=== PATIENT | female | born 1960 | race Caucasian/White ===

== ENCOUNTER 2023-02-09 22:14 | Outpatient (REF) | payer BC, SELFPAY ==
[2023-02-13 16:10] LABS: Age Gdln ACOG Testing Note (.); HPV Aptima Negative (Negative); IGP, Aptima HPV, rfx 16/18,45 Note (.)
== END 2023-02-09 22:15 | disposition home or self-care (01) ==
LOC: LAB 22:14
PROVIDERS: PCP Family Medicine; Visit Provider Physician Assistant
DX: Z01.419 Encounter for gynecological examination (general) (routine) without abnormal findings (principal)
CPT/HCPCS: 87624; G0145

== ENCOUNTER 2023-02-24 09:20 | Outpatient (OUT) | payer BC, SELFPAY ==
[2023-02-24 09:51] LABS: Estimated Average Glucose 146 mg/dL; Glycohemoglobin A1C 6.7 % (4.5-6.2)
[2023-02-24 10:09] LABS: Alanine Aminotransferase 18 U/L (14-59); Albumin Globulin Ratio 1.2; Albumin Level 3.6 g/dL (3.4-5.0); Alkaline Phosphatase 83 U/L (46-116); Aspartate Amino Transferase 11 U/L (15-37); Bilirubin Direct 0.1 mg/dL (0.0-0.2); Bilirubin Total 0.3 mg/dL (0.2-1.0); Chol HDL Ratio 3.2; Cholesterol 203 mg/dL (<=200); Globulin 3.1 g/dL; HDL Cholesterol 64 mg/dL (40-60); Total Protein 6.7 g/dL (6.4-8.2); Triglycerides 181 mg/dL (<=150); VLDL CHOLESTEROL 36.2 mg/dL
== END 2023-02-24 09:21 | disposition home or self-care (01) ==
LOC: LAB 09:22
PROVIDERS: PCP Family Medicine; Visit Provider Family Medicine
DX: E78.5 Hyperlipidemia, unspecified (principal); E11.9 Type 2 diabetes mellitus without complications
CPT/HCPCS: 36415; 80061; 80076; 83036

== ENCOUNTER 2023-05-12 12:49 | Outpatient (OUT) | payer BC, SELFPAY ==
--- NOTE | 2023-05-12 12:52 | MM_ITS ---
Patient: DIALLO RAHMAN Exam Date: 05/12/2023 : 1960 Gender:F Ordering : DR Abiodun Brewer . Admission #: [id number] Family : DR Prem Verdin . Order #: [id number] CLICK HERE TO VIEW EXAM RADIOLOGY REPORT PROCEDURE: MM TOMOSYNTHESIS SCREENING BI COMPARISON: MG MAMM SCREEN 3D [facility] CAD, 04/24/2022. MG MAMM SCREEN 3D [facility]IS[facility] CAD, 03/29/2021. INDICATIONS: Screening Calculator Name NCI Breast Cancer Risk Assessment Tool 5 Year Breast Cancer Risk 1.80% Lifetime Breast Cancer Risk 7.20% Personal Breast Cancer No Personal Ovarian Cancer No Treatments None Family Cancers Brother with kidney cancer at age 67. LOCATION: [facility] BREAST COMPOSITION: Heterogeneously dense,which may obscure small masses. FINDINGS: DIAGNOSTIC CATEGORY 2--BENIGN FINDING. NO CHANGE FROM COMPARISON. Scattered benign-appearing calcifications are present. Scattered benign-appearing lymph nodes are present. RIGHT BREAST: No significant suspicious finding. LEFT BREAST: No significant suspicious finding. RECOMMENDATIONS: ROUTINE MAMMOGRAM AND CLINICAL EVALUATION IN 12 MONTHS. PLEASE NOTE: A NORMAL MAMMOGRAM DOES NOT EXCLUDE THE POSSIBILITY OF BREAST CANCER. A CLINICALLY SUSPICIOUS PALPABLE LUMP SHOULD BE BIOPSIED. Dictated by: Gerardo Rock MD on 05/12/2023 at 15:39 Approved by: Gerardo Rock MD on 05/12/2023 at 15:40
== END 2023-05-12 12:50 | disposition home or self-care (01) ==
LOC: MAMMO 12:49
PROVIDERS: PCP Family Medicine; Visit Provider Obstetrics & Gynecology
DX: Z12.31 Encounter for screening mammogram for malignant neoplasm of breast (principal); Z80.51 Family history of malignant neoplasm of kidney
CPT/HCPCS: 77063; 77067

== ENCOUNTER 2024-02-01 08:45 | Outpatient (OUT) | payer MEDICARE, BC, SELFPAY ==
--- OUTSIDE RECORDS SUMMARY | 2024-02-01 08:51 | XMS_ITS | CCD ---
Author Organization [facility] Care Team Providers Care Teacher Instrumental Name Role Phone Rafa Verdin Primary Care Provider Unavailabl e Yehuda Camara Attending Provider Unavailable Rafa Verdin MD Primary Care Provider [phone] Yehuda Camara Unavailable Jose Hwang II Unavailable Rick Stephenson Unavailable Rafa Verdin MD Primary Care Provider [phone] MD Rafa Verdin Primary Care Provider [phone] MD Kee Serrato Attending Provider Kee Serrato Attending Unavailable Kee Serrato Admitting Unavailable Rafa Verdin Primary Care Unavailable Rafael Hernandez Attending Unavailable Rafael Hernandez Admitting Unavailable Rafa Verdin M Primary Care Unavailable Yehuda Camara Attending Unavailable Yehuda Camara Admitting Unavailable Rafa Verdin Primary Care Unavailable BRIANNA ROMERO Admitting Unavailable MARE Avendaño, DR CRAIG Primary Care Unavailable BRIANNA ROMERO Attending Unavailable BRIANNA ROMERO Consulting Unavailable DAYANA DUTTA Consulting Unavailable RAYMONDY ., DR CRIAG Admitting Unavailable HOY ., DR CRAIG Attending Unavailable HOY ., DR CRAIG Primary Care Unavailable HOY ., DR CRAIG Admitting Unavailable HOY ., DR CRAIG Referring Unavailable HOY ., DR CRAIG Attending Unavailable HOY ., DR CRAIG Consulting Unavailable HOY ., DR CRAIG Primary Care Unavailable TAMMY ., DR SEYMOUR Admitting Unavailable TAMMY ., DR SEYMOUR Attending Unavailable HOY ., DR CRAIG Primary Care Unavailable TAMMY ., DR SEYMOUR Consulting Unavailable TAMMY ., DR SEYMOUR Admitting Unavailable TAMMY ., DR SEYMOUR Attending Unavailable SPARLAND, DR RENETTA Akhtar Consulting Unavailable HOY ., DR CRAIG Primary Care Unavailable TAMMY ., DR SEYMOUR Consulting Unavailable KEE SERRATO Admitting Unavailable MARE ., DR CRAIG Primary Care Unavailable KEE SERRATO Attending Unavailable KEE SERRATO Consulting Unavailable TAMMY ., DR SEYMOUR Admitting Unavailable TAMMY ., DR SEYMOUR Attending Unavailable SPARLAND, DR RENETTA Akhtar Consulting Unavailable HOY ., DR CRAIG Primary Care Unavailable TAMMY ., DR SEYMOUR Consulting Unavailable Rafa Verdin MD Primary Care Provider [phone] SELF, SELF Referring Unavailable RAN, CYNTHIA Attending Unavailable HOY, RAFA M Primary Care Unavailable RAN, CYNTHIA Referring Unavailable RAN, CYNTHIA Attending Unavailable HOY, RAFA M Primary Care Unavailable SELF, SELF Referring Unavailable RAN, CYNTHIA Attending Unavailable HOY, RAFA M Primary Care Unavailable SELF, SELF Referring Unavailable RAN, CYNTHIA Attending Unavailable HOY, RAFA M Primary Care Unavailable HOY, RAFA M Primary Care Unavailable RAN, CYNTHIA Attending Unavailable RAN, CYNTHIA Referring Unavailable NICOLE, KEE Attending Unavailable RAYMONDY, RAFA M Primary Care Unavailable KEE SERRATO Referring Unavailable SELF, SELF Referring Unavailable HOY, RAFA M Primary Care Unavailable NICOLE, KEE Attending Unavailable RAN, CYNTHIA Referring Unavailable RAN, CYNTHIA Attending Unavailable HOY, RAFA M Primary Care Unavailable Unavailable Unavailable Unavailable Allergies Allergy Classification Reported Allergen(s) Allergy Type Date of Onset Reaction(s) Facility (17 sources) Diclofenac; Translations: [diclofenac] Drug Allergy 07-06-19 18 Nausea Only [facility] (17 sources) Lisinopril; Translations: [lisinopril] Drug Allergy 04-18-20 19 Cough [facility] (20 sources) pioglitazone; Translations: [pioglitazone] Drug Allergy 09-28-19 19 Itching [facility] (3 sources) Sulfonamides (Antibiotic); Translations: [Sulfa (Sulfonamide Antibiotics)] Allergy to substance 09-28-19 Rash [facility] (20 sources) traMADol; Translations: [tramadol] Drug Allergy 09-28-19 19 Itching, rash [facility] (12 sources) Sulfonamides (Antibiotic) Propensity to adverse reactions to drug 10-11-19 22 Hives [facility] (8 sources) Nisoldipine Drug Allergy rash [facility] Other (8 sources) Sulfamethoxazole / Trimethoprim Drug Allergy Unknown [facility] Other (8 sources) Sulfonamides (Antibiotic) Propensity to adverse reactions Unknown [facility] Other (6 sources) sulfaSALAzine Drug Allergy Unknown [facility] Other (1 source) meloxicam Drug Allergy [facility] (2 sources) pioglitazone Drug Allergy [facility] (2 sources) Sulfonamides (Antibiotic) Drug allergy (disorder) [facility] (2 sources) traMADol Drug Allergy [facility] Medications Current Medications Medication Drug Class(es) Dates Sig (Normalized) Sig (Original) acetaminophen 325 mg oral tablet (15 sources) Start: 03-04-2022 take 2 tablets by mouth every four hours as needed acetaminophen 325 MG tablet Take 2 tablets by mouth every 4 hours as needed for Mild Pain. 50 tablet 1 03/04/2022 Active Start: 04-18-2019 End: 05-03-2019 take 2 tablets by mouth every six hours Acetaminophen (Tylenol Extra Strength) 500 mg Tablet Discontinued 1000 MG PO Q6H April 17, 2019 11:00pm May 03, 2019 8:44am Start: 09-13-2018 End: 09-28-2018 take 2 tablets by mouth every six hours Acetaminophen (Tylenol Extra Strength) 500 mg Tablet Discontinued 1000 MG PO Q6H September 12, 2018 11:00pm September 28, 2018 10:29am take 1 tablet by jessica th every four hours Tylenol 325 MG 1 tablet as needed Orally every 4 hrs Active amoxicillin 500 mg oral capsule (10 sources) Penicillin-class Antibacterial Start: 12-05-2021 amoxicillin 500 MG capsule Prior to dental work. 0 12/05/2021 Active aspirin 81 mg delayed release oral tablet (8 sources) Platelet Aggregation Inhibitor, Nonsteroidal Anti-inflammatory Drug Start: 03-04-2022 aspirin EC [address] Take 1 table twice a day for 30days. This medication is for blood clot prevention. 60 tablet 0 03/04/2022 Active Start: 09-28-2018 End: 04-18-2019 take 81 mg by mouth twice daily Aspirin Discontinued 81 MG PO Twice daily 0 September 27, 2018 11:00pm April 18, 2019 9:51am Cbd Salve (2 sources) Start: 04-18-2019 apply 125 mg topical ly twice daily Cbd Salve Active 125 MG Topical Twice daily April 18, 2019 10:58am Start: 04-18-2019 apply 125 mg topically twice d aily Cbd Salve Active 125 MG TOPICAL Twice daily April 17, 2019 11:00pm cholecalciferol 2000 unt oral tablet (4 sources) Vitamin D Start: 04-18-2019 take 2000 [IU] by mouth once daily Cholecalciferol (Vitamin D3) Active 2000 UNIT Oral Daily April 18, 2019 10:51am take 1 tablet by jessica every twenty-four hours Vitamin D 50 MCG (1999 UT) 1 tablet Orally Once a day Active 1 ml dexamethasone phosphate 4 mg/ml injection (5 sources) Corticosteroid Start: 08-19-2021 Dexamethasone Sodium Phosphate 4 MG/ML apply 1.5-2.5 ml as directed with PT up to 3 times weekly Iontophoresis Aug, Active Start: 08-13-2021 Dexamethasone Sodium Phosphate 4 MG/ML 1.5 ml to 2.5 ml Iontophoresis up to 3 weeks with therapy Aug, Active Start: 08-13-2021 Dexamethasone Sodium Phosphate 4 MG/ML 1.5 ml to 2.5 ml Iontophoresis up to 3 weeks with therapy Aug, Active docusate sodium 100 mg oral capsule (9 sources) Start: 05-03-2019 take 1 capsule by mouth twice daily docusate 100 MG capsule Take 1 capsule by mouth 2 times daily. 60 capsule 0 03/04/2022 Active empagliflozin 25 mg oral tablet (4 sources) Sodium-Glucose Cotransporter 2 Inhibitor Start: 04-18-2019 take 25 mg by mouth once daily in the morning Empagliflozin Active 25 MG Oral Every morning April 18, 2019 10:51am glimepiride 4 mg oral tablet (20 sources) Sulfonylurea Start: 09-13-2018 take 8 mg by mouth once daily in the morning Glimepiride Active 8 MG Oral Every morning September 13, 2018 12:34pm take 2 tablets by mo ut once daily in the morning gliMEPIride 4 MG tablet Take by mouth da paras every morning. Takes 2 tablets every morning 0 Active Glimepiride 4 MG (Prior Auth: Rx Ref#:[id number]) Oral for 30 Active hydrOXYzine pamoate 25 mg oral capsule (13 sources) Antihistamine Start: 05-03-2019 take 25 mg by mouth every three hours Hydroxyzine Pamoate Active 25 MG Oral Q3H 0 May 03, 2019 9:44am Start: 05-03-2019 take 50 mg by mouth every three hours Hydroxyzine Pamoate Active 50 MG Oral Q3H 0 May 03, 2019 9:44am Start: 09-28-2018 End: 04-18-2019 take 1 capsule by mouth every four hours Hydroxyzine Pamoate (Vistaril) 25 mg capsule Discontinued 25 MG PO Q4H September 27, 2018 11:00pm April 18, 2019 9:56am Start: 09-22-2018 take 1 capsule by mo uth every eight hours Vistaril 25 MG 1 capsule as needed Orally every 8 hrs for 7 days DO NOT FILL UNTIL 09/26/2018 Sep, Not-Taking losartan potassium 100 mg oral tablet (20 sources) Angiotensin 2 Receptor Soto Start: 09-13-2018 take 100 mg by mouth once daily in the morning Losartan Active 100 MG Oral Every morning September 13, 2018 12:34pm meloxicam 7.5 mg oral tablet (20 sources) Nonsteroidal Anti-inflammatory Drug Start: 03-04-2022 take 1 tablet by mouth once daily meloxicam 7.5 MG tablet Take 1 tablet by mouth daily. 30 tablet 1 05/05/2022 Active Start: 04-18-2019 take 15 mg by mouth once daily Meloxicam Active 15 MG Oral Daily April 18, 2019 10:51am take 1 tablet by jessica once daily meloxicam 7.5 MG tablet Take 7.5 mg by mouth daily. 0 Active 24 hr metFORMIN hydrochloride 500 mg extended release oral tablet (20 sources) Biguanide Start: 09-13-2018 take 1000 mg by mouth twice daily Metformin Active 1000 MG Oral Twice daily September 13, 2018 12:34pm take 1 tablet by mouth twice neeraj ly metFORMIN 1000 MG tablet Take 1,000 mg by mouth 2 times daily. 0 Active metFORMIN HCl ER 500 MG (Prior Auth: Rx Ref#:[id number]) Oral for 90 Active methylPREDNISolone 4 mg oral tablet (7 sources) Corticosteroid Start: 03-26-2022 methylPREDNIsolone 4 MG Tab Therapy Pack tablet Take 1 tablet by mouth As directed. follow package directions 21 tablet 0 03/26/2022 Active naloxone hydrochloride 40 mg/ml nasal spray (4 sources) Opioid Antagonist Start: 03-11-2022 End: 03-11-2022 naloxone 4 MG/0.1ML 1 spray by Nasal route once for 1 dose. [place] into the nose as directed. Call 911. If no response in 2 minutes use a new nasal spray in other nostril. Repeat until help arrives. 1 Each 0 03/11/2022 Active omega-3 acid ethyl esters (care home) 1000 mg oral capsule (2 sources) Start: 09-13-2018 take 3 g by mouth twice daily Victor-3 Acid Ethyl Esters Active 3 GM Oral Twice daily September 13, 2018 12:34pm omeprazole 20 mg delayed release oral capsule (12 sources) Proton Pump Inhibitor Start: 03-04-2022 take 1 capsule by mouth once daily omeprazole [address] capsule Take 1 capsule by mouth daily. 30 capsule 0 03/04/2022 Active take 1 capsule by mouth once neeraj ly omeprazole [address] capsule Take 20 mg by mouth daily. 0 Active oxyCODONE hydrochloride 5 mg oral tablet (4 sources) Opioid Agonist Start: 03-11-2022 oxyCODONE 5 MG tablet Indications: Acute postoperative pain of right knee Take one to two tabs every 4-6 hours as needed for severe pain. Wean as tolerated 20 tablet 0 03/11/2022 Active pantoprazole 40 mg delayed release oral tablet (2 sources) Proton Pump Inhibitor take 1 tablet by mouth every twenty-four hours Pantoprazole Sodium 40 MG 1 tablet Orally Once a day Active rivaroxaban 10 mg oral tablet (2 sources) Factor Xa Inhibitor Start: 05-03-2019 take 10 mg by mouth once daily Rivaroxaban Active 10 MG Oral DAILY@1700 0 May 03, 2019 9:44am simvastatin 20 mg oral tablet (11 sources) HMG-CoA Reductase Inhibitor Start: 09-13-2018 take 20 mg by mouth once daily at bedtime Simvastatin Active 20 MG Oral Daily at bedtime September 13, 2018 12:34pm SITagliptin 100 mg oral tablet (20 sources) Dipeptidyl Peptidase 4 Inhibitor Start: 09-13-2018 take 1 tablet by mouth once daily Januvia 100 MG tablet Take 100 mg by mouth daily. 0 08/26/2021 Active sucralfate 1000 mg oral tablet (15 sources) Aluminum Complex Start: 03-04-2022 take 1 tablet by mouth every six hours sucralfate 1 g tablet Take 1 tablet by mouth every 6 hours. 120 tablet 0 03/04/2022 Active take 1 tablet by jessica th every twelve hours Sucralfate 1 GM 1 tablet on an empty stomach Orally Twice a day Active therapeutic multivitamin-minerals tablet (7 sources) Start: 03-04-2022 take 1 tablet by mouth at bedtime therapeutic multivitamin-minerals tablet Take 1 tablet by mouth at bedtime. 30 tablet 0 03/04/2022 Active Completed/Discontinued Medications Medication Drug Class(es) Dates Sig (Normalized) Sig (Original) acetaminophen 325 mg / oxyCODONE hydrochloride 5 mg oral tablet (11 sources) Opioid Agonist Start: 09-22-2018 End: 10-12-2018 take 1 tablet by mouth every four to six hours Oxycodone-Acetamin ophen (Percocet) 5-325 mg tablet Discontinued 1 - 2 TAB PO EVERY 4-6 HOURS 30 September 28, 2018 October 11, 2018 11:02pm bisacodyl 5 mg delayed release oral tablet (1 source) Stimulant Laxative Start: 09-28-2018 End: 04-18-2019 take 10 mg by mouth once Bisacodyl Discontinued 10 MG PO Once 0 September 27, 2018 11:00pm April 18, 2019 9:56am diclofenac sodium 0.01 mg/mg topical gel (20 sources) Nonsteroidal Anti-inflammatory Drug Start: 11-09-2019 Diclofenac Sodium 1 % 1-2 grams to effected area Transdermal Twice a day for 30 day(s) November, Not-Taking Start: 11-08-2018 take 1 tablet by jessica th every twelve hours Diclofenac Sodium 75 MG 1 tablet with food or milk Orally Twice a day for 30 day(s) November, Not-Taking Start: 09-13-2018 End: 09-28-2018 take 75 mg by mouth twice daily Diclofenac Sodium Disc ontinued 75 MG PO Twice daily September 12, 2018 11:00pm September 28, 2018 10:29am 10 ml lidocaine hydrochloride 10 mg/ml injection (2 sources) Antiarrhythmic, Amide Local Anesthetic Start: 10-25-2021 End: 10-25-2021 lidocaine (XYLOCAINE) 10 mg/mL injection 3 mL 1 ml triamcinolone acetonide 40 mg/ml prefilled syringe (4 sources) Corticosteroid Start: 01-16-2022 End: 01-16-2022 triamcinolone (KENALOG-40) injection 1 mL Start: 10-25-2021 End: 10-25-2021 triamcinolone (KENALOG-40) i njection 1 mL Problems Active Problems Problem Classification Problem Date Documented Da te Episodic/Chronic Calculus of urinary tract (1 source) Personal history of urinary calculi; Translations: [PERSONAL HISTORY OF URINARY CALCULI] Onset: 11-03-2022 Episodic Congestive heart failure; nonhypertensive (1 source) Unspecified diastolic (congestive) heart failure; Translations: [UNSPECIFIED DIASTOLIC HEART FAILURE] Onset: 11-15-2021 Chronic Diabetes mellitus without complication (1 source) Type 2 diabetes mellitus without complications; Translations: [TYPE 2 DM WITHOUT COMPLICATIONS] Onset: 11-15-2021 Chronic Disorders of lipid metabolism (2 sources) Pure hypercholesterolemia , unspecified; Translations: [Hyperlipidemia, unspecified] Onset: 11-15-2021 Chronic Essential hypertension (1 source) Essential (primary) hypertension; Translations: [ESSENTIAL PRIMARY HYPERTENSION] Onset: 11-03-2022 Chronic Hypertension with complications and secondary hypertension (1 source) Hypertensive heart disease with heart failure; Translations: [HTN HEART DISEASE W/HEART FAIL] Onset: 11-15-2021 Chronic Malaise and fatigue (1 source) Asthenia; Translations: [Weakness] Onset: 05-23-2022 Episodic Nutritional deficiencies (4 sources) Vitamin D deficiency, unspecified; Translations: [VITAMIN D DEFICIENCY UNSPECIFIED] Onset: 11-13-2021 Chronic Osteoarthritis (20 sources) Osteoarthritis of right hip joint; Translations: [Unilateral primary osteoarthritis, right hip] Onset: 04-09-2021 Resolved: 06-05-2021 Chronic Osteoarthritis (1 source) Osteoarthritis of left knee joint; Translations: [Primary osteoarthritis of left knee] Other aftercare (4 sources) Aftercare following joint replacement surgery; Translations: [AFTERCARE FOLLOW JNT REPLACE SURG] Onset: 03-11-2022 Chronic Other aftercare (1 source) Other longterm (current) drug therapy; Translations: [OTH ASSISTED CURRENT DRUG THERAPY] Onset: 11-03-2022 Episodic Other aftercare (1 source) 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; Translations: [ASSISTED USE ORAL HYPOGLYCEMIC DX] Onset: 11-03-2022 Episodic Other connective tissue disease (20 sources) History of total knee arthroplasty; Translations: [Presence of right artificial knee joint] 05-03-2019 Chronic Other connective tissue disease (6 sources) Presence of right artificial knee joint; Translations: [History of total right knee replacement Z96.651] Onset: 04-09-2021 Resolved: 06-05-2021 Chronic Other connective tissue disease (3 sources) Presence of left artificial knee joint; Translations: [Status post total left knee replacement Z96.652] Onset: 04-09-2021 Resolved: 06-05-2021 Chronic Other connective tissue disease (4 sources) History of right total knee replacement; Translations: [Presence of right artificial knee joint] Chronic Other non-traumatic joint disorders (2 sources) Pain in right hip joint; Translations: [Pain in right hip] Episodic Other non-traumatic joint disorders (5 sources) Pain in right knee; Translations: [Pain in joint, lower leg] Onset: 11-01-2022 Episodic Residual codes; unclassified (1 source) Acquired absence of ovaries, unilateral; Translations: [ACQUIRED ABSENCE OVARIES UNILATERAL] Onset: 11-03-2022 Episodic Unclassified (1 source) T84.50XD - Infection and inflammatory reaction due to unspecified internal joint prosthesis, subsequent encounter; Translations: [T84.50XD - Infection and inflammatory reaction due to unspecified internal joint prosthesis, subsequent encounter] Onset: 12-12-2021 Unclassified (1 source) M17.0 - Bilateral primary osteoarthritis of knee; Translations: [M17.0 - Bilateral primary osteoarthritis of knee] Onset: 09-06-2021 Unclassified (1 source) LOW BACK PAIN, UNSPECIFIED; Translations: [LOW BACK PAIN, UNSPECIFIED] Onset: 11-03-2022 Past or Other Problems Problem Classification Problem Date Documented Da te Episodic/Chronic Complication of device; implant or graft (9 sources) Joint pain; Translations: [Pain due to internal orthopedic prosthetic devices, implants and grafts, initial encounter] Onset: 03-04-2022 Episodic Deficiency and other anemia (1 source) Anemia, unspecified; Translations: [ANEMIA UNSPECIFIED] Onset: 11-15-2021 Episodic Diabetes mellitus without complication (1 source) Other abnormal glucose; Translations: [OTHER ABNORMAL GLUCOSE] Onset: 11-15-2021 Episodic Immunizations and screening for infectious disease (1 source) Encounter for screening for human papillomavirus (HPV); Translations: [ENC SCREENING HUMAN PAPILLOMAVIRUS] Onset: 02-09-2022 Episodic Other bone disease and musculoskeletal deformities (1 source) Other specified disorders of bone density and structure, other site; Translations: [OTH D/O BONE DEN STRUCT OTH SITE] Onset: 02-12-2022 Episodic Other screening for suspected conditions (not mental disorders or infectious disease) (12 sources) Encounter for screening mammogram for malignant neoplasm of breast; Translations: [Encounter for screening for osteoporosis] Onset: 02-06-2022 Episodic Residual codes; unclassified (1 source) Family history of malignant neoplasm of kidney; Translations: [FAM HX MALIGNANT NEOPLASM KIDNEY] Onset: 04-29-2022 Episodic Residual codes; unclassified (1 source) Edema, unspecified; Translations: [EDEMA UNSPECIFIED] Onset: 11-15-2021 Episodic Results Test Name Value Interpretation Reference Range Facility XR HIP RT 2 3V W PELVISon XR HIP RT 2 3V W PELVIS IMAGES REVIEWED: XR HIP RT 2 3V W PELVIS COMPARISON: 12/26/2020. CLINICAL INDICATION: Pain FINDINGS/IMPRESSION: 1. Moderate osteoarthritis of bilateral hips, right more severe than left. Findings appear unchanged compared to prior. 2. No radiographic evidence of acute osseous abnormality of the right hip/pelvis. 3. Osteopenia. Electronically authenticated by: DAYANA DUTTA Date: 2022-11-01 20:39 Normal [facility] XR KNEE RT 4V or >on 023 XR KNEE RT 4V or > IMAGES REVIEWED: XR KNEE RT 4V or > COMPARISON: 06/25/2022. CLINICAL INDICATION: Pain FINDINGS/IMPRESSION: No evidence of acute osseous abnormality of the right knee. Constrained longstem right total knee arthroplasty without evidence of complication. No joint effusion. Electronically authenticated by: DAYANA DUTTA Date: 2022-11-01 20:37 Normal [facility] XR LSPINE 2_3 VIEWSon 2022 XR LSPINE 2_3 VIEWS IMAGES REVIEWED: XR LSPINE 2_3 VIEWS COMPARISON: 12/18/2020, 12/26/2020. CLINICAL INDICATION: Pain. FINDINGS/IMPRESSION: 1. No radiographic evidence of acute osseous abnormality of the lumbar spine. 2. Grade 1 anterolisthesis of L3 on L4 and L4 on L5 due to lower lumbar facet arthropathy as before. 3. Moderate-severe degenerative disc disease at L5-S1 as before. Electronically authenticated by: DAYANA DUTTA Date: 2022-11-01 20:41 Normal [facility] MAMM SCREEN 3D CARISSA CADon 04-24-2022 MG MAMM SCREEN 3D CARISSA CAD Patient: KATT RAHMAN Exam Date: 04/24/2022 : 1960 Gender:F Ordering : DR DAWN MUNOZ . Admission #: [id number] Family : Order #: [id number] CLICK HERE TO VIEW EXAM RADIOLOGY REPORT PROCEDURE: MAMMOGRAM SCREENING 3D BILATERAL CAD COMPARISON: MG MAMM SCREEN CARISSA W CAD, 11/24/2018. MG MAMM SCREEN 3D CARISSA CAD, 03/29/2021. INDICATIONS: Screening mammography Calculator Name NCI Breast Cancer Risk Assessment Tool 5 Year Breast Cancer Risk 1.70% Lifetime Breast Cancer Risk 7.40% Personal Breast Cancer No Personal Ovarian Cancer No Treatments None Family Cancers Brother with kidney cancer at age 67. LOCATION: [facility] BREAST COMPOSITION: Heterogeneously dense,which may obscure small masses. FINDINGS: DIAGNOSTIC CATEGORY 2--BENIGN FINDING. NO CHANGE FROM COMPARISON. Scattered benign-appearing calcifications are present. RIGHT BREAST: No significant suspicious finding. LEFT BREAST: No significant suspicious finding. RECOMMENDATIONS: ROUTINE MAMMOGRAM AND CLINICAL EVALUATION IN 12 MONTHS. PLEASE NOTE: A NORMAL MAMMOGRAM DOES NOT EXCLUDE THE POSSIBILITY OF BREAST CANCER. A CLINICALLY SUSPICIOUS PALPABLE LUMP SHOULD BE BIOPSIED. Dictated by: Renetta Mccray MD on 04/24/2022 at 12:00 Approved by: Renetta Mccray MD on 04/24/2022 at 12:05 Normal [facility] PROF CHEM 8 (BAS METB)on Anion gap [Moles/Vol] 12.3 mmol/L Normal [facility] Comment on above: Performed By: #### B MP #### [facility] [address] [address] [address] Katlyn Barahona Calcium [Mass/Vol] 8.8 mg/dL Normal 8.5-10.1 [facility] Comment on above: Performed By: #### B MP #### [facility] [address] [address] [address] Katlyn Barahona Chloride [Moles/Vol] 104 mmol/L Normal 98-107 [facility] Comment on above: Performed By: #### B MP #### [facility] [address] [address] [address] Katlyn Barahona CO2 [Moles/Vol] 27.9 mmol/L Normal 21.0-32.0 [facility] Comment on above: Performed By: #### B MP #### [facility] [address] [address] [address] Katlyn Barahona Creatinine [Mass/Vol] 1.07 mg/dL Critically high 0.55-1.02 [facility] Comment on above: Performed By: #### B MP #### [facility] [address] [address] [address] Katlyn Barahona EGFR-AF [place] >60 Normal >=60 [facility] Comment on above: Performed By: #### B MP #### [facility] [address] [address] [address] Katlyn Barahona EGFR-NON AF [place] 52 mL/min/1.73m2 Critically low >=60 [facility] Comment on above: Performed By: #### B MP #### [facility] [address] [address] [address] Katlyn Barahona Glucose [Mass/Vol] 173 mg/dL Critically high 74-106 [facility] Comment on above: Performed By: #### B MP #### [facility] [address] [address] [address] Katlyn Barahona Potassium [Moles/Vol] 4.2 mmol/L Normal 3.5-5.1 [facility] Comment on above: Performed By: #### B MP #### [facility] [address] [address] [address] Katlyn Barahona Sodium [Moles/Vol] 140 mmol/L Normal 136-145 [facility] Comment on above: Performed By: #### B MP #### [facility] [address] [address] [address] Katlyn Barahona Urea nitrogen [Mass/Vol] 20.0 mg/dL Critically high 7.0-18.0 [facility] Comment on above: Performed By: #### B MP #### [facility] [address] [place] [address] Dr. Katlyn Barahona Urea nitrogen/Creatinine [Mass ratio] 18.7 mg/mg Normal [facility] Comment on above: Performed By: #### B MP #### [facility] [address] [address] [address] Katlyn Barahona PAP ACOG PANEL 2: 30 to 65on 02-12-2022 . . Normal [facility] Comment on above: Result Comment: Perf ormed at: WB Performed By: #### T 7, CMP, LIPID, BNP, TSH #### [facility] [address] [place] [address] Dr. Katlyn Barahona Age Gdln ACOG Testing 30-65 Normal [facility] Comment on above: Performed By: #### T 7, CMP, LIPID, BNP, TSH #### [facility] [address] [place] [address] Dr. Katlyn Barahona DIAGNOSIS: Comment Normal [facility] Comment on above: Result Comment: UNSA TISFACTORY FOR EVALUATION. SPECIMEN REPROCESSED FOR INTERPRETATION USING GLACIAL ACETIC ACID (GAA). Performed at: WB Performed By: #### T 7, CMP, LIPID, BNP, TSH #### [facility] [address] [place] [address] Dr. Katlyn Barahona HPV Aptima Negative Normal Negative [facility] Comment on above: Result Comment: This nucleic acid amplification test detects fourteen high-risk HPV types (16,18,31,33,35,39,45,51,52,56,58,59,66,68) without differentiation. Performed at: =G Performed By: #### T 7, CMP, LIPID, BNP, TSH #### [facility] [address] [place] [address] Dr. Katlyn Barahona Methodology: Comment Normal [facility] Comment on above: Result Comment: This liquid based ThinPrep(R) pap test was screened with the use of an image guided system. Performed at: WB Performed By: #### T 7, CMP, LIPID, BNP, TSH #### [facility] [address] [address] [address] Katlyn Barahona Note: Comment Normal [facility] Comment on above: Result Comment: The Pap smear is a screening test designed to aid in the detection of premalignant and malignant conditions of the uterine cervix. It is not a diagnostic procedure and should not be used as the sole means of detecting cervical cancer. Both false-positive and false-negative reports do occur. . Performed at: WB Performed By: #### T 7, CMP, LIPID, BNP, TSH #### [facility] [address] [address] [address] Katlyn Barahona Performed by: Comment Normal [facility] Comment on above: Result Comment: Yuki Jang, Collar Feller (ASCP) Performed at: WB Performed By: #### T 7, CMP, LIPID, BNP, TSH #### [facility] [address] [address] [address] Katlyn Barahona QC reviewed by: Comment Normal [facility] Comment on above: Result Comment: Almaz Inman, Supervisory Collar Feller (ASCP) Performed at: WB Performed By: #### T 7, CMP, LIPID, BNP, TSH #### [facility] [address] [address] [address] Katlyn Barahona Recommendation: Comment Normal [facility] Comment on above: Result Comment: Sugg est follow up as clinically appropriate. Performed at: WB Performed By: #### T 7, CMP, LIPID, BNP, TSH #### [facility] [address] [address] [address] Katlyn Barahona Specimen adequacy: Comment Normal [facility] Comment on above: Result Comment: Spec imen processed and examined but unsatisfactory for evaluation of epithelial abnormality because of insufficient cellularity. Areas of partially obscuring blood are present. Performed at: WB Performed By: #### T 7, CMP, LIPID, BNP, TSH #### [facility] [address] [address] [address] Katlyn Barahona XR DEXA BONE DENSITYon 02-11 XR DEXA BONE DENSITY EXAMINATION: XR DEX A BONE DENSITY, 02/11/2022 9:33 AM EDT HISTORY: Gynecologic examination COMPARISON: 2011 TECHNIQUE: Dual-energy X-ray absorptiometry (DEXA) bone density study performed for the axial skeleton. FINDINGS: Bone mineral density AP spine L1-L4 measures 1.143 g/sq cm. T score -0.3. WHO classification: Normal Bone mineral density is lowest in the right femoral trochanter measuring 0.67 g/sq cm. T score -1.9. WHO classification: Osteopenia IMPRESSION: Osteopenia. Moderate fracture risk Electronically authenticated by: RENETTA MCCRAY Date: 2022-02-11 18:42 Normal [facility] LARGE JOINT/BURSA INJECTION AND/OR ASPIRATION: R hip jointon 01-16-2022 Dejuan Willard 01/16/2022 3:57 PM LARGE JOINT/BURSA INJECTION AND/OR ASPIRATION: R hip joint Date/Time: 01/16/2022 11:00 AM Supporting Documentation Indications: pain Procedure Details: Location: hip - R hip joint Local Anesthetic: lidocaine 1% Total Local Anesthetic: 3 mLs Guidance: ultrasound Images were saved electronically. Needle size: 22 G Medication Verification: I have personally verified and performed the final check of the medication(s) used in this procedure prior to administration. The following items were included during the verification process for medication(s) administered: drug name, strength, volume, expiration, physical integrity and appearance of the medication(s). Medications administered: 1 mL triamcinolone 40 MG/ML Patient tolerance: patient tolerated the procedure well with no immediate complications Consent: Consent was obtained prior to the procedure after discussion of the risks, benefits and alternatives, and expected outcomes were discussed with the patient. The possibilities of reaction to medication, bleeding, infection, the need for additional procedures, failure to diagnosis a condition, and creating a complication requiring operation were discussed with the patient. The patient concurred with the proposed plan, giving consent. Preparation: Patient was prepped in the usual sterile fashion. [facility] Radiology Study observation (narrative) [facility] [place] bone 3 phaseon 12-12-2021 [place] bone 3 [facility] [place] [address] Nuclear Medicine Report Signed Patient: Katt Rahman MR#: [id number] : 1960 Acct:[id number] Age/Sex: 61 / F ADM Date: 12/12/21 Loc: [place] Room: Type: [facility] Attending Dr: Rafael Hernandez DO Ordering Provider: Rafael Hernandez DO Date of Service: 12/12/21 [place] bone 3 phase: T84.50XD Copies to: MD Rafael Carrillo MD WHOLE-BODY BONE SCAN WITH THREE-PHASE IMAGING OF THE KNEES: CLINICAL HISTORY: Right knee pain as well as pain at the right hip and neck. History of bilateral knee replacement 2 - 3 years ago COMPARISON: Plain films of the knees and pelvis 06/05/2021 Following the intravenous administration of 24.0 mCi of technetium 99m labeled MDP, flow images were obtained of the knees followed by immediate static blood pool imaging. There may be slight hyperemia at the lateral aspect of the left patella, as best seen on the lateral images. Delayed views of the knees were obtained in multiple projections along with whole body imaging. There is photopenia at the knees related to the prosthetic hardware. The delayed views also show increased uptake at the left patella laterally. No other focal abnormal increased uptake is seen at the knees. There is additional suspected degenerative uptake at the shoulders, greatest at the glenohumeral joint on the right. Potential degenerative uptake is also noted at the tarsal metatarsal region of the feet. No obvious asymmetry is seen at the pelvis to account for patient's hip symptoms. Patient has dextroscoliotic curvature. There is physiologic activity at the urinary tract. [place] bone 3 phase IMPRESSION: MILD HYPEREMIA AND INCREASED UPTAKE AT THE LATERAL ASPECT OF LEFT PATELLA, UNCLEAR ETIOLOGY. ADDITIONAL SUSPECTED DEGENERATIVE JOINT UPTAKE DESCRIBED. Impression dictated by: Jumana Ryder M.D.12/12/2021 1:10 PM Dictation Location: [place] [address] Transcribed By: ALBERTO 12/12/21 1310 Dictated By: Jumana Ryder MD 12/12/21 1302 Signed By: 12/12/21 1310 [facility] C REACTIVE PROTEINon 06-03-2 022 CRP [Mass/Vol] 14.7 mg/L High 0 - 10.0 MG/L [facility] Interpretation and review of laboratory results Abnormal [facility] CBC, EDIF, PLATELETon 2021 ABSOLUTE BASOPHIL COUNT 0.0 10*3/uL 0.0 - 0.2 10*3/uL [facility] Basophils/100 WBC (Bld) 0.5 % 0.0 - 2.0 % [facility] Differential cell count method Nom (Bld) AUTO DIFF % [facility] Eosinophils (Bld) [#/Vol] 0.10 10*3/uL 0.0 - 0.7 10*3/uL [facility] Eosinophils/100 WBC (Bld) 1.9 % 0.0 - 11.0 % [facility] Erythrocyte distribution width (RBC) [Ratio] 13.2 % 11.5 - 14.5 % [facility] Hematocrit (Bld) [Volume fraction] 35.2 % Low 36.0 - 48.0 % [facility] Hemoglobin (Bld) [Mass/Vol] 11.9 g/dL Low [facility] Interpretation and review of laboratory results Abnormal [facility] Lymphocytes (Bld) [#/Vol] 1.10 10*3/uL Low 1.2 - 3.4 10*3/uL [facility] Lymphocytes/100 WBC (Bld) 14.8 % Low 20.0 - 55.0 % [facility] MCH (RBC) [Entitic mass] 30.3 pg 26.0 - 35.0 PG [facility] MCHC (RBC) [Mass/Vol] 33.9 g/dL [facility] MCV (RBC) [Entitic vol] 89.4 fL [facility] Monocytes (Bld) [#/Vol] 0.6 10*3/uL 0.0 - 0.7 10*3/uL [facility] Monocytes/100 WBC (Bld) 7.6 % 0.0 - 10.0 % [facility] Neutrophils (Bld) [#/Vol] 5.7 10*3/uL 1.4 - 6.5 10*3/uL [facility] Neutrophils/100 WBC (Bld) 75.2 % High 37.0 - 75.0 % [facility] Platelet mean volume (Bld) [Entitic vol] 7.5 fL [facility] Platelets (Bld) [#/Vol] 257 10*3/uL 130.0 - 400.0 10*3/uL [facility] RBC (Bld) [#/Vol] 3.94 10*6/uL Low 4.0 - 5.4 10*6/uL [facility] WBC (Bld) [#/Vol] 7.6 10*3/uL 3.6 - 11.0 10*3/uL [facility] SEDIMENTATION RATE, AUTOMATE Don 12-06-2021 ESR (Bld) [Velocity] 12 mm/h [facility] BNPon 11-13-2021 Natriuretic peptide B (Bld) [Mass/Vol] 17.0 pg/mL Normal <=900.0 [facility] Comment on above: Performed By: #### T 7, CMP, LIPID, BNP, TSH #### [facility] [address] [place] [address] Dr. Katlyn Barahona CBC AUTO DIFFon 11-13-2021 BASO # 0.0 103/ul Normal 0.0-0.1 [facility] Comment on above: Performed By: #### T 7, CMP, LIPID, BNP, TSH #### [facility] [address] [place] [address] Dr. Katlyn Barahona Basophils/100 WBC (Bld) 0.8 % Normal 0.2-2.0 [facility] Comment on above: Performed By: #### T 7, CMP, LIPID, BNP, TSH #### [facility] [address] [place] [address] Dr. Katlyn Barahona EO # 0.1 103/ul Normal 0.0-0.7 [facility] Comment on above: Performed By: #### T 7, CMP, LIPID, BNP, TSH #### [facility] [address] [place] [address] Dr. Katlyn Barahona Eosinophils/100 WBC (Bld) 2.6 % Normal 0.9-7.0 [facility] Comment on above: Performed By: #### T 7, CMP, LIPID, BNP, TSH #### [facility] [address] [place] [address] Dr. Katlyn Barahona Erythrocyte distribution width (RBC) [Ratio] 12.6 % Normal 11.0-15.0 [facility] Comment on above: Performed By: #### T 7, CMP, LIPID, BNP, TSH #### [facility] [address] [place] [address] Dr. Katlyn Barahona Hematocrit (Bld) [Volume fraction] 38.7 % Normal 36.0-48.0 [facility] Comment on above: Performed By: #### T 7, CMP, LIPID, BNP, TSH #### [facility] [address] [place] [address] Dr. Katlyn Barahona Hemoglobin (Bld) [Mass/Vol] 12.3 g/dL Normal 12.0-16.0 [facility] Comment on above: Performed By: #### T 7, CMP, LIPID, BNP, TSH #### [facility] [address] [place] [address] Dr. Katlyn Barahona IG # 0.02 10e3/ul Normal 0.00-0.03 [facility] Comment on above: Performed By: #### T 7, CMP, LIPID, BNP, TSH #### [facility] [address] [place] [address] Dr. Katlyn Barahona IG % 0.4 % Normal 0.0-0.5 [facility] Comment on above: Performed By: #### T 7, CMP, LIPID, BNP, TSH #### [facility] [address] [place] [address] Dr. Katlyn Barahona LYMPH # 1.4 103/ul Normal 1.2-3.8 [facility] Comment on above: Performed By: #### T 7, CMP, LIPID, BNP, TSH #### [facility] [address] [place] [address] Dr. Katlyn Barahona Lymphocytes/100 WBC (Bld) 28.0 % Normal 20.5-60.0 [facility] Comment on above: Performed By: #### T 7, CMP, LIPID, BNP, TSH #### [facility] [address] [place] [address] Dr. Katlyn Barahona MANUAL DIFF REQ NO Normal [facility] Comment on above: Performed By: #### T 7, CMP, LIPID, BNP, TSH #### [facility] [address] [place] [address] Dr. Katlyn Barahona MCH (RBC) [Entitic mass] 29.8 pg Normal 26.7-34.0 [facility] Comment on above: Performed By: #### T 7, CMP, LIPID, BNP, TSH #### [facility] [address] [place] [address] Dr. Katlyn Barahona MCHC (RBC) [Mass/Vol] 31.8 g/dL Normal 29.9-35.2 [facility] Comment on above: Performed By: #### T 7, CMP, LIPID, BNP, TSH #### [facility] [address] [place] [address] Dr. Katlyn Barahona MCV (RBC) [Entitic vol] 93.7 fL Normal 81.0-99.0 [facility] Comment on above: Performed By: #### T 7, CMP, LIPID, BNP, TSH #### [facility] [address] [place] [address] Dr. Katlyn Barahona MONO # 0.4 103/ul Normal 0.3-0.8 [facility] Comment on above: Performed By: #### T 7, CMP, LIPID, BNP, TSH #### [facility] [address] [place] [address] Dr. Katlyn Barahona Monocytes/100 WBC (Bld) 8.9 % Normal 1.7-12.0 [facility] Comment on above: Performed By: #### T 7, CMP, LIPID, BNP, TSH #### [facility] [address] [place] [address] Dr. Katlyn Barahona NEUT # 3.0 103/ul Normal 1.4-6.5 [facility] Comment on above: Performed By: #### T 7, CMP, LIPID, BNP, TSH #### [facility] [address] [place] [address] Dr. Katlyn Barahona Neutrophils/100 WBC (Bld) 59.3 % Normal 43.0-75.0 [facility] Comment on above: Performed By: #### T 7, CMP, LIPID, BNP, TSH #### [facility] [address] [address] [address] Katlyn Barahona Platelet mean volume (Bld) [Entitic vol] 8.9 fL Critically low 9.5-13.5 [facility] Comment on above: Performed By: #### T 7, CMP, LIPID, BNP, TSH #### [facility] [address] [address] [address] Katlyn Barahona PLT 259 103/ul Normal 150-450 [facility] Comment on above: Performed By: #### T 7, CMP, LIPID, BNP, TSH #### [facility] [address] [address] [address] Katlyn Barahona RBC 4.13 106/ul Critically low 4.20-5.40 [facility] Comment on above: Performed By: #### T 7, CMP, LIPID, BNP, TSH #### [facility] [address] [address] [address] Katlyn Barahona WBC 5.0 103/ul Normal 4.0-11.0 [facility] Comment on above: Performed By: #### T 7, CMP, LIPID, BNP, TSH #### [facility] [address] [place] [address] Dr. Katlyn Barahona FREE THYROXINE INDEX T7on FTI 2.27 Normal 1.30-4.50 [facility] Comment on above: Performed By: #### T 7, CMP, LIPID, BNP, TSH #### [facility] [address] [address] [address] Katlyn Barahona T3U 36.0 % Normal 30.0-39.0 [facility] Comment on above: Performed By: #### T 7, CMP, LIPID, BNP, TSH #### [facility] [address] [place] [address] Dr. Katlyn Barahona T4 [Mass/Vol] 6.30 ug/dL Normal 4.80-13.90 [facility] Comment on above: Performed By: #### T 7, CMP, LIPID, BNP, TSH #### [facility] [address] [address] [address] Katlyn Barahona GLYCOHEMOGLOBIN A1Con 2021 ADA RECOMMENDATION SEE BELOW Normal [facility] Comment on above: Result Comment: ADA RECOMMENDED LIMIT 4.0 - 6.0 ADA THERAPEUTIC TARGET < 7.0 ACTION SUGGESTED > 7.0 Performed By: #### T 7, CMP, LIPID, BNP, TSH #### [facility] [address] [address] [address] Katlyn Barahona Glucose [Mass/Vol] 154 mg/dL Normal [facility] Comment on above: Performed By: #### T 7, CMP, LIPID, BNP, TSH #### [facility] [address] [place] [address] Dr. Katlyn Barahona HbA1c (Bld) [Mass fraction] 7.0 % Critically high 4.5-6.2 [facility] Comment on above: Performed By: #### T 7, CMP, LIPID, BNP, TSH #### [facility] [address] [address] [address] Katlyn Barahona IRONon 11-13-2021 Iron [Mass/Vol] 72.0 ug/dL Normal 50.0-170.0 [facility] Comment on above: Performed By: #### T 7, CMP, LIPID, BNP, TSH #### [facility] [address] [place] [address] Dr. Katlyn Barahona LIPID PROFILEon 11-13-2021 CHOL-HDL RATIO NORM SEE BELOW Normal [facility] Comment on above: Result Comment: 3.3 - 4.4 LOW RISK 4.4 - 7.1 AVERAGE RISK 7.1 - 11.0 MODERATE RISK >11.0 HIGH RISK Performed By: #### T 7, CMP, LIPID, BNP, TSH #### [facility] [address] [address] [address] Katlyn Barahona Cholesterol [Mass/Vol] 290 mg/dL Critically high <=200 [facility] Comment on above: Performed By: #### T 7, CMP, LIPID, BNP, TSH #### [facility] [address] [address] [address] Katlyn Barahona Cholesterol in HDL [Mass/Vol] 65 mg/dL Critically high 40-60 [facility] Comment on above: Performed By: #### T 7, CMP, LIPID, BNP, TSH #### [facility] [address] [address] [address] Katlyn Barahona Cholesterol in LDL [Mass/Vol] 183.4 mg/dL Normal [facility] Comment on above: Performed By: #### T 7, CMP, LIPID, BNP, TSH #### [facility] [address] [address] [address] Katlyn Barahona Cholesterol.total/Ch olesterol in HDL [Mass ratio] 4.5 {ratio} Normal [facility] Comment on above: Performed By: #### T 7, CMP, LIPID, BNP, TSH #### [facility] [address] [address] [address] Katlyn Barahona HDL NORMAL > or = 60 mg/dl - LOW CARDIOVASCULAR RISK <40 mg/dl - HIGH CARDIOVASCULAR RISK Normal [facility] Comment on above: Performed By: #### T 7, CMP, LIPID, BNP, TSH #### [facility] [address] [address] [address] Katlyn Barahona LDL CALC NORMAL SEE BELOW Normal [facility] Comment on above: Result Comment: <100 mg/dl OPTIMAL 100 - 129 mg/dl NEAR OR ABOVE OPTIMAL 130 - 159 mg/dl BORDERLINE HIGH 160 - 189 mg/dl HIGH >190 mg/dl VERY HIGH Performed By: #### T 7, CMP, LIPID, BNP, TSH #### [facility] [address] [address] [address] Katlyn Barahona Triglyceride [Mass/Vol] 208 mg/dL Critically high <=150 [facility] Comment on above: Performed By: #### T 7, CMP, LIPID, BNP, TSH #### [facility] [address] [address] [address] Katlyn Barahona VLDL CALC 41.6 mg/dL Normal [facility] Comment on above: Performed By: #### T 7, CMP, LIPID, BNP, TSH #### [facility] [address] [place] [address] Dr. Katlyn Barahona PROF 14(COMP METB)on 022 Albumin [Mass/Vol] 3.6 g/dL Normal 3.4-5.0 [facility] Comment on above: Performed By: #### T 7, CMP, LIPID, BNP, TSH #### [facility] [address] [place] [address] Dr. Katlyn Barahona Albumin/Globulin [Mass ratio] 1.1 {ratio} Normal [facility] Comment on above: Performed By: #### T 7, CMP, LIPID, BNP, TSH #### [facility] [address] [place] [address] Dr. Katlyn Barahona ALP [Catalytic activity/Vol] 91 U/L Normal 46-116 [facility] Comment on above: Performed By: #### T 7, CMP, LIPID, BNP, TSH #### [facility] [address] [place] [address] Dr. Katlyn Barahona ALT [Catalytic activity/Vol] 17 U/L Normal 14-59 [facility] Comment on above: Performed By: #### T 7, CMP, LIPID, BNP, TSH #### [facility] [address] [place] [address] Dr. Katlyn Barahona Anion gap [Moles/Vol] 12.8 mmol/L Normal [facility] Comment on above: Performed By: #### T 7, CMP, LIPID, BNP, TSH #### [facility] [address] [place] [address] Dr. Katlyn Barahona AST [Catalytic activity/Vol] 10 U/L Critically low 15-37 [facility] Comment on above: Performed By: #### T 7, CMP, LIPID, BNP, TSH #### [facility] [address] [place] [address] Dr. Katlyn Barahona Bilirubin [Mass/Vol] 0.4 mg/dL Normal 0.2-1.0 [facility] Comment on above: Performed By: #### T 7, CMP, LIPID, BNP, TSH #### [facility] [address] [address] [address] Katlyn Barahona Calcium [Mass/Vol] 8.7 mg/dL Normal 8.5-10.1 [facility] Comment on above: Performed By: #### T 7, CMP, LIPID, BNP, TSH #### [facility] [address] [place] [address] Dr. Katlyn Barahona Chloride [Moles/Vol] 103 mmol/L Normal 98-107 [facility] Comment on above: Performed By: #### T 7, CMP, LIPID, BNP, TSH #### [facility] [address] [place] [address] Dr. Katlyn Barahona CO2 [Moles/Vol] 26.4 mmol/L Normal 21.0-32.0 [facility] Comment on above: Performed By: #### T 7, CMP, LIPID, BNP, TSH #### [facility] [address] [place] [address] Dr. Katlyn Barahona Creatinine [Mass/Vol] 1.19 mg/dL Critically high 0.55-1.02 [facility] Comment on above: Performed By: #### T 7, CMP, LIPID, BNP, TSH #### [facility] [address] [place] [address] Dr. Katlyn Barahona EGFR-AF [place] 56 mL/min/1.73m2 Critically low >=60 [facility] Comment on above: Performed By: #### T 7, CMP, LIPID, BNP, TSH #### [facility] [address] [place] [address] Dr. Katlyn Barahona EGFR-NON AF [place] 46 mL/min/1.73m2 Critically low >=60 [facility] Comment on above: Performed By: #### T 7, CMP, LIPID, BNP, TSH #### [facility] [address] [place] [address] Dr. Katlyn Barahona Globulin (S) [Mass/Vol] 3.2 g/dL Normal [facility] Comment on above: Performed By: #### T 7, CMP, LIPID, BNP, TSH #### [facility] [address] [place] [address] Dr. Katlyn Barahona Glucose [Mass/Vol] 133 mg/dL Critically high 74-106 [facility] Comment on above: Performed By: #### T 7, CMP, LIPID, BNP, TSH #### [facility] [address] [place] [address] Dr. Katlyn Barahona Potassium [Moles/Vol] 4.2 mmol/L Normal 3.5-5.1 [facility] Comment on above: Performed By: #### T 7, CMP, LIPID, BNP, TSH #### [facility] [address] [place] [address] Dr. Katlyn Barahona Protein [Mass/Vol] 6.8 g/dL Normal 6.4-8.2 [facility] Comment on above: Performed By: #### T 7, CMP, LIPID, BNP, TSH #### [facility] [facility] [address] [place] [address] Dr. Katlyn Barahona Sodium [Moles/Vol] 138 mmol/L Normal 136-145 [facility] Comment on above: Performed By: #### T 7, CMP, LIPID, BNP, TSH #### [facility] [address] [place] [address] Dr. Katlyn Barahona Urea nitrogen [Mass/Vol] 17.0 mg/dL Normal 7.0-18.0 [facility] Comment on above: Performed By: #### T 7, CMP, LIPID, BNP, TSH #### [facility] [address] [place] [address] Dr. Katlyn Barahona Urea nitrogen/Creatinine [Mass ratio] 14.3 mg/mg Normal [facility] Comment on above: Performed By: #### T 7, CMP, LIPID, BNP, TSH #### [facility] [address] [place] [address] Dr. Katlyn Barahona TSHon 11-13-2021 TSH 1.384 uIU/mL Normal 0.358-3.740 [facility] Comment on above: Performed By: #### T 7, CMP, LIPID, BNP, TSH #### [facility] [address] [place] [address] Dr. Katlyn Barahona TSH RANGE SEE BELOW Normal [facility] Comment on above: Result Comment: <0.3 4 UIU/ml HYPERTHYROID 0.34-5.60 UIU/ml EUTHYROID >5.60 UIU/ml HYPOTHYROID Performed By: #### T 7, CMP, LIPID, BNP, TSH #### [facility] [address] [address] [address] Katlyn Barahona VITAMIN D 25 OHon 11-13-2021 VIT D 25-OH 23.2 ng/mL Normal [facility] Comment on above: Performed By: #### T 7, CMP, LIPID, BNP, TSH #### [facility] [address] [address] [address] Katlyn Barahona VIT D RANGES SEE BELOW Normal [facility] Comment on above: Result Comment: <20 ng/mL Vit D deficient 20 - <30 ng/mL Vit D insufficient 30 - 100 ng/mL Vit D sufficient >100 ng/mL Potential Toxicity Performed By: #### T 7, CMP, LIPID, BNP, TSH #### [facility] [address] [address] [address] Katlyn Barahona LARGE JOINT/BURSA INJECTION AND/OR ASPIRATION: R hip jointon 10-25-2021 Chanda Liang 10/25/2021 3:52 PM LARGE JOINT/BURSA INJECTION AND/OR ASPIRATION: R hip joint Date/Time: 10/25/2021 11:30 AM Supporting Documentation Indications: pain Procedure Details: Location: hip - R hip joint Guidance: ultrasound Images were saved electronically. Needle size: 22 G Medication Verification: I have personally verified and performed the final check of the medication(s) used in this procedure prior to administration. The following items were included during the verification process for medication(s) administered: drug name, strength, volume, expiration, physical integrity and appearance of the medication(s). Medications administered: 3 mL lidocaine 10 mg/mL; 1 mL triamcinolone 40 MG/ML Patient tolerance: patient tolerated the procedure well with no immediate complications Consent: Consent was obtained prior to the procedure after discussion of the risks, benefits and alternatives, and expected outcomes were discussed with the patient. The possibilities of reaction to medication, bleeding, infection, the need for additional procedures, failure to diagnosis a condition, and creating a complication requiring operation were discussed with the patient. The patient concurred with the proposed plan, giving consent. Preparation: Patient was prepped in the usual sterile fashion. The patient was prepped with alcohol and Chloraprep. [facility] Operative Reporton Operative Report [id number] #1.00CD:127 Normal [facility] Lab Reportson 04-15-2021 Lab Reports [id number] #1.00CD:127 Normal [facility] Formson 04-11-2021 Forms [id number] #1.00CD:127 Normal [facility] General Surgery Office/Clini c Noteon 04-10-2021 General Surgery Office/Clinic Note CD:[id number] 82BN08jJaezuRzj1ukuc 4uLX5lZjWqvyHuOZpmMz 7kf3omDO06mk0kGsTwGa 8+WcuuCV9PPKsFFBIn aX0xAXLXOilZRlItIF4o PzZWAs5JTSKnNLyPOBkh PN3eOJC8zgfqqC6rCQ6i YELaqKMkRj6hw7t2 ZkymKn5iHj7NUs17eHDh xBMvWQJFZ2flrT2eJW3u eLXoD1NnPZZrPp5AWBc2 bBvaaX2zieZ3Zif3 iHC9Ow03s8vaphZcr4Rv AoE0RRorsXm9rVigFTdm xH1hLmPaSRCJyL4bfNgc HE1ykO2jylRtyScp biI+QmekNOIjNey6oWVp UW34C0OrzMfeUwc2zRJ3 YHVijNZyIVNrxVo6OCST LVVBLUNvbXBhdGli eQDnYWQbzeJdryZ2XnzL RLOuVnYaYze2M9zoMXU+ Ucgcl2M5Mtp3PEi1HRC8 qGwwIVWra284INHd oSthgZptcDWdj73uDCKb dMYlEzMum943OXUvybK8 MLvmyLnhMes6sTFyyAMt n5iwqOz3PnOfNYLc AdgVLFSkqOgzg6WgJdtT LObyg7hubpZpjOztERS2 v7KrWDeiXOHgWEB6PqTq IC8+CgkJPGNvbCB2 JSzcI251KxSkcBRsb4nr sQp0EhI2LKEcGt9KDTky U40aU8KbjDP+Mpg7dDQk ZHk+CgkJPHRyPgoJ YEr1wIBvr8J9rXB9FmEw luHiv9m5OIhgGXK3SdH6 CZK5oGFvdQ0kdUzqvslm zI1lOxS+CgkJCTxk hIFjZ2qgb1X8AfZut9Dx lWfwyoJfCXXfSkLzf6le FtzkUXJeoF2gSAW8BoZw FGKpjTOpEQIwRP6s jwRytGPfYKLnVgGnU3Cj p07bv7RiTSFIT7wZFmZt HEG1CK3xXqQgKP9iAdHj VsRdCYvoOZJ8VQDh TZNjRQ07LZCdCWXxFIUb OKI1MYUwGTFwg7U6zMY5 TaIjHGPqwok3VLFuiEti PjxzcGFuIGNsYXNz VPTtWAElD4Rmw79kwFKi yOC2Mq53q2SyjsLfqDti DW2lLn4xiU29LEtonAB3 GANssND0GPQpsTNy QMOkz5JilUyzcxevpC8b EZQocZ8dDnZ+A0xbFGYt H98muQvfwS75GE7cySVk Hqlau9Aozl3MCIzB RFSkcoIyjTHalb4tFNGp cOOjw676SW35CcShOOtd w620MB24wTreMO2rRZNT F5EDWP4VGGKBKdSw RZwtERTtmfUrM4Q3cIrn XVMTD2I1ImD5VQ5UOmRy AWKCQ6QhHuGnWr3AC4EE CKaBSnR6GfUsTRyz PSJfNWEzYmVlZDMtMGM2 Hl80GPB1MMp0XtLwUIVh UOPnMOIqVpJjOr2WPDuY NBFdpoVkaCSkcb1a FYNpdQHjg483YE23zIZb uKKlEJGhhH63UYOqXBVg JMQ9Z65uuDMonTJ6nOA6 IlBBVENBUkVfTUVB SjSsSBB8ZW66rXY5jZS5 ZxA4KMX3UYT9TViyJZeb PSJfMzMyMmFkZTQtNzgy BQ45ZDT2YJpaLHXv OGIxYmMyYzIzNzUyIiB4 jVvecjlcVA2eDIiaHB4q C3YrU1LsNA73XCYlx22g SsDvsUwadjO2uGHx UCM0moqdFMKiG1IlJK8l aXY+DuyAOWhfBXa6SvvP ZJl6E2Xths7VGmzGXCho qCHeM1njm1E2LbSq u5WtjWfrwsVsJBToBrBv g3ytBzzxRZPvdK5oUGN1 GtBbNOClhMGdNKAeEG4e dmFibGUiIGRkOnNl T2Mmi84wc3JbEPXZF8mM GnWwABE8JF8sReFaOA6f R3RcSDGoGBOjQAzmQUWj JCusKc82LolmFMAv WhH2Z6A2SFmaUAJar8C0 aWX5OpRfGWOnvfe4CWXb eDsiPjxzcGFuIGNsYXNz BZXjPITqQ2Tdr68a iHPpzOF8Ul59r7CfjcKx gOkzMQ0bIs9nvJ77SOnv eFZ9ZMFhzBZ6BGTnlUCl XYMav6XhjMgekbmu pA6gKNPklR5tEsA+SFBJ YZU1RDSrVT0bhYJtTknq g7Mdzl5VCcpTAHjhsIPb K0uqu1V1RsDeDO2s F84ogMZtdKUtZRQ6G91u xUUrqUM1lCY0IxTUBFZT XzUnVHWMTiGzWHS2tbUg NDLnooUfxJPdEH4b ZNh8HQFHLLXaIQA1GG76 QjRDLUFGRDItNkFEQkMy VwX2RPrgYfWpPO2eG8Qy NzZlNjIxLTNmMjAt NNH7FY27X3Y1OYJkPhY0 ZgI2WmSmXLZ+CgkJCTxk zWBjA9txl7I6UxCcWD0t V01znPFooCv0CD6k YYTvXQ5tovSljZUfSNPn QhR1usYyc9R0gW2zy6T8 rSI5IvZliM7jlYkghGDb DPY3S28ziICltEB2 xEK5DbMRYEAMPwYdFQIE HrJpHQU6NN13oHF8qKI6 LqGuoMH2Nx45AiJbDVTz DS6yJaLbBPV5GyKw NCN1WI96Zyi3WFC7YYTn VCTtEHmbvB1rExToQAOA aC3jsVqcYF3fqK2ebsLp dGlvbiI+WN4mfBL+ LcsVCZk5MVs8VQNoHETk PSJkZGVtcmNvbnRlbnRp oWObAVDgxhOvp1EdSvvv TjLmMKkgzB7vsX5h wZqqO1R0nIhxXCJ7k3Hz cmlnaHQiIGRkOmNvbnRl pkK9vKKxANGNWXZKEDWZ Q22DVHXmKGGmBqLi wBp4kGujAUAgPNftNURe EeB8YAFaFASxKTLqVA33 FqFcQCCbOJdcZkE6I3K2 AOMhREDbFxT7aEyk dngwIR0eKQwgWZ2fE9Oe U5FlSF76NCXdg10eOgzl KXh2YupWQJcDWJJccmUd gPVdnf3lTPRboXWp q355HI68bMAkvJMuGVIg tT11RZYzVBAnXCK4DtGv IgpfHLGkbglzjYrdLU5x xA2cFQOnF1j1OaVn CPahk765AH80xFblQT0n VXNOG5AQTP1UCZTWWxGv PJohicXbrYhqSI9lOqUw WO6kTlU8KoKmWsV3 FYJ6YGPyEGR2Lv5aRVPd SNRoFxHjRKV2BDH0GQPl zT3npcR7IXK7JoW2hmAz aJUDe4O8yDRkjPR1 sO3nKc30R4Ypuj3WSigP VYjbmFGqF4yfw2T0NtPz FM6hC17ajOJxyRx1HK6h UOJiKR0gkmJqeWEl DMOmNrK7ijBpo4G9pO2y o1B8mMX2JnEtbY1fcCyp nMEjJXS0X49mhKJztHR1 kGL9KjGLLYNJRxVd AWBQXyAiVPH7JX29uOZ1 zFR7ReFesDC2Dy7vYmKk MfhuTM3rYaIxPJI9ZoOx VVRiXX4cSJSvOKG7 R0F4YORoCAhifS7sSuNt KELNwY9yqTolCC2phU5c bnRhdGlvbiI+DC9oaHW+ ZlmNTRo6PZy1XFDg YXNzPSJkZGVtcmNvbnRl phOidCTqASDvhqIaz1Uz JasnZgBlFQqwgX8pjF1b jJmqP0D8cYttUND3 l9OxkbhwkNCeVWYfZwAl wnGgjtT2dOQlLMATKOYT OBRUJ23TXKCkRTApVcLd yNg7uSlmMQXdXRlt NRZnU6QeGFPjJFgaGUjb Qq15FZP9ZHV2KmNdLQa2 OFEaLXV8RBo3QvZ8lEij ifviEC3mEElfSA4z V7ObP4EoAD17MWRck85u BhafORp6TixODXrMHGAg hfTziKEwok3iGRUhyPQx l445CP21dRMwjQZt ZHOztW91DYXbKFLuGPH4 YnRuZmxvYXRpbmdzdHls KW5fhU7pRXHnR9l7GjRp OPxek181VF57lJap LW6wHGYLY1LNKO3DCREB XiWvLQrhabSupCrcQI4i KbLgGM7hGwCeBlRbIDNk YYTkLWIrHBevCK0f UQBeNPM1V3QzXKO4Jrdh UDPfdE4onfD9UOQ5CoJ1 oyPexAEMo4C9zHMohUD9 bA2rEc52T7Vaqu7N FvtZUAjdwLLmZ9hqi5J7 BtYiDQ0rX22mcFBwtIh3 XG8mNHZrYZ1afnVamJNu ZDOzKyT9qaPbt9O0 kT0bn7Q3oRI0QvIcpL1n rRldaVUxGPN4W83eqFYc oZD1mSW2OmADYYIRQmUg MRPLHmJkOMI8JH97 dGX8tSZ9WvRmpOE3Zp1w FTY5ONG4IO62QvR3JQT9 AUDaBpMnQI8xOwDmQpMx AGRoGxLzTOkbdR8w GgHlFUNVjN5dhQrdYO2z fG5argOgkTrplrU+PC9k aXY+IkfQHUy8OBy1QPTf YXNzPSJkZGVtcmNv bnRlbnRpdGVtIGRkcmVt f8TnZnbvSjWdKOejgQ6h rF8rdDxeO5C5lDxoRUU2 j4TwonkseKDoWYYj WuQbmrGactR0fAWaCKRV ALNDMTROK22BYPKsLBPi QxPltYs6rUmuPSHzTIsa EMWjKyJ3VQp9VtUp LVQiXs63MMUqYYt5SQTo Dsn7ZDCaHIOqVrE3PwA9 sUgzaeobTI4nWBazFC1n M5CjX2KsGD60ISVv f12sGsbcALq9EtjQTClT HBSowuIabXSjhi5bXKZm wGSmk810ER47jIKeeFYv ERKpxT19HPXbZCDy CLP9HuOmEtcwVEVhozvl dLrjTB3dfO7oMXIeQ1x8 IwQlZDjfo704UG24nZis YC3tCYPKP6CQLY7M RUFTIiBkZDplbnRpdHlp QM7cMvSpKF5pLiicVUab ISBaGMF2NPWlVSDfOA17 ZDIzLWQyNjdkODg0 LQM4BhDniJ3odgI3AEV5 WzL0kjKgmSGGz9V5qXLz iXW7nE7eFk54Q9Rrqc6Q YxxOCIgnwJGpB8ru i7Z0ZgKnSY7kV86lmDGw xQw4KP3rRJXwKH0ijqOt uJUbFKLqKhX0jwMxp4V4 gY6uj7H3hVN6ZkZp c (more content not included)... Normal [facility] Comment on above: Result Comment: Elec tronically Signed By: MIRIAM BRONSON, Tan Gross\Date and Time Signed: 04/10/21 15:28 EDT XR knee RT 2Von 04-09-2021 XR knee RT 2V [facility] [employer] Other XR knee RT 2V [facility] Main [facility] [employer] Other XR knee RT 2V [address] [place] [address] [employer] Other XR [place] 2[place] [address] [facility] [employer] Other XR knee RT 2V XRay Report [facility] [employer] Other XR knee RT 2V Signed [facility] [employer] Other XR knee RT 2V Patient: Katt Rahman MR#: [id number] [facility] [employer] Other XR knee RT 2V : 1960 Acct:[id number] [facility] [employer] Other XR knee RT 2V Age/Sex: 60 / F ADM Date: 04/09/21 [facility] [employer] Other XR knee RT 2V Loc: SOXD Room: Type: [facility] [employer] Other XR knee RT 2V Attending Dr: Milagros Hall NP-C [facility] [employer] Other XR knee RT 2V Ordering Provider: Yehuda Camara MD [facility] [employer] Other XR knee RT 2V Date of Service: 04/09/21 [facility] Other XR knee RT 2V XR/XR knee RT 2V: History of total right knee replacement [facility] Other XR knee RT 2V Copies to: Yehuda Camara MD [facility] Other XR knee RT 2V BUNNY Tinsley-C [facility] Other XR knee RT 2V 2 views RIGHT knee plain film [facility] Other XR knee RT 2V COMPARISON:05/10/20 No rt [employer] Other XR knee RT 2V HISTORY:Status post RIGHT total knee arthroplasty [facility] Other XR knee RT 2V No hardware failure or loosening identified. No fracture or dislocation. Small suprapatellar [facility] Other XR knee RT 2V effusion. No soft tissue abnormality. [facility] Other XR knee RT 2V XR/XR knee RT 2V [facility] Other XR knee RT 2V IMPRESSION:Uncomplic ated RIGHT knee arthroplasty. [facility] Other XR knee RT 2V Impression dictated by: Edilberto Castillo M.D.04/09/2021 11:51 AM [facility] Other XR knee RT 2V Dictation Location: [place] [address] [facility] Other XR knee RT 2V Transcribed By: PWS 04/09/21 [facility] Other XR knee RT 2V Dictated By: Edilberto Castillo DO 04/09/21 1149 [facility] Other XR knee RT 2V Signed By: [facility] Other XR knee RT 2V 04/09/21 [facility] [employer] Other Operative Reporton Operative Report [id number] #1.00CD:127 Normal [facility] Consent for Procedure/Surger yon 01-25-2021 Consent for Procedure/Surgery [id number] #1.00CD:127 Normal [facility] Provider Letter FTon 01-11 Provider Letter [facility] January 11, 2021 Rafa Verdin, [address] [place] [address] Re: KATT RAHMAN Date of : 1960 Thank you for your referral of Katt Rahman who was seen on consultation on January 10, 2021, for possible gastric ulcer. An EGD is planned for further evaluation. I have enclosed my consultation note for your review. I will be happy to follow Katt. Sincerely, Tan Hutchison MD General Surgery [facility] Ambulatory Clinical Summaryo n 01-10-2021 Ambulatory Clinical Summary {[id number]}CD:[id number] [facility] RAD - CT Reporton 01-09-[address] RAD - CT Report [id number] #1.00CD:127 [facility] RAD - Ultrasound Reporton RAD - Ultrasound Report [id number] #1.00CD:127 [facility] Physician Referralon 021 Physician Referral [id number] #1.00CD:127 [facility] Physician Referral [id number] #1.00CD:127 [facility] Consent for COVID Vaccineon 10-28-2020 SARS-CoV-2 (COVID-19) RNA VIVIANA+probe Ql (Unsp spec) [id number] 8#1.00CD:127 [facility] Coding Summary.on 09-26-2020 Coding Summary. CODING DATE: 09/26/2020 FINAL [place] STATUS: PAYOR: [facility] [place] APC DESCRIPTION [employer] - Level 1B ($11-$20) ADMIT DX: REASON FOR VISIT DX: Z23 Encounter for immunization FINAL DX: PRINCIPAL: Z23 Encounter for immunization SECONDARY: PYMT PROC APC STAT DESCRIPTION DOCTOR NAME DATE NOTE: The code number assigned matches the documented diagnosis and / or procedure in the patient's chart. However, the narrative phrase printed from the coding software may appear abbreviated, or result in slightly different terminology. Coded By: Renetta Maurice Date Saved: 09/26/2020 02:57 pm [facility] Consent for COVID Vaccineon 09-26-2020 SARS-CoV-2 (COVID-19) RNA VIVIANA+probe Ql (Unsp spec) [id number] 8#1.00CD:127 [facility] Consent for Treatmenton 09-04 Consent for Treatment [id number] 8#1.00CD:127 [facility] Vital Signs Date Time Vital Sign Value Performing Clinician Facility 03-04-2023 11:26-0400 Body height 165.1 cm Cynthia Ran CHILDR[employer]'S SERVICE WORKER-REHEATER Work Phone: [facility] 03-04-2023 11:26-0400 Body mass index (BMI) [Ratio] 32.95 kg/m2 Cynthia Ran CHILDREN'S SERVICE WORKER-REHEATER Work Phone: [facility] 03-04-2023 11:26-0400 Body weight 89.81 kg Cynthia Ran CHILDREN'S SERVICE WORKER-REHEATER Work Phone: [facility] [employer] [facility] 06-25-2022 11:34-0500 Body height 165.1 cm Kee Serrato MD Work Phone: [facility] 06-25-2022 11:34-0500 Body mass index (BMI) [Ratio] 33.08 kg/m2 Kee Serrato MD Work Phone: [facility] [employer] [facility] 06-25-2022 11:34-0500 Body temperature 97.2 [degF] Kee Serrato MD Work Phone: [facility] 06-25-2022 11:34-0500 Body weight 90.17 kg Kee Serrato MD Work Phone: [facility] [employer] [facility] 04-16-2022 13:38-0400 Body height 165.1 cm Cynthia Ran CHILDREN'S SERVICE WORKER-REHEATER Work Phone: [facility] [employer] [facility] 04-16-2022 13:38-0400 Body mass index (BMI) [Ratio] 33.12 kg/m2 Cynthia Durant CHILDREN'S SERVICE WORKER-REHEATER Work Phone: [facility] 04-16-2022 13:38-0400 Body temperature 97.11 [degF] Cynthia Durant APRN-REHEATER Work Phone: [facility] 04-16-2022 13:38-0400 Body weight 90.27 kg Cynthia Durant CHILDREN'S SERVICE WORKER-REHEATER Work Phone: [facility] 03-26-2022 13:25-0400 Body height 165.1 cm Cynthia Durant CHILDREN'S SERVICE WORKER-REHEATER Work Phone: [facility] 03-26-2022 13:25-0400 Body mass index (BMI) [Ratio] 33.12 kg/m2 Cynthia Durant APRN-REHEATER Work Phone: [facility] 03-26-2022 13:25-0400 Body temperature 97.5 [degF] Cynthia Durant APRN-REHEATER Work Phone: [facility] 03-26-2022 13:25-0400 Body weight 90.27 kg Cynthia Durant APRN-REHEATER Work Phone: [facility] 01-16-2022 13:12-0400 Body height 165.1 cm Kee Serrato MD Work Phone: [facility] 01-16-2022 13:12-0400 Body mass index (BMI) [Ratio] 33.25 kg/m2 Kee Serrato MD Work Phone: [facility] 01-16-2022 13:12-0400 Body temperature 97.59 [degF] Kee Serrato MD Work Phone: [facility] 01-16-2022 13:12-0400 Body weight 90.63 kg Kee Serrato MD Work Phone: [facility] 12-06-2021 12:52-0400 Body height 165.1 cm Rafael Hernandez DO Work Phone: [facility] 12-06-2021 12:52-0400 Body mass index (BMI) [Ratio] 34.35 kg/m2 Rafael Riehm DO Work Phone: [phone] [place] [address] 12-06-2021 12:52-0400 Body temperature 97.9 [degF] Rafael Riehm DO Work Phone: 0(143)[phone] [place] [address] 12-06-2021 12:52-0400 Body weight 93.62 kg Rafael Riehm DO Work Phone: 7(830)[phone] [place] [address] 10-25-2021 11:17-0400 Body height 165.1 cm Rafael Riehm DO Work Phone: 6(173)[phone] [place] [address] 10-25-2021 11:17-0400 Body mass index (BMI) [Ratio] 33.38 kg/m2 Rafael Riehm DO Work Phone: 4(184)[phone] [place] [address] 10-25-2021 11:17-0400 Body temperature 97.7 [degF] Rafael Riehm DO Work Phone: 6(805)[phone] [place] [address] 10-25-2021 11:17-0400 Body weight 90.99 kg Rafael Marym DO Work Phone: [phone] [place] [address] 06-05-2021 16:15-0500 Body height 162.56 cm Jose Otsego II Other [facility] Other 06-05-2021 16:15-0500 Body mass index (BMI) [Ratio] 32.78 kg/m2 Jose Jaiden II Other [facility] Other 06-05-2021 16:15-0500 Body weight 86.64 kg Jose Otsego II Other [facility] Other 04-09-2021 09:30-0400 Body height 162.56 cm Yehuda Camara Other [facility] Other 04-09-2021 09:30-0400 Body mass index (BMI) [Ratio] 32.61 kg/m2 Yehuda Camara Other [facility] [employer] Other 04-09-2021 09:30-0400 Body weight 86.18 kg Yehuda Camara Other [facility] Other Encounters Encounter Date Encounter Type Care Provider Facility Start: 03-04-2023 ambulatory SELF SELF [facility] Start: 03-04-2023 End: 03-04-2023 Office outpatient visit 15 minutes Cynthia Durant CHILDREN'S SERVICE WORKER-REHEATER Work Phone: [facility] Comment on above: Hx of total knee art hroplasty, right (Primary Dx) Start: 03-04-2023 End: 03-04-2023 Subsequent hospital visit by physician Cynthia Durant CHILDREN'S SERVICE WORKER-REHEATER Work Phone: [facility] Start: 11-01-2022 End: 11-01-2022 ambulatory BRIANNA ROMERO Facility:[facility] Start: 06-25-2022 ambulatory KEE SERRATO [facility] Start: 06-25-2022 End: 06-25-2022 Office outpatient visit 15 minutes Kee Serrato MD Work Phone: [facility] Comment on above: Hx of total knee art hroplasty, right (Primary Dx) Start: 06-25-2022 End: 06-25-2022 Subsequent hospital visit by physician Kee Serrato MD Work Phone: [facility] Start: 05-23-2022 End: 05-23-2022 ambulatory MD Rafa Verdin Work Phone: [facility] Work Phone: Start: 05-23-2022 End: 05-23-2022 Discharged Recurring MD Rafa Verdin Work Phone: [facility] [place] Start: 04-24-2022 End: 04-25-[address] DAWN MUNOZ . Facility:[facility] Start: 04-16-2022 ambulatory CYNTHIA RAN [facility] Start: 04-16-2022 End: 04-16-2022 Postop follow up visit related to original px Cynthia Durant ALICIAREHEATER Work Phone: [facility] Comment on above: Hx of total knee art hroplasty, right (Primary Dx) Start: 03-26-2022 ambulatory SELF SELF [facility] Start: 03-26-2022 End: 03-26-2022 Postop follow up visit related to original px Cynthia Durant LIGIA-REHEATER Work Phone: [facility] Comment on above: Hx of total knee art hroplasty, right (Primary Dx) Start: 03-26-2022 End: 03-26-2022 Subsequent hospital visit by physician Cynthia GUTIERREZ Work Phone: [facility] Start: 03-11-2022 End: 03-11-2022 ambulatory KEE SERRATO Facility: Start: 02-11-2022 End: 02-12-[address] DAWN MUNOZ . Facility: Start: 02-06-2022 End: 02-06-[address] DAWN MUNOZ . Facility: Start: 01-16-2022 End: 01-16-2022 Office outpatient visit 40 minutes Kee Serrato MD Work Phone: [facility] Comment on above: Right knee pain, uns pecified chronicity (Primary Dx) Start: 01-16-2022 End: 01-16-2022 Office outpatient visit 25 minutes Rafael Hernandez DO Work Phone: [facility] Comment on above: Right hip pain (Prim rosana Dx); Primary localized osteoarthritis of right hip Start: 12-12-2021 End: 12-12-2021 ambulatory Rafael Hernandez Facility:[facility] Start: 12-06-2021 End: 12-06-2021 Office outpatient visit 25 minutes Rafael Hernandez DO Work Phone: [facility] Comment on above: Right hip pain (Prim rosana Dx); 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 Facili ty:[facility] Start: 11-13-2021 End: 11-14-[address] RAFA VERDIN . Facility: Start: 10-25-2021 End: 10-25-2021 Office outpatient visit 25 minutes Rafael Hernandez DO Work Phone: [facility] Comment on above: Primary localized os teoarthritis of right hip (Primary Dx) Start: 10-10-2021 End: 10-10-2021 Office outpatient new 30 minutes Kee Serrato MD Work Phone: [facility] Comment on above: Primary localized os teoarthritis of right hip (Primary Dx); Pain in prosthetic joint, initial encounter Start: 09-06-2021 End: 09-06-2021 ambulatory Yehuda Camara Facility:[facility] Start: 08-13-2021 End: 08-13-2021 ambulatory Jose Jaiden II Other [facility] Other Start: 08-13-2021 Telephone encounter Jose Otsego II [facility] Start: 08-12-2021 End: 08-12-2021 ambulatory Jose Otsego II Other [facility] Other Start: 08-12-2021 Telephone encounter Jose Otsego II [facility] Start: 07-30-2021 End: 07-30-2021 ambulatory Jose Otsego II Other [facility] Other Start: 07-30-2021 Telephone encounter Jose Otsego II [facility] Start: 06-24-2021 End: 06-24-2021 ambulatory Jose Otsego II Other [facility] Other Start: 06-24-2021 Telephone encounter Jose Otsego II [facility] Start: 06-19-2021 (Procedure) Curtis Stephenson [facility] Start: 06-19-2021 End: 06-19-2021 ambulatory Rick Stephenson Other [facility] Other Start: 06-05-2021 End: 06-05-2021 ambulatory Jose Hwang II Other [facility] Other Start: 06-05-2021 Office outpatient ne w 45 minutes Jose Hwang II [facility] Start: 05-07-2021 End: 05-07-2021 ambulatory Yehuda Camara Other [facility] Other Start: 05-07-2021 Office outpatient vi sit 15 minutes Yehuda Camara [facility] Start: 04-09-2021 Office outpatient vi sit 15 minutes Yehuda Camaar [facility] [facility] Start: 09-07-2019 End: 09-07-2019 Patient encounter procedure Rafa Hoy [facility] Start: 05-02-2019 End: 05-03-2019 Admission to day surgery [facility] -Surgery [facility] Start: 12-02-2018 End: 12-02-2018 Discharged Recurring [facility] -Physical Therapy [facility] [place] Procedures Date Procedure Procedure Detail Performing Clinician Start: 01-16-2022 Arthrocentesis aspir &/inj major jt/bursa w/us Rafael Hernandez DO Work Phone: Start: 10-25-2021 Arthrocentesis aspir &/inj major jt/bursa w/us Rafael Hernandezm DO Work Phone: Start: 09-07-2019 X-ray of left knee Fernando las Hoy History of operative procedure on knee Jose Marnate CUETO Other Plan of Treatment Date Care Activity Detail Author Start: 03-06-2023 Influenza vaccination INFLUENZA VACC INE (#1) [facility] Start: 03-04-2023 End: 03-04-2023 Patient encounter procedure 03/04/2023 Office Visit Orthopaedics Cynthia Durant, CHILDREN'S SERVICE WORKER-REHEATER [address] [id number] [facility] Start: 06-25-2022 End: 06-25-2022 Patient encounter procedure 06/25/2022 Office Visit Orthopaedics Kee Serrato MD [address] [place] [address], [place] [address] [facility] Start: 04-24-2022 End: 04-24-2022 Patient encounter procedure 04/24/2022 Office Visit Orthopaedics Rafael Hernandez, DO [address] [place] [address], [place] [address] [facility] Start: 04-16-2022 End: 04-16-2022 Patient encounter procedure 04/16/2022 Office Visit Orthopaedics Cynthia Durant APRN-BLAYNE [address] [place] [address], [place] [address] [facility] Start: 03-06-2022 Influenza vaccination INFLUENZA VACC INE (#1) [facility] Start: 03-04-2022 End: 03-04-2022 Evaluation and management of inpatient [facility] Comment on above: 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, initial encounter REVISION ARTHROPLAST Y KNEE - right Start: 03-04-2022 End: 03-04-2022 REVISION ARTHROPLASTY KNEE REVISION ARTHROPLASTY KNEE 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, initial encounter 03/04/2022 10:00 AM EDT [facility] Start: 02-13-2022 End: 02-13-2022 ambulatory 02/13/2022 Pre-Operative Nurse Assessment Internal Medicine [facility] Pre Admission Start: 02-06-2022 End: 02-06-2022 ambulatory 02/06/2022 Pre-Operative Nurse Assessment Internal Medicine [facility] Pre Admission Start: 01-17-2022 End: 01-17-2022 Patient encounter procedure 01/17/2022 Office Visit Orthopaedics Rafael Hernandez, DO [address] [place] [address], [place] [address] [facility] Start: 12-06-2021 End: 12-06-2022 NM Bone 3 Phase Views NUC 3 PHASE LIMITED BONE SCAN Imaging Routine 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, subsequent encounter Expected: 12/06/2021, Expires: 12/06/2022 [facility] Comment on above: Expected: 12/06/2021 , Expires: 12/06/2022 Start: 12-06-2021 End: 12-06-2021 Patient encounter procedure 12/06/2021 Office Visit Orthopaedics Rafael Hernandez, DO [address] [place] [address] [facility] Start: 10-30-2021 COVID-19 VACCINE (4 - Booster for Pfizer series) COVID-19 VACCINE (4 - Booster for Pfizer series) [facility] Start: 08-26-2021 COVID-19 VACCINE (4 - Booster for Pfizer series) COVID-19 VACCINE (4 - Booster for Pfizer series) [facility] Start: 08-26-2021 COVID-19 VACCINE (4 - Pfizer series) COVID-19 VACCINE (4 - Pfizer series) [facility] Start: 2008 Zoster vaccine hzv l ruddy for subcutaneous use ZOSTER (SHINGLES) VACCINE (1 of 2) [facility] Start: 12-10-2003 Colonoscopy COLORECTAL CAN CER SCREENING DISCUSSION [facility] Start: 12-10-2003 Screening for malign ant neoplasm of colon COLORECTAL CANCER SCREENING DISCUSSION [facility] Start: 1998 Fasting lipid profile LIPID SCREENIN G [facility] Start: 1998 Lipid panel LIPID SCREENING [facility] Start: 1998 Screening for malign ant neoplasm of breast MAMMOGRAM SCREENING DISCUSSION [facility] Start: 1998 Screening mammography MAMMOGRA M SCREENING DISCUSSION [facility] Start: 12-10-1979 Screening for malign ant neoplasm of cervix CERVICAL CANCER SCREENING DISCUSSION [facility] Start: 1977 Third diphtheria, tetanus and acellular pertussis (DTaP) vaccination TDAP (ADULT) [facility] Start: 1976 Tetanus vaccination TET[facility]US [facility] Start: 06-06-1974 HIV screening HIV SCREENING DISCUSSION [facility] Start: 1960 Hepatitis B vaccination HEP B VACCINE (1 of 3 - 3-dose series) [facility] Start: 1960 Hepatitis C antibody , confirmatory test HEPATITIS C VIRUS SCREENING [facility] Start: 1958 Hepatitis C screening HEPATITI S C VIRUS SCREENING [facility] Start: 1960 Tetanus vaccination TETANUS [facility] Radiography for bone length studies XR BONE LENGTH STUDY Imaging Routine Pain in prosthetic joint, initial encounter 10/10/2021 12:54 PM EDT [facility] Radiography for bone length studies XR BONE LENGTH STUDY Imaging Routine Hx of total knee arthroplasty, right 06/25/2022 10:52 AM EST [facility] Work Phone: XR Knee - left 3 Views XR KNEE L EFT 3 VIEWS Imaging Routine Pain in prosthetic joint, initial encounter 10/10/2021 12:54 PM EDT [facility] XR Knee - right 3 Views XR KNEE RIGHT 3 VIEWS Imaging Routine Pain in prosthetic joint, initial encounter 10/10/2021 12:54 PM EDT [facility] [employer] [facility] XR Knee - right 3 Views XR KNEE RIGHT 3 VIEWS Imaging Routine Hx of total knee arthroplasty, right 03/26/2022 1:03 PM EDT [facility] XR Knee - right 3 Views XR KNEE RIGHT 3 VIEWS Imaging Routine Hx of total knee arthroplasty, right 04/16/2022 1:26 PM EDT [facility] XR Knee - right 3 Views XR KNEE RIGHT 3 VIEWS Imaging Routine Hx of total knee arthroplasty, right 06/25/2022 10:52 AM EST [facility] XR Knee - right 3 Views XR KNEE RIGHT 3 VIEWS Imaging Routine Hx of total knee arthroplasty, right 03/04/2023 10:58 AM EDT [facility] Immunizations Immunization Date Immunization Notes Care Provider [facility] 04-24-2022 influenza virus vaccine, unspecified formulation Cynthia Durant APRN-REHEATER Work Phone: [facility] 05-24-2021 influenza virus vaccine, unspecified formulation Rafael Hernandez DO Work Phone: [facility] 12-16-2018 Kenalog -40 mg Yehuda Camara Other [facility] Other 09-22-2018 Kenalog -40 mg Yehuda Camara Other [facility] Other 05-17-2018 Euflexxa Yehuda Camara Other [facility] Other 05-10-2018 Euflexxa Yehuda Camara Other [facility] Other 05-03-2018 Euflexxa Yehuda Camara Other [facility] Other 04-13-2018 Kenalog -40 mg Yehuda Camara Other [facility] Other 11-03-2017 Kenalog -40 mg Yehuda Camara Other [facility] Other 02-24-2017 Kenalog -40 mg Yehuda Camara Other [facility] Other 12-11-2016 Kenalog -40 mg Yehuda Camara Other [facility] Other Payers Date Payer Category Payer Self-pay [id number] 2002 Unknown [id number] 1959 Unknown [id number] 1959 Unknown [id number] 1959 Unknown [id number] 1958 Unknown [id number] 2.16.84 [id number] 1958 Unknown [id number] 2.16.84 0.1.784434.3.579.2.593 1958 Unknown [id number] 2.16.84 0.1.713252.3.579.2.593 1958 Unknown [id number] 2.16.84 0.1.799151.3.579.2.593 1958 Unknown [id number] 2.16.84 0.1.119388.3.579.2.593 1958 Unknown [id number] 2.16.84 0.1.713094.3.579.2.593 1958 Unknown [id number] 2.16.84 0.1.994656.3.579.2.593 1958 Unknown [id number] 2.16.8 40.1.431942.3.579.2.983 1958 Unknown [id number] 2.16.8 40.1.997477.3.579.2.983 1958 Unknown [id number] 2.16.8 40.1.777901.3.579.2.983 1958 Unknown [id number] 2.16.8 40.1.707948.3.579.2.983 1958 Unknown [id number] 2.16.8 40.1.234709.3.579.2.983 1958 Unknown [id number] 2.16.8 40.1.410581.3.579.2.983 1958 Unknown [id number] 2.16.8 40.1.582820.3.579.2.983 1958 Unknown [id number] 2.16.8 40.1.953809.3.579.2.983 Unknown [id number] 2.16.8 40.1.778760.3.579.2.531 Unknown [id number] 2.16.8 40.1.605537.3.579.2.531 Unknown [id number] 2.16.8 [id number] Social History Date Type Detail Facility Start: 05-02-2019 End: 10-10-2021 Tobacco smoking status NHIS Never smoked tobacco (finding) [facility] Start: 1960 Sex Assigned At Female F [facility] Start: 10-10-2021 Tobacco use and exposure Smokeless tobacco non-user [facility] Start: 10-10-2021 End: 03-04-2023 Alcohol intake Ex-drinker (finding) [facility] Start: 1960 Sex Assigned At Not on file [facility] [employer] Start: 03-04-2023 Sex Assigned At N [facility] Other Start: 02-22-2022 End: 03-04-2022 Exposure to SARS-CoV-2 (event) Not sure [employer] Start: 03-04-2023 History of Social function [employer] [facility] Procedure Code Equipment Code Equipment Origin al Text Equipment Identifier Dates Arthroplasty, knee, total, minimally invasive FDA Start: 09-27-2018 Arthroplasty, knee, total, minimally invasive ART SURF LT 11MM C-D 6-9 VE FDA Start: 09-27-2018 Arthroplasty, knee, total, minimally invasive ART SURF LT 11MM C-D 6-9 VE FDA Start: 09-27-2018 Arthroplasty, knee, total, minimally invasive ART SURF LT 11MM C-D 6-9 VE FDA Start: 09-27-2018 Arthroplasty, knee, total, minimally invasive ART SURF LT 11MM C-D 6-9 VE FDA Start: 09-27-2018 Arthroplasty, knee, total, minimally invasive ART SURF LT 11MM C-D 6-9 VE FDA Start: 09-27-2018 Arthroplasty, knee, total, minimally invasive Orthopaedic cement, non-medicated [id number] FDA Start: 05-02-2019 Arthroplasty, knee, total, minimally invasive ART SURF LT 11MM C-D 6-9 VE FDA Start: 09-27-2018 Arthroplasty, knee, total, minimally invasive CEMENT BONE 1X40 RADIOPAQUE FDA Start: 09-27-2018 Arthroplasty, knee, total, minimally invasive CEMENT BONE 1X40 RADIOPAQUE FDA Start: 09-27-2018 Arthroplasty, knee, total, minimally invasive FEMUR PERSONA NARROW LEFT 8 FDA Start: 09-27-2018 Arthroplasty, knee, total, minimally invasive PATELLA PERSONA 32MM VIVACIT-E FDA Start: 09-27-2018 Arthroplasty, knee, total, minimally invasive TIBIA PERSONA LEFT SIZE C FDA Start: 09-27-2018 Arthroplasty, knee, total, minimally invasive Uncoated knee femur prosthesis ()[id number] FDA Start: 05-02-2019 Arthroplasty, knee, total, minimally invasive Tibial insert ()[id number] FDA Start: 05-02-2019 Arthroplasty, knee, total, minimally invasive Polyethylene patella prosthesis ()[id number] FDA Start: 05-02-2019 Arthroplasty, knee, total, minimally invasive Uncoated knee tibia prosthesis, metallic ()[id number] FDA Start: 05-02-2019 Rotating Platfor m Insert [id number] Start: 03-04-2022 Goals Date Patient Goal Desired Activity /State Clinical Notes 09-03-2018 to 03-04-2023 Bel Rothman - 03/04/2023 11:00 AM Elvis Durant APRN-[facility] - 03/04/2023 11:00 AM Chantelle Rosario LPN - 06/25/2022 11:10 AM Brenda Serrato MD - 06/25/2022 11:10 AM EST Note Date & Type Note Facility 03-04-2023 History of Presen t illness Narrative Ortho Nurse - Established Patient Intake Room#: 4 Date: 03/04/2023 11:27 AM Patient: Katt Rahman MR#: [id number] : 1960 Age: 62 y.o. 1yr R TKA Pt stated she is doing better than what is was, but is having back issues and her hip is bothering her. Pt has pain and stiffness at times if sitting to long 4/10 on the pain scale. Referring Physician: Self, Self Insurance: Payor: JESSENIA EXCHANGE / Plan: [facility] / Product Type: *No Product type* / Chief Complaint Patient presents with Right Knee - Follow-up Visit Vitals Ht 1.651 m (5' 5 ) Wt 89.8 kg (198 lb) BMI 32.95 kg/m Pain Recent Labs Lab Results Component Value Date CRP 14.7 (H) 12/06/2021 Lab Results Component Value Date SEDRATE 12 12/06/2021 Lab Results Component Value Date WBC 10.2 03/05/2022 HGB 10.2 (L) 03/05/2022 HCT 30.0 (L) 03/05/2022 PLATELET 213 03/05/2022 MCV 91.2 03/05/2022 History Past Medical History: Diagnosis Date Arthritis Diabetes mellitus Essential hypertension, benign GERD (gastroesophageal reflux disease) Past Surgical History: Procedure Laterality Date REVISION ARTHROPLASTY KNEE Right 03/04/2022 Laterality: Right; Surgeon: Kee Serrato MD; Location: [facility] KNEE REPLACEMENT Right 05/02/2019 Dr. Laly Camara KNEE REPLACEMENT Left 09/27/2018 Dr. Camara Family History: Her family history is not on file. Social History: Her reports that she has never smoked. She has never used smokeless tobacco. She reports that she does not currently use alcohol. She reports that she does not use drugs. Outpatient Medications Prior to Visit Medication Sig Dispense Refill acetaminophen 325 MG tablet Take 2 tablets by mouth every 4 hours as needed for Mild Pain. 50 tablet 1 amoxicillin 500 MG capsule Prior to dental work. aspirin EC [address] Take 1 table twice a day for 30days. This medication is for blood clot prevention. (Patient not taking: Reported on 06/25/2022) 60 tablet 0 docusate 100 MG capsule Take 1 capsule by mouth 2 times daily. (Patient not taking: Reported on 06/25/2022) 60 capsule 0 gliMEPIride 4 MG tablet Take by mouth daily every morning. Takes 2 tablets every morning Januvia 100 MG tablet Take 100 mg by mouth daily. losartan 100 MG tablet Take 100 mg by mouth daily. meloxicam 7.5 MG tablet Take 1 tablet by mouth daily. Take with food. (Patient not taking: Reported on 06/25/2022) 30 tablet 0 meloxicam 7.5 MG tablet Take 1 tablet by mouth daily. (Patient not taking: Reported on 06/25/2022) 30 tablet 1 metFORMIN 1000 MG tablet Take 1,000 mg by mouth 2 times daily. methylPREDNIsolone 4 MG Tab Therapy Pack tablet Take 1 tablet by mouth As directed. follow package directions (Patient not taking: Reported on 06/25/2022) 21 tablet 0 naloxone 4 MG/0.1ML 1 spray by Nasal route once for 1 dose. [place] into the nose as directed. Call 911. If no response in 2 minutes use a new nasal spray in other nostril. Repeat until help arrives. 1 Each 0 omeprazole [address] capsule Take 1 capsule by mouth daily. (Patient not taking: Reported on 06/25/2022) 30 capsule 0 oxyCODONE 5 MG tablet Take one to two tabs every 4-6 hours as needed for severe pain. Wean as tolerated 20 tablet 0 SIMVASTATIN PO Take 20 mg by mouth every evening at 6 PM. sucralfate 1 g tablet Take 1 tablet by mouth every 6 hours. (Patient not taking: Reported on 06/25/2022) 120 tablet 0 therapeutic multivitamin-minerals tablet Take 1 tablet by mouth at bedtime. (Patient not taking: Reported on 06/25/2022) 30 tablet 0 No facility-administered medications prior to visit. Current Outpatient Medications: acetaminophen 325 MG tablet, Take 2 tablets by mouth every 4 hours as needed for Mild Pain., Disp: 50 tablet, Rfl: 1 amoxicillin 500 MG capsule, Prior to dental work., Disp: , Rfl: aspirin EC [address], Take 1 table twice a day for 30days. This medication is for blood clot prevention. (Patient not taking: Reported on 06/25/2022), Disp: 60 tablet, Rfl: 0 docusate 100 MG capsule, Take 1 capsule by mouth 2 times daily. (Patient not taking: Reported on 06/25/2022), Disp: 60 capsule, Rfl: 0 gliMEPIride 4 MG tablet, Take by mouth daily every morning. Takes 2 tablets every morning, Disp: , Rfl: Januvia 100 MG tablet, Take 100 mg by mouth daily., Disp: , Rfl: losartan 100 MG tablet, Take 100 mg by mouth daily., Disp: , Rfl: meloxicam 7.5 MG tablet, Take 1 tablet by mouth daily. Take with food. (Patient not taking: Reported on 06/25/2022), Disp: 30 tablet, Rfl: 0 meloxicam 7.5 MG tablet, Take 1 tablet by mouth daily. (Patient not taking: Reported on 06/25/2022), Disp: 30 tablet, Rfl: 1 metFORMIN 1000 MG tablet, Take 1,000 mg by mouth 2 times daily., Disp: , Rfl: methylPREDNIsolone 4 MG Tab Therapy Pack tablet, Take 1 tablet by mouth As directed. follow package directions (Patient not taking: Reported on 06/25/2022), Disp: 21 tablet, Rfl: 0 naloxone 4 MG/0.1ML, 1 spray by Nasal route once for 1 dose. [place] into the nose as directed. Call 911. If no response in 2 minutes use a new nasal spray in other nostril. Repeat until help arrives., Disp: 1 Each, Rfl: 0 omeprazole [address] capsule, Take 1 capsule by mouth daily. (Patient not taking: Reported on 06/25/2022), Disp: 30 capsule, Rfl: 0 oxyCODONE 5 MG tablet, Take one to two tabs every 4-6 hours as needed for severe pain. Wean as tolerated, Disp: 20 tablet, Rfl: 0 SIMVASTATIN PO, Take 20 mg by mouth every evening at 6 PM., Disp: , Rfl: sucralfate 1 g tablet, Take 1 tablet by mouth every 6 hours. (Patient not taking: Reported on 06/25/2022), Disp: 120 tablet, Rfl: 0 therapeutic multivitamin-minerals tablet, Take 1 tablet by mouth at bedtime. (Patient not taking: Reported on 06/25/2022), Disp: 30 tablet, Rfl: 0 Allergies: She is allergic to actos [pioglitazone], sulfa antibiotics, diclofenac, tramadol, and lisinopril. HPI: Patient is here today for evaluation of their operative knee. She is status post total knee arthroplasty. She is about a year out, reports that she is doing well and is pleased with the outcome of the intervention. The knee feels better now than it did before, and she is not having any new symptoms with it. Some pain in the r hip. Pain in the low back. PHYSICAL EXAM: The operative lower extremity is soft, nontender, full and supple motion. No pain, no impingement. No instability. She has full return of motion, 0-120 degrees, stable examination to varus and valgus stress with normal balance throughout the arc of motion. The contralateral extremity has full motion, normal stability, no tenderness. Both extremities have normal neurovascular status. Skin is otherwise intact. DIAGNOSTIC STUDIES/INTERPRETATION: Plain film radiographs reviewed. She has a Cemented revision total knee arthroplasty in good position and alignment. No evidence of prosthetic implant loosening or migration. IMPRESSION: Stable status post total knee arthroplasty, doing well. PLAN: I am pleased with the outcome of intervention. She has made an excellent recovery. I expect continued improvement in strength and mobility moving forward. I recommend followup in 2 years for repeat clinical and radiographic examination or sooner if any new symptoms develop. Tylenol may be used to manage any aches and pains as needed. She will call with any questions or concerns in the meantime. r hip is arthritic. Wants to eval when to replace the hip and here vs locally. Greater than 20 minutes time was spent in review of the medical records, review of previous imaging, and more than 50% of that time was spent on face to face time with patient. Cynthia Durant APRN-BLAYNE I have reviewed the findings of the clinical contracting support specialist and agree with their assessment. Ortho Nurse - Established Patient Intake Room#: 4 Date: 03/04/2023 11:27 AM Patient: Katt Rahman MR#: [id number] : 1960 Age: 62 y.o. 1yr R TKA Pt stated she is doing better than what is was, but is having back issues and her hip is bothering her. Pt has pain and stiffness at times if sitting to long 4/10 on the pain scale. Referring Physician: Self, Self Insurance: Payor: [employer]CH[employer] / Plan: [employer] / Product Type: *No Product type* / Chief Complaint Patient presents with Right Knee - Follow-up Visit Vitals Ht 1.651 m (5' 5 ) Wt 89.8 kg (198 lb) BMI 32.95 kg/m Pain Recent Labs Lab Results Component Value Date CRP 14.7 (H) 12/06/2021 Lab Results Component Value Date SEDRATE 12 12/06/2021 Lab Results Component Value Date WBC 10.2 03/05/2022 HGB 10.2 (L) 03/05/2022 HCT 30.0 (L) 03/05/2022 PLATELET 213 03/05/2022 MCV 91.2 03/05/2022 History Past Medical History: Diagnosis Date Arthritis Diabetes mellitus Essential hypertension, benign GERD (gastroesophageal reflux disease) Past Surgical History: Procedure Laterality Date REVISION ARTHROPLASTY KNEE Right 03/04/2022 Laterality: Right; Surgeon: Kee Serrato MD; Location: [facility] KNEE REPLACEMENT Right 05/02/2019 Dr. Laly Camara KNEE REPLACEMENT Left 09/27/2018 Dr. Camara Family History: Her family history is not on file. Social History: Her reports that she has never smoked. She has never used smokeless tobacco. She reports that she does not currently use alcohol. She reports that she does not use drugs. Outpatient Medications Prior to Visit Medication Sig Dispense Refill acetaminophen 325 MG tablet Take 2 tablets by mouth every 4 hours as needed for Mild Pain. 50 tablet 1 amoxicillin 500 MG capsule Prior to dental work. aspirin EC [address] Take 1 table twice a day for 30days. This medication is for blood clot prevention. (Patient not taking: Reported on 06/25/2022) 60 tablet 0 docusate 100 MG capsule Take 1 capsule by mouth 2 times daily. (Patient not taking: Reported on 06/25/2022) 60 capsule 0 gliMEPIride 4 MG tablet Take by mouth daily every morning. Takes 2 tablets every morning Januvia 100 MG tablet Take 100 mg by mouth daily. losartan 100 MG tablet Take 100 mg by mouth daily. meloxicam 7.5 MG tablet Take 1 tablet by mouth daily. Take with food. (Patient not taking: Reported on 06/25/2022) 30 tablet 0 meloxicam 7.5 MG tablet Take 1 tablet by mouth daily. (Patient not taking: Reported on 06/25/2022) 30 tablet 1 metFORMIN 1000 MG tablet Take 1,000 mg by mouth 2 times daily. methylPREDNIsolone 4 MG Tab Therapy Pack tablet Take 1 tablet by mouth As directed. follow package directions (Patient not taking: Reported on 06/25/2022) 21 tablet 0 naloxone 4 MG/0.1ML 1 spray by Nasal route once for 1 dose. [place] into the nose as directed. Call 911. If no response in 2 minutes use a new nasal spray in other nostril. Repeat until help arrives. 1 Each 0 omeprazole [address] capsule Take 1 capsule by mouth daily. (Patient not taking: Reported on 06/25/2022) 30 capsule 0 oxyCODONE 5 MG tablet Take one to two tabs every 4-6 hours as needed for severe pain. Wean as tolerated 20 tablet 0 SIMVASTATIN PO Take 20 mg by mouth every evening at 6 PM. sucralfate 1 g tablet Take 1 tablet by mouth every 6 hours. (Patient not taking: Reported on 06/25/2022) 120 tablet 0 therapeutic multivitamin-minerals tablet Take 1 tablet by mouth at bedtime. (Patient not taking: Reported on 06/25/2022) 30 tablet 0 No facility-administered medications prior to visit. Current Outpatient Medications: acetaminophen 325 MG tablet, Take 2 tablets by mouth every 4 hours as needed for Mild Pain., Disp: 50 tablet, Rfl: 1 amoxicillin 500 MG capsule, Prior to dental work., Disp: , Rfl: aspirin EC [address], Take 1 table twice a day for 30days. This medication is for blood clot prevention. (Patient not taking: Reported on 06/25/2022), Disp: 60 tablet, Rfl: 0 docusate 100 MG capsule, Take 1 capsule by mouth 2 times daily. (Patient not taking: Reported on 06/25/2022), Disp: 60 capsule, Rfl: 0 gliMEPIride 4 MG tablet, Take by mouth daily every morning. Takes 2 tablets every morning, Disp: , Rfl: Januvia 100 MG tablet, Take 100 mg by mouth daily., Disp: , Rfl: losartan 100 MG tablet, Take 100 mg by mouth daily., Disp: , Rfl: meloxicam 7.5 MG tablet, Take 1 tablet by mouth daily. Take with food. (Patient not taking: Reported on 06/25/2022), Disp: 30 tablet, Rfl: 0 meloxicam 7.5 MG tablet, Take 1 tablet by mouth daily. (Patient not taking: Reported on 06/25/2022), Disp: 30 tablet, Rfl: 1 metFORMIN 1000 MG tablet, Take 1,000 mg by mouth 2 times daily., Disp: , Rfl: methylPREDNIsolone 4 MG Tab Therapy Pack tablet, Take 1 tablet by mouth As directed. follow package directions (Patient not taking: Reported on 06/25/2022), Disp: 21 tablet, Rfl: 0 naloxone 4 MG/0.1ML, 1 spray by Nasal route once for 1 dose. [place] into the nose as directed. Call 911. If no response in 2 minutes use a new nasal spray in other nostril. Repeat until help arrives., Disp: 1 Each, Rfl: 0 omeprazole [address] capsule, Take 1 capsule by mouth daily. (Patient not taking: Reported on 06/25/2022), Disp: 30 capsule, Rfl: 0 oxyCODONE 5 MG tablet, Take one to two tabs every 4-6 hours as needed for severe pain. Wean as tolerated, Disp: 20 tablet, Rfl: 0 SIMVASTATIN PO, Take 20 mg by mouth every evening at 6 PM., Disp: , Rfl: sucralfate 1 g tablet, Take 1 tablet by mouth every 6 hours. (Patient not taking: Reported on 06/25/2022), Disp: 120 tablet, Rfl: 0 therapeutic multivitamin-minerals tablet, Take 1 tablet by mouth at bedtime. (Patient not taking: Reported on 06/25/2022), Disp: 30 tablet, Rfl: 0 Allergies: She is allergic to actos [pioglitazone], sulfa antibiotics, diclofenac, tramadol, and lisinopril. documented in this encounter [facility] 06-25-2022 History of Presen t illness Narrative Ortho Nurse - Established Patient Intake Room#: 3--4 month post-op visit of Right Knee revision (03-05-22). Her pain is a 3 today. She has continued to do home exercise. She still has pain when going up and down stairs. Date: 06/25/2022 11:38 AM Patient: Katt Rahman MR#: [id number] : 1960 Age: 61 y.o. Referring Physician: Self, Self Insurance: Payor: [employer] / Plan: MMO / Product Type: *No Product type* / Chief Complaint Patient presents with Right Knee - Pain, Post Op Visit Visit Vitals Temp 97.2 F (36.2 C) (Temporal) Ht 1.651 m (5' 5 ) Wt 90.2 kg (198 lb 12.8 oz) BMI 33.08 kg/m Pain Presence of Pain: complains of pain/discomfort Pain Location: knee, right Select Pain Scale: DVPRS (Defense and Veterans Pain Rating Scale) (Adult-Cognitively Intact) Pain Location: knee, right Select Pain Scale: DVPRS (Defense and Veterans Pain Rating Scale) (Adult-Cognitively Intact) Recent Labs Lab Results Component Value Date CRP 14.7 (H) 12/06/2021 Lab Results Component Value Date SEDRATE 12 12/06/2021 Lab Results Component Value Date WBC 10.2 03/05/2022 HGB 10.2 (L) 03/05/2022 HCT 30.0 (L) 03/05/2022 PLATELET 213 03/05/2022 MCV 91.2 03/05/2022 History Past Medical History: Diagnosis Date Arthritis Diabetes mellitus Essential hypertension, benign GERD (gastroesophageal reflux disease) Past Surgical History: Procedure Laterality Date REVISION ARTHROPLASTY KNEE Right 03/04/2022 Laterality: Right; Surgeon: Kee Serrato MD; Location: [facility] KNEE REPLACEMENT Right 05/02/2019 Dr. Laly Camara KNEE REPLACEMENT Left 09/27/2018 Dr. Camara Family History: Her family history is not on file. Social History: Her reports that she has never smoked. She has never used smokeless tobacco. She reports that she does not currently use alcohol. She reports that she does not use drugs. Outpatient Medications Prior to Visit Medication Sig Dispense Refill acetaminophen 325 MG tablet Take 2 tablets by mouth every 4 hours as needed for Mild Pain. 50 tablet 1 amoxicillin 500 MG capsule Prior to dental work. gliMEPIride 4 MG tablet Take by mouth daily every morning. Takes 2 tablets every morning Januvia 100 MG tablet Take 100 mg by mouth daily. losartan 100 MG tablet Take 100 mg by mouth daily. metFORMIN 1000 MG tablet Take 1,000 mg by mouth 2 times daily. SIMVASTATIN PO Take 20 mg by mouth every evening at 6 PM. aspirin EC [address] Take 1 table twice a day for 30days. This medication is for blood clot prevention. (Patient not taking: Reported on 06/25/2022) 60 tablet 0 docusate 100 MG capsule Take 1 capsule by mouth 2 times daily. (Patient not taking: Reported on 06/25/2022) 60 capsule 0 meloxicam 7.5 MG tablet Take 1 tablet by mouth daily. Take with food. (Patient not taking: Reported on 06/25/2022) 30 tablet 0 meloxicam 7.5 MG tablet Take 1 tablet by mouth daily. (Patient not taking: Reported on 06/25/2022) 30 tablet 1 methylPREDNIsolone 4 MG Tab Therapy Pack tablet Take 1 tablet by mouth As directed. follow package directions (Patient not taking: Reported on 06/25/2022) 21 tablet 0 naloxone 4 MG/0.1ML 1 spray by Nasal route once for 1 dose. [place] into the nose as directed. Call 911. If no response in 2 minutes use a new nasal spray in other nostril. Repeat until help arrives. 1 Each 0 omeprazole [address] capsule Take 1 capsule by mouth daily. (Patient not taking: Reported on 06/25/2022) 30 capsule 0 oxyCODONE 5 MG tablet Take one to two tabs every 4-6 hours as needed for severe pain. Wean as tolerated 20 tablet 0 sucralfate 1 g tablet Take 1 tablet by mouth every 6 hours. (Patient not taking: Reported on 06/25/2022) 120 tablet 0 therapeutic multivitamin-minerals tablet Take 1 tablet by mouth at bedtime. (Patient not taking: Reported on 06/25/2022) 30 tablet 0 No facility-administered medications prior to visit. Allergies: She is allergic to actos [pioglitazone], sulfa antibiotics, diclofenac, tramadol, and lisinopril. HPI: Patient is here today for evaluation of their operative knee. She is status post right total knee revision arthroplasty. She is about 4 months out from surgery and reports that she is doing well and is pleased with the outcome of the intervention. She continues to do her home exercises. Her pain is a 3/10upon exam today. PHYSICAL EXAM: The bilateral lower extremities were evaluated. The operative lower extremity is soft, nontender, full and supple motion. No pain, no impingement. No instability. Incision is well healed. She has full return of motion, 0-120 degrees and a stable examination to varus and valgus stress with normal balance throughout the arc of motion. The contralateral extremity has full motion, normal stability, no tenderness. Both extremities have normal neurovascular status. DIAGNOSTIC STUDIES/INTERPRETATION: Plain film radiographs reviewed. Three views of the operative knee show a right total knee revision arthroplasty in good position and alignment. No evidence of prosthetic implant loosening or migration. Long standing films demonstrate neutral recreation of the mechanical axis through the operative leg. IMPRESSION: Stable status post right total knee revision arthroplasty. PLAN: I reviewed my findings with patient. Overall, I am pleased with the outcome of intervention. She has made an excellent recovery thus far. We discussed the stages of healing along with what symptoms that can be expected at current stage. She understands she is at the 40% aileen of total recovery. We also discussed the benefits of performing a variety of exercises at home, with a physical therapist or local gym. She understands and will continue this in a slow, steady manner. I expect continued improvement in strength and mobility moving forward. I recommend followup at one year for repeat clinical and radiographic examination or sooner if any new symptoms develop. She will call with any questions or concerns in the meantime. I have reviewed the findings of the clinical contracting support specialist and agree with their assessment. Ortho Nurse - Established Patient Intake Room#: 3--4 month post-op visit of Right Knee revision (03-05-22). Her pain is a 3 today. She has continued to do home exercise. She still has pain when going up and down stairs. Date: 06/25/2022 11:38 AM Patient: Katt Rahman MR#: [id number] : 1960 Age: 61 y.o. Referring Physician: Self, Self Insurance: Payor: [employer] / Plan: MMO / Product Type: *No Product type* / Chief Complaint Patient presents with Right Knee - Pain, Post Op Visit Visit Vitals Temp 97.2 F (36.2 C) (Temporal) Ht 1.651 m (5' 5 ) Wt 90.2 kg (198 lb 12.8 oz) BMI 33.08 kg/m Pain Presence of Pain: complains of pain/discomfort Pain Location: knee, right Select Pain Scale: DVPRS (Defense and Veterans Pain Rating Scale) (Adult-Cognitively Intact) Pain Location: knee, right Select Pain Scale: DVPRS (Defense and Veterans Pain Rating Scale) (Adult-Cognitively Intact) Recent Labs Lab Results Component Value Date CRP 14.7 (H) 12/06/2021 Lab Results Component Value Date SEDRATE 12 12/06/2021 Lab Results Component Value Date WBC 10.2 03/05/2022 HGB 10.2 (L) 03/05/2022 HCT 30.0 (L) 03/05/2022 PLATELET 213 03/05/2022 MCV 91.2 03/05/2022 History Past Medical History: Diagnosis Date Arthritis Diabetes mellitus Essential hypertension, benign GERD (gastroesophageal reflux disease) Past Surgical History: Procedure Laterality Date REVISION ARTHROPLASTY KNEE Right 03/04/2022 Laterality: Right; Surgeon: Kee Serrato MD; Location: [facility] KNEE REPLACEMENT Right 05/02/2019 Dr. Laly Camara KNEE REPLACEMENT Left 09/27/2018 Dr. Camara Family History: Her family history is not on file. Social History: Her reports that she has never smoked. She has never used smokeless tobacco. She reports that she does not currently use alcohol. She reports that she does not use drugs. Outpatient Medications Prior to Visit Medication Sig Dispense Refill acetaminophen 325 MG tablet Take 2 tablets by mouth every 4 hours as needed for Mild Pain. 50 tablet 1 amoxicillin 500 MG capsule Prior to dental work. gliMEPIride 4 MG tablet Take by mouth daily every morning. Takes 2 tablets every morning Januvia 100 MG tablet Take 100 mg by mouth daily. losartan 100 MG tablet Take 100 mg by mouth daily. metFORMIN 1000 MG tablet Take 1,000 mg by mouth 2 times daily. SIMVASTATIN PO Take 20 mg by mouth every evening at 6 PM. aspirin EC [address] Take 1 table twice a day for 30days. This medication is for blood clot prevention. (Patient not taking: Reported on 06/25/2022) 60 tablet 0 docusate 100 MG capsule Take 1 capsule by mouth 2 times daily. (Patient not taking: Reported on 06/25/2022) 60 capsule 0 meloxicam 7.5 MG tablet Take 1 tablet by mouth daily. Take with food. (Patient not taking: Reported on 06/25/2022) 30 tablet 0 meloxicam 7.5 MG tablet Take 1 tablet by mouth daily. (Patient not taking: Reported on 06/25/2022) 30 tablet 1 methylPREDNIsolone 4 MG Tab Therapy Pack tablet Take 1 tablet by mouth As directed. follow package directions (Patient not taking: Reported on 06/25/2022) 21 tablet 0 naloxone 4 MG/0.1ML 1 spray by Nasal route once for 1 dose. [place] into the nose as directed. Call 911. If no response in 2 minutes use a new nasal spray in other nostril. Repeat until help arrives. 1 Each 0 omeprazole [address] capsule Take 1 capsule by mouth daily. (Patient not taking: Reported on 06/25/2022) 30 capsule 0 oxyCODONE 5 MG tablet Take one to two tabs every 4-6 hours as needed for severe pain. Wean as tolerated 20 tablet 0 sucralfate 1 g tablet Take 1 tablet by mouth every 6 hours. (Patient not taking: Reported on 06/25/2022) 120 tablet 0 therapeutic multivitamin-minerals tablet Take 1 tablet by mouth at bedtime. (Patient not taking: Reported on 06/25/2022) 30 tablet 0 No facility-administered medications prior to visit. Allergies: She is allergic to actos [pioglitazone], sulfa antibiotics, diclofenac, tramadol, and lisinopril. documented in this encounter [facility] 04-16-2022 History of Presen t illness Narrative Ortho Nurse - Established Patient Intake Room#: 4 Date: 04/16/2022 1:39 PM Patient: Katt Rahman MR#: [id number] : 1960 Age: 61 y.o. R TKA (03/04/2022) F/U Pt stated she is doing pretty good just real stiff and has little pain 3/10 on the pain scale. Referring Physician: Self, Self Insurance: Payor: [employer] / Plan: MMO / Product Type: *No Product type* / Chief Complaint Patient presents with Right Knee - Follow-up Visit Vitals Temp 97.1 F (36.2 C) (Temporal) Ht 1.651 m (5' 5 ) Wt 90.3 kg (199 lb) BMI 33.12 kg/m Pain Recent Labs Lab Results Component Value Date CRP 14.7 (H) 12/06/2021 Lab Results Component Value Date SEDRATE 12 12/06/2021 Lab Results Component Value Date WBC 10.2 03/05/2022 HGB 10.2 (L) 03/05/2022 HCT 30.0 (L) 03/05/2022 PLATELET 213 03/05/2022 MCV 91.2 03/05/2022 History Past Medical History: Diagnosis Date Arthritis Diabetes mellitus Essential hypertension, benign GERD (gastroesophageal reflux disease) Past Surgical History: Procedure Laterality Date REVISION ARTHROPLASTY KNEE Right 03/04/2022 Laterality: Right; Surgeon: Kee Serrato MD; Location: [facility] KNEE REPLACEMENT Right 05/02/2019 Dr. Laly Camara KNEE REPLACEMENT Left 09/27/2018 Dr. Camara Family History: Her family history is not on file. Social History: Her reports that she has never smoked. She has never used smokeless tobacco. She reports that she does not currently use alcohol. She reports that she does not use drugs. Outpatient Medications Prior to Visit Medication Sig Dispense Refill acetaminophen 325 MG tablet Take 2 tablets by mouth every 4 hours as needed for Mild Pain. 50 tablet 1 amoxicillin 500 MG capsule Prior to dental work. aspirin EC [address] Take 1 table twice a day for 30days. This medication is for blood clot prevention. 60 tablet 0 docusate 100 MG capsule Take 1 capsule by mouth 2 times daily. 60 capsule 0 gliMEPIride 4 MG tablet Take by mouth daily every morning. Takes 2 tablets every morning Januvia 100 MG tablet Take 100 mg by mouth daily. losartan 100 MG tablet Take 100 mg by mouth daily. meloxicam 7.5 MG tablet Take 1 tablet by mouth daily. Take with food. 30 tablet 0 metFORMIN 1000 MG tablet Take 1,000 mg by mouth 2 times daily. methylPREDNIsolone 4 MG Tab Therapy Pack tablet Take 1 tablet by mouth As directed. follow package directions 21 tablet 0 omeprazole [address] capsule Take 1 capsule by mouth daily. 30 capsule 0 SIMVASTATIN PO Take 20 mg by mouth every evening at 6 PM. sucralfate 1 g tablet Take 1 tablet by mouth every 6 hours. 120 tablet 0 therapeutic multivitamin-minerals tablet Take 1 tablet by mouth at bedtime. 30 tablet 0 naloxone 4 MG/0.1ML 1 spray by Nasal route once for 1 dose. [place] into the nose as directed. Call 911. If no response in 2 minutes use a new nasal spray in other nostril. Repeat until help arrives. 1 Each 0 oxyCODONE 5 MG tablet Take one to two tabs every 4-6 hours as needed for severe pain. Wean as tolerated 20 tablet 0 No facility-administered medications prior to visit. Current Outpatient Medications: acetaminophen 325 MG tablet, Take 2 tablets by mouth every 4 hours as needed for Mild Pain., Disp: 50 tablet, Rfl: 1 amoxicillin 500 MG capsule, Prior to dental work., Disp: , Rfl: aspirin EC [address], Take 1 table twice a day for 30days. This medication is for blood clot prevention., Disp: 60 tablet, Rfl: 0 docusate 100 MG capsule, Take 1 capsule by mouth 2 times daily., Disp: 60 capsule, Rfl: 0 gliMEPIride 4 MG tablet, Take by mouth daily every morning. Takes 2 tablets every morning, Disp: , Rfl: Januvia 100 MG tablet, Take 100 mg by mouth daily., Disp: , Rfl: losartan 100 MG tablet, Take 100 mg by mouth daily., Disp: , Rfl: meloxicam 7.5 MG tablet, Take 1 tablet by mouth daily. Take with food., Disp: 30 tablet, Rfl: 0 metFORMIN 1000 MG tablet, Take 1,000 mg by mouth 2 times daily., Disp: , Rfl: methylPREDNIsolone 4 MG Tab Therapy Pack tablet, Take 1 tablet by mouth As directed. follow package directions, Disp: 21 tablet, Rfl: 0 omeprazole [address] capsule, Take 1 capsule by mouth daily., Disp: 30 capsule, Rfl: 0 SIMVASTATIN PO, Take 20 mg by mouth every evening at 6 PM., Disp: , Rfl: sucralfate 1 g tablet, Take 1 tablet by mouth every 6 hours., Disp: 120 tablet, Rfl: 0 therapeutic multivitamin-minerals tablet, Take 1 tablet by mouth at bedtime., Disp: 30 tablet, Rfl: 0 naloxone 4 MG/0.1ML, 1 spray by Nasal route once for 1 dose. [place] into the nose as directed. Call 911. If no response in 2 minutes use a new nasal spray in other nostril. Repeat until help arrives., Disp: 1 Each, Rfl: 0 oxyCODONE 5 MG tablet, Take one to two tabs every 4-6 hours as needed for severe pain. Wean as tolerated, Disp: 20 tablet, Rfl: 0 Allergies: She is allergic to actos [pioglitazone], sulfa antibiotics, diclofenac, tramadol, and lisinopril. SUBJECTIVE: Katt is an established patient of [facility]. Here today for followup. She is now about 6 weeks out from right knee revision. Reports overall she is doing well. She has made great improvements with physical therapy. She is pleased with the outcomes of the operation. She still has some stiffness at times but that is to be expected. Incisions well healed. No problems with the wound. No fevers or chills. No changes constitutionally. PHYSICAL EXAMINATION: GENERAL: She is alert, oriented, and age-appropriate female, in no acute distress. Pleasant and cooperative. EXTREMITIES: Right lower extremity has thigh and calf soft, nontender. Normal neurovascular status. Negative Homans sign. Range of motion 0-120 degrees. Knee is stable to varus and valgus stress. No increased anterior or posterior drawer. Well-healed anterior midline knee incision without any redness, drainage, dehiscence, discharge, signs or symptoms of infection. Left lower extremity has thigh and calf soft, nontender. Normal neurovascular status. Negative Homans sign. DIAGNOSTIC STUDY INTERPRETATION: AP her 3 views of the knee demonstrate stable position and alignment of the cemented revision total knee arthroplasty, it is in unchanged position and alignment when compared to previous imaging. No evidence of periprosthetic implant loosening or migration. No evidence of fracture. ASSESSMENT: Six weeks status post right total knee, doing well. PLAN: I reviewed my findings with Katt. Overall, I cannot be happier with the outcomes of the operation. I am pleased with the improvement she has made in physical therapy. She clearly works hard and I have commended her for that. I expect continued improvements in strength and mobility moving forward. She is to see Dr. Serrato at her routinely scheduled 4- month appointment. I have encouraged her to complete physical therapy at the direction of her physical therapist. Call with any questions or concerns in the meantime. ([id number]) I have reviewed the findings of the clinical contracting support specialist and agree with their assessment. MATT Matos Ortho Nurse - Established Patient Intake Room#: 4 Date: 04/16/2022 1:39 PM Patient: Katt Rahman MR#: [id number] : 1960 Age: 61 y.o. R TKA (03/04/2022) F/U Pt stated she is doing pretty good just real stiff and has little pain 3/10 on the pain scale. Referring Physician: Self, Self Insurance: Payor: [employer] / Plan: MMO / Product Type: *No Product type* / Chief Complaint Patient presents with Right Knee - Follow-up Visit Vitals Temp 97.1 F (36.2 C) (Temporal) Ht 1.651 m (5' 5 ) Wt 90.3 kg (199 lb) BMI 33.12 kg/m Pain Recent Labs Lab Results Component Value Date CRP 14.7 (H) 12/06/2021 Lab Results Component Value Date SEDRATE 12 12/06/2021 Lab Results Component Value Date WBC 10.2 03/05/2022 HGB 10.2 (L) 03/05/2022 HCT 30.0 (L) 03/05/2022 PLATELET 213 03/05/2022 MCV 91.2 03/05/2022 History Past Medical History: Diagnosis Date Arthritis Diabetes mellitus Essential hypertension, benign GERD (gastroesophageal reflux disease) Past Surgical History: Procedure Laterality Date REVISION ARTHROPLASTY KNEE Right 03/04/2022 Laterality: Right; Surgeon: Kee Serrato MD; Location: [facility] KNEE REPLACEMENT Right 05/02/2019 Dr. Laly Camara KNEE REPLACEMENT Left 09/27/2018 Dr. Camara Family History: Her family history is not on file. Social History: Her reports that she has never smoked. She has never used smokeless tobacco. She reports that she does not currently use alcohol. She reports that she does not use drugs. Outpatient Medications Prior to Visit Medication Sig Dispense Refill acetaminophen 325 MG tablet Take 2 tablets by mouth every 4 hours as needed for Mild Pain. 50 tablet 1 amoxicillin 500 MG capsule Prior to dental work. aspirin EC [address] Take 1 table twice a day for 30days. This medication is for blood clot prevention. 60 tablet 0 docusate 100 MG capsule Take 1 capsule by mouth 2 times daily. 60 capsule 0 gliMEPIride 4 MG tablet Take by mouth daily every morning. Takes 2 tablets every morning Januvia 100 MG tablet Take 100 mg by mouth daily. losartan 100 MG tablet Take 100 mg by mouth daily. meloxicam 7.5 MG tablet Take 1 tablet by mouth daily. Take with food. 30 tablet 0 metFORMIN 1000 MG tablet Take 1,000 mg by mouth 2 times daily. methylPREDNIsolone 4 MG Tab Therapy Pack tablet Take 1 tablet by mouth As directed. follow package directions 21 tablet 0 omeprazole [address] capsule Take 1 capsule by mouth daily. 30 capsule 0 SIMVASTATIN PO Take 20 mg by mouth every evening at 6 PM. sucralfate 1 g tablet Take 1 tablet by mouth every 6 hours. 120 tablet 0 therapeutic multivitamin-minerals tablet Take 1 tablet by mouth at bedtime. 30 tablet 0 naloxone 4 MG/0.1ML 1 spray by Nasal route once for 1 dose. [place] into the nose as directed. Call 911. If no response in 2 minutes use a new nasal spray in other nostril. Repeat until help arrives. 1 Each 0 oxyCODONE 5 MG tablet Take one to two tabs every 4-6 hours as needed for severe pain. Wean as tolerated 20 tablet 0 No facility-administered medications prior to visit. Current Outpatient Medications: acetaminophen 325 MG tablet, Take 2 tablets by mouth every 4 hours as needed for Mild Pain., Disp: 50 tablet, Rfl: 1 amoxicillin 500 MG capsule, Prior to dental work., Disp: , Rfl: aspirin EC [address], Take 1 table twice a day for 30days. This medication is for blood clot prevention., Disp: 60 tablet, Rfl: 0 docusate 100 MG capsule, Take 1 capsule by mouth 2 times daily., Disp: 60 capsule, Rfl: 0 gliMEPIride 4 MG tablet, Take by mouth daily every morning. Takes 2 tablets every morning, Disp: , Rfl: Januvia 100 MG tablet, Take 100 mg by mouth daily., Disp: , Rfl: losartan 100 MG tablet, Take 100 mg by mouth daily., Disp: , Rfl: meloxicam 7.5 MG tablet, Take 1 tablet by mouth daily. Take with food., Disp: 30 tablet, Rfl: 0 metFORMIN 1000 MG tablet, Take 1,000 mg by mouth 2 times daily., Disp: , Rfl: methylPREDNIsolone 4 MG Tab Therapy Pack tablet, Take 1 tablet by mouth As directed. follow package directions, Disp: 21 tablet, Rfl: 0 omeprazole [address] capsule, Take 1 capsule by mouth daily., Disp: 30 capsule, Rfl: 0 SIMVASTATIN PO, Take 20 mg by mouth every evening at 6 PM., Disp: , Rfl: sucralfate 1 g tablet, Take 1 tablet by mouth every 6 hours., Disp: 120 tablet, Rfl: 0 therapeutic multivitamin-minerals tablet, Take 1 tablet by mouth at bedtime., Disp: 30 tablet, Rfl: 0 naloxone 4 MG/0.1ML, 1 spray by Nasal route once for 1 dose. [place] into the nose as directed. Call 911. If no response in 2 minutes use a new nasal spray in other nostril. Repeat until help arrives., Disp: 1 Each, Rfl: 0 oxyCODONE 5 MG tablet, Take one to two tabs every 4-6 hours as needed for severe pain. Wean as tolerated, Disp: 20 tablet, Rfl: 0 Allergies: She is allergic to actos [pioglitazone], sulfa antibiotics, diclofenac, tramadol, and lisinopril. documented in this encounter [facility] 03-26-2022 History of Presen t illness Narrative Ortho Nurse - Established Patient Intake Room#: 5 Date: 03/26/2022 1:26 PM Patient: Katt Rahman MR#: [id number] : 1960 Age: 61 y.o. 3 wks s/p R TKA revision. She states she is doing well and is having very little pain but is 7/10 on pain scale with PT, doing outpatient now. She is using a walker for assistive device. Referring Physician: Self, Self Insurance: Payor: [employer] / Plan: MMO / Product Type: *No Product type* / Chief Complaint Patient presents with Right Knee - Post Op Visit Visit Vitals Temp 97.5 F (36.4 C) (Temporal) Ht 1.651 m (5' 5 ) Wt 90.3 kg (199 lb) BMI 33.12 kg/m Pain Recent Labs Lab Results Component Value Date CRP 14.7 (H) 12/06/2021 Lab Results Component Value Date SEDRATE 12 12/06/2021 Lab Results Component Value Date WBC 10.2 03/05/2022 HGB 10.2 (L) 03/05/2022 HCT 30.0 (L) 03/05/2022 PLATELET 213 03/05/2022 MCV 91.2 03/05/2022 History Past Medical History: Diagnosis Date Arthritis Diabetes mellitus Essential hypertension, benign GERD (gastroesophageal reflux disease) Past Surgical History: Procedure Laterality Date REVISION ARTHROPLASTY KNEE Right 03/04/2022 Laterality: Right; Surgeon: Kee Serrato MD; Location: [facility] KNEE REPLACEMENT Right 05/02/2019 Dr. Laly Camara KNEE REPLACEMENT Left 09/27/2018 Dr. Camara Family History: Her family history is not on file. Social History: Her reports that she has never smoked. She has never used smokeless tobacco. She reports previous alcohol use. She reports that she does not use drugs. Outpatient Medications Prior to Visit Medication Sig Dispense Refill acetaminophen 325 MG tablet Take 2 tablets by mouth every 4 hours as needed for Mild Pain. 50 tablet 1 amoxicillin 500 MG capsule Prior to dental work. (Patient not taking: No sig reported) aspirin EC [address] Take 1 table twice a day for 30days. This medication is for blood clot prevention. 60 tablet 0 docusate 100 MG capsule Take 1 capsule by mouth 2 times daily. 60 capsule 0 gliMEPIride 4 MG tablet Take by mouth daily every morning. Takes 2 tablets every morning Januvia 100 MG tablet Take 100 mg by mouth daily. losartan 100 MG tablet Take 100 mg by mouth daily. meloxicam 7.5 MG tablet Take 1 tablet by mouth daily. Take with food. 30 tablet 0 metFORMIN 1000 MG tablet Take 1,000 mg by mouth 2 times daily. naloxone 4 MG/0.1ML 1 spray by Nasal route once for 1 dose. [place] into the nose as directed. Call 911. If no response in 2 minutes use a new nasal spray in other nostril. Repeat until help arrives. 1 Each 0 omeprazole [address] capsule Take 1 capsule by mouth daily. 30 capsule 0 oxyCODONE 5 MG tablet Take one to two tabs every 4-6 hours as needed for severe pain. Wean as tolerated 20 tablet 0 SIMVASTATIN PO Take 20 mg by mouth every evening at 6 PM. sucralfate 1 g tablet Take 1 tablet by mouth every 6 hours. 120 tablet 0 therapeutic multivitamin-minerals tablet Take 1 tablet by mouth at bedtime. 30 tablet 0 No facility-administered medications prior to visit. Current Outpatient Medications: acetaminophen 325 MG tablet, Take 2 tablets by mouth every 4 hours as needed for Mild Pain., Disp: 50 tablet, Rfl: 1 amoxicillin 500 MG capsule, Prior to dental work. (Patient not taking: No sig reported), Disp: , Rfl: aspirin EC [address], Take 1 table twice a day for 30days. This medication is for blood clot prevention., Disp: 60 tablet, Rfl: 0 docusate 100 MG capsule, Take 1 capsule by mouth 2 times daily., Disp: 60 capsule, Rfl: 0 gliMEPIride 4 MG tablet, Take by mouth daily every morning. Takes 2 tablets every morning, Disp: , Rfl: Januvia 100 MG tablet, Take 100 mg by mouth daily., Disp: , Rfl: losartan 100 MG tablet, Take 100 mg by mouth daily., Disp: , Rfl: meloxicam 7.5 MG tablet, Take 1 tablet by mouth daily. Take with food., Disp: 30 tablet, Rfl: 0 metFORMIN 1000 MG tablet, Take 1,000 mg by mouth 2 times daily., Disp: , Rfl: naloxone 4 MG/0.1ML, 1 spray by Nasal route once for 1 dose. [place] into the nose as directed. Call 911. If no response in 2 minutes use a new nasal spray in other nostril. Repeat until help arrives., Disp: 1 Each, Rfl: 0 omeprazole [address] capsule, Take 1 capsule by mouth daily., Disp: 30 capsule, Rfl: 0 oxyCODONE 5 MG tablet, Take one to two tabs every 4-6 hours as needed for severe pain. Wean as tolerated, Disp: 20 tablet, Rfl: 0 SIMVASTATIN PO, Take 20 mg by mouth every evening at 6 PM., Disp: , Rfl: sucralfate 1 g tablet, Take 1 tablet by mouth every 6 hours., Disp: 120 tablet, Rfl: 0 therapeutic multivitamin-minerals tablet, Take 1 tablet by mouth at bedtime., Disp: 30 tablet, Rfl: 0 Allergies: She is allergic to actos [pioglitazone], sulfa antibiotics, diclofenac, tramadol, and lisinopril. HPI: Katt Rahman is 3 weeks s/p right TKA revision. She is happy with her recovery to date and could not be happier with the outcomes of the operation. She is participating in PT in the outpatient setting, using asa for DVT prophylaxis along with compression stockings. She is using tylenol and mobic for pain control.. PHYSICAL EXAM: Today on examination she is Temp 97.5 F (36.4 C) (Temporal) Ht 1.651 m (5' 5 ) Wt 90.3 kg (199 lb) BMI 33.12 kg/m Smoking Status Never Smoker Body mass index is 33.12 kg/m . Pain is reported as 7/10. Incision is healing well without erythema, drainage, induration or evidence of dehiscence. There is mild global knee swelling. Calves are soft and non tender bilaterally with negative Homans sign. Distal neurovascular exam is intact. ROM is reported as 0-90 in physical therapy, today it is found to be 0-90. The examination is stable to varus and valgus stress. DIAGNOSTIC STUDIES/INTERPRETATION: X-rays were reviewed today and reveal Cemented total knee arthroplasty in good position and alignment unchanged from the immediate postop films. Assessment/Plan: 3 weeks postop right TKA revision. Continue DVT prophylaxis as prescribed. Continue physical therapy- I and concerned with current rom. I would like to give medrol dosepack and follow up in 3 weeks. Briefly discussed risk of manipulation. otherwise plan for: Follow up [address] Serrato for clinical and radiological evaluation unless an earlier need should arise. Dental prophylaxis was prescribed and instructions given. All questions and concerns were addressed at this appointment and the patient expressed understanding. All pertinent portions of the clinical contracting support specialist documentation was reviewed and agree. MATT Matos I have reviewed the findings of the clinical contracting support specialist and agree with their assessment. MATT Matos Ortho Nurse - Established Patient Intake Room#: 5 Date: 03/26/2022 1:26 PM Patient: Katt Rahman MR#: [id number] : 1960 Age: 61 y.o. 3 wks s/p R TKA revision. She states she is doing well and is having very little pain but is 7/10 on pain scale with PT, doing outpatient now. She is using a walker for assistive device. Referring Physician: Self, Self Insurance: Payor: [employer] / Plan: MMO / Product Type: *No Product type* / Chief Complaint Patient presents with Right Knee - Post Op Visit Visit Vitals Temp 97.5 F (36.4 C) (Temporal) Ht 1.651 m (5' 5 ) Wt 90.3 kg (199 lb) BMI 33.12 kg/m Pain Recent Labs Lab Results Component Value Date CRP 14.7 (H) 12/06/2021 Lab Results Component Value Date SEDRATE 12 12/06/2021 Lab Results Component Value Date WBC 10.2 03/05/2022 HGB 10.2 (L) 03/05/2022 HCT 30.0 (L) 03/05/2022 PLATELET 213 03/05/2022 MCV 91.2 03/05/2022 History Past Medical History: Diagnosis Date Arthritis Diabetes mellitus Essential hypertension, benign GERD (gastroesophageal reflux disease) Past Surgical History: Procedure Laterality Date REVISION ARTHROPLASTY KNEE Right 03/04/2022 Laterality: Right; Surgeon: Kee Serrato MD; Location: [facility] KNEE REPLACEMENT Right 05/02/2019 Dr. Laly Camara KNEE REPLACEMENT Left 09/27/2018 Dr. Camara Family History: Her family history is not on file. Social History: Her reports that she has never smoked. She has never used smokeless tobacco. She reports previous alcohol use. She reports that she does not use drugs. Outpatient Medications Prior to Visit Medication Sig Dispense Refill acetaminophen 325 MG tablet Take 2 tablets by mouth every 4 hours as needed for Mild Pain. 50 tablet 1 amoxicillin 500 MG capsule Prior to dental work. (Patient not taking: No sig reported) aspirin EC [address] Take 1 table twice a day for 30days. This medication is for blood clot prevention. 60 tablet 0 docusate 100 MG capsule Take 1 capsule by mouth 2 times daily. 60 capsule 0 gliMEPIride 4 MG tablet Take by mouth daily every morning. Takes 2 tablets every morning Januvia 100 MG tablet Take 100 mg by mouth daily. losartan 100 MG tablet Take 100 mg by mouth daily. meloxicam 7.5 MG tablet Take 1 tablet by mouth daily. Take with food. 30 tablet 0 metFORMIN 1000 MG tablet Take 1,000 mg by mouth 2 times daily. naloxone 4 MG/0.1ML 1 spray by Nasal route once for 1 dose. [place] into the nose as directed. Call 911. If no response in 2 minutes use a new nasal spray in other nostril. Repeat until help arrives. 1 Each 0 omeprazole [address] capsule Take 1 capsule by mouth daily. 30 capsule 0 oxyCODONE 5 MG tablet Take one to two tabs every 4-6 hours as needed for severe pain. Wean as tolerated 20 tablet 0 SIMVASTATIN PO Take 20 mg by mouth every evening at 6 PM. sucralfate 1 g tablet Take 1 tablet by mouth every 6 hours. 120 tablet 0 therapeutic multivitamin-minerals tablet Take 1 tablet by mouth at bedtime. 30 tablet 0 No facility-administered medications prior to visit. Current Outpatient Medications: acetaminophen 325 MG tablet, Take 2 tablets by mouth every 4 hours as needed for Mild Pain., Disp: 50 tablet, Rfl: 1 amoxicillin 500 MG capsule, Prior to dental work. (Patient not taking: No sig reported), Disp: , Rfl: aspirin EC [address], Take 1 table twice a day for 30days. This medication is for blood clot prevention., Disp: 60 tablet, Rfl: 0 docusate 100 MG capsule, Take 1 capsule by mouth 2 times daily., Disp: 60 capsule, Rfl: 0 gliMEPIride 4 MG tablet, Take by mouth daily every morning. Takes 2 tablets every morning, Disp: , Rfl: Januvia 100 MG tablet, Take 100 mg by mouth daily., Disp: , Rfl: losartan 100 MG tablet, Take 100 mg by mouth daily., Disp: , Rfl: meloxicam 7.5 MG tablet, Take 1 tablet by mouth daily. Take with food., Disp: 30 tablet, Rfl: 0 metFORMIN 1000 MG tablet, Take 1,000 mg by mouth 2 times daily., Disp: , Rfl: naloxone 4 MG/0.1ML, 1 spray by Nasal route once for 1 dose. [place] into the nose as directed. Call 911. If no response in 2 minutes use a new nasal spray in other nostril. Repeat until help arrives., Disp: 1 Each, Rfl: 0 omeprazole [address] capsule, Take 1 capsule by mouth daily., Disp: 30 capsule, Rfl: 0 oxyCODONE 5 MG tablet, Take one to two tabs every 4-6 hours as needed for severe pain. Wean as tolerated, Disp: 20 tablet, Rfl: 0 SIMVASTATIN PO, Take 20 mg by mouth every evening at 6 PM., Disp: , Rfl: sucralfate 1 g tablet, Take 1 tablet by mouth every 6 hours., Disp: 120 tablet, Rfl: 0 therapeutic multivitamin-minerals tablet, Take 1 tablet by mouth at bedtime., Disp: 30 tablet, Rfl: 0 Allergies: She is allergic to actos [pioglitazone], sulfa antibiotics, diclofenac, tramadol, and lisinopril. documented in this encounter [facility] 01-16-2022 History of Presen t illness Narrative Ortho Nurse - Established Patient Intake Room#: 1 Date: 01/16/2022 1:15 PM Patient: Katt Rahman MR#: [id number] : 1960 Age: 61 y.o. Hx of Bilat tka by Dr Camara in 2019. Bilat knee pain R>L R knee pain and had a bone scan by Lindsay at [facility] in [place] showing possible loosening. She states it's a /10 with activity. Referring Physician: Kee Serrato MD Insurance: Payor: [employer] / Plan: MMO / Product Type: *No Product type* / Chief Complaint Patient presents with Right Knee - Pain Visit Vitals Temp 97.6 F (36.4 C) (Temporal) Ht 1.651 m (5' 5 ) Wt 90.6 kg (199 lb 12.8 oz) BMI 33.25 kg/m Pain Recent Labs Lab Results Component Value Date CRP 14.7 (H) 12/06/2021 Lab Results Component Value Date SEDRATE 12 12/06/2021 Lab Results Component Value Date WBC 7.6 12/06/2021 HGB 11.9 (L) 12/06/2021 HCT 35.2 (L) 12/06/2021 PLATELET 257 12/06/2021 MCV 89.4 12/06/2021 History Past Medical History: Diagnosis Date Arthritis Diabetes mellitus Essential hypertension, benign GERD (gastroesophageal reflux disease) Past Surgical History: Procedure Laterality Date KNEE REPLACEMENT Right 05/02/2019 Dr. Laly Camara KNEE REPLACEMENT Left 09/27/2018 Dr. Camara Family History: Her family history is not on file. Social History: Her reports that she has never smoked. She has never used smokeless tobacco. She reports previous alcohol use. She reports that she does not use drugs. Outpatient Medications Prior to Visit Medication Sig Dispense Refill gliMEPIride 4 MG tablet Take by mouth daily every morning. Takes 2 tablets every morning Januvia 100 MG tablet Take 100 mg by mouth daily. losartan 100 MG tablet Take 100 mg by mouth daily. meloxicam 7.5 MG tablet Take 7.5 mg by mouth daily. metFORMIN 1000 MG tablet Take 1,000 mg by mouth 2 times daily. omeprazole [address] capsule Take 20 mg by mouth daily. amoxicillin 500 MG capsule Prior to dental work. (Patient not taking: Reported on 01/16/2022) No facility-administered medications prior to visit. Current Outpatient Medications: gliMEPIride 4 MG tablet, Take by mouth daily every morning. Takes 2 tablets every morning, Disp: , Rfl: Januvia 100 MG tablet, Take 100 mg by mouth daily., Disp: , Rfl: losartan 100 MG tablet, Take 100 mg by mouth daily., Disp: , Rfl: meloxicam 7.5 MG tablet, Take 7.5 mg by mouth daily., Disp: , Rfl: metFORMIN 1000 MG tablet, Take 1,000 mg by mouth 2 times daily., Disp: , Rfl: omeprazole [address] capsule, Take 20 mg by mouth daily., Disp: , Rfl: amoxicillin 500 MG capsule, Prior to dental work. (Patient not taking: Reported on 01/16/2022), Disp: , Rfl: Allergies: She is allergic to actos [pioglitazone], sulfa antibiotics, diclofenac, tramadol, and lisinopril. HPI: Patient is here today to be evaluated for bilateral knee pain, right is worse than left. She is a pleasant 60 y.o. female. Primary complaint is pain and discomfort. She has experienced a progressive decline in physical function and quality of life secondary to the discomfort in the bilateral knee. Her right TKA was done 05-02-2019 and left TKA on 09-27-[address] Camara. She was last seen by myself on 10/10/21, she was referral to Dr. Hernandez for a IA hip joint injection to rule out the hip as a contributory source. She has completed two of the hip injections since then and has had relief of symptoms in the groin but the knee pain persists. Dr. Hernandez ordered a bone scan which was done at [facility] in [place] which showed possible loosening of the left knee but she is asymptomatic in the left knee. She states her right knee feels unpredictable, uses a brace and has failed physical therapy sessions. The brace does provide extra support when wearing but would like to not wear it. She is here today for repeat evaluation. Her pain is a 4/10 upon exam today. PHYSICAL EXAM: This is an alert, oriented, and age-appropriate female. She is in no distress. Pleasant and cooperative. EXTREMITIES: The upper extremities have no gross deformities. Normal stability. Skin Intact. 5/5 motor. Intact sensation. Normal neurovascular status. Normal coordination. The lower extremities have no gross deformities. Normal stability. Skin Intact. 5/5 motor. Intact sensation. Normal neurovascular status. Normal coordination. Range of motion upon exam today is 5-110 with significant opening consistent with flexion instability. Painful range of motion. Right hip demonstrates some pain with rotation. Contralateral leg has normal alignment. Full motion. No pain. No impingement. No instability. IMAGING: Previous plain film radiographs were reviewed. She has cemented bilateral posterior stablized total knee arthroplasty in reasonable position and alignment with moderate OA of hips. Long standing films demonstrate fairly neutral recreation of bilateral knees. IMPRESSION: 1.) Flexion instability, moderate laxity, right prosthetic knee. 2.) Symptomatic right hip arthritis, under the care of Dr. Hernandez. PLAN: I have reviewed my findings with the patient. We have gone over the diagnosis and the treatment. We reviewed her imaging and physical exam findings. We re-discussed her instability of the right knee felt on exam today. 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 We then discussed conservative vrs surgical interventions along with the pros and cons of each method. 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 We have discussed in great detail the nature of the diagnosis, the natural history and expected progression which is likely worsening pain, worsening instability with risks of falls, and potentially additional joint and or bone wear. We have discussed the options for treatment including both conservative and operative treatments. We have discussed the risks, benefits, and alternatives to each treatment. Katt understands that the potential benefits are reduced pain, improved stability and improved function. Katt understands the complex nature of revision surgery and that the elevated major life or limb threatening risks that include, but are not limited to: bleeding, infection, neurovascular injury including foot drop or paralysis, dislocation, component failure, implant loosening, ligament or tendon disruption, fracture, stiffness, chronic pain, chronic disability, need for further surgery, blood clots in the extremities or lungs, stroke, heart attack, loss of limb, and ultimately loss of life. In particular the patient understands the increased and major risks of revision surgery such as scar-prosthetic fracture, infection, component failure or loosening, nerve injury, blood vessel injury, loss of leg or life. They understand revision surgery may take longer and may require more extensive exposure and potentially osteotomies and that this may lead to additional morbidity or mortality. Despite these risks, the patient would like to proceed with surgical planning for revision right total knee replacement. Today, we will initiate the pre-surgical process including nasal MRSA screening, scheduling an appointment for [facility] and the potential surgical date, and reviewing and signing the consent forms. I have reviewed the findings of my clinical staff below and agree with their assessment. Vitals: 01/16/22 1312 Temp: 97.6 degrees F (36.4 degrees C) TempSrc: Temporal Weight: 90.6 kg (199 lb 12.8 oz) Height: 1.651 m (5' 5 ) Pain Recent Labs Lab Results Component Value Date CRP 14.7 (H) 12/06/2021 Lab Results Component Value Date SEDRATE 12 12/06/2021 Lab Results Component Value Date WBC 7.6 12/06/2021 HGB 11.9 (L) 12/06/2021 HCT 35.2 (L) 12/06/2021 PLATELET 257 12/06/2021 MCV 89.4 12/06/2021 Past Medical History: Diagnosis Date Arthritis Diabetes mellitus Essential hypertension, benign GERD (gastroesophageal reflux disease) Past Surgical History: Procedure Laterality Date KNEE REPLACEMENT Right 05/02/2019 Dr. Laly Camara KNEE REPLACEMENT Left 09/27/2018 Dr. Camara No family history on file. Social History Socioeconomic History Marital status: Tobacco Use Smoking status: Never Smoker Smokeless tobacco: Never Used Vaping Use Vaping Use: Never used Substance and Sexual Activity Alcohol use: Not Currently Drug use: Never Current Outpatient Medications: gliMEPIride 4 MG tablet, Take by mouth daily every morning. Takes 2 tablets every morning, Disp: , Rfl: Januvia 100 MG tablet, Take 100 mg by mouth daily., Disp: , Rfl: losartan 100 MG tablet, Take 100 mg by mouth daily., Disp: , Rfl: meloxicam 7.5 MG tablet, Take 7.5 mg by mouth daily., Disp: , Rfl: metFORMIN 1000 MG tablet, Take 1,000 mg by mouth 2 times daily., Disp: , Rfl: omeprazole [address] capsule, Take 20 mg by mouth daily., Disp: , Rfl: amoxicillin 500 MG capsule, Prior to dental work. (Patient not taking: Reported on 01/16/2022), Disp: , Rfl: Allergies Allergen Reactions Actos [Pioglitazone] Itching Sulfa Antibiotics Hives Diclofenac Nausea Only Tramadol Itching Lisinopril Cough documented in this encounter [facility] 01-16-2022 History of Presen t illness Narrative Associated Order(s): LARGE JOINT/BURSA INJECTION AND/OR ASPIRATION: R hip joint Post-Procedure Diagnose(s): Primary localized osteoarthritis of right hip Chief Complaint Patient presents with Right Hip - Pain, Follow-up Pain Radiation To: Some groin pain from the hip Pain Duration: 6 months Pain Frequency: intermittent, frequent Pain Quality: aching, dull, other (see comments) (Stiffness) Factors That Aggravate Pain: activity (Sit to stand, stairs, and at night) Factors That Relieve Pain: rest, medications, over the counter (OTC) (tylenol, knee brace) Patient presents in follow-up with concerns for hip related symptoms. Worsening of symptoms lately. IMPRESSION/PLAN: Pertinent medical office records and imaging studies reviewed. Xrays from 10/10/2021 demonstrated moderate right hip degenerative changes. Continue current conservative treatment. Medication management: Meloxicam as prescribed. Advised caution with this due to GI upset. Corticosteroid injection performed today. See procedure note. We have discussed additional workup and treatment that could be needed. Follow-up in 3 months for re-evaluation. There were no vitals taken for this visit. LARGE JOINT/BURSA INJECTION AND/OR ASPIRATION: R hip joint Date/Time: 01/16/2022 11:00 AM Supporting Documentation Indications: pain Procedure Details: Location: hip - R hip joint Local Anesthetic: lidocaine 1% Total Local Anesthetic: 3 mLs Guidance: ultrasound Images were saved electronically. Needle size: 22 G Medication Verification: I have personally verified and performed the final check of the medication(s) used in this procedure prior to administration. The following items were included during the verification process for medication(s) administered: drug name, strength, volume, expiration, physical integrity and appearance of the medication(s). Medications administered: 1 mL triamcinolone 40 MG/ML Patient tolerance: patient tolerated the procedure well with no immediate complications Consent: Consent was obtained prior to the procedure after discussion of the risks, benefits and alternatives, and expected outcomes were discussed with the patient. The possibilities of reaction to medication, bleeding, infection, the need for additional procedures, failure to diagnosis a condition, and creating a complication requiring operation were discussed with the patient. The patient concurred with the proposed plan, giving consent. Preparation: Patient was prepped in the usual sterile fashion. *Portions of this note may have been created with [employer] or other software which leads to grammatical and typographical errors which are not insurance representative of the intent with my spoken words. Chief Complaint Patient presents with Right Hip - Pain, Follow-up Pain Radiation To: Some groin pain from the hip Pain Duration: 6 months Pain Frequency: intermittent, frequent Pain Quality: aching, dull, other (see comments) (Stiffness) Factors That Aggravate Pain: activity (Sit to stand, stairs, and at night) Factors That Relieve Pain: rest, medications, over the counter (OTC) (tylenol, knee brace) Originally referred by Nicole for hip pain Patient presents in follow-up with concerns for hip related symptoms. Worsening of symptoms lately. IMPRESSION/PLAN: Pertinent medical office records and imaging studies reviewed. Xrays from 10/10/2021 demonstrated moderate right hip degenerative changes. Continue current conservative treatment. Medication management: Meloxicam as prescribed. Advised caution with this due to GI upset. Corticosteroid injection performed today. See procedure note. We have discussed additional workup and treatment that could be needed. Of note, patient also has a h/o b/l TKA in 2019 ([facility]). She did see Dr. Serrato at my recommendation. I reviewed his office note from today and it looks like there will be a plan for revision R TKA. Follow-up in 3 months for re-evaluation. There were no vitals taken for this visit. LARGE JOINT/BURSA INJECTION AND/OR ASPIRATION: R hip joint Date/Time: 01/16/2022 11:00 AM Supporting Documentation Indications: pain Procedure Details: Location: hip - R hip joint Local Anesthetic: lidocaine 1% Total Local Anesthetic: 3 mLs Guidance: ultrasound Images were saved electronically. Needle size: 22 G Medication Verification: I have personally verified and performed the final check of the medication(s) used in this procedure prior to administration. The following items were included during the verification process for medication(s) administered: drug name, strength, volume, expiration, physical integrity and appearance of the medication(s). Medications administered: 1 mL triamcinolone 40 MG/ML Patient tolerance: patient tolerated the procedure well with no immediate complications Consent: Consent was obtained prior to the procedure after discussion of the risks, benefits and alternatives, and expected outcomes were discussed with the patient. The possibilities of reaction to medication, bleeding, infection, the need for additional procedures, failure to diagnosis a condition, and creating a complication requiring operation were discussed with the patient. The patient concurred with the proposed plan, giving consent. Preparation: Patient was prepped in the usual sterile fashion. *Portions of this note may have been created with [employer] or other software which leads to grammatical and typographical errors which are not insurance representative of the intent with my spoken words. Clinical assistant account executive/AT/MA was acting as a scribe today for this note. I have performed all essential components of the history, and physical exam. I have confirmed the diagnosis and developed a plan of care at this visit. I have reviewed the note following the visit and have made edits as appropriate to my evaluation and plan of care. Rafael Hernandez DO documented in this encounter [facility] 12-06-2021 History of Presen t illness Narrative Chief Complaint Patient presents with Right Hip - Pain Pain Radiation To: occ. groin Pain Duration: 5-6 mo. Pain Frequency: intermittent Pain Quality: aching, sharp Factors That Aggravate Pain: activity Factors That Relieve Pain: rest Patient presents in follow-up with concerns for right hip related symptoms. Right knee corticosteroid injection on 10/25/2021 had helped some with her hip pain. Worsening of symptoms lately towards the right knee as well as the low back. History of bilateral TKA in [address] Camara at [facility]. IMPRESSION/PLAN: Pertinent medical office records and imaging studies reviewed. Xrays from 10/10/2021 demonstrated moderate right hip degenerative changes. Continue current conservative treatment. Medication management: Meloxicam as prescribed. Advised caution with this due to GI upset. We have discussed additional workup and treatment that could be needed. Bone scan of the right knee needed to evaluate for loosening or possible infection of right TKA. ESR, CRP, CBC ordered today as well. Follow-up in 6 weeks. Visit Vitals Temp 97.9 F (36.6 C) (Temporal) Ht 1.651 m (5' 5 ) Wt 93.6 kg (206 lb 6.4 oz) BMI 34.35 kg/m *Portions of this note may have been created with [employer] or other software which leads to grammatical and typographical errors which are not insurance representative of the intent with my spoken words. Chief Complaint Patient presents with Right Hip - Pain Pain Radiation To: occ. groin Pain Duration: 5-6 mo. Pain Frequency: intermittent Pain Quality: aching, sharp Factors That Aggravate Pain: activity Factors That Relieve Pain: rest Originally referred here by Dr. Serrato. Patient presents in follow-up with concerns for right hip related symptoms. Right hip corticosteroid injection on 10/25/2021 had helped some with her hip pain. Worsening of symptoms lately towards the right knee as well as the low back. History of bilateral TKA in [address] Camara at [facility]. IMPRESSION/PLAN: Pertinent medical office records and imaging studies reviewed. Xrays from 10/10/2021 demonstrated moderate right hip degenerative changes. Continue current conservative treatment. Medication management: Meloxicam as prescribed. Advised caution with this due to GI upset. We have discussed additional workup and treatment that could be needed. Bone scan of the right knee needed to evaluate for loosening or possible infection of right TKA. ESR, CRP, CBC ordered today as well. Will try to arrange for bone scan to be done close to her home at [facility]. Follow-up in 6 weeks. Visit Vitals Temp 97.9 F (36.6 C) (Temporal) Ht 1.651 m (5' 5 ) Wt 93.6 kg (206 lb 6.4 oz) BMI 34.35 kg/m *Portions of this note may have been created with [employer] or other software which leads to grammatical and typographical errors which are not insurance representative of the intent with my spoken words. Clinical assistant account executive/AT/MA was acting as a scribe today for this note. I have performed all essential components of the history, and physical exam. I have confirmed the diagnosis and developed a plan of care at this visit. I have reviewed the note following the visit and have made edits as appropriate to my evaluation and plan of care. Rafael Hernandez DO documented in this encounter [facility] 10-25-2021 History of Presen t illness Narrative Associated Order(s): LARGE JOINT/BURSA INJECTION AND/OR ASPIRATION: R hip joint Post-Procedure Diagnose(s): Primary localized osteoarthritis of right hip Chief Complaint Patient presents with Right Hip - Pain Pain Radiation To: low back, groin Pain Duration: 4 mo. off and on Pain Frequency: intermittent Pain Quality: sharp Factors That Aggravate Pain: activity Factors That Relieve Pain: heat, medications, over the counter (OTC), rest Patient presents as a referral from Dr Serrato with concerns for hip related symptoms. She has had B/L TKA in 2019. IMPRESSION/PLAN: Pertinent medical office records and imaging studies reviewed. Xrays from 10-10-01 reviewed and interpreted independently by me. These demonstrated moderate degenerative changes. Pt describes that she got B/L hip injections in the past and it seems like they were trochanteric injections. Ddx discussed. Continue current conservative treatment. PT has been completed along with dry needling and iontophoresis. Medication management: Meloxicam as previously prescribed with caution due to GI issues. Corticosteroid injection performed today to the right hip. See procedure note. We have discussed additional workup and treatment that could be needed. Follow-up in 3 months for re-evaluation. Bilateral hips examined today. INSPECTION: No swelling. No ecchymosis. GAIT: Non-antalgic. PALPATION: No tenderness. No tenderness at trochanteric bursa. ROM: Limited AROM in IR on right. STRENGTH: 5/5 RESHMA: Neg. FADIR: Neg. Visit Vitals Temp 97.7 F (36.5 C) (Temporal) Ht 1.651 m (5' 5 ) Wt 91 kg (200 lb 9.6 oz) BMI 33.38 kg/m LARGE JOINT/BURSA INJECTION AND/OR ASPIRATION: R hip joint Date/Time: 10/25/2021 11:30 AM Supporting Documentation Indications: pain Procedure Details: Location: hip - R hip joint Guidance: ultrasound Images were saved electronically. Needle size: 22 G Medication Verification: I have personally verified and performed the final check of the medication(s) used in this procedure prior to administration. The following items were included during the verification process for medication(s) administered: drug name, strength, volume, expiration, physical integrity and appearance of the medication(s). Medications administered: 3 mL lidocaine 10 mg/mL; 1 mL triamcinolone 40 MG/ML Patient tolerance: patient tolerated the procedure well with no immediate complications Consent: Consent was obtained prior to the procedure after discussion of the risks, benefits and alternatives, and expected outcomes were discussed with the patient. The possibilities of reaction to medication, bleeding, infection, the need for additional procedures, failure to diagnosis a condition, and creating a complication requiring operation were discussed with the patient. The patient concurred with the proposed plan, giving consent. Preparation: Patient was prepped in the usual sterile fashion. The patient was prepped with alcohol and Chloraprep. *Portions of this note may have been created with [employer] or other software which leads to grammatical and typographical errors which are not insurance representative of the intent with my spoken words. Chief Complaint Patient presents with Right Hip - Pain Pain Radiation To: low back, groin Pain Duration: 4 mo. off and on Pain Frequency: intermittent Pain Quality: sharp Factors That Aggravate Pain: activity Factors That Relieve Pain: heat, medications, over the counter (OTC), rest Patient presents as a referral from Dr Serrato with concerns for hip related symptoms. She has had B/L TKA in [address] Camara at [facility]. Pt describes that she got B/L hip injections in the past and it seems like they were trochanteric injections. H/o DM. BG controlled. IMPRESSION/PLAN: Pertinent medical office records and imaging studies reviewed. Xrays from 10-10-01 reviewed and interpreted independently by me. These demonstrated moderate degenerative changes of the R hip. Ddx discussed. Continue current conservative treatment. PT has been completed along with dry needling and iontophoresis. Medication management: Meloxicam as previously prescribed with caution due to GI issues. Corticosteroid injection performed today to the right hip. See procedure note. We have discussed additional workup and treatment that could be needed. Follow-up in 6-8w for re-evaluation. Bilateral hips examined today. INSPECTION: No swelling. No ecchymosis. GAIT: Non-antalgic. PALPATION: No tenderness. No tenderness at trochanteric bursa. ROM: Limited AROM in IR on right. STRENGTH: 5/5 RESHMA: Neg. FADIR: Neg. Visit Vitals Temp 97.7 F (36.5 C) (Temporal) Ht 1.651 m (5' 5 ) Wt 91 kg (200 lb 9.6 oz) BMI 33.38 kg/m LARGE JOINT/BURSA INJECTION AND/OR ASPIRATION: R hip joint Date/Time: 10/25/2021 11:30 AM Supporting Documentation Indications: pain Procedure Details: Location: hip - R hip joint Guidance: ultrasound Images were saved electronically. Needle size: 22 G Medication Verification: I have personally verified and performed the final check of the medication(s) used in this procedure prior to administration. The following items were included during the verification process for medication(s) administered: drug name, strength, volume, expiration, physical integrity and appearance of the medication(s). Medications administered: 3 mL lidocaine 10 mg/mL; 1 mL triamcinolone 40 MG/ML Patient tolerance: patient tolerated the procedure well with no immediate complications Consent: Consent was obtained prior to the procedure after discussion of the risks, benefits and alternatives, and expected outcomes were discussed with the patient. The possibilities of reaction to medication, bleeding, infection, the need for additional procedures, failure to diagnosis a condition, and creating a complication requiring operation were discussed with the patient. The patient concurred with the proposed plan, giving consent. Preparation: Patient was prepped in the usual sterile fashion. The patient was prepped with alcohol and Chloraprep. *Portions of this note may have been created with [employer] or other software which leads to grammatical and typographical errors which are not insurance representative of the intent with my spoken words. Clinical assistant account executive/AT/MA was acting as a scribe today for this note. I have performed all essential components of the history, and physical exam. I have confirmed the diagnosis and developed a plan of care at this visit. I have reviewed the note following the visit and have made edits as appropriate to my evaluation and plan of care. Rafael Hernandez DO documented in this encounter [facility] 10-10-2021 History of Presen t illness Narrative Ortho Nurse - Patient Intake Room#: 2---Visit today for bilateral knee pain. She had bilateral TKA. Her right was done 05-02-2019 and left 09-27-2018. Dr. Camara from [place]. She has had pain in her knees since surgery. The right is worse then the left. When she stands and goes up and down stairs the pain is worse. Her pain today is a 4. She has had her hips examined and back in the past. She has also done PT and wears a brace at times for the right knee. Date: 10/10/2021 1:17 PM Patient: Katt Rahman MR#: [id number] : 1960 Age: 60 y.o. Referring Physician: Self, Self Insurance: Payor: [employer] / Plan: MMO / Product Type: *No Product type* / Chief Complaint Patient presents with Left Knee - Pain, New Patient Right Knee - Pain, New Patient There were no vitals taken for this visit. Pain Presence of Pain: complains of pain/discomfort Pain Location: knee, left, knee, right Select Pain Scale: DVPRS (Defense and Veterans Pain Rating Scale) (Adult-Cognitively Intact) Pain Location: knee, left, knee, right Select Pain Scale: DVPRS (Defense and Veterans Pain Rating Scale) (Adult-Cognitively Intact) Recent Labs No results found for: CRP No results found for: SEDRATE No results found for: WBC, WBCCOUNT, WBCFETAL, HGB, HCT, PLATELET, MCV History Past Medical History: Diagnosis Date Arthritis Diabetes mellitus Essential hypertension, benign GERD (gastroesophageal reflux disease) Past Surgical History: Procedure Laterality Date KNEE REPLACEMENT Right 05/02/2019 Dr. Laly Camara KNEE REPLACEMENT Left 09/27/2018 Dr. Camara Family History: Her family history is not on file. Social History: Her reports that she has never smoked. She has never used smokeless tobacco. She reports previous alcohol use. She reports that she does not use drugs. Additional Social History Y N Notes Do you live alone? [] [x] Who lives with you: and daughter Do you have children? [x] [] How many: 2 Do you currently work? [x] [] What type of work do you do: Do you have stairs in the home? [x] [] How many do you have to climb to enter your home: 5 What services do you currently receive at home? [] [x] Name: Do you have transportation to go to outpatient therapy if needed? [x] [] What Equipment do you have at home? [x] [] [x]Walker, []Crutches, []Commode Chair, [x]Shower []Chair, [x]cane, []bracing Are you followed by a pipe wrapping machine operator? [] [x] Name: Are you followed by pain management? [] [x] Name: Are you followed by any other specialists? [] [x] Name: Outpatient Medications Prior to Visit Medication Sig Dispense Refill gliMEPIride 4 MG tablet Take by mouth daily every morning. Takes 2 tablets every morning Januvia 100 MG tablet Take 100 mg by mouth daily. losartan 100 MG tablet Take 100 mg by mouth daily. meloxicam 7.5 MG tablet Take 7.5 mg by mouth daily. metFORMIN 1000 MG tablet Take 1,000 mg by mouth 2 times daily. omeprazole [address] capsule Take 20 mg by mouth daily. No facility-administered medications prior to visit. Allergies: She is allergic to actos [pioglitazone], sulfa antibiotics, diclofenac, tramadol, and lisinopril. Y N Are you allergic to any metals? [] [x] If yes, what metals: Review of Systems System Y N Symptoms Constitutional [] [x] Weight Loss [] [x] Weight Gain [] [x] Chronic Fever [] [x] Insomnia Eyes [] [x] Resent Vision Change [] [x] Cataracts [] [x] Glaucoma [] [x] Any Hx of Metal Fragments in the Eye ENT [] [x] Loss of hearing [] [x] Hearing Aids [] [x] Seasonal Allergies [] [x] Dental Issues Cardiovascular [] [x] Chest Pain [] [x] Angina [] [x] Stent [x] [] Hypertension [] [x] Heart Murmur [] [x] Irregular Pulse [] [x] Pacemaker [] [x] Palpitations [] [x] High cholesteral Respiratory [] [x] Wheezing [] [x] Shortness of Breath [] [x] Pneumonia [] [x] Bronchitis [] [x] Sleep Apnea [] [x] COPD [] [x] Date/ LOC of last CXR: Gastrointestinal [x] [] Heartburn [x] [] Indigestion [] [x] Constipation [x] [] Ulcer [] [x] GI Stomach Bleed [] [x] Diarrhea [] [x] Colon Cancer [x] [] Acid Reflux [] [x] Blood in Stools Musculoskeletal [x] [] Arthritis [] [x] Muscle Weakness [x] [] Joint Pain [x] [] Back Pain [] [x] Fibromyalgia [] [x] Bone Infection [] [x] Swelling - Multiple Joints [] [x] Reflex Sympathetic Dystrophy Skin [] [x] Chronic Rash [] [x] Ulcers [] [x] Eczema [] [x] Psoriasis [] [x] Skin Cancer [] [x] Melanoma Neurologic [] [x] Numbness [] [x] Weakness or loss of sensation in arms or legs [] [x] Leg Pain / Sciatica [] [x] Headaches [] [x] Loss of bowel or bladder control Psychiatric [] [x] Anxiety [] [x] Claustrophobia [] [x] Other Psychiatric Problems Hematologic [] [x] Easy Bruising [] [x] Easy Bleeding [] [x] Blood Transfusion Date: Endocrine [] [x] Hypothyroid [] [x] Hyperthyroid [] [x] Hot Flashes [] [x] Hormone Replacement [] [x] Prednisone Use Does pt have dentures? no HPI: Patient is here today to be evaluated for bilateral knee pain. She is a pleasant 60 y.o. female. Primary complaint is pain and discomfort. She has experienced a progressive decline in physical function and quality of life secondary to the discomfort in the bilateral knee. Her right TKA was done 05-02-2019 and left TKA on 09-27-[address] Camara. The right is more symptomatic than the left. The more she is on it, the more it hurts. She wears a brace at times for the right knee and has done physical therapy She states she has also been told her hips are arthritic and may be contributing. Her pain is a 4/10 upon exam today. She is here today for evaluation and to determine treatment options. PHYSICAL EXAM: This is an alert, oriented, and age-appropriate female. She is in no distress. Pleasant and cooperative. EXTREMITIES: The lower extremities have no gross deformities. Normal stability. Skin Intact. 5/5 motor. Intact sensation. Normal neurovascular status. Normal coordination. Range of motion upon exam today is 0-120 for the bilateral knees. 8-10mm of opening to varus and valgus stress for the right knee. Right hip demonstrates pain with rotation. Contralateral leg has normal alignment. Full motion. No pain. No impingement. No instability. IMAGING: Plain film radiographs were reviewed. She has cemented bilateral posterior stablized total knee arthroplasty in reasonable position and alignment with moderate OA of hips. Long standing films demonstrate fairly neutral recreation of bilateral knees. IMPRESSION: 1.) Symptomatic right hip arthritis 2.) Flexion and mid-flexion instability, right prosthetic knee. PLAN: I have reviewed my findings with the patient. We have gone over the diagnosis and the treatment. We reviewed her imaging and physical exam findings. We discussed her instability of the right knee felt on exam. We also discussed her moderately arthritic hips and the possibility that she is experiencing referred pain. At this time, I would like to rule the hip in or out a contributory source. I recommend a intraarticular right hip injection with Dr. Hernandez. She is in agreement. I will make the referral today. I also encouraged her to keep journal of symptoms following the hip injection. I will see her back pending success of hip injection. All questions were answered. She has no further questions. Next appointment will be left open to her. I have reviewed the findings of my clinical staff below and agree with their assessment. There were no vitals filed for this visit. Pain Presence of Pain: complains of pain/discomfort Pain Location: knee, left, knee, right Select Pain Scale: DVPRS (Defense and Veterans Pain Rating Scale) (Adult-Cognitively Intact) Pain Location: knee, left, knee, right Select Pain Scale: DVPRS (Defense and Veterans Pain Rating Scale) (Adult-Cognitively Intact) Recent Labs No results found for: CRP No results found for: SEDRATE No results found for: WBC, WBCCOUNT, WBCFETAL, HGB, HCT, PLATELET, MCV Past Medical History: Diagnosis Date Arthritis Diabetes mellitus Essential hypertension, benign GERD (gastroesophageal reflux disease) Past Surgical History: Procedure Laterality Date KNEE REPLACEMENT Right 05/02/2019 Dr. Laly Camara KNEE REPLACEMENT Left 09/27/2018 Dr. Camara No family history on file. Social History Socioeconomic History Marital status: Tobacco Use Smoking status: Never Smoker Smokeless tobacco: Never Used Vaping Use Vaping Use: Never used Substance and Sexual Activity Alcohol use: Not Currently Drug use: Never Current Outpatient Medications: gliMEPIride 4 MG tablet, Take by mouth daily every morning. Takes 2 tablets every morning, Disp: , Rfl: Januvia 100 MG tablet, Take 100 mg by mouth daily., Disp: , Rfl: losartan 100 MG tablet, Take 100 mg by mouth daily., Disp: , Rfl: meloxicam 7.5 MG tablet, Take 7.5 mg by mouth daily., Disp: , Rfl: metFORMIN 1000 MG tablet, Take 1,000 mg by mouth 2 times daily., Disp: , Rfl: omeprazole [address] capsule, Take 20 mg by mouth daily., Disp: , Rfl: Allergies Allergen Reactions Actos [Pioglitazone] Itching Sulfa Antibiotics Hives Diclofenac Nausea Only Tramadol Itching Lisinopril Cough documented in this encounter [facility] 06-05-2021 Evaluation note Encounter Date Diagnosis Assessment Notes Jun, History of total right knee replacement (ICD-10 - Z96.651) 01 Dec, 2021 History of left knee replacement (ICD-10 - Z96.652) Jun, Primary osteoarthritis of both hips (ICD-10 - M16.0) Based on location of pain and exam findings we will proceed with a intra articular bilateral hip injection. Risks and benefits of procedure explained to patient; patient verbalizes sam burnett Jun, Other 1. I had a long discussion with the patient regarding the etiology of her right knee pain. I have no suspicion for any sort of infection. There is nothing on the x-ray to suggest aseptic loosening of any of the components. There could be some slight sclerosis noted in the patella that could be consistent with AVN of the patella especially given her symptoms are located mainly over the patella. However, she does have some fair amount of arthritis in the right hip and this could also be the pain generator referring pain to the right knee. I did not see a preop right hip or pelvis x-ray. 2. Ultimately recommended that the patient see Dr. Yuriy Stephenson for a right hip intra-articular corticosteroid injection. Unable to recommend any oral anti-inflammator ies secondary to her ulcer history. I did recommend that she take Tylenol up to 3000 mg a day for pain as needed. 3. Follow-up 6 weeks after this injection. If she does not get any knee pain relief with this hip injection, then we could consider trying to get her fitted for a brace that could mimic the KT tape. If this ends up being a patellar avascular necrosis I have informed her there is not a great treatment option for this other than symptomatic. At some point down the road we also could consider doing an injection within the knee joint for diagnostic purposes, possibly just a lidocaine injection. [facility] Other 11-02-2021 Evaluation note* Encounter Date Diagnosis Assessment Notes Treatment Notes Treatment Clinical Notes May, Primary osteoarthritis of right knee (ICD-10 - M17.11) May, History of total right knee replacement (ICD-10 - Z96.651) Extensive discussion about current condition and treatment options available. Due to patients diabetes we will not prescribe an oral steriod. Patient will continue use of Voltaren Gel. Continue to work on gaud strengthening and motion exercises. Continue physical therapy. If pain persists we will refer patient to Dr. Rosetta Stephenson for Genicular blocks. May, Primary osteoarthritis of left knee (ICD-10 - M17.12) May, Status post total left knee replacement (ICD-10 - Z96.652) [facility] Other 10-05-2021 Evaluation note* Encounter Date Diagnosis Assessment Notes Treatment Notes Treatment Clinical Notes Apr, Primary osteoarthritis of right knee (ICD-10 - M17.11) Apr, History of total right knee replacement (ICD-10 - Z96.651) Xrays reviewed patient. Discussed that there is no concerns of infetion or loosening of componets. Today we gave patient a script for formal phyiscal therapy for strength exercise. Adviseddpatient to discontinue meloxicam due to stomach issues. Discussed that we can prescribe celebrex in the future if she wishes. To call with questions or concerns. Apr, Primary osteoarthritis of left knee (ICD-10 - M17.12) Apr, Status post total left knee replacement (ICD-10 - Z96.652) [facility] Other 07-08-2021 NoteChief Complaint referral for EGD HPI Staff 60 year old female presents on consultation from Dr. Verdin for possible gastric ulcer. Several week history and nausea and vomiting. CT ABD 12/26/20 with suspected ulcer. RUQ US 12/24/20, normal. Has been taking Carafate and Protonix for the past two weeks with complete resolution of symptoms. History of Present Illness 60 yo female with h/o DM II, hyperlipidemia, arthritis, referred for possible EGD; patient had upper abdominal pain and bloating 2 weeks ago, admitted to [facility]; ct scan of abdominal with evidence of gastric ulcer with inflammation; images reviewed; has been on Protonix andCcarafate with improvement in symptoms; patient did have one melanotic stool 2 weeks ago, none since; some initial N/V which hasresolved; has been taking Mobic daily; no asa; only abdominal operation excision of ovarian cyst; denies tobacco or alcohol use. no fmhx of GI malignancy or IBD. Review of Systems PHQ Score Initial Depression Screen Score: 0 ROS - Provider Constitutional: no fever, no sweats, no weight loss. Eyes: no glasses, no blurred vision, no visual loss. ENMT: no dentures, no hoarseness, no swallowing difficulties, yes hearing loss, no ear infection(s), no nose bleeds. Cardiovascular: normal blood pressure, no chest pain, regular heartbeat, no heart murmur. Respiratory: no shortness of breath, no cough, no asthma, no wheezing. Gastrointestinal: no nausea, no vomiting, no diarrhea, no constipation, no blood in stool, no change in bowel habits, no abdominal pain, no hepatitis. Genitourinary: no kidney stones, no urine infection, no dysuria. Musculoskeletal: moderate pain, no weakness. Skin: no changing moles, no rash, no skin lumps. Neurologic: no seizures, no epilepsy, no headache. Psychiatric: no emotional or psychiatric problem. Heme/Lymph: no bleeding problems, no anemia, no blood clots, no transfusions. Allergy/Immunologic: no swollen lymph nodes/glands, no IV drug abuse. Other: Additional ROS info: Except as noted in the above Review of Systems and in the History of Present Illness, all other systems have been reviewed and are negative or noncontributory. Physical Exam Vitals & Measurements T: 36.2 ?C (Temporal Artery) HR: 68(Peripheral) RR: 16 BP: 124/78 HT: 165.1 cm HT: 165.1 cm WT: 83.0 kg WT: 83.0 kg BMI: 30.45 HEENT: normal conjunctiva, sclera clear, no scleral icterus, EOM intact, PERRLA, oral mucosa moist without lesions. Neck: trachea midline, no mass, symmetric, no thyromegaly or nodules, no adenopathy Respiratory: lungs CTA, respirations non labored. Cardiovascular: regular rate and rhythm, no murmur, no pedal edema or varicosities. Gastrointestinal: obese, soft, non distended, mild tenderness, epigastrium, no masses, no palpable hernias, diastasis recti no, no hepatosplenomegaly; normal bs Lymphatic: no cervical adenopathy, no axillary adenopathy, no inguinal adenopathy. Musculoskeletal: normal gait, digits and nails without infection, nodes, cyanosis, clubbing. Skin: no rashes, no lesions, no ulcers, no subcutaneous nodules, induration. Psychiatric/Neuro: oriented to time, place, person, judgement normal, affect appropriate for age, insight intact, no focal deficits. Tests: labs reviewed, x-rays reviewed, review of old records completed, Discussed surgical options, risks, and possible complications with patient. Assessment/Plan 1. Abnormal abdominal CT scan (R93.5: Abnormal findings on diagnostic imaging of other abdominal regions, including retroperitoneum) plan EGD with anesthesia for further evaluation, informed consent obtained; continue Protonix and Carafate; discontinue Mobic. call sooner if problems/questions. 2. Acute gastric ulcer with hemorrhage (K25.0: Acute gastric ulcer with hemorrhage) see# 1 3. 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-steroidal anti- inflammatories (NSAID)) see # 1 Follow-up No qualifying data available Patient Education Upper Endoscopy, Adult Problem List/Past Medical History Ongoing Abnormal abdominal CT scan Anxiety BMI 30.0-30.9,adult Capillary hemangioma Cervical disc disease Colon, diverticulosis Diabetes mellitus Gastric ulcer with hemorrhage but without obstruction Hearing loss Hyperlipidemia NSAID long-term use Occult blood positive stool Osteoarthritis Vitamin D deficiency Historical BMI 32.0-32.9,adult Closed fracture lumbar vertebra Kidney stone Shingles Procedure/Surgical History Colonoscopy (03/14/2019), Arthroplasty of the knee (09/27/2018), Removal of ovarian cyst. Medications Amaryl 4 mg Tab, 8 mg= 2 tab(s), Oral, BID Glucophage XR 500 mg Tab-ER, 1000 mg= 2 tab(s), Oral, BID Januvia 100 mg Tab, 100 mg= 1 tab(s), Oral, Daily losartan 100 mg Tab, 100 mg= 1 tab(s), Oral, Daily Mobic 7.5 mg Tab, 7.5 mg= 1 tab(s), Oral, Daily Protonix 40 mg Tab-DR, 40 mg= 1 tab(s), Oral, Daily simvastatin 20 mg Tab, 20 mg= 1 tab(s), Oral, Once a day (a (more content not included)...[facility] HospitalComment on above:Result Comment: Electronically Signed By: MIRIAM BRONSON, Tan Gross\Date and Time Signed: 01/10/21 16:27 [id number] NoteGastroenterology Upper Endoscopy, Adult Upper endoscopy is a procedure to look inside the upper GI (gastrointestinal) tract. The upper GI tract is made up of: ? The part of the body that moves food from your mouth to your stomach (esophagus). ? The stomach. ? The first part of your small intestine (duodenum). This procedure is also called esophagogastroduodenoscopy (EGD) or gastroscopy. In this procedure, your health care provider passes a thin, flexible tube (endoscope) through your mouth and down your esophagus into your stomach. A small camera is attached to the end of the tube. Images from the camera appear on a monitor in the exam room. During this procedure, your health care provider may also remove a small piece of tissue to be sent to a lab and examined under a microscope (biopsy). Your health care provider may do an upper endoscopy to diagnose cancers of the upper GI tract. You may also have this procedure to find the cause of other conditions, such as: ? Stomach pain. ? Heartburn. ? Pain or problems when swallowing. ? Nausea and vomiting. ? Stomach bleeding. ? Stomach ulcers. Tell a health care provider about: ? Any allergies you have. ? All medicines you are taking, including vitamins, herbs, eye drops, creams, and zykx-gpg-rkzpbly medicines. ? Any problems you or family members have had with anesthetic medicines. ? Any blood disorders you have. ? Any surgeries you have had. ? Any medical conditions you have. ? Whether you are or may be . What are the risks? Generally, this is a safe procedure. However, problems may occur, including: ? Infection. ? Bleeding. ? Allergic reactions to medicines. ? A tear or hole (perforation) in the esophagus, stomach, or duodenum. What happens before the procedure? Staying hydrated Follow instructions from your health care provider about hydration, which may include: ? Up to 2 hours before the procedure ? you may continue to drink clear liquids, such as water, clear fruit juice, black coffee, and plain tea. Eating and drinking restrictions Follow instructions from your health care provider about eating and drinking, which may include: ? 8 hours before the procedure ? stop eating heavy meals or foods, such as meat, fried foods, or fatty foods. ? 6 hours before the procedure ? stop eating light meals or foods, such as toast or cereal. ? 6 hours before the procedure ? stop drinking milk or drinks that contain milk. ? 2 hours before the procedure ? stop drinking clear liquids. Medicines Ask your health care provider about: ? Changing or stopping your regular medicines. This is especially important if you are taking diabetes medicines or blood thinners. ? Taking medicines such as aspirin and ibuprofen. These medicines can thin your blood. Do not take these medicines unless your health care provider tells you to take them. ? Taking ebnx-xgf-oxxuttm medicines, vitamins, herbs, and supplements. General instructions ? Plan to have someone take you home from the hospital or clinic. ? If you will be going home right after the procedure, plan to have someone with you for 24 hours. ? Ask your health care provider what steps will be taken to help prevent infection. What happens during the procedure? ? An IV will be inserted into one of your veins. ? You may be given one or more of the following: ? A medicine to help you relax (sedative). ? A medicine to numb the throat (local anesthetic). ? You will lie on your left side on an exam table. ? Your health care provider will pass the endoscope through your mouth and down your esophagus. ? Your health care provider will use the scope to check the inside of your esophagus, stomach, and duodenum. Biopsies may be taken. ? The endoscope will be removed. The procedure may vary among health care providers and hospitals. What happens after the procedure? ? Your blood pressure, heart rate, breathing rate, and blood oxygen level will be monitored until you leave the hospital or clinic. ? Do not drive for 24 hours if you were given a sedative during your procedure. ? When your throat is no longer numb, you may be given some fluids to drink. ? It is up to you to get the results of your procedure. Ask your health care provider, or the department that is doing the procedure, when your results will be ready. Summary ? Upper endoscopy is a procedure to look inside the upper GI tract. ? During the procedure, an IV will be inserted into one of your veins. You may be given a medicine to help you relax. ? A medicine will be used to numb your throat. ? The endoscope will be passed through your mouth and down your esophagus. This information is not intended to replace advice given to you by your health care provider. Make sure you discuss any questions you have with your health care provider. Document Released: 06/19/2001 [employer] (more content not included)...[facility] History general Narrative - Reported* Type Description Date Medical History diabetes Medical History high cholesterol Medical History ulcers Surgical History ovarian cyst removal Surgical History left TKA 09/2018 Surgical History RTKA 04/2019 Hospitalization History see above [facility] Other Evaluation note* Diagnosis Primary localized osteoarthritis of right hip- Primary Pain in prosthetic joint, initial encounter [facility]* Diagnosis Primary localized osteoarthritis of right hip- Primary documented in this encounter [facility]* Diagnosis Right hip pain- Primary Pain in joint, pelvic region and thigh 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, subsequent encounter documented in this encounter [facility] noteNo [facility] Other Evaluation note* Diagnosis Right hip pain- Primary Pain in joint, pelvic region and thigh Primary localized osteoarthritis of right hip documented in this encounter [facility]* Diagnosis Right knee pain, unspecified chronicity- Primary 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 [facility] Work Phone: Evaluation note* Diagnosis Hx of total knee arthroplasty, right- Primary documented in this encounter [facility] (narrative)* Consultation (Routine) - New Request Specialty Diagnoses / Procedures Referred By Elsy segal Referred To Contact [facility] Sports Diagnoses Primary localized osteoarthritis of right hip Kee Serrato MD [address] [place] [address] Rafael Hernandez DO [address] [place] [address] Referral ID Status Reason Start Date Expiration Date V isits Requested Visits Authorized [id number] New Request 10/10/2021 11/04/2022 1 1 * Diagnostic X-Ray (Routine) - Pending Review Specialty Diagnoses / Procedures Referred By Contac t Referred To Contact Diagnoses Pain in prosthetic joint, initial encounter Procedures XR KNEE RIGHT 3 VIEWS Kee Serrato MD [address] [place] [id number] Referral ID Status Reason Start Date Expiration Date V isits Requested Visits Authorized [id number] Pending Review 10/10/2021 11/04/2022 1 1 * Diagnostic X-Ray (Routine) - Pending Review Specialty Diagnoses / Procedures Referred By Contac t Referred To Contact Diagnoses Pain in prosthetic joint, initial encounter Procedures XR KNEE LEFT 3 VIEWS Kee Serrato MD [address] [place] [phone] Referral ID Status Reason Start Date Expiration Date V isits Requested Visits Authorized [id number] Pending Review 10/10/2021 11/04/2022 1 1 * Diagnostic X-Ray (Routine) - Pending Review Specialty Diagnoses / Procedures Referred By Contac t Referred To Contact Diagnoses Pain in prosthetic joint, initial encounter Procedures XR BONE LENGTH STUDY Kee Serrato MD [address] [place] [address] Referral ID Status Reason Start Date Expiration Date V isits Requested Visits Authorized [id number] Pending Review 10/10/2021 11/04/2022 1 1 [facility] Advance Directives No Advanced Directives Records Found Advance Directive Response Recorded Date/ Time Advance Directives No June 10:00am Latest Code Status on File Code Status Date Activated Date Inactivated Comments Full Code 03/04/2022 3:39 PM Latest Code Status on File Code Status Date Activated Date Inactivated Comments Full Code 03/04/2022 3:39 PM Chief Complaint and Reason for Visit Chief Complaint M17.11 Chief Complaint Right Knee Revision Assessments No Assessments Information Available Family History No Family History Records Found Relationship Condition Age at Onset Recorded Date/T sallie father Family history of co ronary artery bypass surgery Unknown Diabetes mellitus Unknown Arthritis Unknown Not Specified Macular degeneration Unknown Presence of cardiac pacemaker Unknown family member Arthritis Unknown Summary Purpose Reason for Referral Specialty Diagnoses / Procedures Referred By Contac t Referred To Contact Diagnoses 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, subsequent encounter Procedures NUC 3 PHASE LIMITED BONE SCAN [place] BONE IMAGING, 3 PHASE Rafael Hernandez DO [address] [place] [address] Referral ID Status Reason Start Date Expiration Date V isits Requested Visits Authorized [id number] New Request 12/06/2021 12/31/2022 2 2 Specialty Diagnoses / Procedures Referred By Contac t Referred To Contact Diagnoses Hx of total knee arthroplasty, right Procedures XR KNEE RIGHT 3 VIEWS Cynthia Durant, CHILDREN'S SERVICE WORKER-REHEATER [address] [place] [address] Referral ID Status Reason Start Date Expiration Date V isits Requested Visits Authorized [id number] New Request 03/14/2022 04/08/2023 1 1 Referral ID Status Reason Start Date Expiration Date V isits Requested Visits Authorized [id number] New Request 04/04/2022 04/29/2023 1 1 Specialty Diagnoses / Procedures Referred By Contac t Referred To Contact Diagnoses Hx of total knee arthroplasty, right Procedures XR KNEE RIGHT 3 VIEWS Kee Serrato MD [address] [place] [id number] Referral ID Status Reason Start Date Expiration Date V isits Requested Visits Authorized [id number] New Request 06/18/2022 07/13/2023 1 1 Specialty Diagnoses / Procedures Referred By Contac t Referred To Contact Diagnoses Hx of total knee arthroplasty, right Procedures XR BONE LENGTH STUDY Kee Serrato MD [address] [place] [address] Referral ID Status Reason Start Date Expiration Date V isits Requested Visits Authorized [id number] New Request 06/18/2022 07/13/2023 1 1 Referral ID Status Reason Start Date Expiration Date V isits Requested Visits Authorized [id number] Pending Review 03/03/2023 03/27/2024 1 1 Additional Source Comments INFORMATION SOURCE (unrecogn ized section and content) DATE CREATED AUTHOR 04/26/2021 Abraham Guer[facility] DATE CREATED AUTHOR AUTHOR'S ORGANIZ ATION 06/25/2022 [facility] DATE CREATED AUTHOR AUTHOR'S ORGANIZ ATION 11/03/2022 [facility] DATE CREATED AUTHOR AUTHOR'S ORGANIZ ATION 03/07/2023 [facility] Reason for Visit (unrecogniz ed section and content) Reason Comments Pain New Patient Reason Comments Pain Specialty Diagnoses / Procedures Referred By Contac t Referred To Contact [facility] Sports Diagnoses Primary localized osteoarthritis of right hip Kee Serrato MD [address] [place] [address] Rafael Hernandez DO [address] [place] [id number] Referral ID Status Reason Start Date Expiration Date V isits Requested Visits Authorized [id number] New Request 10/10/2021 11/04/2022 1 1 Reason Comments Pain Reason Comments Pain Follow-up Specialty Diagnoses / Procedures Referred By Contac t Referred To Contact Diagnoses Hx of total knee arthroplasty, right Procedures XR KNEE RIGHT 3 VIEWS Cynthia Durant APRN-BLAYNE [address] [place] [address] Referral ID Status Reason Start Date Expiration Date V isits Requested Visits Authorized [id number] New Request 03/14/2022 04/08/2023 1 1 Reason Comments Post Op Visit Reason Comments Follow-up Specialty Diagnoses / Procedures Referred By Contac t Referred To Contact Diagnoses Hx of total knee arthroplasty, right Procedures XR KNEE RIGHT 3 VIEWS Kee Serrato MD [address] [place] [id number] Referral ID Status Reason Start Date Expiration Date V isits Requested Visits Authorized [id number] New Request 06/18/2022 07/13/2023 1 1 Reason Comments Pain Post Op Visit Referral ID Status Reason Start Date Expiration Date V isits Requested Visits Authorized [id number] Pending Review 03/03/2023 03/27/2024 1 1 Care Teams (unrecognized sec tion and content) Teacher Instrumental Relationship Specialty Start Date End Date Rafa Verdin MD [address] [place] [address] [place] [address] PCP - General Family Medicine 10/10/21 Teacher Instrumental Relationship Specialty Start Date End Date Rafa Verdin MD [address] [place] [address] [place] [address] PCP - General Family Medicine 10/10/21 Teacher Instrumental Relationship Specialty Start Date End Date Rafa Verdin MD [address] [place] [address] [place] [address] PCP - General Family Medicine 10/10/21 Teacher Instrumental Relationship Specialty Start Date End Date Rafa Verdin MD [address] [facility] [place] [address] [place] [address] PCP - General Family Medicine 10/10/21 Teacher Instrumental Relationship Specialty Start Date End Date Rafa Verdin MD [address] [facility] [place] [address] [place] [address] PCP - General Family Medicine 10/10/21 Teacher Instrumental Relationship Specialty Start Date End Date Rafa Verdin MD [address] [facility] [place] [address] [place] [address] PCP - General Family Medicine 10/10/21 Teacher Instrumental Relationship Specialty Start Date End Date Rafa Verdin MD [address] [place] [address] [place] [address] PCP - General Family Medicine 10/10/21 Teacher Instrumental Relationship Specialty Start Date End Date Rafa Verdin MD [address] [place] [address] [place] [address] PCP - General Family Medicine 10/10/21 Team Status: Inactive Member Role Status Dates Rafa Verdin MD Primary Care Provider Active Kee Serrato MD Attending Provider Active Team Status: Active Member Role Status Dates Rafa Verdin MD Primary Care Provider Active Teacher Instrumental Relationship Specialty Start Date End Date Rafa Verdin MD [address] [place] [address] PCP - General Family Medicine 10/10/21 Teacher Instrumental Relationship Specialty Start Date End Date Rafa Verdin MD [address] [place] [address] PCP - General Family Medicine 10/10/21 Teacher Instrumental Relationship Specialty Start Date End Date Rafa Verdin MD [address] [place] [address] PCP - General Family Medicine 10/10/21 Teacher Instrumental Relationship Specialty Start Date End Date Rafa Verdin MD [address] [place] [address] PCP - General Family Medicine 10/10/21 Goals (unrecognized section and content) Goals may be documented in a n alternate section FOR RECORDS PERTAINING TO PATIENTS WHO ARE OR HAVE BEEN ENROLLED IN A CHEMICAL DEPENDENCY/SUBSTANCEABUSE PROGRAM, SOME INFORMATION MAY BE OMITTED. This clinical summary was aggregated from multiple sources. Caution should be exercised in using it in the provision of clinical care. This summary normalizes information from multiple sources, and as a consequence, information in this document may materially change the coding, format and clinical context of patient data. In addition, data may be omitted in some cases. CLINICAL DECISIONS SHOULD BE BASED ON THE PRIMARY CLINICAL RECORDS. [email or web address] [facility]. provides no warranty or guarantee of the accuracy or completeness of information in this document.
[2024-02-01 10:09] LABS: Basophils Percent Auto 0.8 % (0.2-2.0); Eosinophils Absolute Auto 0.1 10^3/uL (0.0-0.7); Eosinophils Percent Auto 2.1 % (0.9-7.0); Free T4 0.77 ng/dL (0.76-1.46); Hematocrit 39.2 % (36.0-48.0); Hemoglobin 12.6 g/dL (12.0-16.0); Immature Granulocytes Abs Auto 0.01 10^3/uL (0.00-0.03); Immature Granulocytes Pct Auto 0.2 % (0.0-0.5); Lymphocytes Absolute Auto 1.6 10^3/uL (1.2-3.8); Lymphocytes Percent Auto 32.5 % (20.5-60.0); Mean Corpuscular HGB Conc 32.1 g/dL (29.9-35.2); Mean Corpuscular Hemoglobin 30.4 pg (26.7-34.0); Mean Corpuscular Volume 94.7 fL (81.0-99.0); Mean Platelet Volume 9.1 fL (9.5-13.5); Monocytes Absolute Auto 0.4 10^3/uL (0.3-0.8); Monocytes Percent Auto 9.1 % (1.7-12.0); Neutrophils Absolute Auto 2.7 10^3/uL (1.4-6.5); Neutrophils Percent Auto 55.3 % (43.0-75.0); Platelet Count 246 10^3/uL (150-450); Red Blood Count 4.14 10^6/uL (4.20-5.40); Red Cell Distribution Width 11.9 % (11.0-15.0); White Blood Count 4.8 10^3/uL (4.0-11.0)
[2024-02-01 10:20] LABS: Alanine Aminotransferase 19 U/L (14-59); Albumin Globulin Ratio 1.3; Albumin Level 3.6 g/dL (3.4-5.0); Alkaline Phosphatase 84 U/L (46-116); Anion Gap 13.5; Aspartate Amino Transferase 10 U/L (15-37); BUN Creatinine Ratio 17.8; Bilirubin Total 0.4 mg/dL (0.2-1.0); Calcium 8.9 mg/dL (8.5-10.1); Carbon Dioxide 27.8 mmol/L (21.0-32.0); Chloride 104 mmol/L (98-107); Chol HDL Ratio 3.2; Cholesterol 213 mg/dL (<=200); Estimated GFR (African America >60 (>=60); Estimated GFR (Non-African Ame 51 (>=60); Globulin 2.8 g/dL; Glucose 140 mg/dL (74-106); HDL Cholesterol 67 mg/dL (40-60); Potassium 4.3 mmol/L (3.5-5.1); Sodium 141 mmol/L (136-145); Thyroid Stimulating Hormone 1.595 uIU/mL (0.358-3.740); Total Protein 6.4 g/dL (6.4-8.2); Triglycerides 240 mg/dL (<=150)
[2024-02-01 10:39] LABS: Estimated Average Glucose 143 mg/dL; Glycohemoglobin A1C 6.6 % (4.5-6.2)
== END 2024-02-01 08:46 | disposition home or self-care (01) ==
PROVIDERS: PCP Family Medicine; Visit Provider Family Medicine
DX: E78.5 Hyperlipidemia, unspecified (principal); E11.9 Type 2 diabetes mellitus without complications; I10 Essential (primary) hypertension; Z79.4 Long term (current) use of insulin
CPT/HCPCS: 36415; 80053; 80061; 83036; 84439; 84443; 85025

== ENCOUNTER 2024-02-15 20:21 | Outpatient (REF) | payer MEDICARE, BC, SELFPAY ==
--- OUTSIDE RECORDS SUMMARY | 2024-02-15 20:25 | XMS_ITS | CCD ---
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 Role Phone Rafa Verdin Primary Care Provider Unavailabl e Yehuda Camara Attending Provider Unavailable Rafa Verdin MD Primary Care Provider [phone] Yehuda Camara Unavailable Jose Hwang II Unavailable [phone] Rick Stephenson Unavailable Rafa Verdin MD Primary Care Provider [phone] MD Rafa Verdin Primary Care Provider [phone] MD Kee Serrato Attending Provider Kee Serrato [...] DAYANA DUTTA Consulting Unavailable RAYMONDY ., DR CRAIG Admitting Unavailable HOY ., DR CRAIG Attending [...] Unavailable TAMMY ., DR SEYMOUR Attending Unavailable [place], DR RENETTA Akhtar Consulting Unavailable HOY ., DR CRAIG Primary Care Unavailable TAMMY ., DR SEYMOUR Consulting Unavailable KEE SERRATO Admitting Unavailable MARE ., DR CRAIG Primary Care Unavailable KEE SERRATO Attending Unavailable KEE SERRATO Consulting Unavailable TAMMY ., DR SEYMOUR Admitting Unavailable TAMMY ., DR SEYMOUR Attending Unavailable [place], DR RENETTA Akhtar Consulting Unavailable HOY ., DR CRAIG Primary Care Unavailable TAMMY ., DR SEYMOUR Consulting Unavailable Rafa Verdin MD Primary Care Provider [phone] SELF, SELF Referring Unavailable RAN, CYNTHIA [...] [diclofenac] Drug Allergy 07-06-19 18 Nausea Only [facility] (17 sources) Lisinopril; Translations: [lisinopril] Drug Allergy 04-18-20 19 Cough [facility] (20 sources) pioglitazone; Translations: [pioglitazone] Drug Allergy 09-28-19 19 Itching [facility] (3 sources) Sulfonamides (Antibiotic); Translations: [Sulfa (Sulfonamide Antibiotics)] Allergy to substance 09-28-19 Rash [facility] (20 sources) traMADol; Translations: [tramadol] Drug Allergy 09-28-19 19 Itching, rash [facility] (12 sources) Sulfonamides (Antibiotic) Propensity to adverse reactions to drug 10-11-19 22 Hives [facility] (8 sources) Nisoldipine Drug Allergy rash [employer] Other (8 sources) Sulfamethoxazole / Trimethoprim Drug Allergy Unknown [employer] Other (8 sources) Sulfonamides (Antibiotic) Propensity to adverse reactions Unknown [employer] Other (6 sources) sulfaSALAzine Drug Allergy Unknown [employer] Other (1 source) meloxicam Drug Allergy [facility] (2 sources) pioglitazone Drug Allergy [facility] (2 sources) Sulfonamides (Antibiotic) Drug allergy (disorder) [facility] (2 sources) traMADol Drug Allergy [facility] Medications Current Medications Medication Drug Class(es) [...] Active Glimepiride 4 MG (Prior Auth: Rx Ref#:[id number]) Oral for 30 Active hydrOXYzine pamoate 25 [...] HCl ER 500 MG (Prior Auth: Rx Ref#:[id number]) Oral for 90 Active methylPREDNISolone 4 mg oral tablet (7 sources) Corticosteroid Start: 03-26-2022 methylPREDNIsolone 4 MG Tab Therapy Pack tablet Take 1 tablet by mouth As directed. follow package directions 21 tablet 0 03/26/2022 Active naloxone hydrochloride 40 mg/ml nasal spray (4 sources) Opioid Antagonist Start: 03-11-2022 End: 03-11-2022 naloxone 4 MG/0.1ML 1 spray by Nasal route once for 1 dose. [place] into the nose as directed. Call 911. If no response in 2 minutes use a new nasal spray in other nostril. Repeat until help arrives. 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 CLINICAL INDICATION: Pain FINDINGS/IMPRESSION: No evidence of acute osseous abnormality of the right knee. Constrained longstem right total knee arthroplasty without evidence of complication. No joint effusion. Electronically authenticated by: DAYANA DUTTA Date: 2022-11-01 20:37 Normal [facility] XR LSPINE 2_3 VIEWSon 2022 XR LSPINE [...] DAYANA DUTTA Date: 2022-11-01 20:41 Normal [facility] MAMM SCREEN 3D CARISSA CADon 04-24-2022 MG MAMM SCREEN 3D CARISSA CAD Patient: KATT RAHMAN Exam Date: 04/24/2022 : 1960 Gender:F Ordering : DR DAWN MUNOZ . Admission #: [id number] Family : Order #: [id number] CLICK HERE TO VIEW EXAM RADIOLOGY REPORT [...] kidney cancer at age 65. LOCATION: [facility] BREAST COMPOSITION: Heterogeneously dense,which may obscure small [...] Mccray MD on 04/24/2022 at 12:05 Normal [facility] PROF CHEM 8 (BAS METB)on Anion gap [Moles/Vol] 12.3 mmol/L Normal [facility] Comment on above: Performed By: #### B MP #### [facility] [address] [address] [address] Katlyn Barahona Calcium [Mass/Vol] 8.8 mg/dL Normal 8.5-10.1 [facility] Comment on above: Performed By: #### B MP #### [facility] [address] [address] [address] Katlyn Barahona Chloride [Moles/Vol] 104 mmol/L Normal 98-107 [facility] Comment on above: Performed By: #### B MP #### [facility] [address] [address] [address] Katlyn Barahona CO2 [Moles/Vol] 27.9 mmol/L Normal 21.0-32.0 [facility] Comment on above: Performed By: #### B MP #### [facility] [address] [address] [address] Katlyn Barahona Creatinine [Mass/Vol] 1.07 mg/dL Critically high 0.55-1.02 [facility] Comment on above: Performed By: #### B MP #### [facility] [address] [address] [address] Katlyn Barahona EGFR-AF TRINIDADIAN >60 Normal >=60 [facility] Comment on above: Performed By: #### B MP #### [facility] [address] [address] [address] Katlny Barahona EGFR-NON AF TRINIDADIAN 52 mL/min/1.73m2 Critically low >=60 [facility] Comment on above: Performed By: #### B MP #### [facility] [address] [address] [address] Katlyn Barahona Glucose [Mass/Vol] 173 mg/dL Critically high 74-106 T [facility] Comment on above: Performed By: #### B MP #### [facility] [address] [address] [address] Katlyn Barahona Potassium [Moles/Vol] 4.2 mmol/L Normal 3.5-5.1 [facility] Comment on above: Performed By: #### B MP #### [facility] [address] [address] [address] Katlyn Barahona Sodium [Moles/Vol] 140 mmol/L Normal 136-145 [facility] Comment on above: Performed By: #### B MP #### [facility] [address] [address] [address] Katlyn Barahona Urea nitrogen [Mass/Vol] 20.0 mg/dL Critically high 7.0-18.0 [facility] Comment on above: Performed By: #### B MP #### [facility] [address] [place] [address] Dr. Katlyn Barahona Urea nitrogen/Creatinine [Mass ratio] 18.7 mg/mg Normal [facility] Comment on above: Performed By: #### B MP #### [facility] [address] [address] [address] Katlyn Barahona PAP ACOG PANEL 2: 30 to 65on 02-12-2022 . . Normal [facility] Comment on above: Result Comment: Perf ormed at: WB Performed By: #### T 7, CMP, LIPID, BNP, TSH #### [facility] [address] [place] [address] Dr. Katlyn Barahona Age Gdln ACOG Testing 30-65 Normal [facility] Comment on above: Performed By: #### T 7, CMP, LIPID, BNP, TSH #### [facility] [address] [place] [address] Dr. Katlyn Barahona DIAGNOSIS: Comment Normal [facility] Comment on above: Result Comment: UNSA TISFACTORY FOR EVALUATION. SPECIMEN REPROCESSED FOR INTERPRETATION USING GLACIAL ACETIC ACID (GAA). Performed at: WB Performed By: #### T 7, CMP, LIPID, BNP, TSH #### [facility] [address] [place] [address] Dr. Katlyn Barahona HPV Aptima Negative Normal Negative [facility] Comment on above: Result Comment: This nucleic acid amplification test detects fourteen high-risk HPV types (16,18,31,33,35,39,45,51,52,56,58,59,66,68) without differentiation. Performed at: =G Performed By: #### T 7, CMP, LIPID, BNP, TSH #### [facility] [address] [place] [address] Dr. Katlyn Barahona Methodology: Comment Normal [facility] Comment on above: Result Comment: This liquid based ThinPrep(R) pap test was screened with the use of an image guided system. Performed at: WB Performed By: #### T 7, CMP, LIPID, BNP, TSH #### [facility] [address] [address] [address] Katlyn Barahona Note: Comment Normal [facility] Comment on above: Result Comment: The Pap [...] T 7, CMP, LIPID, BNP, TSH #### [facility] [address] [address] [address] Katlyn Barahona Performed by: Comment Normal [facility] Comment on above: Result Comment: Yuki Jang, Gas Cutting Machine Operator (ASCP) Performed at: WB Performed By: #### T 7, CMP, LIPID, BNP, TSH #### [facility] [address] [address] [address] Katlyn Barahona QC reviewed by: Comment Normal [facility] Comment on above: Result Comment: Almaz Inman, Supervisory Gas Cutting Machine Operator (ASCP) Performed at: WB Performed By: #### T 7, CMP, LIPID, BNP, TSH #### [facility] [address] [address] [address] Katlyn Barahona Recommendation: Comment Normal [facility] Comment on above: Result Comment: Sugg est follow up as clinically appropriate. Performed at: WB Performed By: #### T 7, CMP, LIPID, BNP, TSH #### [facility] [address] [address] [address] Katlyn Barahona Specimen adequacy: Comment Normal [facility] Comment on above: Result Comment: Spec imen processed and examined but unsatisfactory for evaluation of epithelial abnormality because of insufficient cellularity. Areas of partially obscuring blood are present. Performed at: WB Performed By: #### T 7, CMP, LIPID, BNP, TSH #### [facility] [address] [address] [address] Katlyn Barahona XR DEXA BONE DENSITYon [...] by: RENETTA MCCRAY Date: 2022-02-11 18:42 Normal [facility] LARGE JOINT/BURSA INJECTION AND/OR ASPIRATION: R hip [...] was prepped in the usual sterile fashion. [facility] Radiology Study observation (narrative) [facility] [place] bone 3 phaseon 12-12-2021 [place] bone 3 [facility] [place] [address] Nuclear Medicine Report Signed Patient: Katt Rahman MR#: [id number] : 1960 Acct:[id number] Age/Sex: 61 / F ADM Date: 12/12/21 Loc: [place] Room: Type: [facility] Attending Dr: Rafael Hernandez DO Ordering Provider: Rafael Hernandez DO Date of Service: 12/12/21 NH/NH bone 3 phase: T84.50XD Copies to: MD [...] is physiologic activity at the urinary tract. NH/NH bone 3 phase IMPRESSION: MILD HYPEREMIA AND INCREASED UPTAKE AT THE LATERAL ASPECT OF LEFT PATELLA, UNCLEAR ETIOLOGY. ADDITIONAL SUSPECTED DEGENERATIVE JOINT UPTAKE DESCRIBED. Impression dictated by: Jumana Ryder M.D.12/12/2021 1:10 PM Dictation Location: [place] [address] Transcribed By: ALBERTO 12/12/21 1310 Dictated By: Jumana Ryder MD 12/12/21 1302 Signed By: 12/12/21 1310 [facility] C REACTIVE PROTEINon 06-03-2 022 CRP [Mass/Vol] 14.7 mg/L High 0 - 10.0 MG/L [facility] Interpretation and review of laboratory results Abnormal [facility] CBC, EDIF, PLATELETon 2021 ABSOLUTE BASOPHIL COUNT 0.0 10*3/uL 0.0 - 0.2 10*3/uL [facility] Basophils/100 WBC (Bld) 0.5 % 0.0 - 2.0 % [facility] Differential cell count method Nom (Bld) AUTO DIFF % [facility] Eosinophils (Bld) [#/Vol] 0.10 10*3/uL 0.0 - 0.7 10*3/uL [facility] Eosinophils/100 WBC (Bld) 1.9 % 0.0 - 11.0 % [facility] Erythrocyte distribution width (RBC) [Ratio] 13.2 % 11.5 - 14.5 % [facility] Hematocrit (Bld) [Volume fraction] 35.2 % Low 36.0 - 48.0 % [facility] Hemoglobin (Bld) [Mass/Vol] 11.9 g/dL Low [facility] Interpretation and review of laboratory results Abnormal [facility] Lymphocytes (Bld) [#/Vol] 1.10 10*3/uL Low 1.2 - 3.4 10*3/uL [facility] Lymphocytes/100 WBC (Bld) 14.8 % Low 20.0 - 55.0 % [facility] MCH (RBC) [Entitic mass] 30.3 pg 26.0 - 35.0 PG [facility] MCHC (RBC) [Mass/Vol] 33.9 g/dL [facility] MCV (RBC) [Entitic vol] 89.4 fL [facility] Monocytes (Bld) [#/Vol] 0.6 10*3/uL 0.0 - 0.7 10*3/uL [facility] Monocytes/100 WBC (Bld) 7.6 % 0.0 - 10.0 % [facility] Neutrophils (Bld) [#/Vol] 5.7 10*3/uL 1.4 - 6.5 10*3/uL [facility] Neutrophils/100 WBC (Bld) 75.2 % High 37.0 - 75.0 % [facility] Platelet mean volume (Bld) [Entitic vol] 7.5 fL [facility] Platelets (Bld) [#/Vol] 257 10*3/uL 130.0 - 400.0 10*3/uL [facility] RBC (Bld) [#/Vol] 3.94 10*6/uL Low 4.0 - 5.4 10*6/uL [facility] WBC (Bld) [#/Vol] 7.6 10*3/uL 3.6 - 11.0 10*3/uL [facility] SEDIMENTATION RATE, AUTOMATE Don 12-06-2021 ESR (Bld) [Velocity] 12 mm/h [facility] BNPon 11-13-2021 Natriuretic peptide B (Bld) [Mass/Vol] 17.0 pg/mL Normal <=900.0 [facility] Comment on above: Performed By: #### T 7, CMP, LIPID, BNP, TSH #### [facility] [address] [place] [address] Dr. Katlyn Barahona CBC AUTO DIFFon 11-13-2021 BASO # 0.0 103/ul Normal 0.0-0.1 [facility] Comment on above: Performed By: #### T 7, CMP, LIPID, BNP, TSH #### [facility] [address] [place] [address] Dr. Katlyn Barahona Basophils/100 WBC (Bld) 0.8 % Normal 0.2-2.0 [facility] Comment on above: Performed By: #### T 7, CMP, LIPID, BNP, TSH #### [facility] [address] [place] [address] Dr. Katlyn Barahona EO # 0.1 103/ul Normal 0.0-0.7 [facility] Comment on above: Performed By: #### T 7, CMP, LIPID, BNP, TSH #### [facility] [address] [place] [address] Dr. Katlyn Barahona Eosinophils/100 WBC (Bld) 2.6 % Normal 0.9-7.0 [facility] Comment on above: Performed By: #### T 7, CMP, LIPID, BNP, TSH #### [facility] [address] [place] [address] Dr. Katlyn Barahona Erythrocyte distribution width (RBC) [Ratio] 12.6 % Normal 11.0-15.0 [facility] Comment on above: Performed By: #### T 7, CMP, LIPID, BNP, TSH #### [facility] [address] [place] [address] Dr. Katlyn Barahona Hematocrit (Bld) [Volume fraction] 38.7 % Normal 36.0-48.0 [facility] Comment on above: Performed By: #### T 7, CMP, LIPID, BNP, TSH #### [facility] [address] [place] [address] Dr. Katlyn Barahona Hemoglobin (Bld) [Mass/Vol] 12.3 g/dL Normal 12.0-16.0 [facility] Comment on above: Performed By: #### T 7, CMP, LIPID, BNP, TSH #### [facility] [address] [place] [address] Dr. Katlyn Barahona IG # 0.02 10e3/ul Normal 0.00-0.03 [facility] Comment on above: Performed By: #### T 7, CMP, LIPID, BNP, TSH #### [facility] [address] [place] [address] Dr. Katlyn Barahona IG % 0.4 % Normal 0.0-0.5 [facility] Comment on above: Performed By: #### T 7, CMP, LIPID, BNP, TSH #### [facility] [address] [place] [address] Dr. Katlyn Barahona LYMPH # 1.4 103/ul Normal 1.2-3.8 [facility] Comment on above: Performed By: #### T 7, CMP, LIPID, BNP, TSH #### [facility] [address] [place] [address] Dr. Katlyn Barahona Lymphocytes/100 WBC (Bld) 28.0 % Normal 20.5-60.0 [facility] Comment on above: Performed By: #### T 7, CMP, LIPID, BNP, TSH #### [facility] [address] [place] [address] Dr. Katlyn Barahona MANUAL DIFF REQ NO Normal [facility] Comment on above: Performed By: #### T 7, CMP, LIPID, BNP, TSH #### [facility] [address] [place] [address] Dr. Katlyn Barahona MCH (RBC) [Entitic mass] 29.8 pg Normal 26.7-34.0 [facility] Comment on above: Performed By: #### T 7, CMP, LIPID, BNP, TSH #### [facility] [address] [place] [address] Dr. Katlyn Barahona MCHC (RBC) [Mass/Vol] 31.8 g/dL Normal 29.9-35.2 [facility] Comment on above: Performed By: #### T 7, CMP, LIPID, BNP, TSH #### [facility] [address] [place] [address] Dr. Katlyn Barahona MCV (RBC) [Entitic vol] 93.7 fL Normal 81.0-99.0 [facility] Comment on above: Performed By: #### T 7, CMP, LIPID, BNP, TSH #### [facility] [address] [place] [address] Dr. Katlyn Barahona MONO # 0.4 103/ul Normal 0.3-0.8 [facility] Comment on above: Performed By: #### T 7, CMP, LIPID, BNP, TSH #### [facility] [address] [place] [address] Dr. Katlyn Barahona Monocytes/100 WBC (Bld) 8.9 % Normal 1.7-12.0 [facility] Comment on above: Performed By: #### T 7, CMP, LIPID, BNP, TSH #### [facility] [address] [place] [address] Dr. Katlyn Barahona NEUT # 3.0 103/ul Normal 1.4-6.5 [facility] Comment on above: Performed By: #### T 7, CMP, LIPID, BNP, TSH #### [facility] [address] [place] [address] Dr. Katlyn Barahona Neutrophils/100 WBC (Bld) 59.3 % Normal 43.0-75.0 [facility] Comment on above: Performed By: #### T 7, CMP, LIPID, BNP, TSH #### [facility] [address] [address] [address] Katlyn Barahona Platelet mean volume (Bld) [Entitic vol] 8.9 fL Critically low 9.5-13.5 [facility] Comment on above: Performed By: #### T 7, CMP, LIPID, BNP, TSH #### [facility] [address] [address] [address] Katlyn Barahona PLT 259 103/ul Normal 150-450 [facility] Comment on above: Performed By: #### T 7, CMP, LIPID, BNP, TSH #### [facility] [address] [address] [address] Katlyn Barahona RBC 4.13 106/ul Critically low 4.20-5.40 [facility] Comment on above: Performed By: #### T 7, CMP, LIPID, BNP, TSH #### [facility] [address] [address] [address] Katlyn Barahona WBC 5.0 103/ul Normal 4.0-11.0 [facility] Comment on above: Performed By: #### T 7, CMP, LIPID, BNP, TSH #### [facility] [address] [place] [address] Dr. Katlyn Barahona FREE THYROXINE INDEX T7on FTI 2.27 Normal 1.30-4.50 [facility] Comment on above: Performed By: #### T 7, CMP, LIPID, BNP, TSH #### [facility] [address] [address] [address] Katlyn Barahona T3U 36.0 % Normal 30.0-39.0 [facility] Comment on above: Performed By: #### T 7, CMP, LIPID, BNP, TSH #### [facility] [address] [place] [address] Dr. Katlyn Barahona T4 [Mass/Vol] 6.30 ug/dL Normal 4.80-13.90 [facility] Comment on above: Performed By: #### T 7, CMP, LIPID, BNP, TSH #### [facility] [address] [address] [address] Katlyn Barahona GLYCOHEMOGLOBIN A1Con 2021 ADA RECOMMENDATION SEE BELOW Normal [facility] Comment on above: Result Comment: ADA RECOMMENDED LIMIT 4.0 - 6.0 ADA THERAPEUTIC TARGET < 7.0 ACTION SUGGESTED > 7.0 Performed By: #### T 7, CMP, LIPID, BNP, TSH #### [facility] [address] [address] [address] Katlyn Barahona Glucose [Mass/Vol] 154 mg/dL Normal [facility] Comment on above: Performed By: #### T 7, CMP, LIPID, BNP, TSH #### [facility] [address] [place] [address] Dr. Katlyn Barahona HbA1c (Bld) [Mass fraction] 7.0 % Critically high 4.5-6.2 [facility] Comment on above: Performed By: #### T 7, CMP, LIPID, BNP, TSH #### [facility] [address] [address] [address] Katlyn Barahona IRONon 11-13-2021 Iron [Mass/Vol] 72.0 ug/dL Normal 50.0-170.0 [facility] Comment on above: Performed By: #### T 7, CMP, LIPID, BNP, TSH #### [facility] [address] [place] [address] Dr. Katlyn Barahona LIPID PROFILEon 11-13-2021 CHOL-HDL RATIO NORM SEE BELOW Normal [facility] Comment on above: Result Comment: 3.3 - 4.4 LOW RISK 4.4 - 7.1 AVERAGE RISK 7.1 - 11.0 MODERATE RISK >11.0 HIGH RISK Performed By: #### T 7, CMP, LIPID, BNP, TSH #### [facility] [address] [address] [address] Katlyn Barahona Cholesterol [Mass/Vol] 290 mg/dL Critically high <=200 [facility] Comment on above: Performed By: #### T 7, CMP, LIPID, BNP, TSH #### [facility] [address] [address] [address] Katlyn Barahona Cholesterol in HDL [Mass/Vol] 65 mg/dL Critically high 40-60 [facility] Comment on above: Performed By: #### T 7, CMP, LIPID, BNP, TSH #### [facility] [address] [address] [address] Katlyn Barahona Cholesterol in LDL [Mass/Vol] 183.4 mg/dL Normal [facility] Comment on above: Performed By: #### T 7, CMP, LIPID, BNP, TSH #### [facility] [address] [address] [address] Katlyn Barahona Cholesterol.total/Ch olesterol in HDL [Mass ratio] 4.5 {ratio} Normal [facility] Comment on above: Performed By: #### T 7, CMP, LIPID, BNP, TSH #### [facility] [address] [address] [address] Katlyn Barahona HDL NORMAL > or = 60 mg/dl - LOW CARDIOVASCULAR RISK <40 mg/dl - HIGH CARDIOVASCULAR RISK Normal [facility] Comment on above: Performed By: #### T 7, CMP, LIPID, BNP, TSH #### [facility] [address] [address] [address] Katlyn Barahona LDL CALC NORMAL SEE BELOW Normal [facility] Comment on above: Result Comment: <100 mg/dl OPTIMAL 100 - 129 mg/dl NEAR OR ABOVE OPTIMAL 130 - 159 mg/dl BORDERLINE HIGH 160 - 189 mg/dl HIGH >190 mg/dl VERY HIGH Performed By: #### T 7, CMP, LIPID, BNP, TSH #### [facility] [address] [address] [address] Katlyn Barahona Triglyceride [Mass/Vol] 208 mg/dL Critically high <=150 [facility] Comment on above: Performed By: #### T 7, CMP, LIPID, BNP, TSH #### [facility] [address] [address] [address] Katlyn Barahona VLDL CALC 41.6 mg/dL Normal [facility] Comment on above: Performed By: #### T 7, CMP, LIPID, BNP, TSH #### [facility] [address] [place] [address] Dr. Katlyn Barahona PROF 14(COMP METB)on 022 Albumin [Mass/Vol] 3.6 g/dL Normal 3.4-5.0 [facility] Comment on above: Performed By: #### T 7, CMP, LIPID, BNP, TSH #### [facility] [address] [place] [address] Dr. Katlyn Barahona Albumin/Globulin [Mass ratio] 1.1 {ratio} Normal [facility] Comment on above: Performed By: #### T 7, CMP, LIPID, BNP, TSH #### [facility] [address] [place] [address] Dr. Katlyn Barahona ALP [Catalytic activity/Vol] 91 U/L Normal 46-116 [facility] Comment on above: Performed By: #### T 7, CMP, LIPID, BNP, TSH #### [facility] [address] [place] [address] Dr. Katlyn Barahona ALT [Catalytic activity/Vol] 17 U/L Normal 14-59 [facility] Comment on above: Performed By: #### T 7, CMP, LIPID, BNP, TSH #### [facility] [address] [place] [address] Dr. Ktalyn Barahona Anion gap [Moles/Vol] 12.8 mmol/L Normal [facility] Comment on above: Performed By: #### T 7, CMP, LIPID, BNP, TSH #### [facility] [address] [place] [address] Dr. Katlyn Barahona AST [Catalytic activity/Vol] 10 U/L Critically low 15-37 [facility] Comment on above: Performed By: #### T 7, CMP, LIPID, BNP, TSH #### [facility] [address] [place] [address] Dr. Katlyn Barahona Bilirubin [Mass/Vol] 0.4 mg/dL Normal 0.2-1.0 [facility] Comment on above: Performed By: #### T 7, CMP, LIPID, BNP, TSH #### [facility] [address] [address] [address] Katlyn Barahona Calcium [Mass/Vol] 8.7 mg/dL Normal 8.5-10.1 [facility] Comment on above: Performed By: #### T 7, CMP, LIPID, BNP, TSH #### [facility] [address] [place] [address] Dr. Katlyn Barahona Chloride [Moles/Vol] 103 mmol/L Normal 98-107 [facility] Comment on above: Performed By: #### T 7, CMP, LIPID, BNP, TSH #### [facility] [address] [place] [address] Dr. Katlyn Barahona CO2 [Moles/Vol] 26.4 mmol/L Normal 21.0-32.0 [facility] Comment on above: Performed By: #### T 7, CMP, LIPID, BNP, TSH #### [facility] [address] [place] [address] Dr. Katlyn Barahona Creatinine [Mass/Vol] 1.19 mg/dL Critically high 0.55-1.02 [facility] Comment on above: Performed By: #### T 7, CMP, LIPID, BNP, TSH #### [facility] [address] [place] [address] Dr. Katlyn Barahona EGFR-AF TRINIDADIAN 56 mL/min/1.73m2 Critically low >=60 [facility] Comment on above: Performed By: #### T 7, CMP, LIPID, BNP, TSH #### [facility] [address] [place] [address] Dr. Katlyn Barahona EGFR-NON AF TRINIDADIAN 46 mL/min/1.73m2 Critically low >=60 [facility] Comment on above: Performed By: #### T 7, CMP, LIPID, BNP, TSH #### [facility] [address] [place] [address] Dr. Katlyn Barahona Globulin (S) [Mass/Vol] 3.2 g/dL Normal [facility] Comment on above: Performed By: #### T 7, CMP, LIPID, BNP, TSH #### [facility] [address] [place] [address] Dr. Katlyn Barahona Glucose [Mass/Vol] 133 mg/dL Critically high 74-106 [facility] Comment on above: Performed By: #### T 7, CMP, LIPID, BNP, TSH #### [facility] [address] [place] [address] Dr. Katlyn Barahona Potassium [Moles/Vol] 4.2 mmol/L Normal 3.5-5.1 [facility] Comment on above: Performed By: #### T 7, CMP, LIPID, BNP, TSH #### [facility] [address] [place] [address] Dr. Katlyn Barahona Protein [Mass/Vol] 6.8 g/dL Normal 6.4-8.2 [facility] Comment on above: Performed By: #### T 7, CMP, LIPID, BNP, TSH #### [facility] [address] [place] [address] Dr. Katlyn Barahona Sodium [Moles/Vol] 138 mmol/L Normal 136-145 [facility] Comment on above: Performed By: #### T 7, CMP, LIPID, BNP, TSH #### [facility] [address] [place] [address] Dr. Katlyn Barahona Urea nitrogen [Mass/Vol] 17.0 mg/dL Normal 7.0-18.0 [facility] Comment on above: Performed By: #### T 7, CMP, LIPID, BNP, TSH #### [facility] [address] [place] [address] Dr. Katlyn Barahona Urea nitrogen/Creatinine [Mass ratio] 14.3 mg/mg Normal [facility] Comment on above: Performed By: #### T 7, CMP, LIPID, BNP, TSH #### [facility] [address] [place] [address] Dr. Katlyn Barahona TSHon 11-13-2021 TSH 1.384 uIU/mL Normal 0.358-3.740 [facility] Comment on above: Performed By: #### T 7, CMP, LIPID, BNP, TSH #### [facility] [address] [place] [address] Dr. Ktalyn Barahona TSH RANGE SEE BELOW Normal [facility] Comment on above: Result Comment: <0.3 4 UIU/ml HYPERTHYROID 0.34-5.60 UIU/ml EUTHYROID >5.60 UIU/ml HYPOTHYROID Performed By: #### T 7, CMP, LIPID, BNP, TSH #### [facility] [address] [address] [address] Katlyn Barahona VITAMIN D 25 OHon 11-13-2021 VIT D 25-OH 23.2 ng/mL Normal [facility] Comment on above: Performed By: #### T 7, CMP, LIPID, BNP, TSH #### [facility] [address] [address] [address] Katlyn Barahona VIT D RANGES SEE BELOW Normal [facility] Comment on above: Result Comment: <20 ng/mL Vit D deficient 20 - <30 ng/mL Vit D insufficient 30 - 100 ng/mL Vit D sufficient >100 ng/mL Potential Toxicity Performed By: #### T 7, CMP, LIPID, BNP, TSH #### [facility] [address] [address] [address] Katlyn Barahona LARGE JOINT/BURSA INJECTION AND/OR [...] patient was prepped with alcohol and Chloraprep. [facility] Operative Reporton Operative Report [id number] #1.00CD:127 Normal [facility] Lab Reportson 04-15-2021 Lab Reports [id number] #1.00CD:127 Normal [facility] Formson 04-11-2021 Forms [id number] #1.00CD:127 Normal [facility] General Surgery Office/Clini c Noteon 04-10-2021 General Surgery Office/Clinic Note CD:[id number]:[id number] 5oKY2fGvFgavOnBPhsVm 2mr0rfAF66mk4qMgZaFk 8+UhctKR1FPToZYNPj hU3jDGDWTefVEiOiBU5l CrDDAq0XMUDxCOhFXOej DU4hKOY2ijrqnR4jWW8q RQPfvTPrOf6de1u2 WnhrFg0jFf3WSj69zPOk pXFgRGHSE5nzyI7cRX3i nZOcW9ByPWBmJb5IKJt5 xEeyfE0iymD1Wtv8 zYX6Oi78d6asnmYaw3Ze CxD1ZYnnaBf7lEilQHjf xG0zDzJzNSIKxY9qsBvg IB7dbD5yplMkxAsb biI+NzgmOZLaMek7wKGt LF39U1QfoJblQdn6mAA7 STPcjJCiAIWcbYr6JEDR LVVBLUNvbXBhdGli qRRsQGScenIzbaG0NfvW DRQbIrZbNyg9Z6rvRNV+ Qvegy7G8Ymf8NNx3JVJ4 tDwhLYRgg453ENDn zGxopUboiTBbd69hWZKi dITrTrSvk426NUHrutX8 LQmhuDxvHbj1nNJufEQv n9zqoUw8QvGtRCDc PlvLOEOitQgaz7TcOkpD AJqvd3opkgJygUzyVDX1 c3EfUUbpIUVfKCW6CbDv IC8+CgkJPGNvbCB2 ZAgsY925ApXxtLZkk7zm aRi8MoK2KCZuLi1PQDqq N51gK6LgjOI+Szp6qDXm ZHk+CgkJPHRyPgoJ LAa7fJPas5K0vBV4GzCl qhOse3j2FOayCGO6MzB5 AYF9rZRokB4foCrqtssr hA3eWiT+CgkJCTxk sZYjR0zmb9J6CmYci8Jl kZcwckAsYDNqPkLcy6ih JumpJOQcsH9dGMA5CsPv EREtuMTuRJKqXB4s auEpnCAuDQLrYlLyX6Mg l09ds0BtYLUBE6lCGdVg UST4LN6vVtWmCG1sLvCh PyLaMEwsADM7JCNp HINdEG67CZXqUYEaPZQk HWL3QHOfAJBdd4X2bKG8 QdIhBKUjbnp8MJSnhReb PjxzcGFuIGNsYXNz ACJhMGCrW9Ajl78qcUGl iDW2Bq50h6SswvNxmBfn OZ4dMt6zrS33OZklmMT9 QDFnqOM3VZLznZPa GHHhd4QuvNzdbgenjZ8g METsuU6oGtD+I2jtXOSs J68nfRkjlN89JJ4vsICk Xmqmp2Iyyv5IYAzE SFCdufAreEOgpb7rYQMr iAIhf611YH86DeFcCKqe t282NM91qFckKT1vMHSV I3XNJN4JSOVAXfTw PWyxOQAcrjJfK1H2iCis PUUKD8F7XhN8MT1UQlJd VQBJI4OjOoVjBd4IF1CH ETmZPuB7GhEePXhh PSJfNWEzYmVlZDMtMGM2 Zm60JJL4TLy6GxWuWYVl KXBjUZMfBlHcWi5MLFaV KBXdjwWeiYMwao4g NCOqySKgj138NM97rQSq nLNtNPJdcW18EACsKLSm WSS0N39jxLMvpJH4xYM6 IlBBVENBUkVfTUVB CzNvAIE4RM34xGK5rCV3 FcJ2DUM6RLF8UDhaMZyh PSJfMzMyMmFkZTQtNzgy QD85IYS3TAnnXJTx OGIxYmMyYzIzNzUyIiB4 nUsuygxiUP9uFAscQW7h L4GvS7OkHZ73JGUla17q QnCblWxsvwT7yDWb VFL6hflaEVMkQ0TvLV3k aXY+OrnJXErwAKf2YrgE YDf0P1Brhp8ZXnsOENxk bTZbU7atm8U4SpNl l8PbbFnylsQkUTSzNcRy x4kmAwxrKEEiiL6mVOY1 BeXgVFLkhMNoNJSxNU7x dmFibGUiIGRkOnNl G7Sab89qz6JuHYDTY1rB QgHoNFB2LV9wMbHiRW0d D8HfUUByNAGpDJbtMPWv JHcuGx05ZtjgVWCa JrG6T7Z9SLsuKBBii0L4 vBI1GdDvCDGvcrk5JXBa eDsiPjxzcGFuIGNsYXNz XANsPYTnU7Nui32w mXBakBC2Eb42c0YuxoWl bLntFX2jMh6psV58MZzn uWA1KXCfnUQ3HDHhoCVx XFSlb5AiiQbvexgk qC8bBYNmwC4xGlL+SFBJ GHD2ENOrEK9dnOMiOddm e2Hlwz1XSccUOZnhlRVv K2zqx6S5PuYhAV2l R05bkWZqhVCwVTJ8D56r nPPmaYP1nZI8BsODUQUW BvFkYLFNEoWgPOM6mxZa RBAxepQvkBGoDB5w CMa0KSHVCDKeOOD0XM81 QjRDLUFGRDItNkFEQkMy IqW1ORqpPcRhAP3xQ3Tn NzZlNjIxLTNmMjAt WAB5MY61O9O0CQNnBiN7 TtT8ViKaJKK+CgkJCTxk rHPnZ2cmu8D9HvAqOP5x F90gqGVbfSe8FT1y VJBuOD5yleThzJDyFJLq GkX2dhRnb0Y0tI3ga4U8 zPH1NoQtgZ4kpAflvWNe FTU6J11vsALovNH9 cKL1UuSUNWNDPfSfRLHM WpTwMID1DD68qKH5hYZ4 HiSpfUV5Iq17DtWdJZBk PH6sOxXvFYG4MiFu TOY8SM50Czq7QJO2DIBb GYEzYSnouS0qTuRkKRVW wU8ifLrvFW7hpO3cfnQh dGlvbiI+QU4reBE+ MfjPGUk9YCu2CGYyCXEn PSJkZGVtcmNvbnRlbnRp hFPbTPEubwDuu0LsHcpv PgApKTdupA8tqC9s vFgjX7M5eCzkKMQ1m1He cmlnaHQiIGRkOmNvbnRl hoI1xXZvGVRCIPOLFLEG U11VIEJrOQGjLmQa jMt7qPurXQCwLUkfFVTw XwZ6ERPiRIArDFAsFF05 RhWmVEMbUXbqMsF3C3U1 GCRlLHPwCfS3qBye tlxjEN0oHXqbFU4rR8Oa A0DnXY83PAQhw23yOjxg VYm7CziCDDeTEALkkrKs gBFgtj4iFSVbzKXz y999KJ23bDUagTUuCOAo mI97SNDtFIYaESS2GyPj DtemGJJvmeulxLdsEU0e iF7kYQAsX4m0JpYo BJool021XR46aSkoFU1l UTJWD9KOWM6RFGWWCiDq RDvaqzLpyCaeIT8eRfDs JH3vXdM1PxAkPdF1 MWN0KGMwGIN7Lq3yAUBz DGNeXuDmHZZ1NFT2FASt zN6dwzZ1HGU9UcR6yxTa oIXEa7K8xANveFQ7 hX8hNr76F0Spku6JLdaF SMbwyZQfX8rkq5C1QrJa JW9kG75kwALboHs3WY6l KEPwIY8qmgDygHVz QRCyFvB9kfYzr3Z6rB1m u8M7fMB5AuNpyN5bxKml iUCkCFE4M97wpYThpNX3 tFK7WlVWPCYAKwIl XNMVAyBpJJI9DH31zQL4 pAT8BhTxfEX1Sh8eUxJl FllhGR8oNmYfDGN7KqAw LNGqZG9bPUFqKQX8 Y9G1BKTaTNshwU0uOdJh NVAJlI1hdBumVQ8onO7u bnRhdGlvbiI+FT2tiUU+ DjhVGQs4EAf7WEQe YXNzPSJkZGVtcmNvbnRl aeWhqUPqOKAnthCxk5Mj ShwkAfNmYLddmD6ynW7k lGgsP7S6yKduZHB7 p1JebzmhmFDxIEHjKnVl dyYwxoR6aRAkNLOKMLMZ AIIOP60GQLYrGPEpBlMy rUp0zTpwBXCzNJku ZLFpC9NzWDJrUDtpCLmq Pc18SEQ6KDH1VjUoLHp4 PLUvLBC2URj1UlG6pSye tqtyIE5nLEpmBI8k Z3OwQ3XwXJ59SVSug80r AupgNFe1CcqPARbSGRAb rdWxzZSaoq2dIRDttARi p754ML06yFAnlVNb NODoyZ44NKTqJJTgWGE6 YnRuZmxvYXRpbmdzdHls GU7apA9oJXNeL5x6KzQf MYglp619XL83qHve KN0rZPBIB9ABBC8PKEKD FzOtHCdvnjUgcNffKH3t LbZvJJ2iDaDwEoRhFBOu WHIaUDTwFJcvYY4u OCCzJUJ6M1XxTYB9Oxet MTEeoI2ghkO4MZR0YpT3 ahDuaXUDx6F3nQVevVT4 pV4hHz05J8Tuej4L MzdTANaknZOxK8gco8X1 KwRmUT1aL79kuGXhgNi9 TQ1nWDAbWL7pzhTehWVd VOHfPxR1kgLhp0B5 uR4in6V3oCA4ZtKakO3w aFelwOAkCJB3S43ngNQj dDC7yVT2HyFCDGIBCkFl VMTFWaYyAJH6XI80 bJP9jLK8AdBveYL6Xe0y BIH0WHC6RJ67ExI3HJJ7 BWBwHzKcRX7dErKhQqSp UKMdUsHsGFspaU1o KiXfRHZLpV8elZxvAT2b wM8fchFuySmaqbH+PC9k aXY+EpmWCBw3HGh7VQVk YXNzPSJkZGVtcmNv bnRlbnRpdGVtIGRkcmVt b3IvFveeAyUoFPknoR4k eZ7unOasL4N7tOazIIK6 b0FsnaehkGJuSMAd FvJooeXgndW0nZEhIYUV CNNTOEJXW54VPXKjDLBf BzIgmDh3yOfkMDVaEBur UUFjUbA2MSw3AxZw WDUnCn15CCAyGCa7DDSc Mfv4GCLyRGInCsT7LhE1 kZumwkvaPY0iMCizXV4x A5GuP9DfPC86FGFf w10wUfvvGDg9TrnQTHaC VFKmjzVzhVGqud4fJJRx oYXvc533ZV73oPNvtONi SPRobE00PYWiEUYl LQC3OlWgSpopCTQlpcxx oOdvXE2mrO8oWBVoE8r5 CqYgEFikl828VR63dGdu AA8tGORWI5KNWT9A RUFTIiBkZDplbnRpdHlp FJ1eEpUvBE0pDqwsHSvj DIKgMOK1PSQrPTOuUA84 ZDIzLWQyNjdkODg0 KFF2YtJsrM1qcrY2FIM4 QwO8veLynSISw7L5tKZm rAP6hO2kCc66G6Tpfa9Q YdjVKWcxkAOmH7fi y7Y5KxGgUI3lY41aoOPu rQe5OD5dIZWtZT6mnoTr zXHwIRGpBcR7noDie4K3 sA7es8A4dIJ6WyYa c (more content not included)... Normal [facility] Comment on above: Result Comment: Elec tronically Signed By: MIRIAM BRONSON, Tan Gross\Date and Time Signed: 04/10/21 15:28 EDT XR knee RT 2Von 04-09-2021 XR knee RT 2V [facility] [employer] Other XR knee RT 2V [facility] [employer] Other XR knee RT 2V [address] [place] [address] [employer] Other XR [place] 2[place] [address] [facility] [employer] Other XR knee RT 2V XRay Report [facility] [employer] Other XR knee RT 2V Signed [place] [employer] Other XR knee RT 2V Patient: Katt Rahman MR#: [id number] [facility] [employer] Other XR knee RT 2V : 1960 Acct:[id number] [place] [employer] Other XR knee RT 2V Age/Sex: 60 / F ADM Date: 04/09/21 [place] [employer] Other XR knee RT 2V Loc: SOXD Room: Type: [facility] [employer] Other XR knee RT 2V Attending Dr: Milagros Hall NP-C [facility] [employer] Other XR knee RT 2V Ordering Provider: Yehuda Camara MD [place] [employer] Other XR knee RT 2V Date of Service: 04/09/21 [employer] Other XR knee RT 2V XR/XR knee RT 2V: History of total right knee replacement [employer] Other XR knee RT 2V Copies to: Yehuda Camara MD [employer] Other XR knee RT 2V BUNNY Tinsley-C [employer] Other XR knee RT 2V 2 views RIGHT knee plain film [employer] Other XR knee RT 2V COMPARISON:05/10/20 No rt [employer] Other XR knee RT 2V HISTORY:Status post RIGHT total knee arthroplasty [employer] Other XR knee RT 2V No hardware failure or loosening identified. No fracture or dislocation. Small suprapatellar [employer] Other XR knee RT 2V effusion. No soft tissue abnormality. [employer] Other XR knee RT 2V XR/XR knee RT 2V [employer] Other XR knee RT 2V IMPRESSION:Uncomplic ated RIGHT knee arthroplasty. [employer] Other XR knee RT 2V Impression dictated by: Edilberto Castillo M.D.04/09/2021 11:51 AM [employer] Other XR knee RT 2V Dictation Location: [place] [address] [employer] Other XR knee RT 2V Transcribed By: PWS 04/09/21 [facility] [employer] Other XR knee RT 2V Dictated By: Edilberto Castillo DO 04/09/21 1149 [employer] Other XR knee RT 2V Signed By: [employer] Other XR knee RT 2V 04/09/21 [facility] [employer] Other Operative Reporton Operative Report [id number] #1.00CD:127 Normal [facility] Consent for Procedure/Surger yon 01-25-2021 Consent for Procedure/Surgery [id number] #1.00CD:127 Normal [facility] Provider Letter FTon 01-11 Provider Letter [facility] January 11, 2021 Rafa Verdin, [address] [facility] [address] Re: KATT RAHMAN Date of : 1960 Thank you for your referral of Katt Rahman who was seen on consultation on January 10, 2021, for possible gastric ulcer. An EGD is planned for further evaluation. I have enclosed my consultation note for your review. I will be happy to follow Katt. Sincerely, Tan Hutchison MD General Surgery [facility] Ambulatory Clinical Summaryo n 01-10-2021 Ambulatory Clinical Summary {[id number]}CD:[id number] [facility] RAD - CT Reporton 01-09-[address] RAD - CT Report [id number] #1.00CD:127 [facility] RAD - Ultrasound Reporton RAD - Ultrasound Report [id number] #1.00CD:127 [facility] Physician Referralon 021 Physician Referral [id number] #1.00CD:127 [facility] Physician Referral [id number] #1.00CD:127 [facility] Consent for COVID Vaccineon 10-28-2020 SARS-CoV-2 (COVID-19) RNA VIVIANA+probe Ql (Unsp spec) [id number] 8#1.00CD:127 [facility] Coding Summary.on 09-26-2020 Coding Summary. CODING DATE: 09/26/2020 FINAL [facility] STATUS: PAYOR: [facility] [place] [facility] DESCRIPTION 1492 [employer] - Level [...] Renetta Maurice Date Saved: 09/26/2020 02:57 pm [facility] Consent for COVID Vaccineon 09-26-2020 SARS-CoV-2 (COVID-19) RNA VIVIANA+probe Ql (Unsp spec) [id number] 8#1.00CD:127 [facility] Consent for Treatmenton 09-04 Consent for Treatment [id number] 8#1.00CD:127 [facility] Vital Signs Date Time Vital Sign Value Performing Clinician Facility 03-04-2023 11:26-0400 Body height 165.1 cm Cynthia Ran ROLLER INSPECTOR AND MENDER-TURN OPERATOR Work Phone: [facility] 03-04-2023 11:26-0400 Body mass index (BMI) [Ratio] 32.95 kg/m2 Cynthia Ran ROLLER INSPECTOR AND MENDER-TURN OPERATOR Work Phone: [facility] 03-04-2023 11:26-0400 Body weight 89.81 kg Cynthia Ran ROLLER INSPECTOR AND MENDER-TURN OPERATOR Work Phone: [facility] [employer] [facility] 06-25-2022 11:34-0500 Body height 165.1 cm Kee Serrato MD Work Phone: [facility] 06-25-2022 11:34-0500 Body mass index (BMI) [Ratio] 33.08 kg/m2 Kee Serrato MD Work Phone: [facility] [employer] [facility] 06-25-2022 11:34-0500 Body temperature 97.2 [degF] [facility] 06-25-2022 11:34-0500 Body weight 90.17 kg Kee Serrato MD Work Phone: [facility] [employer] [facility] 04-16-2022 13:38-0400 Body height 165.1 cm Cynthia Ran ROLLER INSPECTOR AND MENDER-TURN OPERATOR Work Phone: [facility] [employer] [facility] 04-16-2022 13:38-0400 Body mass index (BMI) [Ratio] 33.12 kg/m2 Cynthia Durant ROLLER INSPECTOR AND MENDER-TURN OPERATOR Work Phone: [facility] 04-16-2022 13:38-0400 Body temperature 97.11 [degF] Cynthia Durant APRN-TURN OPERATOR Work Phone: [facility] 04-16-2022 13:38-0400 Body weight 90.27 kg Cynthia Durant ROLLER INSPECTOR AND MENDER-TURN OPERATOR Work Phone: [facility] 03-26-2022 13:25-0400 Body height 165.1 cm Cynthia Durant ROLLER INSPECTOR AND MENDER-TURN OPERATOR Work Phone: [facility] 03-26-2022 13:25-0400 Body mass index (BMI) [Ratio] 33.12 kg/m2 Cynthia Durant APRN-TURN OPERATOR Work Phone: [facility] 03-26-2022 13:25-0400 Body temperature 97.5 [degF] Cynthia Durant APRN-TURN OPERATOR Work Phone: [facility] 03-26-2022 13:25-0400 Body weight 90.27 kg Cynthia Durant APRN-TURN OPERATOR Work Phone: [facility] 01-16-2022 13:12-0400 Body height 165.1 cm Kee Serrato MD Work Phone: [facility] 01-16-2022 13:12-0400 Body mass index (BMI) [Ratio] 33.25 kg/m2 Kee Serrato MD Work Phone: [facility] 01-16-2022 13:12-0400 Body temperature 97.59 [degF] Kee Serrato MD Work Phone: [facility] 01-16-2022 13:12-0400 Body weight 90.63 kg Kee Serrato MD Work Phone: [facility] 12-06-2021 12:52-0400 Body height 165.1 cm Rafael Hernandez DO Work Phone: [facility] 12-06-2021 12:52-0400 Body mass index (BMI) [Ratio] 34.35 kg/m2 Rafael Riehm DO Work Phone: 2([phone] [place] [address] 12-06-2021 12:52-0400 Body temperature 97.9 [degF] Rafael Riehm DO Work Phone: 5([phone] [place] [address] 12-06-2021 12:52-0400 Body weight 93.62 kg Rafael Riehm DO Work Phone: 2(267)[phone] [place] [address] 10-25-2021 11:17-0400 Body height 165.1 cm Rafael Riehm DO Work Phone: 1(021)141-662611 [place] [address] 10-25-2021 11:17-0400 Body mass index (BMI) [Ratio] 33.38 kg/m2 Rafael Riehm DO Work Phone: 8(116)[phone] [place] [address] 10-25-2021 11:17-0400 Body temperature 97.7 [degF] Rafael Riehm DO Work Phone: 2(226)[phone] [place] [address] 10-25-2021 11:17-0400 Body weight 90.99 kg Rafael Marym DO Work Phone: 7([phone])[phone] [place] [address] 06-05-2021 16:15-0500 Body height 162.56 cm Jose Weber II Other [employer] Other 06-05-2021 16:15-0500 Body mass index (BMI) [Ratio] 32.78 kg/m2 Jose Weber II Other [employer] Other 06-05-2021 16:15-0500 Body weight 86.64 kg Jose Weber II Other [employer] Other 04-09-2021 09:30-0400 Body height 162.56 cm Yehuda Camara Other [employer] Other 04-09-2021 09:30-0400 Body mass index (BMI) [Ratio] 32.61 kg/m2 Yehuda Camara Other [facility] [employer] Other 04-09-2021 09:30-0400 Body weight 86.18 kg Yehuda Camara Other [employer] Other Encounters Encounter Date Encounter Type Care Provider Facility Start: 03-04-2023 ambulatory SELF SELF [facility] Start: 03-04-2023 End: 03-04-2023 Office outpatient visit 15 minutes Cynthia Durant ROLLER INSPECTOR AND MENDER-TURN OPERATOR Work Phone: [facility] Comment on above: Hx of total knee art hroplasty, right (Primary Dx) Start: 03-04-2023 End: 03-04-2023 Subsequent hospital visit by physician Cynthia Durant ROLLER INSPECTOR AND MENDER-TURN OPERATOR Work Phone: [facility] Start: 11-01-2022 End: 11-01-2022 ambulatory BRIANNA ROMERO Facility:[facility] Start: 06-25-2022 ambulatory KEE SERRATO [facility] Start: 06-25-2022 End: 06-25-2022 Office outpatient visit 15 minutes Kee Serrato MD Work Phone: [facility] Comment on above: Hx of total knee art hroplasty, right (Primary Dx) Start: 06-25-2022 End: 06-25-2022 Subsequent hospital visit by physician Kee Serrato MD Work Phone: [facility] Start: 05-23-2022 End: 05-23-2022 ambulatory MD Rafa Verdin Work Phone: [facility] Work Phone: Start: 05-23-2022 End: 05-23-2022 Discharged Recurring MD Rafa Verdin Work Phone: [facility] [place] Start: 04-24-2022 End: 04-25-[address] DAWN MUNOZ . Facility:[facility] Start: 04-16-2022 ambulatory CYNTHIA RAN [facility] Start: 04-16-2022 End: 04-16-2022 Postop follow up visit related to original px Cynthia Durant ALICIATURN OPERATOR Work Phone: [facility] Comment on above: Hx of total knee art hroplasty, right (Primary Dx) Start: 03-26-2022 ambulatory SELF SELF [facility] Start: 03-26-2022 End: 03-26-2022 Postop follow up visit related to original px Cynthia Durant LIGIA-TURN OPERATOR Work Phone: [facility] Comment on above: Hx of total knee art hroplasty, right (Primary Dx) Start: 03-26-2022 End: 03-26-2022 Subsequent hospital visit by physician Cynthia GUTIERREZ Work Phone: [facility] Start: 03-11-2022 End: 03-11-2022 ambulatory KEE SERRATO Facility: Start: 02-11-2022 End: 02-12-[address] DAWN MUNOZ . Facility: Start: 02-06-2022 End: 02-06-[address] DAWN MUNOZ . Facility: Start: 01-16-2022 End: 01-16-2022 Office outpatient visit 40 minutes Kee Serrato MD Work Phone: [facility] Comment on above: Right knee pain, uns pecified chronicity (Primary Dx) Start: 01-16-2022 End: 01-16-2022 Office outpatient visit 25 minutes Rafael Hernandez DO Work Phone: 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 Facili ty:[facility] Start: 11-13-2021 End: 11-14-[address] RAFA VERDIN . Facility: Start: 10-25-2021 End: 10-25-2021 Office outpatient visit 25 minutes Rafael Hernandez DO Work Phone: [facility] Comment on above: Primary localized os teoarthritis of right hip (Primary Dx) Start: 10-10-2021 End: 10-10-2021 Office outpatient new 30 minutes Kee Serrato MD Work Phone: [facility] Comment on above: Primary localized os teoarthritis of right hip (Primary Dx); Pain in prosthetic joint, initial encounter Start: 09-06-2021 End: 09-06-2021 ambulatory Yehuda Camara Facility:[facility] Start: 08-13-2021 End: 08-13-2021 ambulatory Jose Weber II Other [employer] Other Start: 08-13-2021 Telephone encounter Jose Weber II [facility] Start: 08-12-2021 End: 08-12-2021 ambulatory Jose Weber II Other [employer] Other Start: 08-12-2021 Telephone encounter Jose Jaiden II [facility] Start: 07-30-2021 End: 07-30-2021 ambulatory Jose Weber II Other [employer] Other Start: 07-30-2021 Telephone encounter Jose Jaiden II [facility] Start: 06-24-2021 End: 06-24-2021 ambulatory Jose Weber II Other [employer] Other Start: 06-24-2021 Telephone encounter Jose Weber II [facility] Start: 06-19-2021 (Procedure) Curtis Stephenson [facility] Start: 06-19-2021 End: 06-19-2021 ambulatory Rick Stephenson Other [employer] Other Start: 06-05-2021 End: 06-05-2021 ambulatory Jose Hwang II Other [employer] Other Start: 06-05-2021 Office outpatient ne w 45 minutes Jose Hwang II [facility] Start: 05-07-2021 End: 05-07-2021 ambulatory Yehuda Camara Other [employer] Other Start: 05-07-2021 Office outpatient vi sit 15 minutes Yehuda Camara [facility] [place] Start: 04-09-2021 Office outpatient vi sit 15 minutes Yehuda Camara [facility] Start: 09-07-2019 End: 09-07-2019 Patient encounter procedure Rafa Hoy [facility] [place] [facility] Start: 05-02-2019 End: 05-03-2019 Admission to day surgery [facility] -Surgery [facility] Start: 12-02-2018 End: 12-02-2018 Discharged Recurring [facility] -Physical Therapy [facility] [place] Procedures Date Procedure Procedure Detail Performing Clinician [...] 03-06-2023 Influenza vaccination INFLUENZA VACC INE (#1) [facility] Start: 03-04-2023 End: 03-04-2023 Patient encounter procedure 03/04/2023 Office Visit Orthopaedics Cynthia Durant, ROLLER INSPECTOR AND MENDER-TURN OPERATOR [address] [id number] [facility] Start: 06-25-2022 End: 06-25-2022 Patient encounter procedure 06/25/2022 Office Visit Orthopaedics Kee Serrato MD [address] [place] [address], [place] [address] [facility] Start: 04-24-2022 End: 04-24-2022 Patient encounter procedure 04/24/2022 Office Visit Orthopaedics Rafael Hernandez, DO [address] [place] [address], [place] [address] [facility] Start: 04-16-2022 End: 04-16-2022 Patient encounter procedure 04/16/2022 Office Visit Orthopaedics Cynthia Durant APRN-BLAYNE [address] [place] [address], [place] [address] [facility] Start: 03-06-2022 Influenza vaccination INFLUENZA VACC INE (#1) [facility] Start: 03-04-2022 End: 03-04-2022 Evaluation and management of inpatient [facility] Comment on above: 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, initial encounter REVISION ARTHROPLAST Y KNEE - right Start: 03-04-2022 End: 03-04-2022 REVISION ARTHROPLASTY KNEE REVISION ARTHROPLASTY KNEE 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, initial encounter 03/04/2022 10:00 AM EDT [facility] Start: 02-13-2022 End: 02-13-2022 ambulatory 02/13/2022 Pre-Operative Nurse Assessment Internal Medicine [facility] Start: 02-06-2022 End: 02-06-2022 ambulatory 02/06/2022 Pre-Operative Nurse Assessment Internal Medicine [facility] Start: 01-17-2022 End: 01-17-2022 Patient encounter procedure 01/17/2022 Office Visit Orthopaedics Rafael Hernandez, DO [address] [place] [address], [place] [address] [facility] Start: 12-06-2021 End: 12-06-2022 NM Bone 3 Phase Views NUC 3 PHASE LIMITED BONE SCAN Imaging Routine 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, subsequent encounter Expected: 12/06/2021, Expires: 12/06/2022 [facility] Comment on above: Expected: 12/06/2021 , Expires: 12/06/2022 Start: 12-06-2021 End: 12-06-2021 Patient encounter procedure 12/06/2021 Office Visit Orthopaedics Rafael Hernandez, DO [address] [place] [address] [facility] Start: 10-30-2021 COVID-19 VACCINE (4 - Booster for Pfizer series) COVID-19 VACCINE (4 - Booster for Pfizer series) [facility] Start: 08-26-2021 COVID-19 VACCINE (4 - Booster for Pfizer series) COVID-19 VACCINE (4 - Booster for Pfizer series) [facility] Start: 08-26-2021 COVID-19 VACCINE (4 - Pfizer series) COVID-19 VACCINE (4 - Pfizer series) [facility] Start: 2008 Zoster vaccine hzv l ruddy for subcutaneous use ZOSTER (SHINGLES) VACCINE (1 of 2) [facility] Start: 12-10-2003 Colonoscopy COLORECTAL CAN CER SCREENING DISCUSSION [facility] Start: 12-10-2003 Screening for malign ant neoplasm of colon COLORECTAL CANCER SCREENING DISCUSSION [facility] Start: 1998 Fasting lipid profile LIPID SCREENIN G [facility] Start: 1998 Lipid panel LIPID SCREENING [facility] Start: 1998 Screening for malign ant neoplasm of breast MAMMOGRAM SCREENING DISCUSSION [facility] Start: 1998 Screening mammography MAMMOGRA M SCREENING DISCUSSION [facility] Start: 12-10-1979 Screening for malign ant neoplasm of cervix CERVICAL CANCER SCREENING DISCUSSION [facility] Start: 1977 Third diphtheria, tetanus and acellular pertussis (DTaP) vaccination TDAP (ADULT) [facility] Start: 1976 Tetanus vaccination [facility] Start: 06-06-1974 HIV screening HIV SCREENING DISCUSSION [facility] Start: 1960 Hepatitis B vaccination HEP B VACCINE (1 of 3 - 3-dose series) [facility] Start: 1960 Hepatitis C antibody , confirmatory test HEPATITIS C VIRUS SCREENING [facility] Start: 1958 Hepatitis C screening HEPATITI S C VIRUS SCREENING [facility] Start: 1960 Tetanus vaccination [facility] Radiography for bone length studies XR BONE LENGTH STUDY Imaging Routine Pain in prosthetic joint, initial encounter 10/10/2021 12:54 PM EDT [facility] Radiography for bone length studies XR BONE LENGTH STUDY Imaging Routine Hx of total knee arthroplasty, right 06/25/2022 10:52 AM EST [facility] Work Phone: XR Knee - left 3 Views XR KNEE L EFT 3 VIEWS Imaging Routine Pain in prosthetic joint, initial encounter 10/10/2021 12:54 [facility] Knee - right 3 Views XR KNEE RIGHT 3 VIEWS Imaging Routine Pain in prosthetic joint, initial encounter 10/10/2021 12:54 PM EDT [facility] XR Knee - right 3 Views XR KNEE RIGHT 3 VIEWS Imaging Routine Hx of total knee arthroplasty, right 03/26/2022 1:03 PM EDT [facility] XR Knee - right 3 Views XR KNEE RIGHT 3 VIEWS Imaging Routine Hx of total knee arthroplasty, right 04/16/2022 1:26 PM EDT [facility] XR Knee - right 3 Views XR KNEE RIGHT 3 VIEWS Imaging Routine Hx of total knee arthroplasty, right 06/25/2022 10:52 AM EST [facility] XR Knee - right 3 Views XR KNEE RIGHT 3 VIEWS Imaging Routine Hx of total knee arthroplasty, right 03/04/2023 10:58 AM EDT [facility] Immunizations Immunization Date Immunization Notes Care Provider Fa [facility] 04-24-2022 influenza virus vaccine, unspecified formulation Cynthia Durant APRN-TURN OPERATOR Work Phone: [facility] 05-24-2021 influenza virus vaccine, unspecified formulation Rafael Hernandez DO Work Phone: [facility] 12-16-2018 Kenalog -40 mg Yehuda Camara Other [employer] Other 09-22-2018 Kenalog -40 mg Yehuda Camara Other [employer] Other 05-17-2018 Euflexxa Yehuda Camara Other [employer] Other 05-10-2018 Euflexxa Yehuda Camara Other [employer] Other 05-03-2018 Euflexxa Yehuda Camara Other [employer] Other 04-13-2018 Kenalog -40 mg Yehuda Camara Other [employer] Other 11-03-2017 Kenalog -40 mg Yehuda Camara Other [employer] Other 02-24-2017 Kenalog -40 mg Yehuda Camara Other [employer] Other 12-11-2016 Kenalog -40 mg Yehuda Camara Other [employer] Other Payers Date Payer Category Payer Self-pay [id number] 2002 Unknown [id number] 1959 Unknown [id number] 1959 Unknown [id number] 1959 Unknown [id number] 1958 Unknown [id number] 2.16.84 0.1.635887.3.579.2.593 1958 Unknown [id number] 2.16.84 0.1.858568.3.579.2.593 1958 Unknown [id number] 2.16.84 0.1.765833.3.579.2.593 1958 Unknown [id number] 2.16.84 0.1.586564.3.579.2.593 1958 Unknown [id number] 2.16.84 0.1.592321.3.579.2.593 1958 Unknown [id number] 2.16.84 0.1.337705.3.579.2.593 1958 Unknown [id number] 2.16.84 0.1.970301.3.579.2.593 1958 Unknown [id number] 2.16.8 40.1.409612.3.579.2.983 1958 Unknown [id number] 2.16.8 40.1.687935.3.579.2.983 1958 Unknown [id number] 2.16.8 40.1.009068.3.579.2.983 1958 Unknown [id number] 2.16.8 40.1.701275.3.579.2.983 1958 Unknown [id number] 2.16.8 40.1.070807.3.579.2.983 1958 Unknown [id number] 2.16.8 40.1.456474.3.579.2.983 1958 Unknown [id number] 2.16.8 40.1.054428.3.579.2.983 1958 Unknown [id number] 2.16.8 40.1.710330.3.579.2.983 Unknown [id number] 2.16.8 40.1.437877.3.579.2.531 Unknown [id number] 2.16.8 40.1.069024.3.579.2.531 Unknown [id number] 2.16.8 40.1.351898.3.579.2.531 Social History Date Type Detail Facility Start: 05-02-2019 End: 10-10-2021 Tobacco smoking status NHIS Never smoked tobacco (finding) [facility] Start: 1960 Sex Assigned At Female F [facility] Start: 10-10-2021 Tobacco use and exposure Smokeless tobacco non-user [employer] Start: 10-10-2021 End: 03-04-2023 Alcohol intake Ex-drinker (finding) [facility] Start: 1960 Sex Assigned At Not on file [facility] [employer] Start: 03-04-2023 Sex Assigned At N [employer] Other Start: 02-22-2022 End: 03-04-2022 Exposure to SARS-CoV-2 (event) Not sure [facility] Start: 03-04-2023 History of Social function [facility] Medical Equipment Procedure Code Equipment Code Equipment [...] knee, total, minimally invasive Orthopaedic cement, non-medicated ([id number] FDA Start: 05-02-2019 Arthroplasty, knee, total, minimally [...] total, minimally invasive Uncoated knee femur prosthesis ()[id number] FDA Start: 05-02-2019 Arthroplasty, knee, total, minimally invasive Tibial insert ()[id number] FDA Start: 05-02-2019 Arthroplasty, knee, total, minimally invasive Polyethylene patella prosthesis ()[id number] FDA Start: 05-02-2019 Arthroplasty, knee, total, minimally invasive Uncoated knee tibia prosthesis, metallic ()[id number] FDA Start: 05-02-2019 Rotating Platfor m Insert [id number] Start: 03-04-2022 Goals Date Patient Goal Desired Activity /State Clinical Notes 09-03-2018 to 03-04-2023 Bel Rothman - 03/04/2023 11:00 AM Elvis Durant APRN-[facility] - 03/04/2023 11:00 AM Chantelle Rosario LPN - 06/25/2022 11:10 AM Brenda Serrato MD - 06/25/2022 11:10 AM EST Note Date & Type Note Facility 03-04-2023 History of Presen t illness Narrative Ortho Nurse - Established Patient Intake Room#: 4 Date: 03/04/2023 11:27 AM Patient: Katt Rahman MR#: [id number] : 1960 Age: 62 y.o. 1yr R TKA Pt stated she is doing better than what is was, but is having back issues and her hip is bothering her. Pt has pain and stiffness at times if sitting to long 4/10 on the pain scale. Referring Physician: Self, Self Insurance: Payor: JESSENIA EXCHANGE / [facility] / Product Type: *No Product type* / [...] by Nasal route once for 1 dose. [place] into the nose as directed. Call 911. [...] by Nasal route once for 1 dose. [place] into the nose as directed. Call 911. [...] have reviewed the findings of the clinical bilingual patient support caseworker and agree with their assessment. Ortho Nurse - Established Patient Intake Room#: 4 Date: 03/04/2023 11:27 AM Patient: Katt Rahman MR#: [id number] : 1960 Age: 62 y.o. 1yr R TKA Pt stated she is doing better than what is was, but is having back issues and her hip is bothering her. Pt has pain and stiffness at times if sitting to long 4/10 on the pain scale. Referring Physician: Self, Self Insurance: Payor: [employer]CHANGE / Plan: [employer] / Product Type: *No Product type* / [...] by Nasal route once for 1 dose. [place] into the nose as directed. Call 911. [...] by Nasal route once for 1 dose. [place] into the nose as directed. Call 911. [...] lisinopril. documented in this encounter [facility] 06-25-2022 History of Presen t illness Narrative Ortho Nurse - Established Patient Intake Room#: 3--4 month post-op visit of Right Knee revision (03-05-22). Her pain is a 3 today. She has continued to do home exercise. She still has pain when going up and down stairs. Date: 06/25/2022 11:38 AM Patient: Katt Rahman MR#: [id number] : 1960 Age: 61 y.o. Referring Physician: [...] by Nasal route once for 1 dose. [place] into the nose as directed. Call 911. [...] have reviewed the findings of the clinical bilingual patient support caseworker and agree with their assessment. Ortho Nurse - Established Patient Intake Room#: 3--4 month post-op visit of Right Knee revision (03-05-22). Her pain is a 3 today. She has continued to do home exercise. She still has pain when going up and down stairs. Date: 06/25/2022 11:38 AM Patient: Katt Rahman MR#: [id number] : 1960 Age: 61 y.o. Referring Physician: [...] by Nasal route once for 1 dose. [place] into the nose as directed. Call 911. [...] lisinopril. documented in this encounter [facility] 04-16-2022 History of Presen t illness Narrative Ortho Nurse - Established Patient Intake Room#: 4 Date: 04/16/2022 1:39 PM Patient: Katt Rahman MR#: [id number] : 1960 Age: 61 y.o. R TKA [...] by Nasal route once for 1 dose. [place] into the nose as directed. Call 911. [...] by Nasal route once for 1 dose. [place] into the nose as directed. Call 911. [...] SUBJECTIVE: Katt is an established patient of [facility]. Here today for followup. She is now [...] any questions or concerns in the meantime. (DOC:[id number]) I have reviewed the findings of the clinical bilingual patient support caseworker and agree with their assessment. MATT Matos Ortho Nurse - Established Patient Intake Room#: 4 Date: 04/16/2022 1:39 PM Patient: Katt Rahman MR#: [id number] : 1960 Age: 61 y.o. R TKA [...] by Nasal route once for 1 dose. [place] into the nose as directed. Call 911. [...] by Nasal route once for 1 dose. [place] into the nose as directed. Call 911. [...] lisinopril. documented in this encounter [facility] 03-26-2022 History of Presen t illness Narrative Ortho Nurse - Established Patient Intake Room#: 5 Date: 03/26/2022 1:26 PM Patient: Katt Rahman MR#: [id number] : 1960 Age: 61 y.o. 3 wks [...] by Nasal route once for 1 dose. [place] into the nose as directed. Call 911. [...] by Nasal route once for 1 dose. [place] into the nose as directed. Call 911. [...] understanding. All pertinent portions of the clinical bilingual patient support caseworker documentation was reviewed and agree. MATT Matos I have reviewed the findings of the clinical bilingual patient support caseworker and agree with their assessment. MATT Matos Ortho Nurse - Established Patient Intake Room#: 5 Date: 03/26/2022 1:26 PM Patient: Katt Rahman MR#: [id number] : 1960 Age: 61 y.o. 3 wks [...] by Nasal route once for 1 dose. [place] into the nose as directed. Call 911. [...] by Nasal route once for 1 dose. [place] into the nose as directed. Call 911. [...] lisinopril. documented in this encounter [facility] 01-16-2022 History of Presen t illness Narrative Ortho Nurse - Established Patient Intake Room#: 1 Date: 01/16/2022 1:15 PM Patient: Katt Rahman MR#: [id number] : 1960 Age: 61 y.o. Hx of Bilat tka by Dr Camara in 2019. Bilat knee pain R>L R knee pain and had a bone scan by Lindsay at [facility] in [place] showing possible loosening. 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 We have discussed in great detail [...] nasal MRSA screening, scheduling an appointment for [facility] and the potential surgical date, and reviewing [...] Cough documented in this encounter [facility] 01-16-2022 History of Presen t illness Narrative [...] this note may have been created with [employer] or other software which leads to grammatical and typographical errors which are not telephone sales representative of the intent with my spoken [...] this note may have been created with [employer] or other software which leads to grammatical and typographical errors which are not telephone sales representative of the intent with my spoken words. Clinical assistant general manager/AT/MA was acting as a scribe today for [...] DO documented in this encounter [facility] 12-06-2021 History of Presen t illness Narrative [...] TKA in [address] Camara at [facility]. IMPRESSION/PLAN: Pertinent medical office records and imaging [...] this note may have been created with [employer] or other software which leads to grammatical and typographical errors which are not telephone sales representative of the intent with my spoken [...] TKA in [address] Camara at [facility]. IMPRESSION/PLAN: Pertinent medical office records and imaging [...] be done close to her home at [facility]. Follow-up in 6 weeks. Visit Vitals Temp 97.9 F (36.6 C) (Temporal) Ht 1.651 m (5' 5 ) Wt 93.6 kg (206 lb 6.4 oz) BMI 34.35 kg/m *Portions of this note may have been created with [employer] or other software which leads to grammatical and typographical errors which are not telephone sales representative of the intent with my spoken words. Clinical assistant general manager/AT/MA was acting as a scribe today for [...] DO documented in this encounter [facility] 10-25-2021 History of Presen t illness Narrative [...] this note may have been created with [employer] or other software which leads to grammatical and typographical errors which are not telephone sales representative of the intent with my spoken [...] TKA [place] [address] Camara at [facility]. Pt describes that she got B/L hip [...] this note may have been created with [employer] or other software which leads to grammatical and typographical errors which are not telephone sales representative of the intent with my spoken words. Clinical assistant general manager/AT/MA was acting as a scribe today for [...] DO documented in this encounter [facility] 10-10-2021 History of Presen t illness Narrative Ortho Nurse - Patient Intake Room#: 2---Visit today for bilateral knee pain. She had bilateral TKA. Her right was done 05-02-2019 and left 09-27-2018. Dr. Camara from [place]. She has had pain in her knees [...] 10/10/2021 1:17 PM Patient: Katt Rahman MR#: [id number] : 1960 Age: 60 y.o. Referring Physician: [...] [x]cane, []bracing Are you followed by a waste machine tender? [] [x] Name: Are you followed by [...] Cough documented in this encounter [facility] 06-05-2021 Evaluation note Encounter Date Diagnosis Assessment [...] diagnostic purposes, possibly just a lidocaine injection. [employer] Other 11-02-2021 Evaluation note* Encounter Date Diagnosis [...] total left knee replacement (ICD-10 - Z96.652) [employer] Other 10-05-2021 Evaluation note* Encounter Date Diagnosis [...] total left knee replacement (ICD-10 - Z96.652) [employer] Other 07-08-2021 NoteChief Complaint referral for EGD [...] and bloating 2 weeks ago, admitted to [facility]; ct scan of abdominal with evidence [...] see# 1 3. NSAID long-term use (Z79.1: custodial (current) use of non-steroidal anti- inflammatories (NSAID)) [...] Once a day (a (more content not included)...[facility]Result Comment: Electronically Signed By: MIRIAM BRONSON, Tan Gross\Date and Time Signed: 01/10/21 16:27 [id number] NoteGastroenterology Upper Endoscopy, Adult Upper endoscopy is [...] including vitamins, herbs, eye drops, creams, and xyny-zds-sajjsmm medicines. ? Any problems you or family [...] tells you to take them. ? Taking dxyt-djn-ttnzyii medicines, vitamins, herbs, and supplements. General instructions [...] Document Released: 06/19/2001 Documerick (more content not included)...[facility] History general Narrative - Reported* Type Description Date Medical History diabetes Medical History high cholesterol Medical History ulcers Surgical History ovarian cyst removal Surgical History left TKA 09/2018 Surgical History RTKA 04/2019 Hospitalization History see above [place] [employer] Other Evaluation note* Diagnosis Primary localized osteoarthritis of right hip- Primary Pain in prosthetic joint, initial encounter [facility]* Diagnosis Primary localized osteoarthritis of right hip- Primary documented in this encounter [facility]* Diagnosis Right hip pain- Primary Pain in joint, pelvic region and thigh 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, subsequent encounter documented in this encounter [facility] noteNo InformationNort [employer] Other Evaluation note* Diagnosis Right hip pain- Primary Pain in joint, pelvic region and thigh Primary localized osteoarthritis of right hip documented [facility] this [facility]* Diagnosis Right knee pain, unspecified chronicity- Primary 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, initial encounter documented in this encounter [facility]* Diagnosis Hx of total knee arthroplasty, right- Primary documented in this encounter [facility]* Diagnosis Hx of total knee arthroplasty, right- Primary documented in this encounter [facility] Group[facility] noteNo assessment information [facility]Guernsey [facility] Work Phone: Evaluation note* Diagnosis Hx of total knee arthroplasty, right- Primary documented in this encounter [facility] (narrative[facility] Consultation (Routine) - New Request Specialty Diagnoses / Procedures Referred By Elsy segal Referred To Contact [facility] Sports Diagnoses Primary localized osteoarthritis of right hip Kee Serrato MD [address] [place] [address] Rafael Hernandez DO [address] [place] [address] Referral ID Status Reason Start Date Expiration Date V isits Requested Visits Authorized [id number] New Request 10/10/2021 11/04/2022 1 1 * Diagnostic X-Ray (Routine) - Pending Review Specialty Diagnoses / Procedures Referred By Contac t Referred To Contact Diagnoses Pain in prosthetic joint, initial encounter Procedures XR KNEE RIGHT 3 VIEWS Kee Serrato MD [address] [place] [phone] Referral ID Status Reason Start Date Expiration Date V isits Requested Visits Authorized [id number] Pending Review 10/10/2021 11/04/2022 1 1 * Diagnostic X-Ray (Routine) - Pending Review Specialty Diagnoses / Procedures Referred By Contac t Referred To Contact Diagnoses Pain in prosthetic joint, initial encounter Procedures XR KNEE LEFT 3 VIEWS Kee Serrato MD [address] [place] [phone] Referral ID Status Reason Start Date Expiration Date V isits Requested Visits Authorized [id number] Pending Review 10/10/2021 11/04/2022 1 1 * Diagnostic X-Ray (Routine) - Pending Review Specialty Diagnoses / Procedures Referred By Contac t Referred To Contact Diagnoses Pain in prosthetic joint, initial encounter Procedures XR BONE LENGTH STUDY Kee Serrato MD [address] [place] [phone] Referral ID Status Reason Start Date Expiration Date V isits Requested Visits Authorized [id number] Pending Review 10/10/2021 11/04/2022 1 1 [facility] Advance Directives No Advanced Directives Records Found [...] Procedures NUC 3 PHASE LIMITED BONE SCAN UT BONE IMAGING, 3 PHASE Rafael Hernandez DO [address] [place] [address] Referral ID Status Reason Start Date Expiration Date V isits Requested Visits Authorized [id number] New Request 12/06/2021 12/31/2022 2 2 Specialty Diagnoses / Procedures Referred By Contac t Referred To Contact Diagnoses Hx of total knee arthroplasty, right Procedures XR KNEE RIGHT 3 VIEWS Cynthia Durant, ROLLER INSPECTOR AND [employer]ENDER-TURN OPERATOR [address] [place] [address] Referral ID Status Reason Start Date Expiration Date V isits Requested Visits Authorized [id number] New Request 03/14/2022 04/08/2023 1 1 Referral ID Status Reason Start Date Expiration Date V isits Requested Visits Authorized [id number] New Request 04/04/2022 04/29/2023 1 1 Specialty Diagnoses / Procedures Referred By Contac t Referred To Contact Diagnoses Hx of total knee arthroplasty, right Procedures XR KNEE RIGHT 3 VIEWS Kee Serrato MD [address] [place] [phone] Referral ID Status Reason Start Date Expiration Date V isits Requested Visits Authorized [id number] New Request 06/18/2022 07/13/2023 1 1 Specialty Diagnoses / Procedures Referred By Contac t Referred To Contact Diagnoses Hx of total knee arthroplasty, right Procedures XR BONE LENGTH STUDY Kee Serrato MD [address] [place] [phone] Referral ID Status Reason Start Date Expiration Date V isits Requested Visits Authorized [id number] New Request 06/18/2022 07/13/2023 1 1 Referral ID Status Reason Start Date Expiration Date V isits Requested Visits Authorized [id number] Pending Review 03/03/2023 03/27/2024 1 1 Additional Source Comments INFORMATION SOURCE (unrecogn ized section and content) DATE CREATED AUTHOR 04/26/2021 Abraham Guerrier [facility] DATE CREATED AUTHOR AUTHOR'S ORGANIZ ATION 06/25/2022 [facility] DATE CREATED AUTHOR AUTHOR'S ORGANIZ ATION 11/03/2022 [facility] [place] [facility] DATE CREATED AUTHOR AUTHOR'S ORGANIZ ATION 03/07/2023 [facility] Reason for Visit (unrecogniz ed section and content) Reason Comments Pain New Patient Reason Comments Pain Specialty Diagnoses / Procedures Referred By Contac t Referred To Contact [facility] Sports Diagnoses Primary localized osteoarthritis of right hip Kee Serrato MD [address] [place] [address] Rafael Hernandez DO [address] [place] [phone] Referral ID Status Reason Start Date Expiration Date V isits Requested Visits Authorized [id number] New Request 10/10/2021 11/04/2022 1 1 Reason Comments Pain Reason Comments Pain Follow-up Specialty Diagnoses / Procedures Referred By Contac t Referred To Contact Diagnoses Hx of total knee arthroplasty, right Procedures XR KNEE RIGHT 3 VIEWS Cynthia Durant APRN-BLAYNE [address] [place] [address] Referral ID Status Reason Start Date Expiration Date V isits Requested Visits Authorized [id number] New Request 03/14/2022 04/08/2023 1 1 Reason Comments Post Op Visit Reason Comments Follow-up Specialty Diagnoses / Procedures Referred By Contac t Referred To Contact Diagnoses Hx of total knee arthroplasty, right Procedures XR KNEE RIGHT 3 VIEWS Kee Serrato MD [address] [place] [phone] Referral ID Status Reason Start Date Expiration Date V isits Requested Visits Authorized [id number] New Request 06/18/2022 07/13/2023 1 1 Reason Comments Pain Post Op Visit Referral ID Status Reason Start Date Expiration Date V isits Requested Visits Authorized [id number] Pending Review 03/03/2023 03/27/2024 1 1 Care Teams (unrecognized sec tion and content) [employer] Plant Electric[employer] Relationship Specialty Start Date End Date Rafa Verdin MD [address] [place] [address] [place] [address] PCP - General Family Medicine 10/10/21 Power Plant Electrician Relationship Specialty Start Date End Date Rafa Verdin MD [address] [place] [address] [place] [address] PCP - General Family Medicine 10/10/21 Power Plant Electrician Relationship Specialty Start Date End Date Rafa Verdin MD [address] [place] [address] [place] [address] PCP - General Family Medicine 10/10/21 Power Plant Electrician Relationship Specialty Start Date End Date Rafa Verdin MD [address] [facility] [address] [place] [address] PCP - General Family Medicine 10/10/21 Power Plant Electrician Relationship Specialty Start Date End Date Rafa Verdin MD [address] [facility] [address] [place] [address] PCP - General Family Medicine 10/10/21 Power Plant Electrician Relationship Specialty Start Date End Date Rafa Verdin MD [address] [facility] [address] [place] [address] PCP - General Family Medicine 10/10/21 Power Plant Electrician Relationship Specialty Start Date End Date Rafa Verdin MD [address] [place] [address] [place] [address] PCP - General Family Medicine 10/10/21 Power Plant Electrician Relationship Specialty Start Date End Date Rafa Verdin MD [address] [place] [address] [place] [address] PCP - General Family Medicine 10/10/21 Team Status: Inactive Member Role Status Dates Rafa Verdin MD Primary Care Provider Active Kee Serrato MD Attending Provider Active Team Status: Active Member Role Status Dates Rafa Verdin MD Primary Care Provider Active [employer] Electric[employer] Relationship Specialty Start Date End Date Rafa Verdin MD [address] [place] [address] PCP - General Family Medicine 10/10/21 Power Plant Electrician Relationship Specialty Start Date End Date Rafa Verdin MD [address] [place] [address] PCP - General Family Medicine 10/10/21 Power Plant Electrician Relationship Specialty Start Date End Date Rafa Verdin MD [address] [place] [address] PCP - General Family Medicine 10/10/21 Power Plant Electrician Relationship Specialty Start Date End Date Rafa Verdin MD [address] [place] [address] PCP - General Family Medicine 10/10/21 Goals [...] BE BASED ON THE PRIMARY CLINICAL RECORDS. [facility]. provides no warranty or guarantee of the accuracy or completeness of information in this document.
== END 2024-02-15 20:22 | disposition home or self-care (01) ==
LOC: LAB 20:21
PROVIDERS: PCP Family Medicine; Visit Provider Obstetrics & Gynecology
DX: Z01.419 Encounter for gynecological examination (general) (routine) without abnormal findings (principal)
CPT/HCPCS: 87624; 88175

== ENCOUNTER 2024-05-13 07:45 | Outpatient (OUT) | payer MEDICARE, BC, SELFPAY ==
--- OUTSIDE RECORDS SUMMARY | 2024-05-13 07:47 | XMS_ITS | CCD ---
Author Organization [facility] Inform ion [facility] Care Team Providers Care Ortho Assistant Name Role Phone Rafa Verdin Primary Care Provider UnavailYehuda Jordan Attending Provider Unavailable Rafa Verdin MD Primary Care Provider [phone] Yehuda Camara Unavailable Jose Hwang II Unavailable Rick Stephenson Unavailable Rafa Verdin MD Primary Care Provider [phone] MD Rafa Verdin Primary Care Provider [phone] MD Kee Serrato Attending Provider [phone] Kee Serrato Attending Unavailable Kee Serrato Admitting Unavailable Rafa Verdin Primary Care Unavailable Rafael Hernandez Attending Unavailable Rafael Hernandez Admitting Unavailable Rafa Verdin Primary Care Unavailable Yehuda Camara Attending Unavailable Yehuda Camara Admitting Unavailable Rafa Verdin Primary Care Unavailable BRIANNA ROMERO Admitting Unavailable MARE Avendaño, DR CRAIG Primary Care Unavailable BRIANNA ROMERO Attending Unavailable BRIANNA ROMERO Consulting Unavailable DAYANA DUTTA Consulting Unavailable MARE ., DR CRAIG Admitting Unavailable HOY ., DR CRAIG Attending Unavailable HOY ., DR CRAIG Primary Care Unavailable HOY ., DR CRAIG Admitting Unavailable MARE ., DR CRAIG Referring Unavailable RAYMONDY ., DR CRAIG Attending Unavailable MARE ., DR CRAIG Consulting Unavailable RAYMONDY ., DR CRAIG Primary Care Unavailable TAMMY ., DR SEYMOUR Admitting Unavailable TAMMY ., DR SEYMOUR Attending Unavailable HOY ., DR CRAIG Primary Care Unavailable TAMMY ., DR SEYMOUR Consulting Unavailable TAMMY ., DR SEYMOUR Admitting Unavailable TAMMY ., DR SEYMOUR Attending Unavailable SHAZIA, DR RENETTA Akhtar Consulting Unavailable MARE ., DR CRAIG Primary Care Unavailable TAMMY ., DR SEYMOUR Consulting Unavailable KEE SERRATO Admitting Unavailable MARE ., DR CRAIG Primary Care Unavailable KEE SERRATO Attending Unavailable KEE SERRATO Consulting Unavailable TAMMY ., DR SEYMOUR Admitting Unavailable TAMMY ., DR SEYMOUR Attending Unavailable SHAZIA, DR RENETTA Akhtar Consulting Unavailable RAYMONDY ., DR CRAIG Primary Care Unavailable TAMMY ., DR SEYMOUR Consulting Unavailable Rafa Verdin MD Primary Care Provider [phone] SELF, SELF Referring Unavailable RAN, CYNTHIA Attending [...] CYNTHIA Referring Unavailable NICOLE, KEE Attending Unavailable HOY, RAFA M Primary Care Unavailable NICOLE, KEE Referring Unavailable SELF, SELF Referring Unavailable HOY, RAFA M Primary Care Unavailable NICOLE, KEE Attending Unavailable RAN, CYNTHIA Referring Unavailable RAN, CYNTHIA Attending Unavailable HOY, RAFA M Primary Care Unavailable TAMMY, DAWN Attending Unavailable Unavailable Unavailable Unavailable Allergies Allergy Classification Reported Allergen(s) Allergy Type Date of Onset Reaction(s) Facility (17 sources) Diclofenac; Translations: [diclofenac] Drug Allergy 07-06-19 18 Nausea Only [facility] (17 sources) Lisinopril; Translations: [lisinopril] Drug Allergy 04-18-20 19 Cough [facility] (20 sources) pioglitazone; Translations: [pioglitazone] Drug Allergy 09-28-19 19 Itching [facility] (3 sources) Sulfonamides (Antibiotic); Translations: [Sulfa (Sulfonamide Antibiotics)] Allergy to substance 09-28-19 19 Rash [facility] (20 sources) traMADol; Translations: [tramadol] Drug Allergy 09-28-19 19 Itching, rash [facility] (12 sources) Sulfonamides (Antibiotic) Propensity to adverse reactions to drug 10-11-19 Hives [facility] (8 sources) Nisoldipine Drug Allergy rash [facility] Other (8 sources) Sulfamethoxazole / Trimethoprim Drug Allergy Unknown [facility] Other (8 sources) Sulfonamides (Antibiotic) Propensity to adverse reactions Unknown [facility] Other (6 sources) sulfaSALAzine Drug Allergy Unknown [facility] Other (1 source) meloxicam Drug Allergy [facility] [place] [facility] (2 sources) pioglitazone Drug Allergy [facility] [place] [facility] (2 sources) Sulfonamides (Antibiotic) Drug allergy (disorder) [facility] [place] [facility] (2 sources) traMADol Drug Allergy [facility] Medications Current Medications Medication Drug Class(es) Dates [...] 2018 10:29am take 1 tablet by jessica every four hours Tylenol 325 MG 1 [...] 2019 10:51am take 1 tablet by jessica th every twenty-four hours Vitamin D 50 MCG [...] Active Glimepiride 4 MG (Prior Auth: Rx Ref#:[id number]) Oral for 30 Active hydrOXYzine pamoate 25 [...] Start: 09-22-2018 take 1 capsule by mo [facility] every eight hours Vistaril 25 MG 1 [...] HCl ER 500 MG (Prior Auth: Rx Ref#:[id number]) Oral for 90 Active methylPREDNISolone 4 mg oral tablet (7 sources) Corticosteroid Start: 03-26-2022 methylPREDNIsolone 4 MG Tab Therapy Pack tablet Take 1 tablet by mouth As directed. follow package directions 21 tablet 0 03/26/2022 Active naloxone hydrochloride 40 mg/ml nasal spray (4 sources) Opioid Antagonist Start: 03-11-2022 End: 03-11-2022 naloxone 4 MG/0.1ML 1 spray by Nasal route once for 1 dose. [place] into the nose as directed. Call 911. If no response in 2 minutes use a new nasal spray in other nostril. Repeat until help arrives. 1 Each 0 03/11/2022 Active omega-3 acid ethyl esters (residential) 1000 mg oral capsule (2 sources) Start: 09-13-2018 take 3 g by mouth twice daily Letts-3 Acid Ethyl Esters Active 3 GM Oral [...] 03-11-2022 Chronic Other aftercare (1 source) Other [facility] (current) drug therapy; Translations: [OTH SCOUT CURRENT DRUG THERAPY] Onset: 11-03-2022 Episodic Other aftercare (1 source) long-term (current) use of oral hypoglycemic drugs; Translations: [LONG-TERM USE ORAL HYPOGLYCEMIC DX] Onset: 11-03-2022 Episodic [...] DAYANA DUTTA Date: 2022-11-01 20:39 Normal [facility] [place] [facility] XR KNEE RT 4V or >on 023 XR KNEE RT 4V or > IMAGES REVIEWED: XR KNEE RT 4V or > COMPARISON: 06/25/2022. CLINICAL INDICATION: Pain FINDINGS/IMPRESSION: No evidence of acute osseous abnormality of the right knee. Constrained longstem right total knee arthroplasty without evidence of complication. No joint effusion. Electronically authenticated by: DAYANA DUTTA Date: 2022-11-01 20:37 Normal [facility] XR LSPINE 2_3 VIEWSon 2022 XR LSPINE [...] DAYANA DUTTA Date: 2022-11-01 20:41 Normal [facility] MAMM SCREEN 3D CARISSA CADon 04-24-2022 MG MAMM SCREEN 3D CARISSA CAD Patient: KATT RAHMAN Exam Date: 04/24/2022 : 1960 Gender:F Ordering : DR DAWN MUNOZ . Admission #: [id number] Family : Order #: [id number] CLICK HERE TO VIEW EXAM RADIOLOGY REPORT [...] kidney cancer at age 65. LOCATION: [facility] [place] [facility] BREAST COMPOSITION: Heterogeneously dense,which may obscure [...] Mccray MD on 04/24/2022 at 12:05 Normal [facility] [place] [facility] PROF CHEM 8 (BAS METB)on Anion gap [Moles/Vol] 12.3 mmol/L Normal [facility] [place] [facility] Comment on above: Performed By: #### B MP #### [facility] [place] [facility] [address] [address] [address] Katlyn Barahona Calcium [Mass/Vol] 8.8 mg/dL Normal 8.5-10.1 [facility] Comment on above: Performed By: #### B MP #### [facility] [place] [facility] [address] [address] [address] Katlyn Barahona Chloride [Moles/Vol] 104 mmol/L Normal 98-107 [facility] Comment on above: Performed By: #### B MP #### [facility] [place] [facility] [address] [address] [address] Katlyn Barahona CO2 [Moles/Vol] 27.9 mmol/L Normal 21.0-32.[address] [facility] Comment on above: Performed By: #### B MP #### [facility] [place] [facility] [address] [address] [address] Katlyn Barahona Creatinine [Mass/Vol] 1.07 mg/dL Critically high 0.55-1.02 [facility] Comment on above: Performed By: #### B MP #### [facility] [place] [facility] [address] [address] [address] Katlyn Barahona EGFR-AF ENGLISH >60 Normal >=[address] [facility] Comment on above: Performed By: #### B MP #### [facility] [place] [facility] [address] [address] [address] Katlyn Barahona EGFR-NON AF ENGLISH 52 mL/min/1.73m2 Critically low >=60 [facility] Comment on above: Performed By: #### B MP #### [facility] [place] [facility] [address] [address] [address] Katlyn Barahona Glucose [Mass/Vol] 173 mg/dL Critically high 74-106 [facility] Comment on above: Performed By: #### B MP #### [facility] [place] [facility] [address] [address] [address] Katlyn Barahona Potassium [Moles/Vol] 4.2 mmol/L Normal 3.5-5.1 [facility] Comment on above: Performed By: #### B MP #### [facility] [place] [facility] [address] [place] [address] Dr. Katlyn Barahona Sodium [Moles/Vol] 140 mmol/L Normal 136-145 [facility] Comment on above: Performed By: #### B MP #### [facility] [place] [facility] [address] [address] [address] Katlyn Barahona Urea nitrogen [Mass/Vol] 20.0 mg/dL Critically high 7.0-18.0 [facility] Comment on above: Performed By: #### B MP #### [facility] [place] [facility] [address] [address] [address] Katlyn Barahona Urea nitrogen/Creatinine [Mass ratio] 18.7 mg/mg Normal [facility] Comment on above: Performed By: #### B MP #### [facility] [place] [facility] [address] [address] [address] Katlyn Barahona PAP ACOG PANEL 2: 30 to 65on 02-12-2022 . . Normal [facility] Comment on above: Result Comment: Perf ormed at: WB Performed By: #### T 7, CMP, LIPID, BNP, TSH #### [facility] [place] [facility] [address] [address] [address] Katlyn Barahona Age Gdln ACOG Testing -63 Normal [facility] Comment on above: Performed By: #### T 7, CMP, LIPID, BNP, TSH #### [facility] [place] [facility] [address] [address] [address] Katlyn Barahona DIAGNOSIS: Comment Normal [facility] Comment on above: Result Comment: UNSA TISFACTORY FOR EVALUATION. SPECIMEN REPROCESSED FOR INTERPRETATION USING GLACIAL ACETIC ACID (GAA). Performed at: WB Performed By: #### T 7, CMP, LIPID, BNP, TSH #### [facility] [place] [facility] [address] [address] [address] Katlyn Barahona HPV Aptima Negative Normal Negative [facility] Comment on above: Result Comment: This nucleic acid amplification test detects fourteen high-risk HPV types (16,18,31,33,35,39,45,51,52,56,58,59,66,68) without differentiation. Performed at: =G Performed By: #### T 7, CMP, LIPID, BNP, TSH #### [facility] [place] [facility] [address] [address] [address] Katlyn Barahona Methodology: Comment Normal [facility] Comment on above: Result Comment: This liquid based ThinPrep(R) pap test was screened with the use of an image guided system. Performed at: WB Performed By: #### T 7, CMP, LIPID, BNP, TSH #### [facility] [place] [facility] [address] [address] [address] Katlyn Barahona Note: Comment Normal [facility] Comment on above: Result Comment: The Pap [...] T 7, CMP, LIPID, BNP, TSH #### [facility] [place] [facility] [address] [address] [address] Katlyn Barahona Performed by: Comment Normal [facility] Comment on above: Result Comment: Yuki Jang, Physician Neonatology (ASCP) Performed at: WB Performed By: #### T 7, CMP, LIPID, BNP, TSH #### [facility] [place] [facility] [address] [address] [address] Katlyn Barahona QC reviewed by: Comment Normal [facility] Comment on above: Result Comment: Almaz Inman, Supervisory Physician Neonatology (ASCP) Performed at: WB Performed By: #### T 7, CMP, LIPID, BNP, TSH #### [facility] [place] [facility] [address] [address] [address] Katlyn Barahona Recommendation: Comment Normal [facility] Comment on above: Result Comment: Sugg est follow up as clinically appropriate. Performed at: WB Performed By: #### T 7, CMP, LIPID, BNP, TSH #### [facility] [place] [facility] [address] [address] [address] Katlyn Barahona Specimen adequacy: Comment Normal [facility] Comment on above: Result Comment: Spec imen processed and examined but unsatisfactory for evaluation of epithelial abnormality because of insufficient cellularity. Areas of partially obscuring blood are present. Performed at: WB Performed By: #### T 7, CMP, LIPID, BNP, TSH #### [facility] [place] [facility] [address] [place], [place] [address] Dr. Katlyn Barahona XR DEXA BONE DENSITYon [...] by: RENETTA MCCRAY Date: 2022-02-11 18:42 Normal [facility] LARGE JOINT/BURSA INJECTION AND/OR ASPIRATION: R hip [...] was prepped in the usual sterile fashion. [facility]RTUAL [facility] Rad[facility] Study observation (narrative) [facility] NM bone 3 phaseon 12-12-[address] [facility] [place] [address] [place] [address] Nuclear Medicine Report Signed Patient: Katt Rahman MR#: [id number] : 1960 Acct:[id number] Age/Sex: 61 / F ADM Date: 12/12/21 [facility]: [facility] Room: Type: [facility] Attending Dr: Rafael Hernandez DO Ordering Provider: Rafael Hernandez DO Date of Service: 12/12/21 [facility] bone 3 phase: T84.50XD Copies to: MD [...] is physiologic activity at the urinary tract. VA/VA bone 3 phase IMPRESSION: MILD HYPEREMIA AND INCREASED UPTAKE AT THE LATERAL ASPECT OF LEFT PATELLA, UNCLEAR ETIOLOGY. ADDITIONAL SUSPECTED DEGENERATIVE JOINT UPTAKE DESCRIBED. Impression dictated by: Jumana Ryder M.D.12/12/2021 1:10 PM Dictation Location: [place] [address] Transcribed By: ALBERTO 12/12/21 1310 Dictated By: Jumana Ryder MD 12/12/21 1302 Signed By: 12/12/21 1310 Normal [facility] C REACTIVE PROTEINon 022 CRP [Mass/Vol] 14.7 mg/L High 0 - 10.0 MG/L [facility] Interpretation and review of laboratory results Abnormal [facility] CBC, EDIF, PLATELETon 2021 ABSOLUTE BASOPHIL COUNT 0.0 10*3/uL 0.0 - 0.2 10*3/uL [facility] Basophils/100 WBC (Bld) 0.5 % 0.0 - 2.0 % [facility] Differential cell count method Nom (Bld) AUTO DIFF % [facility] Eosinophils (Bld) [#/Vol] 0.10 10*3/uL 0.0 - 0.7 10*3/uL [facility] Eosinophils/100 WBC (Bld) 1.9 % 0.0 - 11.0 % [facility] Erythrocyte distribution width (RBC) [Ratio] 13.2 % 11.5 - 14.5 % [facility] Hematocrit (Bld) [Volume fraction] 35.2 % Low 36.0 - 48.0 % [facility] Hemoglobin (Bld) [Mass/Vol] 11.9 g/dL Low [facility] Interpretation and review of laboratory results Abnormal [facility] Lymphocytes (Bld) [#/Vol] 1.10 10*3/uL Low 1.2 - 3.4 10*3/uL [facility] Lymphocytes/100 WBC (Bld) 14.8 % Low 20.0 - 55.0 % [facility] MCH (RBC) [Entitic mass] 30.3 pg 26.0 - 35.0 PG [facility] MCHC (RBC) [Mass/Vol] 33.9 g/dL [facility] MCV (RBC) [Entitic vol] 89.4 fL [facility] Monocytes (Bld) [#/Vol] 0.6 10*3/uL 0.0 - 0.7 10*3/uL [facility] Monocytes/100 WBC (Bld) 7.6 % 0.0 - 10.0 % [facility] Neutrophils (Bld) [#/Vol] 5.7 10*3/uL 1.4 - 6.5 10*3/uL [facility] Neutrophils/100 WBC (Bld) 75.2 % High 37.0 - 75.0 % [facility] Platelet mean volume (Bld) [Entitic vol] 7.5 fL [facility] Platelets (Bld) [#/Vol] 257 10*3/uL 130.0 - 400.0 10*3/uL [facility] RBC (Bld) [#/Vol] 3.94 10*6/uL Low 4.0 - 5.4 10*6/uL [facility] WBC (Bld) [#/Vol] 7.6 10*3/uL 3.6 - 11.0 10*3/uL [facility] SEDIMENTATION RATE, AUTOMATE Don 12-06-2021 ESR (Bld) [Velocity] 12 mm/h [facility] BNPon 11-13-2021 Natriuretic peptide B (Bld) [Mass/Vol] 17.0 pg/mL Normal <=900.0 [facility] [place] [facility] Comment on above: Performed By: #### T 7, CMP, LIPID, BNP, TSH #### [facility] [place] [facility] [address] [place] [address] Dr. Katlyn Barahona CBC AUTO DIFFon 11-13-2021 BASO # 0.0 103/ul Normal 0.0-0.1 [facility] [place] [facility] Comment on above: Performed By: #### T 7, CMP, LIPID, BNP, TSH #### [facility] [place] [facility] [address] [place] [address] Dr. Katlyn Barahona Basophils/100 WBC (Bld) 0.8 % Normal 0.2-2.0 [facility] [place] [facility] Comment on above: Performed By: #### T 7, CMP, LIPID, BNP, TSH #### [facility] [place] [facility] [address] [place] [address] Dr. Katlyn Barahona EO # 0.1 103/ul Normal 0.0-0.7 [facility] [place] [facility] Comment on above: Performed By: #### T 7, CMP, LIPID, BNP, TSH #### [facility] [place] [facility] [address] [place] [address] Dr. Katlyn Barahona Eosinophils/100 WBC (Bld) 2.6 % Normal 0.9-7.0 [facility] Comment on above: Performed By: #### T 7, CMP, LIPID, BNP, TSH #### [facility] [place] [facility] [address] [place] [address] Dr. Katlyn Barahona Erythrocyte distribution width (RBC) [Ratio] 12.6 % Normal 11.0-15.0 [facility] Comment on above: Performed By: #### T 7, CMP, LIPID, BNP, TSH #### [facility] [place] [facility] [address] [place] [address] Dr. Katlyn Barahona Hematocrit (Bld) [Volume fraction] 38.7 % Normal 36.0-48.0 [facility] Comment on above: Performed By: #### T 7, CMP, LIPID, BNP, TSH #### [facility] [place] [facility] [address] [place] [address] Dr. Katlyn Barahona Hemoglobin (Bld) [Mass/Vol] 12.3 g/dL Normal 12.0-16.0 [facility] Comment on above: Performed By: #### T 7, CMP, LIPID, BNP, TSH #### [facility] [place] [facility] [address] [place] [address] Dr. Katlyn Barahona IG # 0.02 10e3/ul Normal 0.00-0.03 [facility] [place] [facility] Comment on above: Performed By: #### T 7, CMP, LIPID, BNP, TSH #### [facility] [place] [facility] [address] [place] [address] Dr. Katlyn Barahona IG % 0.4 % Normal 0.0-0.5 [facility] [place] [facility] Comment on above: Performed By: #### T 7, CMP, LIPID, BNP, TSH #### [facility] [place] [facility] [address] [place] [address] Dr. Katlyn Barahona LYMPH # 1.4 103/ul Normal 1.2-3.8 [facility] [place] [facility] Comment on above: Performed By: #### T 7, CMP, LIPID, BNP, TSH #### [facility] [place] [facility] [address] [place] [address] Dr. Katlyn Barahona Lymphocytes/100 WBC (Bld) 28.0 % Normal 20.5-60.0 [facility] Comment on above: Performed By: #### T 7, CMP, LIPID, BNP, TSH #### [facility] [place] [facility] [address] [address] [address] Katlyn Barahona MANUAL DIFF REQ NO Normal [facility] Comment on above: Performed By: #### T 7, CMP, LIPID, BNP, TSH #### [facility] [place] [facility] [address] [place] [address] Dr. Katlyn Barahona MCH (RBC) [Entitic mass] 29.8 pg Normal 26.7-34.0 [facility] [place] [facility] Comment on above: Performed By: #### T 7, CMP, LIPID, BNP, TSH #### [facility] [place] [facility] [address] [place] [address] Dr. Katlyn Barahona MCHC (RBC) [Mass/Vol] 31.8 g/dL Normal 29.9-35.2 [facility] [place] [facility] Comment on above: Performed By: #### T 7, CMP, LIPID, BNP, TSH #### [facility] [place] [facility] [address] [place] [address] Dr. Katlyn Barahona MCV (RBC) [Entitic vol] 93.7 fL Normal 81.0-99.0 [facility] [place] [facility] Comment on above: Performed By: #### T 7, CMP, LIPID, BNP, TSH #### [facility] [place] [facility] [address] [place] [address] Dr. Katlyn Barahona MONO # 0.4 103/ul Normal 0.3-0.8 [facility] [place] [facility] Comment on above: Performed By: #### T 7, CMP, LIPID, BNP, TSH #### [facility] [place] [facility] [address] [place] [address] Dr. Katlyn Barahona Monocytes/100 WBC (Bld) 8.9 % Normal 1.7-12.0 [facility] [place] [facility] Comment on above: Performed By: #### T 7, CMP, LIPID, BNP, TSH #### [facility] [place] [facility] [address] [place] [address] Dr. Katlyn Barahona NEUT # 3.0 103/ul Normal 1.4-6.5 [facility] [place] [facility] Comment on above: Performed By: #### T 7, CMP, LIPID, BNP, TSH #### [facility] [place] [facility] [address] [address] [address] Katlyn Barahona Neutrophils/100 WBC (Bld) 59.3 % Normal 43.0-75.0 [facility] Comment on above: Performed By: #### T 7, CMP, LIPID, BNP, TSH #### [facility] [place] [facility] [address] [place] [address] Dr. Katlyn Barahona Platelet mean volume (Bld) [Entitic vol] 8.9 fL Critically low 9.5-13.5 [facility] Comment on above: Performed By: #### T 7, CMP, LIPID, BNP, TSH #### [facility] [place] [facility] [address] [place] [address] Dr. Katlyn Barahona PLT 259 103/ul Normal 150-450 [facility] Comment on above: Performed By: #### T 7, CMP, LIPID, BNP, TSH #### [facility] [place] [facility] [address] [place] [address] Dr. Katlyn Barahona RBC 4.13 106/ul Critically low 4.20-5.40 [facility] Comment on above: Performed By: #### T 7, CMP, LIPID, BNP, TSH #### [facility] [place] [facility] [address] [place] [address] Dr. Katlyn Barahona WBC 5.0 103/ul Normal 4.0-11.0 [facility] Comment on above: Performed By: #### T 7, CMP, LIPID, BNP, TSH #### [facility] [place] [facility] [address] [place] [address] Dr. Katlyn Barahona FREE THYROXINE INDEX T7on FTI 2.27 Normal 1.30-4.50 [facility] [place] [facility] Comment on above: Performed By: #### T 7, CMP, LIPID, BNP, TSH #### [facility] [place] [facility] [address] [place] [address] Dr. Katlyn Barahona T3U 36.0 % Normal 30.0-39.0 [facility] Comment on above: Performed By: #### T 7, CMP, LIPID, BNP, TSH #### [facility] [place] [facility] [address] [place] [address] Dr. Katlyn Barahona T4 [Mass/Vol] 6.30 ug/dL Normal 4.80-13.90 [facility] Comment on above: Performed By: #### T 7, CMP, LIPID, BNP, TSH #### [facility] [place] [facility] [address] [address] [address] Katlyn Barahona GLYCOHEMOGLOBIN A1Con 2021 ADA RECOMMENDATION SEE BELOW Normal [facility] Comment on above: Result Comment: ADA RECOMMENDED LIMIT 4.0 - 6.0 ADA THERAPEUTIC TARGET < 7.0 ACTION SUGGESTED > 7.0 Performed By: #### T 7, CMP, LIPID, BNP, TSH #### [facility] [place] [facility] [address] [address] [address] Katlyn Barahona Glucose [Mass/Vol] 154 mg/dL Normal [facility] Comment on above: Performed By: #### T 7, CMP, LIPID, BNP, TSH #### [facility] [place] [facility] [address] [address] [address] Katlyn Barahona HbA1c (Bld) [Mass fraction] 7.0 % Critically high 4.5-6.2 [facility] Comment on above: Performed By: #### T 7, CMP, LIPID, BNP, TSH #### [facility] [place] [facility] [address] [address] [address] Katlyn Barahona IRONon 11-13-2021 Iron [Mass/Vol] 72.0 ug/dL Normal 50.0-170.0 [facility] Comment on above: Performed By: #### T 7, CMP, LIPID, BNP, TSH #### [facility] [place] [facility] [address] [place] [address] Dr. Katlyn Barahona LIPID PROFILEon 11-13-2021 CHOL-HDL RATIO NORM SEE BELOW Normal [facility] Comment on above: Result Comment: 3.3 - 4.4 LOW RISK 4.4 - 7.1 AVERAGE RISK 7.1 - 11.0 MODERATE RISK >11.0 HIGH RISK Performed By: #### T 7, CMP, LIPID, BNP, TSH #### [facility] [place] [facility] [address] [address] [address] Katlyn Barahona Cholesterol [Mass/Vol] 290 mg/dL Critically high <=200 [facility] Comment on above: Performed By: #### T 7, CMP, LIPID, BNP, TSH #### [facility] [place] [facility] [address] [address] [address] Katlyn Barahona Cholesterol in HDL [Mass/Vol] 65 mg/dL Critically high 40-60 [facility] Comment on above: Performed By: #### T 7, CMP, LIPID, BNP, TSH #### [facility] [place] [facility] [address] [address] [address] Katlyn Barahona Cholesterol in LDL [Mass/Vol] 183.4 mg/dL Normal [facility] Comment on above: Performed By: #### T 7, CMP, LIPID, BNP, TSH #### [facility] [address] [address] [address] Katlyn Barahona Cholesterol.total/Ch olesterol in HDL [Mass ratio] 4.5 {ratio} Normal [facility] Comment on above: Performed By: #### T 7, CMP, LIPID, BNP, TSH #### [facility] [address] [address] [address] Katlyn Barahona HDL NORMAL > or = 60 mg/dl - LOW CARDIOVASCULAR RISK <40 mg/dl - HIGH CARDIOVASCULAR RISK Normal [facility] Comment on above: Performed By: #### T 7, CMP, LIPID, BNP, TSH #### [facility] [address] [place] [address] Dr. Katlyn Barahona LDL CALC NORMAL SEE BELOW Normal [facility] Comment on above: Result Comment: <100 mg/dl OPTIMAL 100 - 129 mg/dl NEAR OR ABOVE OPTIMAL 130 - 159 mg/dl BORDERLINE HIGH 160 - 189 mg/dl HIGH >190 mg/dl VERY HIGH Performed By: #### T 7, CMP, LIPID, BNP, TSH #### [facility] [address] [address] [address] Katlyn Barahona Triglyceride [Mass/Vol] 208 mg/dL Critically high <=150 [facility] Comment on above: Performed By: #### T 7, CMP, LIPID, BNP, TSH #### [facility] [address] [address] [address] Katlyn Barahona VLDL CALC 41.6 mg/dL Normal [facility] Comment on above: Performed By: #### T 7, CMP, LIPID, BNP, TSH #### [facility] [address] [address] [address] Katlyn Barahona PROF 14(COMP METB)on 022 Albumin [Mass/Vol] 3.6 g/dL Normal 3.4-5.0 [facility] Comment on above: Performed By: #### T 7, CMP, LIPID, BNP, TSH #### [facility] [address] [address] [address] Katlyn Barahona Albumin/Globulin [Mass ratio] 1.1 {ratio} Normal [facility] Comment on above: Performed By: #### T 7, CMP, LIPID, BNP, TSH #### [facility] [address] [place] [address] Dr. Katlyn Barahona ALP [Catalytic activity/Vol] 91 U/L Normal 46-116 [facility] Comment on above: Performed By: #### T 7, CMP, LIPID, BNP, TSH #### [facility] [address] [address] [address] Katlyn Barahona ALT [Catalytic activity/Vol] 17 U/L Normal 14-59 [facility] Comment on above: Performed By: #### T 7, CMP, LIPID, BNP, TSH #### [facility] [address] [address] [address] Katlyn Barahona Anion gap [Moles/Vol] 12.8 mmol/L Normal [facility] Comment on above: Performed By: #### T 7, CMP, LIPID, BNP, TSH #### [facility] [address] [address] [address] Katlyn Barahona AST [Catalytic activity/Vol] 10 U/L Critically low 15-37 [facility] Comment on above: Performed By: #### T 7, CMP, LIPID, BNP, TSH #### [facility] [address] [address] [address] Katlyn Barahona Bilirubin [Mass/Vol] 0.4 mg/dL Normal 0.2-1.0 [facility] Comment on above: Performed By: #### T 7, CMP, LIPID, BNP, TSH #### [facility] [address] [address] [address] Katlyn Barahona Calcium [Mass/Vol] 8.7 mg/dL Normal 8.5-10.1 [facility] Comment on above: Performed By: #### T 7, CMP, LIPID, BNP, TSH #### [facility] [address] [place] [address] Dr. Katlyn Barahona Chloride [Moles/Vol] 103 mmol/L Normal 98-107 [facility] Comment on above: Performed By: #### T 7, CMP, LIPID, BNP, TSH #### [facility] [address] [place] [address] Dr. Katlyn Barahona CO2 [Moles/Vol] 26.4 mmol/L Normal 21.0-32.[address] [facility] Comment on above: Performed By: #### T 7, CMP, LIPID, BNP, TSH #### [facility] [address] [place] [address] Dr. Katlyn Barahona Creatinine [Mass/Vol] 1.19 mg/dL Critically high 0.55-1.02 [facility] Comment on above: Performed By: #### T 7, CMP, LIPID, BNP, TSH #### [facility] [address] [place] [address] Dr. Katlyn Barahona EGFR-AF ENGLISH 56 mL/min/1.73m2 Critically low >=60 [facility] Comment on above: Performed By: #### T 7, CMP, LIPID, BNP, TSH #### [facility] [address] [place] [address] Dr. Katlyn Barahona EGFR-NON AF ENGLISH 46 mL/min/1.73m2 Critically low >=60 [facility] Comment on above: Performed By: #### T 7, CMP, LIPID, BNP, TSH #### [facility] [address] [place] [address] Dr. Katlyn Barahona Globulin (S) [Mass/Vol] 3.2 g/dL Normal [facility] Comment on above: Performed By: #### T 7, CMP, LIPID, BNP, TSH #### [facility] [address] [address] [address] Katlyn Barahona Glucose [Mass/Vol] 133 mg/dL Critically high 74-106 [facility] Comment on above: Performed By: #### T 7, CMP, LIPID, BNP, TSH #### [facility] [address] [place] [address] Dr. Katlyn Barahona Potassium [Moles/Vol] 4.2 mmol/L Normal 3.5-5.1 [facility] Comment on above: Performed By: #### T 7, CMP, LIPID, BNP, TSH #### [facility] [address] [place] [address] Dr. Katlyn Barahona Protein [Mass/Vol] 6.8 g/dL Normal 6.4-8.2 [facility] Comment on above: Performed By: #### T 7, CMP, LIPID, BNP, TSH #### [facility] [address] [place] [address] Dr. Katlyn Barahona Sodium [Moles/Vol] 138 mmol/L Normal 136-145 [facility] Comment on above: Performed By: #### T 7, CMP, LIPID, BNP, TSH #### [facility] [address] [place] [address] Dr. Katlyn Barahona Urea nitrogen [Mass/Vol] 17.0 mg/dL Normal 7.0-18.0 [facility] Comment on above: Performed By: #### T 7, CMP, LIPID, BNP, TSH #### [facility] [address] [place] [address] Dr. Katlyn Barahona Urea nitrogen/Creatinine [Mass ratio] 14.3 mg/mg Normal [facility] Comment on above: Performed By: #### T 7, CMP, LIPID, BNP, TSH #### [facility] [address] [place] [address] Dr. Katlyn Barahona TSHon 11-13-2021 TSH 1.384 uIU/mL Normal 0.358-3.740 [facility] Comment on above: Performed By: #### T 7, CMP, LIPID, BNP, TSH #### [facility] [address] [place] [address] Dr. Katlyn Barahona TSH RANGE SEE BELOW Normal [facility] Comment on above: Result Comment: <0.3 4 UIU/ml HYPERTHYROID 0.34-5.60 UIU/ml EUTHYROID >5.60 UIU/ml HYPOTHYROID Performed By: #### T 7, CMP, LIPID, BNP, TSH #### [facility] [address] [place] [address] Dr. Katlyn Barahona VITAMIN D 25 OHon 11-13-2021 VIT D 25-OH 23.2 ng/mL Normal [facility] Comment on above: Performed By: #### T 7, CMP, LIPID, BNP, TSH #### [facility] [address] [place] [address] Dr. Katlyn Barahona VIT D RANGES SEE BELOW Normal [facility] Comment on above: Result Comment: <20 ng/mL Vit D deficient 20 - <30 ng/mL Vit D insufficient 30 - 100 ng/mL Vit D sufficient >100 ng/mL Potential Toxicity Performed By: #### T 7, CMP, LIPID, BNP, TSH #### [facility] [address] [place] [address] Dr. Katlyn Barahona LARGE JOINT/BURSA INJECTION AND/OR [...] patient was prepped with alcohol and Chloraprep. [facility] Operative Reporton Operative Report [id number] #1.00CD:127 Normal [facility] Lab Reportson 04-15-2021 Lab Reports [id number] #1.00CD:127 Normal [facility] Formson 04-11-2021 Forms [id number] #1.00CD:127 Normal [facility] General Surgery Office/Clini c Noteon 04-10-2021 General Surgery Office/Clinic Note CD:[id number] 01KR09cCgudcJqa9tpxq 9iQV5iOrTbxdMuPXyyVb 2fc7odKQ18qb5kAlIiUz 8+KzuaAP4KOQfQUWAu lJ6eYAUBVujBEbDyDN4f GnJQUo9BLUBxRMzQFIsg YD6gXUT5cmuanC3nXV3h YRRzoRSeNh8su8c5 DywvJw0cPb8QCj28nDOr uXQqJBRFJ9dmhG7nZC3o gKRaX0ClKZWvRz6GZCs5 yQrdqO1juqX9Tkn3 bGG1Tp16a9zpraQef0Xi RhP3NNsaeWx2vLmiEMcm tS2hWpCsFYACiU0ieFkj XZ9zjA6erlNajCuy biI+DjhuBVHcPvr6qBHs FS53E5CksKthMxi4mMC2 SUVdyXNqSFDfmCi2DUST LVVBLUNvbXBhdGli oGFgOYBoykZzoxK3PyyY LGPuRgMwUum2F4nlJXA+ Pjkje0U4Lpb4LOh6ZCR7 uOkjVWRfy196LJZx qEsipLvjkZOkv54yLAVq jWNtFlAba542UZLnetR3 AFfueDicHwp1kPXduMEj s8ycmSk4WcAeYGEx IjrWVBBpvQjij3NtUkdM ZKztk7iutfHfwCxqOJI5 m2XkFNapBIArPUU9IxGq IC8+CgkJPGNvbCB2 PAgfG522UpDskXBjn1tb pWq6QnA8KYMaQp4LZAny C87nU8VgxTW+Tiv4tWTb ZHk+CgkJPHRyPgoJ PBy4vBWcq1D1dYK1YtYf syHbl9y2OVmuQOB3SzG5 KBW7dZNgnV6jqZcdmzkw tF2iRyI+CgkJCTxk xLAqZ3rsu3R8MeTdt1Ry mRgvxnLaNURrMzTxj3kp FnsnKJZdkI0aXAV1NsLz YRUeiYTvJMUnGF7d toNnyTFnQPNfBwUbA3Ic j13td5OxTPZCL2xZVjWl DIY9HV9lDiXqQJ9aQwYo InDfYVzbDVY4GSXu HDVnRC39CTTeFUHcGIIj IJN6KZGzIHEzd5V6xDP1 IcCxYAQjfvd1ZUJvoKsc PjxzcGFuIGNsYXNz IHWgTBFpD6Xgk48efASt sTB6Bg16q2SwnhDlgFgm AW0qYq4dkT59BSjxnUI7 UGJthZV0JKAawHXt SXVno5YqqQttwcocuM8p BZVkzK9nKmX+K0fhTDRp C18acCfzcA91WW0uwOFu Htjtm7Ltbb3NFCvX OGYohkPfnPNkur0hQCQm lAFua228LG00OpAnRXea j464DT05lPjiAJ1zZGXQ N4JGVR5MBRKVUmMv GAheHOXudyZkS1H0tPyz BGFVA8W0SbB8XN5SDuVi VDVMW4ZtRgLwZr4NP5HI IVlUVjA2BqYiGMkk PSJfNWEzYmVlZDMtMGM2 Px26HIZ6NJq6NmWmESMx DQChUCGlFlQtZw5ISTyB LYTlbpHwnRNdlq1r LXGapQQyq784BW42iRCi rVDfLWDrzI14AZIcEXPg OMT6E69ssCEuuJK1kNC0 IlBBVENBUkVfTUVB TkPhSEA6KF84hRF6lHE5 WuD7KAU8EOA2NYulANwe PSJfMzMyMmFkZTQtNzgy HN45GGA3TKtuTYBm OGIxYmMyYzIzNzUyIiB4 cSglkjcgNI0rSCswTO6b W9VcB0UyLS72NVCio80f NnMeiThrcaM5kEFe RZE6ymhoCQKrE8DyWU9e aXY+GlrTYWkbWXs9CyrG IGo8D5Owki7VKwrSRXhx oPPuL1krf8X8FkMe d8VizYbbyaPyRILjQlVj g7qcAjjnWWDdyD2mGSY9 RuHuOLXwmNCtMIPwKJ4q dmFibGUiIGRkOnNl I9Jld36ih2QkLNTKF0hL CzEvIGQ6EE3kGoWjEW8d G9QkXVYbNKLaOMqjGEEy JOxuOc65WakgOTQj GpC3O7H5ZDhkRTIpx1J0 sDC2DiRwLRTcnqe6UKYi eDsiPjxzcGFuIGNsYXNz USGgRBGvQ0Bby84d lEOucTA9Vp06n9LenzQe lWozOZ6uSz4ntD33NBag wUS7OVOxgZB5SQCvlEFc LFGue8HaeYvvmfnv gU6mNXYlqV3kUdZ+SFBJ JRV3DRWbAZ8cgCByXhxh d8Uzth0YSggSDMulwXAc S0ggv6P2AePvTG4c Y19uqZXduBCvZNE1U54z eXYqaTP6iTP8QfBSOJNS LzJsDJSKUkRlQID5ptDp FRBsyxVvjDIsLF2m FCv8FMUXRWGlMEC8GS51 QjRDLUFGRDItNkFEQkMy StG9RZpqSwFcAQ4gW7Nn NzZlNjIxLTNmMjAt IPY8AO53R4M7MSNhBaW7 LqR4YpMeZLV+CgkJCTxk jIBgE2xzr8R9AlEoZS4p O30aiEQcyBe1OX0e QQMzTQ2mqgKtxRRzNKKe AzV6omCzt3X6lS2ah6F6 hPT3ZfQjhW7ahXdfmNWc DDR8U98yoZCmqBH1 jIK5FjFCBEBQKtPiMHMC DoUpNOP8KJ45pXZ2tET4 VhQjjLP5Mh55KwEiKYPa BN2dLhVqIRE1CdAc GIO3FF91Fjw4VYT4CUQg NYDtJSinvJ6mFrQzVLGU sL0oaOlpSC0mbP4dcbRq dGlvbiI+RR6geZQ+ HucJPKg7ZKb7OIOfAFLp PSJkZGVtcmNvbnRlbnRp uBNqSVAzsjRio6ImMnyp ExHxTGtxzI3ugY4l mZvhL2C3uKpvCBE2z5Sw cmlnaHQiIGRkOmNvbnRl dsT5aLHaJBNBNQOYBPUN T34HEQAxKNNnNaWk rJv8rKfcBFYsBFllJGRn ZcP7MBWzBKLdSAKgRF25 ZeTvPCZhLZmtVbF1K6L9 ZJHaLKWbSyL8qJps ulzeSG5wALfjEL7iZ5Eg V7YyQK26IJMgq24wQfwg ODj3GofOXMoILSAnbwBq jDRfxb7rBAFpqBKe g633SI90lRTuzONzSEDq hG65PBZjJTYlSGS6UpKt GbxfMZVpzjqocBxhTQ2r tM3xLKPnF8m4RrOu HCnyv780UR75eIknHU2f FZKDY0CSVG8BFSCBWpIz ILgidkAtiOgbOD4aVvVs WF8eEaD0JbLbVlY8 YTF5QZIdYUF7Gr3qBRIf SAUgLqDtDTJ9BSA9LAWi dK5hluF8RXM4QhG4yjTa pVGLh3S3qQMtnEF7 iX9gYb07N7Exec6VGraJ VBwtiWWoR6pfe9O8DzQy OU2vS39icGObcBv5RU5h OLMmRC0rqsYpiCMs LFPwMmM2faGgx9P7hR4n x7J0tOK5RlOxrN6dfYgm nBMxXNJ0K23ulUJutGS5 oBH3QrETLMICBgFl KYZREvOzRQW3MZ97rBK4 rES9LzEztZU0Oq5uAwSp KomgCP2aVwIsCDZ7XrHr TZTtQM6kIKDyVNP5 E4X7HYJyYPdhaS8bAnEw MWIAoK4vlGxjPA1wmQ6t bnRhdGlvbiI+VJ3mtAS+ HpmUDAm6JSk4QKGq YXNzPSJkZGVtcmNvbnRl xkCnbNMaAOUxdkQnw7Lo ZvsrEdNxYJhsxA5zuT6i gWwvX4T7hGzuTEX6 t2XssprlwYSmKBXcMkPg vjGbeqC6hOCfMGLYGMQA BOFFG29JAAEyHVCoDiEi wRl7vTdkJKLzCXtc SNJhQ1TcCHVjYMvmALrs Vv53BQU1BZL4LqHkOXk3 ZHBfHVZ1PFx2BoM5xQnx tvyiYO0lEWwyPQ6t C4AiY8NoZT23APWsu92t DlxqUWt8MimYKEfTSFCa mhIelYFugl5hBDWffWOt y637DM92oSQpdAOf GCZuyS35AMBgLPQoFRQ1 YnRuZmxvYXRpbmdzdHls XT7jpJ1bWZXkP6r7BqEq ZFidl444XP69mVyj FC6pAPKQZ1GIJL3ZRMCU UwNyBGnhpqHseBhaTK9f VsSkGN4fSrSiRgMuAFPk ZWObCPQeXMntFM8k FDQxEVW8S7DvBPN1Gzue YLSjjM5nkbM8ABG4QlW1 jeGosIGZm6Q2wOEkhAS2 sC2wBg65Z5Cmmr1M OmdEOCakjVEaC3ygt1S5 QoFeQD7oP10elBTwhCf5 KT5cMYVnOQ1lykOfmGYe JBLwTtM9yrUtt4U7 gX3ig8W4pLW4DnZrqG4a vZyxgSNqRQA4N76ezOTh hQB1cWR0JgWFRYDHSyFg WFXOEiWpDXW5FR79 hID0aOM1CqPgqEQ0Bj8p NBC5GJV4AA48ZjF5CBU4 ZWVsViPiUG7cFaRwXpNm ISOoGbXtSZqrmX9l GyBuKWFYsS3jrJepZA3r eZ9vweWthIwgrcR+PC9k aXY+AcdEQVz9PIz7AAFg YXNzPSJkZGVtcmNv bnRlbnRpdGVtIGRkcmVt i5AsUrsaMaGlJJmodZ6h fV8czKfjF5T4cYiqVGC9 v3FkbssolVUrFVTx NrJfonLxhqG4rXLzPKGF JBQFUQUDW44OKKXeMZQx EpHjwWk6tUeyGDIcDUdp VQLvQcH4OQs2ViEx YAWfGz43JKZqKOz0UATv Vqz9QZGcAAVgSiU9CmA1 fLiklhavYC8aLMumCX2i R6EaJ0GcTU97YXNd w09jNdedTHu5AmxORMmF GMXhdhGoqWDqqk3bYLAc lVAtc799NG77rUDkvYGv XYWyaV15EYPiESRv OTR4YlEqYynqZEXermib oKvpWX0tpR1rAISdG4r5 ZcXpKXykm784EZ25wVdp EJ7tPOBVO3DEOQ2G RUFTIiBkZDplbnRpdHlp JH7aEeRuQH4pApyxSBci WWTaYEX7BLFjQVGqEJ53 ZDIzLWQyNjdkODg0 AED3LkPioR8rmnB1FMM5 EvX2wfGeqGLTx1R1gWGe nRQ2iX2sYc54E9Oqrh9E DftVHKdkfEEaI0eu x2J8SvWcXL5iC08haRZe lVi1AZ1aUOQzCP5hqoGj zHYfXCUkUeO8zaQoi5Q3 hN6xx0H1oCF8EcGv c (more content not included)... Normal [facility] Comment on above: Result Comment: Elec tronically Signed By: MIRIAM BRONSON, Tan Gross\Date and Time Signed: 04/10/21 15:28 EDT XR knee RT 2Von 04-09-2021 XR knee RT 2V [place] [employer] Other XR knee RT 2V [facility] [employer] Other XR knee RT 2V [address] [place] [address] [employer] Other XR knee [place] 2[place] [address] [facility] [employer] Other XR knee RT 2V XRay Report [facility] [employer] Other XR knee RT 2V Signed [employer] Other XR knee RT 2V Patient: Katt Rahman MR#: [id number] [place] [employer] Other XR knee RT 2V : 1960 Acct:[id number] [place] [employer] Other XR knee RT 2V Age/Sex: 60 / F ADM Date: 04/09/21 [employer] Other XR knee RT 2V Loc: [facility] Room: Type: [facility] [employer] Other XR knee RT 2V Attending Dr: Milagros Hall BROKERAGE COORDINATOR-C [employer] Other XR knee RT 2V Ordering Provider: Yehuda Camara MD [employer] Other XR knee RT 2V Date of Service: 04/09/21 [employer] Other XR knee RT 2V XR/XR knee RT 2V: History of total right knee replacement [employer] Other XR knee RT 2V Copies to: Yehuda Camara MD [employer] Other XR knee RT 2V BUNNY Tinsley-C [employer] Other XR knee RT 2V 2 views RIGHT knee plain film [employer] Other XR knee RT 2V COMPARISON:05/10/20 No rt [employer] Other XR knee RT 2V HISTORY:Status post RIGHT total knee arthroplasty [employer] Other XR knee RT 2V No hardware failure or loosening identified. No fracture or dislocation. Small suprapatellar [employer] Other XR knee RT 2V effusion. No soft tissue abnormality. [employer] Other XR knee RT 2V XR/XR knee RT 2V [employer] Other XR knee RT 2V IMPRESSION:Uncomplic ated RIGHT knee arthroplasty. [employer] Other XR knee RT 2V Impression dictated by: Edilberto Castillo M.D.04/09/2021 11:51 AM [employer] Other XR knee RT 2V Dictation Location: [place] [address] [employer] Other XR knee RT 2V Transcribed By: PWS 04/09/21 [facility] [employer] Other XR knee RT 2V Dictated By: Edilberto Castillo DO 04/09/21 [facility] [employer] Other XR knee RT 2V Signed By: [employer] Other XR knee RT 2V 04/09/21 [facility] [employer] Other Operative Reporton Operative Report [id number] #1.00CD:127 Normal [facility] Consent for Procedure/Surger yon 01-25-2021 Consent for Procedure/Surgery [id number] #1.00CD:127 Normal [facility] [place] [facility] January 11, 2021 Rafa Verdin, [facility] [place] [address] Re: KATT RAHMAN Date of : 1960 Thank you for your referral of Katt Rahman who was seen on consultation on January 10, 2021, for possible gastric ulcer. An EGD is planned for further evaluation. I have enclosed my consultation note for your review. I will be happy to follow Katt. Sincerely, Tan Hutchison MD General Surgery [facility] Ambulatory Clinical Summaryo n 01-10-2021 Ambulatory Clinical Summary {[id number]}CD:[id number] [facility] RAD - CT Reporton 01-09-[address] - [address] Report [id number] #1.00CD:127 [facility] RAD - Ultrasound Reporton RAD - Ultrasound Report [id number] #1.00CD:127 [facility] Physician Referralon 021 Physician Referral [id number] #1.00CD:127 [facility] Physician Referral [id number] #1.00CD:127 [facility] Consent for COVID Vaccineon 10-28-2020 SARS-CoV-2 (COVID-19) RNA VIVIANA+probe Ql (Unsp spec) [id number] 8#1.00CD:127 [facility] Coding Summary.on 09-26-2020 Coding Summary. CODING DATE: 09/26/2020 FINAL [facility] STATUS: PAYOR: Medical [employer]led[employer] APC DESCRIPTION 1492 [employer] - Level [...] Renetta Maurice Date Saved: 09/26/2020 02:57 pm [facility] Consent for COVID Vaccineon 09-26-2020 SARS-CoV-2 (COVID-19) RNA VIVIANA+probe Ql (Unsp spec) [id number] 8#1.00CD:127 [facility] Consent for Treatmenton 09-04 Consent for Treatment [id number] 8#1.00CD:127 [facility] Vital Signs Date Time Vital Sign Value Performing Clinician Facility 03-04-2023 11:26-0400 Body height 165.1 cm Cynthia Durant SUSHI CHEF-DEPOT MANAGER Work Phone: [facility] 03-04-2023 11:26-0400 Body mass index (BMI) [Ratio] 32.95 kg/m2 Cynthia Durant APRN-DEPOT MANAGER Work Phone: [facility] 03-04-2023 11:26-0400 Body weight 89.81 kg Cynthia Durant APRN-DEPOT MANAGER Work Phone: [facility] 06-25-2022 11:34-0500 Body height 165.1 cm Kee Serrato MD Work Phone: [facility] 06-25-2022 11:34-0500 Body mass index (BMI) [Ratio] 33.08 kg/m2 Kee Serrato MD Work Phone: [facility] 06-25-2022 11:34-0500 Body temperature 97.2 [degF] Kee Serrato MD Work Phone: [employer] [facility] 06-25-2022 11:34-0500 Body weight 90.17 kg Kee Serrato MD Work Phone: [facility] 04-16-2022 13:38-0400 Body height 165.1 cm Cynthia Durant SUSHI CHEF-DEPOT MANAGER Work Phone: [facility] 04-16-2022 13:38-0400 Body mass index (BMI) [Ratio] 33.12 kg/m2 Cynthia Durant SUSHI CHEF-DEPOT MANAGER Work Phone: [facility] 04-16-2022 13:38-0400 Body temperature 97.11 [degF] Cynthia Durant SUSHI CHEF-DEPOT MANAGER Work Phone: [facility] 04-16-2022 13:38-0400 Body weight 90.27 kg Cynthia Durant SUSHI CHEF-DEPOT MANAGER Work Phone: [facility] 03-26-2022 13:25-0400 Body height 165.1 cm Cynthia Durant SUSHI CHEF-DEPOT MANAGER Work Phone: [facility] 03-26-2022 13:25-0400 Body mass index (BMI) [Ratio] 33.12 kg/m2 Cynthia Durant SUSHI CHEF-DEPOT MANAGER Work Phone: [facility] 03-26-2022 13:25-0400 Body temperature 97.5 [degF] Cynthia Durant SUSHI CHEF-DEPOT MANAGER Work Phone: [facility] 03-26-2022 13:25-0400 Body weight 90.27 kg Cynthia Durant APRN-DEPOT MANAGER Work Phone: [facility] 01-16-2022 13:12-0400 Body height 165.1 cm Kee Serrato MD Work Phone: [facility] 01-16-2022 13:12-0400 Body mass index (BMI) [Ratio] 33.25 kg/m2 Kee Serrato MD Work Phone: [facility] 01-16-2022 13:12-0400 Body temperature 97.59 [degF] Kee Serrato MD Work Phone: [facility] 01-16-2022 13:12-0400 Body weight 90.63 kg Kee Serrato MD Work Phone: [facility] 12-06-2021 12:52-0400 Body height 165.1 cm Rafael Riehm DO Work Phone: 1(307)[phone] [place] [address] 12-06-2021 12:52-0400 Body mass index (BMI) [Ratio] 34.35 kg/m2 Rafael Riehm DO Work Phone: 5(773)[phone] [place] [address] 12-06-2021 12:52-0400 Body temperature 97.9 [degF] Rafael Riehm DO Work Phone: 4(561)[phone] [place] [address] 12-06-2021 12:52-0400 Body weight 93.62 kg Rafael Leoehm DO Work Phone: 5(182)[phone] [place] [address] 10-25-2021 11:17-0400 Body height 165.1 cm Rafael Hernandezm DO Work Phone: 0(683)[phone] [place] [address] 10-25-2021 11:17-0400 Body mass index (BMI) [Ratio] 33.38 kg/m2 Rafael Leoehm DO Work Phone: 3(407)[phone] [place] [address] 10-25-2021 11:17-0400 Body temperature 97.7 [degF] Rafael Riehm DO Work Phone: 9(145)[phone] [place] [address] 10-25-2021 11:17-0400 Body weight 90.99 kg Rafael Hernandezm DO Work Phone: 1([phone])[phone] [place] [address] 06-05-2021 16:15-0500 Body height 162.56 cm Jose Hwang II Other [facility] Other 06-05-2021 16:15-0500 Body mass index (BMI) [Ratio] 32.78 kg/m2 Jose Lakeland II Other [facility] Other 06-05-2021 16:15-0500 Body weight 86.64 kg Jose Jaiden II Other [facility] Other 04-09-2021 09:30-0400 Body height 162.56 cm Yehuda Camara Other [facility] Other 04-09-2021 09:30-0400 Body mass index (BMI) [Ratio] 32.61 kg/m2 Yehuda Camara Other [facility] Other 04-09-2021 09:30-0400 Body weight 86.18 kg Yehuda Camara Other [facility] Other Encounters Encounter Date Encounter Type Care Provider Facility Start: 02-15-2024 End: 02-15-2024 ambulatory DAWN MUNOZ Not Available Start: 03-04-2023 ambulatory SELF SELF [facility] Start: 03-04-2023 End: 03-04-2023 Office outpatient visit 15 minutes Cynthia Durant APRN-DEPOT MANAGER Work Phone: [facility] Comment on above: Hx of total knee art hroplasty, right (Primary Dx) Start: 03-04-2023 End: 03-04-2023 Subsequent hospital visit by physician Cynthia Durant APRN-DEPOT MANAGER Work Phone: [facility] Start: 11-01-2022 End: 11-01-2022 ambulatory BRIANNA ROMERO Facility: Start: 06-25-2022 ambulatory [facility] Start: 06-25-2022 End: 06-25-2022 Office outpatient visit 15 minutes Kee Serrato MD Work Phone: [facility] Comment on above: Hx of total knee art hroplasty, right (Primary Dx) Start: 06-25-2022 End: 06-25-2022 Subsequent hospital visit by physician Kee Serrato MD Work Phone: [facility] Start: 05-23-2022 End: 05-23-2022 ambulatory MD Rafa Verdin Work Phone: [facility] Work Phone: Start: 05-23-2022 End: 05-23-2022 Discharged Recurring MD Rafa Verdin Work Phone: [facility] [place] Start: 04-24-2022 End: 04-25-[address] DAWN MUNOZ . Facility: Start: 04-16-2022 ambulatory [facility] Start: 04-16-2022 End: 04-16-2022 Postop follow up visit related to original px Cynthia Durant MATT Work Phone: [facility] Comment on above: Hx of total knee art hroplasty, right (Primary Dx) Start: 03-26-2022 ambulatory SELF SELF [facility] Start: 03-26-2022 End: 03-26-2022 Postop follow up visit related to original px Cynthia Durant MATT Work Phone: [facility] Comment on above: Hx of total knee art hroplasty, right (Primary Dx) Start: 03-26-2022 End: 03-26-2022 Subsequent hospital visit by physician Cynthia GUTIERREZ Work Phone: [facility] Start: 03-11-2022 End: 03-11-2022 ambulatory KEE SERRATO Facility: Start: 02-11-2022 End: 02-12-[address] DAWN MUNOZ . Facility: Start: 02-06-2022 End: 02-06-[address] DAWN MUNOZ . Facility: Start: 01-16-2022 End: 01-16-2022 Office outpatient visit 40 minutes Kee Serrato MD Work Phone: [facility] Comment on above: Right knee pain, uns pecified chronicity (Primary Dx) Start: 01-16-2022 End: 01-16-2022 Office outpatient visit 25 minutes Rafael Hernandez DO Work Phone: [facility] Comment on above: Right hip pain (Prim rosana Dx); Primary localized osteoarthritis of right hip Start: 12-12-2021 End: 12-12-2021 ambulatory Rafael Hernandez Facility:[facility] Start: 12-06-2021 End: 12-06-2021 Office outpatient visit 25 minutes Rafael Hernandez DO Work Phone: [facility] Comment on above: Right hip pain (Prim rosana Dx); 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 Facili ty: Start: 11-13-2021 End: 11-14-[address] RAFA VERDIN . Facility: Start: 10-25-2021 End: 10-25-2021 Office outpatient visit 25 minutes Rafael Hernandez DO Work Phone: [facility] Comment on above: Primary localized os teoarthritis of right hip (Primary Dx) Start: 10-10-2021 End: 10-10-2021 Office outpatient new 30 minutes Kee Serrato MD Work Phone: [facility] Comment on above: Primary localized os teoarthritis of right hip (Primary Dx); Pain in prosthetic joint, initial encounter Start: 09-06-2021 End: 09-06-2021 ambulatory Yehuda Camara Facility:[facility] Start: 08-13-2021 End: 08-13-2021 ambulatory Jose Lakeland II Other [facility] Other Start: 08-13-2021 Telephone encounter Ojse Lakeland II [facility] Start: 08-12-2021 End: 08-12-2021 ambulatory Jose Lakeland II Other [facility] Other Start: 08-12-2021 Telephone encounter Jose Lakeland II [facility] Start: 07-30-2021 End: 07-30-2021 ambulatory Jose Lakeland II Other [facility] Other Start: 07-30-2021 Telephone encounter Jose Lakeland II [facility] Start: 06-24-2021 End: 06-24-2021 ambulatory Jose Jaiden II Other [facility] Other Start: 06-24-2021 Telephone encounter Jose Hwang II [facility] Start: 06-19-2021 (Procedure) Short Rick Artlauri [facility] Start: 06-19-2021 End: 06-19-2021 ambulatory Rick Stephenson Other [facility] Other Start: 06-05-2021 End: 06-05-2021 ambulatory Jose Hwang II Other [facility] Other Start: 06-05-2021 Office outpatient ne w 45 minutes Jose Hwang II [facility] Start: 05-07-2021 End: 05-07-2021 ambulatory Yehuda Camara Other [facility] Other Start: 05-07-2021 Office outpatient vi sit 15 minutes Yehuda Camara [facility] Start: 04-09-2021 Office outpatient vi sit 15 minutes eYhuda Camara [facility] Start: 09-07-2019 End: 09-07-2019 Patient encounter procedure Rafa Hoy -X[facility] Start: 05-02-2019 End: 05-03-2019 [facility] Start: 12-02-2018 End: 12-02-2018 Discharged Recurring Rafa Hoy -Physical Therapy [facility] [place] Procedures Date Procedure Procedure Detail Performing Clinician Start: 01-16-2022 Arthrocentesis aspir &/inj major jt/bursa w/us Rafael Hernandez DO Work Phone: Start: 10-25-2021 Arthrocentesis aspir &/inj major jt/bursa w/us Rafael Hernandez DO Work Phone: Start: 09-07-2019 X-ray of left knee Fernando las Hoy History of operative procedure on knee Jose Hwang II Other Plan of Treatment Date Care Activity Detail Author Start: 03-06-2023 Influenza vaccination INFLUENZA VACC INE (#1) [facility] Start: 03-04-2023 End: 03-04-2023 Patient encounter procedure 03/04/2023 Office Visit Orthopaedics Cynthia Durant, SUSHI CHEF-DEPOT MANAGER [address] [place] [address] [facility] Start: 06-25-2022 End: 06-25-2022 Patient encounter procedure 06/25/2022 Office Visit Orthopaedics Kee Serrato MD [address] [place] [address] [facility] Start: 04-24-2022 End: 04-24-2022 Patient encounter procedure 04/24/2022 Office Visit Orthopaedics Rafael Hernandez DO [address] [place] [address] [facility] Start: 04-16-2022 End: 04-16-2022 Patient encounter procedure 04/16/2022 Office Visit Orthopaedics Cynthia Durant, SUSHI CHEF-DEPOT MANAGER [address] [place] [address] [facility] Start: 03-06-2022 Influenza vaccination INFLUENZA VACC INE (#1) [facility] Start: 03-04-2022 End: 03-04-2022 Evaluation and management of inpatient [facility] Comment on above: 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, initial encounter REVISION ARTHROPLAST Y KNEE - right Start: 03-04-2022 End: 03-04-2022 REVISION ARTHROPLASTY KNEE REVISION ARTHROPLASTY KNEE 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, initial encounter 03/04/2022 10:00 AM EDT [facility] Start: 02-13-2022 End: 02-13-2022 ambulatory 02/13/2022 Pre-Operative Nurse Assessment Internal Medicine [facility] Pre Admission Start: 02-06-2022 End: 02-06-2022 ambulatory 02/06/2022 Pre-Operative Nurse Assessment Internal Medicine [facility] Pre Admission Start: 01-17-2022 End: 01-17-2022 Patient encounter procedure 01/17/2022 Office Visit Orthopaedics Rafael Hernandez, DO [address] [place] [address] [facility] Start: 12-06-2021 End: 12-06-2022 NM Bone 3 Phase Views NUC 3 PHASE LIMITED BONE SCAN Imaging Routine 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, subsequent encounter Expected: 12/06/2021, Expires: 12/06/2022 [facility] Comment on above: Expected: 12/06/2021 , Expires: 12/06/2022 Start: 12-06-2021 End: 12-06-2021 Patient encounter procedure 12/06/2021 Office Visit Orthopaedics Rafael Hernandez, DO [address] [place] [address] [facility] Start: 10-30-2021 COVID-19 VACCINE (4 - Booster for Pfizer series) COVID-19 VACCINE (4 - Booster for Pfizer series) [facility] Start: 08-26-2021 COVID-19 VACCINE (4 - Booster for Pfizer series) COVID-19 VACCINE (4 - Booster for Pfizer series) [facility] Start: 08-26-2021 COVID-19 VACCINE (4 - Pfizer series) COVID-19 VACCINE (4 - Pfizer series) [facility] Start: 2008 Zoster vaccine hzv l ruddy for subcutaneous use ZOSTER (SHINGLES) VACCINE (1 of 2) [facility] Start: 12-10-2003 Colonoscopy COLORECTAL CAN CER SCREENING DISCUSSION [facility] Start: 12-10-2003 Screening for malign ant neoplasm of colon COLORECTAL CANCER SCREENING DISCUSSION [facility] Start: 1998 Fasting lipid profile LIPID SCREENIN G [facility] Start: 1998 Lipid panel LIPID SCREENING [facility] Start: 1998 Screening for malign ant neoplasm of breast MAMMOGRAM SCREENING DISCUSSION [facility] Start: 1998 Screening mammography MAMMOGRA M SCREENING DISCUSSION [facility] Start: 12-10-1979 Screening for malign ant neoplasm of cervix CERVICAL CANCER SCREENING DISCUSSION [facility] Start: 1977 Third diphtheria, tetanus and acellular pertussis (DTaP) vaccination TDAP (ADULT) [facility] Start: 1976 Tetanus vaccination TETANUS [facility] Start: 1973 HIV screening HIV SCREENING DISCUSSION [facility] Start: 1960 Hepatitis B vaccination HEP B VACCINE (1 of 3 - 3-dose series) [facility] Start: 1960 Hepatitis C antibody , confirmatory test HEPATITIS C VIRUS SCREENING [facility] Start: 1960 Hepatitis C screening HEPATITI S C VIRUS SCREENING [facility] Start: 1960 Tetanus vaccination TETANUS [facility] Radiography for bone length studies XR BONE LENGTH STUDY Imaging Routine Pain in prosthetic joint, initial encounter 10/10/2021 12:54 PM EDT [facility] Radiography for bone length studies XR BONE LENGTH STUDY Imaging Routine Hx of total knee arthroplasty, right 06/25/2022 10:52 AM EST [facility] XR Knee - left 3 Views XR KNEE L EFT 3 VIEWS Imaging Routine Pain in prosthetic joint, initial encounter 10/10/2021 12:54 PM EDT [facility] XR Knee - right 3 Views XR KNEE RIGHT 3 VIEWS Imaging Routine Pain in prosthetic joint, initial encounter 10/10/2021 12:54 PM EDT [facility] XR Knee - right 3 Views XR KNEE RIGHT 3 VIEWS Imaging Routine Hx of total knee arthroplasty, right 03/26/2022 1:03 PM EDT [facility] XR Knee - right 3 Views XR KNEE RIGHT 3 VIEWS Imaging Routine Hx of total knee arthroplasty, right 04/16/2022 1:26 PM EDT [facility] XR Knee - right 3 Views XR KNEE RIGHT 3 VIEWS Imaging Routine Hx of total knee arthroplasty, right 06/25/2022 10:52 AM EST [facility] XR Knee - right 3 Views XR KNEE RIGHT 3 VIEWS Imaging Routine Hx of total knee arthroplasty, right 03/04/2023 10:58 AM EDT [facility] Immunizations Immunization Date Immunization Notes Care Provider Jun rivera 04-24-2022 influenza virus vaccine, unspecified formulation Cynthia Durant SUSHI CHEF-DEPOT MANAGER Work Phone: [facility] 05-24-2021 influenza virus vaccine, unspecified formulation Rafael Hernandez DO Work Phone: [email or web address] 12-16-2018 Kenalog -40 mg Yehuda Camara Other [facility] Other 09-22-2018 Kenalog -40 mg Yehuda Camara Other [facility] Other 05-17-2018 Euflexxa Yehuda Camara Other [facility] Other 05-10-2018 Euflexxa Yehuda Camara Other [facility] Other 05-03-2018 Euflexxa Yehuda Camara Other [facility] Other 04-13-2018 Kenalog -40 mg Yehuda Camara Other [facility] Other 11-03-2017 Kenalog -40 mg Yehuda Camara Other [facility] Other 02-24-2017 Kenalog -40 mg Yehuda Camara Other [facility] Other 12-11-2016 Kenalog -40 mg Yehuda Camara Other [facility] Other Payers Date Payer Category Payer Medicare [id number] 2022 Unknown [id number] 2021 Self-pay [id number] 2002 Unknown [id number] 1959 Unknown [id number] 1959 Unknown [id number] 1959 Unknown [id number] 1958 Unknown [id number] 2.16.84 0.1.169038.3.579.2.593 1958 Unknown [id number] 2.16.84 0.1.051363.3.579.2.593 1958 Unknown [id number] 2.16.84 0.1.944883.3.579.2.593 1958 Unknown [id number] 2.16.84 0.1.094395.3.579.2.593 1958 Unknown [id number] 2.16.84 0.1.381720.3.579.2.593 1958 Unknown [id number] 2.16.84 0.1.298860.3.579.2.593 1958 Unknown [id number] 2.16.84 0.1.520722.3.579.2.593 1958 Unknown [id number] 2.16.8 40.1.047568.3.579.2.983 1958 Unknown [id number] 2.16.8 40.1.047383.3.579.2.983 1958 Unknown [id number] 2.16.8 40.1.686311.3.579.2.983 1958 Unknown [id number] 2.16.8 40.1.694152.3.579.2.983 1958 Unknown [id number] 2.16.8 40.1.198905.3.579.2.983 1958 Unknown [id number] 2.16.8 40.1.589762.3.579.2.983 1958 Unknown [id number] 2.16.8 40.1.955060.3.579.2.983 1958 Unknown [id number] 2.16.8 40.1.305364.3.579.2.983 1958 Unknown [id number] 2.16.84 0.1.334228.3.579.2.1259 Unknown [id number] 2.16.8 40.1.375441.3.579.2.531 Unknown [id number] 2.16.8 40.1.385059.3.579.2.531 Unknown [id number] 2.16.8 40.1.505947.3.579.2.531 Social History Date Type Detail Facility Start: 05-02-2019 End: 10-10-2021 Tobacco smoking status NHIS Never smoked tobacco (finding) [facility] Start: 1960 Sex Assigned At Female F [facility] Start: 10-10-2021 Tobacco use and exposure Smokeless tobacco non-user [facility] Start: 10-10-2021 End: 03-04-2023 Alcohol intake Ex-drinker (finding) [facility] Start: 1960 Sex Assigned At Not on file A [employer] Start: 03-04-2023 Sex Assigned At N [employer] Other Start: 02-22-2022 End: 03-04-2022 Exposure to SARS-CoV-2 (event) Not sure [email or web address] Start: 03-04-2023 History of Social function [facility] Medical Equipment Procedure Code Equipment Code Equipment [...] knee, total, minimally invasive Orthopaedic cement, non-medicated ()[id number] FDA Start: 05-02-2019 Arthroplasty, knee, total, minimally [...] total, minimally invasive Uncoated knee femur prosthesis ()[id number] FDA Start: 05-02-2019 Arthroplasty, knee, total, minimally invasive Tibial insert ()[id number] FDA Start: 05-02-2019 Arthroplasty, knee, total, minimally invasive Polyethylene patella prosthesis ()[id number] FDA Start: 05-02-2019 Arthroplasty, knee, total, minimally invasive Uncoated knee tibia prosthesis, metallic ()[id number] FDA Start: 05-02-2019 Rotating Platfor m Insert [id number] Start: 03-04-2022 Goals Date Patient Goal Desired Activity /State Clinical Notes 09-03-2018 to 03-04-2023 Bel Stephan - 03/04/2023 11:00 AM Elvis Durant APRN-DEPOT MANAGER - 03/04/2023 11:00 AM Chantelle Rosario LPN - 06/25/2022 11:10 AM Brenda Serrato MD - 06/25/2022 11:10 AM EST Note Date & Type Note Facility 03-04-2023 History of Presen t illness Narrative Ortho Nurse - Established Patient Intake Room#: 4 Date: 03/04/2023 11:27 AM Patient: Katt Rahman MR#: [id number] : 1960 Age: 62 y.o. 1yr R TKA Pt stated she is doing better than what is was, but is having back issues and her hip is bothering her. Pt has pain and stiffness at times if sitting to long 4/10 on the pain scale. Referring Physician: Self, Self Insurance: Payor: [employer] EXCHANGE / Plan: [email or web address] / Product Type: *No Product type* / [...] Laterality: Right; Surgeon: Kee Serrato MD; Location: [facility] OR KNEE REPLACEMENT Right 05/02/2019 Dr. Laly [...] by Nasal route once for 1 dose. [place] into the nose as directed. Call 911. [...] by Nasal route once for 1 dose. [place] into the nose as directed. Call 911. [...] have reviewed the findings of the clinical gwot ia/ilo intelligence support and agree with their assessment. Ortho Nurse - Established Patient Intake Room#: 4 Date: 03/04/2023 11:27 AM Patient: Katt Rahman MR#: [id number] : 1960 Age: 62 y.o. 1yr R TKA Pt stated she is doing better than what is was, but is having back issues and her hip is bothering her. Pt has pain and stiffness at times if sitting to long 4/10 on the pain scale. Referring Physician: Self, Self Insurance: Payor: JESSENIA EXCHANGE / Plan: [facility] / Product Type: *No Product type* / [...] by Nasal route once for 1 dose. Ridgeway into the nose as directed. Call 911. [...] by Nasal route once for 1 dose. [place]way into the nose as directed. Call 911. [...] tramadol, and lisinopril. documented in this encounter [facility] 06-25-2022 History of Presen t illness Narrative Ortho Nurse - Established Patient Intake Room#: 3--4 month post-op visit of Right Knee revision (03-05-22). Her pain is a 3 today. She has continued to do home exercise. She still has pain when going up and down stairs. Date: 06/25/2022 11:38 AM Patient: Katt Rahman MR#: [id number] : 1960 Age: 61 y.o. Referring Physician: [...] by Nasal route once for 1 dose. Ridgeway into the nose as directed. Call 911. [...] have reviewed the findings of the clinical gwot ia/ilo intelligence support and agree with their assessment. Ortho Nurse - Established Patient Intake Room#: 3--4 month post-op visit of Right Knee revision (03-05-22). Her pain is a 3 today. She has continued to do home exercise. She still has pain when going up and down stairs. Date: 06/25/2022 11:38 AM Patient: Katt Rahman MR#: [id number] : 1960 Age: 61 y.o. Referring Physician: [...] by Nasal route once for 1 dose. [place]way into the nose as directed. Call 911. [...] tramadol, and lisinopril. documented in this encounter [facility] 04-16-2022 History of Presen t illness Narrative Ortho Nurse - Established Patient Intake Room#: 4 Date: 04/16/2022 1:39 PM Patient: Katt Rahman MR#: [id number] : 1960 Age: 61 y.o. R TKA [...] by Nasal route once for 1 dose. Ridgeway into the nose as directed. Call 911. [...] by Nasal route once for 1 dose. Ridgeway into the nose as directed. Call 911. [...] SUBJECTIVE: Katt is an established patient of the [facility]. Here today for followup. She [...] any questions or concerns in the meantime. ([id number]) I have reviewed the findings of the clinical gwot ia/ilo intelligence support and agree with their assessment. MATT Matos Ortho Nurse - Established Patient Intake Room#: 4 Date: 04/16/2022 1:39 PM Patient: Katt Rahman MR#: [id number] : 1960 Age: 61 y.o. R TKA [...] Laterality: Right; Surgeon: Kee Serrato MD; Location: [facility] OR KNEE REPLACEMENT Right 05/02/2019 Dr. Laly [...] by Nasal route once for 1 dose. Ridgeway into the nose as directed. Call 911. [...] by Nasal route once for 1 dose. Ridgeway into the nose as directed. Call 911. [...] tramadol, and lisinopril. documented in this encounter [facility] 03-26-2022 History of Presen t illness Narrative Ortho Nurse - Established Patient Intake Room#: 5 Date: 03/26/2022 1:26 PM Patient: Katt Rahman MR#: [id number] : 1960 Age: 61 y.o. 3 wks [...] by Nasal route once for 1 dose. Ridgeway into the nose as directed. Call 911. [...] by Nasal route once for 1 dose. Ridgeway into the nose as directed. Call 911. [...] understanding. All pertinent portions of the clinical gwot ia/ilo intelligence support documentation was reviewed and agree. MATT Matos I have reviewed the findings of the clinical gwot ia/ilo intelligence support and agree with their assessment. MATT Matos Ortho Nurse - Established Patient Intake Room#: 5 Date: 03/26/2022 1:26 PM Patient: Katt Rahman MR#: [id number] : 1960 Age: 61 y.o. 3 wks [...] by Nasal route once for 1 dose. Ridgeway into the nose as directed. Call 911. [...] by Nasal route once for 1 dose. [place]way into the nose as directed. Call 911. [...] tramadol, and lisinopril. documented in this encounter [facility] 01-16-2022 History of Presen t illness Narrative Ortho Nurse - Established Patient Intake Room#: 1 Date: 01/16/2022 1:15 PM Patient: Katt Rahman MR#: [id number] : 1960 Age: 61 y.o. Hx of Bilat tka by Dr Camara in 2019. Bilat knee pain R>L R knee pain and had a bone scan by Lindsay at [facility] in [place] showing possible loosening. She states it's a 4/10 with activity. Referring Physician: Kee Serrato MD [...] She was last seen by myself on 4/7/22, she was referral to Dr. Hernandez for a IA hip joint injection to rule out the hip as a contributory source. She has completed two of the hip injections since then and has had relief of symptoms in the groin but the knee pain persists. Dr. Hernandez ordered a bone scan which was done at [facility] in [place] which showed possible loosening of the left [...] a right knee revision arthroplasty for optimal [facility]p management. We have discussed in great detail [...] an appointment for [facility] [place] and the potential surgical date, and reviewing [...] Itching Lisinopril Cough documented in this encounter [facility] 01-16-2022 History of Presen t illness Narrative [...] this note may have been created with Easy[employer] or other software which leads to grammatical and typographical errors which are not client services representative of the intent with my spoken [...] has a h/o b/l TKA in 2019 ([place], [place]). She did see Dr. Serrato at my [...] this note may have been created with [employer] or other software which leads to grammatical and typographical errors which are not client services representative of the intent with my spoken words. Clinical credit control assistant/AT/MA was acting as a scribe today for this note. I have performed all essential components of the history, and physical exam. I have confirmed the diagnosis and developed a plan of care at this visit. I have reviewed the note following the visit and have made edits as appropriate to my evaluation and plan of care. Rafael Hernandez DO documented in this encounter [facility] 12-06-2021 History of Presen t illness Narrative [...] TKA in [address] Camara at [facility]. IMPRESSION/PLAN: Pertinent medical office records and [...] this note may have been created with Easy[employer] or other software which leads to grammatical and typographical errors which are not client services representative of the intent with my spoken [...] TKA in [address] Camara at [facility]. IMPRESSION/PLAN: Pertinent medical office records and [...] be done close [facility]. Follow-up in 6 weeks. Visit Vitals Temp 97.9 F (36.6 C) (Temporal) Ht 1.651 m (5' 5 ) Wt 93.6 kg (206 lb 6.4 oz) BMI 34.35 kg/m *Portions of this note may have been created with [employer] or other software which leads to grammatical and typographical errors which are not client services representative of the intent with my spoken words. Clinical credit control assistant/AT/MA was acting as a scribe today for this note. I have performed all essential components of the history, and physical exam. I have confirmed the diagnosis and developed a plan of care at this visit. I have reviewed the note following the visit and have made edits as appropriate to my evaluation and plan of care. Rafael Hernandez DO documented in this encounter [facility] 10-25-2021 History of Presen t illness Narrative [...] this note may have been created with [employer] or other software which leads to grammatical and typographical errors which are not client services representative of the intent with my spoken [...] T[place] [address] Camara at [facility]. Pt describes that she got B/L [...] this note may have been created with [employer] or other software which leads to grammatical and typographical errors which are not client services representative of the intent with my spoken words. Clinical credit control assistant/AT/MA was acting as a scribe today for this note. I have performed all essential components of the history, and physical exam. I have confirmed the diagnosis and developed a plan of care at this visit. I have reviewed the note following the visit and have made edits as appropriate to my evaluation and plan of care. Rafael Hernandez DO documented in this encounter [facility] 10-10-2021 History of Presen t illness Narrative Ortho Nurse - Patient Intake Room#: 2---Visit today for bilateral knee pain. She had bilateral TKA. Her right was done 05-02-2019 and left 09-27-2018. Dr. Camara from [place]. She has had pain in her knees [...] 10/10/2021 1:17 PM Patient: Katt Rahman MR#: [id number] : 1960 Age: 60 y.o. Referring Physician: [...] [x]cane, []bracing Are you followed by a meter maker? [] [x] Name: Are you followed by [...] left, knee, right Select Pain Scale: DVPRS ([employer] (QEEP) and Veterans Pain Rating Scale) (Adult-Cognitively Intact) [...] Itching Lisinopril Cough documented in this encounter [facility] 06-05-2021 Evaluation note Encounter Date Diagnosis Assessment Notes Jun, History of total right knee replacement (ICD-10 - Z96.651) Jun, History of left knee replacement (ICD-10 - Z96.652) Jun, Primary osteoarthritis of both hips (ICD-10 - M16.0) Based on location of pain and exam findings we will proceed with a intra articular bilateral hip injection. Risks and benefits of procedure explained to patient; patient verbalizes understandin gJarocho Jun, Other 1. I had a long [...] diagnostic purposes, possibly just a lidocaine injection. [facility] Other 11-02-2021 Evaluation note* Encounter Date Diagnosis [...] total left knee replacement (ICD-10 - Z96.652) [facility] Other 10-05-2021 Evaluation note* Encounter Date Diagnosis [...] total left knee replacement (ICD-10 - Z96.652) [facility] Other 07-08-2021 NoteChief Complaint referral for EGD [...] and bloating 2 weeks ago, admitted to [facility]; ct scan of abdominal with evidence of [...] see# 1 3. NSAID long-term use (Z79.1: manager terminal (current) use of non-steroidal anti- inflammatories (NSAID)) [...] Once a day (a (more content not included)...[facility] CenterComment [facility] above:Result Comment: Electronically Signed By: MIRIAM BRONSON, Tan Gross\Date and Time Signed: 01/10/21 16:27 [id number] NoteGastroenterology Upper Endoscopy, Adult Upper endoscopy is [...] including vitamins, herbs, eye drops, creams, and rqrd-xat-iwqeghv medicines. ? Any problems you or family [...] tells you to take them. ? Taking rfgb-rsi-akfrczw medicines, vitamins, herbs, and supplements. General instructions [...] your health care provider. Document Released: 06/19/2001 Dennys (more content not included)...[facility] History general Narrative - Reported* Type Description Date Medical History diabetes Medical History high cholesterol Medical History ulcers Surgical History ovarian cyst removal Surgical History left TKA 09/2018 Surgical History RTKA 04/2019 Hospitalization History see above [facility] Other Evaluation note* Diagnosis Primary localized osteoarthritis of right hip- Primary Pain in prosthetic joint, initial encounter documented in this encounter [email or web address]Evaluation note* Diagnosis Primary localized osteoarthritis of right hip- Primary documented in this encounter [employer]Evaluation note* Diagnosis Right hip pain- Primary Pain in joint, pelvic region and thigh 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, subsequent encounter documented in this encounter [employer]ir.comEvaluation noteNo InformationNort Widbook Other Evaluation note* Diagnosis Right hip pain- Primary Pain in joint, pelvic region and thigh Primary localized osteoarthritis of right hip documented in this encounter [employer]Evaluation note* Diagnosis Right knee pain, unspecified chronicity- Primary 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, initial encounter documented in this encounter [employer]comEvaluation note* Diagnosis Hx of total knee arthroplasty, right- Primary documented in this encounter [employer]Evaluation note* Diagnosis Hx of total knee arthroplasty, right- Primary documented in this encounter Salir.comEvaluation noteNo assessment information availableSycamore Medical Center Ctr Work Phone: Evaluation note* Diagnosis Hx of total knee arthroplasty, right- Primary documented in this encounter [employer] [facility] Consultation (Routine) - New Request Specialty Diagnoses / Procedures Referred By Elsy segal Referred To Contact [facility] Sports Diagnoses Primary localized osteoarthritis of right hip Kee Serrato MD [address] [place] [address] Rafael Hernandez DO [address] [place] [address] Referral ID Status Reason Start Date Expiration Date V isits Requested Visits Authorized [id number] New Request 10/10/2021 11/04/2022 1 1 * Diagnostic X-Ray (Routine) - Pending Review Specialty Diagnoses / Procedures Referred By Contac t Referred To Contact Diagnoses Pain in prosthetic joint, initial encounter Procedures XR KNEE RIGHT 3 VIEWS Kee Serrato MD [address] [place] [address] Referral ID Status Reason Start Date Expiration Date V isits Requested Visits Authorized [id number] Pending Review 10/10/2021 11/04/2022 1 1 * Diagnostic X-Ray (Routine) - Pending Review Specialty Diagnoses / Procedures Referred By Contac t Referred To Contact Diagnoses Pain in prosthetic joint, initial encounter Procedures XR KNEE LEFT 3 VIEWS Kee Serrato MD [address] [place] [address] Referral ID Status Reason Start Date Expiration Date V isits Requested Visits Authorized [id number] Pending Review 10/10/2021 11/04/2022 1 1 * Diagnostic X-Ray (Routine) - Pending Review Specialty Diagnoses / Procedures Referred By Contac t Referred To Contact Diagnoses Pain in prosthetic joint, initial encounter Procedures XR BONE LENGTH STUDY Kee Serrato MD [address] [place] [address] Referral ID Status Reason Start Date Expiration Date V isits Requested Visits Authorized [id number] Pending Review 10/10/2021 11/04/2022 1 1 [facility] Advance Directives No Advanced Directives Records Found [...] Procedures NUC 3 PHASE LIMITED BONE SCAN MO BONE IMAGING, 3 PHASE Rafael Hernandez DO [address] [place] [address] Referral ID Status Reason Start Date Expiration Date V isits Requested Visits Authorized [id number] New Request 12/06/2021 12/31/2022 2 2 Specialty Diagnoses / Procedures Referred By Contac t Referred To Contact Diagnoses Hx of total knee arthroplasty, right Procedures XR KNEE RIGHT 3 VIEWS Cynthia Durant APRN-CNP [address] [place] [address] Referral ID Status Reason Start Date Expiration Date V isits Requested Visits Authorized [id number] New Request 03/14/2022 04/08/2023 1 1 Referral ID Status Reason Start Date Expiration Date V isits Requested Visits Authorized [id number] New Request 04/04/2022 04/29/2023 1 1 Specialty Diagnoses / Procedures Referred By Contac t Referred To Contact Diagnoses Hx of total knee arthroplasty, right Procedures XR KNEE RIGHT 3 VIEWS Kee Serrato MD [address] [place] [address] Referral ID Status Reason Start Date Expiration Date V isits Requested Visits Authorized [id number] New Request 06/18/2022 07/13/2023 1 1 Specialty Diagnoses / Procedures Referred By Contac t Referred To Contact Diagnoses Hx of total knee arthroplasty, right Procedures XR BONE LENGTH STUDY Kee Serrato MD [address] [place] [address] Referral ID Status Reason Start Date Expiration Date V isits Requested Visits Authorized [id number] New Request 06/18/2022 07/13/2023 1 1 Referral ID Status Reason Start Date Expiration Date V isits Requested Visits Authorized [id number] Pending Review 03/03/2023 03/27/2024 1 1 Additional Source Comments INFORMATION SOURCE (unrecogn ized section and content) DATE CREATED AUTHOR 04/26/2021 Rosario [place] [facility] DATE CREATED AUTHOR AUTHOR'S ORGANIZ ATION 06/25/2022 [facility] DATE CREATED AUTHOR AUTHOR'S ORGANIZ ATION 11/03/2022 [facility] DATE CREATED AUTHOR AUTHOR'S ORGANIZ ATION 03/07/2023 [facility] DATE CREATED AUTHOR AUTHOR'S ORGANIZ ATION 02/16/2024 [facility] EPIC Reason for Visit (unrecogniz ed section and content) Reason Comments Pain New Patient Reason Comments Pain Specialty Diagnoses / Procedures Referred By Contac t Referred To Contact [facility] Sports Diagnoses Primary localized osteoarthritis of right hip Kee Serrato MD [address] [place] [address] Rafael Hernandez DO [address] [place] [address] Referral ID Status Reason Start Date Expiration Date V isits Requested Visits Authorized [id number] New Request 10/10/2021 11/04/2022 1 1 Reason Comments Pain Reason Comments Pain Follow-up Specialty Diagnoses / Procedures Referred By Contac t Referred To Contact Diagnoses Hx of total knee arthroplasty, right Procedures XR KNEE RIGHT 3 VIEWS Cynthia Durant, LIGIA-BLAYNE [address] [place] [address] Referral ID Status Reason Start Date Expiration Date V isits Requested Visits Authorized [id number] New Request 03/14/2022 04/08/2023 1 1 Reason Comments Post Op Visit Reason Comments Follow-up Specialty Diagnoses / Procedures Referred By Elsy segal Referred To Contact Diagnoses Hx of total knee arthroplasty, right Procedures XR KNEE RIGHT 3 VIEWS Kee Serrato MD [address] [place] [address] Referral ID Status Reason Start Date Expiration Date V isits Requested Visits Authorized [id number] New Request 06/18/2022 07/13/2023 1 1 Reason Comments Pain Post Op Visit Referral ID Status Reason Start Date Expiration Date V isits Requested Visits Authorized [id number] Pending Review 03/03/2023 03/27/2024 1 1 Care Teams (unrecognized sec tion and content) Ortho Assistant Relationship Specialty Start Date End Date Rafa Vedrin MD [address] [phone] PCP - General Family Medicine 10/10/21 Ortho Assistant Relationship Specialty Start Date End Date Rafa Verdin MD [address] [id number] PCP - General Family Medicine 10/10/21 Ortho Assistant Relationship Specialty Start Date End Date Rafa Verdin MD [address] [phone] PCP - General Family Medicine 10/10/21 Ortho Assistant Relationship Specialty Start Date End Date Rafa Verdin MD [address] [id number] PCP - General Family Medicine 10/10/21 Ortho Assistant Relationship Specialty Start Date End Date Rafa Verdin MD [address] [place] [address] PCP - General Family Medicine 10/10/21 Ortho Assistant Relationship Specialty Start Date End Date Rafa Verdin MD [address] [place] [address] PCP - General Family Medicine 10/10/21 Ortho Assistant Relationship Specialty Start Date End Date Rafa Verdin MD [address] [place] [address] PCP - General Family Medicine 10/10/21 Ortho Assistant Relationship Specialty Start Date End Date Rafa Verdin MD [address] [place] [address] PCP - General Family Medicine 10/10/21 Team Status: Inactive Member Role Status Dates Rafa Verdin MD Primary Care Provider Active Kee Serrato MD Attending Provider Active Team Status: Active Member Role Status Dates Rafa Verdin MD Primary Care Provider Active Ortho Assistant Relationship Specialty Start Date End Date Rafa Verdin MD [address] [place] [address] PCP - General Family Medicine 10/10/21 Ortho Assistant Relationship Specialty Start Date End Date Rafa Verdin MD [address] [place] [address] PCP - General Family Medicine 10/10/21 Ortho Assistant Relationship Specialty Start Date End Date Rafa Verdin MD [address] [place] [address] PCP - General Family Medicine 10/10/21 Ortho Assistant Relationship Specialty Start Date End Date Rafa Verdin MD [address] [place] [address] PCP - General Family Medicine 10/10/21 Goals [...] BE BASED ON THE PRIMARY CLINICAL RECORDS. [facility] [employer] [facility]. provides no warranty or guarantee of the accuracy or completeness of information in this document.
--- NOTE | 2024-05-13 07:48 | MM_ITS ---
Patient Name: DIALLO RAHMAN MR#: [id number] : 1960 Exam Date: 05/13/2024 Ordering Doctor: DR Abiodun Brewer . RADIOLOGY REPORT PROCEDURE: MM TOMOSYNTHESIS SCREENING BI COMPARISON: MM TOMOSYNTHESIS SCREENING BI, 05/12/2023. MG MAMM SCREEN 3D CARISSA CAD, 04/24/2022. MG MAMM SCREEN 3D CARISSA CAD, 03/29/2021. MG MAMM SCREEN CARISSA W CAD, 11/24/2018. INDICATIONS: Breast Cancer Screening Calculator Name [facility] Breast Cancer Risk Assessment Tool 5 Year Breast Cancer Risk 1.80% Lifetime Breast Cancer Risk 6.90% Personal Breast Cancer No Personal Ovarian Cancer No Treatments None Family Cancers Brother with kidney cancer at age 67. LOCATION: [facility] BREAST COMPOSITION: There are scattered areas of fibroglandular density. FINDINGS: DIAGNOSTIC CATEGORY 2--BENIGN FINDING: RIGHT BREAST: No significant suspicious finding. Scattered benign-appearing calcifications are present. No significant change has occurred. LEFT BREAST: No significant suspicious finding. Scattered benign-appearing calcifications are present. No significant change has occurred. RECOMMENDATIONS: ROUTINE MAMMOGRAM AND CLINICAL EVALUATION IN 12 MONTHS. PLEASE NOTE: A NORMAL MAMMOGRAM DOES NOT EXCLUDE THE POSSIBILITY OF BREAST CANCER. A CLINICALLY SUSPICIOUS PALPABLE LUMP SHOULD BE BIOPSIED. Dictated by: Joe Dutton M.D. on 05/13/2024 at 11:56 Approved by: Joe Dutton M.D. on 05/13/2024 at 11:59
--- NOTE | 2024-05-13 07:51 | XR_ITS ---
[address] [address] Patient Name: DIALLO RAHMAN MRN: [id number] date: 1960 Sex: F Assigned Patient Location: [facility] Current Patient Location: [facility] Accession/Order Number: [id number] Exam Date: 05/13/2024 08:05 Report Date: 05/13/2024 09:18 At the request of: DAWN MUNOZ Procedure: XR DEXA axial skeleton EXAMINATION: XR DEXA axial skeleton HISTORY: Postmenopausal State COMPARISON: DEXA bone densitometry 02/11/2022 TECHNIQUE: Dual-energy X-ray absorptiometry (DXA) was performed. FINDINGS: SPINE ANALYSIS: Average bone mineral density is 1.131 g/cm2. T-score (standard deviation relative to young adult mean): -0.4 . -1.1% change since prior study. HIP ANALYSIS: Lowest bone mineral density is within the left femoral neck, 0.897 g/cm2. T-score (standard deviation relative to young adult mean): -1.0 . -1.4% change since prior study. XR/XR DEXA axial skeleton IMPRESSION: World Health Organization Classification: Osteopenia - Moderate Fracture Risk FRAX: Cannot calculate. Pharmacologic treatment recommendations * No uniform recommendation applies to all patients. Management plans must be individualized. * Consider initiating pharmacologic treatment in postmenopausal women and men >= 50 years of age who have the following: Primary fracture prevention: * T-score <= - 2.5 at the femoral neck, total hip, lumbar spine, 33% radius (some uncertainty with existing data) by DXA. * Low bone mass (osteopenia: T-score between - 1.0 and - 2.5) at the femoral neck or total hip by DXA with a 10-year hip fracture risk >= 3% or a 10-year major osteoporosis-related fracture risk >= 20% (i.e., clinical vertebral, hip, forearm, or proximal humerus) based on the [place]-adapted FRAXregistered model. Secondary fracture prevention: * Fracture of the hip or vertebra regardless of BMD [4, 5]. * Fracture of proximal humerus, pelvis, or distal forearm in persons with low bone mass (osteopenia: T-score between - 1.0 and - 2.5). The decision to treat should be individualized in persons with a fracture of the proximal humerus, pelvis, or distal forearm who do not have osteopenia or low BMD [12, 13]. Randy MS, Gucci SL, Rolf KL, Kya EM, Sheila KG, AJ, Nevin ES. The clinician's guide to prevention and treatment of osteoporosis. Osteoporos Int. 2021;33(10):6937-0297. doi: 10.1007/t22674-843-42262-w. Epub 2021Oct 31. Erratum in: Osteoporos Int. 2021Jan 30;: PMID: [id number]; PMCID: [id number]. Electronically authenticated by: TAIWO BROWN Date: 05/13/2024 09:18
== END 2024-05-13 07:46 | disposition home or self-care (01) ==
LOC: MAMMO 07:45
PROVIDERS: PCP Family Medicine; Visit Provider Obstetrics & Gynecology
DX: Z12.31 Encounter for screening mammogram for malignant neoplasm of breast (principal); Z78.0 Asymptomatic menopausal state; Z80.51 Family history of malignant neoplasm of kidney; M85.80 Other specified disorders of bone density and structure, unspecified site
CPT/HCPCS: 77063; 77067; 77080

== ENCOUNTER 2024-07-28 08:27 | Outpatient (OUT) | payer MEDICARE, BC, SELFPAY ==
--- OUTSIDE RECORDS SUMMARY | 2024-07-28 08:46 | XMS_ITS | CCD ---
Author Organization [facility] Care Team Providers Care Laboratory Equipment Installer Name Role Phone Rafa Verdin Primary Care Provider UnavailYehuda Jordan Attending Provider Unavailable Rafa Verdin MD Primary Care Provider [phone] Yehuda Camara Unavailable Jose Sorensen II Unavailable Rick Stephenson Unavailable Rafa Verdin MD Primary Care Provider [phone] MD Rafa Verdin Primary Care Provider [phone] MD Kee Serrato Attending Provider BRIANNA ROMERO Admitting Unavailable RAYMONDY ., DR CRAIG Primary Care Unavailable BRIANNA ROMERO Attending Unavailable BRIANNA ROMERO Consulting Unavailable DAYANA DUTTA Consulting Unavailable HOY ., DR CRAIG Admitting Unavailable HOY ., DR CRAIG Attending Unavailable HOY ., DR CRAIG Primary Care Unavailable HOY ., DR CRAIG Admitting Unavailable HOY ., DR CRAIG Referring Unavailable HOY ., DR CRAIG Attending Unavailable HOY ., DR CRAIG Consulting Unavailable HOY ., DR CRAIG Primary Care Unavailable DANIELLA ., DR SEYMOUR Admitting Unavailable DANIELLA ., DR SEYMOUR Attending Unavailable HOY ., DR CRAIG Primary Care Unavailable DANIELLA ., DR SEYMOUR Consulting Unavailable DANIELLA ., DR SEYMOUR Admitting Unavailable DANIELLA ., DR SEYMOUR Attending Unavailable SHAZIA, DR RENETTA Akhtar Consulting Unavailable MARE ., DR CRAIG Primary Care Unavailable DANIELLA ., DR SEYMOUR Consulting Unavailable KEE SERRATO Admitting Unavailable MARE ., DR CRAIG Primary Care Unavailable KEE SERRATO Attending Unavailable KEE SERRATO Consulting Unavailable DANIELLA ., DR SEYMOUR Admitting Unavailable DANIELLA ., DR SEYMOUR Attending Unavailable SHAZIA, DR RENETTA Akhtar Consulting Unavailable HOY ., DR CRAIG Primary Care Unavailable DANIELLA ., DR GONZALESY Consulting Unavailable Rafa Verdin MD Primary Care Provider [phone] SELF, SELF Referring Unavailable RAN, CYNTHIA Attending Unavailable MARE RAFA M Primary Care Unavailable RAN, CYNTHIA Referring Unavailable RAN, CYNTHIA Attending Unavailable HOAleida RAFA M Primary Care Unavailable SELF, SELF Referring Unavailable RAN, CYNTHIA Attending Unavailable HOY, RAFA M Primary Care Unavailable SELF, SELF Referring Unavailable RAN, CYNTHIA Attending Unavailable HOY, RAFA M Primary Care Unavailable HOY, RAFA M Primary Care Unavailable RAN, CYNTHIA Attending Unavailable RAN, CYNTHIA Referring Unavailable KEE SERRATO Attending Unavailable RAYMONDY, RAFA M Primary Care Unavailable FOSTER, KEE Referring Unavailable SELF, SELF Referring Unavailable HOY, RAFA M Primary Care Unavailable FOSTER, KEE Attending Unavailable RAN, CYNTHIA Referring Unavailable RAN, CYNTHIA Attending Unavailable MARE, RAFA M Primary Care Unavailable ABIODUN BREWER Attending Unavailable Rafa Verdin MD Primary Care Provider [phone] Jose Sorensen MD Attending Provider Rafa Verdin MD Primary Care Provider [phone] Jose Sorensen II Attending Unavailann e Rafa Verdin Primary Care Unavailable Jose Sorensen II Admitting UnavailJose Carter II Attending Unavailabl Rafa Bran Primary Care Unavailable Jose Sorensen II Admitting Unavailabl e Unavailable Unavailable Unavailable Allergies Allergy Classification Reported Allergen(s) Allergy Type Date of Onset Reaction(s) Facility (20 sources) Diclofenac; Translations: [Diclofenac] Drug Allergy 07-06-19 18 Nausea Only, GI intolerance, Rash [facility] (20 sources) Lisinopril; Translations: [lisinopril] Drug Allergy 04-18-20 19 Cough, Unknown [facility] (20 sources) pioglitazone; Translations: [pioglitazone] Drug Allergy 09-28-19 19 Itching, Rash, Unknown (9 sources) Sulfonamides (Antibiotic); Translations: [Sulfa (Sulfonamide Antibiotics)] Allergy to substance 09-28-19 Rash [facility] (20 sources) traMADol; Translations: [tramadol] Drug Allergy 09-28-19 19 Itching, rash, Unknown [facility] (14 sources) Sulfonamides (Antibiotic) Propensity to adverse reactions to drug 10-11-19 Hives, Unknown [facility] (14 sources) Nisoldipine Drug Allergy 07-24-19 [facility] (10 sources) Sulfamethoxazole / Trimethoprim Drug Allergy 02-10-20 23 [facility] [employer] Other (8 sources) Sulfonamides (Antibiotic) Propensity to adverse reactions Unknown [facility] [employer] Other (6 sources) sulfaSALAzine Drug Allergy Unknown [facility] [employer] Other (1 source) meloxicam Drug Allergy [facility] (2 sources) pioglitazone Drug Allergy [facility] (2 sources) Sulfonamides (Antibiotic) Drug allergy (disorder) [facility] (2 sources) traMADol Drug Allergy [facility] (7 sources) Sulfamethoxazole; Translations: [sulfamethoxazole] Drug Allergy 07-24-19 Unknown Reaction [facility] (7 sources) Trimethoprim; Translations: [trimethoprim] Drug Allergy 07-24-19 Unknown Reaction [facility] (1 source) Nisoldipine Drug Allergy 07-24-19 [facility] Medications Current Medications Medication Drug Class(es) Dates Sig (Normalized) Sig (Original) acetaminophen 325 mg oral tablet (20 sources) Start: 03-04-2022 take 2 tablets by mouth every four hours as needed acetaminophen 325 MG tablet Take 2 tablets by mouth every 4 hours as needed for Mild Pain. 50 tablet 1 03/04/2022 Active Start: 04-18-2019 End: 05-03-2019 take 2 tablets by mouth every six hours as needed for pain Acetaminophen (Tylenol Extra Strength) 500 mg Tablet Discontinued 1000 MG PO Q6H as needed for Pain April 17, 2019 11:00pm May 03, 2019 8:44am Start: 09-13-2018 End: 09-28-2018 take 2 tablets by mouth every six hours as needed for pain Acetaminophen (Tylenol Extra Strength) 500 mg Tablet Discontinued 1000 MG PO Q6H as needed for Pain September 12, 2018 11:00pm September 28, 2018 10:29am take 1 tablet by jessica th every four hours Tylenol 325 MG 1 tablet as needed Orally every 4 hrs Active amoxicillin 500 mg oral capsule (10 sources) Penicillin-class Antibacterial Start: 12-05-2021 amoxicillin 500 MG capsule Prior to dental work. 0 12/05/2021 Active aspirin 81 mg delayed release oral tablet (14 sources) Platelet Aggregation Inhibitor, Nonsteroidal Anti-inflammatory Drug Start: 03-04-2022 aspirin EC [address] Take 1 table twice a day for 30days. This medication is for blood clot prevention. 60 tablet 0 03/04/2022 Active Start: 09-28-2018 End: 04-18-2019 take 1 tablet by mouth twice daily Aspirin 81 mg Tablet,Delayed Release (Dr/Ec) Discontinued 81 MG PO Twice daily 0 September 27, 2018 11:00pm April 18, 2019 9:51am Calcium Carbonate-Vit D-Min (CALCIUM 1200 PO) (2 sources) Calcium Carbonat e-Vit D-Min (CALCIUM 1200 PO) Take 1 capsule by mouth in the morning. Active Cbd Salve (8 sources) Start: 04-18-2019 apply 125 mg topically twice daily Cbd Salve Active 125 MG Topical Twice daily April 18, 2019 10:58am Start: 04-18-2019 apply 125 mg topically twice d aily Cbd Salve Active 125 MG TOPICAL Twice daily April 17, 2019 11:00pm 1 ml dexamethasone phosphate 4 mg/ml injection [...] to 3 weeks with therapy Aug, Active glimepiride 4 mg oral tablet (20 sources) Sulfonylurea Start: 09-13-2018 take 2 tablets by mouth once daily in the morning Glimepiride 4 mg tablet Active 8 MG PO Every morning September 12, 2018 11:00pm Start: 09-13-2018 take 8 mg by mouth o nce daily in the morning Glimepiride Active 8 MG Oral Every morning September 13, 2018 12:34pm Glimepiride 4 MG (Prior Auth: Rx Ref#:[id number]) Oral for 30 Active losartan potassium 100 mg oral tablet (20 sources) Angiotensin 2 Receptor Soto Start: 05-18-2024 Losartan 100 mg tablet Active 50 MG PO Every morning May 18, 2024 10:45am Start: 09-13-2018 End: 05-18-2024 take 1 tablet by mouth once daily in the morning Losartan 100 mg tablet Discontinued 100 MG PO Every morning September 12, 2018 11:00pm May 18, 2024 10:47am meloxicam 7.5 mg oral tablet (20 sources) Nonsteroidal Anti-inflammatory Drug Start: 03-04-2022 take 1 tablet by mouth once daily meloxicam 7.5 MG tablet Take 1 tablet by mouth daily. 30 tablet 1 05/05/2022 Active Start: 04-18-2019 take 1 tablet by jessica th once daily Meloxicam 15 mg Tablet Active 15 MG PO Daily April 17, 2019 11:00pm 24 hr metFORMIN hydrochloride 500 mg extended release oral tablet (20 sources) Biguanide Start: 05-18-2024 take 1 tablet by mouth every twenty-four hours Metformin 500 mg tablet extended release 24 hr Active MG PO May 18, 2024 12:00am FreeTextSig: (Prior Auth: Rx Ref#:[id number]) Oral; Note: Source Status: Taking; Qty: 360 delayed release tablet; Provider: MARE CRAIG Start: 09-13-2018 Metformin 500 mg tablet extended release 24 hr Active 1000 MG PO Twice daily September 12, 2018 11:00pm Start: 09-13-2018 take 1000 mg by mouth twice da paras Metformin Active 1000 MG Oral Twice daily September 13, 2018 12:34pm take 1 tablet by jessica th in the morning metFORMIN (Glucophage) 1000 MG tablet Take 1,000 mg by mouth in the morning and 1,000 mg in the evening. Active metFORMIN HCl ER 500 MG (Prior Auth: Rx Ref#:[id number]) Oral for 90 Active methylPREDNISolone 4 mg oral tablet (7 sources) Corticosteroid Start: 03-26-2022 methylPREDNIsolone 4 MG Tab Therapy Pack tablet Take 1 tablet by mouth As directed. follow package directions 21 tablet 0 03/26/2022 Active naloxone hydrochloride 40 mg/ml nasal spray (4 sources) Opioid Antagonist Start: 03-11-2022 End: 03-11-2022 naloxone 4 MG/0.1ML 1 spray by Nasal route once for 1 dose. Hegins into the nose as directed. Call 911. If no response in 2 minutes use a new nasal spray in other nostril. Repeat until help arrives. 1 Each 0 03/11/2022 Active omega-3 acid ethyl esters (fpc) 1000 mg oral capsule (8 sources) Start: 09-13-2018 take 1 capsule by mouth twice daily Neversink-3 Acid Ethyl Esters 1 gram capsule Active 3 GM PO Twice daily September 12, 2018 11:00pm omeprazole 20 mg delayed release oral capsule [...] 1 tablet Orally Once a day Active simvastatin 20 mg oral tablet (19 sources) HMG-CoA Reductase Inhibitor Start: 09-13-2018 take 1 tablet by mouth once daily at bedtime Simvastatin 20 mg tablet Active 20 MG PO Daily at bedtime September 12, 2018 11:00pm SITagliptin 100 mg oral tablet (20 sources) Dipeptidyl Peptidase 4 Inhibitor Start: 09-13-2018 End: 05-18-2024 take 1 tablet by mouth once daily Sitagliptin Phosphate (Januvia) 100 mg tablet Active 100 MG PO Daily May 18, 2024 12:00am sucralfate 1000 mg oral tablet (15 sources) [...] / oxyCODONE hydrochloride 5 mg oral tablet (20 sources) Opioid Agonist Start: 05-03-2019 End: 05-18-2024 take 1 tablet by mouth every four to six hours as needed for pain Oxycodone-Acetamino phen (Percocet) 5-325 mg tablet Discontinued 1 - 2 TAB PO EVERY 4-6 HOURS as needed for pain 30 May 03, 2019 May 18, 2024 10:46am Start: 09-22-2018 End: 10-12-2018 take 1 tablet by mouth every four to six hours as needed for pain Oxycodone-Acetaminophen (Percocet) 5-325 mg tablet Discontinued 1 - 2 TAB PO EVERY 4-6 HOURS as needed for pain 30 September 28, 2018 October 10, 2018 11:00pm October 11, 2018 11:02pm bisacodyl 5 mg delayed release oral tablet (7 sources) Stimulant Laxative Start: 09-28-2018 End: 04-18-2019 take 2 tablets by mouth once as needed for constipation Bisacodyl 5 mg Tablet,Delayed Release (Dr/Ec) Discontinued 10 MG PO Once as needed for Constipation 0 September 27, 2018 11:00pm April 18, 2019 9:56am Start: 09-28-2018 End: 04-18-2019 take 10 mg by mouth once Bisacodyl Discontinued 10 MG PO Once 0 September 27, 2018 11:00pm April 18, 2019 9:56am cholecalciferol 0.05 mg oral tablet (10 sources) Vitamin D Start: 04-18-2019 End: 05-18-2024 take 1 tablet by mouth once daily Cholecalciferol (Vitamin D3) (Vitamin D3) 2,000 unit Tablet Discontinued 2000 UNIT PO Daily April 17, 2019 11:00pm May 18, 2024 10:45am take 1 tablet by jessica th every twenty-four hours Vitamin D 50 MCG (2000 UT) 1 tablet Orally Once a day Active diclofenac sodium 0.01 mg/mg topical gel (20 [...] November, Not-Taking Start: 09-13-2018 End: 09-28-2018 take 1 tablet by mouth twice daily Diclofenac Sodium 75 mg tablet,delayed release (DR/EC) Discontinued 75 MG PO Twice daily September 12, 2018 11:00pm September 28, 2018 10:29am docusate sodium 100 mg oral capsule (15 sources) Start: 05-03-2019 End: 05-18-2024 take 1 capsule by mouth twice daily Docusate Sodium 100 mg Capsule Discontinued 100 MG PO Twice daily 0 May 02, 2019 11:00pm May 18, 2024 10:45am empagliflozin 25 mg oral tablet (10 sources) Sodium-Glucose Cotransporter 2 Inhibitor Start: 04-18-2019 End: 05-18-2024 take 1 tablet by mouth once daily in the morning Empagliflozin 25 mg tablet Discontinued 25 MG PO Every morning April 17, 2019 11:00pm May 18, 2024 10:45am hydrOXYzine pamoate 50 mg oral capsule (20 sources) Antihistamine Start: 05-03-2019 End: 05-18-2024 take 1 capsule by mouth every three hours as needed for muscle spasms Hydroxyzine Pamoate 25 mg Capsule Discontinued 25 MG PO Q3H as needed for Muscle Spasm 0 May 02, 2019 11:00pm May 18, 2024 10:45am Start: 05-03-2019 End: 05-18-2024 take 1 capsule by mouth every three hours as needed for muscle spasms Hydroxyzine Pamoate 50 mg Capsule Discontinued 50 MG PO Q3H as needed for Muscle Spasm 0 May 02, 2019 11:00pm May 18, 2024 10:45am Start: 09-28-2018 End: 04-18-2019 take 1 capsule by mouth every four hours Hydroxyzine Pamoate (Vistaril) 25 mg capsule Discontinued 25 MG PO Q4H September 27, 2018 11:00pm April 18, 2019 9:56am Start: 09-22-2018 take 1 capsule by [facility] every eight hours Vistaril 25 MG 1 capsule as needed Orally every 8 hrs for 7 days DO NOT FILL UNTIL 09/26/2018 Sep, Not-Taking 10 ml lidocaine hydrochloride 10 mg/ml injection (2 sources) Antiarrhythmic, Amide Local Anesthetic Start: 10-25-2021 End: 10-25-2021 lidocaine (XYLOCAINE) 10 mg/mL injection 3 mL rivaroxaban 10 mg oral tablet (8 sources) Factor Xa Inhibitor Start: 05-03-2019 End: 05-18-2024 take 1 tablet by mouth once daily Rivaroxaban (Xarelto) 10 mg Tablet Discontinued 10 MG PO DAILY@1700 0 May 02, 2019 11:00pm May 18, 2024 10:46am 1 ml triamcinolone acetonide 40 mg/ml prefilled syringe (4 sources) Corticosteroid Start: 01-16-2022 End: 01-16-2022 triamcinolone (KENALOG-40) injection 1 mL Start: 10-25-2021 End: 10-25-2021 triamcinolone (KENALOG-40) i njection 1 mL Problems Active Problems Problem Classification Problem Date Documented Da te Episodic/Chronic Calculus of urinary tract (1 source) Personal history of urinary calculi; Translations: [PERSONAL HISTORY OF URINARY CALCULI] Onset: 11-03-2022 Episodic Complication of device; implant or graft (12 sources) Joint pain; Translations: [Pain due to internal orthopedic prosthetic devices, implants and grafts, initial encounter] Onset: 03-04-2022 Episodic Congestive heart failure; nonhypertensive (1 source) [...] HEART DISEASE W/HEART FAIL] Onset: 11-15-2021 Chronic Nutritional deficiencies (4 sources) Vitamin D deficiency, unspecified; Translations: [VITAMIN D DEFICIENCY UNSPECIFIED] Onset: 11-13-2021 Chronic Osteoarthritis (20 sources) Osteoarthritis of right hip joint; Translations: [Unilateral primary osteoarthritis, right hip] Onset: 04-09-2021 Resolved: 06-05-2021 Chronic Comment on above: Problem List clean-u p per request of Phys. 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 EHR Cmte Other connective tissue disease (10 sources) Presence of right artificial knee joint; Translations: [Knee joint replacement] Onset: 04-09-2021 Resolved: 06-05-2021 Chronic Other connective tissue disease (3 sources) Presence of left artificial knee joint; Translations: [Status post total left knee replacement Z96.652] Onset: 04-09-2021 Resolved: 06-05-2021 Chronic Other connective tissue disease (4 sources) History of right total knee replacement; Translations: [Presence of right artificial knee joint] Chronic Other connective tissue disease (3 sources) History of revision of right total knee arthroplasty; Translations: [Presence of right artificial knee joint] 07-07-2024 Chronic Other connective tissue disease (3 sources) Trochanteric bursitis; Translations: [Trochanteric bursitis, right hip] 07-07-2024 Episodic Other connective tissue disease (3 sources) Trochanteric bursitis, right hip; Translations: [Enthesopathy of hip region] 07-07-2024 Episodic Other nervous system disorders (1 source) Chronic pain; Translations: [Other chronic pain] 07-18-2024 Chronic Other nervous system disorders (1 source) Other chronic pain; Translations: [Other chronic pain] 07-18-2024 Chronic Other non-traumatic joint disorders (2 sources) Pain in right hip joint; Translations: [Pain in right hip] Episodic Other non-traumatic joint disorders (7 sources) Pain in right knee; Translations: [Pain in joint, lower leg] Onset: 11-01-2022 Episodic Other non-traumatic joint disorders (6 sources) Hip pain; Translations: [Pain in right hip] 05-17-2024 Episodic Other non-traumatic joint disorders (7 sources) Pain in right hip; Translations: [Pain in joint, pelvic region and thigh] Onset: 05-18-2024 05-18-2024 Episodic Residual codes; unclassified (1 source) Acquired absence of ovaries, unilateral; Translations: [ACQUIRED ABSENCE OVARIES UNILATERAL] Onset: 11-03-2022 Episodic Unclassified (1 source) LOW BACK PAIN, UNSPECIFIED; Translations: [LOW BACK PAIN, UNSPECIFIED] Onset: 11-03-2022 Past or Other Problems Problem Classification Problem Date Documented Da te Episodic/Chronic Deficiency and other anemia (1 source) Anemia, [...] Test Name Value Interpretation Reference Range Facility Basophils Auto (Bld) [#/Vol] Ordered By: Jose Sorensen on 07-07-2024 Basophils (Bld) [#/Vol] Automated basoph il count 0.0-0.2 [facility] Basophils/100 WBC Auto (Bld) Ordered By: Jose Sorensen on 07-07-2024 Basophils/100 WBC (Bld) Automated basophil % . [facility] C reactive protein [Mass/vol ume] in Serum or PlasmaOrdered By: Jose Sorensen on 07-07-2024 CRP [Mass/Vol] C reactive protein [Mass/volume] in Serum or Plasma 0.0-0.5 [facility] C-Reactive Proteinon 025 CRP [Mass/Vol] mg/L Normal 0.0-0.5 [facility] Comment on above: Result Comment: PERF ORMED BY: [place] [address] PATHOLOGIST MAMMOGRAPHY SUPERVISOR GOSIA DE DIOS M.D. Performed By: #### E SR, CRP, DDIMER, CBC #### [facility] [address] [place] [address] Complete Blood Count Auto Di ffon 07-07-2024 Basophils (Bld) [#/Vol] 0.0 10*3/uL Normal 0.0-0.2 [facility] Comment on above: Performed By: #### E SR, CRP, DDIMER, CBC #### [facility] [address] [place] [address] Basophils/100 WBC (Bld) 0.5 % Normal . T lindy [facility] Comment on above: Performed By: #### E SR, CRP, DDIMER, CBC #### [address] Eosinophils (Bld) [#/Vol] 0.1 10*3/uL Normal 0.0-0.45 [facility] Comment on above: Performed By: #### E SR, CRP, DDIMER, CBC #### [address] Eosinophils/100 WBC (Bld) 1.6 % Normal . [facility] Comment on above: Performed By: #### E SR, CRP, DDIMER, CBC #### [address] Erythrocyte distribution width (RBC) [Ratio] 13.0 % Normal 11.9-15.3 [facility] Comment on above: Performed By: #### E SR, CRP, DDIMER, CBC #### [address] Hematocrit (Bld) [Volume fraction] 39.4 % Normal 34.0-46.4 [facility] Comment on above: Performed By: #### E SR, CRP, DDIMER, CBC #### [address] Hemoglobin (Bld) [Mass/Vol] 13.2 g/dL Normal 11.8-15.4 [facility] Comment on above: Performed By: #### E SR, CRP, DDIMER, CBC #### [address] Lymphocytes (Bld) [#/Vol] 1.5 10*3/uL Normal 1.00-4.8 [facility] Comment on above: Performed By: #### E SR, CRP, DDIMER, CBC #### [address] Lymphocytes/100 WBC (Bld) 24.2 % Normal . [facility] Comment on above: Performed By: #### E SR, CRP, DDIMER, CBC #### [address] MCH (RBC) [Entitic mass] 30.6 pg Normal 24.7-34.3 [facility] Comment on above: Performed By: #### E SR, CRP, DDIMER, CBC #### [address] MCV (RBC) [Entitic vol] 91.3 fL Normal 80-100 [facility] Comment on above: Performed By: #### E SR, CRP, DDIMER, CBC #### [address] Mean Corpuscular HGB Conc 33.5 g/dL Normal 32.0-35.0 [facility] Comment on above: Performed By: #### E SR, CRP, DDIMER, CBC #### [address] Monocytes (Bld) [#/Vol] 0.5 10*3/uL Normal 0.0-0.8 [facility] Comment on above: Performed By: #### E SR, CRP, DDIMER, CBC #### [address] Monocytes/100 WBC (Bld) 7.3 % Normal . [facility] Comment on above: Performed By: #### E SR, CRP, DDIMER, CBC #### [address] Neutrophils (Bld) [#/Vol] 4.2 10*3/uL Normal 1.8-7.7 [facility] Comment on above: Performed By: #### E SR, CRP, DDIMER, CBC #### [place] [address] [place] Neutrophils/100 WBC (Bld) 66.4 % Normal . [facility] Comment on above: Performed By: #### E SR, CRP, DDIMER, CBC #### [address] NRBC% 0.1 /100{WBC} Normal 0-0.[address] [facility] Comment on above: Performed By: #### E SR, CRP, DDIMER, CBC #### [facility] [address] Platelet mean volume (Bld) [Entitic vol] 7.3 fL Normal 6.3-10.7 [facility] Comment on above: Performed By: #### E SR, CRP, DDIMER, CBC #### [facility] [address] [place] [id number] [facility] Platelets (Bld) [#/Vol] 301 10*3/uL Normal 150-450 [facility] Comment on above: Performed By: #### E SR, CRP, DDIMER, CBC #### [facility] [address] RBC (Bld) [#/Vol] 4.31 10*6/uL Normal 3.60-5.00 [facility] Comment on above: Performed By: #### E SR, CRP, DDIMER, CBC #### [facility] [address] [id number] [facility] WBC (Bld) [#/Vol] 6.3 10*3/uL Normal 3.8-11.6 [facility] Comment on above: Performed By: #### E SR, CRP, DDIMER, CBC #### [facility] [address] D-Dimer High Sensitivityon 0 - D-Dimer High Sensitivity 256 ng/mL High 0-243 [facility] Comment on above: Result Comment: The reference range for D-dimer is <243 ng/mL D-dimer units. D-dimer results must be used in conjunction with a clinical pretest probability (PTP) assessment model for deep vein thrombosis (DVT) and pulmonary embolism (PE). Results <230 ng/mL d-dimer units can be used as a negative predictor in patients with low or moderate probability for DVT/PE. Results above the exclusion threshold of 230 ng/ml D-dimer units for DVT/PE may indicate the need for further diagnostic testing. D-Dimer can be increased in hospitalized patients due to co-morbid conditions. A hematocrit value greater than 55% may lead to inaccurate results in coagulation testing. Patients having hematocrit values >55% require a special collection tube for coagulation studies. Please contact the laboratory at [phone] for redraw instructions. PERFORMED BY: [place] [address] PATHOLOGIST MAMMOGRAPHY SUPERVISOR GOSIA DE DIOS M.D. Performed By: #### E SR, CRP, DDIMER, CBC #### [address] Eosinophils Auto (Bld) [#/Vo l]Ordered By: Jose Sorensen on 07-07-2024 Eosinophils (Bld) [#/Vol] Automated eosinophil count 0.0-0.45 [facility] Eosinophils/100 WBC Auto (Bl d)Ordered By: Jose Sorensen on 07-07-2024 Eosinophils/100 WBC (Bld) Automated eosinophil % . [facility] Erythrocyte Sedimentation Ra yeimi 07-07-2024 ESR (Bld) [Velocity] 9 mm/h Normal 0-29 [facility] Comment on above: Result Comment: PERF ORMED BY: [place] [address] PATHOLOGIST MAMMOGRAPHY SUPERVISOR GOSIA DE DIOS M.D. Performed By: #### E SR, CRP, DDIMER, CBC #### [address] Erythrocyte distribution wid th Auto (RBC) [Ratio]Ordered By: Jose Sorensen on 07-07-2024 Erythrocyte distribution width (RBC) [Ratio] Erythrocyte distribution width [Ratio] by Automated count 11.9-15.3 [facility] Erythrocyte sedimentation ra te by Photometric methodOrdered By: Jose Sorensen on 07-07-2024 ESR Photometric method (Bld) [Velocity] Erythrocyte sedimentation rate by Photometric method 0-29 [facility] Fibrin D-dimer [Presence] in Platelet poor plasma by Latex agglutinationOrdered By: Jose Sorensen on 07-07-2024 Fibrin D-dimer LA Ql (PPP) Fibrin D-dimer [Presence] in Platelet poor plasma by Latex agglutination High 0-243 [facility] Comment on above: The reference range for D-dimer is <243 ng/mL D-dimer units.D-dimer results must be used in conjunction with a clinicalpretest probability (PTP) assessment model for deep veinthrombosis (DVT) and pulmonary embolism (PE). Results <230ng/mL d-dimer units can be used as a negative predictor inpatients with low or moderate probability for DVT/PE.Results above the exclusion threshold of 230 ng/ml D-dimerunits for DVT/PE may indicate the need for furtherdiagnostic testing.D-Dimer can be increased in hospitalized patients due toco-morbid conditions.A hematocrit value greater than 55% may lead to inaccurate results in coagulation testing. Patients having hematocrit values >55% require a special collection tube for coagulation studies. Please contact the laboratory at [phone] for redraw instructions. Hematocrit Auto (Bld) [Volum e fraction]Ordered By: Jose Sorensen on 07-07-2024 Hematocrit (Bld) [Volume fraction] Hematocrit [Volume Fraction] of Blood by Automated count 34.0-46.4 [facility] Hemoglobin [Mass/volume] in BloodOrdered By: Jose Sorensen on 07-07-2024 Hemoglobin (Bld) [Mass/Vol] Hemoglobin [Mass/volume] in Blood 11.8-15.4 [facility] Leukocytes [#/volume] correc eloisa for nucleated erythrocytes in Blood by Automated counOrdered By: Jose Sorensen on 07-07-2024 WBC corrected for nucl RBC Auto (Bld) [#/Vol] Leukocytes [#/volume] corrected for nucleated erythrocytes in Blood by Automated coun 3.8-11.6 [facility] Lymphocytes Auto (Bld) [#/Vo l]Ordered By: Jose Sorensen on 07-07-2024 Lymphocytes (Bld) [#/Vol] Lymphocytes [#/volume] in Blood by Automated count 1.00-4.8 [facility] Lymphocytes/100 WBC Auto (Bl d)Ordered By: Jose Sorensen on 07-07-2024 Lymphocytes/100 WBC (Bld) Lymphocytes/100 leukocytes in Blood by Automated count . [facility] MCH Auto (RBC) [Entitic mass ]Ordered By: Jose Sorensen on 07-07-2024 MCH (RBC) [Entitic mass] MCH [Entitic mass] by Automated count 24.7-34.3 [facility] MCHC Auto (RBC) [Mass/Vol]Or dered By: Jose Sorensen on 07-07-2024 MCHC (RBC) [Mass/Vol] MCHC [Mass/volume] by Automated count 32.0-35.0 [facility] MCV Auto (RBC) [Entitic vol] Ordered By: Jose Sorensen on 07-07-2024 MCV (RBC) [Entitic vol] MCV [Entitic vol ume] by Automated count 80-100 [facility] Monocytes Auto (Bld) [#/Vol] Ordered By: Jose Sorensen on 07-07-2024 Monocytes (Bld) [#/Vol] Automated blood monocyte count 0.0-0.8 [facility] Monocytes/100 WBC Auto (Bld) Ordered By: Jose Sorensen on 07-07-2024 Monocytes/100 WBC (Bld) Automated monocyte % . [facility] Neutrophils Auto (Bld) [#/Vo l]Ordered By: Jose Sorensen on 07-07-2024 Neutrophils (Bld) [#/Vol] Neutrophils [#/volume] in Blood by Automated count 1.8-7.7 [facility] Neutrophils/100 WBC Auto (Bl d)Ordered By: Jose Sorensen on 07-07-2024 Neutrophils/100 WBC (Bld) Automated neutrophil % . [facility] Nucleated erythrocytes [Pres ence] in Blood by Automated countOrdered By: Jose Sorensen on 07-07-2024 Nucleated RBC Auto Ql (Bld) Nucleated erythrocytes [Presence] in Blood by Automated count 0-0.5 [facility] Platelet mean volume Auto (B ld) [Entitic vol]Ordered By: Jose Sorensen on 07-07-2024 Platelet mean volume (Bld) [Entitic vol] Platelet mean volume [Entitic volume] in Blood by Automated count 6.3-10.7 [facility] Platelets Auto (Bld) [#/Vol] Ordered By: Jose Sorensen on 07-07-2024 Platelets (Bld) [#/Vol] Platelets [#/vol ume] in Blood by Automated count 150-450 [facility] RBC Auto (Bld) [#/Vol]Ordere d By: Jose Sorensen on 07-07-2024 RBC (Bld) [#/Vol] Erythrocytes [#/volume] in Blood by Automated count 3.60-5.00 [facility] WBC Auto (Bld) [#/Vol]Ordere d By: Jose Sorensen on 07-07-2024 WBC (Bld) [#/Vol] Leukocytes [#/volume] in Blood by Automated count 3.8-11.6 [facility] X-ray reportOrdered By: Tomas Arambula on 05-18-2024 Study report [facility] [place] [facility] [address] [place] [address] XRay Report Signed Patient: Katt Rahman MR#: [id number] : 1960 Acct:[id number] Age/Sex: 63 / F ADM Date: 4 Loc: [facility] Room: Type: [facility] Attending Dr: Jose Sorensen II, MD Copies to: Jose Sorensen MD~ Ordering Provider: Jose Sorensen MD Date of Service: 05/18/24 XR/XR hip RT min 2V(w/wo pelvis)*: M25.551 - Pain in right hip XR hip RT min 2V(w/wo pelvis)* 05/18/2024 10:41 AM SIGNS AND SYMPTOMS: Right knee pain, anterior right hip pain PROTOCOL: Frontal radiograph the pelvis with crosstable lateral view of the right hip COMPARISON: None FINDINGS: There is severe narrowing of the right hip joint space with mild narrowing of the left hip joint space. There is no evidence of fracture or dislocation. Thebony ring of the pelvis is intact. Vascular calcifications are present in the pelvis. XR/XR hip RT min 2V(w/wo pelvis)* IMPRESSION: Significant degenerative changes are noted in the right hip with lesser degrees of degenerative change on the left. No acute bony injury. Impression dictated by: Tomas Arambula M.D.05/18/2024 1:35 PM Dictation Location: [place] [address] Transcribed By: [facility] 05/18/24 0395 Dictated By: Tomas Arambula II, MD 05/18/241333 Signed By: 05/18/241334 [facility] Work Phone: Study report [facility] [place] [facility] [address] XRay Report Signed Patient: Katt Rahman MR#: [id number] : 1960 Acct:[id number] Age/Sex: 63 / F ADM Date: 4 Loc: [facility] Room: Type: REG CLI Attending Dr: Jose Sorensen II, MD Copies to: Jose Sorensen MD~ Ordering Provider: Jose Sorensen MD Date of Service: 05/18/24 XR/XR knee RT 3V - NOT FOR ER USE: PAIN XR knee RT 3V - NOT FOR ER USE 05/18/2024 10:41 AM SIGNS AND SYMPTOMS: Right knee pain PROTOCOL: Frontal, lateral, and sunrise views of the right knee COMPARISON: 04/09/2021 FINDINGS: There is total right knee arthroplasty hardware status post revision. There is no hardware complication or malalignment. No soft tissue swelling. No fracture. XR/XR knee RT 3V - NOT FOR ER USE IMPRESSION: Uncomplicated total right knee arthroplasty hardware status post revision. Impression dictated by: Tomas Arambula M.D.05/18/2024 4:37 PM Dictation Location: [place] [address] Transcribed By: [facility] 05/18/24 1637 Dictated By: Tomas Arambula II, MD 05/18/24 1632 Signed By: 05/18/24 1637 [facility] Work Phone: XR hip RT min 2V(w/wo pelvis )*on 05-18-2024 XR hip RT min 2V(w/wo pelvis)* [facility] [place] [facility] [address] [place] [address] XRay Report Signed Patient: Katt Rahman MR#: [id number] : 1960 Acct:[id number] Age/Sex: 63 / F ADM Date: 05/18/24 Loc: [facility] Room: Type: REG CLI Attending Dr: Jose Sorensen II, MD Copies to: Jose Sorensen MD Ordering Provider: Jose Sorensen MD Date of Service: 05/18/24 XR/XR hip RT min 2V(w/wo pelvis)*: M25.551 - Pain in right hip XR hip RT min 2V(w/wo pelvis)* 05/18/2024 10:41 AM SIGNS AND SYMPTOMS: Right knee pain, anterior right hip pain PROTOCOL: Frontal radiograph the pelvis with crosstable lateral view of the right hip COMPARISON: None FINDINGS: There is severe narrowing of the right hip joint space with mild narrowing of the left hip joint space. There is no evidence of fracture or dislocation. The bony ring of the pelvis is intact. Vascular calcifications are present in the pelvis. XR/XR hip RT min 2V(w/wo pelvis)* IMPRESSION: Significant degenerative changes are noted in the right hip with lesser degrees of degenerative change on the left. No acute bony injury. Impression dictated by: Tomas Arambula M.D.05/18/2024 1:35 PM Dictation Location: [place] [address] Transcribed By: [facility] 05/18/24 1335 Dictated By: Tomas Arambula II, MD 05/18/24 133 Signed By: 05/18/24 1335 Normal [facility] XR knee RT 3V - NOT FOR ER U Edel 05-18-2024 XR knee RT 3V - NOT FOR ER USE [facility] [place] [facility] [address] [place] [address] XRay Report Signed Patient: Katt Rahman MR#: [id number] : 1960 Acct:[id number] Age/Sex: 63 / F ADM Date: 05/18/24 Loc: [facility] Room: Type: [facility] Attending Dr: Jose Sorensen II, MD Copies to: Jose Sorensen MD Ordering Provider: Jose Sorensen MD Date of Service: 05/18/24 XR/XR knee RT 3V - NOT FOR ER USE: PAIN XR knee RT 3V - NOT FOR ER USE 05/18/2024 10:41 AM SIGNS AND SYMPTOMS: Right knee pain PROTOCOL: Frontal, lateral, and sunrise views of the right knee COMPARISON: 04/09/2021 FINDINGS: There is total right knee arthroplasty hardware status post revision. There is no hardware complication or malalignment. No soft tissue swelling. No fracture. XR/XR knee RT 3V - NOT FOR ER USE IMPRESSION: Uncomplicated total right knee arthroplasty hardware status post revision. Impression dictated by: Tomas Arambula M.D.05/18/2024 4:37 PM Dictation Location: [facility]- Transcribed By: [facility] 05/18/24 163 Dictated By: Tomas Arambula II, MD 05/18/241631 Signed By: 05/18/24 1637 Normal [facility] XR HIP RT 2 3V W PELVISon [...] by: DAYANA DUTTA Date: 2022-11-01 20:39 Normal [facility] XR KNEE RT 4V or >on 023 XR KNEE RT 4V or > IMAGES REVIEWED: XR KNEE RT 4V or > COMPARISON: 06/25/2022. CLINICAL INDICATION: Pain FINDINGS/IMPRESSION: No evidence of acute osseous abnormality of the right knee. Constrained longstem right total knee arthroplasty without evidence of complication. No joint effusion. Electronically authenticated by: DAYANA DUTTA Date: 2022-11-01 20:37 Normal [facility] XR LSPINE 2_3 VIEWSon 2022 XR [...] DAYANA DUTTA Date: 2022-11-01 20:41 Normal [facility] [place] MG MAMM SCREEN 3D CARISSA CADon 04-24-2022 MG MAMM SCREEN 3D CARISSA CAD Patient: KATT RAHMAN Exam Date: 04/24/2022 : 1960 Gender:F Ordering : DR ABIODUN BREWER . Admission #: [id number] Family : Order #: [id number] CLICK HERE TO VIEW EXAM RADIOLOGY REPORT [...] kidney cancer at age 65. LOCATION: [facility] [place] BREAST COMPOSITION: Heterogeneously dense,which may obscure small [...] Mccray MD on 04/24/2022 at 12:05 Normal [facility] PROF CHEM 8 (BAS METB)on Anion gap [Moles/Vol] 12.3 mmol/L Normal [facility] Comment on above: Performed By: #### B MP #### [facility] [place] [facility] [address] [place] [address] [address] Katlyn Barahona Calcium [Mass/Vol] 8.8 mg/dL Normal 8.5-10.1 [facility] Comment on above: Performed By: #### B MP #### [facility] [place] [facility] [address] [place], [place] [address] Dr. Katlyn Barahona Chloride [Moles/Vol] 104 mmol/L Normal 98-107 [facility] Comment on above: Performed By: #### B MP #### [facility] [place] [facility] [address] [place] [address] [address] Katlyn Barahona CO2 [Moles/Vol] 27.9 mmol/L Normal 21.0-32.0 [facility] Comment on above: Performed By: #### B MP #### [facility] [place] [facility] [address] [place] [address] [address] Katlyn Barahona Creatinine [Mass/Vol] 1.07 mg/dL Critically high 0.55-1.02 [facility] Comment on above: Performed By: #### B MP #### [facility] [place] [facility] [address] [place] [address] [address] Katlyn Barahona EGFR-AF JAMAICAN >60 Normal >=60 [facility] Comment on above: Performed By: #### B MP #### [facility] [place] [facility] [address] [place] [address] [address] Katlyn Barahona EGFR-NON AF JAMAICAN 52 mL/min/1.73m2 Critically low >=60 [facility] Comment on above: Performed By: #### B MP #### [facility] [place] [facility] [address] [place] [address] [address] Katlyn Barahona Glucose [Mass/Vol] 173 mg/dL Critically high 74-106 [facility] Comment on above: Performed By: #### B MP #### [facility] [place] [facility] [address] [place] [address] [address] Katlyn Barahona Potassium [Moles/Vol] 4.2 mmol/L Normal 3.5-5.1 [facility] Comment on above: Performed By: #### B MP #### [facility] [place] [facility] [address] [place] [address] [address] Katlyn Barahona Sodium [Moles/Vol] 140 mmol/L Normal 136-145 [facility] Comment on above: Performed By: #### B MP #### [facility] [place] [facility] [address] [place] [address] [address] Katlyn Barahona Urea nitrogen [Mass/Vol] 20.0 mg/dL Critically high 7.0-18.0 [facility] Comment on above: Performed By: #### B MP #### [facility] [place] [facility] [address] [place] [address] [address] Katlyn Barahona Urea nitrogen/Creatinine [Mass ratio] 18.7 mg/mg Normal [facility] Comment on above: Performed By: #### B MP #### [facility] [place] [facility] [address] [place] [address] [address] Katlyn Barahona PAP ACOG PANEL 2: 30 to 65on 02-12-2022 . . Normal [facility] Comment on above: Result Comment: Perf ormed at: WB Performed By: #### T 7, CMP, LIPID, BNP, TSH #### [facility] [place] [facility] [address] [place] [address] [address] Katlyn Barahona Age Gdln ACOG Testing 30-65 [facility] Comment on above: Performed By: #### T 7, CMP, LIPID, BNP, TSH #### [facility] [place] [facility] [address] [place] [address] Dr. Katlyn Barahona DIAGNOSIS: Comment Normal [facility] Comment on above: Result Comment: UNSA TISFACTORY FOR EVALUATION. SPECIMEN REPROCESSED FOR INTERPRETATION USING GLACIAL ACETIC ACID (GAA). Performed at: WB Performed By: #### T 7, CMP, LIPID, BNP, TSH #### [facility] [place] [facility] [address] [place] [address] [address] Katlyn Barahona HPV Aptima Negative Normal Negative [facility] Comment on above: Result Comment: This nucleic acid amplification test detects fourteen high-risk HPV types (16,18,31,33,35,39,45,51,52,56,58,59,66,68) without differentiation. Performed at: =G Performed By: #### T 7, CMP, LIPID, BNP, TSH #### [facility] [place] [facility] [address] [place] [address] [address] Katlyn Barahona Methodology: Comment Normal [facility] Comment on above: Result Comment: This liquid based ThinPrep(R) pap test was screened with the use of an image guided system. Performed at: WB Performed By: #### T 7, CMP, LIPID, BNP, TSH #### [facility] [place] [facility] [address] [place] [address] [address] Katlyn Barahona Note: Comment Normal [facility] Comment on above: Result Comment: The [...] T 7, CMP, LIPID, BNP, TSH #### [facility] [place] [facility] [address] [place] [address] [address] Katlyn Barahona Performed by: Comment Normal [facility] Comment on above: Result Comment: Yuki Jang, Engraver (ASCP) Performed at: WB Performed By: #### T 7, CMP, LIPID, BNP, TSH #### [facility] [place] [facility] [address] [place] [address] [address] Katlyn Barahona QC reviewed by: Comment Normal [facility] Comment on above: Result Comment: Almaz Inman, Supervisory Engraver (ASCP) Performed at: WB Performed By: #### T 7, CMP, LIPID, BNP, TSH #### [facility] [place] [facility] [address] [place] [address] [address] Katlyn Barahona Recommendation: Comment Normal [facility] Comment on above: Result Comment: Sugg est follow up as clinically appropriate. Performed at: WB Performed By: #### T 7, CMP, LIPID, BNP, TSH #### [facility] [place] [facility] [address] [place] [address] [address] Kaltyn Barahona Specimen adequacy: Comment Normal [facility] Comment on above: Result Comment: Spec imen processed and examined but unsatisfactory for evaluation of epithelial abnormality because of insufficient cellularity. Areas of partially obscuring blood are present. Performed at: WB Performed By: #### T 7, CMP, LIPID, BNP, TSH #### [facility] [place] [facility] [address] [place] [address] [address] Katlyn Barahona XR DEXA BONE DENSITYon [...] by: RENETTA MCCRAY Date: 2022-02-11 18:42 Normal [facility] LARGE JOINT/BURSA INJECTION AND/OR ASPIRATION: R [...] was prepped in the usual sterile fashion. [facility] Radiology Study observation (narrative) [facility] C REACTIVE PROTEINon 022 CRP [Mass/Vol] 14.7 mg/L High 0 - 10.0 MG/L Interpretation and review of laboratory results Abnormal [facility] CBC, EDIF, PLATELETon 2021 ABSOLUTE BASOPHIL COUNT 0.0 10*3/uL 0.0 - 0.2 10*3/uL Basophils/100 WBC (Bld) 0.5 % 0.0 - 2.0 % Differential cell count method Nom (Bld) AUTO DIFF % Eosinophils (Bld) [#/Vol] 0.10 10*3/uL 0.0 - 0.7 10*3/uL Eosinophils/100 WBC (Bld) 1.9 % 0.0 - 11.0 % Erythrocyte distribution width (RBC) [Ratio] 13.2 % 11.5 - 14.5 % Hematocrit (Bld) [Volume fraction] 35.2 % Low 36.0 - 48.0 % Hemoglobin (Bld) [Mass/Vol] 11.9 g/dL Low Interpretation and review of laboratory results Abnormal Lymphocytes (Bld) [#/Vol] 1.10 10*3/uL Low 1.2 - 3.4 10*3/uL Lymphocytes/100 WBC (Bld) 14.8 % Low 20.0 - 55.0 % MCH (RBC) [Entitic mass] 30.3 pg 26.0 - 35.0 PG MCHC (RBC) [Mass/Vol] 33.9 g/dL [facility] MCV (RBC) [Entitic vol] 89.4 fL A [facility] Monocytes (Bld) [#/Vol] 0.6 10*3/uL 0.0 - 0.7 10*3/uL Monocytes/100 WBC (Bld) 7.6 % 0.0 - 10.0 % Neutrophils (Bld) [#/Vol] 5.7 10*3/uL 1.4 - 6.5 10*3/uL Neutrophils/100 WBC (Bld) 75.2 % High 37.0 - 75.0 % Platelet mean volume (Bld) [Entitic vol] 7.5 fL Platelets (Bld) [#/Vol] 257 10*3/uL 130. 0 - 400.0 10*3/uL RBC (Bld) [#/Vol] 3.94 10*6/uL Low 4.0 - 5.4 10*6/uL WBC (Bld) [#/Vol] 7.6 10*3/uL 3.6 - 11.0 10*3/uL [facility] SEDIMENTATION RATE, AUTOMATE Don 12-06-2021 ESR (Bld) [Velocity] 12 mm/h [facility] BNPon 11-13-2021 Natriuretic peptide B (Bld) [Mass/Vol] 17.0 pg/mL Normal <=900.0 [facility] Comment on above: Performed By: #### T 7, CMP, LIPID, BNP, TSH #### [facility] [place] [facility] [address] [place] [address] Dr. Katlyn Barahona CBC AUTO DIFFon 11-13-2021 BASO # 0.0 103/ul Normal 0.0-0.1 [facility] Comment on above: Performed By: #### T 7, CMP, LIPID, BNP, TSH #### [facility] [place] [facility] [address] [place] [address] Dr. Katlyn Barahona Basophils/100 WBC (Bld) 0.8 % Normal 0.2-2.0 [facility] Comment on above: Performed By: #### T 7, CMP, LIPID, BNP, TSH #### [facility] [place] [facility] [address] [place] [address] Dr. Katlyn Barahona EO # 0.1 103/ul Normal 0.0-0.7 [facility] Comment on above: Performed By: #### T 7, CMP, LIPID, BNP, TSH #### [facility] [place] [facility] [address] [place] [address] Dr. Katlyn Barahona Eosinophils/100 WBC (Bld) 2.6 % Normal 0.9-7.0 [facility] Comment on above: Performed By: #### T 7, CMP, LIPID, BNP, TSH #### [facility] [place] [facility] [address] [place] [address] Dr. Katlyn Barahona Erythrocyte distribution width (RBC) [Ratio] 12.6 % Normal 11.0-15.0 [facility] Comment on above: Performed By: #### T 7, CMP, LIPID, BNP, TSH #### [facility] [place] [facility] [address] [place] [address] [address] Katlyn Barahona Hematocrit (Bld) [Volume fraction] 38.7 % Normal 36.0-48.0 [facility] Comment on above: Performed By: #### T 7, CMP, LIPID, BNP, TSH #### [facility] [place] [facility] [address] [place] [address] Dr. Katlyn Barahona Hemoglobin (Bld) [Mass/Vol] 12.3 g/dL Normal 12.0-16.0 [facility] Comment on above: Performed By: #### T 7, CMP, LIPID, BNP, TSH #### [facility] [place] [facility] [address] [place] [address] Dr. Katlyn Barahona IG # 0.02 10e3/ul Normal 0.00-0.03 [facility] Comment on above: Performed By: #### T 7, CMP, LIPID, BNP, TSH #### [facility] [place] [facility] [address] [place] [address] Dr. Katlyn Barahona IG % 0.4 % Normal 0.0-0.5 [facility] Comment on above: Performed By: #### T 7, CMP, LIPID, BNP, TSH #### [facility] [place] [facility] [address] [place] [address] Dr. Katlyn Barahona LYMPH # 1.4 103/ul Normal 1.2-3.8 [facility] Comment on above: Performed By: #### T 7, CMP, LIPID, BNP, TSH #### [facility] [place] [facility] [address] [place] [address] Dr. Katlyn Barahona Lymphocytes/100 WBC (Bld) 28.0 % Normal 20.5-60.0 [facility] Comment on above: Performed By: #### T 7, CMP, LIPID, BNP, TSH #### [facility] [place] [facility] [address] [place] [address] Dr. Katlyn Barahona MANUAL DIFF REQ NO Normal [facility] Comment on above: Performed By: #### T 7, CMP, LIPID, BNP, TSH #### [facility] [place] [facility] [address] [place] [address] Dr. Katlyn Barahona MCH (RBC) [Entitic mass] 29.8 pg Normal 26.7-34.0 [facility] Comment on above: Performed By: #### T 7, CMP, LIPID, BNP, TSH #### [facility] [place] [facility] [address] [place] [address] Dr. Katlyn Barahona MCHC (RBC) [Mass/Vol] 31.8 g/dL Normal 29.9-35.2 [facility] Comment on above: Performed By: #### T 7, CMP, LIPID, BNP, TSH #### [facility] [address] [place] [address] Dr. Katlyn Barahona MCV (RBC) [Entitic vol] 93.7 fL Normal 81.0-99.0 [facility] Comment on above: Performed By: #### T 7, CMP, LIPID, BNP, TSH #### [facility] [address] [place] [address] Dr. Katlyn Barahona MONO # 0.4 103/ul Normal 0.3-0.8 [facility] Comment on above: Performed By: #### T 7, CMP, LIPID, BNP, TSH #### [facility] [address] [place] [address] Dr. Katlyn Barahona Monocytes/100 WBC (Bld) 8.9 % Normal 1.7-12.0 [facility] Comment on above: Performed By: #### T 7, CMP, LIPID, BNP, TSH #### [facility] [address] [place] [address] Dr. Katlyn Barahona NEUT # 3.0 103/ul Normal 1.4-6.5 [facility] Comment on above: Performed By: #### T 7, CMP, LIPID, BNP, TSH #### [facility] [address] [place] [address] Dr. Katlyn Barahona Neutrophils/100 WBC (Bld) 59.3 % Normal 43.0-75.0 [facility] Comment on above: Performed By: #### T 7, CMP, LIPID, BNP, TSH #### [facility] [address] [place] [address] Dr. Katlyn Barahona Platelet mean volume (Bld) [Entitic vol] 8.9 fL Critically low 9.5-13.5 [facility] Comment on above: Performed By: #### T 7, CMP, LIPID, BNP, TSH #### [facility] [address] [address] [address] Katlyn Barahona PLT 259 103/ul Normal 150-450 [facility] Comment on above: Performed By: #### T 7, CMP, LIPID, BNP, TSH #### [facility] [address] [address] [address] Katlyn Barahona RBC 4.13 106/ul Critically low 4.20-5.40 [facility] Comment on above: Performed By: #### T 7, CMP, LIPID, BNP, TSH #### [facility] [address] [address] [address] Katlyn Barahona WBC 5.0 103/ul Normal 4.0-11.0 [facility] Comment on above: Performed By: #### T 7, CMP, LIPID, BNP, TSH #### [facility] [address] [place] [address] Dr. Katlyn Barahona FREE THYROXINE INDEX T7on FTI 2.27 Normal 1.30-4.50 [facility] Comment on above: Performed By: #### T 7, CMP, LIPID, BNP, TSH #### [facility] [address] [place] [address] Dr. Katlyn Barahona T3U 36.0 % Normal 30.0-39.0 [facility] Comment on above: Performed By: #### T 7, CMP, LIPID, BNP, TSH #### [facility] [address] [place] [address] Dr. Katlyn Barahona T4 [Mass/Vol] 6.30 ug/dL Normal 4.80-13.90 [facility] Comment on above: Performed By: #### T 7, CMP, LIPID, BNP, TSH #### [facility] [address] [place] [address] Dr. Katlyn Barahona GLYCOHEMOGLOBIN A1Con 2021 ADA RECOMMENDATION SEE BELOW Normal [facility] Comment on above: Result Comment: ADA RECOMMENDED LIMIT 4.0 - 6.0 ADA THERAPEUTIC TARGET < 7.0 ACTION SUGGESTED > 7.0 Performed By: #### T 7, CMP, LIPID, BNP, TSH #### [facility] [address] [address] [address] Katlyn Barahona Glucose [Mass/Vol] 154 mg/dL Normal [facility] Comment on above: Performed By: #### T 7, CMP, LIPID, BNP, TSH #### [facility] [address] [address] [address] Katlyn Barahona HbA1c (Bld) [Mass fraction] 7.0 % Critically high 4.5-6.2 [facility] Comment on above: Performed By: #### T 7, CMP, LIPID, BNP, TSH #### [facility] [address] [place] [address] Dr. Katlyn Barahona IRONon 11-13-2021 Iron [Mass/Vol] 72.0 ug/dL Normal 50.0-170.0 [facility] Comment on above: Performed By: #### T 7, CMP, LIPID, BNP, TSH #### [facility] [address] [place] [address] Dr. Katlyn Barahona LIPID PROFILEon 11-13-2021 CHOL-HDL RATIO NORM SEE BELOW Normal [facility] Comment on above: Result Comment: 3.3 - 4.4 LOW RISK 4.4 - 7.1 AVERAGE RISK 7.1 - 11.0 MODERATE RISK >11.0 HIGH RISK Performed By: #### T 7, CMP, LIPID, BNP, TSH #### [facility] [address] [place] [address] Dr. Katlyn Barahona Cholesterol [Mass/Vol] 290 mg/dL Critically high <=200 [facility] Comment on above: Performed By: #### T 7, CMP, LIPID, BNP, TSH #### [facility] [address] [address] [address] Katlyn Barahona Cholesterol in HDL [Mass/Vol] 65 mg/dL Critically high 40-60 [facility] Comment on above: Performed By: #### T 7, CMP, LIPID, BNP, TSH #### [facility] [address] [address] [address] Katlyn Barahona Cholesterol in LDL [Mass/Vol] 183.4 mg/dL Normal [facility] Comment on above: Performed By: #### T 7, CMP, LIPID, BNP, TSH #### [facility] [address] [address] [address] Katlyn Barahona Cholesterol.total/Lary sterol in HDL [Mass ratio] 4.5 {ratio} Normal [facility] Comment on above: Performed By: #### T 7, CMP, LIPID, BNP, TSH #### [facility] [address] [address] [address] Katlyn Barahona HDL NORMAL > or = 60 mg/dl - LOW CARDIOVASCULAR RISK <40 mg/dl - HIGH CARDIOVASCULAR RISK Normal [facility] Comment on above: Performed By: #### T 7, CMP, LIPID, BNP, TSH #### [facility] [address] [address] [address] Katlyn Barahona LDL CALC NORMAL SEE BELOW Normal [facility] Comment on above: Result Comment: <100 mg/dl OPTIMAL 100 - 129 mg/dl NEAR OR ABOVE OPTIMAL 130 - 159 mg/dl BORDERLINE HIGH 160 - 189 mg/dl HIGH >190 mg/dl VERY HIGH Performed By: #### T 7, CMP, LIPID, BNP, TSH #### [facility] [address] [address] [address] Katlyn Barahona Triglyceride [Mass/Vol] 208 mg/dL Critically high <=150 [facility] Comment on above: Performed By: #### T 7, CMP, LIPID, BNP, TSH #### [facility] [address] [address] [address] Katlyn Barahona VLDL CALC 41.6 mg/dL Normal [facility] Comment on above: Performed By: #### T 7, CMP, LIPID, BNP, TSH #### [facility] [address] [address] [address] Katlyn Barahona PROF 14(COMP METB)on 022 Albumin [Mass/Vol] 3.6 g/dL Normal 3.4-5.0 [facility] Comment on above: Performed By: #### T 7, CMP, LIPID, BNP, TSH #### [facility] [address] [address] [address] Katlyn Barahona Albumin/Globulin [Mass ratio] 1.1 {ratio} Normal [facility] Comment on above: Performed By: #### T 7, CMP, LIPID, BNP, TSH #### [facility] [address] [address] [address] Katlyn Barahona ALP [Catalytic activity/Vol] 91 U/L Normal 46-116 [facility] Comment on above: Performed By: #### T 7, CMP, LIPID, BNP, TSH #### [facility] [address] [place] [address] Dr. Katlyn Barahona ALT [Catalytic activity/Vol] 17 U/L Normal 14-59 [facility] Comment on above: Performed By: #### T 7, CMP, LIPID, BNP, TSH #### [facility] [address] [place] [address] Dr. Katlyn Barahona Anion gap [Moles/Vol] 12.8 mmol/L Normal [facility] Comment on above: Performed By: #### T 7, CMP, LIPID, BNP, TSH #### [facility] [address] [place] [address] Dr. Katlyn Barahona AST [Catalytic activity/Vol] 10 U/L Critically low 15-37 [facility] Comment on above: Performed By: #### T 7, CMP, LIPID, BNP, TSH #### [facility] [address] [place] [address] Dr. Katlyn Barahona Bilirubin [Mass/Vol] 0.4 mg/dL Normal 0.2-1.0 [facility] Comment on above: Performed By: #### T 7, CMP, LIPID, BNP, TSH #### [facility] [address] [place] [address] Dr. Katlyn Barahona Calcium [Mass/Vol] 8.7 mg/dL Normal 8.5-10.1 [facility] Comment on above: Performed By: #### T 7, CMP, LIPID, BNP, TSH #### [facility] [address] [place] [address] Dr. Ktalyn Barahona Chloride [Moles/Vol] 103 mmol/L Normal 98-107 [facility] Comment on above: Performed By: #### T 7, CMP, LIPID, BNP, TSH #### [facility] [address] [place] [address] Dr. Katlyn Barahona CO2 [Moles/Vol] 26.4 mmol/L Normal 21.0-32.0 [facility] Comment on above: Performed By: #### T 7, CMP, LIPID, BNP, TSH #### [facility] [address] [place] [address] Dr. Katlyn Barahona Creatinine [Mass/Vol] 1.19 mg/dL Critically high 0.55-1.02 [facility] Comment on above: Performed By: #### T 7, CMP, LIPID, BNP, TSH #### [facility] [address] [place] [address] Dr. Katlyn Barahona EGFR-AF [place] 56 mL/min/1.73m2 Critically low >=60 [facility] Comment on above: Performed By: #### T 7, CMP, LIPID, BNP, TSH #### [facility] [address] [place] [address] Dr. Katlyn Barahona EGFR-NON AF [place] 46 mL/min/1.73m2 Critically low >=60 [facility] Comment on above: Performed By: #### T 7, CMP, LIPID, BNP, TSH #### [facility] [address] [place] [address] Dr. Katlyn Barahona Globulin (S) [Mass/Vol] 3.2 g/dL Normal [facility] Comment on above: Performed By: #### T 7, CMP, LIPID, BNP, TSH #### [facility] [address] [place] [address] Dr. Katlyn Barahona Glucose [Mass/Vol] 133 mg/dL Critically high 74-106 [facility] Comment on above: Performed By: #### T 7, CMP, LIPID, BNP, TSH #### [facility] [address] [place] [address] Dr. Katlyn Barahona Potassium [Moles/Vol] 4.2 mmol/L Normal 3.5-5.1 [facility] Comment on above: Performed By: #### T 7, CMP, LIPID, BNP, TSH #### [facility] [address] [address] [address] Katlyn Barahona Protein [Mass/Vol] 6.8 g/dL Normal 6.4-8.2 [facility] Comment on above: Performed By: #### T 7, CMP, LIPID, BNP, TSH #### [facility] [address] [place] [address] Dr. Katlyn Barahona Sodium [Moles/Vol] 138 mmol/L Normal 136-145 [facility] Comment on above: Performed By: #### T 7, CMP, LIPID, BNP, TSH #### [facility] [address] [place] [address] Dr. Katlyn Barahona Urea nitrogen [Mass/Vol] 17.0 mg/dL Normal 7.0-18.0 [facility] Comment on above: Performed By: #### T 7, CMP, LIPID, BNP, TSH #### [facility] [address] [place] [address] Dr. Katlyn Barahona Urea nitrogen/Creatinine [Mass ratio] 14.3 mg/mg Normal [facility] Comment on above: Performed By: #### T 7, CMP, LIPID, BNP, TSH #### [facility] [address] [place] [address] Dr. Katlyn Barahona TSHon 11-13-2021 TSH 1.384 uIU/mL Normal 0.358-3.740 [facility] Comment on above: Performed By: #### T 7, CMP, LIPID, BNP, TSH #### [facility] [address] [place] [address] Dr. Katlyn Barahona TSH RANGE SEE BELOW Normal [facility] Comment on above: Result Comment: <0.3 4 UIU/ml HYPERTHYROID 0.34-5.60 UIU/ml EUTHYROID >5.60 UIU/ml HYPOTHYROID Performed By: #### T 7, CMP, LIPID, BNP, TSH #### [facility] [address] [place] [address] Dr. Katlyn Barahona VITAMIN D 25 OHon 11-13-2021 VIT D 25-OH 23.2 ng/mL Normal [facility] Comment on above: Performed By: #### T 7, CMP, LIPID, BNP, TSH #### [facility] [address] [address] [address] Katlyn Barahona VIT D RANGES SEE BELOW Normal [facility] Comment on above: Result Comment: <20 ng/mL Vit D deficient 20 - <30 ng/mL Vit D insufficient 30 - 100 ng/mL Vit D sufficient >100 ng/mL Potential Toxicity Performed By: #### T 7, CMP, LIPID, BNP, TSH #### [facility] [address] [place] [address] Dr. Katlyn Barahona LARGE JOINT/BURSA INJECTION AND/OR [...] patient was prepped with alcohol and Chloraprep. [facility] Operative Reporton 1 Operative Report [id number] #1.00CD:127 Normal [facility] Reportson 04-15-2021 Lab Reports [id number] #1.00CD:127 [facility] Formson 04-11-2021 Forms [id number] #1.00CD:127 [facility] General Surgery Office/Clini c Noteon 04-10-2021 General Surgery Office/Clinic Note CD:[id number] 8oWB0cGyAowyHdJTrgUx 6fw8weYF91lg4jNnTaVy 8+UdaoCU3AIHgFMYZs qJ4fOXFZRxeJHpNvRU2b AwGVRr1VUTAfOAbPKGpf EQ3nMMD0edadaH5qGD7v JAUneTHgRo4qt4d3 ZvcdKj6uTu3IGl17vAEl yVFcIWALC9lspM1gXL9b xIEaQ5MhHGFcXz4CNXj4 dOnggW0ukfB2Fod2 mCQ8Lf87h3hluoFst4Ap AfY9AStdkGs4nZznNLht zI2uJrSpXGGWjK2ihFfi BV7eaX2mxqRqwIsr biI+IuuiUAWyWoa9aXQg HT93X2BvdNjsLkq8nCS4 BPUcaLFaEYKpnQp4EQSY LVVBLUNvbXBhdGli iIQeGYQaiiOotmO9PbaS APFxAaQeEbb5S5mvRGV+ Nugje2P9Vpw0YVo2ISM5 lPkcKGEay692GVRj bBklnDjzxVSmp22sIHVy kEBpWkNbk269IZZkzdS8 RWykpHhxRij4yQByrHDv q1osyFg9GsFaURMq FysUDWGwxMwxf4NsZxeY PPsma8dyiqVueLjfPVZ6 n2CmFYitSNJlUWG7RaKe IC8+CgkJPGNvbCB2 ISakL700QrBdpXAwc1aa oCq5GpC3VCZaZn7HOQov A81gM6FseLJ+Wud1uXOl ZHk+CgkJPHRyPgoJ RTr6yIUgs5J3cFG1YhYa xoJar1z0IEfqXDA1UzA2 JBV8zYHfjL4cuOolvlkn aP5kJnR+CgkJCTxk tGJvZ7mzo0L3OaQsa1Ic hNhdnnUfSWOpOfRpi8bg YyqiHCDobT6rNRI6XaIl TUKdsUHtMOQeTK2g urTezIEdGTVnNvTeH4Ri f59vr5RgGOGZQ4vHIsPk RDC9RS3uQoHlKF3iKqAd VgMkHMwvQVA4PPEv QHSrAG64JVXjMHYqRTGg WBK1GDDkLPUvy8I5iNE2 ZsLnPLMsdwo7SUSkyBqf PjxzcGFuIGNsYXNz WIWaRZJpG9Szr78siAPs dYO8Ls90t4MxhxJsqJjp NL0wSx7ssR14WKqndJB3 UIVcfAW1VARukTVz CMVgz6IdaJmuulybaB5s GQEnqZ7cFnT+W3hjAGRt V66cpPxseY91ML7ebXSr Vxezc5Jvdl7BZDbG VXEqbeWtzSQgus2hHAGt xNKht369WV59SlCmSQsl e120WS83zEadYQ1mKXLP O8PKJP6UVXSLCoAf AZxkGCBcjqUfY9I1eEmr LFMMI7S6UmW9GA6MHiWq EEGRQ0MqFwDcYw9NU5TQ NNuWVzV3LeFzINgl PSJfNWEzYmVlZDMtMGM2 Mt93DCF4WUd5LeGlRBUy XJSuENYcLsNnMi1QQTcA PZMdtiIppIKchn6d OFPxuJDvx653UY78cCFq bIDpQJXowO65QCBcVRXy AZR7M14xbILfcWU2yZO6 IlBBVENBUkVfTUVB EuAjHRE3AD64eKY0dLF8 AaN6ZUF2DLD7NZgyTAgo PSJfMzMyMmFkZTQtNzgy QP82XCR9FIukUJVe OGIxYmMyYzIzNzUyIiB4 rLxydgbfPC3rSXzlFW4z H4TpE3WnDP89JFXgz02g YcNpdEqyvtO9pTSp RCJ1lhxuQSMlY4WbKB5w aXY+OnjIRAauSHx9CwsW ZAo3S7Sjdn7HIgjMLWpk rKRlE0akj7N0KwZl k3AjkAnpvoAwXFOcPsHa o1hbNgjoKGChiJ0bBWO8 MgWaSVXyaUZvAFInNE2y dmFibGUiIGRkOnNl S4Mbf41xo6ZmIRDOJ5gI YgQiOLW2QE7vPmXkGH5v Z7MmDTTrMZUpQBqzKNNu OSilAi85KdjmYRWv FiN4O3O4CPyhGJSxm3I9 wRF8ZlKyYCIbfla7DTXc eDsiPjxzcGFuIGNsYXNz EPDpTUVsM7Flw00m qVGoeGU6Ka05d4FzgdRi gPeyLJ5ePy1yjB96ZAtv sGD4YAMopLK7QRXbfAPj LZHqs8TupXmqskcb eB5uMUGuiK5rFuE+SFBJ GVG5JKCdHY1ziZJiEfvr b1Rpqs2QJmxLHPtpnJTj L6dnb6J6VnPgOW9c X83rfZYtnGLoEXU9J74t nMIvqVE4hVU8SuBQUPVI NoYvANPURcUcZAX1hsXu HLLatbMrpSXbVP6q DMj8AUHVBRSlALE6IH07 QjRDLUFGRDItNkFEQkMy SrK5RYymSiCuKV8hW0Sb NzZlNjIxLTNmMjAt FHE9OI54O1B0UUWmDwY2 BpP5BlRzVXN+CgkJCTxk iDTxW3prq8Q9FrEoCI1o G03ljNWigYm4AF8p SFDkGU7zuwUleSMuCQJk YpX1gmZve5N4fY1in2A0 nEH8WyUhxN9ppStscLSj QBS1J81uvPVikIL3 bVY6PeJGVZRWXwWgMFYT XaNbQLZ4RO93iAD3sNQ6 MaDrfLJ4Zr69VzKdHLBd FY0xFtRdLDV1EwBu OUO3AH54Hjk7SCK0OMOb RJIbSNyeaW7lMaOvXQVY uU4xuIwfYT9lbV3gcqWc dGlvbiI+BG1djJD+ DskFNZc8PYw2KMAvKABk PSJkZGVtcmNvbnRlbnRp xBAqWALgiqQoh5NhOqfd IjYpDIowzW7hdS3q pKtmD2N8zIakNCO1x2Pp cmlnaHQiIGRkOmNvbnRl boN8eHEvKNYYSUWTUEJJ O00PAEViTXMuYuWi iOe5kWlmIUPmRKtoQKTr ZpD0QXQrXDUrBKZcNJ09 OtQfKEOyIHbiOzJ2S2F8 HJApSCXyBaU6eMgf uuioQS2dBUboIS1dB7Yw C7DoMG63SNJyo54cCdbr VPe1NtdNEKuGEGYbptYi tEKpkw7yNHStpZWy p040IT95gSBixWWuGAKs fX49WYCsMBPvORY1WnQi CjppIUEfbsjdyUpoSL3l iX9yGWBkM6m4KwHs DNfcf520KK56xBmeMB6g YVJOX5YQGM4AIPOQPjCa JLmplxRqlEyjFK1qOtOt NW5wDsI4RgSiIwM5 LRQ3QQQaFCY6Za1cTLOc NPUvQjBjVQA2WVT8UEXk fF4vjzF2RKM6FnI4doOs gQTSg3D3zQLslXB8 cO2oTx63T9Jxxd0CQptB QNqpaFGmJ1bcy4K0KiXf MZ6eN40arFQdsHc5NE4c QOWlVY9ehsHqwWEo YWQpEeV7hoDdz6L5tY9d x2E7nNN1OvNdbD6ukIyr mAUiXBT6T14ilQKwfYO5 qZL6HzEXOXCWEhQb LGIHGoHlHUQ0YN52xAC5 kPK2MlSydEZ7Jj0nEgWh YiorKT6uLpYpWIE1HkHv FMVhDV1lKGFfKFH3 G2X6YEPtPQusmV4eMeRb ACQSjW7kaQruRN0xeN4j bnRhdGlvbiI+NX4ybUS+ QomDIOk2YXi0OCQr YXNzPSJkZGVtcmNvbnRl ftIcyAXeRVRihiNgc7Xr KvwsWbYgRWxrzX2woX1j lPyhF7M3qXmiIEP7 i5VuibptyLLyOBOhWoVc vfDmqrD5cYYgTOKBYONL ZZMDG63XMUSeKLMcSiZi eLr1bOabWPZcASqw JKYmX7FpCRFsSTlcVGxq Mz20APB8COY6MwWyOKh2 QGGsACR9ZBk0MnO0eYch xpjrHU8vKGdwHM1r C2LnV3ZqNS47RQGvo82y UoqtQBr8UxgWEFjHNVIs ppUvcBVmqt4vLQPwtUSv y741EF00vXEboNSz BVFioA14MOWkVUBeJOE6 YnRuZmxvYXRpbmdzdHls FB4umQ2eDZEtC8g0EbVj LIrri744VU53eMky WL8bLWMZU0ETCL1VYUIJ GqKiELgzvjJmdQpoXU1r CvYbGF6aPeQcKuCrNVDt EPDhJXQrZNzkAR7g WZTqXGH7L0XfKFG9Hdjd COPorX7xiwN3IQE2HhF8 yfUneLFRe3Z3sYUvnHU7 aY9kCa68K3Tbjm1I WmxZXLosaMDuE6yuy5D0 WhSgWE7mD24naUQwdHa9 AL7dFVCkML0iaqVtzLAt FMXcJtI8mmWwi3Z6 aL3rh4M4jYC9DtFqpL9t oFcppCHpXDR2Y36kgCBd aGT8sTZ7NaKFRMBKEaDm POCRDpRpUUY3CT65 fYP3vGE0QcUuqSG6Ab2h FZX7HRT3JO01XnI5JQL6 YWMcUvTeMC9pTaCyEqOu SGQhYaSiXKlucP8s ZiHkIAUPhE3evSemKP7y jQ4rskKxaCmyudV+PC9k aXY+AaoOISe7RTm9FIUn YXNzPSJkZGVtcmNv bnRlbnRpdGVtIGRkcmVt h0YoUjoqNrGzBGsxcR5c bX5zfNjmF5Q3vZrpLQG3 d9IcyocvvIBeKGWv FsZhrkCfbvD4kROaKBFW EOPDIKCHR82BAUKcJLGj NnPjgCi6gFiwENLqYXpw PTObZjY1QPc0WkWu WESsPs83OEZqPZp9AAWc Jzw5DQNhNJLqZcC6XvY4 xKygcptuDX4zFCamLE4s B9AjO3YuSK45MRAz m55cOuazYNw8CblYACbP WXKqzfAwmVGkvg9mSZOh cXZbh973RS75hFPlgUYd LEJmiW84HZZmNOVp ABW6BwOyKxosZWEtrtgb fDsqNV9zdM0uQNYaO1r2 XzQnUVngb178CE85cAfn VK9iGOUBX1FTDB2H RUFTIiBkZDplbnRpdHlp ZS1uDzTpVG7zHxbzIRcr NBEqALG2BUObTMIjPG88 ZDIzLWQyNjdkODg0 WTF2CvGtoQ7mkbC6RIB7 TwP7pdGjdEZZn3L6oOFi pMH7nB8nWx37K0Bdoo5A RjmROFcjrKPpS5ds u5F6YdJvQC0wG48dbUUo wUt4CT0dVEZhUW5xbqQo bZNyMTPmUuH8spCxg1X0 qD2bw3V9uNL8XvOq c (more content not included)... Normal [facility] Comment on above: Result Comment: Elec tronically Signed By: MIRIAM BRONSON, Tan Major\ivan\Date and Time Signed: 04/10/21 15:28 EDT XR knee RT 2Von 04-09-2021 XR knee RT 2V [facility] [employer] Other XR knee RT 2V [facility] [employer] Other XR knee RT [address]V [address] [place] [address] [employer] Other [place]R [place] 2[place] [address] [facility] [employer] Other XR knee RT 2V XRay Report [employer] Other XR knee RT 2V Signed [employer] Other XR knee RT 2V Patient: Katt Rahamn MR#: [id number] [employer] Other XR knee RT 2V : 1960 Acct:[id number] [employer] Other XR knee RT 2V Age/Sex: 60 / F ADM Date: 04/09/21 [employer] Other XR knee RT 2V Loc: [facility] Room: Type: [facility] [employer] Other XR knee RT 2V Attending Dr: Milagros Hall SALES ENGINEER-C [employer] Other XR knee RT 2V Ordering Provider: Yehuda Camara MD [employer] Other XR knee RT 2V Date of Service: 04/09/21 [employer] Other XR knee RT 2V XR/XR knee RT 2V: History of total right knee replacement [employer] Other XR knee RT 2V Copies to: Yehuda Camara MD [employer] Other XR knee RT 2V 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 No fracture or dislocation. Small suprapatellar [employer] Other XR knee RT 2V effusion. No soft tissue abnormality. [employer] Other XR knee RT 2V XR/XR knee RT 2V [employer] Other XR knee RT 2V IMPRESSION:Uncomplic ated RIGHT knee arthroplasty. [employer] Other XR knee RT 2V Impression dictated by: Edilberto Castillo M.D.04/09/2021 11:51 AM [employer] Other XR knee RT 2V Dictation Location: [place] [address] [employer] Other XR knee RT 2V Transcribed By: PWS 04/09/21 115 [employer] Other XR knee RT 2V Dictated By: Edilberto Castillo DO 04/09/21 1149 [employer] Other XR knee RT 2V Signed By: [employer] Other XR knee RT 2V 04/09/21 1151 [employer] [facility] [employer] Other Operative Reporton Operative Report [id number] #1.00CD:127 [facility] Consent for Procedure/Surger yon 01-25-2021 Consent for Procedure/Surgery [id number] #1.00CD:127 [facility] January 11, 2021 Rafa Verdin, [address] [address] Re: KATT RAHMAN Date of : 1960 Thank you for your referral of Katt Rahman who was seen on consultation on January 10, 2021, for possible gastric ulcer. An EGD is planned for further evaluation. I have enclosed my consultation note for your review. I will be happy to follow Katt. Sincerely, Tan Hutchison MD General Surgery [facility] Ambulatory Clinical Summaryo n 01-10-2021 Ambulatory Clinical Summary {[id number]}CD:[id number] [facility] RAD - CT Reporton 01-09-20[address] RAD - CT Report [id number] #1.00CD:127 [facility] RAD - Ultrasound Reporton RAD - Ultrasound Report [id number] #1.00CD:127 [facility] Physician Referralon 021 Physician Referral [id number] #1.00CD:127 [facility] Physician Referral [id number] #1.00CD:127 [facility] Consent for COVID Vaccineon 10-28-2020 SARS-CoV-2 (COVID-19) RNA VIVIANA+probe Ql (Unsp spec) [id number] 8#1.00CD:127 [facility] Coding Summary.on 09-26-2020 Coding Summary. CODING DATE: 09/26/2020 FINAL [facility] STATUS: PAYOR: [facility] [place] [employer] DESCRIPTION 1492 [employer] - Level [...] Renetta Maurice Date Saved: 09/26/2020 02:57 pm [facility] Consent for COVID Vaccineon 09-26-2020 SARS-CoV-2 (COVID-19) RNA VIVIANA+probe Ql (Unsp spec) [id number] 8#1.00CD:127 [facility] Consent for Treatmenton 09-04 Consent for Treatment [id number] 8#1.00CD:127 [facility] Vital Signs Date Time Vital Sign Value Performing Clinician Facility 05-17-2024 14:31-0500 Body height 162.56 cm Rafa Verdin MD Work Phone: [facility] 05-17-2024 14:31-0500 Body mass index (BMI) [Ratio] 33.5 kg/m2 Rafa Verdin MD Work Phone: [facility] 05-17-2024 14:31-0500 Body weight 88.45 kg Rafa Verdin MD Work Phone: [facility] 03-04-2023 11:26-0400 Body height 165.1 cm Cynthia Ran INFUSION RN-[employer]ALLOON DIPPER Work Phone: 03-04-2023 11:26-0400 Body mass index (BMI) [Ratio] 32.95 kg/m2 Cynthia Ran INFUSION RN-BALLOON DIPPER Work Phone: [employer] [facility] 03-04-2023 11:26-0400 Body weight 89.81 kg Cynthia Ran INFUSION RN-BALLOON DIPPER Work Phone: [facility] 06-25-2022 11:34-0500 Body height 165.1 cm Kee Serrato MD Work Phone: [facility] 06-25-2022 11:34-0500 Body mass index (BMI) [Ratio] 33.08 kg/m2 Kee Serrato MD Work Phone: [facility] 06-25-2022 11:34-0500 Body temperature 97.2 [degF] Kee Serrato MD Work Phone: [facility] 06-25-2022 11:34-0500 Body weight 90.17 kg Kee Serrato MD Work Phone: [facility] 04-16-2022 13:38-0400 Body height 165.1 cm Cynthia Ran INFUSION RN-BALLOON DIPPER Work Phone: 04-16-2022 13:38-0400 Body mass index (BMI) [Ratio] 33.12 kg/m2 Cynthia Durant APRN-BALLOON DIPPER Work Phone: 04-16-2022 13:38-0400 Body temperature 97.11 [degF] Cynthia Durant APRN-BALLOON DIPPER Work Phone: 04-16-2022 13:38-0400 Body weight 90.27 kg Cynthia Durant APRN-BALLOON DIPPER Work Phone: 03-26-2022 13:25-0400 Body height 165.1 cm Cynthia Durant APRN-BALLOON DIPPER Work Phone: 03-26-2022 13:25-0400 Body mass index (BMI) [Ratio] 33.12 kg/m2 Cynthia Durant APRN-BALLOON DIPPER Work Phone: 03-26-2022 13:25-0400 Body temperature 97.5 [degF] Cynthia Durant APRN-BALLOON DIPPER Work Phone: 03-26-2022 13:25-0400 Body weight 90.27 kg Cynthia Durant APRN-BALLOON DIPPER Work Phone: 01-16-2022 13:12-0400 Body height 165.1 cm Kee Serrato MD Work Phone: 01-16-2022 13:12-0400 Body mass index (BMI) [Ratio] 33.25 kg/m2 Kee Serrato MD Work Phone: 01-16-2022 13:12-0400 Body temperature 97.59 [degF] Kee Serrato MD Work Phone: 01-16-2022 13:12-0400 Body weight 90.63 kg Kee Serrato MD Work Phone: 12-06-2021 12:52-0400 Body height 165.1 cm Rafael Riehm DO Work Phone: 3(038)809-374737 [place] [address] 12-06-2021 12:52-0400 Body mass index (BMI) [Ratio] 34.35 kg/m2 Rafael Riehm DO Work Phone: 8(873)330-961737 [place] [address] 12-06-2021 12:52-0400 Body temperature 97.9 [degF] Rafael Riehm DO Work Phone: 9(366)316-259737 [place] [address] 12-06-2021 12:52-0400 Body weight 93.62 kg Rafael Riehm DO Work Phone: 1(262)135-989837 [place] [address] 10-25-2021 11:17-0400 Body height 165.1 cm Rafael Riehm DO Work Phone: 8(584)731-683037 [place] [address] 10-25-2021 11:17-0400 Body mass index (BMI) [Ratio] 33.38 kg/m2 Rafael Riehm DO Work Phone: 8(849)822-071137 [place] [address] 10-25-2021 11:17-0400 Body temperature 97.7 [degF] Rafael Riehm DO Work Phone: 1(372)047-155137 [place] [address] 10-25-2021 11:17-0400 Body weight 90.99 kg Rafael Riehm DO Work Phone: 3(271)876-739237 [place] [address] 06-05-2021 16:15-0500 Body height 162.56 cm Jose Marle II Other [facility] Other 06-05-2021 16:15-0500 Body mass index (BMI) [Ratio] 32.78 kg/m2 Jose [place] II Other [facility] Other 06-05-2021 16:15-0500 Body weight 86.64 kg Jose [place] II Other [facility] Other 04-09-2021 09:30-0400 Body height 162.56 cm Yehuda Camara Other [facility] Other 04-09-2021 09:30-0400 Body mass index (BMI) [Ratio] 32.61 kg/m2 Yehuda Camara Other [facility] Other 04-09-2021 09:30-0400 Body weight 86.18 kg Yehuda Camara Other [facility] Other Encounters Encounter Date Encounter Type Care Provider Facility Start: 07-18-2024 End: 07-18-2024 ambulatory Rafa Verdin MD Work Phone: [facility] Work Phone: Start: 07-18-2024 End: 07-18-2024 Patient encounter procedure Rafa Verdin MD Work Phone: [facility] Work Phone: Start: 07-14-2024 End: 07-14-2024 ambulatory Rafa Verdin MD Work Phone: [facility] Work Phone: Start: 07-14-2024 End: 07-14-2024 Patient encounter procedure Rafa Verdin MD Work Phone: [facility] Work Phone: Start: 07-07-2024 End: 07-07-2024 ambulatory Jose Sorensen II Facility:[facility] Start: 07-07-2024 End: 07-07-2024 Patient encounter procedure Rafa Verdin MD Work Phone: [facility] Work Phone: Start: 05-30-2024 Non-patient / Non-visit Coco Verdin MD Work Phone: [facility] Work Phone: Start: 05-30-2024 End: 05-30-2024 Patient encounter procedure Rafa Verdin MD Work Phone: [facility] Work Phone: Start: 05-23-2024 End: 05-23-2024 Phys/qhp telephone evaluation 5-10 min Abiodun Barahonazio DO Work Phone: [facility] Comment on above: Osteopenia, unspecif ied location Start: 05-18-2024 End: 05-18-2024 ambulatory Rafa Verdin MD Work Phone: [facility] Work Phone: Start: 05-18-2024 End: 05-18-2024 Patient encounter procedure Rafa Verdin MD Work Phone: [facility] [place] [facility] Work Phone: Start: 05-18-2024 End: 05-18-2024 Patient encounter procedure Rafa Verdin MD Work Phone: [facility] Start: 05-18-2024 End: 05-18-2024 ambulatory Rafa Verdin MD Work Phone: [facility] Work Phone: Start: 02-15-2024 End: 02-15-2024 ambulatory ABIODUN DANIELLA Not Available Start: 03-04-2023 ambulatory [facility] Start: 03-04-2023 End: 03-04-2023 Office outpatient visit 15 minutes Cynthia Durant APRN-BLAYNE Work Phone: [facility] Comment on above: Hx of total knee art hroplasty, right (Primary Dx) Start: 03-04-2023 End: 03-04-2023 Subsequent hospital visit by physician Cynthia GUTIERREZ Work Phone: [facility] Start: 11-01-2022 End: 11-01-2022 ambulatory BRAINNA ROMERO Facility: Start: 06-25-2022 ambulatory [facility] Start: 06-25-2022 End: 06-25-2022 Office outpatient visit 15 minutes Kee Serrato MD Work Phone: [facility] Comment on above: Hx of total knee art hroplasty, right (Primary Dx) Start: 06-25-2022 End: 06-25-2022 Subsequent hospital visit by physician Kee Serrato MD Work Phone: [facility] Start: 05-23-2022 End: 05-23-2022 ambulatory MD Rafa Verdin Work Phone: [facility] Work Phone: Start: 05-23-2022 End: 05-23-2022 Discharged Recurring MD Rafa Verdin Work Phone: [facility]-Physical Therapy [place] Start: 04-24-2022 End: 04-25-[address] ABIODUN BREWER . Facility:[facility] Start: 04-16-2022 ambulatory [facility] Start: 04-16-2022 End: 04-16-2022 Postop follow up visit related to original px Cynthia Durant INFUSION RN-BALLOON DIPPER Work Phone: [facility] Comment on above: Hx of total knee art hroplasty, right (Primary Dx) Start: 03-26-2022 ambulatory [facility] Start: 03-26-2022 End: 03-26-2022 Postop follow up visit related to original px Cynthia Durant INFUSION RN-BALLOON DIPPER Work Phone: [facility] Comment on above: Hx of total knee art hroplasty, right (Primary Dx) Start: 03-26-2022 End: 03-26-2022 Subsequent hospital visit by physician Cynthia VARGASBALLOON DIPPER Work Phone: [facility] Start: 03-11-2022 End: 03-11-2022 ambulatory KEE SERRATO Facility:[facility] Start: 02-11-2022 End: 02-12-[address] ABIODUN BREWER . Facility:[facility] Start: 02-06-2022 End: 02-06-[address] ABIODUN BREWER . Facility: Start: 01-16-2022 End: 01-16-2022 Office outpatient visit 40 minutes Kee Serrato MD Work Phone: [facility] Comment on above: Right knee pain, uns pecified chronicity (Primary Dx) Start: 01-16-2022 End: 01-16-2022 Office outpatient visit 25 minutes Rafael L Mary DO Work Phone: [facility] Comment on above: Right hip pain (Prim rosana Dx); Primary localized osteoarthritis of right hip Start: 12-06-2021 End: 12-06-2021 Office outpatient visit 25 minutes Rafael Baileyedison DO Work Phone: [facility] Comment on above: Right hip pain (Prim rosana Dx); 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 Facili ty: Start: 11-13-2021 End: 11-14-[address] RAFA VERDIN . Facility: Start: 10-25-2021 End: 10-25-2021 Office outpatient visit 25 minutes Rafael Reese Leoabbimichelle DO Work Phone: [facility] Comment on above: Primary localized os teoarthritis of right hip (Primary Dx) Start: 10-10-2021 End: 10-10-2021 Office outpatient new 30 minutes Kee Serrato MD Work Phone: [facility] Comment on above: Primary localized os teoarthritis of right hip (Primary Dx); Pain in prosthetic joint, initial encounter Start: 08-13-2021 End: 08-13-2021 ambulatory Jose Sorensen II Other [facility] Other Start: 08-13-2021 Telephone encounter Jose Sorensen II [facility] Start: 08-12-2021 End: 08-12-2021 ambulatory Jose Sorensen II Other [facility] Other Start: 08-12-2021 Telephone encounter Jose Jaiden II [facility] Start: 07-30-2021 End: 07-30-2021 ambulatory Jose Jaiden II Other [facility] Other Start: 07-30-2021 Telephone encounter Jose Jaiden II [facility] Start: 06-24-2021 End: 06-24-2021 ambulatory Jose Jaiden II Other [facility] Other Start: 06-24-2021 Telephone encounter Jose Jaiden II [facility] Start: 06-19-2021 (Procedure) Curtis Stephenson [facility] Start: 06-19-2021 End: 06-19-2021 ambulatory Rick Stephenson Other [facility] Other Start: 06-05-2021 End: 06-05-2021 ambulatory Jose Jaiden II Other [facility] Other Start: 06-05-2021 Office outpatient ne w 45 minutes Jose Jaiden II [facility] Start: 05-07-2021 End: 05-07-2021 ambulatory Yehuda Camara Other [facility] Other Start: 05-07-2021 Office outpatient vi sit 15 minutes Yehuda Camara [facility] [place] [facility] Start: 04-09-2021 Office outpatient vi sit 15 minutes Yehuda Camara [facility] Start: 09-07-2019 End: 09-07-2019 Patient encounter procedure Rafa Hoy -[facility] Start: 05-02-2019 End: 05-03-2019 Admission to day surgery [facility] -[facility] [place] Start: 12-02-2018 End: 12-02-2018 Discharged Recurring Rafa Hoy -Physical Therapy B one [place] Procedures Date Procedure Procedure Detail Performing Clinician Start: 05-18-2024 Plain X-ray of right hip Rafa Verdin MD Work Phone: Start: 05-18-2024 X-ray of right knee, three views Rafa Verdin MD Work Phone: Start: 05-13-2024 Mammography Abiodun girard DO Work Phone: Start: 02-15-2024 Microscopic observat ion [Identifier] in Cervix by Cyto stain Abiodun Brewer DO Work Phone: Start: 01-16-2022 Arthrocentesis aspir &/inj major jt/bursa w/us Rafael L Riehm DO Work Phone: Start: 10-25-2021 Arthrocentesis aspir &/inj major jt/bursa w/us Rafael L Riehm DO Work Phone: Start: 09-07-2019 X-ray of left knee Fernando Verdin History of operative procedure on knee Jose Marnaet CUETO Other Plan of Treatment Date Care Activity Detail Author Start: 02-14-2029 Screening for malign ant neoplasm of cervix [facility] Start: 05-13-2025 Screening for malign ant neoplasm of breast Mammogram [facility] Start: 02-23-2025 End: 02-23-2025 Patient encounter procedure 02/23/2025 11:00 AM EDT Office Visit [facility] [address] [place] [address] Abiodun Brewer, DO [address] [place] [address] [facility] Start: 05-18-2024 Plain X-ray of right hip XR hi p RT min 2V(w/wo pelvis)* [facility] Start: 05-18-2024 XR Hip - right 2 Views [facility] Start: 05-18-2024 X-ray of right knee, three views XR knee RT 3V - NOT FOR ER USE [facility] Start: 05-18-2024 XR Knee - right 3 Views [facility] Start: 03-06-2024 Influenza vaccination Influenza Vacc ine (#1) [facility] Start: 12-10-2023 Pneumococcal Vaccine : 65+ Years (1 of 1 - PCV) Pneumococcal Vaccine: 65+ Years (1 of 1 - PCV) [facility] Start: 03-06-2023 Influenza vaccination INFLUENZA VACC INE (#1) Start: 03-04-2023 End: 03-04-2023 Patient encounter procedure 03/04/2023 Office Visit Orthopaedics Cynthia Durant, INFUSION RN-BALLOON DIPPER [address] [place] [address] [facility] Start: 06-25-2022 End: 06-25-2022 Patient encounter procedure 06/25/2022 Office Visit Orthopaedics Kee Serrato MD [address] [place] [address], [place] [address] [facility] Start: 04-24-2022 End: 04-24-2022 Patient encounter procedure 04/24/2022 Office Visit Orthopaedics Rafael Hernandez DO [address] [place] [address] [facility] Start: 04-16-2022 End: 04-16-2022 Patient encounter procedure 04/16/2022 Office Visit Orthopaedics Cynthia Durant, INFUSION RN-BALLOON DIPPER [address] [place] [address] [facility] Start: 03-06-2022 Influenza vaccination INFLUENZA VACC INE (#1) Start: 03-04-2022 End: 03-04-2022 Evaluation and management of inpatient [facility] Comment on above: 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, initial encounter REVISION ARTHROPLAST Y KNEE - right Start: 03-04-2022 End: 03-04-2022 REVISION ARTHROPLASTY KNEE REVISION ARTHROPLASTY KNEE 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 Start: 02-13-2022 End: 02-13-2022 ambulatory 02/13/2022 Pre-Operative Nurse Assessment Internal Medicine [facility] Pre Admission Start: 02-06-2022 End: 02-06-2022 ambulatory 02/06/2022 Pre-Operative Nurse Assessment Internal Medicine [facility] Pre Admission Start: 01-17-2022 End: 01-17-2022 Patient encounter procedure 01/17/2022 Office Visit Orthopaedics Rafael Hernandez, DO [address] [place] [address] [facility] Start: 12-06-2021 End: 12-06-2022 NM Bone 3 Phase Views NUC 3 PHASE LIMITED BONE SCAN Imaging Routine 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, subsequent encounter Expected: 12/06/2021, Expires: 12/06/2022 Comment on above: Expected: 12/06/2021 , Expires: 12/06/2022 Start: 12-06-2021 End: 12-06-2021 Patient encounter procedure 12/06/2021 Office Visit Orthopaedics Dario Hernandezaleida Reese, DO [address] [place] [address] [facility] Start: 10-30-2021 COVID-19 VACCINE (4 - Booster for Pfizer series) COVID-19 VACCINE (4 - Booster for Pfizer series) Start: 08-26-2021 COVID-19 VACCINE (4 - Booster for Pfizer series) COVID-19 VACCINE (4 - Booster for Pfizer series) Start: 08-26-2021 COVID-19 VACCINE (4 - Pfizer series) COVID-19 VACCINE (4 - Pfizer series) Start: 2008 Zoster vaccine hzv l ruddy for subcutaneous use ZOSTER (SHINGLES) VACCINE (1 of 2) Start: 12-10-2003 Colonoscopy COLORECTAL CAN CER SCREENING DISCUSSION Start: 12-10-2003 Screening for malign ant neoplasm of colon COLORECTAL CANCER SCREENING DISCUSSION Start: 1998 Fasting lipid profile LIPID SCREENIN G Start: 1998 Lipid panel LIPID SCREENING [facility] Start: 1998 Screening for malign ant neoplasm of breast MAMMOGRAM SCREENING DISCUSSION Start: 1998 Screening mammography MAMMOGRA M SCREENING DISCUSSION Start: 12-10-1979 Screening for malign ant neoplasm of cervix CERVICAL CANCER SCREENING DISCUSSION Start: 1977 Third diphtheria, tetanus and acellular pertussis (DTaP) vaccination TDAP (ADULT) Start: 1976 Tetanus vaccination [facility] Start: 1973 HIV screening HIV SCREENING DISCUSSION Start: 1960 Hepatitis B vaccination HEP B VACCINE (1 of 3 - 3-dose series) Start: 1958 Hepatitis C antibody , confirmatory test HEPATITIS C VIRUS SCREENING Start: 1958 Hepatitis C screening HEPATITI S C VIRUS SCREENING Start: 1958 Screening for malign ant neoplasm of colon [facility] Start: 1958 Tetanus vaccination [facility] Fibrin D-dimer [Presence] in Platelet poor plasma by Latex agglutination [facility] Radiography for bone length studies XR BONE LENGTH STUDY Imaging Routine Pain in prosthetic joint, initial encounter 10/10/2021 12:54 PM EDT [employer] Radiography for bone length studies XR BONE LENGTH STUDY Imaging Routine Hx of total knee arthroplasty, right 06/25/2022 10:52 AM [employer] Work Phone: XR Knee - left 3 Views XR KNEE L EFT 3 VIEWS Imaging Routine Pain in prosthetic joint, initial encounter 10/10/2021 12:54 PM EDT [employer] XR Knee - right 3 Views XR KNEE RIGHT 3 VIEWS Imaging Routine Pain in prosthetic joint, initial encounter 10/10/2021 12:54 PM EDT [employer] XR Knee - right 3 Views XR KNEE RIGHT 3 VIEWS Imaging Routine Hx of total knee arthroplasty, right 03/26/2022 1:03 PM EDT [employer] XR Knee - right 3 Views XR KNEE RIGHT 3 VIEWS Imaging Routine Hx of total knee arthroplasty, right 04/16/2022 1:26 PM EDT [employer] XR Knee - right 3 Views XR KNEE RIGHT 3 VIEWS Imaging Routine Hx of total knee arthroplasty, right 06/25/2022 10:52 AM [employer] XR Knee - right 3 Views XR KNEE RIGHT 3 VIEWS Imaging Routine Hx of total knee arthroplasty, right 03/04/2023 10:58 AM EDT [facility] Immunizations Immunization Date Immunization Notes Care Provider Jun rivera 04-24-2022 influenza virus vaccine, unspecified formulation Cynthia Durant INFUSION RN-BALLOON DIPPER Work Phone: 05-24-2021 influenza virus vaccine, unspecified formulation Rafael Hernandez DO Work Phone: 12-16-2018 Kenalog -40 mg Yehuda Camara Other [employer] Other 09-22-2018 Kenalog -40 mg Yehuda Camara Other [employer] Other 05-17-2018 Euflexxa Yehuda Camara Other [employer] Other 05-10-2018 Euflexxa Yehuda Camara Other [employer] Other 05-03-2018 Euflexxa Yehuda Camara Other [employer] Other 04-13-2018 Kenalog -40 mg Yehuda Camara Other [employer] Other 11-03-2017 Kenalog -40 mg Yeuhda Camara Other [employer] Other 02-24-2017 Kenalog -40 mg Yehuda Camara Other [employer] Other 12-11-2016 Kenalog -40 mg Yehuda Camara Other [employer] Other Payers Date Payer Category Payer Self-pay [id number] 2023 Medicare MEDICARE [id number] 2023 Medicare [id number] 2022 [facility] Mem er [id number] 2022 Unknown [id number] 2002 Unknown [id number]. [id number]. [id number] 1959 Unknown [id number] 1959 Unknown [id number] 1959 Unknown [id number] 1958 Unknown [id number] 2.840.1.827456.3.579.2. 59 1958 Unknown [id number] 2.16840.1.785434.3.579.2. 593 1958 Unknown [id number] 2.840.1.109569.3.579.2. 593 1958 Unknown [id number] 2.16.840.1.849523.3.579.2. 593 1958 Unknown [id number] 2.16.840.1.131116.3.579.2. 593 1958 Unknown [id number] 2.16.840.1.099455.3.579.2. 593 1958 Unknown [id number] 2.16.840.1.305702.3.579.2. 593 1958 Unknown [id number] 2.16.840.1.171852.3.579.2. 983 1958 Unknown [id number] 2.16.840.1.338332.3.579.2. 983 1958 Unknown [id number] 2.16.840.1.197841.3.579.2. 983 1958 Unknown [id number] 2.16.840.1.443261.3.579.2. 983 1958 Unknown [id number] 2.16.840.1.770107.3.579.2. 983 1958 Unknown [id number] 2.16.840.1.886408.3.579.2. 983 1958 Unknown [id number] 2.16.840.1.785439.3.579.2. 983 1958 Unknown [id number] 2.16.840.1.399078.3.579.2. 983 1958 Unknown [id number] 2.16.840.1.548345.3.579.2. 1259 Unknown [id number] 2.16.840.1.194970.3.579.2. 531 Unknown [id number] 2.16.840.1.909668.3.579.2. 531 Social History Date Type Detail Facility Start: 05-02-2019 End: 05-02-2019 Tobacco smoking status WYIS Never smoked tobacco (finding) [facility] Start: 1960 Sex Assigned At Female F [facility] Start: 10-10-2021 Tobacco use and exposure Smokeless tobacco non-user Start: 10-10-2021 End: 03-04-2023 Alcohol intake Ex-drinker (finding) Start: 1960 Sex Assigned At Not on file A [place] Start: 03-04-2023 End: 06-02-2023 Sex Assigned At [facility] Dating [employer] Other Start: 02-22-2022 End: 03-04-2022 Exposure to SARS-CoV-2 (event) Not sure Start: 03-04-2023 End: 06-02-2023 History of Social function Start: 05-18-2024 End: 07-18-2024 Sex Female (finding) [facility] Start: 02-15-2024 Alcoholic beverage intake Current drinker of alcohol (finding) [facility] Start: 02-06-2023 Alcohol Comment 1-2 drinks les s than monthly in the past year, Caffeine intake: 1-2 cups per day [facility] Medical Equipment Procedure Code Equipment Code Equipment [...] knee, total, minimally invasive Orthopaedic cement, non-medicated ([id number] FDA Start: 05-02-2019 Arthroplasty, knee, total, minimally [...] total, minimally invasive Uncoated knee femur prosthesis ()[id number] FDA Start: 05-02-2019 Arthroplasty, knee, total, minimally invasive Tibial insert ()[id number] FDA Start: 05-02-2019 Arthroplasty, knee, total, minimally invasive Polyethylene patella prosthesis ()[id number] FDA Start: 05-02-2019 Arthroplasty, knee, total, minimally invasive Uncoated knee tibia prosthesis, metallic ()[id number] FDA Start: 05-02-2019 Arthroplasty, knee, total, minimally [...] PERSONA LEFT SIZE C FDA Start: 09-27-2018 Hazel martinez Insert [id number] Start: 03-04-2022 Goals Date Patient Goal Desired Activity /State Clinical Notes 09-03-2018 to 05-23-2024 Angela Pak LPN - 05/23/2024 8:00 AM EST Note Date & Type Note Facility 05-23-2024 History of Presen t illness Narrative Reason for Appointment: Patient ID: Katt Rahman is a 63 y.o. female who presents for follow up DEXA SCAN Patient presents today via telephone call for a telehealth appointment. Patients Phone #: [phone] (mobile) Current Medications: has a current medication list which includes the following prescription(s): calcium carbonate-vit d-min, glimepiride, januvia, losartan, meloxicam, metformin, and simvastatin. Medical History: Active Ambulatory Problems Diagnosis Date Noted No Active Ambulatory Problems Resolved Ambulatory Problems Diagnosis Date Noted No Resolved Ambulatory Problems Past Medical History: Diagnosis Date Cervical disc disease Diabetes (CMS/HCC) DUB (dysfunctional uterine bleeding) Encounter for gynecological examination (general) (routine) without abnormal findings Fibrocystic breast disease [place] History of kidney stones History of medical problems History of vertebral fracture Menopause Obesity (BMI 30-39.9) Pain in joint involving ankle and foot Pure hypercholesterolemia (CMS/HCC) Recurrent sinusitis Shingles Unequal leg length Family History Problem Relation Name Age of Onset Hypertension Mother Diabetes Mother Heart disease Mother Diabetes Father Hypertension Father Cancer Sibling Social History Tobacco Use Smoking status: Never Smokeless tobacco: Not on file Substance Use Topics Alcohol use: Yes Comment: 1-2 drinks less than monthly in the past year, Caffeine intake: 1-2 cups per day Drug use: Never Past Surgical History: Procedure Laterality Date FL GUIDED ASPIRATION OR INJECTION LARGE JOINT BILATERAL Bilateral 10/25/2021 [place] GUIDED ASPIRATION OR INJECTION LARGE JOINT BILATERAL [place] GUIDED ASPIRATION OR INJECTION LARGE JOINT BILATERAL Bilateral 01/16/2022 FL GUIDED ASPIRATION OR INJECTION LARGE JOINT BILATERAL OVARIAN CYST SURGERY 1997 TOTAL KNEE ARTHROPLASTY Bilateral Allergies Allergen Reactions Pioglitazone Itching, Rash and Unknown Sulfa Antibiotics Hives and Unknown Diclofenac GI intolerance, Nausea Only and Rash Tramadol Itching, Rash and Unknown Lisinopril Cough and Unknown Sulfamethoxazole-Trimethoprim Rash Vitals: Estimated body mass index is 32.45 kg/m as calculated from the following: Height as of 02/15/24: 5' 5 . Weight as of 02/15/24: 195 lb. BP: No LMP recorded. Patient is postmenopausal. Assessment/Plan Provider called patient @ 1:36pm to discuss DEXA Scan results. Patient voiced that she is taking oral Calcium and Vitamin D supplements. Discussed weight-bearing activity/exercises with patient if she does not desire to take any other oral medications (Fosamax) Nursing will obtain previous scan and provider will compare results. If stable then patient will continue current regimen and add weight-bearing activity. If scan has worsened then provider will discuss Fosamax with patient. Patient aware no news is good news. Today's telehealth visit consisted of spending 5 minutes talking to patient on the phone. Documented by Angela Pak LPN on behalf of: Abiodun Brewer DO documented in this encounter [facility] 05-18-2024 Evaluation note Diagnosis Onset Date Resolution Primary osteoarthritis of right hip acute May 18, 2 024 10:25am Right hip pain acute May 062023 10:25am [facility] Work Phone: 1(992) 970-903211-13-2024 Evaluation note* Diagnosis Onset Date Resolution Status Admit Date Primary osteoarthritis of ri ght hip acute May 18, 2 024 10:25am Right hip pain acute May 062023 10:25am Greater trochanteric bursiti s of right hip acute July 07 8:55am History of revision of total replacement of right knee joint acute July 07, 2024 8:55am Primary osteoarthritis of ri ght hip acute July 07 8:55am [facility] Work Phone: 1(415) 211-125411-13-2024 Evaluation note* Diagnosis Onset Date Resolution Status Admit Date Primary osteoarthritis of ri ght hip acute May 18, 2 024 10:25am Right hip pain acute May 062023 10:25am Greater trochanteric bursiti s of right hip acute July 07 8:55am History of revision of total replacement of right knee joint acute July 07, 2024 8:55am Primary osteoarthritis of ri ght hip acute July 07 8:55am Painful total knee replaceme nt, right acute July 14 9:37am Chronic pain acute July 10:47am Painful total knee replaceme nt, right acute July 18 10:47am Right knee pain acute July 062024 10:47am [facility] Work Phone: 1(116) 711-298308-30-2023 History of Present illness Narrative* Bel Rothman - 03/04/2023 11:00 AM EDT Ortho Nurse - Established Patient Intake Room#: 4 Date: 03/04/2023 11:27 AM Patient: Katt Rahman MR#: [id number] : 1960 Age: 62 y.o. 1yr R TKA Pt stated she is doing better than what is was, but is having back issues and her hip is bothering her. Pt has pain and stiffness at times if sitting to long 4/10 on the pain scale. Referring Physician: Self, Self Insurance: Payor: [employer] EXCHANGE / Plan: [facility]EN[facility]DA[facility] / Product Type: *No Product type* [...] daily. Take with food. (Patient not taking: Reportedon 06/25/2022) 30 tablet 0 meloxicam 7.5 MG [...] by Nasal route once for 1 dose. Hegins into the nose as directed. Call 911. If no response in 2 minutes use a new nasal spray in other nostril. Repeat until help arrives. 1Each [address] omepraz[address] capsule [...] 1 tablet by mouth As directed. follow packagedirections (Patient not taking: Reported on 06/25/2022), Disp: 21 tablet, Rfl: 0 naloxone 4 MG/0.1ML, 1 spray by Nasal route once for 1 dose. Hegins into the nose as directed. Call 911. If no response in 2 minutes use a new nasal spray in other nostril. Repeat until help arrives.,Disp: 1 Each, Rfl: 0 omeprazole 20 MG [...] [pioglitazone], sulfa antibiotics, diclofenac, tramadol, and lisinopril. * Cynthia Durant APRN-BLAYNE - 03/04/2023 11:00 AM EDT HPI: Patient is here today for evaluation [...] throughout the arc of motion. The contralateral extremityhas full motion, normal stability, no tenderness. Both [...] have reviewed the findings of the clinical manager sales support and agree with their assessment. Ortho Nurse - Established Patient Intake Room#: 4 Date: 03/04/2023 11:27 AM Patient: Katt Rahman MR#: [id number] : 1960 Age: 62 y.o. 1yr R TKA Pt stated she is doing better than what is was, but is having back issues and her hip is bothering her. Pt has pain and stiffness at times if sitting to long 4/10 on the pain scale. Referring Physician: Self, Self Insurance: Payor: JESSENIA EXCHANGE / Plan: [facility] CHILDREN'S[employer] [facility] / Product Type: *No Product type* [...] daily. Take with food. (Patient not taking: Reportedon 06/25/2022) 30 tablet 0 meloxicam 7.5 MG [...] by Nasal route once for 1 dose. Hegins into the nose as directed. Call 911. If no response in 2 minutes use a new nasal spray in other nostril. Repeat until help arrives. 1Each 0 omeprazole [address] capsule [...] 1 tablet by mouth As directed. follow packagedirections (Patient not taking: Reported on 06/25/2022), Disp: 21 tablet, Rfl: 0 naloxone 4 MG/0.1ML, 1 spray by Nasal route once for 1 dose. Hegins into the nose as directed. Call 911. If no response in 2 minutes use a new nasal spray in other nostril. Repeat until help arrives.,Disp: 1 Each, Rfl: 0 omeprazole 20 MG [...] diclofenac, tramadol, and lisinopril. documented in this [facility]12-21-2022 History of Present illness Narrative* Sandra Rosario LPN - 06/25/2022 11:10 AM EST Ortho Nurse - Established Patient Intake Room#: 3--4 month post-op visit of Right Knee revision (03-05-22). Her pain is a 3 today. She has continued to do home exercise. She still has pain when going up and down stairs. Date: 06/25/2022 11:38 AM Patient: Katt Rahman MR#: [id number] : 1960 Age: 61 y.o. Referring Physician: [...] DVPRS (Defense and Veterans Pain Rating Scale) (Adult- Cognitively Intact) Pain Location: knee, right Select Pain Scale: DVPRS (Defense and Veterans Pain Rating Scale) (Adult- Cognitively Intact) Recent Labs Lab Results Component Value [...] daily. Take with food. (Patient not taking: Reportedon 06/25/2022) 30 tablet 0 meloxicam 7.5 MG tablet Take 1 tablet by mouth daily. (Patient not taking: Reported on 06/25/2022) 30 tablet 1 methylPREDNIsolone 4 MG Tab Therapy Pack tablet Take 1 tablet by mouth As directed. follow package directions (Patient not taking: Reported on 06/25/2022) 21 tablet 0 naloxone 4 MG/0.1ML 1 spray by Nasal route once for 1 dose. Hegins into the nose as directed. Call 911. If no response in 2 minutes use a new nasal spray in other nostril. Repeat until help arrives. 1Each 0 omeprazole [address] capsule [...] [pioglitazone], sulfa antibiotics, diclofenac, tramadol, and lisinopril. * Kee Serrato MD - 06/25/2022 11:10 AM EST HPI: Patient is here today for evaluation of their operative knee. She is status post right total knee revision arthroplasty. She is about 4 months out from surgery and reports that she is doing welland is pleased with the outcome of the [...] a stable examination to varus and valgus stresswith normal balance throughout the arc of motion. [...] She understands she is at the 40% tomas of total recovery. We also discussed the [...] have reviewed the findings of the clinical manager sales support and agree with their assessment. Ortho Nurse - Established Patient Intake Room#: 3--4 month post-op visit of Right Knee revision (03-05-22). Her pain is a 3 today. She has continued to do home exercise. She still has pain when going up and down stairs. Date: 06/25/2022 11:38 AM Patient: Katt Rahman MR#: [id number] : 1960 Age: 61 y.o. Referring Physician: [...] DVPRS (Defense and Veterans Pain Rating Scale) (Adult- Cognitively Intact) Pain Location: knee, right Select Pain Scale: DVPRS (Defense and Veterans Pain Rating Scale) (Adult- Cognitively Intact) Recent Labs Lab Results Component Value [...] daily. Take with food. (Patient not taking: Reportedon 06/25/2022) 30 tablet 0 meloxicam 7.5 MG tablet Take 1 tablet by mouth daily. (Patient not taking: Reported on 06/25/2022) 30 tablet 1 methylPREDNIsolone 4 MG Tab Therapy Pack tablet Take 1 tablet by mouth As directed. follow package directions (Patient not taking: Reported on 06/25/2022) 21 tablet 0 naloxone 4 MG/0.1ML 1 spray by Nasal route once for 1 dose. Hegins into the nose as directed. Call 911. If no response in 2 minutes use a new nasal spray in other nostril. Repeat until help arrives. 1Each 0 omeprazole [address] capsule [...] diclofenac, tramadol, and lisinopril. documented in this encounter10-12-2022 History of Present illness Narrative* Bel Rothman - 04/16/2022 1:40 PM EDT Ortho Nurse - Established Patient Intake Room#: 4 Date: 04/16/2022 1:39 PM Patient: Katt Rahman MR#: [id number] : 1960 Age: 61 y.o. R TKA [...] by Nasal route once for 1 dose. Hegins into the nose as directed. Call 911. If no response in 2 minutes use a new nasal spray in other nostril. Repeat until help arrives. 1Each 0 oxyCODONE 5 MG tablet Take one [...] 1 tablet by mouth As directed. follow packagedirections, Disp: 21 tablet, Rfl: 0 omeprazole 20 [...] by mouth at bedtime., Disp: 30 tablet, Rfl:0 naloxone 4 MG/0.1ML, 1 spray by Nasal route once for 1 dose. Hegins into the nose as directed. Call 911. If no response in 2 minutes use a new nasal spray in other nostril. Repeat until help arrives.,Disp: 1 Each, Rfl: 0 oxyCODONE 5 MG tablet, Take one to two tabs every 4-6 hours as needed for severe pain. Wean as tolerated, Disp: 20 tablet, Rfl: 0 Allergies: She is allergic to actos [pioglitazone], sulfa antibiotics, diclofenac, tramadol, and lisinopril. * Cynthia Durant APRN-BALLOON DIPPER - 04/16/2022 1:40 PM EDT SUBJECTIVE: Katt is an established patient of [email or web address]. Here today for followup. She is now [...] any questions or concerns in the meantime. (DOC:[id number]) I have reviewed the findings of the clinical manager sales support and agree with their assessment. Cynthia Durant APRN-BLAYNE Ortho Nurse - Established Patient Intake Room#: 4 Date: 04/16/2022 1:39 PM Patient: Katt Rahman MR#: [id number] : 1960 Age: 61 y.o. R TKA [...] by Nasal route once for 1 dose. Hegins into the nose as directed. Call 911. If no response in 2 minutes use a new nasal spray in other nostril. Repeat until help arrives. 1Each 0 oxyCODONE 5 MG tablet Take one [...] 1 tablet by mouth As directed. follow packagedirections, Disp: 21 tablet, Rfl: 0 omeprazole 20 [...] by mouth at bedtime., Disp: 30 tablet, Rfl:0 naloxone 4 MG/0.1ML, 1 spray by Nasal route once for 1 dose. Hegins into the nose as directed. Call 911. If no response in 2 minutes use a new nasal spray in other nostril. Repeat until help arrives.,Disp: 1 Each, Rfl: 0 oxyCODONE 5 MG tablet, Take one to two tabs every 4-6 hours as needed for severe pain. Wean as tolerated, Disp: 20 tablet, Rfl: 0 Allergies: She is allergic to actos [pioglitazone], sulfa antibiotics, diclofenac, tramadol, and lisinopril. documented in this [facility]09-21-2022 History of Present illness Narrative* Saba Garcia LPN - 03/26/2022 1:00 PM EDT Ortho Nurse - Established Patient Intake Room#: 5 Date: 03/26/2022 1:26 PM Patient: Katt Rahamn MR#: [id number] : 1960 Age: 61 y.o. 3 wks [...] by Nasal route once for 1 dose. Hegins into the nose as directed. Call 911. If no response in 2 minutes use a new nasal spray in other nostril. Repeat until help arrives. 1Each 0 omeprazole [address] capsule [...] by Nasal route once for 1 dose. Hegins into the nose as directed. Call 911. If no response in 2 minutes use a new nasal spray in other nostril. Repeat until help arrives.,Disp: 1 Each, Rfl: 0 omeprazole 20 MG [...] by mouth at bedtime., Disp: 30 tablet, Rfl:0 Allergies: She is allergic to actos [pioglitazone], sulfa antibiotics, diclofenac, tramadol, and lisinopril. * Cynthia Durant APRN-BLAYNE - 03/26/2022 1:00 PM EDT HPI: Katt Rahman is 3 weeks s/p right TKA revision. She is happy with her recovery to date and could not be happier with the outcomes of the operation. She is participating in PT in the outpatient setting,using asa for DVT prophylaxis along with compression [...] and non tender bilaterally with negative Homans s ign. Distal neurovascular exam is intact. ROM is [...] understanding. All pertinent portions of the clinical manager sales support documentation was reviewed and agree. MATT Matos I have reviewed the findings of the clinical manager sales support and agree with their assessment. MATT Matos Ortho Nurse - Established Patient Intake Room#: 5 Date: 03/26/2022 1:26 PM Patient: Katt Rahman MR#: [id number] : 1960 Age: 61 y.o. 3 wks [...] by Nasal route once for 1 dose. Hegins into the nose as directed. Call 911. If no response in 2 minutes use a new nasal spray in other nostril. Repeat until help arrives. 1Each 0 omeprazole [address] capsule [...] by Nasal route once for 1 dose. Hegins into the nose as directed. Call 911. If no response in 2 minutes use a new nasal spray in other nostril. Repeat until help arrives.,Disp: 1 Each, Rfl: 0 omeprazole 20 MG [...] by mouth at bedtime., Disp: 30 tablet, Rfl:0 Allergies: She is allergic to actos [pioglitazone], sulfa antibiotics, diclofenac, tramadol, and lisinopril. documented in this encounter07-14-2022 History of Present illness Narrative* Saba Garcia LPN - 01/16/2022 1:00 PM EDT Ortho Nurse - Established Patient Intake Room#: 1 Date: 01/16/2022 1:15 PM Patient: Katt Rahman MR#: [id number] : 1960 Age: 61 y.o. Hx of Bilat tka by Dr Camara in 2018. Bilat knee pain R>L R knee pain and had a bone scan by tom at [facility] in [place] showing possible loosening. She states it's a [...] [pioglitazone], sulfa antibiotics, diclofenac, tramadol, and lisinopril. * Kee Serrato MD - 01/16/2022 1:00 PM EDT HPI: Patient is here today to be [...] a bone scan which was done at [facility] in [place] which showed possible loosening of the left knee but she is asymptomatic in the left knee. She states her right knee feels unpredictable, uses a brace and has failed physical therapy sessions. The brace does provide extra support when wearing but would like to not wear it. She ishere today for repeat evaluation. Her pain is a 4/10 upon exam today. PHYSICAL EXAM: This is an alert, oriented, and age-appropriate female. She is in no distress. Pleasant and cooperative. EXTREMITIES: The upper extremities have no gross deformities. Normal stability.Skin Intact. 5/5 motor. Intact sensation. Normal neurovascular [...] findings. We re-discussed her instability of the rightknee felt on exam today. 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 We then discussed conservative vrs surgical interventions along with the pros and cons of each method. 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 We have discussed in great detail [...] but are not limited to: bleeding, infection, neurovascularinjury including foot drop or paralysis, dislocation, component [...] like to proceed with surgical planning for revisionright total knee replacement. Today, we will initiate the pre-surgical process including nasal MRSAscreening, scheduling an appointment for [facility] and the potential surgical date, and reviewing [...] Tramadol Itching Lisinopril Cough documented in this [facility]07-14-2022 History of Present illness Narrative* Dejuan Willard - 01/16/2022 11:00 AM EDTAssociated Order(s): LARGE JOINT/BURSA INJECTION AND/OR ASPIRATION: R [...] this note may have been created with [employer] or other software which leads to grammatical and typographical errors which are not apprenticeship training representative of the intent with my spoken words. * Rafael Hernandez, - 01/16/2022 11:00 AM EDT Chief Complaint Patient presents with Right Hip - Pain, Follow-up Pain Radiation To: Some groin pain from the hip Pain Duration: 6 months Pain Frequency: intermittent, frequent Pain Quality: aching, dull, other (see comments) (Stiffness) Factors That Aggravate Pain: activity (Sit to stand, stairs, and at night) Factors That Relieve Pain: rest, medications, over the counter (OTC) (tylenol, knee brace) Originally referred by Rojelio for hip pain Patient presents in follow-up [...] a h/o b/l TKA in 2019 ([place], [place]). She did see Dr. Serrato at my [...] this note may have been created with [employer] or other software which leads to grammatical and typographical errors which are not apprenticeship training representative of the intent with my spoken words. Clinical certified first assistant/AT/INNA was acting as a scribe today for this note. I have performed all essentialcomponents of the history, and physical exam. I have confirmed the diagnosis and developed a plan of care at this visit. I have reviewed the note following the visit and have made edits as appropriate to my evaluation and plan of care. Rafael Hernandez DO documented in this encounter06-03-2022 History of Present illness Narrative* Michelle Funes - 12/06/2021 1:00 PM EDT Chief Complaint Patient presents with Right Hip [...] TKA in [address] Camara at [facility]. IMPRESSION/PLAN: Pertinent medical office records and [...] this note may have been created with [employer] or other software which leads to grammatical and typographical errors which are not apprenticeship training representative of the intent with my spoken words. * Rafael Hernandez DO - 12/06/2021 1:00 PM EDT Chief Complaint Patient presents with Right Hip [...] hip pain. Worsening of symptoms lately towards theright knee as well as the low back. History of bilateral TKA in [address] Camara at [facility]. IMPRESSION/PLAN: Pertinent medical office records and [...] to be done close to her home [place]. Follow-up in 6 weeks. Visit Vitals Temp 97.9 F (36.6 C) (Temporal) Ht 1.651 m (5' 5 ) Wt 93.6 kg (206 lb 6.4 oz) BMI 34.35 kg/m *Portions of this note may have been created with [employer] or other software which leads to grammatical and typographical errors which are not apprenticeship training representative of the intent with my spoken words. Clinical certified first assistant/AT/MA was acting as a scribe today for this note. I have performed all essentialcomponents of the history, and physical exam. I have confirmed the diagnosis and developed a plan of care at this visit. I have reviewed the note following the visit and have made edits as appropriate to my evaluation and plan of care. Rafael Hernandez DO documented in this [facility]04-22-2022 History of Present illness Narrative* Chanda Garth - 10/25/2021 11:30 AM EDTAssociated Order(s): LARGE JOINT/BURSA INJECTION AND/OR ASPIRATION: R [...] this note may have been created with [employer] or other software which leads to grammatical and typographical errors which are not apprenticeship training representative of the intent with my spoken words. * Rafael Reese Leoedison, DO - 10/25/2021 11:30 AM EDT Chief Complaint Patient presents with Right Hip [...] TKA in [address] Camara at [facility]. Pt describes that she got B/L [...] this note may have been created with [employer] or other software which leads to grammatical and typographical errors which are not apprenticeship training representative of the intent with my spoken words. Clinical certified first assistant/AT/MA was acting as a scribe today for this note. I have performed all essentialcomponents of the history, and physical exam. I have confirmed the diagnosis and developed a plan of care at this visit. I have reviewed the note following the visit and have made edits as appropriate to my evaluation and plan of care. Rafael Hernandez DO documented in this [facility]04-07-2022 History of Present illness Narrative* Sandra Rosario LPN - 10/10/2021 1:00 PM EDT Ortho Nurse - Patient Intake Room#: 2---Visit today for bilateral knee pain. She had bilateral TKA. Her right was done 05-02-2019 and left 09-27-2018. Dr. Camara from [place]. She has had pain in her knees [...] 10/10/2021 1:17 PM Patient: Katt Rahman MR#: [id number] : 1960 Age: 60 y.o. Referring Physician: [...] DVPRS (Defense and Veterans Pain Rating Scale) (Adult- Cognitively Intact) Pain Location: knee, left, knee, right Select Pain Scale: DVPRS (Defense and Veterans Pain Rating Scale) (Adult- Cognitively Intact) Recent Labs No results found for: [...] [x]cane, []bracing Are you followed by a governor assembler hydraulic? [] [x] Name: Are you followed by [...] Prednisone Use Does pt have dentures? no * Kee Serrato MD - 10/10/2021 1:00 PM EDT HPI: Patient is here today to be [...] lower extremities have no gross deformities. Normal stability.Skin Intact. 5/5 motor. Intact sensation. Normal neurovascular [...] reviewed. She has cemented bilateral posterior stablized totalknee arthroplasty in reasonable position and alignment with [...] the hip in or out a contributory source.I recommend a intraarticular right hip injection with [...] DVPRS (Defense and Veterans Pain Rating Scale) (Adult- Cognitively Intact) Pain Location: knee, left, knee, right Select Pain Scale: DVPRS (Defense and Veterans Pain Rating Scale) (Adult- Cognitively Intact) Recent Labs No results found for: [...] Tramadol Itching Lisinopril Cough documented in this encounter12-01-2021 Evaluation note* Encounter Date Diagnosis Assessment Notes Treatment Notes Treatment Clinical Notes Jun, History of total right knee replacement (ICD-10 - Z96.651) Jun, History of left knee replacement (ICD-10 - Z96.652) Jun, Primary osteoarthritis of both hips (ICD-10 - M16.0) Based on location of pain and exam findings we will proceed with a intra articular bilateral hip injection. Risks and benefits of procedure explained to patient; patient verbalizes understanding. Jun, Other 1. I had a long [...] corticosteroid injection. Unable to recommend any oral anti-inflammatories secondary to her ulcer history. I did [...] diagnostic purposes, possibly just a lidocaine injection. [facility] Other 11-02-2021 Evaluation note* Encounter Date Diagnosis [...] total left knee replacement (ICD-10 - Z96.652) [facility] Other 10-05-2021 Evaluation note* Encounter Date Diagnosis [...] total left knee replacement (ICD-10 - Z96.652) [email or web address] Other 07-08-2021 NoteChief Complaint referral for EGD [...] and bloating 2 weeks ago, admitted to [facility]; ct scan of abdominal with evidence [...] see# 1 3. 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 ? Any problems you or family [...] tells you to take them. ? Taking wnep-bpz-lkkyduu medicines, vitamins, herbs, and supplements. General instructions [...] your health care provider. Document Released: 06/19/2001 [employer] (more content not included)...[facility] History general Narrative - Reported* Type Description Date Medical History diabetes Medical History high cholesterol Medical History ulcers Surgical History ovarian cyst removal Surgical History left TKA 09/2018 Surgical History RTKA 04/2019 Hospitalization History see above [facility] Other Evaluation note* Diagnosis Primary localized osteoarthritis of right hip- Primary Pain in prosthetic joint, initial encounter documented in this encounter [employer] [employer] note* Diagnosis Primary localized osteoarthritis of right hip- Primary documented in this encounter [employer] [employer] note* Diagnosis Right hip pain- Primary Pain in joint, pelvic region and thigh 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, subsequent encounter documented in this encounter [facility] noteNo InformationNort vozero Other Evaluation note* Diagnosis Right hip pain- Primary Pain in joint, pelvic region and thigh Primary localized osteoarthritis of right hip documented in this encounter [employer] note* Diagnosis Right knee pain, unspecified chronicity- Primary 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, initial encounter documented in this encounter Evaluation note* Diagnosis Hx of total knee arthroplasty, right- [facility] Diagnosis Hx of total knee arthroplasty, right- Primary documented in this encounter [facility]No assessment [facility]Tr[facility] Work Phone: Evaluation note* Diagnosis Hx of total knee arthroplasty, right- Primary documented in this encounter [facility] note* Diagnosis Onset Date Resolution Status Admit Date Right hip pain acute May 062023 10:25am [facility] Work Phone: Evaluation note* Diagnosis Osteopenia, unspecified location documented in this encounter [facility] (narrative)* Consultation (Routine) - New Request Specialty Diagnoses / Procedures Referred By Elsy segal Referred To Contact [facility] Sports Diagnoses Primary localized osteoarthritis of right hip Kee Serrato MD [address] [place] [id number] Rafael Hernandez DO [address] [place] [address] Referral ID Status Reason Start Date Expiration Date V isits Requested Visits Authorized [id number] New Request 10/10/2021 11/04/2022 1 1 * Diagnostic X-Ray (Routine) - Pending Review Specialty Diagnoses / Procedures Referred By Elsy segal Referred To Contact Diagnoses Pain in prosthetic joint, initial encounter Procedures XR KNEE RIGHT 3 VIEWS Kee Serrato MD [address] [place] [address] Referral ID Status Reason Start Date Expiration Date V isits Requested Visits Authorized [id number] Pending Review 10/10/2021 11/04/2022 1 1 * Diagnostic X-Ray (Routine) - Pending Review Specialty Diagnoses / Procedures Referred By Elsy segal Referred To Contact Diagnoses Pain in prosthetic joint, initial encounter Procedures XR KNEE LEFT 3 VIEWS Kee Serrato MD [address] [place] [address] Referral ID Status Reason Start Date Expiration Date V isits Requested Visits Authorized [id number] Pending Review 10/10/2021 11/04/2022 1 1 * Diagnostic X-Ray (Routine) - Pending Review Specialty Diagnoses / Procedures Referred By Contac t Referred To Contact Diagnoses Pain in prosthetic joint, initial encounter Procedures XR BONE LENGTH STUDY Kee Serrato MD [address] [place] [address] Referral ID Status Reason Start Date Expiration Date V isits Requested Visits Authorized [id number] Pending Review 10/10/2021 11/04/2022 1 1 Advance Directives Advance Directive Response Recorded Date/ Time Advance Directives No June 10:00am Latest Code Status on File Code Status Date Activated Date Inactivated Comments Full Code 03/04/2022 3:39 PM Latest Code Status on File Code Status Date Activated Date Inactivated Comments Full Code 03/04/2022 3:39 PM Chief Complaint and Reason for Visit Chief Complaint M17.11 Chief Complaint Right Knee Revision Chief Complaint Admit Date M25.551 - Pain in right hip May 8:59am OP SP RT HIP PAIN May 18, 2024 10:25am Reason for Visit Admit Date Right hip pain May 18, 2024 10:25am Reason for Visit Admit Date Primary osteoarthritis of right hip Novsusan mber 2023 10:25am Right hip pain May 18, 2024 10:25am Chief Complaint Admit Date M25.551 - Pain in right hip May 8:59am OP SP RT HIP PAIN May 18, 2024 10:25am *JA[facility]EN PT* RIGHT HIP JOINT INJ/DS Nov 2023 1:22pm 6-8 WEEKS July 07, 2024 8: 55am Chief Complaint Admit Date M25.551 - Pain in right hip May 8:59am OP SP RT HIP PAIN May 18, 2024 10:25am *JAIDEN PT* RIGHT HIP JOINT INJ/DS May 1:22pm 6-8 WEEKS July 07, 2024 8: 55am Z96.651 July 07, 2024 9: 34am Reason for Visit Admit Date [facility] of [facility] 10:25am Right hip pain May 18, 2024 10:25am Greater trochanteric bursitis of right h ip July 07, 2024 8:55am History of revision of total replacement of right knee joint July 07, 2024 8:55am Primary osteoarthritis of right hip Romeo 2024 8:55am Chief Complaint Admit Date M25.551 - Pain in right hip May 8:59am OP SP RT HIP PAIN May 18, 2024 10:25am *JAIDEN PT* RIGHT HIP JOINT INJ/DS May 1:22pm 6-8 WEEKS July 07, 2024 8: 55am Z96.65July 07, 2024 9: 34am OP SP RTKA PAIN July 14, 2024 9: 37am Chief Complaint Admit Date M25.551 - Pain in right hip May 8:59am OP SP RT HIP PAIN May 18, 2024 10:25am *JAIDEN PT* RIGHT HIP JOINT INJ/DS May 1:22pm 6-8 WEEKS July 07, 2024 8: 55am Z96.65July 07, 2024 9: 34am OP SP RTKA PAIN July 14, 2024 9: 37am CONSULT DR SORENSEN RT KNEE PAIN July 18, 2024 10:47am Reason for Visit Admit Date Primary osteoarthritis of right hip [facility] 2023 10:25am Right hip pain May 18, 2024 10:25am Greater trochanteric bursitis of right h ip July 07, 2024 8:55am History of revision of total replacement of right knee joint July 07, 2024 8:55am Primary osteoarthritis of right hip Romeo 2024 8:55am Painful total knee replacement, right [facility] 2024 9:37am Chronic pain July 18, 2024 1 0:47am Painful total knee replacement, right Ja nuary 2024 10:47am Right knee pain July 18, 2024 1 0:47am Assessments No Assessments Information Available Family History Relationship Condition Age at Onset Recorded Date/T sallie father Family history of co ronary artery bypass surgery Unknown Diabetes mellitus Unknown Arthritis Unknown Not Specified Macular degeneration Unknown Presence of cardiac pacemaker Unknown family member Arthritis Unknown Relationship Condition Age at Onset Recorded Date/T sallie father Family history of co ronary artery bypass surgery Unknown Diabetes mellitus Unknown Arthritis Unknown mother Macular degeneration Unknown Presence of cardiac pacemaker Unknown family member Arthritis Unknown father Unknown mother Unknown Summary Purpose Reason for Referral Specialty Diagnoses / Procedures Referred By Contac t Referred To Contact Diagnoses 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, subsequent encounter Procedures NUC 3 PHASE LIMITED BONE SCAN GA BONE IMAGING, 3 PHASE Rafael Hernandez DO [address] [place] [address] Referral ID Status Reason Start Date Expiration Date V isits Requested Visits Authorized [id number] New Request 12/06/2021 12/31/2022 2 2 Specialty Diagnoses / Procedures Referred By Contac t Referred To Contact Diagnoses Hx of total knee arthroplasty, right Procedures XR KNEE RIGHT 3 VIEWS Cynthia Durant APRN-CNP [address] [place] [address] Referral ID Status Reason Start Date Expiration Date V isits Requested Visits Authorized [id number] New Request 03/14/2022 04/08/2023 1 1 Referral ID Status Reason Start Date Expiration Date V isits Requested Visits Authorized [id number] New Request 04/04/2022 04/29/2023 1 1 Specialty Diagnoses / Procedures Referred By Contac t Referred To Contact Diagnoses Hx of total knee arthroplasty, right Procedures XR KNEE RIGHT 3 VIEWS Kee Serrato MD [address] [place] [address] Referral ID Status Reason Start Date Expiration Date V isits Requested Visits Authorized [id number] New Request 06/18/2022 07/13/2023 1 1 Specialty Diagnoses / Procedures Referred By Contac t Referred To Contact Diagnoses Hx of total knee arthroplasty, right Procedures XR BONE LENGTH STUDY Kee Serrato MD [address] [place] [address] Referral ID Status Reason Start Date Expiration Date V isits Requested Visits Authorized [id number] New Request 06/18/2022 07/13/2023 1 1 Referral ID Status Reason Start Date Expiration Date V isits Requested Visits Authorized [id number] Pending Review 03/03/2023 03/27/2024 1 1 Additional Source Comments INFORMATION SOURCE (unrecogn ized section and content) DATE CREATED AUTHOR 04/26/2021 [facility] DATE CREATED AUTHOR AUTHOR'S ORGANIZ ATION 11/03/2022 [facility] DATE CREATED AUTHOR AUTHOR'S ORGANIZ ATION 03/07/2023 [facility] DATE CREATED AUTHOR AUTHOR'S ORGANIZ ATION 02/16/2024 [facility] DATE CREATED AUTHOR AUTHOR'S ORGANIZ ATION 07/08/2024 [facility] Reason for Visit (unrecogniz ed section and content) Reason Comments Pain New Patient Reason Comments Pain Specialty Diagnoses / Procedures Referred By Contac t Referred To Contact [facility] Sports Diagnoses Primary localized osteoarthritis of right hip Kee Serrato MD [address] [place] [address] Rafael Hernandez DO [address] [place] [address] Referral ID Status Reason Start Date Expiration Date V isits Requested Visits Authorized [id number] New Request 10/10/2021 11/04/2022 1 1 Reason Comments Pain Reason Comments Pain Follow-up Specialty Diagnoses / Procedures Referred By Contac t Referred To Contact Diagnoses Hx of total knee arthroplasty, right Procedures XR KNEE RIGHT 3 VIEWS Cynthia Durant APRN-BLAYNE [address] [place] [address] Referral ID Status Reason Start Date Expiration Date V isits Requested Visits Authorized [id number] New Request 03/14/2022 04/08/2023 1 1 Reason Comments Post Op Visit Reason Comments Follow-up Specialty Diagnoses / Procedures Referred By Contac t Referred To Contact Diagnoses Hx of total knee arthroplasty, right Procedures XR KNEE RIGHT 3 VIEWS Kee Serrato MD [address] [place] [address] Referral ID Status Reason Start Date Expiration Date V isits Requested Visits Authorized [id number] New Request 06/18/2022 07/13/2023 1 1 Reason Comments Pain Post Op Visit Referral ID Status Reason Start Date Expiration Date V isits Requested Visits Authorized [id number] Pending Review 03/03/2023 03/27/2024 1 1 Reason Comments follow up DEXA SCAN Care Teams (unrecognized sec tion and content) Team Status: Active Member Role Status Dates Rafa Verdin MD Primary Care Provider Active Team Status: Inactive Member Role Status Dates Rafa Verdin MD Primary Care Provider Active Start: May 18, 2024 End: May 18, 2024 Jose Sorensen II, MD Attending Provider Active Start: May 18, 2024 End: May 18, 2024 Team Status: Active Member Role Status Dates Rafa Verdin MD Primary Care Provider Active Start: May 18, 2024 Jose Sorensen II, MD Attending Provider Active Start: May 18, 2024 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 Start Date End Date Rafa Verdin MD [address] [place] [address] PCP - General Family Medicine 10/10/21 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 Start Date End Date Rafa Verdin MD [address] [place] [id number] PCP - General Family Medicine 10/10/21 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 Start Date End Date Rafa Verdin MD [address] [place] [address] PCP - General Family Medicine 10/10/21 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 Start Date End Date Rafa Verdin MD [address] [place] [address] PCP - General Family Medicine 10/10/21 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 Start Date End Date Rafa Verdin MD [address] [place] [address] PCP - General Family Medicine 10/10/21 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 Start Date End Date Rafa Verdin MD [address] [place] [address] PCP - General Family Medicine 10/10/21 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 Start Date End Date Rafa Verdin MD [address] [place] [address] PCP - General Family Medicine 10/10/21 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 Start Date End Date Rafa Verdin MD [address] [place] [address] PCP - General Family Medicine 10/10/21 Team Status: Inactive Member Role Status Dates Rafa Verdin MD Primary Care Provider Active Kee Serrato MD Attending Provider Active 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 Start Date End Date Rafa Verdin MD [address] [place] [address] PCP - General Family Medicine 10/10/21 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 Start Date End Date Rafa Verdin MD [address] [place] [address] PCP - General Family Medicine 10/10/21 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 Start Date End Date Rafa Verdin MD [address] [place] [address] PCP - General Family Medicine 10/10/21 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 Start Date End Date Rafa Verdin MD [address] [place] [address] PCP - General Family Medicine 10/10/21 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 Start Date End Date Rafa Verdin MD [address] [facility] [place] [address] PCP - General Family Medicine 02/09/23 Team Status: Inactive Member Role Status Casey Verdin MD Primary Care Provider Active Start: May 30, 2024 End: May 30, 2024 Rick Stephenson MD Attending Provider Active Sta rt: May 30, 2024 End: May 30, 2024 Team Status: Active Member Role Status Casey Verdin MD Primary Care Provider Active Start: May 30, 2024 Rick Stephenson MD Attending Provider Active Sta rt: May 30, 2024 Team Status: Inactive Member Role Status Casey Verdin MD Primary Care Provider Active Start: July 07, 2024 End: July 07, 2024 Jose Sorensen II, MD Attending Provider Active Start: July 07, 2024 End: July 07, 2024 Team Status: Inactive Member Role Status Casey Verdin MD Primary Care Provider Active Start: July 14, 2024 End: July 14, 2024 Jose Sorensen II, MD Attending Provider Active Start: July 14, 2024 End: July 14, 2024 Team Status: Inactive Member Role Status Casey Verdin MD Primary Care Provider Active Start: July 18, 2024 End: July 18, 2024 Rick Stephenson MD Attending Provider Active Sta rt: July 18, 2024 End: July 18, 2024 Goals (unrecognized section and content) Goals may [...] BE BASED ON THE PRIMARY CLINICAL RECORDS. [facility] provides no warranty or guarantee of the accuracy or completeness of information in this document.
[2024-07-28 08:50] LABS: Basophils Percent Auto 0.6 % (0.2-2.0); Eosinophils Absolute Auto 0.1 10^3/uL (0.0-0.7); Eosinophils Percent Auto 2.2 % (0.9-7.0); Hematocrit 40.8 % (36.0-48.0); Immature Granulocytes Abs Auto 0.01 10^3/uL (0.00-0.03); Immature Granulocytes Pct Auto 0.2 % (0.0-0.5); Lymphocytes Absolute Auto 1.5 10^3/uL (1.2-3.8); Lymphocytes Percent Auto 30.1 % (20.5-60.0); Mean Corpuscular HGB Conc 31.9 g/dL (29.9-35.2); Mean Corpuscular Volume 94.2 fL (81.0-99.0); Mean Platelet Volume 8.9 fL (9.5-13.5); Monocytes Absolute Auto 0.4 10^3/uL (0.3-0.8); Monocytes Percent Auto 8.4 % (1.7-12.0); Neutrophils Percent Auto 58.5 % (43.0-75.0); Platelet Count 263 10^3/uL (150-450); Red Blood Count 4.33 10^6/uL (4.20-5.40); Red Cell Distribution Width 12.2 % (11.0-15.0); White Blood Count 5.1 10^3/uL (4.0-11.0)
[2024-07-28 10:10] LABS: Estimated Average Glucose 157 mg/dL; Glycohemoglobin A1C 7.1 % (4.5-6.2)
[2024-07-28 11:04] LABS: Alanine Aminotransferase 15 U/L (14-59); Albumin Globulin Ratio 1.2; Albumin Level 3.7 g/dL (3.4-5.0); Alkaline Phosphatase 82 U/L (46-116); Anion Gap 14.8; Aspartate Amino Transferase 9 U/L (15-37); BUN Creatinine Ratio 13.8; Bilirubin Total 0.4 mg/dL (0.2-1.0); Calcium 9.1 mg/dL (8.5-10.1); Carbon Dioxide 28.4 mmol/L (21.0-32.0); Chloride 105 mmol/L (98-107); Cholesterol 217 mg/dL (<=200); Estimated GFR (African America 57 (>=60 mL/min/1.73m^2); Estimated GFR (Non-African Ame 47 (>=60 mL/min/1.73m^2); Free T3 2.45 pg/mL (2.18-3.98); Glucose 165 mg/dL (74-106); HDL Cholesterol 73 mg/dL (40-60); Potassium 4.2 mmol/L (3.5-5.1); Sodium 144 mmol/L (136-145); Thyroid Stimulating Hormone 1.917 uIU/mL (0.358-3.740); Total Protein 6.7 g/dL (6.4-8.2); Triglycerides 250 mg/dL (<=150)
== END 2024-07-28 08:28 | disposition home or self-care (01) ==
PROVIDERS: PCP Family Medicine; Visit Provider Family Medicine
DX: E78.5 Hyperlipidemia, unspecified (principal); I10 Essential (primary) hypertension; E11.9 Type 2 diabetes mellitus without complications; M25.50 Pain in unspecified joint; E55.9 Vitamin D deficiency, unspecified; E03.9 Hypothyroidism, unspecified
CPT/HCPCS: 36415; 80053; 80061; 82306; 83036; 83540; 84436; 84443; 84481; 85025

== ENCOUNTER 2024-08-09 08:19 | Outpatient (OUT) | payer MEDICARE, BC, SELFPAY ==
--- NOTE | 2024-08-09 08:21 | US_ITS ---
The [address] [address] Patient Name: DIALLO RAHMAN MRN: [id number] date: 1960 Sex: F Assigned Patient Location: US Current Patient Location: Accession/Order Number: [id number] Exam Date: 08/09/2024 08:25 Report Date: 08/09/2024 09:30 At the request of: RAFA GARVEY Procedure: US aorta EXAM: US aorta HISTORY: Hypertension. ; Family history of abdominal aortic aneurysm COMPARISON: CT abdomen pelvis 12/26/2020 TECHNIQUE: Ultrasound was performed of the abdominal aorta. FINDINGS: AORTA: The aorta is atherosclerotic, but there is no visible aneurysm or occlusion. OTHER: Negative. US/US aorta IMPRESSION: 1. Evaluation is slightly limited by patient body habitus. 2. No aortic aneurysm. Electronically authenticated by: TAIWO BROWN Date: 08/09/2024 09:30
== END 2024-08-09 08:20 | disposition home or self-care (01) ==
LOC: US 08:19
PROVIDERS: PCP Family Medicine; Visit Provider Family Medicine
DX: I10 Essential (primary) hypertension (principal)
CPT/HCPCS: 76706

== ENCOUNTER 2025-05-15 08:49 | Outpatient (OUT) | payer MEDICARE, BC, SELFPAY ==
--- OUTSIDE RECORDS SUMMARY | 2025-05-04 07:30 | XMS_ITS | Encounter Summary ---
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; Chronic pain of right knee Social History Tobacco UseTypesPacks/DayYears UsedDateSmoking Tobacco: NeverSmokeless Tobacco: NeverAlcohol UseStandard Drinks/WeekCommentsNot Currently0 (1 standard drink = 0.6 oz pure alcohol)CommentsUnknownSex and Gender InformationValueDate RecordedSex Assigned at BirthNot on fileLegal JweJcwakr36/02/2022 2:13 PM EST Gender IdentityNot on fileSexual OrientationNot on filedocumented as of this encounter Last Filed Vital Signs Vital SignReadingTime TakenCommentsBlood Pressure--Pulse--Ebtizhayytn37.4 ??C (97.6 ??F)05/04/2025 8:31 AM EDTRespiratory Rate--Oxygen Saturation--Inhaled Oxygen Concentration--Gmvcec92.2 kg (192 lb 4.8 oz)05/04/2025 8:31 AM EDTHeight 162.6 cm (5' 4 )05/04/2025 8:31 AM EDTBody Mass Index33.011 8:31 AM EDT documented in this encounter Functional Status * Are you deaf or do you have serious difficulty hearing?AnswerDate of XjqdvpxuvdPoksnjTg21/30/2022 4:19 PM Glo White RN * Are you blind or do you have serious difficulty seeing, even when wearing glasses?AnswerDate of QwmcsklvouYqzbhxJe68/30/2022 4:19 PM Glo White RN * Do you have serious difficulty walking or climbing stairs (5 years or older)? AnswerDate of TnsjzixedxOvwfbbMzo67/30/2022 4:19 PM Glo White RN * Do you have difficulty dressing or bathing (5 yrs or older)?AnswerDate of IulbkskonwGuhewxJj10/30/2022 4:19 PM Glo White RN * Because of a physical, mental, or emotional condition, do you have difficulty doing errands alone such as visiting a doctor's office or shopping (5 yrs or older)?AnswerDate of IknlqkycsqJruhzhGn24/30/2022 4:19 PM Glo White RN documented as of this encounter Mental Status * Because of a physical, mental, or emotional condition, do you have serious difficulty concentrating, remembering, or making decisions (5 yrs or older)? AnswerEntry XdwzIzpjzpXa58/30/2022 4:19 PM Glo White RN documented in this encounter Progress Notes * Danika Cruz - 05/04/2025 8:30 AM EDT Chief Complaint Patient presents with Right Hip - Pain Pain Radiation To: right knee-knee's been replaced x 2. Pain Duration: 3 yrs. Pain Frequency: frequent Pain Quality: aching, soreness Factors That Aggravate Pain: activity (prolong walking/ standing, squatting.) Factors That Relieve Pain: rest Re-evaluation with concerns for right hip related symptoms. Pt feeling better with the hip. Established with Dr. Serrato Hip joint injection in January helped hip but did not help the knee. IMPRESSION/PLAN: Xrays from 11/17/24 demonstrated moderate right hip degenerative changes. 02-17-25 Bone scan suggesting losing of the knee replacement. Medical decision making has been discussed with patient including potential further work-up, surgical and non-surgical options. Continue current conservative treatment. Medication management: continue analgesics as needed. We have discussed additional workup and treatment that could be needed. Follow-up in 3 months for office visit re-evaluation of right hip. This office visit encompasses care, provided by me, who is serving as the continued focal point forthe patient's chronic pain and longitudinal orthopedic condition. Chronic orthopedic condition/s for this encounter may include arthritis, otherwise possibly listed as degenerative joint disease (DJD), osteoarthritis (OA), or other common chronic orthopedic conditions. Visit Vitals Temp 97.6 ??F (36.4 ??C) (Temporal) Ht 1.626 m (5' 4 ) Wt 87.2 kg (192 lb 4.8 oz) BMI 33.01 kg/m?? *Time components listed in minutes below. This data may or may not be needed for insurance reimbursement purposes. Reviewing clinical note(s) from previous visit/ER/urgent care/PCP/other specialists 4 Review of medical history 4 Review of medical assistant ob gyn or emr trainer note 4 Independently obtain and review medical history and history of present illness with patient 4 Other counseling and coordination of care 7 Updating patient chart, documentation of clinical encounter and signing of orders 7 *Portions of this note may have been created with [email or web address], other software, or a scribe, which leads to grammatical and typographical errors which are not employment program representative of the intent with my spoken words. 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 Pain Duration: 3 yrs. Pain Frequency: frequent Pain Quality: aching, soreness Factors That Aggravate Pain: activity (prolong walking/ standing, squatting.) Factors That Relieve Pain: rest Re-evaluation with concerns for right hip related symptoms. Pt feeling better with the hip. Established with Dr. Serrato Hip joint injection in January helped hip, but did not help the knee. IMPRESSION/PLAN: Xrays from 11/17/24 demonstrated moderate right hip degenerative changes. 02-17-25 Bone scan suggesting losing of the knee replacement. Medical decision making has been discussed with patient including potential further work-up, surgical and non-surgical options. Continue current conservative treatment. Medication management: continue analgesics as needed. We have discussed additional workup and treatment that could be needed. She meets with Dr. Serrato today to discuss further workup or treatment for possible TKA loosening. Follow-up in 3 months for office visit re-evaluation of right hip. This office visit encompasses care, provided by me, who is serving as the continued focal point forthe patient's chronic pain and longitudinal orthopedic condition. Chronic orthopedic condition/s for this encounter may include arthritis, otherwise possibly listed as degenerative joint disease (DJD), osteoarthritis (OA), or other common chronic orthopedic conditions. Visit Vitals Temp 97.6 ??F (36.4 ??C) (Temporal) Ht 1.626 m (5' 4 ) Wt 87.2 kg (192 lb 4.8 oz) BMI 33.01 kg/m?? *Time components listed in minutes below. This data may or may not be needed for insurance reimbursement purposes. Reviewing clinical note(s) from previous visit/ER/urgent care/PCP/other specialists 1 Review of medical history 1 Review of medical assistant ob gyn or emr trainer note 1 Independently obtain and review medical history and history of present illness with patient 4 Other counseling and coordination of care 7 Updating patient chart, documentation of clinical encounter and signing of orders 7 *Portions of this note may have been created with [email or web address], other software, or a scribe, which leads to grammatical and typographical errors which are not employment program representative of the intent with my spoken words. Clinical insurance legal assistant/AT/MA was acting as a scribe today for this note. I have performed all essentialcomponents of the history, and physical exam. I have confirmed the diagnosis and developed a plan of care at this visit. I have reviewed the note following the visit and have made edits as appropriate to my evaluation and plan of care. 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
--- OUTSIDE RECORDS SUMMARY | 2025-05-04 08:30 | XMS_ITS | Encounter Summary ---
[facility] Address [address] [place] [address] Care Team Providers Care Maintenance Technician Name Role Phone Prem Verdin MD Primary Care Provider [phone] Reason for Referral * Consultation (Routine) - New RequestSpecialtyDiagnoses / ProceduresReferred By ContactReferred To ContactPhysical Medicine & Rehabilitation Diagnoses Low back pain, unspecified back pain laterality, unspecified chronicity, unspecified whether sciatica present Kee Serrato MD [address] [place] [id number] Phone: tel: fax: Gerardo Malik, DO [address] [place] [address] Phone: tel: fax: Referral IDStatusReasonStart DateExpiration DateVisits RequestedVisits [id number]/ Reason for Visit * ReasonCommentsPain * Consultation (Routine) - New RequestSpecialtyDiagnoses / ProceduresReferred By ContactReferred To ContactOrthopaedic Surgery / Orthopaedics Diagnoses 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 [address] [place] [address] Kee Serrato MD [address] [place] [address] Low back pain, unspecified back pain laterality, unspecified chronicity, unspecified whether sciatica present (Primary Dx) Social History Tobacco UseTypesPacks/DayYears UsedDateSmoking Tobacco: NeverSmokeless Tobacco: NeverAlcohol UseStandard Drinks/WeekCommentsNot Currently0 (1 standard drink = 0.6 oz pure alcohol)CommentsUnknownSex and Gender InformationValueDate RecordedSex Assigned at BirthNot on fileLegal PonGpjcfx22/02/2022 2:13 PM EST Gender IdentityNot on fileSexual OrientationNot on filedocumented as of this encounter Last Filed Vital Signs Vital SignReadingTime TakenCommentsBlood Pressure--Pulse--Temperature-- Respiratory Rate--Oxygen Saturation--Inhaled Oxygen Concentration--Hrppes20.1 kg (189 lb 12.8 oz)05/04/2025 9:20 AM AQQPpspwz140.6 cm (5' 4 )05/04/2025 9:20 AM EDTBody Mass Index32.5805/04/2025 9:20 AM EDTdocumented in this encounter Functional Status * Are you deaf or do you have serious difficulty hearing?AnswerDate of MgohvzddmkOnsrfcGn84/30/2022 4:19 PM Glo White RN * Are you blind or do you have serious difficulty seeing, even when wearing glasses?AnswerDate of HfmzxobpyhVzdhikSj54/30/2022 4:19 PM Glo White RN * Do you have serious difficulty walking or climbing stairs (5 years or older)? AnswerDate of SvkpilnsvfUhpabwQfw38/30/2022 4:19 PM Glo White RN * Do you have difficulty dressing or bathing (5 yrs or older)?AnswerDate of VrhaywanigZolzowHx26/30/2022 4:19 PM Glo White RN * Because of a physical, mental, or emotional condition, do you have difficulty doing errands alone such as visiting a doctor's office or shopping (5 yrs or older)?AnswerDate of JuiilulhsyMxnqjxDh06/30/2022 4:19 PM Glo White RN documented as of this encounter Mental Status * Because of a physical, mental, or emotional condition, do you have serious difficulty concentrating, remembering, or making decisions (5 yrs or older)? AnswerEntry PtghLmxtlxLq38/30/2022 4:19 PM Glo White RN documented in this encounter Progress Notes * Norma Wilson - 05/04/2025 9:30 AM EDT Ortho Nurse - Established Patient Intake Room#: Room 1---Review of bone scan. Patient las seen in our ofice 11/17/24. SF was to start treating her conservatively. Made a referral to DR. Hernandez for an intraarticular right hip injections. Saw Dr. Hernandez on 01/26/25 and and received a hip injection. Saw Mary again on 03/30/25 he referred her back to for a further opinion regarding the knee and review of her bone scan. She was told to continue Voltaren and tylenol. The injection did not help the knee. Completed PT and states that it didn'thelp. Saw Dr. Hernandez today he stated that the bone scan of the right knee suggest losing of the right knee replacement. Was advised to continue conservative treatments at this time she does state thatit does help a little. No recent falls or injuries. No reports of new or worsening pain, states the pain is about the sameas it was last office visit. States if she sits for a long period of time when she goes to get up the knee is stiff and hard to movie. Pain / Denies nicotine Date: 05/04/2025 9:14 AM Patient: Katt Archer MR#: [id number] : 1960 Age: 64 y.o. Referring Physician: Self, Self Insurance: Payor: Medicare / Plan: Medicare A and B / Product Type: *No Product type* / No chief complaint on file. There were no vitals taken for this visit. Pain 1. Are you having pain? 2. On a scale from 1-10: Recent Labs Lab Results Component Value Date CRP <5.0 02/27/2025 Lab Results Component Value Date SEDRATE 4 02/27/2025 Lab Results Component Value Date WBC 10.2 03/05/2022 HGB 10.2 (L) 03/05/2022 HCT 30.0 (L) 03/05/2022 PLATELET 213 03/05/2022 MCV 91.2 03/05/2022 History Past Medical History[1] Past Surgical History[2] Family History: Her family history is not [...] dental work. (Patient not taking: Reported on 05/04/2025) aspirin EC [address] Take 1 table twice a day for 30days. This medication is for blood clot prevention. (Patient not taking: Reported on 05/04/2025) 60 tablet 0 docusate 100 MG capsule Take 1 capsule by mouth 2 times daily. (Patient not taking: Reported on 05/04/2025) 60 capsule 0 gliMEPIride 4 MG tablet Take by mouth daily every morning. Takes 2 tablets every morning Januvia 100 MG tablet Take 1 tablet by mouth daily. Jardiance 10 MG tablet Take 1 tablet by mouth daily. losartan 100 MG tablet Take 1 tablet by mouth daily. meloxicam 7.5 MG tablet Take 1 tablet by mouth daily. Take with food. (Patient not taking: Reportedon 05/04/2025) 30 tablet 0 meloxicam 7.5 MG tablet Take 1 tablet by mouth daily. (Patient not taking: Reported on 05/04/2025) 30 tablet 1 metFORMIN 1000 MG tablet Take 1 tablet by mouth 2 times daily. (Patient not taking: Reported on 05/04/2025) methylPREDNIsolone 4 MG Tab Therapy Pack tablet Take 1 tablet by mouth As directed. follow package directions (Patient not taking: Reported on 05/04/2025) 21 tablet 0 naloxone 4 MG/0.1ML 1 spray by Nasal route once for 1 dose. [place] into the nose as directed. Call 911. If no response in 2 minutes use a new nasal spray in other nostril. Repeat until help arrives. (Patient not taking: Reported on 05/04/2025) 1 Each 0 omeprazole [address] capsule Take 1 capsule by mouth daily. (Patient not taking: Reported on 05/04/2025) 30 capsule 0 OneTouch Ultra Blue Test Strip strip Use 1 strip In Vitro once daily for 100 days Dx: E11.9 oxyCODONE 5 MG tablet Take one to two tabs every 4-6 hours as needed for severe pain. Wean as tolerated (Patient not taking: Reported on 05/04/2025) 20 tablet 0 Oyster Shell Calcium w/D 500-5 MG-MCG tablet Take by mouth daily. Pantoprazole [address] tablet DR Take 1 tablet by mouth daily. SIMVASTATIN PO Take 20 mg by mouth every evening at 6 PM. sucralfate 1 g tablet Take 1 tablet by mouth every 6 hours. (Patient not taking: Reported on 05/04/2025) 120 tablet 0 therapeutic multivitamin-minerals tablet Take 1 tablet by mouth at bedtime. (Patient not taking: Reported on 05/04/2025) 30 tablet 0 No facility-administered medications prior to visit. Allergies: She is allergic to actos [pioglitazone], sulfa antibiotics, diclofenac, tramadol, lisinopril, and sulfamethoxazole-trimethoprim. [1] Past Medical History: Diagnosis Date Arthritis Diabetes mellitus Essential hypertension, benign GERD (gastroesophageal reflux disease) [2] Past Surgical History: Procedure Laterality Date REVISION ARTHROPLASTY KNEE Right 03/04/2022 Laterality: Right; Surgeon: Kee Serrato MD; Location: [facility] KNEE REPLACEMENT Right 05/02/2019 Dr. Laly Camara KNEE REPLACEMENT Left 09/27/2018 Dr. Camara * Kee Serrato MD - 05/04/2025 9:30 AM EDT HPI: Patient is here today for evaluation of right knee pain. Primary complaint is pain, impairmentin the knee and a decreased quality of life secondary to her right knee pain. She saw Dr. Hernandez andhe referred her for a bone scan due to implant loosening and she is here to review it. She had a right knee revision in 2021 with this office. She is using Voltaren gel and Tylenol for pain no help. She has completed PT no relief. LABS: 02/27/25 ESR, CRP WNL PHYSICAL EXAM: This is an alert, oriented, and age-appropriate female. She is in no distress. Pleasant and cooperative. EXTREMITIES: The upper extremities have no gross deformities. Normal stability.Skin Intact. 5/5 motor. Intact sensation. Normal neurovascular status. Normal coordination. The lower extremities have no gross deformities. Normal stability. Skin Intact. 5/5 motor. Intact sensation tender over tibial plateau. Normal neurovascular status. Normal coordination. Range of motion upon exam today is 0-120. Stable examination to varus and valgus stress. Full motion of hip. No pain. No impingement. No instability. Contralateral leg has normal alignment. Full motion. No pain. No impingement. No instability. IMAGING: Plain film radiographs were reviewed. AP hip and pelvis series demonstrate severe arthritis to right hip, loss of joint space, subchondral sclerosis, osteophyte formation, and vlag-on-xhos contact. Plain film radiographs were reviewed. She has a total knee arthroplasty in good position and alignment. No evidence of prosthetic implant loosening or migration. 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 We have gone over the diagnosis, radiographs, physical exam findings and treatment options together. We then discussed the nature of arthritis and its associated symptoms. We are going to start conservatively treating her. I will make a referral to Dr. Malik due to her central low back pain.I would also like Katt to see Dr. Hernandez for an intraarticular right hip joint injection to see if this helps her back and knee pain. She may return after she has completed this order or referral and is still having localized right knee pain. I have reviewed the findings of my clinical staff below and agree with their assessment. Vitals: 05/04/25 0920 Weight: 86.1 kg (189 lb 12.8 oz) Height: 1.626 m (5' 4 ) Pain Recent Labs Lab Results Component Value Date CRP <5.0 02/27/2025 Lab Results Component Value Date SEDRATE 4 02/27/2025 Lab Results Component Value Date WBC 10.2 03/05/2022 HGB 10.2 (L) 03/05/2022 HCT 30.0 (L) 03/05/2022 PLATELET 213 03/05/2022 MCV 91.2 03/05/2022 Past Medical History[1] Past Surgical History[2] History reviewed. No pertinent family history. Social History[3] Current Medications[4] Allergies[5] [1] Past Medical History: Diagnosis Date Arthritis Diabetes mellitus Essential hypertension, benign GERD (gastroesophageal reflux disease) [2] Past Surgical History: Procedure Laterality Date REVISION ARTHROPLASTY KNEE Right 03/04/2022 Laterality: Right; Surgeon: Kee Serrato MD; Location: [facility] KNEE REPLACEMENT Right 05/02/2019 Dr. Laly Camara KNEE REPLACEMENT Left 09/27/2018 Dr. Camara [3] Social History Socioeconomic History Marital status: Tobacco Use Smoking status: Never Smokeless tobacco: Never Vaping Use Vaping status: Never Used Substance and Sexual Activity Alcohol use: Not Currently Drug use: Never [4] Current Outpatient Medications: acetaminophen 325 MG tablet, Take 2 tablets by mouth every 4 hours as needed for Mild Pain., Disp: 50 tablet, Rfl: 1 gliMEPIride 4 MG tablet, Take by mouth daily every morning. Takes 2 tablets every morning, Disp: , Rfl: Januvia 100 MG tablet, Take 1 tablet by mouth daily., Disp: , Rfl: Jardiance 10 MG tablet, Take 1 tablet by mouth daily., Disp: , Rfl: losartan 100 MG tablet, Take 1 tablet by mouth daily., Disp: , Rfl: OneTouch Ultra Blue Test Strip strip, Use 1 strip In Vitro once daily for 100 days Dx: E11.9, Disp:, Rfl: Oyster Shell Calcium w/D 500-5 MG-MCG tablet, Take by mouth daily., Disp: , Rfl: Pantoprazole [address] nancy MAYORGA, Take 1 tablet by mouth daily., Disp: , Rfl: SIMVASTATIN PO, Take 20 mg by mouth every evening at 6 PM., Disp: , Rfl: amoxicillin 500 MG capsule, Prior to dental work. (Patient not taking: Reported on 05/04/2025), Disp: , Rfl: aspirin EC [address], Take 1 table twice a day for 30days. This medication is for blood clot prevention. (Patient not taking: Reported on 05/04/2025), Disp: 60 tablet, Rfl: 0 docusate 100 MG capsule, Take 1 capsule by mouth 2 times daily. (Patient not taking: Reported on 05/04/2025), Disp: 60 capsule, Rfl: 0 meloxicam 7.5 MG tablet, Take 1 tablet by mouth daily. Take with food. (Patient not taking: Reported on 05/04/2025), Disp: 30 tablet, Rfl: 0 meloxicam 7.5 MG tablet, Take 1 tablet by mouth daily. (Patient not taking: Reported on 05/04/2025), Disp: 30 tablet, Rfl: 1 metFORMIN 1000 MG tablet, Take 1 tablet by mouth 2 times daily. (Patient not taking: Reported on 05/04/2025), Disp: , Rfl: methylPREDNIsolone 4 MG Tab Therapy Pack tablet, Take 1 tablet by mouth As directed. follow packagedirections (Patient not taking: Reported on 05/04/2025), Disp: 21 tablet, Rfl: 0 naloxone 4 MG/0.1ML, 1 spray by Nasal route once for 1 dose. Kalama into the nose as directed. Call 911. If no response in 2 minutes use a new nasal spray in other nostril. Repeat until help arrives. (Patient not taking: Reported on 05/04/2025), Disp: 1 Each, Rfl: 0 omeprazole [address] capsule, Take 1 capsule by mouth daily. (Patient not taking: Reported on 05/04/2025), Disp: 30 capsule, Rfl: 0 oxyCODONE 5 MG tablet, Take one to two tabs every 4-6 hours as needed for severe pain. Wean as tolerated (Patient not taking: Reported on 05/04/2025), Disp: 20 tablet, Rfl: 0 sucralfate 1 g tablet, Take 1 tablet by mouth every 6 hours. (Patient not taking: Reported on 05/04/2025), Disp: 120 tablet, Rfl: 0 therapeutic multivitamin-minerals tablet, Take 1 tablet by mouth at bedtime. (Patient not taking: Reported on 05/04/2025), Disp: 30 tablet, Rfl: 0 [5] Allergies Allergen Reactions Actos [Pioglitazone] Itching Sulfa Antibiotics Hives Diclofenac Nausea Only Tramadol Itching Lisinopril Cough Sulfamethoxazole-Trimethoprim Rash documented in this encounter Plan of Treatment DateTypeDepartmentCare Team (Latest Contact Info)Exzuyxacwjm38/10/2026 10:00 AM ESTOffice Visit [facility] [address] [place] [phone] Gerardo Malik, DO [address] [place] [address] 08/17/2025 9:30 AM ESTOffice Visit [facility] [address] [place] [phone] Rafael Hernandez, DO [address] [place] [address] NameTypePriorityAssociated DiagnosesOrder ScheduleAMB REFERRAL TO SPINAL CONSULT Outpatient ReferralRoutine Low back pain, unspecified back pain laterality, unspecified chronicity, unspecified whether sciatica present Ordered: 05/04/2025documented as of this encounter Visit Diagnoses Diagnosis Low back pain, unspecified back pain laterality, unspecified chronicity, unspecified whether sciatica present- Primary documented in this encounter Care Teams Team MemberRelationshipSpecialtyStart DateEnd Date Prem Verdin MD PCP - GeneralFamily Medicine10/10/21documented as of this encounter
--- NOTE | 2025-05-15 08:51 | MM_ITS ---
Patient Name: DIALLO RAHMAN MR#: [id number] : 1960 Exam Date: 05/15/2025 Ordering Doctor: DR ADWN MUNOZ . RADIOLOGY REPORT PROCEDURE: MM TOMOSYNTHESIS SCREENING BI COMPARISON: MM TOMOSYNTHESIS SCREENING BI, 05/13/2024. MM TOMOSYNTHESIS SCREENING BI, 05/12/2023. MG MAMM SCREEN 3D CARISSA CAD, 04/24/2022. MG MAMM SCREEN 3D CARISSA CAD, 03/29/2021. INDICATIONS: Screening Calculator Name NCI Breast Cancer Risk Assessment Tool 5 Year Breast Cancer Risk 1.90% Lifetime Breast Cancer Risk 6.70% Personal Breast Cancer No Personal Ovarian Cancer No Treatments None Family Cancers Brother with kidney cancer at age 67. LOCATION: [facility] BREAST COMPOSITION: There are scattered areas of fibroglandular density. FINDINGS: RIGHT BREAST: No significant suspicious finding. Similar benign-appearing calcifications are present. Similar focal asymmetries are present. LEFT BREAST: No significant suspicious finding. Similar benign-appearing calcifications are present. Similar focal asymmetries are present. DIAGNOSTIC CATEGORY 2--BENIGN FINDING. NO CHANGE FROM COMPARISON. RECOMMENDATIONS: ROUTINE MAMMOGRAM AND CLINICAL EVALUATION IN 12 MONTHS. Dictated by: Tomas Arambula MD on 05/15/2025 at 11:10 Approved by: Tomas Arambula MD on 05/15/2025 at 11:13
--- OUTSIDE RECORDS SUMMARY | 2025-05-15 08:52 | XMS_ITS | Clinical Summary ---
Author Organization [facility] Address [address] [place] [address] Care Team Providers Care Tack Maker Name Role Phone Prem Verdin MD Primary Care Provider [phone] Allergies Active AllergyReactionsCriticalityNoted DateCommentsDiclofenacGI intolerance, Nausea Only,PiroZruvoc40/07/2022LisinoprilCough,OltppjcQfe23/07/2022ioglitazone Itching,Rash,QhlugrzTxlm37/07/2022ulfa AntibioticsHives,ByedtnhWwbu70/07/2022 Sulfamethoxazole-MqrmuilvsrxiOnwfCla74/07/2023TramadolItching,Rash,UnknownMedium 10/10/2021 Medications MedicationSigDispense QuantityRefillsLast FilledStart DateEnd DateStatus glimepiride (Amaryl) 4 MG tablet Take 8 mg by mouth in the morning. Take before meals.Active losartan (Cozaar) 100 MG tablet Take 50 mg by mouth DailyActive metFORMIN (Glucophage) 1000 MG tablet Take 1,000 mg by mouth in the morning and 1,000 mg in the evening.Active simvastatin (Zocor) 20 MG tablet Take 20 mg by mouth DailyActive Januvia 100 MG tablet Take 100 mg by mouth DailyActive Calcium Carbonate-Vit D-Min (CALCIUM 1200 PO) Take 1 capsule by mouth DailyActive meloxicam (Mobic) 7.5 MG tablet if neededActive empagliflozin (Jardiance) 10 MG Take by mouthActive pantoprazole (ProtoNix) 40 MG EC tablet Take 40 mg by mouth in the morning. Take before meals. Do not crush, chew, or split.Active acetaminophen (Tylenol) 500 MG tablet Take by mouthActive predniSONE (Deltasone) 10 MG tablet Indications:Primary osteoarthritis of left foot,Pain in joint of left foot, Hallux valgus (acquired), left foot,Difficulty walking1 tablet twice daily x 7 days; followed by 1 tablet daily as directed until complete 21 tablet 5Active Active Problems ProblemNoted DateDiagnosed LlfzHwsdrfqjbw24/18/2024 Encounters DateTypeDepartmentCare DoktJfxgqfmbslw93/09/2025 5:25 PM EDTAncillary Procedure General acute hospital Podiatry [address] [place] [address] 04/13/2025 1:45 PM EDTOffice Visit General acute hospital Podiatry [address] [place] [place] [address] Joe Ribeiro DPM Primary osteoarthritis of left foot (Primary Dx); Pain in joint of left foot; Hallux valgus (acquired), left foot; Difficulty velpqmc4404/13/2025amboo flowsheet General acute hospital Podiatry [address] [place] [address] Joe Ribeiro DPM 04/13/20253344Tmfemz85/08/5235Blfsdy35/30/8499Qypces02/21/2025 11:00 AM EDTOffice Visit [facility]ION[facility] GOLDSTEIN [address] [place] [address] [place] [address] Abiodun Brewer DO Breast cancer screening by mammogram; Well woman exam with routine gynecological exam02/23/2025amb flowsheet [facility] [address] [place] [address] [place] [phone] Abiodun Brewer DO from Last 3 Months Immunizations ImmunizationAdministration DatesNext DueInfluenza, High Dose Seasonal, Preservative Free06/10/2024Influenza, injectable, MDCK, preservative free, kwssdqyicupg10/20/2022,05/24/2021,05/11/2020Influenza, injectable, quadrivalent, preservative free04/21/2019,04/18/2018,05/07/2017Influenza, seasonal, injectable 04/05/2020 Family History Medical HistoryRelationNameCommentsDiabetesFatherHypertensionFatherDiabetes MotherHeart diseaseMotherHypertensionMotherCancerSiblingRelationNameStatus UbpmjbrvArmthoxe4YkdoxzUfaoapawOpvlsgOunpoiwmYfhneqpIpm1 Social History Tobacco UseTypesPacks/DayYears UsedDateSmoking Tobacco: NeverSmokeless Tobacco: Never Tobacco Cessation:Counseling Given: No Alcohol UseStandard Drinks/WeekCommentsYes0 (1 standard drink = 0.6 oz pure alcohol)1-2 drinks less than monthly in the past year, Caffeine intake: 1-2 cups per dayCommentsNoSex and Gender InformationValueDate RecordedSex Assigned at BirthNot on fileLegal NgfUrrmzm24/15/2023 7:34 PM EDTGender Identity Not on fileSexual OrientationNot on file Last Filed Vital Signs Vital SignReadingTime TakenCommentsBlood Dyzjhvnr662/7008/ 11:29 AM EDT Pulse--Temperature--Respiratory Rate--Oxygen Saturation--Inhaled Oxygen Concentration--Hczakk61.2 kg (190 lb)04/13/2025 1:25 PM VDNFutvtz015.1 cm (5' 5 )04/13/2025 1:25 PM EDTBody Mass Index31.6204/13/2025 1:25 PM EDT Plan of Treatment DateTypeDepartmentCare Team (Latest Contact Info)Njmdbdxrniw16/25/2026 10:00 AM EDTProcedure Visit [facility] [place] [facility] [address] [facility] [address] Abiodun Brewer, [address] [facility] [place] [address] Health MaintenanceDue DateLast DoneCommentsCT Usqvtyicdlhs59/06/1959Colonoscopy 1958Colorectal Cancer Xkdtjhjpq90/06/1959FIT-DNA1958FIT1958 FOBT1960 0855Aeptofbkinzzf42/06/1959Pneumococcal Vaccine: 65+ Years (1 of 1 - PCV)06/06/2009COVID-19 Vaccine ( season)/, 10/19/2020, 09/21/2020Influenza Vaccine (#1)/12/2023, 04/24/2022, 05/24/2021, Additional history ozpfluTifnpdhwn67/08/202511/02/2024, 05/12/2023, 04/24/2022HPV/TbmrtsWlziuhpfomlc18/25/2023ervical Cancer ScreeningDiscontinued Pap SsquoZsjzaihqyfgb16/12/2024, 02/27/2023 Procedures Procedure NamePriorityDate/TimeAssociated DiagnosisCommentsXR FOOT 3+ VIEWS LEFT Smgrstc6004/13/2025 5:24 PM EDT Primary osteoarthritis of left foot Pain in joint of left foot Hallux valgus (acquired), left foot Difficulty walking MM TOMOSYNTHESIS SCREENING BI05/13/2024 11:59 AM EST PAP AHDPZTnirivi34/12/2024 12:00 AM EDTTHINPREP PAP AND HPV MRNA E6/E7 W/RFL HPV 16,18/32Vedylyg63/25/2023 10:11 AM EDT Well woman exam with routine gynecological exam from Last 3 Months or Most Recently Relevant to Health Maintenance Results * XR foot 3+ views left (04/13/2025 5:24 PM EDT)Anatomical RegionLaterality ModalityLower Extremities, FootLeftRadiographic ImagingSpecimen (Source) Anatomical Location / LateralityCollection Method / VolumeCollection Time Received Time Narrative 04/13/2025 5:25 PM EDT Imaging Result: 3 views left foot: Weight-bearing: DP, oblique, lateral: 04/13/2025: Unremarkable for acute osseous or joint pathology. ?? Unremarkable for fracture or stress fracture changes. ??Mild-moderate degenerative arthritic changes of the 2nd MTP joint with hypertrophy of the 2nd metatarsal head. ??Metatarsal parabola acceptable. ??HAV deformity, consistent with clinical findings; with lateral deviation of the 1st MTP joint. ??Fairly extensive arthritic changes of the 2nd TMT joint. Authorizing ProviderResult TypeResult StatusStirais Ribeiro DPMIMG XR PROCEDURES Final Result * MM TOMOSYNTHESIS SCREENING BI (05/13/2024 11:59 AM EST)Anatomical Region LateralityModalityOtherSpecimen (Source)Anatomical Location / Laterality Collection Method / VolumeCollection TimeReceived Time05/13/2024 11:59 AM EST Narrative 05/13/2024 12:00 PM EST [facility] ?[address] ? [place] [address] ? Mammography Report ? Signed ? Patient: KATT ARCHER ?MR#: [id number] ?? : 1960 ?Acct:[id number] ?? Age/Sex: 63 / F ?ADM Date: 05/13/24 ?? Loc: MAMMO ? Attending Dr: Abiodun Brewer D.O. ? Ordering Physician: Abiodun Brewer D.O. ?Results: ? Date of Service: 05/13/24 ?Follow Up: ? Procedure(s): MM tomosynthesis screening BI ?? Accession Number(s): [id number] ? cc: Abiodun Brewer D.O.; Prem Verdin M.D. ? Patient Name: ? KATT ARCHER ? MR#: [id number] ? : 1960 ? Exam Date: 05/13/2024 ?? Ordering Doctor: DR Abiodun Brewer . ? RADIOLOGY REPORT ? PROCEDURE: ? MM TOMOSYNTHESIS SCREENING BI ? COMPARISON: ? MM TOMOSYNTHESIS SCREENING BI, 05/12/2023. ??MG MAMM SCREEN 3D ?? CARISSA CAD, 04/24/2022. ??MG MAMM SCREEN 3D CARISSA CAD, 03/29/2021. ??MG MAMM SCREEN ?? CARISSA W CAD, 11/24/2018. ? INDICATIONS: ? Breast Cancer Screening ? Calculator Name ? NCI Breast Cancer Risk Assessment Tool ?? 5 Year Breast Cancer Risk ? 1.80% ?? Lifetime Breast Cancer Risk ? 6.90% ?? Personal Breast Cancer ?No ?? Personal Ovarian Cancer ? No ?? Treatments ? None ?? Family Cancers ? Brother with kidney cancer at age 67. ? LOCATION: ? [facility] ? BREAST COMPOSITION: ? There are scattered areas of fibroglandular density. ? FINDINGS: ? DIAGNOSTIC CATEGORY 2--BENIGN FINDING: ? RIGHT BREAST: ??No significant suspicious finding. ??Scattered benign-appearing ?? calcifications are present. ??No significant change has occurred. ? LEFT BREAST: ??No significant suspicious finding. ??Scattered benign-appearing ?? calcifications are present. ??No significant change has occurred. ? RECOMMENDATIONS: ? ROUTINE MAMMOGRAM AND CLINICAL EVALUATION IN 12 MONTHS. ? PLEASE NOTE: ??A NORMAL MAMMOGRAM DOES NOT EXCLUDE THE POSSIBILITY OF BREAST ?? CANCER. ??A CLINICALLY SUSPICIOUS PALPABLE LUMP SHOULD BE BIOPSIED. ? Dictated by: Joe Dutton M.D. on 05/13/2024 at 11:56 ? Approved by: Joe Dutton M.D. on 05/13/2024 at 11:59 ? Dictated By: ?Joe Dutton M.D. ? Signed By: ?05/13/24 1200 ? DD/ 1159 ? TD/TT: ? Billing Specialist: Procedure Note Radiology, Radiologist, MD - 05/13/[address] [address] Mammography Report Signed Patient: KATT ARCHER MMR#: [id number] : 9Acct:[id number] Age/Sex: 63 / FADM Date: 05/13/24 Loc: MAMMO Attending Dr: Abiodun Brewer D.O. Ordering Physician: Abiodun Brewer D.O.Results: Date of Service: 05/13/24Follow Up: Procedure(s): MM tomosynthesis screening BI Accession Number(s): [id number] cc: Abiodun Brewer D.O.; Prem Verdin M.D. Patient Name: KATT ARCHER MR#: [id number] : 1960 Exam Date: 05/13/2024 Ordering Doctor: DR Abiodun Brewer . RADIOLOGY REPORT PROCEDURE: MM TOMOSYNTHESIS SCREENING BI COMPARISON: MM TOMOSYNTHESIS SCREENING BI, 05/12/2023. MG MAMM AKTNIZ4T CARISSA CAD, 04/24/2022. MG MAMM SCREEN 3D CARISSA CAD, 03/29/2021. MG MAMMSCREEN CARISSA W CAD, 11/24/2018. INDICATIONS: Breast Cancer Screening Calculator Name NCI Breast Cancer Risk Assessment Tool 5 Year Breast Cancer Risk 1.80% Lifetime Breast Cancer Risk 6.90% Personal Breast Cancer No Personal Ovarian Cancer No Treatments None Family Cancers Brother with kidney cancer at age 67. LOCATION: [facility] BREAST COMPOSITION: There are scattered areas of fibroglandulardensity. FINDINGS: DIAGNOSTIC CATEGORY 2--BENIGN FINDING: RIGHT BREAST: No significant suspicious finding. Scatteredbenign-appearing calcifications are present. No significant change has occurred. LEFT BREAST: No significant suspicious finding. Scatteredbenign-appearing calcifications are present. No significant change has occurred. RECOMMENDATIONS: ROUTINE MAMMOGRAM AND CLINICAL EVALUATION IN 12 MONTHS. PLEASE NOTE: A NORMAL MAMMOGRAM DOES NOT EXCLUDE THE POSSIBILITY OFBREAST CANCER. A CLINICALLY SUSPICIOUS PALPABLE LUMP SHOULD BE BIOPSIED. Dictated by: Joe Dutton M.D. on 05/13/2024 at 11:56 Approved by: Joe Dutton M.D. on 05/13/2024 at 11:59 Dictated By: Joe Dutton M.D. Signed By:05/13/24 1200 DD/ 1159 TD/TT: Billing Specialist: Authorizing ProviderResult TypeResult StatusCorey Daniella DOCLINISYNC IMAGINGFinal Result * Pap Smear (02/15/2024 12:00 AM EDT)Specimen (Source)Anatomical Location / LateralityCollection Method / VolumeCollection TimeReceived TimeSwabCervical swab / Unknown Narrative Authorizing ProviderResult TypeResult StatusCorealeida Brewer DOLAB CYTOLOGY ORDERABLESFinal ResultPerforming OrganizationAddressCity/State/ZIP CodePhone Number EXTERNAL LAB * THINPREP PAP AND HPV MRNA E6/E7 W/RFL HPV 16,18/45 (02/27/2023 10:11 AM EDT) Narrative Authorizing ProviderResult TypeResult StatusAmy Brenda PALAB BLOOD ORDERABLES Final ResultPerforming OrganizationAddressCity/State/ZIP CodePhone Number EXTERNAL LAB from Last 3 Months or Most Recently Relevant to Health Maintenance Insurance Care Teams Team MemberRelationshipSpecialtyStart Date Prem Verdin MD [address] [place] [address] PCP - GeneralFamily Medicine8/7/23
--- OUTSIDE RECORDS SUMMARY | 2025-05-15 08:52 | XMS_ITS | Encounter Summary ---
Author Organization [facility] Address [address] [place] [address] Care Team Providers Care Hot Mix Operator Name Role Phone Prem Verdin MD Primary Care Provider [phone] Encounter Details DateTypeDepartmentCare Team (Latest Contact Info)Kjfbuuslpax06/08/2024Clinisync Result Encounter [facility] Department Unsolicited Dawn Brewer, DO [address] [place] [address] Social History Tobacco UseTypesPacks/DayYears UsedDateSmoking Tobacco: NeverAlcohol UseStandard Drinks/WeekCommentsYes0 (1 standard drink = 0.6 oz pure alcohol)1-2 drinks less than monthly in the past year, Caffeine intake: 1-2 cups per dayComments NoSex and Gender InformationValueDate RecordedSex Assigned at BirthNot on file Legal GzaWiizrf91/15/2023 7:34 PM EDTGender IdentityNot on fileSexual OrientationNot on filedocumented as of this encounter Plan of Treatment DateTypeDebaxter regional medical centerCare Team (Latest Contact Info)Fmshulnjirh48/25/2026 10:00 AM EDTProcedure Visit [facility] [place] [facility] [address] [place] [phone] Dawn Brewer DO [address] [place], [place] [id number] documented as of this encounter Procedures Procedure NamePriorityDate/TimeAssociated DiagnosisCommentsXR DEXA AXIAL QNQPRPHU88/08/2024 9:18 AM EST documented in this encounter Results * XR DEXA AXIAL SKELETON (05/13/2024 9:18 AM EST)Anatomical RegionLaterality ModalityOtherSpecimen (Source)Anatomical Location / LateralityCollection Method / VolumeCollection TimeReceived Time05/13/2024 9:18 AM EST Narrative 05/13/2024 9:21 AM EST [facility] ?[address] ? [place] [address] ?XRay Report ? Signed ? Patient: KATT ARCHER ?MR#: [id number] ?? : 1960 ?Acct:[id number] ?? Age/Sex: 63 / F ?ADM Date: 05/13/24 ?? Loc: MAMMO ? Attending Dr: Dawn Brewer D.O. ? Ordering Physician: Dawn Brewer D.O. ?? Date of Service: 05/13/24 ?? Procedure(s): XR DEXA axial skeleton ?? Accession Number(s): [id number] ? cc: Dawn Brewer D.O.; Prem Verdin M.D. ? [facility] ? [address] ? [place] [address] ? Patient Name: ?? KATT ARCHER ? MRN: [facility]:[id number] ? date: 1960 ?Sex: F ?? Assigned Patient Location: MAMMO ?? Current Patient Location: MAMMO ?? Accession/Order Number: [id number] ?? Exam Date: 05/13/2024 ??08:05 ?Report Date: 05/13/2024 ??09:18 ? At the request of: ?? DAWN ??DANIELLA ? Procedure: ??XR DEXA axial skeleton ? EXAMINATION: XR DEXA axial skeleton ? HISTORY: Postmenopausal State ? COMPARISON: DEXA bone densitometry 02/11/2022 ? TECHNIQUE: Dual-energy X-ray absorptiometry (DXA) was performed. ? FINDINGS: ?? SPINE ANALYSIS: ?? Average bone mineral density is 1.131 g/cm2. ?? T-score (standard deviation relative to young adult mean): -0.4 . ?? -1.1% change since prior study. ? HIP ANALYSIS: ?? Lowest bone mineral density is within the left femoral neck, 0.897 g/cm2. ?? T-score (standard deviation relative to young adult mean): -1.0 . ?? -1.4% change since prior study. ? XR/XR DEXA axial skeleton ?? IMPRESSION: ? World Health Organization Classification: Osteopenia - Moderate Fracture Risk ?? FRAX: Cannot calculate. ? Pharmacologic treatment recommendations ?? * No uniform recommendation applies to all patients. Management plans must be ?? individualized. ?? * Consider initiating pharmacologic treatment in postmenopausal women and men ?? >= 50 years of age who have the following: Primary fracture prevention: ?? * T-score <= - 2.5 at the femoral neck, total hip, lumbar spine, 33% radius (some uncertainty with existing data) by DXA. ?? * Low bone mass (osteopenia: T-score between - 1.0 and - 2.5) at the femoral ?? neck or total hip by DXA with a 10-year hip fracture risk >= 3% or a 10-year major osteoporosis-related fracture risk >= 20% (i.e., clinical vertebral, hip, ?? forearm, or proximal humerus) based on the US-adapted FRAXregistered model. ?? Secondary fracture prevention: ?? * Fracture of the hip or vertebra regardless of BMD [4, 5]. ?? * Fracture of proximal humerus, pelvis, or distal forearm in persons with low ?? bone mass (osteopenia: T-score between - 1.0 and - 2.5). The decision to treat ? should be individualized in persons with a fracture of the proximal humerus, ?? pelvis, or distal forearm who do not have osteopenia or low BMD [12, 13]. ?? Randy MS, Gucci SL, Rolf KL, Kya EM, Sheila KG, AJ, Nevin ?? ES. ?? The clinician's guide to prevention and treatment of osteoporosis. Osteoporos ?? Int. 2021;33(10):7578-0385. doi: 10.1007/k05034-766-33237-x. Ep2021 ? 28. Erratum in: Osteoporos Int. 2021Jan 30;: PMID: 31957414; PMCID: ?? [id number]. ? Electronically authenticated by: JOE ??STEPHANIE ?? Date: 05/13/2024 ??09:18 ? Dictated By: ?Joe Dutton M.D. ? Signed By: ?05/13/24920 ? DD/ 7 ? TD/TT: ? Last Sawyer: Procedure Note Radiology, Radiologist, - 05/13/[address] [address] XRay Report Signed Patient: KATT ARCHER MMR#: [id number] : 1960cct:[id number] Age/Sex: 63 / FADM Date: 05/13/24 Loc: MAMMO Attending Dr: Dawn Brewer D.O. Ordering Physician: Dawn Brewer D.O. Date of Service: 05/13/24 Procedure(s): XR DEXA axial skeleton Accession Number(s): [id number] cc: Dawn Brewer D.O.; Prem Verdin M.D. The [address] [address] Patient Name: KATT ARCHER MRN: [id number] date: 1960 Sex: F Assigned Patient Location: [facility] Current Patient Location: [facility] Accession/Order Number: [id number] Exam Date: 05/13/2024 08:05 Report Date: 05/13/2024 09:18 At the request of: DAWN BREWER Procedure: XR DEXA axial skeleton EXAMINATION: XR DEXA axial skeleton HISTORY: Postmenopausal State COMPARISON: DEXA bone densitometry 02/11/2022 TECHNIQUE: Dual-energy X-ray absorptiometry (DXA) was performed. FINDINGS: SPINE ANALYSIS: Average bone mineral density is 1.131 g/cm2. T-score (standard deviation relative to young adult mean): -0.4 . -1.1% change since prior study. HIP ANALYSIS: Lowest bone mineral density is within the left femoral neck, 0.897 g/cm2. T-score (standard deviation relative to young adult mean): -1.0 . -1.4% change since prior study. XR/XR DEXA axial skeleton IMPRESSION: World Health Organization Classification: Osteopenia - Moderate FractureRisk FRAX: Cannot calculate. Pharmacologic treatment recommendations * No uniform recommendation applies to all patients. Management plans mustbe individualized. * Consider initiating pharmacologic treatment in postmenopausal women andmen >= 50 years of age who have the following: Primary fracture prevention: * T-score <= - 2.5 at the femoral neck, total hip, lumbar spine, 33%radius (some uncertainty with existing data) by DXA. * Low bone mass (osteopenia: T-score between - 1.0 and - 2.5) at thefemoral neck or total hip by DXA with a 10-year hip fracture risk >= 3% or e45-qvsy major osteoporosis-related fracture risk >= 20% (i.e., clinical vertebral, hip, forearm, or proximal humerus) based on the US-adapted FRAXregisteredmodel. Secondary fracture prevention: * Fracture of the hip or vertebra regardless of BMD [4, 5]. * Fracture of proximal humerus, pelvis, or distal forearm in persons withlow bone mass (osteopenia: T-score between - 1.0 and - 2.5). The decision totreat should be individualized in persons with a fracture of the proximalhumerus, pelvis, or distal forearm who do not have osteopenia or low BMD [12, 13]. Randy MS, Gucci SL, Rolf KL, Kya EM, Sheila KG, AJ,Nevin ES. The clinician's guide to prevention and treatment of osteoporosis.Osteoporos Int. 2021;33(10):5181-2422. doi: 10.1007/s30922-379-00782-u. Ep. Erratum in: Osteoporos Int. 2021Jan 30;: PMID: 69339053; PMCID: [id number]. Electronically authenticated by: JOE DUTTON Date: 05/13/2024 09:18 Dictated By: Joe Dutton M.D. Signed By:05/13/24920 DD/ 7 TD/TT: Last Sawyer: Authorizing ProviderResult TypeResult StatusCorey Daniella DOCLINISYNC IMAGINGFinal Result documented in this encounter Visit Diagnoses Not on filedocumented in this encounter Care Teams Team MemberRelationshipSpecialtyStart DateEnd Date Prem Verdin MD [address] [place] [phone] PCP - GeneralFamily Medicine02/09/23documented as of this encounter
--- OUTSIDE RECORDS SUMMARY | 2025-05-15 08:52 | XMS_ITS | Encounter Summary ---
Author Organization [facility] Address [address] [facility] [place] [address] Care Team Providers Care Talent Acquisition Program Manager Name Role Phone Prem [place] MD Primary Care Provider [phone] Encounter Details DateTypeDepartmentCare Team (Latest Contact Info)Ihfqnefvtuq24/08/2024Clinisync Result Encounter [facility] External Department Unsolicited Abiodun Brewer, DO [address] [place] [place], [place] [address] Social History Tobacco UseTypesPacks/DayYears UsedDateSmoking Tobacco: NeverAlcohol UseStandard Drinks/WeekCommentsYes0 (1 standard drink = 0.6 oz pure alcohol)1-2 drinks less than monthly in the past year, Caffeine intake: 1-2 cups per dayComments NoSex and Gender InformationValueDate RecordedSex Assigned at BirthNot on file Legal BvsHgetig33/15/2023 7:34 PM EDTGender IdentityNot on fileSexual OrientationNot on filedocumented as of this encounter Plan of Treatment DateTypeDejohn l. mcc[facility]an memorial veterans hospitalCare Team (Latest Contact Info)Ckxxtnatmbr90/25/2026 10:00 AM EDTProcedure Visit [facility] [place] [facility] [address] [place] [phone] Abiodun Brewer DO [address] [place], [place] [phone] documented as of this encounter Procedures Procedure NamePriorityDate/TimeAssociated DiagnosisCommentsMM TOMOSYNTHESIS SCREENING BI05/13/2024 11:59 AM EST documented in this encounter Results * MM TOMOSYNTHESIS SCREENING BI (05/13/2024 11:59 AM EST)Anatomical Region LateralityModalityOtherSpecimen (Source)Anatomical Location / Laterality Collection Method / VolumeCollection TimeReceived Time05/13/2024 11:59 AM EST Narrative 05/13/2024 12:00 PM EST The [facility] ?[address] ? [place] [address] ? Mammography Report ? Signed ? Patient: KATT ARCHER ?MR#: [id number] ?? : 1960 ?Acct:[id number] ?? Age/Sex: 63 / F ?ADM Date: 05/13/24 ?? Loc: MAMMO ? Attending Dr: Abiodun Brewer D.O. ? Ordering Physician: Abiodun Brewer D.O. ?Results: ? Date of Service: 05/13/24 ?Follow Up: ? Procedure(s): MM tomosynthesis screening BI ?? Accession Number(s): [id number] ? cc: Abiodun Brewer D.O.; Prem [place]din M.D. ? Patient Name: ? KATT LACEY ? MR#: [id number] ? : 1960 ? Exam Date: 05/13/2024 [...] at age 65. ? LOCATION: ? [facility] ? BREAST COMPOSITION: ? There are scattered [...] 1200 ? DD/ 1159 ? TD/TT: ? Cooler Worker: Procedure Note Radiology, Radiologist, MD - 05/13/[address] [address] Mammography Report Signed Patient: KATT ARCHER [facility]#: [id number] : 9Acct:[id number] Age/Sex: 63 / FADM Date: 05/13/24 Loc: MAMMO Attending Dr: Abiodun Brewer D.O. Ordering Physician: Abiodun Brewer D.O.Results: Date of Service: 05/13/24Follow Up: Procedure(s): MM tomosynthesis screening BI Accession Number(s): [id number] cc: Abiodun Brewer D.O.; Prem Verdin M.D. Patient Name: KATT ARCHER MR#: [id number] : 1960 Exam Date: 05/13/2024 Ordering Doctor: DR Abiodun Brewer . RADIOLOGY REPORT PROCEDURE: MM TOMOSYNTHESIS SCREENING BI COMPARISON: MM TOMOSYNTHESIS SCREENING BI, 05/12/2023. MG MAMM LOTVCX9Z CARISSA CAD, 04/24/2022. MG MAMM SCREEN 3D CARISSA CAD, 03/29/2021. MG MAMMSCREEN CARISSA W CAD, 11/24/2018. INDICATIONS: Breast Cancer Screening Calculator Name NCI Breast Cancer Risk Assessment Tool 5 Year Breast Cancer Risk 1.80% Lifetime Breast Cancer Risk 6.90% Personal Breast Cancer No Personal Ovarian Cancer No Treatments None Family Cancers Brother with kidney cancer at age 67. LOCATION: The [facility] BREAST COMPOSITION: There are scattered areas of [...] M.D. Signed By:05/13/24 1200 DD/ 1159 TD/TT: Cooler Worker: Authorizing ProviderResult TypeResult StatusCorey Daniella DOCLINISYNC IMAGINGFinal Result documented in this encounter Visit Diagnoses Not on filedocumented in this encounter Care Teams Team MemberRelationshipSpecialtyStart DateEnd Date Prem [place] MD [address] [place] [phone] PCP - GeneralFamily Medicine02/09/23documented as of this encounter
--- OUTSIDE RECORDS SUMMARY | 2025-05-15 08:52 | XMS_ITS | Clinical Summary ---
Author Organization [facility] Address [address] [place] [address] Care Team Providers Care Director Of Rehabilitation And Wellness Name Role Phone Prem Verdin MD Primary Care Provider [phone] Allergies Active AllergyReactionsCriticalityNoted DateCommentsPioglitazoneItchingHigh 10/10/2021iclofenacNausea YvevFnqshc05/07/3361AzfmprmyzhHjkykDem65/07/2022ulfa GsvddgonpjnCtaakTwpe35/07/2022ulfamethoxazole-LrixnqcipbfpKgisZhd95/07/2023 BpnvdtvuXxxxdfjZkgilr47/07/2022 Medications MedicationSigDispense QuantityRefillsLast FilledStart DateEnd DateStatus Januvia 100 MG tablet Take 1 tablet by mouth daily.08/26/2021ctive metFORMIN 1000 MG tablet Take 1 tablet by mouth 2 times daily.Active losartan 100 MG tablet Take 1 tablet by mouth daily.Active gliMEPIride 4 MG tablet Take by mouth daily every morning. Takes 2 tablets every morningActive amoxicillin 500 MG capsule Prior to dental work.12/05/2021ctive SIMVASTATIN PO Take 20 mg by mouth every evening at 6 PM.Active aspirin EC [address] Take 1 table twice a day for 30days. This medication is for blood clot prevention. 60 tablet 03/04/2022ctive Additional Information Patient not taking.Reported on 05/04/2025 acetaminophen 325 MG tablet Take 2 tablets by mouth every 4 hours as needed for Mild Pain. 50 tablet ctive docusate 100 MG capsule Take 1 capsule by mouth 2 times daily. 60 capsule 03/04/2022ctive Additional Information Patient not taking.Reported on 05/04/2025 therapeutic multivitamin-minerals tablet Take 1 tablet by mouth at bedtime. 30 tablet 03/04/2022ctive Additional Information Patient not taking.Reported on 05/04/20[address] omepraz[address] capsule Take 1 capsule by mouth daily. 30 capsule 03/04/2022ctive Additional Information Patient not taking.Reported on 05/04/2025 meloxicam 7.5 MG tablet Take 1 tablet by mouth daily. Take with food. 30 tablet 03/04/2022ctive Additional Information Patient not taking.Reported on 05/04/2025 sucralfate 1 g tablet Take 1 tablet by mouth every 6 hours. 120 tablet 03/04/2022ctive Additional Information Patient not taking.Reported on 05/04/2025 oxyCODONE 5 MG tablet Indications:Acute postoperative pain of right kneeTake one to two tabs every 4-6 hours as needed for severe pain. Wean as tolerated 20 tablet 03/11/2022ctive Additional Information Patient not taking.Reported on 05/04/2025 naloxone 4 MG/0.1ML 1 spray by Nasal route once for 1 dose. [place] into the nose as directed. Call 911. If no response in 2 minutes use a new nasal spray in other nostril. Repeat until help arrives. 1 Each 03/11/2022ctive Additional Information Patient not taking.Reported on 05/04/2025 methylPREDNIsolone 4 MG Tab Therapy Pack tablet Take 1 tablet by mouth As directed. follow package directions 21 tablet 03/26/2022ctive Additional Information Patient not taking.Reported on 05/04/2025 meloxicam 7.5 MG tablet Take 1 tablet by mouth daily. 30 tablet ctive Additional Information Patient not taking.Reported on 05/04/[address] tablet DR Take 1 tablet by mouth daily.5Active Oyster Shell Calcium w/D 500-5 MG-MCG tablet Take by mouth daily.Active Jardiance 10 MG tablet Take 1 tablet by mouth daily.5Active Makelight InteractiveTouch Ultra Blue Test Strip strip Use 1 strip In Vitro once daily for 100 days Dx: E11.905Active Active Problems ProblemNoted DateDiagnosed Date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, initial pugdiaqlq82/30/2022 Encounters DateTypeDepartmentCare EtikIqdjdbstugq58/30/2025 9:30 AM EDTOffice Visit [facility] [address] [place] [id number] Kee Serrato MD Low back pain, unspecified back pain laterality, unspecified chronicity, unspecified whether sciatica present (Primary Dx)05/04/2025 8:30 AM EDTOffice Visit [address] [address] Rafael Hernandez, Right hip pain (Primary Dx); Loosening of prosthesis of right knee joint; Chronic pain of right knee03/30/2025 1:00 PM EDTOffice Visit [address] [address] Rafael Hernandez, Right hip pain (Primary Dx); Loosening of prosthesis of right knee joint02/27/2025 1:30 PM EDTOffice Visit [address] [address] Rafael Hernandez, Right hip pain (Primary Dx); Chronic pain of right knee; History of right knee joint replacementfrom Last 3 Months Social History Tobacco UseTypesPacks/DayYears UsedDateSmoking Tobacco: NeverSmokeless Tobacco: Never Tobacco Cessation:Counseling Given: Not Answered Alcohol UseStandard Drinks/WeekCommentsNot Currently0 (1 standard drink = 0.6 oz pure alcohol)CommentsUnknownSex and Gender InformationValueDate Recorded Sex Assigned at BirthNot on fileLegal SsjQkzvkp57/02/2022 2:13 PM ESTGender IdentityNot on fileSexual OrientationNot on file Last Filed Vital Signs Vital SignReadingTime TakenCommentsBlood Rbkovaah802/62003/05/2022 12:50 PM EDT Uilcf4984/31/2022 12:50 PM MMVTzxfblhxzdi59.4 ??C (97.6 ??F)05/04/2025 8:31 AM EDTRespiratory Stkr317603/05/2022 12:50 PM EDTOxygen Otbvqxmosl73%03/05/2022 12:50 PM EDTInhaled Oxygen Concentration--Jejmfr43.1 kg (189 lb 12.8 oz)05/04/2025 9:20 AM WJCOzqwzj994.6 cm (5' 4 )05/04/2025 9:20 AM EDTBody Mass Index32.58 05/04/2025 9:20 AM EDT Plan of Treatment DateTypeDepartmentCare Team (Latest Contact Info)Hqkwoavvjvn44/10/2026 10:00 AM ESTOffice Visit [facility] [address] [address] Gerardo Malik, DO [address] [place] [address] 08/17/2025 9:30 AM ESTOffice Visit [facility] [address] [place] [address] Rafael Hernandez, DO [address] [place] [address] Health MaintenanceDue DateLast DoneCommentsDEXA SCAN NJBZUWBYDL81/06/1961 HEPATITIS C VIRUS UFGVVLVBR76/06/5683FFSPJUN37/06/1959PNEUMOCOCCAL VACCINE SERIES (1 of 2 - PCV)1977TDAP (ADULT)1977CERVICAL CANCER SCREENING JDNRBPGHPV51/06/1980LIPID EANPSDKZZ81/06/1999COLORECTAL CANCER SCREENING VWGILGGEPD14/06/2004ZOSTER (SHINGLES) VACCINE (1 of 2)2008MAMMOGRAM SCREENING TOREGMPEJK92/20/202310/2COVID-19 VACCINE ( - 2024- season) /, 10/19/2020, 09/21/2020INFLUENZA VACCINE (#1)2025 06/10/2024, 04/24/2022, 05/24/2021, Additional history existsRSV VACCINE (1 - 1- dose 75+ series)2033HEP B VACCINEAged OutNo longer eligible based on patient's age to complete this topic Medical Devices ImplantedTypeAreaManufacturerDevice IdentifierShelf Expiration DateModel / Serial / LotPalacos R & G Bone Cement High-Viscosity With Gentamicin - [id number] Implanted:Qty: 1 on 03/04/2022 by Kee Serrato MD at [facility]: Knee 05/05/2025/ / [id number] Platform Insert Implanted:Qty: 1 on 03/04/2022 by Kee Serrato MD at [facility]: Knee BRXVHMG88/31/[id number] / / [id number] R [employer] Bone Cement High-Viscosity With Gentamicin - [id number] Implanted:Qty: 2 on 03/04/2022 by Kee Serrato MD at [facility]: Knee 07/05/2025/ / [id number] Distal Femoral Augment Implanted:Qty: 1 on 03/04/2022 by Kee Serrato MD at [facility]: Knee [id number] / / [id number] Crs Femoral Implanted:Qty: 1 on 03/04/2022 by Kee Serrato MD at [facility]: Knee ODISQOE07/30/[id number] / / [id number] Tibial Base Rotating Platform Implanted:Qty: 1 on 03/04/2022 by Kee Serrato MD at [facility]: Knee LCREOZQ15/31/[id number] / / [id number] Tibial Sleeve Porocoat Implanted:Qty: 1 on 03/04/2022 by Kee Serrato MD at [facility]: Knee UDZLIWD67/31/[id number] / / [id number] Pressfit Stem Implanted:Qty: 1 on 03/04/2022 by Kee Serrato MD at [facility]: Knee KMFWFTR50/31/[id number] / / [id number] Pressfit Stem Implanted:Qty: 1 on 03/04/2022 by Kee Serrato MD at [facility]: Knee EEHMVTS22/29/[id number] / / [id number] Distal Femoral Augment Implanted:Qty: 1 on 03/04/2022 by Kee Serrato MD at [facility]: Knee KZUMJLQ93/30/[id number] / / [id number] Procedures Procedure NamePriorityDate/TimeAssociated DiagnosisCommentsC REACTIVE PROTEIN Today02/27/2025 2:28 PM EDT Chronic pain of right knee History of right knee joint replacement SEDIMENTATION RATE, RGSXQCFKHFnksh09/25/2025 2:28 PM EDT Chronic pain of right knee History of right knee joint replacement ORDERS (SCAN)Awsmjhk6902/27/2025 2:25 PM EDTfrom Last 3 Months Results * C REACTIVE PROTEIN (02/27/2025 2:28 PM EDT)ComponentValueRef RangeTest Method Analysis TimePerformed AtPathologist SignatureC-Reactive Protein<5.00 - 10 MG/[address]ON[address]Specimen (Source) Anatomical Location / LateralityCollection Method / VolumeCollection Time Received IgrqHngls28/25/2025 2:28 PM EDT02/27/2025 2:29 PM EDT Narrative Authorizing ProviderResult TypeResult StatusJeremy L Riehm DOIMMUNOLOGY ORDERABLESFinal ResultPerforming OrganizationAddressCity/State/ZIP CodePhone Number [address] [address] * SEDIMENTATION RATE, AUTOMATED (02/27/2025 2:28 PM EDT)ComponentValueRef Range Test MethodAnalysis TimePerformed AtPathologist SignatureSEDIMENTATION RATE EECFYJEII86 - 30 MM/HR[address] Specimen (Source)Anatomical Location / LateralityCollection Method / Volume Collection TimeReceived StplWapdp37/25/2025 2:28 PM EDT02/27/2025 2:29 PM EDT Narrative Authorizing ProviderResult TypeResult StatusJeremy L Riehm DOHEMATOLOGY ORDERABLESFinal ResultPerforming OrganizationAddressUniversity [facility]/State/ZIP CodePhone Number [address] [address] * ORDERS (SCANNED) (02/27/2025 2:25 PM EDT)Anatomical RegionLateralityModality Other Narrative Authorizing ProviderResult TypeResult StatusJeremaleida Hernandez DOPROC - OPERATIVE Final Result from Last 3 Months Insurance Advance Directives For more information, please contact: [phone] (7:30 AM - 6PM [facility], Thursday-Thursday) * Full Code (Latest Code Status on File) Date ActivatedDate InactivatedComments03/04/2022 3:39 PM Care Teams Team MemberRelationshipSpecialtyStart DateEnd Date Prem Verdin MD PCP - GeneralFamily Medicine10/10/21
--- OUTSIDE RECORDS SUMMARY | 2025-05-15 08:54 | XMS_ITS | CCD ---
Author Organization [facility] CliniSypr Care Team Providers Care Gallery Assistant Name Role Phone Prem Garvey Primary Care Provider Unavailabl e Yehuda Camara Attending Provider Unavailable Prem Garvey MD Primary Care Provider [phone] Yehuda Camara Unavailable Jose Hwang II Unavailable [phone] Rick Stephenson Unavailable Prem Garvey MD Primary Care Provider [phone] Prem Garvey Primary Care Provider [phone] MD Kee Rivera Attending Provider [phone] BRIANNA ROMERO Admitting Unavailable MARE ., DR CRAIG Primary Care Unavailable BRIANNA ROMERO Attending Unavailable BRIANNA ROMERO Consulting Unavailable DAYANA DUTTA Consulting Unavailable HOY ., DR CRAIG Admitting Unavailable HOY ., DR CRAIG Attending Unavailable HOY ., DR CRAIG Primary Care Unavailable HOY ., DR CRAIG Admitting Unavailable HOY ., DR CRAIG Referring Unavailable HOY ., DR CRIAG Attending Unavailable HOY ., DR CRAIG Consulting [...] DANIELLA ., DR SEYMOUR Consulting Unavailable KEE RIVERA Admitting Unavailable MARE ., DR CRAIG Primary Care Unavailable KEE RIVERA Attending Unavailable KEE RIVERA Consulting Unavailable DANIELLA ., DR SEYMOUR Admitting Unavailable DANIELLA ., DR SEYMOUR Attending Unavailable SHAZIA, DR RENETTA Akhtar Consulting Unavailable MARE ., DR CRAIG Primary Care Unavailable DANIELLA ., DR SEYMOUR Consulting Unavailable Prem Garvey MD Primary Care Provider [phone] Prem Garvey MD Primary Care Provider [phone] Jose Hwang MD Attending Provider Prem Garvey MD Primary Care Provider [phone] Tan PINEDA Attending Unavailable Prem Garvey Referring Unavailable Prem Garvey MD Primary Care Provider [phone] Prem Garvey MD Primary Care Provider [phone] Kee Rivera MD Attending Provider [phone] Prem Garvey MD Primary Care Provider [phone] Prem Garvey MD Primary Care Provider [phone] Triny Armenta DO Attending Provider Triny Armenta Admitting Unavailable Triny Armenta Attending Unavailable MarePrem Primary Care Unavailable HoaleidaPrem M Primary Care Unavailable Jose Hwang II Admitting Unavailabl eric Hwang II, Jose Parnell Attending UnavailKee Quintanilla Admitting Unavailable Kee Rivera Attending Unavailable Mare Prem M Primary Care Unavailable Prem Garvey Primary Care Unavailable Jose Hwang II Admitting Unavailabl eric Hwang II, Jose Parnell Attending UnavailABIODUN Santoyo Attending Unavailable TAIWO RIBEIRO Attending Unavailable TAIWO RIBEIRO Referring Unavailable Prem Garvey MD Primary Care Provider [phone] PREM GARVEY Primary Care Unavailable SELF, SELF Referring Unavailable KEE RIVERA Attending Unavailable KEE RIVERA Referring Unavailable PREM GARVEY M Primary Care Unavailable KEE RIVERA Attending Unavailable TRINY ARMENTA Attending Unavailable PREM GARVEY M Primary Care Unavailable KEE RIVERA Referring Unavailable TRINY ARMENTA Attending Unavailable MICKMTRINY Referring Unavailable HOAleidaPREM M Primary Care Unavailable MICKMTRINY Attending Unavailable PREM GARVEY M Primary Care Unavailable SELF, SELF Referring Unavailable PREM GARVEY M Primary Care Unavailable TRINY ARMENTA Attending Unavailable KYLE ARMENTAY L Referring Unavailable PREM GARVEY Primary Care Unavailable TRINY ARMENTA L Attending Unavailable SELF, SELF Referring Unavailable PREM GARVEY M Primary Care Unavailable KYLE ARMENTAY L Attending Unavailable SELF, SELF Referring Unavailable FOSTER, KEE Attending Unavailable PREM GARVEY Primary Care Unavailable SELF, SELF Referring Unavailable SELF, SELF Referring Unavailable RPEM GARVEY M Primary Care Unavailable FOSTER, KEE Attending Unavailable FOSTER, KEE Referring Unavailable PREM GARVEY M Primary Care Unavailable FOSTER, KEE Attending Unavailable Unavailable Unavailable Unavailable Allergies Allergy ClassificationReported Allergen(s)Allergy TypeDate of OnsetReaction(s) Facility (20 sources)Diclofenac; Translations: [Diclofenac]Drug Cmsyznv96-26-2131Rcqxhb Only, GI intolerance, [facility] (20 sources)Lisinopril; Translations: [lisinopril]Drug Dohxctn29-81-8474Jvizs, [facility] (20 sources)pioglitazone; Translations: [pioglitazone]Drug Eraurcd14-41-4915 Itching, Rash, [facility] (11 sources)Sulfonamides (Antibiotic); Translations: [Sulfa (Sulfonamide Antibiotics)]Allergy to puktprwda62-87-6046UznwQhisteuifFort [facility] Hospital (20 sources)traMADol; Translations: [traMADol]Drug Mcilkek01-10-9538Qikiedm, rash, [facility] (20 sources)Sulfonamides (Antibiotic)Propensity to adverse reactions to drug 96-32-2926Cqyas, [facility] (16 sources)NisoldipineDrug Mroauee70-69-7460odfmPxosttkeiMercy Health [facility] (20 sources)Sulfamethoxazole / TrimethoprimDrug Adbisje58-21-3770KzcuEzqpr [place] [employer] Other (8 sources)Sulfonamides (Antibiotic)Propensity to adverse reactionsAutotaskSaint Joseph Hospital of Kirkwood [place] [employer] Other (6 sources)sulfaSALAzineDrug AllergyUnkSaint Joseph's Hospital [employer] Other (1 source)meloxicamDrug AllergyThe [facility] [place] [facility] (3 sources)pioglitazone; Translations: [Actos]Drug AllergyThe [facility] [place] [facility] (2 sources)Sulfonamides (Antibiotic)Drug allergy (disorder)The [facility] [place] [facility] (2 sources)traMADolDrug AllergyThe [facility] [place] Rep[facility] (9 sources)Sulfamethoxazole; Translations: [sulfamethoxazole]Drug Allergy 09-41-9627Nuhetue ReactionMercy Health St. [facility] (9 sources)Trimethoprim; Translations: [trimethoprim]Drug Jyiaeey90-88-[address] [facility] (1 source)Sulfamethoxazole / Trimethoprim; Translations: [Bactrim]Drug Allergy [facility] Repository (1 source)NisoldipineDrug Ylsbnlf57-11-8683IiflipfkdMercy Health St. [facility] Repository Medications Current Medications MedicationDrug Class(es)DatesSig (Normalized)Sig (Original)acetaminophen 325 mg oral tablet (20 sources)Start: 55-15-6100ewfl 2 tablets by mouth every four hours as needed acetaminophen 325 MG tablet Take 2 tablets by mouth every 4 hours as needed for Mild Pain. 50 tablet 1 03/04/2022 ActiveStart: 04-18-2019 End: 79-73-5079umfs 2 tablets by mouth every six hours as needed for pain Acetaminophen (Tylenol Extra Strength) 500 mg Tablet Discontinued 1000 MG PO Q6H as needed for PainOctober 2018 12:00am May 03, 2019 9:44amStart: 09-13-2018 End: 36-63-7942yzyg 2 tablets by mouth every six hours as needed for pain Acetaminophen (Tylenol Extra Strength) 500 mg Tablet Discontinued 1000 MG PO Q6H as needed for PainMarch 2018 12:00am September 28, 2018 11:29am acetaminophen (Tylenol) 500 MG tablet Take by mouth Activetake 1 tablet by mouth every four hoursTylenol 325 MG 1 tablet as needed Orally every 4 hrs Active amoxicillin 500 mg oral capsule (20 sources)Penicillin-class AntibacterialStart: 48-76-6961zqgtdeufyzy 500 MG capsule Prior to dental work. 12/05/2021 Activeaspirin 81 mg delayed release oral tablet (20 sources)Platelet Aggregation Inhibitor, Nonsteroidal Anti-inflammatory Drug Start: 00-58-7024lnybexa EC [address] Take 1 table twice a day for 30days. This medication is for blood clot prevention. 60 tablet 03/04/2022 ActiveStart: 09-28-2018 End: 83-34-5222zrby 1 tablet by mouth twice dailyAspirin 81 mg Tablet,Delayed Release (Dr/Ec) Discontinued 81 MG PO Twice daily 0 September 28, 2018 12:00am April 18, 2019 10:51amcalcium carbonate 1250 mg / cholecalciferol 200 unt oral tablet (8 sources)Vitamin DOyster Shell Calcium w/D 500-5 MG-MCG tablet Take by mouth daily. ActiveCalcium Carbonate-Vit D-Min (CALCIUM 1200 PO) (10 sources)Calcium Carbonate-Vit D-Min (CALCIUM 1200 PO) Take 1 capsule by mouth Daily ActiveCalcium Carbonate-Vit D-Min (CALCIUM 1200 PO) Take 1 capsule by mouth in the morning. ActiveCbd Salve (10 sources)Start: 88-35-0546kqbdu 125 mg topically twice dailyCbd Salve Active 125 MG Topical Twice daily April 18, 2019 10:58amStart: 82-82-2920clqhs 125 mg topically twice dailyStart: 67-49-6323zbrti 125 mg topically twice dailyCbd Salve Active 125 MG TOPICAL Twice daily April 17, 2019 11:00pm1 ml dexamethasone phosphate 4 mg/ml injection (5 sources)CorticosteroidStart: 66-64-0745Inedavkaennel Sodium Phosphate 4 MG/ML apply 1.5-2.5 ml as directed with PT up to 3 times weekly Iontophoresis Aug, ActiveStart: 61-70-8277Wlxdhsynfffvp Sodium Phosphate 4 MG/ML 1.5 ml to 2.5 ml Iontophoresis up to 3 weeks with therapy 2021 ActiveStart: 12-00-7042Rgyscewavguzj Sodium Phosphate 4 MG/ML 1.5 ml to 2.5 ml Iontophoresis up to 3 weeks with therapy 2021 Activedocusate sodium 100 mg oral capsule (20 sources)Start: 05-03-2019 End: 48-39-1796nyxi 1 capsule by mouth twice dailydocusate 100 MG capsule Take 1 capsule by mouth 2 times daily. 60 capsule 03/04/2022 Activeempagliflozin 10 mg oral tablet (20 sources)Sodium-Glucose Cotransporter 2 InhibitorStart: 23-03-6744xmpv 1 tablet by mouth once dailyJardiance 10 MG tablet Take 1 tablet by mouth daily. 01/24/2025 ActiveStart: 04-18-2019 End: 77-54-1771pivx 1 tablet by mouth once daily in the morningEmpagliflozin 25 mg tablet Discontinued 25 MG PO Every morning April 18, 2019 12:00am May 18, 2024 11:45amglimepiride 4 mg oral tablet (20 sources)SulfonylureaStart: 83-64-6108lkvc 2 tablets by mouth once daily in the morningStart: 80-99-6853mzll 8 mg by mouth once daily in the morning Glimepiride Active 8 MG Oral Every morning September 13, 2018 12:34pmGlimepiride 4 MG (Prior Auth: Rx Ref#:[id number]) Oral for 30 Activelosartan potassium 100 mg oral tablet (20 sources)Angiotensin 2 Receptor BlockerStart: 75-34-2811Rhtdq: 09-13-2018 End: 99-55-2638bkbt 1 tablet by mouth once daily in the morningLosartan 100 mg tablet Discontinued 100 MG PO Every morning September 13, 2018 12:00am May 11:47ammeloxicam 7.5 mg oral tablet (20 sources)Nonsteroidal Anti-inflammatory DrugStart: 62-35-8775apib 1 tablet by mouth once dailymeloxicam 7.5 MG tablet Take 1 tablet by mouth daily. 30 tablet 1 05/05/2022 ActiveStart: 60-60-5978ksyd 1 tablet by mouth once daily24 hr metFORMIN hydrochloride 500 mg extended release oral tablet (20 sources)BiguanideStart: 39-05-5739gcfi 1 tablet by mouth every twenty-four hoursStart: 35-18-8780Rgvyd: 46-41-0900vqoo 1000 mg by mouth twice daily Metformin Active 1000 MG Oral Twice daily September 13, 2018 12:34pmtake 1 tablet by mouth twice dailymetFORMIN 1000 MG tablet Take 1 tablet by mouth 2 times daily. ActivemetFORMIN HCl ER 500 MG (Prior Auth: Rx Ref#:[id number]) Oral for 90 ActivemethylPREDNISolone 4 mg oral tablet (17 sources)CorticosteroidStart: 28-12-9290hhvxwpDLCIMOwpciaa 4 MG Tab Therapy Pack tablet Take 1 tablet by mouth As directed. follow package directions 21 tablet 03/26/2022 Activenaloxone hydrochloride 40 mg/ml nasal spray (11 sources)Opioid AntagonistStart: 03-11-2022 End: 73-25-0055azkebbmm 4 MG/0.1ML 1 spray by Nasal route once for 1 dose. Sparks into the nose as directed. Call 911. If no response in 2 minutes use a new nasal spray in other nostril. Repeat until help arrives. 1Each 03/11/2022 Active omega-3 acid ethyl esters (nursing home) 1000 mg oral capsule (10 sources)Start: 75-59-2301eofg 1 capsule by mouth twice dailyomeprazole 20 mg delayed release oral capsule (20 sources)Proton Pump InhibitorStart: 32-16-9654xffe 1 capsule by mouth once dailyomeprazole [address] capsule Take 1 capsule by mouth daily. 30 capsule 03/04/2022 Activetake 1 capsule by mouth once dailyomeprazole [address] capsule Take 20 mg by mouth daily. 0 ActiveoxyCODONE hydrochloride 5 mg oral tablet (12 sources)Opioid AgonistStart: 67-40-0738afhVOJGUC 5 MG tablet Indications: Acute postoperative pain of right knee Take one to two tabs every 4-6 hours as needed for severe pain. Wean as tolerated 20 tablet 03/11/2022 Active pantoprazole 40 mg delayed release oral tablet (14 sources)Proton Pump InhibitorStart: 09-93-0889goox 1 tablet by mouth once dailyPantoprazole [address] tablet DR Take 1 tablet by mouth daily. 08/26/2024 ActivepredniSONE 10 mg oral tablet (2 sources)Start: 01-64-2610orgujtWQCW (Deltasone) 10 MG tablet Indications: Primary osteoarthritis of left foot , Pain in joint of left foot , Hallux valgus (acquired), left foot , Difficulty walking 1 tablet twice daily x 7 days; followed by 1 tablet daily as directed until complete 21 tablet 04/13/2025 Activesimvastatin 20 mg oral tablet (20 sources)HMG-CoA Reductase InhibitorStart: 02-41-0612epfi 1 tablet by mouth once daily at bedtimeSITagliptin 100 mg oral tablet (20 sources)Dipeptidyl Peptidase 4 InhibitorStart: 09-13-2018 End: 08-62-1973hcyo 1 tablet by mouth once dailyJanuvia 100 MG tablet Take 1 tablet by mouth daily. 08/26/2021 Activesucralfate 1000 mg oral tablet (20 sources)Aluminum ComplexStart: 41-33-5865nqit 1 tablet by mouth every six hourssucralfate 1 g tablet Take 1 tablet by mouth every 6 hours. 120 tablet 03/04/2022 Activetake 1 tablet by mouth every twelve hoursSucralfate 1 GM 1 tablet on an empty stomach Orally Twice a day Activetherapeutic multivitamin- minerals tablet (17 sources)Start: 03-18-8404upuk 1 tablet by mouth at bedtimetherapeutic multivitamin-minerals tablet Take 1 tablet by mouth at bedtime. 30 tablet 03/04/2022 ActiveStart: 39-45-2070yemn 1 tablet by mouth at bedtimetherapeutic multivitamin-minerals tablet Take 1 tablet by mouth at bedtime. 30 tablet 0 03/04/2022 Active Completed/Discontinued Medications MedicationDrug Class(es)DatesSig (Normalized)Sig (Original)acetaminophen 325 mg / oxyCODONE hydrochloride 5 mg oral tablet (20 sources)Opioid AgonistStart: 05-03-2019 End: 85-95-9654qkoj 1 tablet by mouth every four to six hours as needed for pain Oxycodone-Acetaminophen (Percocet) 5-325 mg tablet Discontinued 1 - 2 TAB PO EVERY 4-6 HOURS as needed for pain 30 May 03, 2019 May 18, 2024 11:46amStart: 09-22-2018 End: 49-86-2527jrqp 1 tablet by mouth every four to six hours as needed for pain Oxycodone-Acetaminophen (Percocet) 5-325 mg tablet Discontinued 1 - 2 TAB PO EVERY 4-6 HOURS as needed for pain 30 September 28, 2018 October 11, 2018 12:00am October 12, 2018 12:02ambisacodyl 5 mg delayed release oral tablet (9 sources)Stimulant LaxativeStart: 09-28-2018 End: 72-36-4670xngm 2 tablets by mouth once as needed for constipationBisacodyl 5 mg Tablet,Delayed Release (Dr/Ec) Discontinued 10 MG PO Once as needed for Constipation0 September 28, 2018 12:00am April 18, 2019 10:56amStart: 09-28-2018 End: 15-02-3893lmll 10 mg by mouth onceBisacodyl Discontinued 10 MG PO Once 0 September 27, 2018 11:00pm April 18, 2019 9:56amcholecalciferol 0.05 mg oral tablet (12 sources)Vitamin DStart: 04-18-2019 End: 76-37-6496wlfq 1 tablet by mouth once dailyCholecalciferol (Vitamin D3) (Vitamin D3) 2,000 unit Tablet Discontinued 2000 UNIT PO Daily 2018 12:00am May 18, 2024 11:45amtake 1 tablet by mouth every twenty-four hoursVitamin D 50 MCG (2000 UT) 1 tablet Orally Once a day Activediclofenac sodium 0.01 mg/mg topical gel (20 sources)Nonsteroidal Anti-inflammatory DrugStart: 75-32-5517Gttjgtjvho Sodium 1 % 1-2 grams to effected area Transdermal Twice a day for 30 day(s) November,Not-TakingStart: 99-23-3723ebuu 1 tablet by mouth every twelve hours Diclofenac Sodium 75 MG 1 tablet with food or milk Orally Twice a day for 30 day(s) November, Not-TakingStart: 09-13-2018 End: 26-67-5599jurj 1 tablet by mouth twice dailyDiclofenac Sodium 75 mg tablet,delayed release (DR/EC) Discontinued 75 MG PO Twice daily September 13, 2018 12:00am September 28, 2018 11:29amhydrOXYzine pamoate 50 mg oral capsule (20 sources)AntihistamineStart: 05-03-2019 End: 73-54-8173pfmn 1 capsule by mouth every three hours as needed for muscle spasmsHydroxyzine Pamoate 25 mg Capsule Discontinued 25 MG PO Q3H as needed for Muscle Spasm 0 May 03, 2019 12:00am May 18, 2024 11:45amStart: 05-03-2019 End: 25-13-7227gdqi 1 capsule by mouth every three hours as needed for muscle spasmsHydroxyzine Pamoate 50 mg Capsule Discontinued 50 MG PO Q3H as needed for Muscle Spasm 0 May 03, 2019 12:00am May 18, 2024 11:45amStart: 09-28-2018 End: 47-42-7936fwzd 1 capsule by mouth every four hoursHydroxyzine Pamoate (Vistaril) 25 mg capsule Discontinued 25 MG PO Q4H September 28, 2018 12:00am O ctober 2018 10:56amStart: 89-74-4538pgow 1 capsule by mouth every eight hoursVistaril 25 MG 1 capsule as needed Orally every 8 hrs for 7 days DO NOT FILL UNTIL 09/26/2018 Sep, Not-Miyeot27 ml lidocaine hydrochloride 10 mg/ml injection (4 sources)Antiarrhythmic, Amide Local AnestheticStart: 01-26-2025 End: 49-29-3375Tbmsmtynh (XYLOCAINE) 10 mg/mL injection 3 mLStart: 01-26-2025 End: mL, Intra-articular, ONCE NEEDED, 1 dose, Starting on Slime 01/26/25 at 0800, Until Slime 01/26/25 at 0800Start: 10-25-2021 End: 92-57-0191afnyqfeha (XYLOCAINE) 10 mg/mL injection 3 mLrivaroxaban 10 mg oral tablet (10 sources)Factor Xa InhibitorStart: 05-03-2019 End: 34-76-8460uuqf 1 tablet by mouth once dailyRivaroxaban (Xarelto) 10 mg Tablet Discontinued 10 MG PO DAILY@1700 0 May 03, 2019 12:00am May 18, 2024 11:46am1 ml triamcinolone acetonide 40 mg/ml injection (6 sources)CorticosteroidStart: 01-26-2025 End: 54-26-5502hnctvejsatydr (KENALOG-40) injection 1 mLStart: 01-26-2025 End: mL, Intra-articular, ONCE NEEDED, 1 dose, Starting on Slime 01/26/25 at 0800, Until Slime 01/26/25 at 0800Start: 01-16-2022 End: 91-14-5358ejbwtomxbugfd (KENALOG-40) injection 1 mLStart: 10-25-2021 End: 67-12-7246fttjtlwahiloa (KENALOG-40) injection 1 mL Problems Active Problems Problem ClassificationProblemDateDocumented DateEpisodic/ChronicAcquired foot deformities (2 sources)Acquired left hallux valgus; Translations: [Hallux valgus (acquired), left foot]65-57-8064GsjdvgeGhvnhjuc of urinary tract (1 source)Personal history of urinary calculi; Translations: [PERSONAL HISTORY OF URINARY CALCULI]Onset: 96-00-0523EqcynhziBzdmdybqua heart failure; nonhypertensive (1 source)Unspecified diastolic (congestive) heart failure; Translations: [UNSPECIFIED DIASTOLIC HEART FAILURE]Onset: 45-92-5863PvrrtfjSbcpnyik mellitus without complication (1 source)Type 2 diabetes mellitus without complications; Translations: [TYPE 2 DM WITHOUT COMPLICATIONS]Onset: 47-96-5549TrwtuxdMfoezswbo of lipid metabolism (2 sources)Pure hypercholesterolemia, unspecified; Translations: [Hyperlipidemia, unspecified]Onset: 82-54-4829QbnuhkhNwzpvihgv hypertension (1 source)Essential (primary) hypertension; Translations: [ESSENTIAL PRIMARY HYPERTENSION]Onset: 71-44-7015GsovegjFujdfhcypwgf with complications and secondary hypertension (1 source)Hypertensive heart disease with heart failure; Translations: [HTN HEART DISEASE W/HEART FAIL]Onset: 41-35-7001ZxiiesqJrfnayudkii deficiencies (4 sources)Vitamin D deficiency, unspecified; Translations: [VITAMIN D DEFICIENCY UNSPECIFIED]Onset: 62-18-2205RillxaxDgbgvgqahggtei (20 sources)Osteoarthritis of right hip joint; Translations: [Unilateral primary osteoarthritis, right hip]Onset: 04-09-2021 Resolved: 85-44-3441FoeqmyaBbngbrt on above:Problem List clean-up per request of Phys. 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 EHR CmteOther connective tissue disease (10 sources)Presence of right artificial knee joint; Translations: [Knee joint replacement]Onset: 04-09-2021 Resolved: 97-09-6245UeegqfoZvymy connective tissue disease (3 sources)Presence of left artificial knee joint; Translations: [Status post total left knee replacement Z96.652]Onset: 04-09-2021 Resolved: 78-25-0650OifetakMxwzf connective tissue disease (4 sources)History of right total knee replacement; Translations: [Presence of right artificial knee joint]ChronicOther connective tissue disease (6 sources)History of revision of right total knee arthroplasty; Translations: [Presence of right artificial knee joint]91-97-4525CcpmbytHaxah connective tissue disease (5 sources)Trochanteric bursitis; Translations: [Trochanteric bursitis, right hip]73-60-9439BitlyttqZxhzn connective tissue disease (3 sources)Trochanteric bursitis, right hip; Translations: [Enthesopathy of hip region]32-18-0645SsfopnnaKwvtq nervous system disorders (3 sources)Chronic pain; Translations: [Other chronic pain]44-16-5762Fsfsjmf Other nervous system disorders (1 source)Other chronic pain; Translations: [Other chronic pain]07-18-2024 ChronicOther nervous system disorders (2 sources)Difficulty walking; Translations: [Difficulty in walking, not elsewhere classified]61-72-3078EevdvmgHuktl non-traumatic joint disorders (2 sources)Pain in right hip joint; Translations: [Pain in right hip]Episodic Other non-traumatic joint disorders (18 sources)Hip pain; Translations: [Pain in right hip]15-05-8927VkgkujaaPewor non-traumatic joint disorders (2 sources)Pain of joint of left foot; Translations: [Pain in left ankle and joints of left foot]03-32-3833CiugbtyvZbkti screening for suspected conditions (not mental disorders or infectious disease) (14 sources)Encounter for screening mammogram for malignant neoplasm of breast; Translations: [Encounter for screening for osteoporosis]Onset: 02-06-2022 EpisodicResidual codes; unclassified (1 source)Acquired absence of ovaries, unilateral; Translations: [ACQUIRED ABSENCE OVARIES UNILATERAL]Onset: 55-81-6947SewtckkgFvpaarfopzg; intervertebral disc disorders; other back problems (2 sources)Low back pain; Translations: [Low back pain, unspecified back pain laterality, unspecified chronicity, unspecified whether sciatica present] 46-89-4307VyipsvbfEojielrrnkro (1 source)LOW BACK PAIN, UNSPECIFIED; Translations: [LOW BACK PAIN, UNSPECIFIED] Onset: 83-60-2331Yrcpslzrndtq (1 source)Right knee pain, unspecified pvtejrnxhi91-80-5318Knymwznacjsf (1 source)Chronic pain of right ohzv02-58-9458 Past or Other Problems Problem ClassificationProblemDateDocumented DateEpisodic/ChronicComplication of device; implant or graft (20 sources)Joint pain; Translations: [Pain due to internal orthopedic prosthetic devices, implants and grafts,initial encounter]Onset: 03-04-2022 EpisodicDeficiency and other anemia (1 source)Anemia, unspecified; Translations: [ANEMIA UNSPECIFIED]Onset: 03-22-7881EpywzrqpNbbyhuyw mellitus without complication (1 source)Other abnormal glucose; Translations: [OTHER ABNORMAL GLUCOSE]Onset: 41-79-5918GfzndoyhMhuxvhqotajid and screening for infectious disease (1 source)Encounter for screening for human papillomavirus (HPV); Translations: [ENC SCREENING HUMAN PAPILLOMAVIRUS]Onset: 15-05-8233PtukoorwVfbwk bone disease and musculoskeletal deformities (1 source)Other specified disorders of bone density and structure, other site; Translations: [OTH D/O BONE DEN STRUCT OTH SITE]Onset: 50-82-5754SfwadmunLugnl bone disease and musculoskeletal deformities (12 sources)Osteopenia; Translations: [Other specified disorders of bone density and structure, unspecified site]Onset: 371865-80-4668SejcjrmqRquaa connective tissue disease (1 source)Other bursitis of knee, right knee; Translations: [Other bursitis of knee, right knee]Onset: 62-38-9716VmnboefdLyuoh non-traumatic joint disorders (15 sources)Pain in right knee; Translations: [Pain in joint, lower leg]Onset: 91-68-7183PuoeuripKafnp non-traumatic joint disorders (9 sources)Pain in right hip; Translations: [Pain in joint, pelvic region and thigh]Onset: [id number] codes; unclassified (1 source)Family history of malignant neoplasm of kidney; Translations: [FAM HX MALIGNANT NEOPLASM KIDNEY]Onset: 92-33-8222RxzrhowyPvrzovfm codes; unclassified (1 source)Edema, unspecified; Translations: [EDEMA UNSPECIFIED]Onset: 11-15-2021 EpisodicUnclassified (2 sources)History of revision of right total knee lerwoszgtybm02-88-8711 Unclassified (1 source)Loosening of prosthesis of right knee fvsex71-95-8371 Results Test NameValueInterpretationReference RangeFacilityXR Foot - left 3 Viewson 25-70-8370Kdouzda Result: 3 views left foot: Weight-bearing: DP, oblique, lateral: 04/13/2025: Unremarkable for acute osseous or joint pathology. Unremarkable for fracture or stress fracture changes. 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 Metatarsal parabola acceptable. HAV deformity, consistent with clinical findings; with lateral deviation of the 1st MTP joint. Fairly extensive arthritic changes of the 2nd TMT joint.[facility] HealthcareRad[facility] Study observation (narrative)[facility] bone 3 phaseon 95-28-7421XZ bone 3 phase[facility] [place] [address] [place] [address] Nuclear Medicine Report Signed Patient: Katt Rahman MR#: [id number] : 1960 Acct:[id number] Age/Sex: 64 / F ADM Date: 03/20/25 Loc: [place] Room: Type: [facility] Attending Dr: Triny Armenta DO Copies to: Edilberto Gregory DO Ordering Provider: Triny Armenta DO Date of Service: 03/20/25 UT/UT bone 3 phase: M25.561,G89.29,Z96.651 Nuclear medicine 3 phase bone scan TECHNIQUE: 24.0mCi of technetium 99m labeled MDP was administered. Planar imaging obtained in multiple planes. COMPARISON: 12/12/2021, 05/18/2024. This demonstrates a right total knee arthroplasty. The left knee arthroplasty present HISTORY: Right knee arthroplasty. Suspicion for loosening. Findings: No significant hyperemia identified with blood flow imaging. Decreased uptake bilateral knee arthroplasties with immediate imaging consistent with knee replacement. Mild diffuse uptake surrounds the right knee with immediate imaging. Focal regions of uptake adjacent to the tibial plate and distal femoral components identified. No uptake of the stems. NM/NM bone 3 phase IMPRESSION: Adjacent delayed uptake adjacent to the distal right femoral and tibial plate components. The findings suggest regions of the loosening. Impression dictated by: Edilberto Castillo M.D. 03/20/2025 3:32 PM Dictation Location: [facility]- Transcribed By: [facility] 03/20/25 1532 Dictated By: Edilberto Castillo DO 03/20/25 1526 Signed By: 03/20/25 1532[facility]ician GroupC REACTIVE PROTEINon 02-27-2025 CRP [Mass/Vol]MG/L0 - 10 MG/[facility] SystemCRP [Mass/Vol]mg/LNormal0-10AHampton Behavioral Health CenterComment on above:Performed By: #### ESR, CREACT #### Testing performed at [address] [address]GHWzh 32-65-5218RQI (Bld) [Velocity]4 mm/hNormal0-30[facility]on TownshipComment on above:Performed By: #### ESR, CREACT #### Testing performed at [address] [address]WAQWFTOOBIJQB RATE, AUTOMATEDon 91-00-2730SZF (Bld) [Velocity]4 mm/[facility] SystemLARGE JOINT/BURSA INJECTION AND/OR ASPIRATION: R hip jointon 00-24-9389EezehgwiAbhijeet Lin ATC 01/26/2025 8:44 AM LARGE JOINT/BURSA INJECTION AND/OR ASPIRATION: R hip joint Date/Time: 01/26/2025 8:00 AM Performed by: Triny Armenta DO Authorized by: Triny Armenta DO Supporting Documentation Indications: pain Procedure Details: Location: hip - R hip joint Local Anesthetic: lidocaine 1% Guidance: ultrasound Correct final needle position was confirmed with direct visualization under real-time ultrasound Ultrasound probe size: 4 mHz curvilinear Images were saved electronically. Needle size: 22 G Medication Verification: I have personally verified and performed the final check of the medication(s) used in this procedure prior to administration. The following items were included during the verification process for medication(s) administered: drug name, strength, volume, expiration, physical integrity and appearance of the medication(s). Medications administered: 3 mL Lidocaine 10 mg/mL; 1 mL triamcinolone 40 MG/ML Patient tolerance: patient tolerated the procedure well with no immediate complications Pre-Procedure Details The attending physician was present for the entire procedure. Consent: Consent was obtained prior to the [...] sterile fashion. The patient was prepped with Chloraprep.[facility] HospitalFlash Auto Detailing [facility] Radiology Study observation (narrative)[facility] HospitalUS Unspecified body regionon 78-57-8139Dnlmi Storage This order is to facilitate the storage of the image.[facility] Basophils Auto (Bld) [#/Vol]Ordered By: Jose Hwang on 49-24-9813Jduhcakfl (Bld) [#/Vol]Automated basophil count0.0-0.2FC[facility] Basophils/100 WBC Auto (Bld)Ordered By: Jose Hwang on 07-07-2024 Basophils/100 WBC (Bld)Automated basophil %.[facility] HospitalC reactive protein [Mass/volume] in Serum or PlasmaOrdered By: Jose Hwang on 91-15-8001DXW [Mass/Vol]C reactive protein [Mass/volume] in Serum or Plasma 0.0-0.5FCleveland Clinic Lutheran HospitalC-Reactive Proteinon 62-62-4616BHF [Mass/Vol]mg/LNormal0.0-0.5The [facility] Physician GroupComment on above:Result Comment: PERFORMED BY: [place] [address] [place] [address] PATHOLOGIST DRUG ABUSE TREATMENT SPECIALIST GOSIA DE DIOS M.D.Performed By: #### ESR, CRP, DDIMER, CBC #### [place] [address] USAComplete Blood Count Auto Diffon 33-78-4658Rysucrixp (Bld) [#/Vol]0.0 10*3/uLNormal0.0-0.2The [facility] Physician GroupComment on above: Performed By: #### ESR, CRP, DDIMER, CBC #### [place] [address] USABasophils/100 WBC (Bld)0.5 %Normal.The [facility] Physician GroupComment on above:Performed By: #### ESR, CRP, DDIMER, CBC #### [place] [address] USAEosinophils (Bld) [#/Vol]0.1 10*3/uLNormal0.0-0.45The [facility] Physician GroupComment on above:Performed By: #### ESR, CRP, DDIMER, CBC #### [place] [address] USAEosinophils/100 WBC (Bld)1.6 %Normal.The [facility] Physician GroupComment on above:Performed By: #### ESR, CRP, DDIMER, CBC #### [place] [address] USAErythrocyte distribution width (RBC) [Ratio]13.0 %Normal 11.9-15.3The [facility] Physician GroupComment on above:Performed By: #### ESR, CRP, DDIMER, CBC #### [place] [address] USAHematocrit (Bld) [Volume fraction]39.4 %Dlkrhv49.0-46.4The [facility] Physician GroupComment on above:Performed By: #### ESR, CRP, DDIMER, CBC #### [place] [address] USAHemoglobin (Bld) [Mass/Vol]13.2 g/zPTusowo38.8-15.4The [facility] Physician GroupComment on above:Performed By: #### ESR, CRP, DDIMER, CBC #### [place] [address] USALymphocytes (Bld) [#/Vol]1.5 10*3/uLNormal1.00-4.8The [facility] Physician GroupComment on above:Performed By: #### ESR, CRP, DDIMER, CBC #### [place] [address] USALymphocytes/100 WBC (Bld)24.2 %Normal.The [facility] Physician GroupComment on above:Performed By: #### ESR, CRP, DDIMER, CBC #### [address] (RBC) [Entitic mass]30.6 fiRrqdae22.7-34.3The [facility] Physician GroupComment on above:Performed By: #### ESR, CRP, DDIMER, CBC #### [address] (RBC) [Entitic vol]91.3 bPWixqtk19-342Qcz [facility] Physician GroupComment on above:Performed By: #### ESR, CRP, DDIMER, CBC #### [place] [address] USAMean Corpuscular HGB Conc33.5 g/jSTziabp55.0-35.0The [facility] Physician GroupComment on above:Performed By: #### ESR, CRP, DDIMER, CBC #### [place] [address] USAMonocytes (Bld) [#/Vol]0.5 10*3/uLNormal0.0-0.8The [facility] Physician GroupComment on above:Performed By: #### ESR, CRP, DDIMER, CBC #### [place] [address] USAMonocytes/100 WBC (Bld)7.3 %Normal.The [facility] Physician GroupComment on above:Performed By: #### ESR, CRP, DDIMER, CBC #### [facility] [address] [place] [address] USANeutrophils (Bld) [#/Vol]4.2 10*3/uLNormal1.8-7.7The [facility] Physician GroupComment on above:Performed By: #### ESR, CRP, DDIMER, CBC #### [facility] [address] [place] [address] USANeutrophils/100 WBC (Bld)66.4 %Normal.The [facility] Physician GroupComment on above:Performed By: #### ESR, CRP, DDIMER, CBC #### [facility] [address] [place] [address] USANRBC%0.1 /100{WBC}Normal0-0.5The [facility] Comment on above:Performed By: #### ESR, CRP, DDIMER, CBC #### [facility] [address] [place] [address] USAPlatelet mean volume (Bld) [Entitic vol]7.3 fLNormal 6.3-10.7The [facility] Physician GroupComment on above:Performed By: #### ESR, CRP, DDIMER, CBC #### [place] [address] USAPlatelets (Bld) [#/Vol]301 10*3/fRCjptsk355-230Klr [facility] Physician GroupComment on above:Performed By: #### ESR, CRP, DDIMER, CBC #### [place] [address] USARBC (Bld) [#/Vol]4.31 10*6/uLNormal3.60-5.00The [facility] Physician GroupComment on above:Performed By: #### ESR, CRP, DDIMER, CBC #### [place] [address] USAWBC (Bld) [#/Vol]6.3 10*3/uLNormal3.8-11.6The [facility] Physician GroupComment on above:Performed By: #### ESR, CRP, DDIMER, CBC #### [facility] [address] [place] [address] USAD-Dimer High Sensitivityon 07-58-9165R-Dimer High Ctuqxykueyx287 ng/mLHigh0-243The [facility] Physician GroupComment on above: Result Comment: The reference range [...] coagulation studies. Please contact the laboratory at [phone] for redraw instructions. PERFORMED BY: [place] [id number] PATHOLOGIST DRUG ABUSE TREATMENT SPECIALIST GOSIA DE DIOS M.D.Performed By: #### ESR, CRP, DDIMER, CBC #### [address] [address] USAEosinophils Auto (Bld) [#/Vol]Ordered By: Jose Hwang on 13-14-1290Okcmndionlb (Bld) [#/Vol]Automated eosinophil count0.0-0.[address] [facility] HospitalEosinophils/100 WBC Auto (Bld)Ordered By: Jose Hwang on 06-60-1022Qgvgyzvinnq/100 WBC (Bld)Automated eosinophil %. [facility] Board[facility] HospitalErythrocyte Sedimentation Rateon 14-95-1845PNG (Bld) [Velocity]9 mm/hNormal0-29The [facility] Physician GroupComment on above: Result Comment: PERFORMED BY: [address] [address] PATHOLOGIST DRUG ABUSE TREATMENT SPECIALIST GOSIA DE DIOS M.D.Performed By: #### ESR, CRP, DDIMER, CBC #### [facility] [address] StreetErythrocyte distribution width Auto (RBC) [Ratio]Ordered By: Jose Hwang on 83-59-4530Qgogedlrcvh distribution width (RBC) [Ratio] Erythrocyte distribution width [Ratio] by Automated count11.9-15.3FCleveland Clinic Lutheran HospitalErythrocyte sedimentation rate by Photometric method Ordered By: Jose Hwang on 85-27-1251WJA Photometric method (Bld) [Velocity] Erythrocyte sedimentation rate by Photometric method0-29[facility] HospitalFibrin D-dimer [Presence] in Platelet poor plasma by Latex agglutinationOrdered By: Jose Hwang on 38-12-1122Kgzubn D-dimer LA Ql (PPP) Fibrin D-dimer [Presence] in Platelet poor plasma by Latex agglutinationHigh 0-243[facility] Board[facility] HospitalComment on above:The reference range for D-dimer is <243 ng/mL D-dimer units.D-dimer results must be used in conjunction with a clinicalpretest probability (PTP) assessment model for deep veinthrombosis (DVT) and pulmonary embolism (PE). Results <230ng/mL d-dimer units can be used as a negative predictor inpatients with low or moderate probability for DVT/PE.Results above the exclusion threshold of 230 ng/ml D- dimerunits for DVT/PE may indicate the need for furtherdiagnostic testing.D- Dimer can be increased in hospitalized patients due toco-morbid conditions.A hematocrit value greater than 55% may lead to inaccurate results in coagulation testing. Patients having hematocrit values >55% require a special collection tube for coagulation studies. Please contact the laboratory at [phone] for redraw instructions.Hematocrit Auto (Bld) [Volume fraction]Ordered By: Jose Hwang on 23-71-5684Abebjwpskr (Bld) [Volume fraction]Hematocrit [Volume Fraction] of Blood by Automated count34.0-46.4FC[facility] Hemoglobin [Mass/volume] in BloodOrdered By: Jose Hwang on 07-07-2024 Hemoglobin (Bld) [Mass/Vol]Hemoglobin [Mass/volume] in Blood11.8-15.4FCleveland [facility] Lutheran HospitalLeukocytes [#/volume] corrected for nucleated erythrocytes in Blood by Automated counOrdered By: Jose Hwang on 07-07-2024 WBC corrected for nucl RBC Auto (Bld) [#/Vol]Leukocytes [#/volume] corrected for nucleated erythrocytes in Blood by Automated coun3.8-11.6FCleveland [facility] Lutheran HospitalLymphocytes Auto (Bld) [#/Vol]Ordered By: Jose Hwang on 42-71-4552Qkqrvldiocw (Bld) [#/Vol]Lymphocytes [#/volume] in Blood by Automated count1.00-4.8[facility] HospitalLymphocytes/100 WBC Auto (Bld) Ordered By: Jose Hwang on 89-92-0267Wdkdwozsezq/100 WBC (Bld) Lymphocytes/100 leukocytes in Blood by Automated count.[facility] HospitalH Auto (RBC) [Entitic mass]Ordered By: Jose Hwang on 11-40-5578EXH (RBC) [Entitic mass]MCH [Entitic mass] by Automated count24.7-34.[address] [facility] Board[facility] HospitalMCHC Auto (RBC) [Mass/Vol]Ordered By: Jose Hwang on 56-60-0055JCDM (RBC) [Mass/Vol]MCHC [Mass/volume] by Automated count 32.0-35.0[facility] HospitalMCV Auto (RBC) [Entitic vol]Ordered By: Jose Hwang on 90-80-9253SQK (RBC) [Entitic vol]MCV [Entitic volume] by Automated magil53-791BtysocqmmMercy Health St. Elizabeth Boardman HospitalMonocytes Auto (Bld) [#/Vol]Ordered By: Jose Hwang on 55-02-7729Cdgylavys (Bld) [#/Vol]Automated blood monocyte count0.0-0.8[facility] HospitalMonocytes/100 WBC Auto (Bld)Ordered By: Jose Hwang on 26-67-6857Ldsknynib/100 WBC (Bld) Automated monocyte %.[facility] HospitalNeutrophils Auto (Bld) [#/Vol]Ordered By: Jose Hwang on 15-35-9511Onovtnvokst (Bld) [#/Vol] Neutrophils [#/volume] in Blood by Automated count1.8-7.7FCleveland Clinic Lutheran HospitalNeutrophils/100 WBC Auto (Bld)Ordered By: Jose Hwang on 99-11-6699Eqmekvghraw/100 WBC (Bld)Automated neutrophil %.[facility] HospitalNucleated erythrocytes [Presence] in Blood by Automated count Ordered By: Jose Hwang on 26-19-4336Rlvypkkaj RBC Auto Ql (Bld)Nucleated erythrocytes [Presence] in Blood by Automated count0-0.5FCleveland Clinic Lutheran HospitalPlatelet mean volume Auto (Bld) [Entitic vol]Ordered By: Jose Hwang on 03-64-1705Zjifvsek mean volume (Bld) [Entitic vol]Platelet mean volume [Entitic volume] in Blood by Automated count6.3-10.7FCleveland Clinic Lutheran HospitalPlatelets Auto (Bld) [#/Vol]Ordered By: Jose Hwang on 97-04-9214Bpcvlyphc (Bld) [#/Vol]Platelets [#/volume] in Blood by Automated ixqjv913-852StoyrloanMercy Health St. Elizabeth Boardman HospitalRBC Auto (Bld) [#/Vol]Ordered By: Jose Hwang on 90-53-0383RER (Bld) [#/Vol]Erythrocytes [#/volume] in Blood by Automated count3.60-5.00[facility] HospitalWBC Auto (Bld) [#/Vol]Ordered By: Jose Hwang on 23-95-9748WVT (Bld) [#/Vol]Leukocytes [#/volume] in Blood by Automated count3.8-11.6FC[facility] X-ray reportOrdered By: Tomas Arambula on 26-16-0336Zjrce reportMER[facility] [place] [facility] [address] [place] [address] XRay Report Signed Patient: Katt Rahman MR#: [id number] : 1960 Acct:[id number] Age/Sex: 63 / F ADM Date: 4 Loc: SOXD Room: Type: [facility] Attending Dr: Jose Hwang II, MD Copies to: Jose Hwang MD~ Ordering Provider: Jose Hwang MD Date of Service: 05/18/24 XR/XR hip [...] Thebony ring of the pelvis is intact. Vascularcalcifications are present in the pelvis. XR/XR hip RT min 2V(w/wo pelvis)* IMPRESSION: Significant degenerative changes are noted in the right hip with lesser degrees of degenerative change on the left. No acute bony injury. Impression dictated by: Tomas Arambula M.D.05/18/2024 1:35 PM Dictation Location: [place] [address] Transcribed By: [facility] 05/18/24 133 Dictated By: Tomas Arambula II, MD 05/18/241333 Signed By: 05/18/[address] [facility] Work Phone: Study reportMERCY HEALTH – THE JEWISH HOSPITAL [facility] [place] [facility] [address] [place] [address] XRay Report Signed Patient: Katt Rahman MR#: [id number] : 1960 Acct:[id number] Age/Sex: 63 / F ADM Date: 4 Loc: [facility] Room: Type: [facility] Attending Dr: Jose Hwang II, MD Copies to: Jose Hwang MD~ Ordering Provider: Jose Hwang MD Date of Service: 05/18/24 XR/XR knee [...] Tomas Arambula M.D.05/18/2024 4:37 PM Dictation Location: [place] [address] Transcribed By: [facility] 05/18/241636 Dictated By: Tomas Arambula II, MD 05/18/241631 Signed By: 05/18/2416[address] [facility] Work Phone: XR hip RT min 2V(w/wo pelvis)*on 24-01-2679BT hip RT min 2V(w/wo pelvis)*[facility] [place] [facility] [address] [place] [address] XRay Report Signed Patient: Katt Rahman MR#: [id number] : 1960 Acct:[id number] Age/Sex: 63 / F ADM Date: 05/18/24 Loc: [facility] Room: Type: [facility] Attending Dr: Jose Hwang II, MD Copies to: Jose Hwang MD Ordering Provider: Jose Hwang MD Date of Service: 05/18/24 XR/XR hip [...] Tomas Arambula M.D.05/18/2024 1:35 PM Dictation Location: RADIO-PC-24 Transcribed By: ALBERTO 05/18/24 1335 Dictated By: Tomas Arambula II, MD 05/18/24 1334 Signed By: 05/18/24 1335[facility] Physician GroupXR knee RT 3V - NOT FOR ER USEon 89-16-4120MP knee RT 3V - NOT FOR ER USEMERCY HEALTH – THE JEWISH [facility]ITAL [facility] [place] [facility] [address] [place] [address] XRay Report Signed Patient: Katt Rahman MR#: [id number] : 1960 Acct:[id number] Age/Sex: 63 / F ADM Date: 05/18/24 Loc: [facility] Room: Type: [facility] Attending Dr: Jose Hwang II, MD Copies to: Jose Hwang MD Ordering Provider: Jose Hwang MD Date of Service: 05/18/24 XR/XR knee [...] Tomas Arambula M.D.05/18/2024 4:37 PM Dictation Location: RADIO--24 Transcribed By: ALBERTO 05/18/24 1637 Dictated By: Tomas Arambula II, MD 05/18/24 1632 Signed By: 05/18/24 1637[facility] Physician GroupMM TOMOSYNTHESIS SCREENING BIon 99-08-4454Emk[address] [address] Mammography Report Signed Patient: KATT RAHMAN MR#: [id number] : 1960 Acct:[id number] Age/Sex: 63 / F ADM Date: 05/13/24 Loc: MAMMO Attending Dr: Abiodun Brewer D.O. Ordering Physician: Abiodun Brewer D.O. Results: Date of Service: 05/13/24 Follow Up: Procedure(s): MM tomosynthesis screening BI Accession Number(s): [id number] cc: Abiodun Brewer D.O.; Prem Garvey M.D. Patient Name: KATT RAHMAN MR#: [id number] : 1960 Exam Date: 05/13/2024 Ordering Doctor: DR Abiodun Brewer . RADIOLOGY REPORT PROCEDURE: MM TOMOSYNTHESIS SCREENING BI COMPARISON: MM TOMOSYNTHESIS SCREENING BI, 05/12/2023. MG MAMM SCREEN 3D CARISSA CAD, 04/24/2022. MG MAMM SCREEN 3D CARISSA CAD, 03/29/2021. MG MAMM SCREEN CARISSA W CAD, 11/24/2018. INDICATIONS: Breast Cancer Screening Calculator Name NCI Breast Cancer Risk Assessment Tool 5 Year Breast Cancer Risk 1.80% Lifetime Breast Cancer Risk 6.90% Personal Breast Cancer No Personal Ovarian Cancer No Treatments None Family Cancers Brother with kidney cancer at age 67. LOCATION: [facility] [place] BREAST COMPOSITION: There are scattered areas of fibroglandular density. FINDINGS: DIAGNOSTIC CATEGORY 2--BENIGN FINDING: RIGHT BREAST: No significant suspicious finding. Scattered benign-appearing calcifications are present. No significant change has occurred. LEFT BREAST: No significant suspicious finding. Scattered benign-appearing calcifications are present. No significant change has occurred. RECOMMENDATIONS: ROUTINE MAMMOGRAM AND CLINICAL EVALUATION IN 12 MONTHS. PLEASE NOTE: A NORMAL MAMMOGRAM DOES NOT EXCLUDE THE POSSIBILITY OF BREAST CANCER. A CLINICALLY SUSPICIOUS PALPABLE LUMP SHOULD BE BIOPSIED. Dictated by: Taiwo Brown M.D. on 05/13/2024 at 11:56 Approved by: Taiwo Brown M.D. on 05/13/2024 at 11:59 Dictated By: Taiwo Brown M.D. Signed By: 05/13/24 1200 DD/ 1159 TD/TT: Lacquer Dipping Machine Operator:TBHRadiology, Radiologist, - 05/13/2024 [place] [address] Mammography Report Signed Patient: KATT RAHMAN MR#: [id number] : 1960 Acct:[id number] Age/Sex: 63 / F ADM Date: 05/13/24 Loc: MAMMO Attending Dr: Abiodun Brewer D.O. Ordering Physician: Abiodun Brewer D.O. Results: Date of Service: 05/13/24 Follow Up: Procedure(s): MM tomosynthesis screening BI Accession Number(s): [id number] cc: Abiodun Brewer D.O.; Prem Garvey M.D. Patient Name: KATT RAHMAN MR#: [id number] : 1960 Exam Date: 05/13/2024 Ordering Doctor: DR Abiodun Brewer . RADIOLOGY REPORT PROCEDURE: MM TOMOSYNTHESIS SCREENING BI COMPARISON: MM TOMOSYNTHESIS SCREENING BI, 05/12/2023. MG MAMM SCREEN 3D CARISSA CAD, 04/24/2022. MG MAMM SCREEN 3D CARISSA CAD, 03/29/2021. MG MAMM SCREEN CARISSA W CAD, 11/24/2018. INDICATIONS: Breast Cancer Screening Calculator Name NCI Breast Cancer Risk Assessment Tool 5 Year Breast Cancer Risk 1.80% Lifetime Breast Cancer Risk 6.90% Personal Breast Cancer No Personal Ovarian Cancer No Treatments None Family Cancers Brother with kidney cancer at age 67. LOCATION: [facility] [place] BREAST COMPOSITION: There are scattered areas of fibroglandular density. FINDINGS: DIAGNOSTIC CATEGORY 2--BENIGN FINDING: RIGHT BREAST: No significant suspicious finding. Scattered benign-appearing calcifications are present. No significant change has occurred. LEFT BREAST: No significant suspicious finding. Scattered benign-appearing calcifications are present. No significant change has occurred. RECOMMENDATIONS: ROUTINE MAMMOGRAM AND CLINICAL EVALUATION IN 12 MONTHS. PLEASE NOTE: A NORMAL MAMMOGRAM DOES NOT EXCLUDE THE POSSIBILITY OF BREAST CANCER. A CLINICALLY SUSPICIOUS PALPABLE LUMP SHOULD BE BIOPSIED. Dictated by: Taiwo Brown M.D. on 05/13/2024 at 11:56 Approved by: Taiwo Brown M.D. on 05/13/2024 at 11:59 Dictated By: Taiwo Brown M.D. Signed By: 05/13/24 1200 DD/ 1159 TD/TT: Lacquer Dipping Machine Operator: DIONI HealthcareRadiology Study observation (narrative)[facility] HealthcareNo Panel InformationOrdered By: Radiologist Radiology on 08-60-4868[facility] Work Phone: XR DEXA AXIAL SKELETONon [phone] [address] XRay Report Signed Patient: KATT RAHMAN MR#: [id number] : 1960 Acct:[id number] Age/Sex: 63 / F ADM Date: 05/13/24 Loc: MAMMO Attending Dr: Abiodun Brewer D.O. Ordering Physician: Abiodun Brewer D.O. Date of Service: 05/13/24 Procedure(s): XR DEXA axial skeleton Accession Number(s): [id number] cc: Abiodun Brewer D.O.; Prem Garvey M.D. [place] [address] Patient Name: KATT RAHMAN MRN: [id number] date: 1960 Sex: F Assigned Patient Location: [facility] Current Patient Location: [facility] Accession/Order Number: [id number] Exam Date: 05/13/2024 08:05 Report Date: 05/13/2024 09:18 At the request of: ABIODUN BREWER Procedure: XR DEXA axial skeleton EXAMINATION: [...] Organization Classification: Osteopenia - Moderate Fracture Risk FRAX: Cannot calculate. Pharmacologic treatment recommendations * No uniform recommendation applies to all patients. Management plans must be individualized. * Consider initiating pharmacologic treatment in postmenopausal women and men >= 50 years of age who have the following: Primary fracture prevention: * T-score <= - 2.5 at the femoral neck, total hip, lumbar spine, 33% radius (some uncertainty with existing data) by DXA. * Low bone mass (osteopenia: T-score between - 1.0 and - 2.5) at the femoral neck or total hip by DXA with a 10-year hip fracture risk >= 3% or a 10-year major osteoporosis-related fracture risk >= 20% (i.e., clinical vertebral, hip, forearm, or proximal humerus) based on the [place]-adapted FRAXregistered model. Secondary fracture prevention: * Fracture of the hip or vertebra regardless of BMD [4, 5]. * Fracture of proximal humerus, pelvis, or distal forearm in persons with low bone mass (osteopenia: T-score between - 1.0 and - 2.5). The decision to treat should be individualized in persons with a fracture of the proximal humerus, pelvis, or distal forearm who do not have osteopenia or low BMD [12, 13]. Randy MS, Gucci SL, Rolf KL, Kya EM, Sheila KG, AJ, Nevin ES. The clinician's guide to prevention and treatment of osteoporosis. Osteoporos Int. 2021;33(10):0036-2857. doi: 10.1007/l03279-854-86366-n. Epub 2021Oct 31. Erratum in: Osteoporos Int. 2021Jan 30;: PMID: 35005653; PMCID: [id number]. Electronically authenticated by: TAIWO BROWN Date: 05/13/2024 09:18 Dictated By: Taiwo Brown M.D. Signed By: 05/13/24920 DD/ 7 TD/TT: Lacquer Dipping Machine Operator:TBHRadiology, Radiologist, - 05/13/[address] [address] XRay Report Signed Patient: KATT RAHMAN MR#: [id number] : 1960 Acct:[id number] Age/Sex: 63 / F ADM Date: 05/13/24 Loc: MAMMO Attending Dr: Abiodun Brewer D.O. Ordering Physician: Abiodun Brewer D.O. Date of Service: 05/13/24 Procedure(s): XR DEXA axial skeleton Accession Number(s): [id number] cc: Abiodun Brewer D.O.; Prem Garvey M.D. The [address] [address] Patient Name: KATT RAHMAN MRN: [id number] date: 1960 Sex: F Assigned Patient Location: [facility] Current Patient Location: [facility] Accession/Order Number: [id number] Exam Date: 05/13/2024 08:05 Report Date: 05/13/2024 09:18 At the request of: ABIODUN BREWER Procedure: XR DEXA axial skeleton EXAMINATION: [...] Organization Classification: Osteopenia - Moderate Fracture Risk FRAX: Cannot calculate. Pharmacologic treatment recommendations * No uniform recommendation applies to all patients. Management plans must be individualized. * Consider initiating pharmacologic treatment in postmenopausal women and men >= 50 years of age who have the following: Primary fracture prevention: * T-score <= - 2.5 at the femoral neck, total hip, lumbar spine, 33% radius (some uncertainty with existing data) by DXA. * Low bone mass (osteopenia: T-score between - 1.0 and - 2.5) at the femoral neck or total hip by DXA with a 10-year hip fracture risk >= 3% or a 10-year major osteoporosis-related fracture risk >= 20% (i.e., clinical vertebral, hip, forearm, or proximal humerus) based on the US-adapted FRAXregistered model. Secondary fracture prevention: * Fracture of the hip or vertebra regardless of BMD [4, 5]. * Fracture of proximal humerus, pelvis, or distal forearm in persons with low bone mass (osteopenia: T-score between - 1.0 and - 2.5). The decision to treat should be individualized in persons with a fracture of the proximal humerus, pelvis, or distal forearm who do not have osteopenia or low BMD [12, 13]. Randy MS, Gucci SL, Rolf KL, Kya EM, Sheila KG, AJ, Nevin ES. The clinician's guide to prevention and treatment of osteoporosis. Osteoporos Int. 2021;33(10):6601-8885. doi: 10.1007/q36985-268-51612-u. Epub 2021Oct 31. Erratum in: Osteoporos Int. 2021Jan 30;: PMID: 60360306; PMCID: [id number]. Electronically authenticated by: TAIWO BROWN Date: 05/13/2024 09:18 Dictated By: Taiwo Brown M.D. 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 CLINICAL INDICATION: Pain FINDINGS/IMPRESSION: 1. Moderate osteoarthritis of bilateral hips, right more severe than left. Findings appear unchanged compared to prior. 2. No radiographic evidence of acute osseous abnormality of the right hip/pelvis. 3. Osteopenia. Electronically authenticated by: DAYANA DUTTA Date: 2022-11-01 20:39[facility]XR KNEE RT 4V or >on [id number] KNEE RT 4V or >IMAGES REVIEWED: XR KNEE RT 4V or > COMPARISON: 06/25/2022. CLINICAL INDICATION: Pain FINDINGS/IMPRESSION: No evidence of acute osseous abnormality of the right knee. Constrained longstem right total knee arthroplasty without evidence of complication. No joint effusion. Electronically authenticated by: DAYANA DUTTA Date: 2022-11-01 20:37[facility] HospitalXR LSPINE 2_3 VIEWSon [id number] LSPINE 2_3 VIEWSIMAGES REVIEWED: XR LSPINE 2_3 VIEWS COMPARISON: 12/18/2020, 12/26/2020. CLINICAL INDICATION: Pain. FINDINGS/IMPRESSION: 1. No radiographic evidence of acute osseous abnormality of the lumbar spine. 2. Grade 1 anterolisthesis of L3 on L4 and L4 on L5 due to lower lumbar facet arthropathy as before. 3. Moderate-severe degenerative disc disease at L5-S1 as before. Electronically authenticated by: DAYANA DUTTA Date: 2022-11-01 20:41[facility] HospitalMG MAMM SCREEN 3D CARISSA CADon [id number] MAMM SCREEN 3D CARISSA CAD Patient: KATT RAHMAN Exam Date: 04/24/2022 : 1960 Gender:F Ordering : DR ABIODUN BREWER . Admission #: [id number] Family : Order #: [id number] CLICK HERE TO VIEW EXAM RADIOLOGY REPORT [...] kidney cancer at age 65. LOCATION: The [facility] BREAST COMPOSITION: Heterogeneously dense,which may obscure small [...] LUMP SHOULD BE BIOPSIED. Dictated by: Renetta Rock MD on 04/24/2022 at 12:00 Approved by: Renetta Rock MD on 04/24/2022 at 12:05[facility] PROF CHEM 8 (BAS METB)on [id number] gap [Moles/Vol]12.3 mmol/LNormalThe [facility], AvonComment on above:Performed By: #### BMP #### [facility] Laboratory [address] [place] [address] Dr. Katlyn BarahonaCalcium [Mass/Vol]8.8 mg/dLNormal8.5-10.1[facility] Comment on above:Performed By: #### BMP #### [facility] Laboratory [address] [place] [address] Dr. Katlyn BarahonaChloride [Moles/Vol]104 mmol/VXllhec57-686VwdBlanchard Valley Health System [facility] Comment on above:Performed By: #### BMP #### [facility] Laboratory [address] [place] [address] Dr. Katlyn BarahonaCO2 [Moles/Vol]27.9 mmol/KIvaarj23.0-32.0[facility] Comment on above:Performed By: #### BMP #### [facility] Laboratory [address] [place] [address] Dr. Katlyn BarahonaCreatinine [Mass/Vol]1.07 mg/dLCritically high0.55-1.02The [facility] AvonComment on above:Performed By: #### BMP #### [facility] Laboratory [address] [place] [address] Dr. Katlyn LinnGFR-AF ISRAELI>60Normal>=60The [facility], AvonComment on above:Performed By: #### BMP #### [facility] Laboratory [address] [place] [address] Dr. Katlyn LinnGFR-NON AF YOKHFLFA86 mL/min/1.39x6Qxnswevmhl low>=60The [facility], AvonComment on above:Performed By: #### BMP #### [facility] Laboratory [address] [address] [address] Katlyn BarahonaGlucose [Mass/Vol]173 mg/dLCritically iwil70-076Mkx [facility] on above:Performed By: #### BMP #### [facility] Laboratory [address] [address] [address] Katlyn BarahonaPotassium [Moles/Vol]4.2 mmol/LNormal3.5-5.1[facility] Comment on above:Performed By: #### BMP #### [facility] Laboratory [address] [address] [address] Katlyn BarahonaSodium [Moles/Vol]140 mmol/HRlvcyt901-330FxkBlanchard Valley Health System [facility] Comment on above:Performed By: #### BMP #### [facility] Laboratory [address] [address] [address] Katlyn BarahonaUrea nitrogen [Mass/Vol]20.0 mg/dLCritically high7.0-18.0[facility] on above:Performed By: #### BMP #### [facility] Laboratory [address] [place] [address] Dr. Katlyn Avendaño nitrogen/Creatinine [Mass ratio]18.7 mg/mgNoSelect Medical [facility] Hospital, Edwin ShawComment on above:Performed By: #### BMP #### [facility] Laboratory [address] [place] [address] Dr. Katlyn Quach ACOG PANEL 2: 30 to 65on 02-12-2022..NormalThe [facility], AvonCommymichigan medical center [place] on above:Result Comment: Performed at: WBPerformed By: #### T7, CMP, LIPID, BNP, TSH #### [facility] Laboratory [address] [address] [address] Katlyn Esparza Gdln ACOG Hplihal79-55EpyaefElgSelect Medical [facility], Edwin ShawCommymichigan medical center [place] on above:Performed By: #### T7, CMP, LIPID, BNP, TSH #### [facility] Laboratory [address] [place] [address] Dr. Katlyn BarahonaDIAGNOSIS:CommentMagruder Hospital on above: Result Comment: UNSATISFACTORY FOR EVALUATION. SPECIMEN REPROCESSED FOR INTERPRETATION USING GLACIAL ACETIC ACID (GAA). Performed at: WBPerformed By: #### T7, CMP, LIPID, BNP, TSH #### [facility] Laboratory [address] [place] [address] Dr. Katlyn BarahonaHPV AptimaNegativeNormalNegativeThe [facility] on above:Result Comment: This nucleic acid amplification test detects fourteen high-risk HPV types (16,18,31,33,35,39,45,51,52,56,58,59,66,68) without differentiation. Performed at: =GPerformed By: #### T7, CMP, LIPID, BNP, TSH #### [address] [place] [address] Dr[address] Katlyn BarahonaMethodology:CommentMagruder Hospital on above: Result Comment: This liquid based ThinPrep(R) pap test was screened with the use of an image guided system. Performed at: WBPerformed By: #### T7, CMP, LIPID, BNP, TSH #### [place] [address] Dr[address] Katlyn BarahonaNote:CommentMagruder Hospital on above:Result Comment: The Pap smear is a screening test designed to aid in the detection of premalignant and malignant conditions of the uterine cervix. It is not a diagnostic procedure and should not be used as the sole means of detecting cervical cancer. Both false-positive and false-negative reports do occur. . Performed at: WBPerformed By: #### T7, CMP, LIPID, BNP, TSH #### [facility] Laboratory [address] [place] [address] Dr. Katlyn BarahonaPerformed by:CommentMagruder Hospital on above: Result Comment: Shara Jang, Tile Ditcher (ASCP) Performed at: WBPerformed By: #### T7, CMP, LIPID, BNP, TSH #### [facility] Laboratory [address] [place] [address] Dr. Katlyn BarahonaQC reviewed by:[facility] on above:Result Comment: Almaz Inman, Supervisory Tile Ditcher (ASCP) Performed at: WBPerformed By: #### T7, CMP, LIPID, BNP, TSH #### [facility] Laboratory [address] [address] [address] Katlyn BarahonaRecommendation:CommentMagruder Hospital on above:Result Comment: Suggest follow up as clinically appropriate. Performed at: WBPerformed By: #### T7, CMP, LIPID, BNP, TSH #### [facility] Laboratory [address] [address] [address] Katlyn BarahonaSpecimen adequacy:CommentNoCleveland Clinic Euclid [facility] on above:Result Comment: Specimen processed and examined but unsatisfactory for evaluation of epithelial abnormality because of insufficient cellularity. Areas of partially obscuring blood are present. Performed at: WBPerformed By: #### T7, CMP, LIPID, BNP, TSH #### [facility] Laboratory [address] [address] [address] Katlyn BarahonaXR DEXA BONE DENSITYon [id number] DEXA BONE DENSITYEXAMINATION: XR DEXA BONE DENSITY, 02/11/2022 9:33 AM EDT HISTORY: [...] Moderate fracture risk Electronically authenticated by: RENETTA ROCK Date: 2022-02-11 18:42NoSelect [facility], Edwin ShawLAGE JOINT/BURSA INJECTION AND/OR ASPIRATION: R hip jointon [id number] Bader 01/16/2022 3:57 PM LARGE JOINT/BURSA INJECTION AND/OR [...] Patient was prepped in the usual sterile fashion.[facility] HospitalRadiology Study observation (narrative)[facility] REACTIVE PROTEINon [id number] [Mass/Vol]14.7 mg/LHigh0 - 10.0 MG/L [facility] HospitalInterpretation and review of laboratory resultsAbnoAscension Good Samaritan Health CenterCBC, EDIF, PLATELETon [id number] BASOPHIL COUNT0.0 10*3/uL0.0 - 0.2 10*3/uLGeorgetown Behavioral HospitalBasophils/100 WBC (Bld)0.5 %0.0 - 2.0 %[facility] HospitalDifferential cell count method Nom (Bld) AUTO DIFF%[facility] HospitalEosinophils (Bld) [#/Vol]0.10 10*3/uL0.0 - 0.7 10*3/uLGeorgetown Behavioral HospitalEosinophils/100 WBC (Bld)1.9 %0.0 - 11.0 %[facility] HospitalErythrocyte distribution width (RBC) [Ratio]13.2 %11.5 - 14.5 %[facility] HospitalHematocrit (Bld) [Volume fraction]35.2 %Low36.0 - 48.0 %[facility] HospitalHemoglobin (Bld) [Mass/Vol]11.9 g/dLLowGeorgetown Behavioral Hospital Interpretation and review of laboratory resultsAbMadison Health Lymphocytes (Bld) [#/Vol]1.10 10*3/uLLow1.2 - 3.4 10*3/[facility] Lymphocytes/100 WBC (Bld)14.8 %Low20.0 - 55.0 %[facility] HospitalMCH (RBC) [Entitic mass]30.3 pg26.0 - 35.0 PGAAvita Health SystemMCHC (RBC) [Mass/Vol]33.9 g/dLGeorgetown Behavioral HospitalMCV (RBC) [Entitic vol]89.4 [facility] Monocytes (Bld) [#/Vol]0.6 10*3/uL0.0 - 0.7 10*3/[facility] Monocytes/100 WBC (Bld)7.6 %0.0 - 10.0 %[facility] HospitalNeutrophils (Bld) [#/Vol]5.7 10*3/uL1.4 - 6.5 10*3/City HospitalNeutrophils/100 WBC (Bld) 75.2 %High37.0 - 75.0 %[facility] HospitalPlatelet mean volume (Bld) [Entitic vol]7.5 [facility] HospitalPlatelets (Bld) [#/Vol]257 10*3/uL130.0 - 400.0 10*3/City HospitalRBC (Bld) [#/Vol]3.94 10*6/uLLow4.0 - 5.4 10*6/City HospitalWBC (Bld) [#/Vol]7.6 10*3/uL3.6 - 11.0 10*3/Holzer HospitalEDIMENTATION RATE, AUTOMATEDon [id number] (Bld) [Velocity]12 mm/[facility]auga Medical CenterBNPon 11-13-2021 Natriuretic peptide B (Bld) [Mass/Vol]17.0 pg/mLNormal<=900.0The [facility], AvonComment on above:Performed By: #### T7, CMP, LIPID, BNP, TSH #### [facility] Laboratory [address] [place] [address] Dr. Katlyn BarahonaSELECT [facility] AUTO DIFFon [id number] #0.0 103/ulNormal0.0-0.1The [facility], AvonComment on above:Performed By: #### T7, CMP, LIPID, BNP, TSH #### [facility] Laboratory [address] [place] [address] Dr. Katlyn BarahonaBasophils/100 WBC (Bld)0.8 %Normal0.2-2.0The [facility] Comment on above:Performed By: #### T7, CMP, LIPID, BNP, TSH #### [facility] Laboratory [address] [place] [address] Dr. Katlyn Gonsalves #0.1 103/ulNormal0.0-0.7The [facility], AvonComment on above: Performed By: #### T7, CMP, LIPID, BNP, TSH #### [facility] Laboratory [address] [place] [address] Dr. Katlyn Linnosinophils/100 WBC (Bld)2.6 %Normal0.9-7.0The [facility] Comment on above:Performed By: #### T7, CMP, LIPID, BNP, TSH #### [facility] Laboratory [address] [place] [address] Dr. Katlyn Linnrythrocyte distribution width (RBC) [Ratio]12.6 %Urjpqy29.0-15.0 The [facility], AvonComment on above:Performed By: #### T7, CMP, LIPID, BNP, TSH #### [facility] Laboratory [address] [place] [address] Dr. Katlyn BarahonaHematocrit (Bld) [Volume fraction]38.7 %Iemxyl43.0-48.0The [facility], AvonComment on above:Performed By: #### T7, CMP, LIPID, BNP, TSH #### [facility] Laboratory [address] [place] [address] Dr. Katlyn BarahonaHemoglobin (Bld) [Mass/Vol]12.3 g/jIZqwjmd44.0-16.0The [facility], AvonComment on above:Performed By: #### T7, CMP, LIPID, BNP, TSH #### [facility] Laboratory [address] [place] [address] Dr. Katlyn BarahonaIG #0.02 10e3/ulNormal0.00-0.03The [facility], AvonComment on above:Performed By: #### T7, CMP, LIPID, BNP, TSH #### [facility] Laboratory [address] [address] [address] Katlyn Otero %0.4 %Normal0.0-0.5The [facility], AvonComment on above: Performed By: #### T7, CMP, LIPID, BNP, TSH #### [facility] Laboratory [address] [place] [address] Dr. Katlyn Richard #1.4 103/ulNormal1.2-3.8The [facility], AvonComment on above:Performed By: #### T7, CMP, LIPID, BNP, TSH #### [facility] Laboratory [address] [place] [address] Dr. Katlyn Ramirezhocytes/100 WBC (Bld)28.0 %Gxajih52.5-60.0The [facility] Miamisburgment on above:Performed By: #### T7, CMP, LIPID, BNP, TSH #### [facility] Laboratory [address] [place] [address] Dr. Katlyn DerasUAL DIFF REQNONormalThe [facility], AvonComment on above: Performed By: #### T7, CMP, LIPID, BNP, TSH #### [facility] Laboratory [address] [place] [address] Dr. Katlyn Johnson (RBC) [Entitic mass]29.8 dlKybqir23.7-34.0The [facility] Miamisburgment on above:Performed By: #### T7, CMP, LIPID, BNP, TSH #### [facility] Laboratory [address] [place] [address] Dr. Katlyn Johnson (RBC) [Mass/Vol]31.8 g/qCNfqclx79.9-35.2The [facility] on above:Performed By: #### T7, CMP, LIPID, BNP, TSH #### [facility] Laboratory [address] [place] [address] Dr. Katlyn Johnson (RBC) [Entitic vol]93.7 uDCbadyq20.0-99.0The [facility], AvonComment on above:Performed By: #### T7, CMP, LIPID, BNP, TSH #### [facility] Laboratory [address] [address] [address] Katlyn Nation #0.4 103/ulNormal0.3-0.8The [facility], AvonComment on above:Performed By: #### T7, CMP, LIPID, BNP, TSH #### [facility] Laboratory [address] [address] [address] Katlyn Dialloocytes/100 WBC (Bld)8.9 %Normal1.7-12.0The [facility] Comment on above:Performed By: #### T7, CMP, LIPID, BNP, TSH #### [facility] Laboratory [address] [place] [address] Dr. Katlyn Monzon #3.0 103/ulNormal1.4-6.5The [facility], AvonComment on above:Performed By: #### T7, CMP, LIPID, BNP, TSH #### [facility] Laboratory [address] [place] [address] Dr. Katlyn Hernandezutrophils/100 WBC (Bld)59.3 %Npgffa19.0-75.0The [facility] Miamisburgment on above:Performed By: #### T7, CMP, LIPID, BNP, TSH #### [facility] Laboratory [address] [address] [address] Katlyn Luciolet mean volume (Bld) [Entitic vol]8.9 fLCritically low 9.5-13.5The [facility] Miamisburgment on above:Performed By: #### T7, CMP, LIPID, BNP, TSH #### [facility] Laboratory [address] [place] [address] Dr. Katlyn BarahonaPLT259 103/laElmngy514-409Edd [facility] Miamisburgment on above: Performed By: #### T7, CMP, LIPID, BNP, TSH #### [facility] Laboratory [address] [place] [address] Dr. Katlyn BarahonaRBC4.13 106/ulCritically low4.20-5.40The [facility] on above:Performed By: #### T7, CMP, LIPID, BNP, TSH #### [facility] Laboratory [address] [place] [address] Dr. Katlyn BarahonaWBC5.0 103/ulNormal4.0-11.0The [facility], AvonCommymichigan medical center [facility] on above: Performed By: #### T7, CMP, LIPID, BNP, TSH #### [facility] Laboratory [address] [place] [address] Dr. Katlyn Chavarria THYROXINE INDEX T7on 88-02-4767GTS1.27Dssuar3.30-4.50The [facility] on above:Performed By: #### T7, CMP, LIPID, BNP, TSH #### [facility] Laboratory [address] [place] [address] Dr. Katlyn BarahonaT3U36.0 %Avyjzw70.0-39.0The [facility] on above: Performed By: #### T7, CMP, LIPID, BNP, TSH #### [facility] Laboratory [address] [place] [address] Dr. Katlyn BarahonaT4 [Mass/Vol]6.30 ug/dLNormal4.80-13.90The [facility] Comment on above:Performed By: #### T7, CMP, LIPID, BNP, TSH #### [facility] Laboratory [address] [place] [address] Dr. Katlyn BarahonaGLYCOHEMOGLOBIN A1Con 77-79-8291XMG RECOMMENDATIONSEE BELOWNormal The [facility] AvonCommymichigan medical [facility] [place] on above:Result Comment: ADA RECOMMENDED LIMIT 4.0 - 6.0 ADA THERAPEUTIC TARGET < 7.0 ACTION SUGGESTED > 7.0Performed By: #### T7, CMP, LIPID, BNP, TSH #### [facility] Laboratory [address] [place] [address] Dr. Katlyn BarahonaGlucose [Mass/Vol]154 mg/dLNormalThe [facility] AvonCommymich[facility] [place] on above:Performed By: #### T7, CMP, LIPID, BNP, TSH #### [facility] Laboratory [address] [place] [address] Dr. Katlyn BarahonaHbA1c (Bld) [Mass fraction]7.0 %Critically high4.5-6.2[facility] on above:Performed By: #### T7, CMP, LIPID, BNP, TSH #### [facility] Laboratory [address] [place] [address] Dr. Katlyn Ventura [id number] [Mass/Vol]72.0 ug/wYQbrfhs35.0-170.0The [facility] on above:Performed By: #### T7, CMP, LIPID, BNP, TSH #### [facility] [address] [place] [address] Dr. Katlyn CastroID PROFILEon [id number]-HDL RATIO NORMSEE [facility] on above:Result Comment: 3.3 - 4.4 LOW RISK 4.4 - 7.1 AVERAGE RISK 7.1 - 11.0 MODERATE RISK >11.0 HIGH RISKPerformed By: #### T7, CMP, LIPID, BNP, TSH #### [facility] [address] [place] [address] Dr. Katlyn Hungesterol [Mass/Vol]290 mg/dLCritically high<=200The [facility] on above:Performed By: #### T7, CMP, LIPID, BNP, TSH #### [facility] [address] [place] [address] Dr. Katlyn Hungesterol in HDL [Mass/Vol]65 mg/dLCritically zqjd17-93Aib [facility] on above:Performed By: #### T7, CMP, LIPID, BNP, TSH #### [facility] [address] [place] [address] Dr. Katlyn Hungesterol in LDL [Mass/Vol]183.4 mg/dLMagruder Hospital on above:Performed By: #### T7, CMP, LIPID, BNP, TSH #### [facility] [address] [place] [address] Dr. Katlyn Hungesterkenrick.total/Cholesterol in HDL [Mass ratio]4.5 {ratio} NormalThe Columbus HospitalComment on above:Performed By: #### T7, CMP, LIPID, BNP, TSH #### [facility] [address] [address] [address] Katlyn Serrano NORMAL> or = 60 mg/dl - LOW CARDIOVASCULAR RISK <40 mg/dl - HIGH CARDIOVASCULAR RISKBrecksville VA / Crille HospitalCommymichigan medical center [facility] on above:Performed By: #### T7, CMP, LIPID, BNP, TSH #### [facility] [address] [address] [address] Katlyn Barillas CALC NORMALSEE BELOWBrecksville VA / Crille HospitalComment on above:Result Comment: <100 mg/dl OPTIMAL 100 - 129 mg/dl NEAR OR ABOVE OPTIMAL 130 - 159 mg/dl BORDERLINE HIGH 160 - 189 mg/dl HIGH >190 mg/dl VERY HIGH Performed By: #### T7, CMP, LIPID, BNP, TSH #### [facility] [address] [place] [address] Dr. Katlyn BarahonaTriglyceride [Mass/Vol]208 mg/dLCritically high<=150The [facility] on above:Performed By: #### T7, CMP, LIPID, BNP, TSH #### [facility] [address] [place] [address] Dr. Katlyn Lockett CALC41.6 mg/dLBrecksville VA / Crille HospitalCommymichigan medical center [place] on above: Performed By: #### T7, CMP, LIPID, BNP, TSH #### [facility] [address] [place] [address] Dr. Katyln Kyle 14(COMP METB)on 25-50-8367Vbrfhat [Mass/Vol]3.6 g/dLNormal 3.4-5.0[facility] Campusment on above:Performed By: #### T7, CMP, LIPID, BNP, TSH #### [facility] [address] [place] [address] Dr. Katlyn BarahonaAlbumin/Globulin [Mass ratio]1.1 {ratio}NormalThe [facility] AvonComment on above:Performed By: #### T7, CMP, LIPID, BNP, TSH #### [facility] [address] [address] [address] Katlyn Kang [Catalytic activity/Vol]91 U/FPajivz62-213Sti [facility] AvonComment on above:Performed By: #### T7, CMP, LIPID, BNP, TSH #### [facility] [address] [place] [address] Dr. Katlyn Muñoz [Catalytic activity/Vol]17 U/IVzvxuo05-54Brm [facility] AvonComment on above:Performed By: #### T7, CMP, LIPID, BNP, TSH #### [facility] [address] [place] [address] Dr. Katlyn De La Torre gap [Moles/Vol]12.8 mmol/LNormalBlanchard Valley [facility] Comment on above:Performed By: #### T7, CMP, LIPID, BNP, TSH #### [facility] [address] [place] [address] Dr. Katlyn BarahonaAST [Catalytic activity/Vol]10 U/LCritically jwn55-84Cmn [facility] AvonComment on above:Performed By: #### T7, CMP, LIPID, BNP, TSH #### [facility] [address] [place] [address] Dr. Katlyn BarahonaBilirubin [Mass/Vol]0.4 mg/dLNormal0.2-1.0The [facility] Comment on above:Performed By: #### T7, CMP, LIPID, BNP, TSH #### [facility] [address] [place] [address] Dr. Katlyn BarahonaCalcium [Mass/Vol]8.7 mg/dLNormal8.5-10.1[facility] Comment on above:Performed By: #### T7, CMP, LIPID, BNP, TSH #### [facility] [address] [place] [address] Dr. Katlyn BarahonaChloride [Moles/Vol]103 mmol/MDotaye09-556Raz [facility] Comment on above:Performed By: #### T7, CMP, LIPID, BNP, TSH #### [facility] [address] [place] [address] Dr. Katlyn BarahonaCO2 [Moles/Vol]26.4 mmol/RJjfbzz10.0-32.0The [facility] Comment on above:Performed By: #### T7, CMP, LIPID, BNP, TSH #### [facility] [address] [address] [address] Katlyn BarahonaCreatinine [Mass/Vol]1.19 mg/dLCritically high0.55-1.02The [facility]on[facility] on above:Performed By: #### T7, CMP, LIPID, BNP, TSH #### [facility] [address] [place] [address] Dr. Potts ChangEGFR-AF MQKHSKZC62 mL/min/1.83z0Zdqneuuapy low>=60The [facility] AvonComment on above:Performed By: #### T7, CMP, LIPID, BNP, TSH #### [facility] [address] [place] [address] Dr. Katlyn LinnGFR-NON AF UTJAQRXS12 mL/min/1.59u7Csfegvtive low>=60The [facility] AvonComment on above:Performed By: #### T7, CMP, LIPID, BNP, TSH #### [facility] [address] [place] [address] Dr. Katlyn BarahonaGlobulin (S) [Mass/Vol]3.2 g/dLNormalThe [facility] AvonComment on above:Performed By: #### T7, CMP, LIPID, BNP, TSH #### [facility] [address] [place] [address] Dr. Katlyn BarahonaGlucose [Mass/Vol]133 mg/dLCritically kqoa71-521Ozt [facility] Miamisburgment on above:Performed By: #### T7, CMP, LIPID, BNP, TSH #### [facility] [address] [place] [address] Dr. Katlyn BarahonaPotassium [Moles/Vol]4.2 mmol/LNormal3.5-5.1The [facility] Comment on above:Performed By: #### T7, CMP, LIPID, BNP, TSH #### [facility] [address] [place] [address] Dr. Katlyn BarahonaProtein [Mass/Vol]6.8 g/dLNormal6.4-8.2The [facility] Comment on above:Performed By: #### T7, CMP, LIPID, BNP, TSH #### [facility] [address] [place] [address] Dr. Katlyn Lesterdium [Moles/Vol]138 mmol/DVilhph202-735KfjBlanchard Valley Health System [facility] Comment on above:Performed By: #### T7, CMP, LIPID, BNP, TSH #### [facility] [address] [place] [address] Dr. Katlyn BarahonaUrea nitrogen [Mass/Vol]17.0 mg/dLNormal7.0-18.0The [facility] AvonComment on above:Performed By: #### T7, CMP, LIPID, BNP, TSH #### [facility] [address] [place] [address] Dr. Katlyn Avendaño nitrogen/Creatinine [Mass ratio]14.3 mg/mgBrecksville VA / Crille HospitalComment on above:Performed By: #### T7, CMP, LIPID, BNP, TSH #### [facility] [address] [place] [address] Dr. Katlyn Flores 25-36-2970EBY9.384 uIU/mLNormal0.358-3.740[facility] HospitalComment on above:Performed By: #### T7, CMP, LIPID, BNP, TSH #### [facility] [address] [place] [address] Dr. Katlyn Robertson [facility] BELOWBrecksville VA / Crille HospitalComment on above: Result Comment: <0.34 UIU/ml HYPERTHYROID 0.34-5.60 UIU/ml EUTHYROID >5.60 UIU/ml HYPOTHYROIDPerformed By: #### T7, CMP, LIPID, BNP, TSH #### [facility] [address] [place] [address] Dr. Katlyn BarahonaVITAMIN D 25 OHon 72-04-8216FIT D 25-OH23.2 ng/mLNormalThe [facility]onComment on above:Performed By: #### T7, CMP, LIPID, BNP, TSH #### [facility] [address] [place], [place] [address] Dr. Katlyn ENCINASHolmes County Joel Pomerene Memorial HospitalComment on above: Result Comment: <20 ng/mL Vit D deficient 20 - <30 ng/mL Vit D insufficient 30 - 100 ng/mL Vit D sufficient >100 ng/mL Potential ToxicityPerformed By: #### T7, CMP, LIPID, BNP, TSH #### [facility] [address] [address] [address] Katlyn Contreras JOINT/BURSA INJECTION AND/OR ASPIRATION: R hip jointon 44-40-0644Qyiurhvv Giandrea 10/25/2021 3:52 PM LARGE JOINT/BURSA INJECTION AND/OR [...] The patient was prepped with alcohol and Chloraprep.[facility] HospitalXR knee RT 2Von 83-48-9158KG knee RT 2VMercy Health [facility]rbana [facility] [employer] Other XR knee RT 2VG[facility] [employer] Other XR knee RT [address] [place] [address] [employer] Other XR knee RT 2[place]indigo [place] [address]Sqfwu [place] [employer] Other XR knee RT 2VXRay ReportOswego [place] [employer] Other XR knee RT 2VSignedOswego [place] [employer] Other XR knee RT 2VPatient: Katt Rahman MR#: [id number] [place] [employer] Other XR knee RT 2VDOB: 1960 Acct:[id number] [place] [employer] Other XR knee RT 2VAge/Sex: 60 / F ADM Date: 04/09/21[place] [employer] Other XR knee RT 2VLoc: SOX Room: Type: [facility] [employer] [place] [employer] Other XR knee RT 2VAttending Dr: Milagros Hall CLIENT SERVICES MANAGER-C [place] [employer] Other XR knee RT 2VOrdering Provider: Yehuda Camara MDOswego [place] [employer] Other XR knee RT 2VDate of Service: 04/09/21[place] [employer] Other XR knee RT 2VAccession #: ([id number]) XR/XR knee RT 2V: History of total right knee replacementOswego [place] [employer] Other XR knee RT 2VCopies to: Yehuda Camara MDOswego [place] [employer] Other XR knee RT 2VBUNNY [facility]insley[facility] [employer] [place] [employer] Other XR knee RT 2V2 views RIGHT knee plain filmOswego [place] [employer] Other XR knee RT 2VCOMPARISON:05/10/20[place] [employer] Other XR knee RT 2VHISTORY:Status post RIGHT total knee arthroplastyOswego [place] [employer] Other XR knee RT 2VNo hardware failure or loosening identified. No fracture or dislocation. Small suprapatellarNosaint louis university health science center [place] [employer] Other xr knee RT 2Veffusion. No soft tissue abnormality. [employer] Other xr knee RT 2VORDER #: [id number] XR/XR knee RT 2VNosaint louis university health science center [place] [employer] Other xr knee RT 2VIMPRESSION:Uncomplicated RIGHT knee arthroplasty.[employer] Other xr knee RT 2VImpression dictated by: Edilberto Castillo M.D.04/09/2021 11:51 [facility] [employer] [place] [employer] Other xr knee RT 2VDictation Location: [address] [place] [employer] Other xr knee RT 2VTranscribed By: PWS 04/09/[address] [facility] [employer] Other xr knee RT 2VDictated By: Edilberto Castillo DO 04/09/21 [facility] Other xr knee RT 2VSigned By:[employer] Other xr knee RT 2V[address] [facility] [facility] Other Vital Signs Date TimeVital SignValuePerforming ObsvefzsmQqafxhcm13-98-0251 09:20-0400Body ewobek845.6 cmSjanet Rivera MD Work Phone: [employer]10-30-2025 09:20-0400Body mass index (BMI) [Ratio]32.58 kg/p0PndfgKee Rivera MD Work Phone: [employer]10-30-2025 09:20-0400Body weight 86.09 kgKee Rivera MD Work Phone: [employer]10-30-2025 08:31-0400Body height 162.6 cmTriny Armenta DO Work Phone: [phone])[address]10-30-2025 08:31-0400Body mass index (BMI) [Ratio]33.01 kg/j6Igpfnb Riehm DO Work Phone: [phone])[address] [place], [place] 9742610-30-2025 08:31-0400Body lfxonktdkec06.59 [degF]Triny Riehm DO Work Phone: 1(640)[address] [place], [place] 9742610-30-2025 08:31-0400Body weight 87.23 kgJeremy Riehm DO Work Phone: 1(818)[address] [place], [place] 9742610-09-2025 13:25-0400Body height 165.1 cmSteven Rusher DPM Work Phone: [phone])[address] [place], [place] 7046610-09-2025 13:25-0400Body mass index (BMI) [Ratio]31.62 kg/x6Jvcjub Rusher DPM Work Phone: 1(517)[address] [place], [place] 7046610-09-2025 13:25-0400Body mofhhw15.18 kgSteven Rusher DPM Work Phone: [phone])[address] [place], [place] 7046609-25-2025 12:59-0400Body ntwjmy237.6 cmJeremy Riehm DO Work Phone: 1(577)[address] [place], [place] 9742609-25-2025 12:59-0400Body mass index (BMI) [Ratio]33.2 kg/j9Yxlljp Riehm DO Work Phone: 1(079)[address] [place], [place] 9742609-25-2025 12:59-0400Body vajncobvbgd48.2 [degF]Triny Riehm DO Work Phone: 1(155)[address] [place], [place] 9742609-25-2025 12:59-0400Body weight 87.73 kgJeremy Riehm DO Work Phone: 1(607)[address] [place], [place] 9742608-25-2025 13:32-0400Body height 162.6 cmJeremy Riehm DO Work Phone: 1(712)[address] [place], [place] 9742608-25-2025 13:32-0400Body mass index (BMI) [Ratio]32.79 kg/v5Ezpwld Riehm DO Work Phone: 1(339)625-[address] [place], [place] 1569208-25-2025 13:32-0400Body qgyqmnbuiry20.49 [degF]Triny Baileyehm DO Work Phone: 1(517)888-[address] [place], [place] 1569208-25-2025 13:32-0400Body weight 86.64 kgJeremy Riehm DO Work Phone: [phone])[address]08-21-2025 11:29-0400Body mass index (BMI) [Ratio]31.75 kg/f8Wuqdq Daniella DO Work Phone: [facility]ansonUjmtzzxiey44-60-4903 11:29-0400Body zcoaep62.55 kgCorey Daniella DO Work Phone: [facility] BransonXbrcqehpir58-17-2114 11:29-0400Diastolic blood mm[Hg]Abiodun Daniella DO Work Phone: [facility] BransonLunnwjrtna12-22-9724 11:29-0400Systolic blood ejbxxdax007 mm[Hg]Abiodun Daniella DO Work Phone: [phone]-[facility]ly [facility] CountyCox BransonHczxyhdcpj87-20-5562 08:11-0400Body vfhqys954.6 cmJejyoti Baileyehm DO Work Phone: 1(213)777-[address] [place], [place] 1569207-24-2025 08:11-0400Body mass index (BMI) [Ratio]33.37 kg/w6Ydrvcm Riehm DO Work Phone: 1(337)498-[address] [place], [place] 1569207-24-2025 08:11-0400Body xoshcaootcp33.91 [degF]Triny Hernandezm DO Work Phone: 1(474)857-[address] [place], [place] 1569207-24-2025 08:11-0400Body weight 88.18 kgClaytonremy Riehm DO Work Phone: 1(727)863-[address] [place], [place] 1569205-15-2025 13:22-0400Body height 162.6 Annamaria Rivera MD Work Phone: 1(881)789-[address] [place], [place] 9342605-15-2025 13:22-0400Body mass index (BMI) [Ratio]33.71 kg/h6GqqquKee Rivera MD Work Phone: 0(509)643-[address] [place], [place] 9342605-15-2025 13:22-0400Body jqkelpspffn38.01 [degF]Kee Rivera MD Work Phone: 7(738)660-[address] [place], [place] 9342605-15-2025 13:22-0400Body weight 89.09 kgKee Rivera MD Work Phone: 1(853)[address]03-14-2025 10:49-0400Body height 162.6 cmSjanet Rivera MD Work Phone: 1(714)[address]03-14-2025 10:49-0400Body mass index (BMI) [Ratio]34.12 kg/p3YccbnKee Rivera MD Work Phone: 1([phone])[address]03-14-2025 10:49-0400Body weight 90.17 kgKee Rivera MD Work Phone: 1(292)[address]11-12-2024 14:31-0500Body height 162.56 cmPrem Garvey MD Work Phone: 6(578)333-[address] [place], [place] 7243011-12-2024 14:31-0500 Body mass index (BMI) [Ratio]33.5 kg/i3UobjrotPrem Garvey MD Work Phone: 3(041)796-[address] [place], [place] 7243011-12-2024 14:31-0500 Body yogxio39.45 kgPrem Garvey MD Work Phone: 5(920)631-[address] [place], [place] 7243008-30-2023 11:26-0400 Body zuldnt041.1 cmCberta Durant APRN-GRAVITY PROSPECTING SUPERVISOR Work Phone: [phone])[address]08-30-2023 11:26-0400Body mass index (BMI) [Ratio]32.95 kg/m2Jordon Durant APRN-GRAVITY PROSPECTING SUPERVISOR Work Phone: 9(073)123-[address] [place], [place] 9342608-30-2023 11:26-0400Body weight 89.81 kgChad Carleen AIR TUBE RELEASER-GRAVITY PROSPECTING SUPERVISOR Work Phone: 1(778)793-[address] [place], [place] 9342612-21-2022 11:34-0500Body height 165.1 Annamaria Rivera MD Work Phone: 1(980)677-[address] [place], [place] 9342612-21-2022 11:34-0500Body mass index (BMI) [Ratio]33.08 kg/a9LqkzrKee Rivera MD Work Phone: 1(797)659-[address] [place], [place] 9342612-21-2022 11:34-0500Body cajluaoysem32.2 [degF]Kee Rivera MD Work Phone: 1(214)[address]12-21-2022 11:34-0500Body weight 90.17 kgKee Rivera MD Work Phone: 1(605)[address]10-12-2022 13:38-0400Body height 165.1 cmCberta Durant AIR TUBE RELEASER-GRAVITY PROSPECTING SUPERVISOR Work Phone: [phone])[address]10-12-2022 13:38-0400Body mass index (BMI) [Ratio]33.12 kg/m2Tianad Carleen AIR TUBE RELEASER-GRAVITY PROSPECTING SUPERVISOR Work Phone: 1(814)[address]49 [address]10-12-2022 13:38-0400Body bwpnjgdbydi75.11 [degF]Jordon Durant AIR TUBE RELEASER-GRAVITY PROSPECTING SUPERVISOR Work Phone: 1(819)[address]10-12-2022 13:38-0400Body weight 90.27 kgJordon Carleen AIR TUBE RELEASER-GRAVITY PROSPECTING SUPERVISOR Work Phone: 1(337)[address]09-21-2022 13:25-0400Body height 165.1 cmCberta Durant AIR TUBE RELEASER-GRAVITY PROSPECTING SUPERVISOR Work Phone: [phone])[address]09-21-2022 13:25-0400Body mass index (BMI) [Ratio]33.12 kg/m2Tianad Carleen AIR TUBE RELEASER-GRAVITY PROSPECTING SUPERVISOR Work Phone: 1(559)[address]09-21-2022 13:25-0400Body wjvbsaabtgf04.5 [degF]Jordon Carleen AIR TUBE RELEASER-GRAVITY PROSPECTING SUPERVISOR Work Phone: 1(709)[address]09-21-2022 13:25-0400Body weight 90.27 kgJordon GUTIERREZ Work Phone: [facility]07-14-2022 13:12-0400Body height 165.1 Annamaria Rivera MD Work Phone: [facility]07-14-2022 13:12-0400Body mass index (BMI) [Ratio]33.25 kg/r9IxsxkKee Rivera MD Work Phone: [facility]07-14-2022 13:12-0400Body yckwvbssjwg13.59 [degF]Kee Rivera MD Work Phone: [facility]07-14-2022 13:12-0400Body weight 90.63 kgKee Rivera MD Work Phone: [facility]06-03-2022 12:52-0400Body height 165.1 cmJeremy Riehm DO Work Phone: 1(645)[address] [place], [place] 5007006-03-2022 12:52-0400Body mass index (BMI) [Ratio]34.35 kg/o5Vpyprh Riehm DO Work Phone: 1(475)[address] [place], [place] 5007006-03-2022 12:52-0400Body ufyfmxqueqo99.9 [degF]Triny Riehm DO Work Phone: 1(054)[address] [place], [place] 5007006-03-2022 12:52-0400Body weight 93.62 kgJeremy Riehm DO Work Phone: 1(889)[address] [place], [place] 5007004-22-2022 11:17-0400Body height 165.1 cmJeremy Riehm DO Work Phone: 1([phone])[address] [place], [place] 5007004-22-2022 11:17-0400Body mass index (BMI) [Ratio]33.38 kg/x9Vwgbae Riehm DO Work Phone: 1(304)[address] [place], [place] 5007004-22-2022 11:17-0400Body wjelbwfxfzi63.7 [degF]Triny Riehm DO Work Phone: [employer] Dqxdhr11-09-5310 11:17-0400Body weight 90.99 kgTriny Armenta DO Work Phone: [employer]12-01-2021 16:15-0500Body height 162.56 cmRobert Jaiden II Other [employer] Other 12-01-2021 16:15-0500Body mass index (BMI) [Ratio] 32.78 kg/g0Rclxzm Jaiden II Other [employer] Other 12-01-2021 16:15-0500Body reweam49.64 kgRobert Bergen II Other [employer] Other 10-05-2021 09:30-0400Body abkxwe672.56 cmJames Camara Other [employer] Other 10-05-2021 09:30-0400Body mass index (BMI) [Ratio] 32.61 kg/v5Byyql Camara Other [employer] Other 10-05-2021 09:30-0400Body mrviqv69.18 kgJames Camara Other [employer] Other Encounters Encounter DateEncounter TypeCare ProviderFacilityStart: 05-04-2025 End: 70-73-4155Lmafrg outpatient visit 15 minutesJejyoti Armenta DO Work Phone: [facility] OrthopedicsComment on above:Right hip pain (Primary Dx); Loosening of prosthesis of right knee joint; Chronic pain of right kneeLow back pain, unspecified back pain laterality, unspecified chronicity, unspecified whether sciatica present (Primary Dx)Start: 90-52-3171bmcopvmgxqVAJMPKnickerbocker Hospital HospitalStart: 04-13-2025 End: 94-30-3469oxubjwdgkiUFAHGV A RUSHERNot AvailableStart: 04-13-2025 End: 77-96-1619Tivpme flowsheetSteven A Rusher DPM Work Phone: [facility] PodiatryStart: 04-13-2025 End: 17-07-9014Gfdseu flowsheetSteven A Rusher DPM Work Phone: [facility] PodiatryStart: 04-13-2025 End: 77-38-9241Pbwyzk outpatient new 45 minutesSteven A Rusher DPM Work Phone: noTri [facility] PodiatryComment on above:Primary osteoarthritis of left foot (Primary Dx); Pain in joint of left foot; Hallux valgus (acquired), left foot; Difficulty walkingStart: 04-13-2025 End: 73-86-8007szgntdtxzgIVJSEI A RUSHERNot AvailableStart: 03-30-2025 End: 09-92-3822Sptzav outpatient visit 25 minutesJeabiy Hugh Riehm DO Work Phone: [facility] OrthopedicsComment on above:Right hip pain (Primary Dx); Loosening of prosthesis of right knee jointStart: 64-52-3463nbynfdcjlrUHQGNHP M [facility] Hospitaltart: 03-20-2025 End: 20-98-6381Dcfdjue encounter procedureTriny Armenta DO-[facility] Work Phone: Start: 03-20-2025 End: 76-63-1991beoodioxdvGjdprps M Hoy MD Work Phone: [facility] Work Phone: Start: 69-34-3566zaxfrbwrotXTMVROQ [facility] Hospitaltart: 02-27-2025 End: 00-80-3530Mcynjp outpatient visit 25 minutesJeremy L Riehm DO Work Phone: [facility] OrthopedicsComment on above:Right hip pain (Primary Dx); Chronic pain of right knee; History of right knee joint replacementStart: 75-54-9328xmfrjbvfnwIPKYGT L RIEDISON [facility] HospitalStart: 02-23-2025 End: 41-78-6156Lebsnz flowsheetCorey Daniella DO Work Phone: [facility] OBGYNStart: 02-23-2025 End: 68-52-3119Otutxb flowsheetCorey Daniella DO Work Phone: NOWB [facility] OBGYNStart: 02-23-2025 End: 81-48-0867Yjuhooc encounter procedureCorey Daniella DO Work Phone: noms [facility] OBGYNComment on above:Breast cancer screening by mammogram; Well woman exam with routine gynecological examStart: 02-23-2025 End: 61-05-8274qtzobnqopiGTCLP FAZIONot AvailableStart: 01-26-2025 End: 23-46-7132Kmakwqixzv hospital visit by iGselle Armenta DO Work Phone: [facility] Procedure ImagesComment on above:Arrived Start: 01-26-2025 End: 83-43-9647Uumisy outpatient new 45 Gretta Armenta DO Work Phone: [facility] OrthopedicsComment on above:Right hip pain (Primary Dx)Start: 58-03-5331trwsqkopolSAOWTA L NEPRATIBHAEssex County Hospital Start: 11-17-2024 End: 50-03-1328Mszjxg outpatient visit 15 Ca Rivera MD Work Phone: [facility] OrthopedicsComment on above:Right knee pain, unspecified chronicity (Primary Dx); Right hip painStart: 11-17-2024 End: 95-61-7470Gteweqkrdu hospital visit by Guanaco Rivera MD Work Phone: [facility] RadiologyStart: 59-18-2542pgzdlggnsbPQEUB [facility] HospitalStart: 11-09-2024 End: 07-39-5081uqrislqpvbJfcklde M Hoy MD Work Phone: [facility] Work Phone: Start: 11-09-2024 End: 73-36-9860Gdwdycwork Angel Rivera MD-Physical Therapy [place] Start: 09-16-2024 End: 66-34-9177Tygfgs outpatient visit 15 Ca Rivera MD Work Phone: [facility] OrthopedicsComment on above:History of revision of total replacement of right knee joint (Primary Dx)Start: 09-16-2024 End: 72-44-0616Kwtsgvdezg hospital visit by Guanaco Rivera MD Work Phone: [facility] RadiologyStart: 42-86-4853ndbigwtvcnKBORZ FOSTERCentrastate Healthcare System HospitalStart: 47-36-4353vjkxgajhmtZudares R NILL [facility]: 07-18-2024 End: 44-67-7939jssrvsrgymXbexvuv M Hoy MD Work Phone: [facility] Work Phone: Start: 07-18-2024 End: 39-88-4436Cypofff encounter procedurePrem Garvey MD Work Phone: [facility] Work Phone: Start: 07-14-2024 End: 44-70-9368fvcmafvnxsGgknybz M Hoy MD Work Phone: [facility] Work Phone: Start: 07-14-2024 End: 77-09-1847Ouokflq encounter procedurePrem Garvey MD Work Phone: [facility] Work Phone: Start: 07-07-2024 End: 19-83-6931ufdhtpsipeOkfixcd M Hoy MD Work Phone: [facility] Work Phone: Start: 07-07-2024 End: 67-68-4479Knjufnd encounter procedurePrem Garvey MD Work Phone: [facility] Work Phone: Start: 75-90-8198Gtb-patient / Non-visitPrem Garvey MD Work Phone: [facility] Work Phone: Start: 05-30-2024 End: 79-21-5886Llwkmrx encounter Brionna Garvey MD Work Phone: [facility] Work Phone: Start: 05-23-2024 End: 30-28-7636Xbtf/qhp telephone evaluation 5-10 minCorey Daniella DO Work Phone: [facility] OBComment on above:Osteopenia, unspecified locationStart: 05-18-2024 End: 33-39-1884fkipwrfwnxJksazdy M Hoy MD Work Phone: [facility] Work Phone: Start: 05-18-2024 End: 29-26-2108Gvceqwt encounter Brionna Garvey MD Work Phone: [facility] Work Phone: Start: 05-18-2024 End: 30-14-6837Jaekruh encounter Brionan Garvey MD Work Phone: [facility] Start: 05-18-2024 End: 02-88-8116whalajzmpjYnmxphk M Hoy MD Work Phone: [facility] Work Phone: Start: 05-13-2024 End: 78-19-3329Fopmwpraj Result EncounterCorey Daniella DO Work Phone: noms External Department UnsolicitedStart: 05-13-2024 End: 66-94-7552Mgvxachjs Result EncounterCorey Daniella DO Work Phone: NOOJ External Department UnsolicitedStart: 03-04-2023 End: 49-71-6917Ndgpyt outpatient visit 15 Kami Durant APRN-BLAYNE Work Phone: [facility] OrthopedicsComment on above:Hx of total knee arthroplasty, right (Primary Dx)Start: 03-04-2023 End: 39-44-5151Odhhwiaptt hospital visit by Chelsea GUTIERREZ Work Phone: [facility] RadiologyStart: 11-01-2022 End: 17-98-1959qiimvezzvkRYXHE PARKERFacility:Z7Tzxmk: 06-25-2022 End: 98-91-4860Xkpuzl outpatient visit 15 Ca Rivera MD Work Phone: [facility] OrthopedicsComment on above:Hx of total knee arthroplasty, right (Primary Dx)Start: 06-25-2022 End: 70-27-6747Gypgnbqwid hospital visit by Guanaco Rivera MD Work Phone: [facility] RadiologyStart: 05-23-2022 End: 02-44-9150jspziyzdfgTG Prem Parnell Mare Work Phone: [facility] Work Phone: Start: 05-23-2022 End: 38-04-1067Onsqrvyvtm RecurringMD Prem Garvey Work Phone: [facility]-Physical Therapy [place]Start: 04-24-2022 End: 30-46-5756rgflxbdsovHD ABIODUN BREWER .Facility:L7Mzraw: 04-16-2022 End: 58-69-9360Ofvusk follow up visit related to original Milan Durant APRN-BLAYNE Work Phone: [facility] OrthopedicsComment on above:Hx of total knee arthroplasty, right (Primary Dx)Start: 03-26-2022 End: 18-66-5680Qwpvvy follow up visit related to original Milan Durant APRN-BLAYNE Work Phone: [facility] OrthopedicsComment on above:Hx of total knee arthroplasty, right (Primary Dx)Start: 03-26-2022 End: 02-21-7226Znfwyqabbz hospital visit by Chelsea GUTIERREZ Work Phone: [facility] RadiologyStart: 03-11-2022 End: 85-45-0765dccovclfjwRMZVJ FOSTERFacility:B9Hxvny: 02-11-2022 End: 51-45-9825mxwxoimkfaFY ABIODUN DANIELLA .Facility:E2Ffgqm: 02-06-2022 End: 11-05-2606iquonlfdbsBO ABIODUN DANIELLA .Facility:Z3Jvswt: 01-16-2022 End: 54-70-4281Gvsavn outpatient visit 40 Ca Rivera MD Work Phone: [facility] OrthopedicsComment on above:Right knee pain, unspecified chronicity (Primary Dx)Start: 01-16-2022 End: 12-06-3069Akgmmz outpatient visit 25 minutesJeremy L Riehm DO Work Phone: [facility] OrthopedicsComment on above:Right hip pain (Primary Dx); Primary localized osteoarthritis of right hipStart: 12-06-2021 End: 46-69-0423Vmfcag outpatient visit 25 minutesJeremy L Riehm DO Work Phone: [facility] OrthopedicsComment on above:Right hip pain (Primary Dx); 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, subsequent encounterStart: 39-12-6580tjvcwxbxodWR PREM HOY .Facility:Q7Nbfgc: 11-13-2021 End: 52-94-5291cxyycrljyaTC PREM HOY .Facility:F3Clbsy: 10-25-2021 End: 68-68-8015Ipilzf outpatient visit 25 minutesJeremy L Riehm DO Work Phone: [facility] OrthopedicsComment on above:Primary localized osteoarthritis of right hip (Primary Dx)Start: 10-10-2021 End: 46-79-0253Xnqvph outpatient new 30 Ca Rivera MD Work Phone: [facility] OrthopedicsComment on above:Primary localized osteoarthritis of right hip (Primary Dx); Pain in prosthetic joint, initial encounterStart: 08-13-2021 End: 58-43-2801ydnezgpqmdPdpcyt Bergen II Other [employer] Other Start: 35-14-7000Qntfuvxrf encounterRobert Bergen II [facility]opedicsStart: 08-12-2021 End: 05-19-9767oxxwmypyapNgfkgf Bergen II Other [employer]Str[employer] Other Start: 78-14-2215Shndywbvc encounterRobert Jaiden II [facility] OrthopedicsStart: 07-30-2021 End: 02-07-6604muuqntgplwVeeowh Bergen II Other [employer] Other Start: 95-81-1670Pnbyhbjmo encounterRobert Jaiden II [facility] OrthopedicsStart: 06-24-2021 End: 80-76-5026gbnyvbsbrzLziime Bergen II Other [employer] Other Start: 56-61-4139Zwtdmsvpn encounterRobert Bergen II [facility] OrthopedicsStart: 06-19-2021(Procedure) ShortThomas FelterErie Walden Behavioral Care Surgery CenterStart: 06-19-2021 End: 75-47-7846oosdqiohhyKiywdb Felter Other no[employer] Other Start: 06-05-2021 End: 96-19-2035jeqcbazmqbAilgge Bergen II Other [employer] Other Start: 74-77-6906Qbnymq outpatient new 45 minutes Jose Jaiden IIFPG [facility] OrthopedicsStart: 05-07-2021 End: 21-71-4265kztdfixclqQiyhz Berry Other [place] [employer] Other Start: 54-33-4503Hzyxxb outpatient visit 15 minutes Yehuda Alvarado OrthopedicsStart: 79-35-1555Tfuvtf outpatient visit 15 minutesYehuda Alvarado OrthopedicsStart: 09-07-2019 End: 87-74-2885Hggllfg encounter procedureDoconnie Garvey-[facility]Ray [facility] OrthoStart: 05-02-2019 End: 07-24-7040Dklkxxcsm to [facility] [place] Start: 12-02-2018 End: 95-29-8412Slijqaibau Recurringconnie aleida-Physical Therapy [place] Procedures DateProcedureProcedure DetailPerforming ClinicianStart: 01-62-9171Lsycs foot complete minimum 3 viewsStirais Ribeiro DPM Work Phone: Start: 72-69-8798Ngrmghnpfswm three-phase bone study Prem Garvey MD Work Phone: Start: 21-41-1917Z-reactive proteinJeremy L Riehm DO Work Phone: Start: 38-58-7832Scexxsbstnesi rate rbc automated Triny L Riehm DO Work Phone: Start: 68-70-9259RS Unspecified body regionJeremy L Riehm DO Work Phone: Start: 51-87-2637Rphizrljowangx aspir&/inj major jt/bursa w/usJeremy L Riehm DO Work Phone: Start: 47-57-9671Mpvvt X-ray of right hipPrem Garvey MD Work Phone: Start: 33-81-0981K-ray of right knee, three views Prem Garvey MD Work Phone: Start: 26-20-4001VH TOMOSYNTHESIS SCREENING BICorey Daniella DO Work Phone: Start: 86-24-6494DA DEXA AXIAL SKELETONCorey Daniella DO Work Phone: Start: 34-31-5525IclktrwrooiShygo Daniella DO Work Phone: Start: 81-13-1907Pyavwgutprw observation [Identifier] in Cervix by Cyto stainCorey Daniella DO Work Phone: Start: 23-68-7366Xfaerspremxtmy aspir&/inj major jt/bursa w/usJeremy L Riehm DO Work Phone: Start: 93-86-8967Ckxsqtsafzowxv aspir&/inj major jt/bursa w/usJeremy L Riehm DO Work Phone: Start: 49-39-9530N-ray of left kneeDouglas HoyHistory of operative procedure on kneeRobert Bergen II Other History of operative procedure on kneeHistory of right knee joint replacementJeremy L Riehm DO Work Phone: Plan of Treatment DateCare ActivityDetailAuthorStart: 83-20-1935ZPJ VACCINE (1 - 1-dose 75+ series)RSV VACCINE (1 - 1-dose 75+ series)[facility]: 02-14-2029 Screening for malignant neoplasm of cervixNOMS HealthcareStart: 02-27-2026 End: 84-15-5214Wvvxdfp encounter potnxrvja93/25/2026 10:00 AM EDT Procedure Visit NOMCesar GOLDSTEIN [address] [facility]ERE[facility] HUERTA, [id number] Abiodun Brewer DO [address] [place] [address] NOMCesar RAMOSGYNStart: 08-17-2025 End: 00-67-6181Ipfjehy encounter zpivikeiv19/12/2026 9:30 AM EST Office Visit [facility] [address] [place] [address] Triny Armenta, DO [address] [place] [address] [facility] OrthopedicsStart: 08-15-2025 End: 88-54-4028Urcvqwv encounter mieqxcpbv20/10/2026 10:00 AM EST Office Visit [facility] [address] [place] [address] Renetta Malik, DO [address] [place], [place] [phone] (Work) [facility] Physical [facility] RehabilitationStart: 10-39-3288Umchatfsi for malignant neoplasm of breast MammogramCox BransonStart: 05-04-2025 End: 35-01-2195Sqwkyng encounter procedureCentrastate Healthcare System Orthopedictart: 04-13-2025 End: 24-60-5472Flgjjij encounter qcndmejgc69/09/2025 1:45 PM EDT Office Visit [facility] [address] [place] [id number] Taiwo Ribeiro, DPSoheila [address] [place] [address] [facility]rivedDA[facility] Rory PodiatryComment on above:ArrivedStart: 03-30-2025 End: 36-96-0755Jbilqcg encounter glckjjcby33/25/2025 1:00 PM EDT Office Visit [facility] [address] [place] [address] Triny Armenta, DO [address] [place] [address] [facility] OrthopedicsStart: 10-77-3786APZMW-19 VACCINE ( season)COVID-19 VACCINE ( season)[facility] SystemStart: 40-57-1112Thjccoovn vaccinationINFLUENZA VACCINE (#1)[facility]: 02-27-2025 End: 35-16-1781MJ Bone 3 Phase ViewsNUC 3 PHASE LIMITED BONE SCAN Imaging Routine Chronic pain of right knee History of right knee joint replacement Expected: 02/27/2025, Expires: 02/27/2026[facility] SystemComment on above: Expected: 02/27/2025, Expires: 02/27/2026Start: 02-27-2025 End: 96-27-0003Gqklbvp encounter hlabxhoqk01/25/2025 1:30 PM EDT Office Visit [facility] [address] [place] [address] Triny Armenta, DO [address] [place] [address] [facility] OrthopedicsStart: 02-23-2025 End: 61-67-6095SF Breast - bilateral ScreeningBilateral screening mammogram Imaging Routine Breast cancer screening by mammogram Expected: 02/23/2025, Expires: 04/25/2026[facility] Work Phone: comment on above:Expected: 02/23/2025, Expires: 04/25/2026Start: 02-23-2025 End: 49-63-4322Jlydhmm encounter procedureNOSCRIPPS [facility] OBComment on above:Arrived Start: 12-27-2024 End: 86-18-3569Ebdsbay encounter dvydgmxlv21/24/2025 10:15 AM EDT Office Visit [facility] [address] [place] [address] Triny Armenta, DO [address] [place] [address] [facility] OrthopedicsStart: 93-56-9011Rbypu X-ray of right hipXR hip RT min 2V(w/wo pelvis)*[facility]: 05-75-6667VA Hip - right 2 ViewsK[facility] Health [facility]burgtart: 87-70-0242X-ray of right knee, three viewsXR knee RT 3V - NOT FOR ER USE [facility]: 97-22-2117CW Knee - right 3 Views [facility]: 76-43-7574CCZXK-19 VACCINE ( season)COVID-19 VACCINE ( season)[facility]: 03-06-2024 Influenza vaccinationInfluenza Vaccine (#1)[facility] HealthcareStart: 12-10-2023 Pneumococcal Vaccine: 65+ Years (1 of 1 - PCV)Pneumococcal Vaccine: 65+ Years (1 of 1 - PCV)[facility] HealthcareStart: 89-99-4748Bcupmozbz for malignant neoplasm of breastMAMMOGRAM SCREENING DISCUSSIONSouthern [facility] SystemStart: 03-06-2023 Influenza vaccinationINFLUENZA VACCINE (#1)[facility]: 03-04-2023 End: 36-22-7862Fbefkdx encounter rvhakjahw04/30/2023 Office Visit Orthopaedics Jordon Durant, AIR TUBE RELEASER-GRAVITY PROSPECTING SUPERVISOR [address] [place] [address] [facility] OrthopedicsStart: 06-25-2022 End: 41-28-6817Hrddecj encounter owvflcexj84/21/2022 Office Visit Orthopaedics Kee Rivera MD [address] [place] [address] [facility] OrthopedicsStart: 04-24-2022 End: 22-41-9939Reyajsq encounter itbjiwqrd34/20/2022 Office Visit Orthopaedics Triny Armenta DO [address] [place] [address] [facility] OrthopedicsStart: 04-16-2022 End: 22-65-1870Jpymopm encounter fyijwrzkx14/12/2022 Office Visit Orthopaedics Jordon Durant, AIR TUBE RELEASER-GRAVITY PROSPECTING SUPERVISOR [address] [place] [address] [facility] OrthopedicsStart: 36-87-2536Oshonzdiy vaccinationINFLUENZA VACCINE (#1)[facility]: 03-04-2022 End: 81-53-8878Edtcqndsyy and management of inpatientCentrastate Healthcare System PeriopComment on above: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, initial encounterREVISION ARTHROPLASTY KNEE - rightStart: 03-04-2022 End: 64-30-2097BTOVLBFG ARTHROPLASTY KNEEREVISION ARTHROPLASTY KNEE 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, initialencounter 03/04/2022 10:00 AM EDTAVI ONT ORStart: 02-13-2022 End: 27-77-5444zkkokwmlhg29/11/2022 Pre-Operative Nurse Assessment [facility] Pre AdmissionStart: 02-06-2022 End: 06-90-0620nlllsuvgkw42/04/2022 Pre-Operative Nurse Assessment [facility] Pre AdmissionStart: 01-17-2022 End: 25-83-1550Mhatyyc encounter zatqjyyev99/15/2022 Office Visit Orthopaedics Triny Armenta, DO [address] [place] [address] [facility] OrthopedicsStart: 12-06-2021 End: 18-15-1724[place] Bone 3 Phase ViewsNUC 3 PHASE LIMITED BONE SCAN Imaging Routine 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, subsequent encounter Expected: 12/06/2021, Expires: 12/06/2022[facility] SystemComment on above:Expected: 12/06/2021, Expires: 12/06/2022Start: 12-06-2021 End: 40-43-6949Zetjiws encounter aqzgddoog87/03/2022 Office Visit Orthopaedics Triny Armenta, DO [address] [place] [address] [facility] OrthopedicsStart: 62-36-6938DVHRI-19 VACCINE (4 - Booster for Pfizer series)COVID-19 VACCINE (4 - Booster for Pfizer series) [facility]: 77-67-6304WMNKZ-19 VACCINE (4 - Booster for Pfizer series)COVID-19 VACCINE (4 - Booster for Pfizer series)[facility]: 51-07-2523KSSOJ-19 VACCINE (4 - Pfizer series)COVID-19 VACCINE (4 - Pfizer series)[facility] SystemStart: 19-67-7459Bysaszryaazm vaccinationPNEUMOCOCCAL VACCINE SERIES (1 of 1 - PCV)[facility]: 73-60-5755Rnlsjmzomqcr Vaccine: 65+ Years (1 of 1 - PCV)Pneumococcal Vaccine: 65+ Years (1 of 1 - PCV) [facility] HealthcareStart: 77-80-2362Lnuagc vaccine hzv live for subcutaneous use ZOSTER (SHINGLES) VACCINE (1 of 2)[facility] SystemStart: 12-10-2003 ColonoscopyCOLORECTAL CANCER SCREENING DISCUSSIONSelect [facility], [facility]art: 68-52-1646Rybhwspxu for malignant neoplasm of colonCOLORECTAL CANCER SCREENING DISCUSSIONSelect [facility], [facility]art: 77-28-4532Jpmdxbp lipid profileLIPID SCREENINGSelect [facility], [facility]art: 07-27-3430Apcsk panelLIPID SCREENINGSelect [facility], [facility]art: 61-76-3069Mwgcqajyx for malignant neoplasm of breast MAMMOGRAM SCREENING DISCUSSIONSelect [facility], [facility]: 73-62-2875Qswwpcbgy mammographyMAMMOGRAM SCREENING DISCUSSIONSelect [facility]: 12-10-1979 Screening for malignant neoplasm of cervixCERVICAL CANCER SCREENING DISCUSSION [facility]: 88-22-5409Xdpez diphtheria, tetanus and acellular pertussis (DTaP) vaccinationTDAP (ADULT)[facility] [place]: 1976 Tetanus vaccinationTETANUSASumma Health SystemStart: 96-75-3568RLB screeningHIV SCREENING DISCUSSIONSelect [facility], [facility]art: 77-62-3448Vsaixwbwo B vaccination HEP B VACCINE (1 of 3 - 3-dose series)[facility] SystemStart: 1958 Hepatitis C antibody, confirmatory testHEPATITIS C VIRUS SCREENINGSelect [facility], [facility]art: 00-31-4902Fhtnetoux C screeningHEPATITIS C VIRUS SCREENINGSelect [facility], [facility]art: 38-53-0884Cscbjqdrl for malignant neoplasm of colonNOMS HealthcareStart: 31-34-2928Idzfdvqwl for osteoporosisDEXA SCAN DISCUSSIONSelect [facility], [facility]ontart: 85-45-6605Zskzbvu vaccinationTrinity Health System [facility] Campus Fibrin D-dimer [Presence] in Platelet poor plasma by Latex agglutination [facility] HospitalRadiography for bone length studiesXR BONE LENGTH STUDY Imaging Routine Pain in prosthetic joint, initial encounter 10/10/2021 12:54 PM SportsBeepRadiography for bone length studiesXR BONE LENGTH STUDY Imaging Routine Hx of total knee arthroplasty, right 06/25/2022 10:52 AM Outline App Work Phone: XR Knee - left 3 ViewsXR KNEE LEFT 3 VIEWS Imaging Routine Pain in prosthetic joint, initial encounter 10/10/2021 12:54 PM SportsBeepXR Knee - right 3 ViewsXR KNEE RIGHT 3 VIEWS Imaging Routine Pain in prosthetic joint, initial encounter 10/10/2021 12:54 PM SportsBeepXR Knee - right 3 ViewsXR KNEE RIGHT 3 VIEWS Imaging Routine Hx of total knee arthroplasty, right 03/26/2022 1:03 PM SportsBeepXR Knee - right 3 ViewsXR KNEE RIGHT 3 VIEWS Imaging Routine Hx of total knee arthroplasty, right 04/16/2022 1:26 PM SportsBeepXR Knee - right 3 ViewsXR KNEE RIGHT 3 VIEWS Imaging Routine Hx of total knee arthroplasty, right 06/25/2022 10:52 AM Outline AppXR Knee - right 3 ViewsXR KNEE RIGHT 3 VIEWS Imaging Routine Hx of total knee arthroplasty, right 03/04/2023 10:58 AM SportsBeepXR Knee - right 3 ViewsXR KNEE RIGHT 3 VIEWS Imaging Routine History of revision of total replacement of right knee joint 09/16/2024 10:46 AM [employer] Work Phone: XR Knee - right 3 ViewsXR KNEE RIGHT 3 VIEWS Imaging Routine Right knee pain, unspecified chronicity 11/17/2024 1:41 PM [employer] Work Phone: XR Pelvis and Hip - right ViewsXR HIP WITH PELVIS RIGHT Imaging Routine Right hip pain 11/17/2024 1:41 PM SportsBeep [facility] Immunizations Immunization DateImmunizationNotesCare JxcjkpupQmofykyf76-86-7229qxaqtyslk, high dose seasonal, preservative-freeSteven Rusher DPM Work Phone: [facility] BransonGsneqvprtz31-59-8261fypgcmavm virus vaccine, unspecified formulationJeremy Riehm DO Work Phone: [facility] HospitalBxxbca61-04-0759Mcqmgskbr, injectable, Madin Chester Canine Kidney, preservative free, quadrivalentSteven Rusher DPM Work Phone: [facility] BransonGexggoivwd46-77-3870rskqjkczu virus vaccine, unspecified formulationChad Carleen AIR TUBE RELEASER-GRAVITY PROSPECTING SUPERVISOR Work Phone: [facility] HospitalQmnwrf20-26-5681Rhlpbysto, injectable, Madin Catie Canine Kidney, preservative free, quadrivalentSteven Rusher DPM Work Phone: [facility] BransonEpwsuvjgsm85-75-0831jpobvzpuv virus vaccine, unspecified formulationJeremy Riehm DO Work Phone: [facility] HospitalJpeifw76-32-2907Qmhcevdss, injectable, Madin Catie Canine Kidney, preservative free, quadrivalentSteven Rusher DPM Work Phone: [phone] BransonNpykzlwjxy57-27-1112ldlndirfs, seasonal, injectableSteven Rusher DPM Work Phone: [facility] BransonVdqjirfvqv54-33-1995cjywxxhwp, injectable, quadrivalent, preservative freeSteven Rusher DPM Work Phone: [phone] BransonRzxakbztge53-88-9982Adybpvq -40 mgYehuda Camara Other [employer] [place] [employer] Other 03-062481-15-7072Hvmejgr -40 Deshawnzain Camara Other noStr[employer] Other [id number] Berry Other [employer] Other [id number] Berry Other [employer] Other 10011825-11-0256JttzlmroBskxn Berry Other [employer] Other 10267726-45-9535jmwbeadfk, injectable, quadrivalent, preservative freeSteven Rusher DPM Work Phone: [employer] Iancapqxxu05-34-9645Drsjhld -40 Laci Camara Other [employer] Other [id number] -40 Laci Camara Other [employer] Other 11033441-30-8148qavvakgfu, injectable, quadrivalent, preservative freeSteven Rusher DPM Work Phone: DysonicsXhzupltseb06-56-3148Lehzcnx -40 Laci Camara Other [employer] Other [id number] -40 Laci Camara Other [employer] Other Payers DatePayer CategoryPayerPolicy [id number] 2025Unknown [id number] Managed Care (unspecified)MEDICARE SUPPLEMENT .[id number] [id number] Cross Blue ShieldBCBS Alis VALENZUELA [id number]535.98501-16-6516Mokzoea [id number] [id number]-t9pf-16p0-l50u-3478tkt06zby81-69-3994Pjukptx 1.2.840.756298.1.13.172.2.7.3.439[id number] 9k72v445-ix37-3363-ydym-ab77v[id number] qz3a6770-561g-472a-88z6-4ds3fo8d977v85-45-4560XazpbflKNH893H3344550-32-5910 [id number] .1.506262.3.57[id number] ..1.522089.3.579.[id number] .1.550023.3.57[id number] 2.16.840.1.592128.3.579.[id number] 2.16.840.1.058809.3.579.[id number] 2.16.840.1.163300.3.579.[id number] 2.16840.1.942782.3.57[id number] 2.16840.1.020592.3.57[id number] 2.840.1.661603.3.57[id number] 2.840.1.322811.3.57[id number] 2.840.1.485339.3.57[id number] 2.0.1.160754.3.57[id number] 2.840.1.206010.3.57[id number] 2.840.1.815029.3.57[id number] 2.840.1.294467.3.57[id number] 2.840.1.004876.3.57[id number] 2.840.1.012709.3.57[id number] 2.840.1.172536.3.57[id number] 2.16.840.1.109594.3.57[id number] 2.16.840.1.022049.3.57[id number] 2.16.840.1.358746.3.57[id number] 2.16.840.1.5[id number] 2.16.840.1.088475.3.579.2.531 [id number] 2.16.840.1.4[id number] 2.16.840.1.8[id number] 2..840.1.731601.3.579.2.531 Social History DateTypeDetailFacilityStart: 05-02-2019 End: 28-21-9071Yakxxyy smoking status NHISNever smoked tobacco (finding) [facility]trStart: 09-22-9284Yji [facility]: [facility]-10[facility]2021 End: 38-78-5122Qfgezzr use and exposureSmokeless tobacco non-userSouthern Ohio Medical Center SystemStart: 10-10-2021 End: 76-55-0829Gswgymt intakeEx-drinker (finding)[facility] SystemStart: 79-68-7709Qjr Assigned At BirthNot on fileSouthern Ohio Medical Center SystemStart: 03-04-2023 End: 44-79-4237Sqn Assigned At [facility] [employer] Other Start: 02-22-2022 End: 95-40-0837Ykikmvwy to SARS-CoV-2 (event)Not sureSouthern Ohio Medical Center SystemStart: 03-04-2023 End: 35-91-4047Xgbmyws of Social functionAvita Health SystemStart: 09-04-2021 End: 45-23-2368RgeIhhmiq (finding)[facility]: 02-15-2024 End: 06-97-3134Pnelxgpug beverage intakeCurrent drinker of alcohol (finding)[facility] HealthcareStart: 05-47-5972Oxggkzi Comment1-2 drinks less than monthly in the past year, Caffeine intake: 1-2 cups per dayDAVIS HOSPITAL AND MEDICAL CENTER HealthcareStart: 40-32-4785Xcc [facility] Medical Equipment Procedure CodeEquipment CodeEquipment Original TextEquipment IdentifierDates Arthroplasty, knee, total, minimally invasiveFDAStart: 78-34-2076Afnnguaumrzf, knee, total, minimally invasiveART SURF LT 11MM C-D 6-9 VEFDAStart: 09-27-2018 Arthroplasty, knee, total, minimally invasiveART SURF LT 11MM C-D 6-9 VEFDA Start: 16-71-9597Oneygqqybgbr, knee, total, minimally invasiveART SURF LT 11MM C-D 6-9 VEFDAStart: 79-47-7109Ibbtpisrhsku, knee, total, minimally invasiveART SURF LT 11MM C-D 6-9 VEFDAStart: 73-55-8067Xpwmnsbludke, knee, total, minimally invasiveART SURF LT 11MM C-D 6-9 VEFDAStart: 33-56-7022Cjrqnfyasmzp, knee, total, minimally invasiveOrthopaedic cement, non-medicated ([id number] FDAStart: 33-78-3045Muftmeuboyya, knee, total, minimally invasiveART SURF LT 11MM C-D 6-9 VEFDAStart: 09-27-2018 Arthroplasty, knee, total, minimally invasiveCEMENT BONE 1X40 RADIOPAQUEFDA Start: 52-62-5875Krlhsrrcnabp, knee, total, minimally invasiveCEMENT BONE 1X40 RADIOPAQUEFDAStart: 11-99-0105Alnflaaeidue, knee, total, minimally invasiveFEMUR PERSONA NARROW LEFT 8FDAStart: 32-15-5978Rmhbmqxsrpem, knee, total, minimally invasivePATELLA PERSONA 32MM VIVACIT-EFDAStart: 76-72-4319Sgmjfdzdzxkl, knee, total, minimally invasiveTIBIA PERSONA LEFT SIZE CFDAStart: 09-27-2018 Arthroplasty, knee, total, minimally invasiveUncoated knee femur prosthesis ()[id number] FDAStart: 13-81-7153Cwrzmyczdpgi, knee, total, minimally invasiveTibial insert()[id number] FDAStart: 96-96-1336Oosaubrohvge, knee, total, minimally invasivePolyethylene patella prosthesis()[id number] FDAStart: 05-02-2019 Arthroplasty, knee, total, minimally invasiveUncoated knee tibia prosthesis, metallic()[id number] FDAStart: 05-02-2019 Arthroplasty, knee, total, minimally invasiveART SURF LT 11MM C-D 6-9 VEFDA Start: 47-66-5976Xcweqecjirvs, knee, total, minimally invasiveCEMENT BONE 1X40 RADIOPAQUEFDAStart: 45-53-8584Hlgzgevcmsqo, knee, total, minimally invasive CEMENT BONE 1X40 RADIOPAQUEFDAStart: 36-87-4138Tlyalvnhcjvr, knee, total, minimally invasiveFEMUR PERSONA NARROW LEFT 8FDAStart: 82-25-6306Fpcybqkwpovf, knee, total, minimally invasivePATELLA PERSONA 32MM VIVACIT-EFDAStart: 86-10-1395Qjhnpbltsubh, knee, total, minimally invasiveTIBIA PERSONA LEFT SIZE C FDAStart: 71-82-8250Kdancffrehpw, knee, total, minimally invasiveART SURF LT 11MM C-D 6-9 VEFDAStart: 86-86-8500Kjjlwvldztev, knee, total, minimally invasive CEMENT BONE 1X40 RADIOPAQUEFDAStart: 78-09-0672Lgdeqffzyeji, knee, total, minimally invasiveCEMENT BONE 1X40 RADIOPAQUEFDAStart: 86-67-2394Vajbnvvfiiai, knee, total, minimally invasiveFEMUR PERSONA NARROW LEFT 8FDAStart: 09-27-2018 Arthroplasty, knee, total, minimally invasivePATELLA PERSONA 32MM VIVACIT-EFDA Start: 03-51-1328Ocfaxpquumka, knee, total, minimally invasiveTIBIA PERSONA LEFT SIZE CFDAStart: 75-80-1523Zolrakoyhvdc, knee, total, minimally invasiveART SURF LT 11MM C-D 6-9 VEFDAStart: 48-29-5318Jouhbymsmcnm, knee, total, minimally invasiveCEMENT BONE 1X40 RADIOPAQUEFDAStart: 87-44-0177Rtwrzorhdhqj, knee, total, minimally invasiveCEMENT BONE 1X40 RADIOPAQUEFDAStart: 09-27-2018 Arthroplasty, knee, total, minimally invasiveFEMUR PERSONA NARROW LEFT 8FDA Start: 60-12-7113Hqvrqlzmzpuj, knee, total, minimally invasivePATELLA PERSONA 32MM VIVACIT-EFDAStart: 21-61-9059Pchygfsuhjid, knee, total, minimally invasive TIBIA PERSONA LEFT SIZE CFDAStart: 90-02-2891Xzlqdxcoxzjr, knee, total, minimally invasiveART SURF LT 11MM C-D 6-9 VEFDAStart: 47-61-0380Memscoenlbuo, knee, total, minimally invasiveCEMENT BONE 1X40 RADIOPAQUEFDAStart: 09-27-2018 Arthroplasty, knee, total, minimally invasiveCEMENT BONE 1X40 RADIOPAQUEFDA Start: 95-87-1501Syclirgfuszf, knee, total, minimally invasiveFEMUR PERSONA NARROW LEFT 8FDAStart: 51-44-7324Kpcrkmsqejwu, knee, total, minimally invasive PATELLA PERSONA 32MM VIVACIT-EFDAStart: 36-40-5329Ejwxswvhfpje, knee, total, minimally invasiveTIBIA PERSONA LEFT SIZE CFDAStart: 17-22-8300Vvemqdegirwo, knee, total, minimally invasiveART SURF LT 11MM C-D 6-9 VEFDAStart: 09-27-2018 Arthroplasty, knee, total, minimally invasiveCEMENT BONE 1X40 RADIOPAQUEFDA Start: 84-39-5887Threxrheqzet, knee, total, minimally invasiveCEMENT BONE 1X40 RADIOPAQUEFDAStart: 79-22-2539Aqgcommkhygx, knee, total, minimally invasiveFEMUR PERSONA NARROW LEFT 8FDAStart: 96-51-2863Oqhwjvazdyrq, knee, total, minimally invasivePATELLA PERSONA 32MM VIVACIT-EFDAStart: 76-03-0499Dwtrrgxqmcut, knee, total, minimally invasiveTIBIA PERSONA LEFT SIZE CFDAStart: 09-27-2018 Arthroplasty, knee, total, minimally invasiveART SURF LT 11MM C-D 6-9 VEFDA Start: 55-66-6584Seuljdjbhvly, knee, total, minimally invasiveCEMENT BONE 1X40 RADIOPAQUEFDAStart: 26-92-6993Gfjrfsdoblcw, knee, total, minimally invasive CEMENT BONE 1X40 RADIOPAQUEFDAStart: 09-93-6807Luprkcjewuby, knee, total, minimally invasiveFEMUR PERSONA NARROW LEFT 8FDAStart: 83-22-8632Paedylpyxmnh, knee, total, minimally invasivePATELLA PERSONA 32MM VIVACIT-EFDAStart: 89-54-5229Cqczrsfqyail, knee, total, minimally invasiveTIBIA PERSONA LEFT SIZE C FDAStart: 12-12-3734Wzyrauwwfbck, knee, total, minimally invasiveART SURF LT 11MM C-D 6-9 VEFDAStart: 58-62-2824Knezoolnhehq, knee, total, minimally invasive CEMENT BONE 1X40 RADIOPAQUEFDAStart: 60-94-3623Euvyozsvumjx, knee, total, minimally invasiveCEMENT BONE 1X40 RADIOPAQUEFDAStart: 13-44-2584Jhzixjktzpfu, knee, total, minimally invasiveFEMUR PERSONA NARROW LEFT 8FDAStart: 09-27-2018 Arthroplasty, knee, total, minimally invasivePATELLA PERSONA 32MM VIVACIT-EFDA Start: 31-89-4091Khmozqovyjdf, knee, total, minimally invasiveTIBIA PERSONA LEFT SIZE CFDAStart: 83-77-0148Lfgedcriedia, knee, total, minimally invasiveART SURF LT 11MM C-D 6-9 VEFDAStart: 87-71-3415Hxoxxgumyygd, knee, total, minimally invasiveCEMENT BONE 1X40 RADIOPAQUEFDAStart: 19-57-5669Xioaociacild, knee, total, minimally invasiveCEMENT BONE 1X40 RADIOPAQUEFDAStart: 09-27-2018 Arthroplasty, knee, total, minimally invasiveFEMUR PERSONA NARROW LEFT 8FDA Start: 96-30-2328Fqphvfjpnbmv, knee, total, minimally invasivePATELLA PERSONA 32MM VIVACIT-EFDAStart: 77-14-2484Cqsyiemmamiw, knee, total, minimally invasive TIBIA PERSONA LEFT SIZE CFDAStart: 16-92-2072Qyjgimoq Platform [id number]_nrf Start: 02-32-4135Bwfixbm R & G Bone Cement High-Viscosity With Gentamicin - [id number]_wviEzhzf: 26-57-4902Ojeytio R & G Bone Cement High-Viscosity With Gentamicin - [id number]_bwaPlyvo: 53-34-1812Gyvhgliz Distal Femoral [id number]_nigWpeoz: 62-11-7148Qtlenims Crs [id number]_ceiBuake: 29-37-4265Qsbgthiy Tibial Base Rotating [id number]_pioRcenc: 03-04-2022 Revision Tibial Sleeve [id number]_kvaHvepi: 32-33-1602Qzgspone Pressfit [id number]_ohzDnadm: 96-18-8698Ejalnnpb Pressfit [id number]_xecPzlue: 68-19-3059Wqyfvhyt Distal Femoral [id number]_xuySevqw: 76-47-4162Pmj 1 strip In Vitro once daily for 100 days Dx: E11.9Start: 08-11-2024 Goals DatePatient GoalDesired Activity/State Functional Status BlxcIwqcmynjzwIbwtdcTygpeqjr97-72-1736Pix you deaf, or do you have serious difficulty hearingNo 03/04/2022 4:19 PM Glo Sagastume RN [facility]08-30-2022Are you blind, or do you have serious difficulty seeing, even when wearing glassesNo 03/04/2022 4:19 PM Glo Sagastume RN [facility]08-30-2022Do you have serious difficulty walking or climbing stairsYes 03/04/2022 4:19 PM Glo Sagastume RN [facility] 22-78-5324Hz you have difficulty dressing or bathingNo 03/04/2022 4:19 PM Glo Sagastume RN [facility] HospitalXzxswz71-21-7875Hvxvuan of a physical, mental, or emotional condition, do you have difficulty doing errands alone such as visiting a physician's office or shoppingNo 03/04/2022 4:19 PM Glo [facility]astume RN [facility] Mental Status CjsdXnnfgqqerfBxbgzkVpaperts12-54-3425Qfreilv of a physical, mental, or emotional condition, do you have serious difficulty concentrating, remembering, or making decisionsNo 03/04/2022 4:19 PM EDT Glo Rey, RN [facility] Clinical Notes 09-03-2018 to 05-04-2025 Note Date & ShetVavuFcprprye75-04-6340 History of Present illness Narrative* Norma Wilson - 05/04/2025 9:30 AM EDT Ortho Nurse - Established Patient Intake Room#: Room 1---Review of bone scan. Patient las seen in our ofice 11/17/24. SF was to start treating her conservatively. Made a referral to DR. Armenta for an intraarticular right hip injections. Saw Dr. Armenta on 01/26/25 and and received a hip injection. Saw Mary again on 03/30/25 he referred her back to for a further opinion regarding the knee and review of her bone scan. She was told to continue Voltaren and tylenol. The injection did not help the knee. Completed PT and states that it didn'thelp. Saw Dr. Armenta today he stated that the bone scan [...] is stiff and hard to movie. Pain 02/12 Denies nicotine Date: 05/04/2025 9:14 AM Patient: Katt Rahman MR#: [id number] : 1960 Age: 64 y.o. Referring Physician: [...] by Nasal route once for 1 dose. Sparks into the nose as directed. Call 911. [...] KNEE Right 03/04/2022 Laterality: Right; Surgeon: Kee Rivera MD; Location: [facility] OR KNEE REPLACEMENT Right 05/02/2019 Dr. Laly Camara KNEE REPLACEMENT Left 09/27/2018 Dr. Camara * Kee Rivera MD - 05/04/2025 9:30 AM EDT HPI: Patient is here today for evaluation of right knee pain. Primary complaint is pain, impairmentin the knee and a decreased quality of life secondary to her right knee pain. She saw Dr. Mary ramires referred her for a bone scan due [...] joint space, subchondral sclerosis, osteophyte formation, and qxli-hj-xvou contact. Plain film radiographs were reviewed. She [...] would also like Katt to see Dr. Armenta for an intraarticular right hip joint injection [...] KNEE Right 03/04/2022 Laterality: Right; Surgeon: Kee Rivera MD; Location: [facility] OR KNEE REPLACEMENT [...] , Rfl: Pantoprazole [address] tablet DR, Take 1 tablet by mouth daily., Disp: [...] by Nasal route once for 1 dose. Sparks into the nose as directed. Call 911. [...] Lisinopril Cough Sulfamethoxazole-Trimethoprim Rash documented in this [facility]10-30-2025 History of Present illness Narrative* Danika Cruz - 05/04/2025 8:30 AM EDT [...] better with the hip. Established with Dr. Rivera Hip joint injection in January helped hip [...] chronic orthopedic conditions. Visit Vitals Temp 97.6 F (36.4 C) (Temporal) Ht 1.626 m (5' 4 ) Wt 87.2 kg (192 lb 4.8 oz) BMI 33.01 kg/m *Time components listed in minutes below. This data may or may not be needed for insurance reimbursement purposes. Reviewing clinical note(s) from previous visit/ER/urgent care/PCP/other specialists 4 Review of medical history 4 Review of medical insurance biller or workplace trainer and assessor note 4 Independently obtain and review medical history and history of present illness with patient 4 Other counseling and coordination of care 7 Updating patient chart, documentation of clinical encounter and signing of orders 7 *Portions of this note may have been created with [employer], other software, or a scribe, which leads to grammatical and typographical errors which are not outbound sales representative of the intent with my spoken words. * Triny Armenta, DO - 05/04/2025 8:30 AM EDT Chief [...] better with the hip. Established with Dr. Rivera Hip joint injection in January helped hip, [...] could be needed. She meets with Dr. Rivera today to discuss further workup or treatment [...] chronic orthopedic conditions. Visit Vitals Temp 97.6 F (36.4 C) (Temporal) Ht 1.626 m (5' 4 ) Wt 87.2 kg (192 lb 4.8 oz) BMI 33.01 kg/m *Time components listed in minutes below. This data may or may not be needed for insurance reimbursement purposes. Reviewing clinical note(s) from previous visit/ER/urgent care/PCP/other specialists 1 Review of medical history 1 Review of medical insurance biller or workplace trainer and assessor note 1 Independently obtain and review medical history and history of present illness with patient 4 Other counseling and coordination of care 7 Updating patient chart, documentation of clinical encounter and signing of orders 7 *Portions of this note may have been created with [employer], other software, or a scribe, which leads to grammatical and typographical errors which are not outbound sales representative of the intent with my spoken words. Clinical web assistant/AT/MA was acting as a scribe today for this note. I have performed all essentialcomponents of the history, and physical exam. I have confirmed the diagnosis and developed a plan of care at this visit. I have reviewed the note following the visit and have made edits as appropriate to my evaluation and plan of care. Triny Armenta DO documented [facility] History of Present illness Narrative* Taiwo Ribeiro DPM - 04/13/2025 1:45 PM EDT Images from the original note were not included. Subjective Patient ID: Katt Rahman is a 64 y.o. 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 Patient states hurts to walk, ongoing since last visit with us in 2020.Patient states has gotten worse within the last few months. Pt states she is also having knee,hip, and back pain, states her right knee replacement is loose, relates arthritis in her feet. Pt uses voltaren, icing, patient wears inserts. PCP: Dr. Mare CALLES 01/2025, A1C: 6.9 ( 05/2024), BS: 150s, SS: 7). HPI Patient last in clinic in March of 2021. Chief complaint: Bilateral forefoot pain; typically much worse or intense on the left. Denies interval injury or trauma since last visit here. Denies pop or snap sensation. Patient relates intermittent symptoms multiple years; again persistent and somewhat progressive over the past 6 months or so. Describes deep aching-like discomfort, with occasional sharp stabbing sensations; appears to be primarily localized about the 2nd MTP joint; with mild localized swelling; without warmth or discoloration. Symptoms are notably aggravated with extended weight-bearing, walking or physical activity; generally relieved with relative rest and/or activity modification. Modified Powerstep orthoses have generally been beneficial by history. Tylenol and/or topical agents are increasingly less helpful. Medications Current Outpatient Medications: acetaminophen (Tylenol) 500 MG tablet, Take by mouth, Disp: , Rfl: Calcium Carbonate-Vit D-Min (CALCIUM 1200 PO), Take 1 capsule by mouth Daily, Disp: , Rfl: empagliflozin (Jardiance) 10 MG, Take by mouth, Disp: , Rfl: Januvia 100 MG tablet, Take 100 mg by mouth Daily, Disp: , Rfl: losartan (Cozaar) 100 MG tablet, Take 50 mg by mouth Daily, Disp: , Rfl: pantoprazole (ProtoNix) 40 MG EC tablet, Take 40 mg by mouth in the morning. Take before meals. Do not crush, chew, or split., Disp: , Rfl: simvastatin (Zocor) 20 MG tablet, Take 20 mg by mouth Daily, Disp: , Rfl: glimepiride (Amaryl) 4 MG tablet, Take 8 mg by mouth in the morning. Take before meals. (Patient not taking: Reported on 04/13/2025), Disp: , Rfl: meloxicam (Mobic) 7.5 MG tablet, if needed (Patient not taking: Reported on 04/13/2025), Disp: , Rfl: metFORMIN (Glucophage) 1000 MG tablet, Take 1,000 mg by mouth in the morning and 1,000 mg in the evening. (Patient not taking: Reported on 04/13/2025), Disp: , Rfl: Allergies Pioglitazone, Sulfa antibiotics, Diclofenac, Tramadol, Lisinopril, and Sulfamethoxazole-trimethoprim Past Surgical History Past Surgical History: Procedure Laterality Date FL GUIDED ASPIRATION OR INJECTION LARGE JOINT BILATERAL Bilateral 10/25/2021 FL GUIDED ASPIRATION OR INJECTION LARGE JOINT BILATERAL FL GUIDED ASPIRATION OR INJECTION LARGE JOINT BILATERAL Bilateral 01/16/2022 FL GUIDED ASPIRATION OR INJECTION LARGE JOINT BILATERAL FL GUIDED ASPIRATION OR INJECTION LARGE JOINT BILATERAL Bilateral 01/26/2025 FL GUIDED ASPIRATION OR INJECTION LARGE JOINT BILATERAL OVARIAN CYST SURGERY 1998 TOTAL KNEE ARTHROPLASTY Bilateral Family History Family History Problem Relation Name Age of Onset Hypertension Mother Diabetes Mother Heart disease Mother Diabetes Father Hypertension Father Cancer Sibling Objective General assessment: Alert and oriented. Pleasant disposition. Wearing new balance footwear with Powerstep orthoses. Vascular: DP 2/4 bilateral. PT 2/4 bilateral. CFT brisk all digits. Gradient temperature: Warm-warm bilateral. Unremarkable for ankle edema. Neurologic: Tactile and light touch sensation intact. No focal motor or sensory deficits are noted. Negative Tinel's along the tarsal canal. Dermatologic: Skin turgor is good. Web space areas are clean, dry, non-inflamed. Unremarkable for eczema or dermatitis. Orthopedic: Range of motion: Passive ankle dorsiflexion is limited, consistent with mild gastrocnemius equinus.Otherwise maintains functional ankle and subtalar joint range of motion. First MTP joint range of motion bilateral is mildly limited but functional; without guarding or crepitus. Deformity: HAV deformity left; flexible and reducible. The bunion eminence is minimally inflamed, non-tender, without callus formation. Focused exam left foot: Sharp joint line tenderness 2nd MTP joint, with mild localized swelling, without warmth or discoloration. Passive range of motion demonstrates some guarding, without obvious crepitus. Unremarkable for dorsal subluxation. Also note moderate 2nd interspace tenderness, without Linda's click or Tinel sign. Diffuse midfoot tenderness. Central digits remain in near rectus position without sagittal plane deformity. Focused exam right foot: Mild tenderness 2nd MTP joint, without swelling, warmth or discoloration. Forefoot structures otherwise minimally tender. Midfoot structures are minimally tender. Radiology: RADIOGRAPHS: 3 views left foot: Weight-bearing: DP, oblique, lateral: 04/13/2025: Unremarkable for acute osseous or joint pathology. Unremarkable for fracture or stress fracture changes. 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 Me tatarsal parabola acceptable. HAV deformity, consistent with clinical findings, lateral deviation of the 1st MTP joint. Fairly extensive arthritic changes of the 2nd TMT joint. 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 Central metatarsalgia bilateral by history. Plan: Review of clinical and x-ray findings, differential diagnosis, etiology and contributing/aggravating factors, treatment strategy, rationale and objectives. Rx: Prednisone taper dose. Sizing and fitting of Powerstep orthoses: Central metatarsal pad modification. Patient noted favorable placement hand comfort upon leaving the clinic. Central metatarsal pad modification of old Powerstep orthoses. Discussed use of topical agents, including salon pas patches etc.. Discourage any barefoot walking. Follow up: Patient prefers to monitor response and follow as needed. Procedure: This note was created with the assistance of a speech recognition program. While intending to generate a timely document that accurately reflects the content of the visit, no guarantee can be provided that every grammatical or spelling mistake has been or will be identified or corrected. Thank you for your understanding. Taiwo Ribeiro DPM documented in this encounterCox [id number] History of Present illness Narrative* Danika Cruz - 03/30/2025 1:00 PM EDT Chief Complaint Patient presents with Right Hip - Follow-up And results for labs Right Knee - Follow-up Pain Radiation To: pain stays in the knee Pain Duration: 3 yrs Pain Frequency: frequent Pain Quality: aching, sharp Factors That Aggravate Pain: activity, other (see comments) (squatting, standing for long periods of time, stairs) Factors That Relieve Pain: rest, medications, over the counter (OTC) Re-evaluation with concerns for right hip related symptoms. Previous right hip joint injection done, 01/26/25. Worsening of symptoms lately. IMPRESSION/PLAN: Pertinent medical office records and imaging studies reviewed. Xrays from 11/17/24 demonstrated moderate right hip degenerative changes. 02-17-25 Bone scan suggesting losing of the knee replacement. Medical decision making has been discussed with patient including potential further work-up, surgical and non-surgical options. Continue current conservative treatment. Medication management: Continue Voltaren and Tylenol We have discussed additional workup and treatment that could be needed. Follow-up in 3 months for office visit re-evaluation. This office visit encompasses care, provided by me, who is serving as the continued focal point forthe patient's chronic pain and longitudinal orthopedic condition. Chronic orthopedic condition/s for this encounter may include arthritis, otherwise possibly listed as degenerative joint disease (DJD), osteoarthritis (OA), or other common chronic orthopedic conditions. Visit Vitals Temp 97.2 F (36.2 C) (Temporal) Ht 1.626 m (5' 4 ) Wt 87.7 kg (193 lb 6.4 oz) BMI 33.20 kg/m *Time components listed in minutes below. This data may or may not be needed for insurance reimbursement purposes. Reviewing clinical note(s) from previous visit/ER/urgent care/PCP/other specialists 4 Review of medical history 4 Review of medical insurance biller or workplace trainer and assessor note 4 Independently obtain and review medical history and history of present illness with patient 4 Other counseling and coordination of care 7 Updating patient chart, documentation of clinical encounter and signing of orders 7 *Portions of this note may have been created with [employer], other software, or a scribe, which leads to grammatical and typographical errors which are not outbound sales representative of the intent with my spoken words. * Triny Reese Leoedison, DO - 03/30/2025 1:00 PM EDT Chief Complaint Patient presents with Right Hip - Follow-up And results for labs Right Knee - Follow-up Pain Radiation To: pain stays in the knee Pain Duration: 3 yrs Pain Frequency: frequent Pain Quality: aching, sharp Factors That Aggravate Pain: activity, other (see comments) (squatting, standing for long periods of time, stairs) Factors That Relieve Pain: rest, medications, over the counter (OTC) Established with Dr. Rivera. Re-evaluation with concerns for right hip related symptoms. Previous right hip joint injection done, 01/26/25 which really helped the hip. The R hip injection however, did NOT help the knee. Worsening of symptoms lately, especially R knee. We are reviewing recent labs and bone scan. IMPRESSION/PLAN: Pertinent medical office records and imaging studies reviewed. Recent ESR and CRP WNL Xrays from 11/17/24 demonstrated moderate right hip degenerative changes. 02-17-25 Bone scan suggesting loosening of the knee R knee replacement. Medical decision making has been discussed with patient including potential further work-up, surgical and non-surgical options. I'm going refer her back to Dr. Rivera for further opinion regarding the knee and bone scan findings. Continue current conservative treatment. Medication management: Continue Voltaren and Tylenol We have discussed additional workup and treatment that could be needed. Follow-up in 2 months for office visit re-evaluation. This office visit encompasses care, provided by me, who is serving as the continued focal point forthe patient's chronic pain and longitudinal orthopedic condition. Chronic orthopedic condition/s for this encounter may include arthritis, otherwise possibly listed as degenerative joint disease (DJD), osteoarthritis (OA), or other common chronic orthopedic conditions. Visit Vitals Temp 97.2 F (36.2 C) (Temporal) Ht 1.626 m (5' 4 ) Wt 87.7 kg (193 lb 6.4 oz) BMI 33.20 kg/m *Time components listed in minutes below. This data may or may not be needed for insurance reimbursement purposes. Reviewing clinical note(s) from previous visit/ER/urgent care/PCP/other specialists 4 Review of medical history 4 Review of medical insurance biller or workplace trainer and assessor note 4 Independently obtain and review medical history and history of present illness with patient 4 Other counseling and coordination of care 7 Updating patient chart, documentation of clinical encounter and signing of orders 7 *Portions of this note may have been created with [employer], other software, or a scribe, which leads to grammatical and typographical errors which are not outbound sales representative of the intent with my spoken words. Clinical web assistant/AT/MA was acting as a scribe today for this note. I have performed all essentialcomponents of the history, and physical exam. I have confirmed the diagnosis and developed a plan of care at this visit. I have reviewed the note following the visit and have made edits as appropriate to my evaluation and plan of care. Triny Armenta DO [facility] Nuclear medicine Diagnostic [place] [address] Nuclear Medicine Report Signed Patient: Katt Rahman MR#: [id number] : 1960 Acct:[id number] Age/Sex: 64 / F ADM Date: 5 Loc: NM Room: Type: [facility] Attending Dr: Triny Armenta DO Copies to: Edilberto Gregory DO~ Ordering Provider: Triny Armenta DO Date of Service: 03/20/25 NM/NM bone 3 phase: M25.561,G89.29,Z96.651 Nuclear medicine 3 phase bone scan TECHNIQUE: 24.0mCi of technetium 99m labeled MDP was administered. Planar imaging obtained in multiple planes. COMPARISON: 12/12/2021, 05/18/2024. This demonstrates a right total knee arthroplasty. The left knee arthroplasty present HISTORY: Right knee arthroplasty. Suspicion for loosening. Findings: No significant hyperemia identified with blood flow imaging. Decreased uptake bilateral knee arthroplasties with immediate imaging consistentwith knee replacement. Mild diffuse uptake surrounds the right knee with immediate imaging. Focal regions of uptake adjacent to the tibial plate anddistal femoral components identified. No uptake of the stems. NM/NM bone 3 phase IMPRESSION: Adjacent delayed uptake adjacent to the distal right femoral and tibial plate components. The findings suggest regions of the loosening. Impression dictated by: Edilberto Castillo M.D. 03/20/2025 3:32 PM Dictation Location: [place] [address] Transcribed By: [facility] 03/20/25 1532 Dictated By: Edilberto Castillo DO 03/20/25 1526 Signed By: 03/20/[address] [facility]08-25-2025 History of Present illness Narrative * Freddy De La Vega MA - 02/27/2025 1:30 PM EDT Chief Complaint Patient presents with Right Hip - Pain, Follow-up Right Knee - Pain Pain Radiation To: radiates down to the knee Pain Duration: 3 years Pain Frequency: constant Pain Quality: aching Factors That Aggravate Pain: movement, positioning, exertion, physical, activity, inactivity Factors That Relieve Pain: rest, relaxation, repositioning, medications, corticosteriod Re-evaluation with concerns for hip related symptoms. Last CSI: 01/26/25 USG RT hip. IMPRESSION/PLAN: Pertinent medical office records and imaging studies reviewed. Xrays from 11/17/24 demonstrated moderate right hip degenerative changes. Medical decision making has been discussed with patient including potential further work-up, surgical and non-surgical options. Continue current conservative treatment. Medication management: Continue current treatment. We have discussed additional workup and treatment that could be needed. Follow-up in 3-4 weeks for office visit re-evaluation. Visit Vitals Temp 96.5 F (35.8 C) (Temporal) Ht 1.626 m (5' 4 ) Wt 86.6 kg (191 lb) BMI 32.79 kg/m *Time components listed in minutes below. This data may or may not be needed for insurance reimbursement purposes. Reviewing clinical note(s) from previous visit/ER/urgent care/PCP/other specialists 4 Review of medical history 4 Review of medical insurance biller or workplace trainer and assessor note 4 Independently obtain and review medical history and history of present illness with patient 4 Other counseling and coordination of care 7 Updating patient chart, documentation of clinical encounter and signing of orders 7 Medication ordering and discussion of risks, benefits and alternatives 3 PT ordering and discussion of expectations including proper progression 3 Independent review of previous imaging 4 Review of pertinent labs 3 Communicating and/or referring to other specialist 2 *Portions of this note may have been created with [employer], other software, or a scribe, which leads to grammatical and typographical errors which are not outbound sales representative of the intent with my spoken words. * Triny Armenta, - 02/27/2025 1:30 PM EDT Chief Complaint Patient presents with Right Hip - Pain, Follow-up Right Knee - Pain Pain Radiation To: radiates down to the knee Pain Duration: 3 years Pain Frequency: constant Pain Quality: aching Factors That Aggravate Pain: movement, positioning, exertion, physical, activity, inactivity Factors That Relieve Pain: rest, relaxation, repositioning, medications, corticosteriod Est with Foster. Re-evaluation with concerns for hip related symptoms. Last CSI: 01/26/25 USG RT hip, this provided temporary relief but now worse again. She does not recall the hip injection helping the knee. Knee still bothering her quite a bit and she is concerned about the knee. Did have a bone scan a few years ago. IMPRESSION/PLAN: Pertinent medical office records and imaging studies reviewed. Xrays from 11/17/24 demonstrated moderate right hip degenerative changes. Medical decision making has been discussed with patient including potential further work-up, surgical and non-surgical options. Continue current conservative treatment. Medication management: Continue Voltaren and Tylenol We have discussed additional workup and treatment that could be needed. Recent CBC was done and WBC was WNL. Will order ESR, CRP and new bone scan to look for infection or loosening of TKA Follow-up in 3-4 weeks for office visit re-evaluation. Visit Vitals Temp 96.5 F (35.8 C) (Temporal) Ht 1.626 m (5' 4 ) Wt 86.6 kg (191 lb) BMI 32.79 kg/m *Time components listed in minutes below. This data may or may not be needed for insurance reimbursement purposes. Reviewing clinical note(s) from previous visit/ER/urgent care/PCP/other specialists 4 Review of medical history 4 Review of medical insurance biller or workplace trainer and assessor note 4 Independently obtain and review medical history and history of present illness with patient 4 Other counseling and coordination of care 7 Updating patient chart, documentation of clinical encounter and signing of orders 7 *Portions of this note may have been created with [employer], other software, or a scribe, which leads to grammatical and typographical errors which are not outbound sales representative of the intent with my spoken words. Clinical web assistant/GISELE/INNA was acting as a scribe today for this note. I have performed all essentialcomponents of the history, and physical exam. I have confirmed the diagnosis and developed a plan of care at this visit. I have reviewed the note following the visit and have made edits as appropriate to my evaluation and plan of care. Triny Armenta DO documented in this [facility]08-25-2025 Miscellaneous Notes* Addendum Note - Freddy De La Vega MA - 02/27/2025 1:30 PM EDTAddended by: FREDDY DE LA VEGA on: 02/27/2025 04:44 PM Modules accepted: Orders [facility] Note* Addendum Note - Freddy De La Vega MA - 02/27/2025 1:30 PM EDTAddended by: FREDDY DE LA VEGA on: 02/27/2025 04:44 PM Modules accepted: Orders [facility]08-21-2025 History of Present illness Narrative* Angela Pak LPN - 02/23/2025 11:00 AM EDT Reason for Appointment: Patient ID: Katt Rahman is a 64 y.o. female who presents for Well Women Visit Patient presents today for Annual Exam. MEDICATIONS Current Outpatient Medications Medication Instructions Calcium Carbonate-Vit D-Min (CALCIUM 1200 PO) 1 capsule, Oral, Daily glimepiride (AMARYL) 8 mg, Oral, Daily before breakfast Januvia 100 mg, Oral, Daily losartan (COZAAR) 50 mg, Oral, Daily meloxicam (Mobic) 7.5 MG tablet As needed metFORMIN (GLUCOPHAGE) 1,000 mg, Oral, 2 times daily simvastatin (ZOCOR) 20 mg, Oral, Daily ALLERGIES Allergies Allergen Reactions Pioglitazone Itching, Rash and Unknown Sulfa Antibiotics Hives and Unknown Diclofenac GI intolerance, Nausea Only and Rash Tramadol Itching, Rash and Unknown Lisinopril Cough and Unknown Sulfamethoxazole-Trimethoprim Rash PROBLEMS Active Ambulatory Problems Diagnosis Date Noted Osteopenia 05/23/2024 Resolved Ambulatory Problems Diagnosis Date Noted No Resolved Ambulatory Problems Past Medical History: Diagnosis Date Cervical disc disease Diabetes (HCC) DUB (dysfunctional uterine bleeding) Encounter for gynecological examination (general) (routine) without abnormal findings Fibrocystic breast disease Hammertoe History of kidney stones History of medical problems History of vertebral fracture Menopause Obesity (BMI 30-39.9) Pain in joint involving ankle and foot Pure hypercholesterolemia Recurrent sinusitis Shingles Unequal leg length HISTORY PAST MEDICAL HISTORY SOCIAL HISTORY Past Medical History: Diagnosis Date Cervical disc disease Diabetes (HCC) DUB (dysfunctional uterine bleeding) Encounter for gynecological examination (general) (routine) without abnormal findings Fibrocystic breast disease Hammertoe History of kidney stones History of medical problems NIDDM History of vertebral fracture closed Menopause Obesity (BMI 30-39.9) Pain in joint involving ankle and foot Pure hypercholesterolemia Recurrent sinusitis Shingles Unequal leg length Social History Tobacco Use Smoking status: Never Smokeless tobacco: Not on file Substance Use Topics Alcohol use: Yes Comment: 1-2 drinks less than monthly in the past year, Caffeine intake: 1-2 cups per day Drug use: Never FAMILY HISTORY Family History Problem Relation Name Age of Onset Hypertension Mother Diabetes Mother Heart disease Mother Diabetes Father Hypertension Father Cancer Sibling SURGICAL HISTORY Past Surgical History: Procedure Laterality Date FL GUIDED ASPIRATION OR INJECTION LARGE JOINT BILATERAL Bilateral 10/25/2021 FL GUIDED ASPIRATION OR INJECTION LARGE JOINT BILATERAL FL GUIDED ASPIRATION OR INJECTION LARGE JOINT BILATERAL Bilateral 01/16/2022 FL GUIDED ASPIRATION OR INJECTION LARGE JOINT BILATERAL FL GUIDED ASPIRATION OR INJECTION LARGE JOINT BILATERAL Bilateral 01/26/2025 FL GUIDED ASPIRATION OR INJECTION LARGE JOINT BILATERAL OVARIAN CYST SURGERY 1998 TOTAL KNEE ARTHROPLASTY Bilateral REVIEW OF SYSTEMS Review of Systems: Review of Systems Constitutional: Negative. HENT: Negative. Eyes: Negative. Respiratory: Negative. Cardiovascular: Negative. Gastrointestinal: Negative. Genitourinary: Negative. Musculoskeletal: Negative. Skin: Negative. Neurological: Negative. All other systems reviewed and are negative. Hematological: Negative. Endocrine: Negative. Allergic/Immunologic: Negative. OBJECTIVE Objective: Physical Exam Constitutional: Appearance: Normal appearance. She is well-developed. Genitourinary: Vulva normal. Genitourinary Comments: Split cervix Breasts: Breasts are soft. Right: Normal. Left: Normal. Cardiovascular: Rate and Rhythm: Normal rate and regular rhythm. Pulmonary: Effort: Pulmonary effort is normal. Breath sounds: Normal breath sounds. Abdominal: General: Bowel sounds are normal. There is no distension. Palpations: Abdomen is soft. Tenderness: There is no abdominal tenderness. There is no guarding or rebound. Musculoskeletal: General: No swelling. Normal range of motion. Right lower leg: No edema. Left lower leg: No edema. Neurological: Mental Status: She is alert and oriented to person, place, and time. Skin: General: Skin is warm and dry. Psychiatric: Mood and Affect: Mood normal. Behavior: Behavior normal. Vitals and nursing note reviewed. Exam conducted with a blower operator present. Vitals: Estimated body mass index is 31.75 kg/m as calculated from the following: Height as of 02/15/24: 5' 5 . Weight as of this encounter: 190 lb 12.8 oz. BP: 128/70 No LMP recorded. Patient is postmenopausal. ASSESSMENT & PLAN ICD-10-CM 1. Breast cancer screening by mammogram Z12.31 Bilateral screening mammogram Bilateral screening mammogram 2. Well woman exam with routine gynecological exam Z01.419 Annual: Patient presents today for an Medicare Well Women annual exam. Patient states she is doing well andhas no complaints. Pap was was NOT obtained due to have completed last year and patient given mammogram order to have scheduled/obtained. Orders Placed This Encounter Procedures Bilateral screening mammogram Follow Up: Patient is to return in one year for annual w/ PAP SMEAR unless needed otherwise. Documented by Angela Pak LPN on behalf of: Abiodun Brewer DO documented in this encounterCox [id number] History of Present illness Narrative* Abhijeet Lin, ATC - 01/26/2025 8:00 AM EDTAssociated Order(s): LARGE JOINT/BURSA INJECTION AND/OR ASPIRATION: R hip joint Post-Procedure Diagnose(s): Right hip pain Chief Complaint Patient presents with Right Hip - Pain Pain Radiation To: occasional hip, goes to knee Pain Duration: 3 yrs Pain Frequency: constant Pain Quality: aching, burning, sharp Factors That Aggravate Pain: activity (walking, stairs, outside chores) Factors That Relieve Pain: rest, medications, over the counter (OTC) Referral from Dr. Rivera with concerns for right hip related symptoms. History of Diabetes IMPRESSION/PLAN: Records reviewed including recent imaging: Xrays from 11/17/24 demonstrate Moderate DJD per my review. Ddx discussed. Continue current conservative treatment. Medication management: Continue current medications as prescribed We have discussed additional workup and treatment that could be needed. Injection/(s) performed after discussing risks, benefits and alternatives. See procedure note. The patient understands that this procedure is elective. They presented today for a billable office encounter. The office visit today involved evaluation or re-evaluation of their orthopedic condition(s) and any other medical problem which could influence today's orthopedic medical decision making. The mutual decision to perform injection(s) was made after careful clinical evaluation or re-evaluation of the patient's clinical status, including, but not limited to severity or worsening pattern of pain and/or function, and response to any previous treatment. Other variables can influence medical decision making which may result in a decision to inject or not to inject. These variables may include decision for surgery, improving symptoms, development of other medical problems which make performing an injection an unfavorable choice, patient preference or many other factors. The documentation for procedure billing is listed in the procedure note. The documentation to substantiate the appropriate evaluation and management level of service office code is documented separately. Follow-up: 1 month for office visit and reevaluation Bilateral hips examined today. INSPECTION: No swelling. No ecchymosis. GAIT: Non-antalgic. PALPATION: No tenderness. No tenderness at trochanteric bursa. ROM: Full AROM. STRENGTH: 5/5 RESHMA: Neg. FADIR: Neg. Visit Vitals Temp 96.9 F (36.1 C) (Temporal) Ht 1.626 m (5' 4 ) Wt 88.2 kg (194 lb 6.4 oz) BMI 33.37 kg/m LARGE JOINT/BURSA INJECTION AND/OR ASPIRATION: R hip joint Date/Time: 01/26/2025 8:00 AM Performed by: Triny Armenta DO Authorized by: Triny Armenta DO Supporting Documentation Indications: pain Procedure Details: Location: hip - R hip joint Local Anesthetic: lidocaine 1% Guidance: ultrasound Correct final needle position was confirmed with direct visualization under real-time ultrasound Ultrasound probe size: 4 mHz curvilinear Images were saved electronically. Needle size: 22 G Medication Verification: I have personally verified and performed the final check of the medication(s) used in this procedure prior to administration. The following items were included during the verification process for medication(s) administered: drug name, strength, volume, expiration, physical integrity and appearance of the medication(s). Medications administered: 3 mL Lidocaine 10 mg/mL; 1 mL triamcinolone 40 MG/ML Patient tolerance: patient tolerated the procedure well with no immediate complications Pre-Procedure Details The attending physician was present for the entire procedure. Consent: Consent was obtained prior to the [...] sterile fashion. The patient was prepped with Chloraprep. *Time components listed in minutes below. This data may or may not be needed for insurance reimbursement purposes. Reviewing clinical note(s) from previous visit/ER/urgent care/PCP/other specialists 4 Review of medical history 4 Review of medical insurance biller or workplace trainer and assessor note 4 Independently obtain and review medical history and history of present illness with patient 4 Other counseling and coordination of care 7 Updating patient chart, documentation of clinical encounter and signing of orders 7 Communicating and/or referring to other specialist 2 *Portions of this note may have been created with [employer], other software, or a scribe, which leads to grammatical and typographical errors which are not outbound sales representative of the intent with my spoken words. * Triny Hugh Armenta, - 01/26/2025 8:00 AM EDT Chief Complaint Patient presents with Right Hip - Pain Pain Radiation To: occasional hip, goes to knee Pain Duration: 3 yrs Pain Frequency: constant Pain Quality: aching, burning, sharp Factors That Aggravate Pain: activity (walking, stairs, outside chores) Factors That Relieve Pain: rest, medications, over the counter (OTC) Referral from Dr. Rivera with concerns for right hip related symptoms. History of Diabetes. Glucosecontrolled. Last seen by me just over 3 years ago. Of note, has h/o b/l TKA. Does have pain that seems to radiate to knee and low back. Very occasional paresthesias. IMPRESSION/PLAN: Records reviewed including recent imaging: Xrays from 11/17/24 demonstrate Moderate DJD per my review. Ddx discussed. Continue current conservative treatment. Medication management: Continue current medications as prescribed We have discussed additional workup and treatment that could be needed. Injection/(s) performed after discussing risks, benefits and alternatives. See procedure note. The patient understands that this procedure is elective. They presented today for a billable office encounter. The office visit today involved evaluation or re-evaluation of their orthopedic condition(s) and any other medical problem which could influence today's orthopedic medical decision making. The mutual decision to perform injection(s) was made after careful clinical evaluation or re-evaluation of the patient's clinical status, including, but not limited to severity or worsening pattern of pain and/or function, and response to any previous treatment. Other variables can influence medical decision making which may result in a decision to inject or not to inject. These variables may include decision for surgery, improving symptoms, development of other medical problems which make performing an injection an unfavorable choice, patient preference or many other factors. The documentation for procedure billing is listed in the procedure note. The documentation to substantiate the appropriate evaluation and management level of service office code is documented separately. Follow-up: 1 month for office visit and reevaluation Bilateral hips examined today. INSPECTION: No swelling. No ecchymosis. GAIT: Non-antalgic. PALPATION: No tenderness. No tenderness at trochanteric bursa. ROM: Full AROM. STRENGTH: 5/5 RESHMA: Neg. FADIR: Neg. Visit Vitals Temp 96.9 F (36.1 C) (Temporal) Ht 1.626 m (5' 4 ) Wt 88.2 kg (194 lb 6.4 oz) BMI 33.37 kg/m LARGE JOINT/BURSA INJECTION AND/OR ASPIRATION: R hip joint Date/Time: 01/26/2025 8:00 AM Performed by: Triny Armenta DO Authorized by: Triny Armenta DO Supporting Documentation Indications: pain Procedure Details: Location: hip - R hip joint Local Anesthetic: lidocaine 1% Guidance: ultrasound Correct final needle position was confirmed with direct visualization under real-time ultrasound Ultrasound probe size: 4 mHz curvilinear Images were saved electronically. Needle size: 22 G Medication Verification: I have personally verified and performed the final check of the medication(s) used in this procedure prior to administration. The following items were included during the verification process for medication(s) administered: drug name, strength, volume, expiration, physical integrity and appearance of the medication(s). Medications administered: 3 mL Lidocaine 10 mg/mL; 1 mL triamcinolone 40 MG/ML Patient tolerance: patient tolerated the procedure well with no immediate complications Pre-Procedure Details The attending physician was present for the entire procedure. Consent: Consent was obtained prior to the [...] sterile fashion. The patient was prepped with Chloraprep. *Time components listed in minutes below. This data may or may not be needed for insurance reimbursement purposes. Reviewing clinical note(s) from previous visit/ER/urgent care/PCP/other specialists 4 Review of medical history 4 Review of medical insurance biller or workplace trainer and assessor note 4 Independently obtain and review medical history and history of present illness with patient 4 Other counseling and coordination of care 7 Updating patient chart, documentation of clinical encounter and signing of orders 7 Communicating and/or referring to other specialist 2 *Portions of this note may have been created with [employer], other software, or a scribe, which leads to grammatical and typographical errors which are not outbound sales representative of the intent with my spoken words. Clinical web assistant/AT/MA was acting as a scribe today for this note. I have performed all essentialcomponents of the history, and physical exam. I have confirmed the diagnosis and developed a plan of care at this visit. I have reviewed the note following the visit and have made edits as appropriate to my evaluation and plan of care. Triny Armenta DO documented in this encounterGe[facility]05-15-[facility] History of Present illness Narrative* Kasey Monreal - 11/17/2024 1:20 PM EDT Ortho Nurse - Established Patient Intake Room#: room 3---- pt is here today for hip and right knee pain. She had a R TKA revision 03/04/2022.She was last seen in office on 09/16/24 and was taking Meloxicam and using Voltaren Gel. She is no longer taken Meloxicam due to upsetting her stomach. She was also sent to PT for Pes tendonitis. She does not feel it helped and the knee feels the same. She states therapy mentioned it possibly being her hip and not the knee. She rates her pain on a scale of 5/10. Denies nicotine. Date: 11/17/2024 1:22 PM Patient: Katt Rahman MR#: [id number] : 1960 Age: 63 y.o. Referring Physician: Self, Self Insurance: Payor: MEDICARE / Plan: MEDICARE A AND B / Product Type: *No Product type* / Chief Complaint Patient presents with Right Knee - Pain Right Hip - Pain There were no vitals taken for this [...] KNEE Right 03/04/2022 Laterality: Right; Surgeon: Kee Rivera MD; Location: [facility] OR KNEE REPLACEMENT Right 05/02/2019 Dr. Laly [...] clot prevention. (Patient not taking: Reported on 09/16/2024) 60 tablet 0 docusate 100 MG capsule Take 1 capsule by mouth 2 times daily. (Patient not taking: Reported on 09/16/2024) 60 capsule 0 gliMEPIride 4 MG tablet Take by mouth daily every morning. Takes 2 tablets every morning Januvia 100 MG tablet Take 1 tablet by mouth daily. losartan 100 MG tablet Take 1 tablet by mouth daily. meloxicam 7.5 MG tablet Take 1 tablet by mouth daily. Take with food. (Patient not taking: Reportedon 09/16/2024) 30 tablet 0 meloxicam 7.5 MG tablet Take 1 tablet by mouth daily. 30 tablet 1 metFORMIN 1000 MG tablet Take 1 tablet by mouth 2 times daily. methylPREDNIsolone 4 MG Tab Therapy Pack tablet Take 1 tablet by mouth As directed. follow package directions (Patient not taking: Reported on 09/16/2024) 21 tablet 0 naloxone 4 MG/0.1ML 1 spray by Nasal route once for 1 dose. Sparks into the nose as directed. Call 911. If no response in 2 minutes use a new nasal spray in other nostril. Repeat until help arrives. 1Each 0 omeprazole [address] capsule Take 1 capsule by mouth daily. (Patient not taking: Reported on 09/16/2024) 30 capsule 0 oxyCODONE 5 MG tablet Take one to two tabs every 4-6 hours as needed for severe pain. Wean as tolerated 20 tablet 0 Pantoprazole [address] tablet DR Take 1 tablet by mouth daily. SIMVASTATIN PO Take 20 mg by mouth every evening at 6 PM. sucralfate 1 g tablet Take 1 tablet by mouth every 6 hours. (Patient not taking: Reported on 09/16/2024) 120 tablet 0 therapeutic multivitamin-minerals tablet Take 1 tablet by mouth at bedtime. (Patient not taking: Reported on 09/16/2024) 30 tablet 0 No facility-administered medications prior to visit. Allergies: She is allergic to actos [pioglitazone], sulfa antibiotics, diclofenac, tramadol, and lisinopril. * Kee Rivera MD - 11/17/2024 1:20 PM EDT HPI: Patient is here, with a family member, as she has failed the conservative measures we planned from last visit (09/16/24) for her right knee. She had a revision total right knee in February of 2022.Her physical therapist reports that he/she feels the pain radiating to her knee is originating fromher right hip dysfunction. She was unable to use the Meloxicam due to stomach upset. She would liketo discuss next options of treatment for pain. PHYSICAL EXAM: This is an alert, oriented, and age-appropriate female. She is in no distress. Pleasant and cooperative. EXTREMITIES: The upper extremities have no gross deformity. Normal stability. 5/5 motor. Intact sensation. Normal coordination. Skin intact. Lower extremities have no gross deformity. Normal stability. 5/5 motor. Intact sensation. Normal coordination. Skin intact. right hip demonstrates WNL flexion, limited internal rotation, limited external rotation with reproduction of symptoms. Painful range of motion. Contralateral hip has full and supple motion. No pain. No impingement. No instability. Normal neurovascular status in lower extremities bilaterally. IMAGING: Plain film radiographs were reviewed. AP hip and pelvis series demonstrate moderate arthritis to right hip, loss of joint space, subchondral sclerosis, osteophyte formation, and [id number]. Plain film radiographs were reviewed. She has a total knee arthroplasty in good position and alignment. No evidence of prosthetic implant loosening or migration. IMPRESSION: 1.) Symptomatic right hip arthritis PLAN: I have reviewed my findings with the patient. We have gone over the diagnosis, radiographs, physical exam findings and treatment options together. We then discussed the nature of arthritis and its associated symptoms. We are going to start conservatively treating her. I will make a referral to Dr. Armenta for an intraarticular right hip injection. If this conservative treatment fails and is not helpful in the future, we will consider the next steps of treatment. She has no further questions. Next appointment will be left open to her. I have reviewed the findings of my clinical staff below and agree with their assessment. Vitals: 11/17/24 1322 Temp: 98 degrees F (36.7 degrees C) TempSrc: Temporal Weight: 89.1 kg (196 lb 6.4 oz) Height: 1.626 m (5' 4 ) Pain Recent Labs Lab Results Component Value Date CRP 14.7 (H) 12/06/2021 Lab Results Component Value Date SEDRATE 12 12/06/2021 Lab Results Component Value Date WBC 10.2 03/05/2022 HGB 10.2 (L) 03/05/2022 HCT 30.0 (L) 03/05/2022 PLATELET 213 03/05/2022 MCV 91.2 03/05/2022 Past Medical History: Diagnosis Date Arthritis Diabetes mellitus Essential hypertension, benign GERD (gastroesophageal reflux disease) Past Surgical History: Procedure Laterality Date REVISION ARTHROPLASTY KNEE Right 03/04/2022 Laterality: Right; Surgeon: Kee Rivera MD; Location: [facility] OR KNEE REPLACEMENT Right 05/02/2019 Dr. Laly Camara KNEE REPLACEMENT Left 09/27/2018 Dr. Camara History reviewed. No pertinent family history. Social History Socioeconomic History Marital status: Tobacco Use Smoking status: Never Smokeless tobacco: Never Vaping Use Vaping status: Never Used Substance and Sexual Activity Alcohol use: Not Currently Drug use: Never Current Outpatient Medications: amoxicillin 500 MG capsule, Prior to dental work., Disp: , Rfl: gliMEPIride 4 MG tablet, Take by mouth daily every morning. Takes 2 tablets every morning, Disp: , Rfl: Januvia 100 MG tablet, Take 1 tablet by mouth daily., Disp: , Rfl: losartan 100 MG tablet, Take 1 tablet by mouth daily., Disp: , Rfl: metFORMIN 1000 MG tablet, Take 1 tablet by mouth 2 times daily., Disp: , Rfl: Oyster Shell Calcium w/D 500-5 MG-MCG tablet, Take by mouth daily., Disp: , Rfl: SIMVASTATIN PO, Take 20 mg by mouth every evening at 6 PM., Disp: , Rfl: acetaminophen 325 MG tablet, Take 2 tablets by mouth every 4 hours as needed for Mild Pain., Disp: 50 tablet, Rfl: 1 aspirin EC [address], Take 1 table twice a day for 30days. This medication is for blood clot prevention. (Patient not taking: Reported on 06/25/2022), Disp: 60 tablet, Rfl: 0 docusate 100 MG capsule, Take 1 capsule by mouth 2 times daily. (Patient not taking: Reported on 06/25/2022), Disp: 60 capsule, Rfl: 0 meloxicam 7.5 MG tablet, Take 1 tablet by mouth daily. Take with food. (Patient not taking: Reported on 06/25/2022), Disp: 30 tablet, Rfl: 0 meloxicam 7.5 MG tablet, Take 1 tablet by mouth daily. (Patient not taking: Reported on 11/17/2024),Disp: 30 tablet, Rfl: 1 methylPREDNIsolone 4 MG Tab Therapy Pack tablet, Take 1 tablet by mouth As directed. follow packagedirections (Patient not taking: Reported on 06/25/2022), Disp: 21 tablet, Rfl: 0 naloxone 4 MG/0.1ML, 1 spray by Nasal route once for 1 dose. Sparks into the nose as directed. Call 911. [...] as tolerated, Disp: 20 tablet, Rfl: 0 Pantoprazole [address] tablet DR, Take 1 tablet by mouth daily. (Patient not taking: Reported on11/17/2024), Disp: , Rfl: sucralfate 1 g tablet, Take 1 tablet by mouth every 6 hours. (Patient not taking: Reported on 06/25/2022), Disp: 120 tablet, Rfl: 0 therapeutic multivitamin-minerals tablet, Take 1 tablet by mouth at bedtime. (Patient not taking: Reported on 06/25/2022), Disp: 30 tablet, Rfl: 0 Allergies Allergen Reactions Actos [Pioglitazone] Itching Sulfa Antibiotics Hives Diclofenac Nausea Only Tramadol Itching Lisinopril Cough documented in this encounterGe[facility]03-14-2025 History of Present illness Narrative* Kasey Stewardclair - 09/16/2024 11:00 AM EDT Ortho Nurse - Established Patient Intake Room#: room 2---- pt is here today for right knee pain. She is S/P R knee revision 2021 by [facility]. Still hurts all the time; can't do steps very well, when sits for awhile and goes to get up it hurts. Walking loosens it up a bit but goes back to hurting. She does use Voltaren gel 3 Xs a day which relieves the pain a little. She has been taking Meloxicam for a few months and is unsure if it is helping. NKI or Fall. She rates her pain on a scale of 5/10. Denies nicotine Date: 09/16/2024 10:49 AM Patient: Katt Rahman MR#: [id number] : 1960 Age: 63 y.o. Referring Physician: Self, Self Insurance: Payor: MEDICARE / Plan: MEDICARE A AND B / Product Type: *No Product type* / Chief Complaint Patient presents with Right Knee - Pain There were no vitals taken for this [...] KNEE Right 03/04/2022 Laterality: Right; Surgeon: Kee Rivera MD; Location: [facility] OR KNEE REPLACEMENT [...] by Nasal route once for 1 dose. Sparks into the nose as directed. Call 911. [...] antibiotics, diclofenac, tramadol, and lisinopril. * Kee Rivera MD - 09/16/2024 11:00 AM EDT HPI: Patient is here today for evaluation of her revised right knee due to pain. She notices increased pain when she is getting up from a seated position or climbing stairs. Primary complaint is pain, impairment in the knee and a decreased quality of life secondary to her right knee pain. Patient'srevision was on 03/04/22 due to flexion instability. Uses Meloxicam and Voltaren gel for pain reliefwhich does help some. PHYSICAL EXAM: This is an alert, oriented, and age-appropriate female. She is in no distress. Pleasant and cooperative. EXTREMITIES: The upper extremities have no gross deformities. Normal stability.Skin Intact. 5/5 motor. Intact sensation. Normal neurovascular status. Normal coordination. The lower extremities have no gross deformities. Normal stability. Skin Intact. 5/5 motor. Intact sensation. Tender to the pes anserine. Normal neurovascular status. Normal coordination. Range of motion uponexam today is 0-100 to 105. Stable examination to varus and valgus stress. Full motion of hip. No pain. No impingement. No instability. Contralateral leg has normal alignment. Full motion. No pain. No impingement. No instability. IMAGING: Plain film radiographs were reviewed. She has a total knee arthroplasty in good position and alignment. No evidence of prosthetic implant loosening or migration. IMPRESSION:1). Stable status post total knee arthroplasty, doing well. Mild pes tendonitis. PLAN: I have reviewed my findings with patient. We have gone over the diagnosis, the radiographs, physical exam findings and treatment options. We discussed the nature of tendonitis and its associated symptoms. We then discussed conservative vrs surgical interventions along with the pros and cons of each method. For today, she desires to proceed with treatment in the form of physical therapy and anti-inflammatory medications. Patient wants to continue with her Meloxicam she has as she knows it will not disrupt her stomach. In 2-3 months, if these conservative measures fail, before returning for a follow up she will need to receive ESR and CRP. All questions were answered today. Next appointment will be left open to her. I have reviewed the findings of my clinical staff below and agree with their assessment. Vitals: 09/16/24 1049 Weight: 90.2 kg (198 lb 12.8 oz) Height: 1.626 m (5' 4 ) Pain Recent Labs Lab Results Component Value Date CRP 14.7 (H) 12/06/2021 Lab Results Component Value Date SEDRATE 12 12/06/2021 Lab Results Component Value Date WBC 10.2 03/05/2022 HGB 10.2 (L) 03/05/2022 HCT 30.0 (L) 03/05/2022 PLATELET 213 03/05/2022 MCV 91.2 03/05/2022 Past Medical History: Diagnosis Date Arthritis Diabetes mellitus Essential hypertension, benign GERD (gastroesophageal reflux disease) Past Surgical History: Procedure Laterality Date REVISION ARTHROPLASTY KNEE Right 03/04/2022 Laterality: Right; Surgeon: Kee Rivera MD; Location: [facility] OR KNEE REPLACEMENT Right 05/02/2019 Dr. Laly Camara KNEE REPLACEMENT Left 09/27/2018 Dr. Camara History reviewed. No pertinent family history. Social History Socioeconomic History Marital status: Tobacco Use Smoking status: Never Smokeless tobacco: Never Vaping Use Vaping status: Never Used Substance and Sexual Activity Alcohol use: Not Currently Drug use: Never Current Outpatient Medications: acetaminophen 325 MG tablet, Take 2 tablets by mouth every 4 hours as needed for Mild Pain., Disp: 50 tablet, Rfl: 1 amoxicillin 500 MG capsule, Prior to dental work., Disp: , Rfl: gliMEPIride 4 MG tablet, Take by mouth daily every morning. Takes 2 tablets every morning, Disp: , Rfl: Januvia 100 MG tablet, Take 1 tablet by mouth daily., Disp: , Rfl: losartan 100 MG tablet, Take 1 tablet by mouth daily., Disp: , Rfl: meloxicam 7.5 MG tablet, Take 1 tablet by mouth daily., Disp: 30 tablet, Rfl: 1 metFORMIN 1000 MG tablet, Take 1 tablet by mouth 2 times daily., Disp: , Rfl: Pantoprazole [address] tablet DR, Take 1 tablet by mouth daily., Disp: , Rfl: SIMVASTATIN PO, Take 20 mg by mouth every evening at 6 PM., Disp: , Rfl: aspirin EC [address], Take 1 table twice a day for 30days. This medication is for blood clot prevention. (Patient not taking: Reported on 09/16/2024), Disp: 60 tablet, Rfl: 0 docusate 100 MG capsule, Take 1 capsule by mouth 2 times daily. (Patient not taking: Reported on 09/16/2024), Disp: 60 capsule, Rfl: 0 meloxicam 7.5 MG tablet, Take 1 tablet by mouth daily. Take with food. (Patient not taking: Reported on 09/16/2024), Disp: 30 tablet, Rfl: 0 methylPREDNIsolone 4 MG Tab Therapy Pack tablet, Take 1 tablet by mouth As directed. follow packagedirections (Patient not taking: Reported on 09/16/2024), Disp: 21 tablet, Rfl: 0 naloxone 4 MG/0.1ML, 1 spray by Nasal route once for 1 dose. Sparks into the nose as directed. Call 911. If no response in 2 minutes use a new nasal spray in other nostril. Repeat until help arrives.,Disp: 1 Each, Rfl: 0 omeprazole [address] capsule, Take 1 capsule by mouth daily. (Patient not taking: Reported on 09/16/2024), Disp: 30 capsule, Rfl: 0 oxyCODONE 5 MG tablet, Take one to two tabs every 4-6 hours as needed for severe pain. Wean as tolerated, Disp: 20 tablet, Rfl: 0 sucralfate 1 g tablet, Take 1 tablet by mouth every 6 hours. (Patient not taking: Reported on 09/16/2024), Disp: 120 tablet, Rfl: 0 therapeutic multivitamin-minerals tablet, Take 1 tablet by mouth at bedtime. (Patient not taking: Reported on 09/16/2024), Disp: 30 tablet, Rfl: 0 Allergies Allergen Reactions Actos [Pioglitazone] Itching Sulfa Antibiotics Hives Diclofenac Nausea Only Tramadol Itching Lisinopril Cough documented in this encounterGeorgetown [facility]11-18-2024 History of Present illness Narrative* Angela Pak, STREET ENGINEER - 05/23/2024 8:00 AM EST Reason for Appointment: Patient ID: Katt Rahman is a 63 y.o. female who presents for follow up DEXA SCAN Patient presents today via telephone call for a telehealth appointment. Patients Phone #: [phone] (mobile) Current Medications: has a current medication [...] oral Calcium and Vitamin D supplements. Discussed weight- bearing activity/exercises with patient if she does not desire to take any other oral medications (Fosamax) Nursing will obtain previous scan andprovider will compare results. If stable then patient will continue current regimen and add weight-bearing activity. If scan has worsened then provider will discuss Fosamax with patient. Patient aware no news is good news. Today's telehealth visit consisted of spending 5 minutes talking to patient on the phone. Documented by Angela Pak LPN on behalf of: Abiodun Brewer DO documented in this encounterCox [id number] Evaluation note* Diagnosis Onset Date Resolution Status Admit Date Primary osteoarthritis of right hip acuteNovember 2023 10:25amRight hip painacuteNovember 2023 10:25am [facility] Work Phone: 1(843) 316-135011-13-2024 Evaluation note* Diagnosis Onset Date Resolution Status Admit Date Primary osteoarthritis of right hip acuteNovember 2023 10:25amRight hip painacuteNovember 2023 10:25am Greater trochanteric bursitis of right hipacuteJanuary 2024 8:55amHistory of revision of total replacement of right knee jointacuteJanuary 2024 8:55amPrimary osteoarthritis of right hipacuteJanuary 2024 8:55am [facility] Work Phone: 1(552) 867-746911-13-2024 Evaluation note* Diagnosis Onset Date Resolution Status Admit Date Primary osteoarthritis of right hip acuteNovember 2023 10:25amRight hip painacuteNovember 2023 10:25am Greater trochanteric bursitis of right hipacuteJanuary 2024 8:55amHistory of revision of total replacement of right knee jointacuteJanuary 2024 8:55amPrimary osteoarthritis of right hipacuteJanuary 2024 8:55amPainful total knee replacement, rightacuteJanuary 2024 9:37amChronic painacute Mary 2024 10:47amPainful total knee replacement, rightacuteJanuary 2024 10:47amRight knee painacuteJanuary 2024 10:47am [facility] Work Phone: 1(115) 315-994008-30-2023 History of Present illness Narrative* Bel Rothman - 03/04/2023 11:00 AM EDT Ortho Nurse - Established Patient Intake Room#: 4 Date: 03/04/2023 11:27 AM Patient: Katt Rahman MR#: [id number] : 1960 Age: 62 y.o. 1yr R TKA Pt stated she is doing better than what is was, but is having back issues and her hip is bothering her. Pt has pain and stiffness at times if sitting to long 4/10 on the pain scale. Referring Physician: Self, Self Insurance: Payor: [employer]ESS[employer] EXCHANGE / Plan: [employer] / Product Type: *No Product type* / [...] KNEE Right 03/04/2022 Laterality: Right; Surgeon: Kee Rivera MD; Location: [facility] OR KNEE REPLACEMENT [...] by Nasal route once for 1 dose. Sparks into the nose as directed. Call 911. [...] by Nasal route once for 1 dose. Sparks into the nose as directed. Call 911. [...] sulfa antibiotics, diclofenac, tramadol, and lisinopril. * Jordon Durant APRN-GRAVITY PROSPECTING SUPERVISOR - 03/04/2023 11:00 AM EDT HPI: Patient [...] on face to face time with patient. Jordon Durant APRN-BLAYNE I have reviewed the findings of the clinical product support sales representative and agree with their assessment. Ortho Nurse - Established Patient Intake Room#: 4 Date: 03/04/2023 11:27 AM Patient: Katt Rahman MR#: [id number] : 1960 Age: 62 y.o. 1yr R TKA Pt stated she is doing better than what is was, but is having back issues and her hip is bothering her. Pt has pain and stiffness at times if sitting to long 4/10 on the pain scale. Referring Physician: Self, Self Insurance: Payor: [employer] EXCHANGE / Plan: [employer] / Product Type: *No Product type* / [...] KNEE Right 03/04/2022 Laterality: Right; Surgeon: Kee Rivera MD; Location: [facility] OR KNEE REPLACEMENT Right 05/02/2019 Dr. Laly [...] by Nasal route once for 1 dose. Sparks into the nose as directed. Call 911. [...] by Nasal route once for 1 dose. Sparks into the nose as directed. Call 911. [...] diclofenac, tramadol, and lisinopril. documented in this encounterGeorgetown [facility]12-21-2022 History of Present illness Narrative* Sandra Rosario LPN - 06/25/2022 11:10 AM EST Ortho Nurse - Established Patient Intake Room#: 3--4 month post-op visit of Right Knee revision (03-05-22). Her pain is a 3 today. She has continued to do home exercise. She still has pain when going up and down stairs. Date: 06/25/2022 11:38 AM Patient: Katt Rahman MR#: [id number] : 1960 Age: 61 y.o. Referring Physician: [...] KNEE Right 03/04/2022 Laterality: Right; Surgeon: Kee Rivera MD; Location: [facility] OR KNEE REPLACEMENT [...] by Nasal route once for 1 dose. Sparks into the nose as directed. Call 911. [...] antibiotics, diclofenac, tramadol, and lisinopril. * Kee Rivera MD - 06/25/2022 11:10 AM EST HPI: [...] have reviewed the findings of the clinical product support sales representative and agree with their assessment. Ortho Nurse - Established Patient Intake Room#: 3--4 month post-op visit of Right Knee revision (03-05-22). Her pain is a 3 today. She has continued to do home exercise. She still has pain when going up and down stairs. Date: 06/25/2022 11:38 AM Patient: Katt Rahman MR#: [id number] : 1960 Age: 61 y.o. Referring Physician: [...] KNEE Right 03/04/2022 Laterality: Right; Surgeon: Kee Rivera MD; Location: [facility] OR KNEE REPLACEMENT [...] by Nasal route once for 1 dose. Sparks into the nose as directed. Call 911. [...] diclofenac, tramadol, and lisinopril. documented in this encounterGeorgetown [facility] Hospital10-12-2022 History of Present illness Narrative* Bel Stephan - 04/16/2022 1:40 PM EDT Ortho Nurse - Established Patient Intake Room#: 4 Date: 04/16/2022 1:39 PM Patient: Katt Rahman MR#: [id number] : 1960 Age: 61 y.o. R TKA [...] KNEE Right 03/04/2022 Laterality: Right; Surgeon: Kee Rivera MD; Location: [facility] OR KNEE REPLACEMENT [...] by Nasal route once for 1 dose. Sparks into the nose as directed. Call 911. [...] by Nasal route once for 1 dose. Sparks into the nose as directed. Call 911. [...] sulfa antibiotics, diclofenac, tramadol, and lisinopril. * Jordon Durant APRN-GRAVITY PROSPECTING SUPERVISOR - 04/16/2022 1:40 PM EDT SUBJECTIVE: [facility]att [facility] Here today for followup. She is now [...] moving forward. She is to see Dr. Rivera at her routinely scheduled 4- month appointment. I have encouraged her to complete physical therapy at the direction of her physical therapist. Call with any questions or concerns in the meantime. (DOC:[id number]) I have reviewed the findings of the clinical product support sales representative and agree with their assessment. Jordon Durant APRN-BLAYNE Ortho Nurse - Established Patient Intake Room#: 4 Date: 04/16/2022 1:39 PM Patient: Katt Rahman MR#: [id number] : 1960 Age: 61 y.o. R TKA [...] KNEE Right 03/04/2022 Laterality: Right; Surgeon: Kee Rivera MD; Location: [facility] OR KNEE REPLACEMENT [...] by Nasal route once for 1 dose. Sparks into the nose as directed. Call 911. [...] by Nasal route once for 1 dose. Sparks into the nose as directed. Call 911. [...] diclofenac, tramadol, and lisinopril. documented in this encounterGeorgetown Behavioral Hospital09-21-2022 History of Present illness Narrative* Saba Garcia LPN - 03/26/2022 1:00 PM EDT Ortho Nurse - Established Patient Intake Room#: 5 Date: 03/26/2022 1:26 PM Patient: Katt Rahman MR#: [id number] : 1960 Age: 61 y.o. 3 wks [...] KNEE Right 03/04/2022 Laterality: Right; Surgeon: Kee Rivera MD; Location: [facility] KNEE REPLACEMENT [...] by Nasal route once for 1 dose. Sparks into the nose as directed. Call 911. [...] by Nasal route once for 1 dose. Sparks into the nose as directed. Call 911. [...] sulfa antibiotics, diclofenac, tramadol, and lisinopril. * Jordon Durant APRN-GRAVITY PROSPECTING SUPERVISOR - 03/26/2022 1:00 PM EDT HPI: Katt [...] Follow up [address] Rivera for clinical and radiological evaluation unless an earlier need should arise. Dental prophylaxis was prescribed and instructions given. All questions and concerns were addressed at this appointment and the patient expressed understanding. All pertinent portions of the clinical product support sales representative documentation was reviewed and agree. MATT Matos I have reviewed the findings of the clinical product support sales representative and agree with their assessment. MATT Matos Ortho Nurse - Established Patient Intake Room#: 5 Date: 03/26/2022 1:26 PM Patient: Katt Rahman MR#: [id number] : 1960 Age: 61 y.o. 3 wks [...] KNEE Right 03/04/2022 Laterality: Right; Surgeon: Kee Rivera MD; Location: [facility] K[facility]EE REPLACEMENT [...] by Nasal route once for 1 dose. Sparks into the nose as directed. Call 911. [...] by Nasal route once for 1 dose. Sparks into the nose as directed. Call 911. [...] diclofenac, tramadol, and lisinopril. documented in this [facility]07[facility] History of Present illness Narrative* Saba Garcia, STREET ENGINEER - 01/16/2022 1:00 PM EDT Ortho Nurse - Established Patient Intake Room#: 1 Date: 01/16/2022 1:15 PM Patient: Katt Rahman MR#: [id number] : 1960 Age: 61 y.o. Hx of Bilat tka by Dr Camara in 2019. Bilat knee pain R>L R knee pain and had a bone scan by tom at [facility] in [place] showing possible loosening. She states it's a 4/10 with activity. Referring Physician: Kee Rivera MD Insurance: Payor: [employer] / Plan: [...] antibiotics, diclofenac, tramadol, and lisinopril. * Kee Rivera MD - 01/16/2022 1:00 PM EDT HPI: [...] on 10/10/21, she was referral to Dr. Armenta for a IA hip joint injection to rule out the hip as a contributory source. She has completed two of the hip injections since then and has had relief of symptoms in the groin but the knee pain persists. Dr. Armenta ordered a bone scan which was done at [facility] in [place] which showed possible loosening of the left [...] hip arthritis, under the care of Dr. Armenta. PLAN: I have reviewed my findings with [...] a right knee revision arthroplasty for optimal fpc management. We have discussed in great detail [...] MRSAscreening, scheduling an appointment for [facility] [place] and the potential surgical date, and reviewing [...] Tramadol Itching Lisinopril Cough [facility] History of Present illness Narrative* Dejuan Willard [...] this note may have been created with [employer] or other software which leads to grammatical and typographical errors which are not outbound sales representative of the intent with my spoken words. * Triny Armenta, - 01/16/2022 11:00 AM EDT Chief Complaint [...] has a h/o b/l TKA in 2019 ([place]). She did see Dr. Rivera at my recommendation. I reviewed his office [...] this note may have been created with [employer] or other software which leads to grammatical and typographical errors which are not outbound sales representative of the intent with my spoken words. Clinical web assistant/AT/MA was acting as a scribe today for this note. I have performed all essentialcomponents of the history, and physical exam. I have confirmed the diagnosis and developed a plan of care at this visit. I have reviewed the note following the visit and have made edits as appropriate to my evaluation and plan of care. Triny Armenta DO documented in this [facility]06[facility] History of Present illness Narrative* Michelle Funes [...] TKA in [address] Camara at [facility]. IMPRESSION/PLAN: Pertinent medical office records and imaging [...] this note may have been created with [employer] or other software which leads to grammatical and typographical errors which are not outbound sales representative of the intent with my spoken words. * Trniy Armenta, - 12/06/2021 1:00 PM EDT Chief Complaint Patient presents with Right Hip - Pain Pain Radiation To: occ. groin Pain Duration: 5-6 mo. Pain Frequency: intermittent Pain Quality: aching, sharp Factors That Aggravate Pain: activity Factors That Relieve Pain: rest Originally referred here by Dr. Rivera. Patient presents in follow-up with concerns for right hip related symptoms. Right hip corticosteroid injection on 10/25/2021 had helped some with her hip pain. Worsening of symptoms lately towards theright knee as well as the low back. History of bilateral TKA in [address] Camara at [facility]. IMPRESSION/PLAN: Pertinent medical office records and imaging [...] this note may have been created with [employer] or other software which leads to grammatical and typographical errors which are not outbound sales representative of the intent with my spoken words. Clinical web assistant/AT/MA was acting as a scribe today for this note. I have performed all essentialcomponents of the history, and physical exam. I have confirmed the diagnosis and developed a plan of care at this visit. I have reviewed the note following the visit and have made edits as appropriate to my evaluation and plan of care. Triny Armenta DO [facility] History of Present illness Narrative* Chanad Liang - 10/25/2021 11:30 AM EDTAssociated Order(s): LARGE [...] Patient presents as a referral from Dr Rivera with concerns for hip related symptoms. She [...] this note may have been created with [employer] or other software which leads to grammatical and typographical errors which are not outbound sales representative of the intent with my spoken words. * Triny Armenta, DO - 10/25/2021 11:30 AM EDT Chief Complaint Patient presents with Right Hip - Pain Pain Radiation To: low back, groin Pain Duration: 4 mo. off and on Pain Frequency: intermittent Pain Quality: sharp Factors That Aggravate Pain: activity Factors That Relieve Pain: heat, medications, over the counter (OTC), rest Patient presents as a referral from Dr Rivera with concerns for hip related symptoms. She has had B/L TKA in [address] Camara at [facility]. Pt describes that she got B/L hip [...] this note may have been created with [employer] or other software which leads to grammatical and typographical errors which are not outbound sales representative of the intent with my spoken words. Clinical web assistant/AT/MA was acting as a scribe today for this note. I have performed all essentialcomponents of the history, and physical exam. I have confirmed the diagnosis and developed a plan of care at this visit. I have reviewed the note following the visit and have made edits as appropriate to my evaluation and plan of care. Triny Armenta DO documented in [facility]07[facility] History of Present illness Narrative* Sandra Rosario LPN - 10/10/2021 1:00 PM EDT Ortho Nurse - Patient Intake Room#: 2---Visit today for bilateral knee pain. She had bilateral TKA. Her right was done 05-02-2019 and left 09-27-2018. Dr. Camara from [place]. She has had pain in her knees [...] 10/10/2021 1:17 PM Patient: Katt Rahman MR#: [id number] : 1960 Age: 60 y.o. Referring Physician: [...] [x]cane, []bracing Are you followed by a engineer design and construction? [] [x] Name: Are you followed by [...] Does pt have dentures? no * Kee Rivera MD - 10/10/2021 1:00 PM EDT HPI: [...] a intraarticular right hip injection with Dr. Armenta. She is in agreement. I will make [...] Tramadol Itching Lisinopril Cough [facility] Evaluation note* Encounter Date Diagnosis Assessment Notes Treatment Notes Treatment Clinical Notes Jun, History of total right knee repl acement (ICD-10 - Z96.651) Jun,History of left knee replacement (ICD-10 - Z96.652) Jun,rimary osteoarthritis of both hips (ICD-10 - M16.0) Based on location of pain and exam findings we will proceed with a intra articular bilateral hip injection. Risks and benefits of procedure explained to patient; patient verbalizes understanding. Jun,Other 1. I had a long discussion with the patient regarding the etiology of her right knee pain. I have no suspicion for any sort of infection. There is nothing on the x-ray to suggest aseptic loosening ofany of the components. There could be some [...] corticosteroid injection. Unable to recommend any oral anti- inflammatories secondary to her ulcer history. I did [...] diagnostic purposes, possibly just a lidocaine injection. [employer] Other 11-02-2021 Evaluation note* Encounter Date Diagnosis Assessment Notes Treatment Notes Treatment Clinical Notes May, Primary osteoarthritis of right knee (ICD-10 - M17.11) May,History of total right knee replacement (ICD-10 - Z96.651) Extensive discussion about current condition and treatment options available. Due to patients diabetes we will not prescribe an oral steriod. Patient will continue use of Voltaren Gel. Continue to work on gaud strengthening and motion exercises. Continue physical therapy. If pain persists we will refer patient to Dr. Rosetta Stephenson for Genicular blocks. 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 Discussed that there is no concerns of infetion or loosening of componets. Today we gave patient a script for formal phyiscal therapy for strength exercise. Adviseddpatient todiscontinue meloxicam due to stomach issues. Discussed that we can prescribe celebrex in the futureif she wishes. To call with questions or concerns. 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) [employer] Other 03-01-2019 History general Narrative - Reported* Type Description Date Medical History diabetes Medical Historyhigh cholesterolMedical HistoryulcersSurgical Historyovarian cyst removalSurgical Historyleft TKA3/2019Surgical JfwfodqKIRZ86/2019Hospitalization Historysee above [facility] [employer] Other Evaluation note* Diagnosis Primary localized osteoarthritis of right hip- Primary Pain in prosthetic joint, initial encounter [facility]* Diagnosis Primary localized osteoarthritis of right hip- Primary [facility]* Diagnosis Right hip pain- Primary Pain in joint, pelvic region and thigh 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, subsequent encounter documented in this encounter [facility] noteNo InformationNoJeanes Hospital [employer] Other Evaluation note* Diagnosis Right hip pain- Primary Pain in joint, pelvic region and thigh Primary localized osteoarthritis of right hip documented in this [facility]* Diagnosis Right knee pain, unspecified chronicity- Primary 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, initial encounter [facility]* Diagnosis Hx of total knee arthroplasty, right- Primary documented in this [facility]* Diagnosis Hx of total knee arthroplasty, right- Primary documented in this encounter [facility] noteNo assessment information availableMain Campus Medical Center Work Phone: Evaluation note* Diagnosis Hx of total knee arthroplasty, right- Primary [facility]* Diagnosis Onset Date Resolution Status Admit Date Right hip pain acuteNovember 2023 10:25am [facility] Work Phone: evaluation note* Diagnosis Osteopenia, unspecified location [facility]* Diagnosis History of revision of total replacement of right knee joint- Primary documented in this [facility]* Diagnosis Right knee pain, unspecified chronicity- Primary Right hip pain Pain in joint, pelvic region and thigh documented in this [facility]* Diagnosis Right hip pain- Primary Pain in joint, pelvic region and thigh Right hip pain Pain in joint, pelvic region and thigh documented [facility] this [facility]* Diagnosis Right hip pain Pain in joint, pelvic region and thigh documented in this [facility]* Diagnosis Breast cancer screening by mammogram Well woman exam with routine gynecological exam Routine gynecological examination documented in this encounter [facility] HealthcareEvaluation note* Diagnosis Right hip pain- Primary Pain in joint, pelvic region and thigh Chronic pain of right knee History of right knee joint replacement [facility]* Diagnosis Right hip pain- Primary Pain in joint, pelvic region and thigh Loosening of prosthesis of right knee joint [facility]* Diagnosis Primary osteoarthritis of left foot- Primary Pain in joint of left foot Hallux valgus (acquired), left foot Difficulty walking Difficulty in walking documented in this encounter [facility] HealthcareEvaluation note* Diagnosis Right hip pain- Primary Pain in joint, pelvic region and thigh Loosening of prosthesis of right knee joint Chronic pain of right knee documented in this encounter [facility]* Diagnosis Low back pain, unspecified back pain laterality, unspecified chronicity, unspecified whether sciatica present- Primary documented in this encounter [facility] Hospital[facility] for referral (narrative)* Consultation (Routine) - New RequestSpecialtyDiagnoses / ProceduresReferred By ContactReferred To Contact Sports Ortho and Primary Care Sports Diagnoses Primary localized osteoarthritis of right hip Kee Rivera MD [address] [place] [address] Triny Armenta DO [address] [place] [address] Referral IDStatusReasonStart DateExpiration DateVisits RequestedVisits [id number] Request * Diagnostic X-Ray (Routine) - Pending ReviewSpecialtyDiagnoses / Procedures Referred By ContactReferred To Contact Diagnoses Pain in prosthetic joint, initial encounter Procedures XR KNEE RIGHT 3 VIEWS Kee Rivera MD [address] [place], [place] [id number] Referral IDStatusReasonStart DateExpiration DateVisits RequestedVisits [id number] Review * Diagnostic X-Ray (Routine) - Pending ReviewSpecialtyDiagnoses / Procedures Referred By ContactReferred To Contact Diagnoses Pain in prosthetic joint, initial encounter Procedures XR KNEE LEFT 3 VIEWS Kee Rivera MD [address] [place] [address] Referral IDStatusReasonStart DateExpiration DateVisits RequestedVisits [id number] Review * Diagnostic X-Ray (Routine) - Pending ReviewSpecialtyDiagnoses / Procedures Referred By ContactReferred To Contact Diagnoses Pain in prosthetic joint, initial encounter Procedures XR BONE LENGTH STUDY Kee Rivera MD [address] [place], [place] [phone] Referral IDStatusReasonStart DateExpiration DateVisits RequestedVisits [id number] Review [facility] for referral (narrative)No reason for referral information availableMccullough-[facility] Work Phone: Reason for visit Narrative* Diagnostic X-Ray (Routine) - New RequestSpecialtyDiagnoses / ProceduresReferred By ContactReferred To Contact Diagnoses History of revision of total replacement of right knee joint Procedures XR KNEE RIGHT 3 VIEWS Kee Rivera MD [address] [place] [address] Phone: tel: fax: Referral IDStatusReasonStart DateExpiration DateVisits RequestedVisits [id number] Request/ [facility] for visit Narrative* Diagnostic X-Ray (Routine) - New RequestSpecialtyDiagnoses / ProceduresReferred By ContactReferred To Contact Diagnoses Right hip pain Procedures XR HIP WITH PELVIS RIGHT Kee Rivera MD [address] [place] [address] Phone: tel: fax: Referral IDSMichael DateExpiration DateVisits RequestedVisits [id number] Request/ [facility] for visit Narrative* Radiology (Routine) - New Request SpecialtyDiagnoses / ProceduresReferred By ContactReferred To Contact Diagnoses Right hip pain Procedures US IMAGING FOR ORTHO Triny Armenta DO [address] [place] [address] Phone: tel: fax: Referral IDSMichael DateExpiration DateVisits RequestedVisits [id number] Request/ [facility] Advance Directives No Advanced Directives Records Found Advance Directive Response Recorded Date/ Time Advance Directives No June 10:00am Code StatusDate ActivatedDate InactivatedCommentsFull Code03/04/2022 3:39 PMCode StatusDate ActivatedDate InactivatedCommentsFull Code03/04/2022 3:39 PMDate ActivatedDate InactivatedComments03/04/2022 3:39 PM Advance Directive Response Recorded Date/ Time Advance Directives No June 11:00am Date ActivatedDate InactivatedComments03/04/2022 3:39 PM Chief Complaint and Reason for Visit Chief Complaint M17.11 Chief Complaint Right Knee Revision Chief Complaint Admit Date M25.551 - Pain in right hip May 8:59am OP SP RT HIP PAIN May 18, 2024 10:25am Reason for Visit Admit Date Right hip pain May 18, 2024 10:25am Reason for Visit Admit Date Primary osteoarthritis of right hip Nove mb2023 10:25am Right hip pain May 18, 2024 10:25am Chief Complaint Admit Date M25.551 - Pain in right hip May 8:59am OP SP RT HIP PAIN May 18, 2024 10:25am *JAIDEN PT* RIGHT HIP JOINT INJ/DS Nov emb2023 1:22pm 6-8 WEEKS July 07, 2024 8: 55am Chief Complaint Admit Date M25.551 - Pain in right hip May 8:59am OP SP RT HIP PAIN May 18, 2024 10:25am *JAIDEN PT* RIGHT HIP JOINT INJ/DS May 1:22pm 6-8 WEEKS July 07, 2024 8: 55am Z96.651 July 07, 2024 9: 34am Reason for Visit Admit Date Primary osteoarthritis of right hip [facility] 2023 10:25am Right hip pain May 18, 2024 10:25am Greater trochanteric bursitis of right h ip July 07, 2024 8:55am History of revision of total replacement of right knee joint July 07, 2024 8:55am Primary osteoarthritis of right hip Romeo rosana 2024 8:55am Chief Complaint Admit Date M25.551 - Pain in right hip May 8:59am OP SP RT HIP PAIN May 18, 2024 10:25am *JAIDEN PT* RIGHT HIP JOINT INJ/DS May 1:22pm 6-8 WEEKS July 07, 2024 8: 55am Z96.651 July 07, 2024 9: 34am OP SP RTKA PAIN July 14, 2024 9: 37am Chief Complaint Admit Date M25.551 - Pain in right hip May 8:59am OP SP RT HIP PAIN May 18, 2024 10:25am *JAIDEN PT* RIGHT HIP JOINT INJ/DS May 1:22pm 6-8 WEEKS July 07, 2024 8: 55am Z96.651 July 07, 2024 9: 34am OP SP RTKA PAIN July 14, 2024 9: 37am CONSULT DR HWANG RT KNEE PAIN July 18, 2024 10:47am Reason for Visit Admit Date Primary osteoarthritis of right [facility] 2023 10:25am Right hip pain May 18, 2024 10:25am Greater trochanteric bursitis of right h ip July 07, 2024 8:55am History of revision of total replacement of right knee joint July 07, 2024 8:55am Primary osteoarthritis of right hip Romeo wayne 2024 8:55am Painful total knee replacement, right Deshawn murcia 2024 9:37am Chronic pain July 18, 2024 1 0:47am Painful total knee replacement, right Deshawn murcia 2024 10:47am Right knee pain July 18, 2024 1 0:47am Chief Complaint Admit Date Pes anserine tendonitis R knee November 09, 2024 10:30am Chief Complaint Admit Date M25.561 G89.29 Z96.651 March 20, 025 8:52am Assessments No Assessments Information Available Family History No Family History Records Found Relationship Condition Age at Onset Recorded Date/T sallie father Family history of co ronary artery bypass surgery Unknown Diabetes mellitusUnknownArthritisUnknownNot SpecifiedMacular degenerationUnknown Presence of cardiac pacemakerUnknownfamily memberArthritisUnknown Relationship Condition Age at Onset Recorded Date/T sallie father Family history of co ronary artery bypass surgery Unknown Diabetes mellitusUnknownArthritisUnknownmotherMacular degenerationUnknown Presence of cardiac pacemakerUnknownfamily memberArthritisUnknownfatherDeceased UnknownmotherDeceasedUnknown Reason for Referral SpecialtyDiagnoses / ProceduresReferred By ContactReferred To Contact Diagnoses 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, subsequent encounter Procedures NUC 3 PHASE LIMITED BONE SCAN [place] BONE IMAGING, 3 PHASE Triny Armenta DO [address] [phone] Referral IDStatusReasonStart DateExpiration DateVisits RequestedVisits [id number] Request//[id number] / Procedures Referred By ContactReferred To Contact Diagnoses Hx of total knee arthroplasty, right Procedures XR KNEE RIGHT 3 VIEWS Jordon Durant, AIR TUBE RELEASER-GRAVITY PROSPECTING SUPERVISOR [address] [place] [address] Referral IDStatusReasonStart DateExpiration DateVisits RequestedVisits [id number] Request/[id number] IDStatusReasonStart DateExpiration DateVisits RequestedVisits [id number] Request04/04/2022528554PyeofsqpeWcfwrpjoa / ProceduresReferred By ContactReferred To Contact Diagnoses Hx of total knee arthroplasty, right Procedures XR KNEE RIGHT 3 VIEWS Kee Rivera MD [address] [place] [address] Referral IDStatusReasonStart DateExpiration DateVisits RequestedVisits [id number]/[id number] / Procedures Referred By ContactReferred To Contact Diagnoses Hx of total knee arthroplasty, right Procedures XR BONE LENGTH STUDY Kee Rivera MD [address] [place], [place] [phone] Referral IDStatusReasonStart DateExpiration DateVisits RequestedVisits [id number] IDStatusReasonStart DateExpiration DateVisits RequestedVisits [id number] Review / Summary Purpose Additional Source Comments Reason for Visit (unrecogniz ed section and content) ReasonCommentsPainSpecialtyDiagnoses / ProceduresReferred By ContactReferred To ContactOrthopaedic Surgery / Orthopaedics Diagnoses Loosening of prosthesis of right knee joint Triny Armenta, DO [address] [place] [address] Phone: tel: fax: Kee Rivera MD [address] [place] [address] Phone: tel: fax: Referral IDStatusReasonStart DateExpiration DateVisits RequestedVisits [id number] Request/[id number] Patient ReasonCommentsPainSpecialtyDiagnoses / ProceduresReferred By ContactReferred To ContactSports Ortho and Primary Care Sports Diagnoses Primary localized osteoarthritis of right hip Kee Rivera MD [address] [place], [place] [phone] Triny Armenta DO [address] [phone] Referral IDStatusReasonStart DateExpiration DateVisits RequestedVisits [id number] Request/[id number]-be SpecialtyDiagnoses / ProceduresReferred By ContactReferred To Contact Diagnoses Hx of total knee arthroplasty, right Procedures XR KNEE RIGHT 3 VIEWS Jordon Durant, AIR TUBE RELEASER-GRAVITY PROSPECTING SUPERVISOR [address] [place] [address] Referral IDStatusReasonStart DateExpiration DateVisits RequestedVisits [id number] Request/[id number] Op Visit ReasonCommentsFollow-upSpecialtyDiagnoses / ProceduresReferred By Contact Referred To Contact Diagnoses Hx of total knee arthroplasty, right Procedures XR KNEE RIGHT 3 VIEWS Kee Rivera MD [address] [place], [place] [phone] Referral IDStatusReasonStart DateExpiration DateVisits RequestedVisits [id number] Fzuessj01/[id number] Op Visit Referral IDStatusReasonStart DateExpiration DateVisits RequestedVisits [id number] Review/[id number] up DEXA SCANReasonCommentsPainReasonCommentsPainSpecialtyDiagnoses / ProceduresReferred By ContactReferred To ContactSports Ortho and Primary Care Sports Diagnoses Right hip pain Kee Rivera MD [address] [place], [place] [id number] Phone: tel: fax: Mary Triny L, DO [address] [facility] [place] [address] Phone: tel: fax: Referral IDStatusReasonStart DateExpiration DateVisits RequestedVisits [id number] Request/[id number] Women Visit ElagnuKymlhzyuDpsuNlzzgx-crFpjjssOpjydydeZftxfv-zeOvj results for labsFollow-up ReasonCommentsFoot 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 Patient states hurts to walk, ongoing since last visit with us in 2020. Patient states has gotten worse within the last few months. Pt states she is also having knee,hip, and back pain, states her right knee replacement is loose, relates arthritis in her feet. Pt uses voltaren, icing, patient wears inserts. PCP: Dr. Garvey LV 01/2025, A1C: 6.9 ( 05/2024), BS: 150s, SS: 7 Care Teams (unrecognized sec tion and content) Team Status: Active Member Role Status Dates Prem Garvey MD Primary Care Provider Active Team Status: Inactive Member Role Status Dates Prem Garvey MD Primary Care Provider Active Start: May 18, 2024 End: May 18Amandeep Lay II ProviderActiveStart: May 18, 2024 End: May 18, 2024 Team Status: Active Member Role Status Dates Prem Garvey MD Primary Care Provider Active Start: May 18, 2024 Amandeep Smith II ProviderActiveStart: May 18, 2024 Team MemberRelationshipSpecialtyStart DateEnd Date Prem Garvey MD [address] [facility] [place] [address] PCP - GeneralFamily [facility]10/10/21Team MemberRelationshipSpecialtyStart DateEnd Date Prem Garvey MD [address] [facility] [place] [address] PCP - GeneralFamily Medicine10/10/21Team MemberRelationshipSpecialtyStart DateEnd Date Prem Garvey MD [address] [place] [facility] [address] PCP - GeneralFamily Medicine10/10/21Team MemberRelationshipSpecialtyStart DateEnd Date Prem Garvey MD [address] [place] [facility] [place] [address] PCP - Generalmily Medicine10/10/21Team MemberRelationshipSpecialtyStart DateEnd Date Prem Garvey MD [address] [place] [facility] [place] [address] [facility] - [facility]10/10/21Team MemberRelationshipSpecialtyStart DateEnd Date Prem Garvey MD [address] [place] [facility] [place] [address] [facility] - [facility] Medicine10/10/21Team MemberRelationshipSpecialtyStart DateEnd Date Prem Garvey MD [address] [place] [facility] [place] [address] [facility]CP - [facility]Ke[facility]ly [facility]10/10/21Team MemberRelationshipSpecialtyStart DateEnd Date Prem Garvey MD [address] [place] [facility] [place] [address] [facility] - [facility] Medicine10/10/21 Team Status: Inactive Member Role Status Dates Prem Garvey MD Primary Care Provider Active Amandeep Bridges ProviderActiveTeam MemberRelationshipSpecialtyStart DateEnd Date Prem Garvey MD [address] [place] [facility] [place] [address] [facility] Medicine10/10/21Team MemberRelationshipSpecialtyStart DateEnd Date Prem Garvey MD [address] [facility] [place] [address] [place] [address] PCP - GeneralFadely Medicine10/10/21Team MemberRelationshipSpecialtyStart DateEnd Date Prem Garvey MD [address] [facility] [place] [address] [place] [address] [facility]CP - [facility] Medicine10/10/21Team MemberRelationshipSpecialtyStart DateEnd Date Prem Garvey MD [address] [facility] [place] [address] [place] [address] [facility] - [facility] Medicine10/10/21Team MemberRelationshipSpecialtyStart DateEnd Date Prem Garvey MD [address] [facility] [place] [address] [facility]CP - [facility] Medicine02/09/23 Team Status: Inactive Member Role Status Casey Garvey MD Primary Care Provider Active Start: May 30, 2024 End: May 30, 2024Amandeep Coreas ProviderActiveStart: May 30, 2024 End: May 30, 2024 Team Status: Active Member Role Status Casey Garvey MD Primary Care Provider Active Start: May 30, 2024 Amandeep Coreas ProviderActiveStart: May 30, 2024 Team Status: Inactive Member Role Status Dates Prem Garvey MD Primary Care Provider Active Start: July 07, 2024 End: July 07, 2024Amandeep Smith II ProviderActiveStart: July 07, 2024 End: July 07, 2024 Team Status: Inactive Member Role Status Casey Garvey MD Primary Care Provider Active Start: July 14, 2024 End: July 14, 2024Amandeep Smith II ProviderActiveStart: July 14, 2024 End: July 14, 2024 Team Status: Inactive Member Role Status Dates Prem Garvey MD Primary Care Provider Active Start: July 18, 2024 End: July 18, 2024ThAmandeep Mccabe ProviderActiveStart: July 18, 2024 End: July 18, 2024Team MemberRelationshipSpecialtyStart DateEnd Date Prem Garvey MD [address] [place] [address] PCP - [facility]10/10/21Team MemberRelationshipSpecialtyStart DateEnd Date Prem Garvey MD [address] [place] [address] PCP - [facility]10/10/21Team MemberRelationshipSpecialtyStart DateEnd Date Prem Garvey MD [facility] - [facility]10/10/21Team MemberRelationshipSpecialtyStart DateEnd Date Prem Garvey MD PCP - Generalmi Medicine10/10/21Team MemberRelationshipSpecialtyStart DateEnd Date Prem Garvey MD [facility] - [facility]10/10/21Team MemberRelationshipSpecialtyStart DateEnd Date Prem Garvey MD [facility] - [facility]10/10/21 Team Status: Inactive Member Role Status Dates Prem Garvey MD Primary Care Provider Active Start: November 09, 2024 End: November 09, 2024Amandeep Bridges ProviderActiveStart: November 09, 2024 End: November 09, 2024Team MemberRelationshipSpecialtyStart DateEnd Date Prem Garvey MD [address] [facility] [address] [facility] - [facility]02/09/23Team MemberRelationshipSpecialtyStart DateEnd Date Prem Garvey MD [address] [facility] [address] PCP - [facility]02/09/23Team MemberRelationshipSpecialtyStart DateEnd Date Prem Garvey MD PCP - [facility]10/10/21 Team Status: Inactive Member Role Status Dates Prem Garvey MD Primary Care Provider Active Start: March 20, 2025 End: March 20, 2025Jeremaleida Armenta DOAtthieu ProviderActiveStart: March 20, 2025 End: March 20, 2025Team MemberRelationshipSpecialtyStart DateEnd Date Prem Garvey MD [address] [facility] [place] [address] [facility] - [facility]02/09/23Team MemberRelationshipSpecialtyStart DateEnd Date Prem Garvey MD [address] [facility] [address] PCP - [facility] Medicine02/09/23Team MemberRelationshipSpecialtyStart DateEnd Date Prem Garvey MD [address] [facility] [address] PCP - [facility] Medicine8/7/23Team MemberRelationshipSpecialtyStart DateEnd Date Prem Garvey MD PCP - [facility] Medicine10/10/21Team MemberRelationshipSpecialtyStart DateEnd Date Prem Garvey MD PCP - [facility]10/10/21 Goals (unrecognized section and content) Goals may be documented in a n alternate section INFORMATION SOURCE (unrecogn ized section and content) DATE CREATED AUTHOR 11/03/2022 [facility] DATE CREATED AUTHOR AUTHOR'S ORGANIZ ATION 07/30/2024 [facility] DATE CREATED AUTHOR AUTHOR'S ORGANIZ ATION 04/07/2025 [facility] DATE CREATED AUTHOR AUTHOR'S ORGANIZ ATION 04/17/2025 [facility] DATE CREATED AUTHOR AUTHOR'S ORGANIZ ATION 05/13/2025 [facility] FOR RECORDS PERTAINING TO PATIENTS WHO ARE [...] BE BASED ON THE PRIMARY CLINICAL RECORDS. [employer] provides no warranty or guarantee of the accuracy or completeness of information in this document.
== END 2025-05-15 08:50 | disposition home or self-care (01) ==
LOC: MAMMO 08:49
PROVIDERS: PCP Family Medicine; Visit Provider Obstetrics & Gynecology
DX: Z12.31 Encounter for screening mammogram for malignant neoplasm of breast (principal); Z80.51 Family history of malignant neoplasm of kidney
CPT/HCPCS: 77063; 77067

== ENCOUNTER 2025-07-05 11:12 | Outpatient (OUT) | payer MEDICARE, BC, SELFPAY ==
--- OUTSIDE RECORDS SUMMARY | 2024-06-10 05:15 | XMS_ITS ---
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, [place], [address], Progress Notes * Katt ARCHER MDOB:1960 (64 yo F)Acc No.[id number]:06/10/2024 UNLOCKED PROGRESS NOTE Progress Note Patient: Cathie PLUNKETT Katt Parnell :?Prem Verdin ([facility] MDDOB:1960???Age: 63 Y???Sex:FemaleDate:4Phone:[phone]:[address]-[phone] Subjective: * Chief Complaints: * 1 . Flu shot. * Medical History: Objective: * Vitals: Assessment: Plan: * Treatment: * * Electronic signature of Fernando Verdin MD, [id number] on 07/05/2025 at 11:16 AM EST Sign off status: PendingVisit Status:?CANCPHONE (Cancelled Phone) * Provider: Marie Verdin ([facility])MD Date: 1 08/11/2023 Generated for Printing/Faxing/eTransmitting on:?07/05/2025 11:16 AM EST
--- OUTSIDE RECORDS SUMMARY | 2025-07-03 05:30 | XMS_ITS ---
Author Organization [facility] [place] Address [address] [place] [address] Care Team Providers Care Dairy Quality Assurance Officer Name Role Phone Fernando Verdin Primary Care Provider Allergies Allergen (clinical drug ingredient) Drug/Non Drug Allergy documented on EMR Reaction Allergy Type Onset Date Status pioglitazone Actos edema Drug Allergy Activesulfamethoxazole / trimethoprimBactrimhivesDrug AllergyActivelisinopril LisinoprilcoughDrug AllergyActiveSubstance with sulfonamide structure and antibacterial mechanism of action (substance)Sulfa AntibioticsUnknownDrug AllergyActivetramadolTramadolitchingDrug AllergyActivediclofenacDiclofenac stomach upsetDrug AllergyActive Results Component Value Reference Range Notes UA DIP NONAUTO WO MICRO (810 02) - IN OFFICE (Not yet reviewed by provider) Interpretation: Performing Lab: Notes/Report: COLOR lt yellow PEFQFOEamrvcELSVITK5358+NQITGRFUTgTQFKEX8WTQMPVGW GRAVITY1.273QZLKFjJQ8RSKCPVZ77 UROBILINOGENnNITRITEnLEUKOCYTE ESTERASEn REASON FOR VISIT yeast infection/itching- heaviness in the pelvic area, urinary urgency, On Jardiance and think thismay be causing the problem- started in February Medications Medication SIG (Take, Route, Frequency, Duration) Notes Start Date End Date Status Mounjaro 2.5 MG/0.5ML 2.5 Subcutaneous weekly 5ActiveSimvastatin 20 MGTAKE 1 TABLET BY MOUTH EVERY DAY; Duration: 90 daysActiveAmoxicillin 500 MG4 caps Orally once; Duration: 1 days5Active Diflucan 100 MG1 tablet Orally daily; Duration: 10 days12/29/2025ActiveCalcium Plus Vitamin DActiveOneTouch Ultra Blue Test - Use 1 strip In Vitro once daily; Duration: 100 days Dx: E11.9 5ActiveLosartan Potassium 100 MGTAKE 1/2 ORALLY ONCE A DAY 90 DAYS; Duration: 90ActiveJanuvia 100 MG1 tablet Orally Once a day; Duration: 90 days 3ActiveGlimepiride 4 MGTAKE 2 TABLETS BY MOUTH EVERY DAY FOR 90 DAYS; Duration: 90Active Social History Tobacco Use: Social History Observation Description Date Details (start date - stop date) Never Smoker NA - NA Tobacco Use/Smoking Question Answer Notes Patient is a nonsmoker Problems Problem Type SNOMED Code ICD Code Onset Dates Problem Status W/U Status Risk Notes 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 (066397199) Pelvic pressure in female (N94.89) Activeconfirmed Vital Signs Weight 190.8 lbs 07/03/2025 Height 64 in 07/03/2025 Blood pressure systolic 108 mm Hg 07/03/20 25 Blood pressure diastolic 64 mm Hg 025 BMI 32.75 kg/m2 07/03/2025 Encounters Encounter Location Date Provider Diagnosis [facility] [address] [place] [address] 07/03/2025 Fernando Hoy Pelvic pressure in female N94.89 and Type 2 diabetes mellitus without complications E11.9 Assessments Encounter Date Diagnosis (ICD Code) Assessment Notes Treatment Notes Treatment Clinical Notes Section Notes 07/03/2025 Pelvic pressure in female (ICD-1 0 - N94.89) 07/03/2025Type 2 diabetes mellitus without complications (ICD-10 - E11.9)Failing on glimepreide, januvia - unable to tolerate jardianc adn metformin and actos - needs Fzxbferh86/29/2025OtherYearly Flu Shot Yearly Eye Exam Check Feet Daily. Plan Of Treatment Medication Medication Name Sig Start Date Stop Date Notes Jardiance 10 MG 1 tablet Orally Once a day 01/24/2025 Mounjaro 2.5 MG/0.5ML2.5 Subcutaneous lexnyw9207/03/2025moxicillin 500 MG4 caps Orally once; Duration: 1 days07/03/2025Diflucan 100 MG1 tablet Orally daily; Duration: 10 days07/03/2025Treatment Notes Assessment Notes Type 2 diabetes mellitus marcelina murphy complications Failing on glimepreide, januvia - unable to tolerate jardianc adn metformin and actos - needs Mounjaro Other Yearly Flu Shot Year ly Eye Exam Check Feet Daily. Pending Test Test Name Order Date UA DIP NONAUTO WO MICRO (40597) - IN OFF ICE 07/03/2025 Next Appt Details Provider Name:Fernando Parnell Lambert, 10:15:00 AM, [address] [facility] [place], [address], Progress Notes * Katt ARCHER MDOB:1960 (64 yo F)Acc No.[id number]:07/03/2025 UNLOCKED PROGRESS NOTE Progress Note Patient: Katt EPPERSON :?Prem Kristie Verdin ([facility]), MDDOB:1960???Age: 64 Y???Sex:FemaleDate:07/03/2025Phone:[phone]:[address] [place], [place] [id number] In:10:26 AM ESTCheck Out:11:23 AM EST Subjective: * Chief Complaints: * 1 . Yeast infection/itching- heaviness in the pelvic area, urinary urgency. 2. On Jardiance and think this may be causing the problem- started in February. * HPI: ???General:? On rdian? e- having? - not helping sugars. ???Diabetes mellitus:?Diabetes:?____.?Good Control:?admits.?Routinely Checking Blood Sugar:?admits.?Last HbA1c:?Date: .?Last Eye Exam:?Date: .?Vision Changes:?denies.?Neuropathy:?denies.?Foot Ulcers:?denies.?Nephropathy:?denies.?Polyuria:?denies.?Polydipsia:?denies.?Compliant with Statin:?denies.?Compliant with CHARLIE/ARB:?denies.? * ROS: ???General/Constitutional:?Fatigue or Weakness?denies.?Cardiovascular:?Edema?denies.?Chest pain?denies.?Palpitations?denies.?Respiratory:?Cough?denies.?Shortness of breath?denies.?Gastrointestinal:?Blood in stool?denies.?Constipation?denies.? Diarrhea?denies.?Nausea?denies.?Vomiting?denies.?Neurologic:?Dizziness?denies.?Syncope?denies.?Memory loss?denies.? * Medical History: A nxiety, Cervical disc disease, COVID-19, Diabetes mellitus, Fibrocystic breast disease, Hyperlipidemia, Osteopenia, Pleurisy, Ptosis, Vitamin D deficiency, Kidney stones, Trochanteric bursitis, right hip. * Surgical History: L eft knee Total Arthroplasty- Dr. Camara 09/27/2018, Right Total Knee 04/2019, EGD 04/17/2021, Revision Right Knee- 03/05/2022. * Hospitalization/Major Diagno stic Procedure: D enies Past Hospitalization. * Family History: F ather: , Alzheimers, diagnosed with Diabetes, Heart Disease. M other: , diagnosed with Heart Disease. B rother(s): alive, diagnosed with Cancer. * Social History: ???Tobacco Use:?Tobacco Use/Smoking?Patient is a?nonsmoker * Medications: T aking Calcium Plus Vitamin D , Taking Glimepiride 4 MG Tablet TAKE 2 TABLETS BY MOUTH EVERY DAY FOR 90 DAYS , Taking Januvia(SITagliptin Phosphate) 100 MG Tablet 1 tablet Orally Once a day , Taking Jardiance(Empagliflozin) 10 MG Tablet 1 tablet Orally Once a day , Taking Losartan Potassium 100 MG Tablet TAKE 1/2 ORALLY ONCE A DAY 90 DAYS , Taking OneBitrockruch Ultra Blue Test(Glucose Blood) - Strip Use 1 strip In Vitro once daily Dx: E11.9, Taking Simvastatin 20 MG Tablet TAKE 1 TABLET BY MOUTH EVERY DAY , Medication List reviewed and reconciled with the patient * Allergies: B actrim: hives - Allergy, Tramadol: itching - Allergy, Actos: edema - Allergy, Lisinopril: cough - Side Effects, Sulfa Antibiotics, Diclofenac: stomach upset. Objective: * Vitals: W t:190.8lbs, Ht: 64 in, BP:108/64mm Hg, BMI:32.75Index, Ht-cm: 162.56 cm, Wt-k.55 kg. * Examination: ???General Examination: ?GENERAL APPEARANCE:? well developed, well nourished, in noacute distress.?LUNGS:? clear to auscultation bilaterally.?CARDIO:? S1, S2 normal, no murmurs, rubs, gallops.?ABDOMEN:? soft, nontender , nondistended.?GENITOURINARY:? bladder nondistended, urethra normal.?MUSCULOSKELETAL:? full range of motion.?VASCULAR:? pulses normal, no edema, no carotid bruits. ?SKIN:? no rashes, warm and dry.?NEUROLOGIC:? alert, oriented to time, place, & person. ?PSYCH:? mood/affect full range.?FOOT EXAM:?Date?/ ?Sensory testing performed:?sensations normal ?Sensory and motor testing performed:?sensations normal ?Pedal pulse taking performed:?2+ ?Visual exam of foot performed:?Yes??? Assessment: * Assessment: 1.?Pelvic pressure in female - N94.89 (Primary)???2.?Type 2 diabetes mellitus without complications - E11.9??? Plan: * Treatment: Stop Jardiance Tablet, 10 MG, 1 tablet, Orally, Once a day;?Start Diflucan Tablet, 100 MG, 1 tablet, Orally, daily, 10 days, 10 Tablet, Refills 1;?Start Mounjaro Solution Auto-injector, 2.5MG/0.5ML, 2.5, Subcutaneous, weekly, 1, Refills 11;?Start Amoxicillin Capsule, 500 MG, 4 caps,Orally, once, 1 days, 4, Refills 4.?LAB: UA DIP NONAUTO WO MICRO (15597) - IN OFFICE (Collection Date & Time - 07/03/2025)2.?Type 2 diabetes mellitus without complications? Notes: Failing on glimepreide, januvia - unable to tolerate jardianc adn metformin and actos - needs Mounjaro??3.?Others? Notes: Yearly Flu Shot Yearly Eye Exam Check Feet Daily.?? * Labs: * L ab: UA DIP NONAUTO WO MICRO (55509) - IN OFFICE (Collection Date & Time - 07/03/2025) ?ValueReference Range?COLORlt yellow * C LARITY clear * G LUCOSE 1000+ * B ILIRUBIN n * K ETONE 5 * S PECIFIC GRAVITY 1.010 * B LOOD n * P H 6 * P ROTEIN 15 * U ROBILINOGEN n * N ITRITE n * L EUKOCYTE ESTERASE n * Procedure Codes: 8 1002 URINALYSIS WO MICRO * * Electronic signature of Fernando Verdin MD, [id number] on 07/05/2025 at 11:16 AM EST Sign off status: PendingVisit Status:?CHK (Check Out) * Provider: Marie Verdin ([facility])MD Date: 1 Generated for Printing/Faxing/eTransmitting on:?07/05/2025 11:16 AM EST History and Physical Notes * HPI (History of Present Illness) CategorySub-CategoryDetailNotesCategory NotesGeneralOn rdian e- having - not helping sugarsDiabetes mellitusDiabetes:____Good Control:admitsRoutinely Checking Blood Sugar:admitsLast HbA1c:Date: Last Eye Exam:Date: Vision Changes:deniesNeuropathy:deniesFoot Ulcers:deniesNephropathy:deniesPolyuria: deniesPolydipsia:deniesCompliant with Statin:deniesCompliant with CHARLIE/ARB:denies Examination CategorySub-CategoryDetailNotesCategory NotesGeneral ExaminationGENERAL APPEARANCE:well developed, well nourished, in no acute distressCARDIO:S1, S2 normal, no murmurs, rubs, gallopsLUNGS:clear to auscultation bilaterallyABDOMEN: soft, nontender , nondistendedNEUROLOGIC:alert, oriented to time, place, & personSKIN:no rashes, warm and dryMUSCULOSKELETAL:full range of motionPSYCH: mood/affect full rangeFOOT EXAM:Date: /Sensory testing performed:: sensations normalSensory and motor testing performed:: sensations normalPedal pulse taking performed:: 2+Visual exam of foot performed:: YesGENITOURINARY:bladder nondistended, urethra normalVASCULAR:pulses normal, no edema, no carotid bruits
--- OUTSIDE RECORDS SUMMARY | 2025-07-05 11:17 | XMS_ITS | Clinical Summary ---
Author Organization [facility] Address [address] [place] [address] Care Team Providers Care Seamless Tube Roller Name Role Phone Prem Verdin MD Primary Care Provider [phone] Allergies Active AllergyReactionsCriticalityNoted DateCommentsPioglitazoneItchingHigh 10/10/2021iclofenacNausea AknqNnnvhc73/07/3621TxgsjfzzzjFeqxlUkj16/07/2022ulfa TsvrqezeutpXfpglUcka70/07/2022ulfamethoxazole-PmkbrjfzlwbeYoifUfl34/07/2023 BcbzytjcYawicufKrdbeh65/07/2022 Medications MedicationSigDispense QuantityRefillsLast FilledStart DateEnd DateStatus Januvia [...] by Nasal route once for 1 dose. Bruin into the nose as directed. Call 911. [...] tablet Take 1 tablet by mouth daily.5Active Wealink.comTouch Ultra Blue Test Strip strip Use 1 strip In Vitro once daily for 100 days Dx: E11.905Active Active Problems ProblemNoted DateDiagnosed Date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, initial othjqocdd54/30/2022 Encounters DateTypeDepartmentCare JmjuYqazrsfomqd07/30/2025 9:30 AM EDTOffice Visit [facility] [address] [place] [address] Kee Serrato MD Low back pain, unspecified back pain laterality, unspecified chronicity, unspecified whether sciatica present (Primary Dx)05/04/2025 8:30 AM EDTOffice Visit [facility] [address] [place] [address] Rafael Hernandez DO Right hip pain (Primary Dx); Loosening of prosthesis of right knee joint; Chronic pain of right kneefrom Last 3 Months Social History Tobacco UseTypesPacks/DayYears UsedDateSmoking Tobacco: NeverSmokeless Tobacco: Never Tobacco Cessation:Counseling Given: Not Answered Alcohol UseStandard Drinks/WeekCommentsNot Currently0 (1 standard drink = 0.6 oz pure alcohol)CommentsUnknownSex and Gender InformationValueDate Recorded Sex Assigned at BirthNot on fileLegal GylBoxfxn16/02/2022 2:13 PM ESTGender IdentityNot on fileSexual OrientationNot on file Last Filed Vital Signs Vital SignReadingTime TakenCommentsBlood Wunaerhv545/6208 12:50 PM EDT Cxzhk6647/31/2022 12:50 PM JZTQkitumkoeou86.4 ??C (97.6 ??F)05/04/2025 8:31 AM EDTRespiratory Xxkx747203/05/2022 12:50 PM EDTOxygen Btjdrvrkuv81%03/05/2022 12:50 PM EDTInhaled Oxygen Concentration--Jpggyo56.1 kg (189 lb 12.8 oz)05/04/2025 9:20 AM HXTVorimg331.6 cm (5' 4 )05/04/2025 9:20 AM EDTBody Mass Index32.58 05/04/2025 9:20 AM EDT Plan of Treatment DateTypeDepartmentCare Team (Latest Contact Info)Hpzdslawamg23/10/2026 10:00 AM ESTOffice Visit [facility] [address] [place] [address] Gerardo Malik, DO [address] [place] [address] 08/17/2025 9:30 AM ESTOffice Visit [facility] [address] [place] [address] Rafael Hernandez, [address] [place] [address] Health MaintenanceDue DateLast DoneCommentsDEXA SCAN ZPQJKDFERE59/06/1961 HEPATITIS C VIRUS BQRQCYUFH24/06/1985YPPBHXJ88/06/1959TDAP (ADULT)1977 CERVICAL CANCER SCREENING VZXPYGPZBO82/06/1980LIPID FTJDZSLAF25/06/1999 COLORECTAL CANCER SCREENING RUDIDWHNVW08/06/2004PNEUMOCOCCAL VACCINE SERIES (1 of 1 - PCV)2008ZOSTER (SHINGLES) VACCINE (1 of 2)2008MAMMOGRAM SCREENING ZUJPLMYCBM68/20/202310/OVID-19 VACCINE (2024- season) , 10/19/2020, 09/21/2020INFLUENZA VACCINE (#1)2025 06/10/2024, 04/24/2022, 05/24/2021, Additional history existsRSV VACCINE (1 - 1- dose 75+ series)2033HEP B VACCINEAged OutNo longer eligible based on patient's age to complete this topic Medical Devices ImplantedTypeAreaManufacturerDevice IdentifierShelf Expiration DateModel / Serial / LotPalacos R & [employer] Bone Cement High-Viscosity With Gentamicin - [id number] Implanted:Qty: 1 on 03/04/20[facility] 05/05/2025/ / [id number] Platform Insert Implanted:Qty: 1 on 03/04/2022 by Kee Serrato MD at [facility]: Knee [id number] / / [id number] [employer] Bone [employer]ement High-Viscosity With Gentamicin - [id number] Implanted:Qty: 2 on 03/04/2022 by Kee Serrato MD at [facility]: Knee 07/05/2025/ / [id number] Distal Femoral Augment Implanted:Qty: 1 on 03/04/2022 by Kee Serrato MD at [facility]: Knee [id number]/30/[id number] / / [id number] Crs Femoral Implanted:Qty: 1 on 03/04/2022 by Kee Serrato MD at [facility]: Knee [id number]/30/[id number] / / [id number] Tibial Base Rotating Platform Implanted:Qty: 1 on 03/04/2022 by Kee Serrato MD at [facility]: Knee FSIBEOP31/31/[id number] / / [id number] Tibial Sleeve Porocoat Implanted:Qty: 1 on 03/04/2022 by Kee Serrato MD at [facility]: Knee ZILOGVC27/31/[id number] / / [id number] Pressfit Stem Implanted:Qty: 1 on 03/04/2022 by Kee Serrato MD at [facility]: Knee ATQVUNU30/31/[id number] / / [id number] Pressfit Stem Implanted:Qty: 1 on 03/04/2022 by Kee Serrato MD at [facility]: Knee WEXOHXA57/29/[id number] / / [id number] Distal Femoral Augment Implanted:Qty: 1 on 03/04/2022 by Kee Serrato MD at [facility]: Knee ZOHAHUF63/30/[id number] / / [id number] Insurance Advance Directives For more information, please contact: [phone] (7:30 AM - 6PM [facility], Thursday-Thursday) * Full Code (Latest Code Status on File) Date ActivatedDate InactivatedComments03/04/2022 3:39 PM Care Teams Team MemberRelationshipSpecialtyStart DateEnd Date Prem Verdin MD PCP - GeneralFamily Medicine10/10/21
--- OUTSIDE RECORDS SUMMARY | 2025-07-05 11:17 | XMS_ITS | Patient Health Record ---
Author Organization [facility] in [place] Address [address] [place] [address] Care Team Providers Care Ammonia Operator Name Role Phone Fernando Garvey Primary Care Provider [phone] Allergies Allergen (clinical drug ingredient) Drug/Non Drug [...] Interpretation: Performing Lab: Notes/Report: COLOR lt yellow NZFLLVYeemelPLAKEUX3123+BEIAKCIBLnPXSZHS9TQEXMXXB GRAVITY1.872PGOLSbKU6QIJNJGK08 UROBILINOGENnNITRITEnLEUKOCYTE ESTERASEnFREE T3 Reviewed date:07/28/2024 11:48:58 AM Interpretation: Performing Lab: Notes/Report: [facility] ,Free T32.452.18-3.98 pg/mLPerforming Lab:see noteML - [facility] LB LIPID PROFILE Reviewed date:07/28/2024 11:48:58 AM Interpretation: Performing Lab: Notes/Report: [facility] ,Brsqyybmrphzx288<=150 mg/hEUjctgeaswiz063<=200 mg/dLHDL Jujkzvkftcx9868-26 mg/dL <40 mg/dl - HIGH CARDIOVASCULAR RISK > or =60 mg/dl - LOW CARDIOVASCULAR RISK LDL Cholesterol Zqvqcoviom11.0 >190 mg/dl VERY HIGH 100-129 mg/dl NEAR OR ABOVE OPTIMAL 130-159 mg/dl BORDERLINE HIGH <100 mg/dl OPTIMAL 160-189 mg/dl HIGH VLDL BUFOQLCHEGJ10.0Chol HDL Ratio3.0 7.1 - 11.0 MODERATE RISK 4.4 - 7.1 AVERAGE RISK >11.0 HIGH RISK 3.3 - 4.4 LOW RISK Performing Lab:see note - [facility] LBPROF 14(COMP METB) Reviewed date:07/28/2024 11:48:58 AM Interpretation: Performing Lab: Notes/Report: [facility] ,Nvfbxw575666-899 mmol/LPotassium4.23.5-5.1 mmol/RVgvjarsi72544-769 mmol/LCarbon Fxbvulp92.421.0-32.0 mmol/LAnion Gap14.3Szrrruu83539-377 mg/dLBlood Urea Dnyflgtz92.07.0-18.0 mg/dLCreatinine1.160.55-1.02 mg/dLEstimated GFR ( Bxdqhax59>=60 mL/min/1.73m 2Estimated GFR (Non- Ame47>=60 mL/min/1.73m 2 BUN Creatinine Ratio13.2Txpudeo1.18.5-10.1 mg/dLBilirubin Total0.40.2-1.0 mg/dL Aspartate Amino Dnlauuvcmgb003-68 U/LAlanine Lhedcclxmbqtnner8244-91 U/LAlkaline Bbvjmyjrosc0210-100 U/LTotal Protein6.76.4-8.2 g/dLAlbumin Level3.73.4-5.0 g/dL Globulin3.0Albumin Globulin Ratio1.2Performing Lab:see note - [facility] LBT4 Reviewed date:07/28/2024 11:48:58 AM Interpretation: Performing Lab: Notes/Report: [facility] ,T4 Thyroxine6.404.80-13.90 ug/dLPerforming Lab:see [facility] LBTSH Reviewed date:07/28/2024 11:48:58 AM Interpretation: Performing Lab: Notes/Report: [facility] ,Thyroid Stimulating Hormone1.9170.358-3.740 uIU/mLPerforming Lab:see noteML - [facility] LBMM tomosynthesis screening BI Reviewed date:05/15/2025 12:36:48 PM Interpretation: Performing Lab: Notes/Report: Source Facility: [facility] [place] [address] [place] [address] Mammography Report Signed Patient: KATT ARCHER MR#: [id number] : 1960 Acct:[id number] Age/Sex: 64 / F ADM Date: 05/15/25 Loc: MAMMO Attending Dr: Dawn Brewer D.O. Ordering Physician: Dawn Brewer D.O. Results: Date of Service: 05/15/25 Follow Up: Procedure(s): MM tomosynthesis screening BI Accession Number(s): [id number] cc: Dawn Brewer D.O.; Rafa Garvey M.D. Patient Name: KATT ARCHER MR#: [id number] : 1960 Exam Date: 05/15/2025 Ordering Doctor: DR DAWN BREWER . RADIOLOGY REPORT PROCEDURE: MM TOMOSYNTHESIS SCREENING BI COMPARISON: MM TOMOSYNTHESIS SCREENING BI, 05/13/2024. MM TOMOSYNTHESIS SCREENING BI, 05/12/2023. MG MAMM SCREEN 3D CARISSA CAD, 04/24/2022. MG MAMM SCREEN 3D CARISSA CAD, 03/29/2021. INDICATIONS: Screening Calculator Name NCI Breast Cancer Risk Assessment Tool 5 Year Breast Cancer Risk 1.90% Lifetime Breast Cancer Risk 6.70% Personal Breast Cancer No Personal Ovarian Cancer No Treatments None Family Cancers Brother with kidney cancer at age 67. LOCATION: [facility] BREAST COMPOSITION: There are scattered areas of fibroglandular density. FINDINGS: RIGHT BREAST: No significant suspicious finding. Similar benign-appearing calcifications are present. Similar focal asymmetries are present. LEFT BREAST: No significant suspicious finding. Similar benign-appearing calcifications are present. Similar focal asymmetries are present. DIAGNOSTIC CATEGORY 2--BENIGN FINDING. NO CHANGE FROM COMPARISON. RECOMMENDATIONS: ROUTINE MAMMOGRAM AND CLINICAL EVALUATION IN 12 MONTHS. Dictated by: Tomas Arambula MD on 05/15/2025 at 11:10 Approved by: Tomas Arambula MD on 05/15/2025 at 11:13 Dictated By: Tomas Arambula M.D. Signed By: 05/15/25 1115 DD/ 1114 TD/TT: Vocal Teacher:CBC AUTO DIFF Reviewed date:07/28/2024 11:48:58 AM Interpretation: Performing Lab: Notes/Report: [facility] ,White Blood Count5.14.0-11.0 10 3/uLRed Blood Count4.334.20-5.40 10 6/uL Rbhjtwlzbc09.012.0-16.0 g/pEPhgnlmrvin18.836.0-48.0 %Mean Corpuscular Wugwic43.2 81.0-99.0 fLMean Corpuscular Osouaddoqo72.026.7-34.0 pgMean Corpuscular HGB Conc 31.929.9-35.2 g/dLRed Cell Distribution Width12.211.0-15.0 %Platelet Pixwo053 150-450 10 3/uLMean Platelet Volume8.99.5-13.5 fLNeutrophils Percent Auto58.5 43.0-75.0 %Lymphocytes Percent Auto30.120.5-60.0 %Monocytes Percent Auto8.41.7- 12.0 %Eosinophils Percent Auto2.20.9-7.0 %Basophils Percent Auto0.60.2-2.0 % Immature Granulocytes Pct Auto0.20.0-0.5 %Neutrophils Absolute Auto3.01.4-6.5 10 3/uLLymphocytes Absolute Auto1.51.2-3.8 10 3/uLMonocytes Absolute Auto0.40.3-0.8 10 3/uLEosinophils Absolute Auto0.10.0-0.7 10 3/uLBasophils Absolute Auto0.00.0- 0.1 10 3/uLImmature Granulocytes Abs Auto0.010.00-0.03 10 3/uLPerforming Lab:see noteML - [facility] LBUS aorta Reviewed date:08/09/2024 02:08:44 PM Interpretation: Performing Lab: Notes/Report: Source Facility: [place] [address] [address] Ultrasound Report Signed Patient: KATT ARCHER MR#: [id number] : 1960 Acct:[id number] Age/Sex: 63 / F ADM Date: 08/09/24 Loc: US Attending Dr: Rafa Garvey M.D. Ordering Physician: Rafa Garvey M.D. Date of Service: 08/09/24 Procedure(s): US aorta Accession Number(s): [id number] cc: Rafa Garvey M.D. The [place] [address] Patient Name: KATT ARCHER MRN: [id number] date: 1960 Sex: F Assigned Patient Location: Current Patient Location: Accession/Order Number: [id number] Exam Date: 08/09/2024 08:25 Report Date: 08/09/2024 09:30 At the request of: RAFA GARVEY Procedure: US aorta EXAM: US aorta HISTORY: Hypertension. ; Family history of abdominal aortic aneurysm COMPARISON: CT abdomen pelvis 12/26/2020 TECHNIQUE: Ultrasound was performed of the abdominal aorta. FINDINGS: AORTA: The aorta is atherosclerotic, but there is no visible aneurysm or occlusion. OTHER: Negative. US/US aorta IMPRESSION: 1. Evaluation is slightly limited by patient body habitus. 2. No aortic aneurysm. Electronically authenticated by: JOE DUTTON Date: 08/09/2024 09:30 Dictated By: Joe Dutton M.D. Signed By: 08/09/24931 DD/ 9 TD/TT: Vocal Teacher:VITAMIN D 25 [place] Reviewed date:07/28/2024 11:48:58 AM Interpretation: Performing Lab: Notes/Report: [facility] ,Vitamin D23.1 <20 ng/mL Vit D deficient >100 ng/mL Potential Toxicity 20-<30 ng/mL Vit D insufficient 30-100 ng/mL Vit D sufficient Performing Lab:see noteML - [facility] LBIRON Reviewed date:07/28/2024 11:48:58 AM Interpretation: Performing Lab: Notes/Report: [facility] ,Iron88.050.0-170.0 ug/dLPerforming Lab:see note - [facility] LB GLYCOHEMOGLOBIN A1C Reviewed date:07/28/2024 11:48:58 AM Interpretation: Performing Lab: Notes/Report: [facility] ,Glycohemoglobin A1C7.14.5-6.2 % ADA THERAPEUTIC TARGET < 7.0 ADA RECOMMENDED LIMIT 4.0 - 6.0 > 7.0 ACTION SUGGESTED Estimated Average Bqzrytz290Qaxtyqszad Lab:see note - [facility] Reason For Referral Reason R tempal basal cell Diagnosis 1 Nevus (D22.9) Referral Organization [facility] Referring Provider First Name Fernando Referring Provider Last Name Lambert Referring Provider Speciality Family Med yadi Referred Provider Tan Hutchison Referred Provider Specialty General Surg kateryna Referral Priority Routine Medications Medication SIG (Take, Route, Frequency, Duration) Notes Start Date End Date Status Calcium Plus Vitamin D ActiveMounjaro 2.5 MG/0.5ML2.5 Subcutaneous avntbt435ActiveSimvastatin 20 MGTAKE 1 TABLET BY MOUTH EVERY DAY; Duration: 90 daysActiveOneTouch Ultra Blue Test - Use 1 strip In Vitro once daily; Duration: 100 days Dx: E11.9 5ActiveAmoxicillin 500 MG4 caps Orally once; Duration: 1 days07/03/2025 ActiveLosartan Potassium 100 MGTAKE 1/2 ORALLY ONCE A DAY 90 DAYS; Duration: 90 ActiveJanuvia 100 MG1 tablet Orally Once a day; Duration: 90 days12/22/2022 ActiveDiflucan 100 MG1 tablet Orally daily; Duration: 10 days5Active Glimepiride 4 MGTAKE 2 TABLETS BY MOUTH EVERY DAY FOR 90 DAYS; Duration: 90 Active Immunizations Vaccine Route Administration Date Status Comme nts Flu, Flucelvax (2379-9986) (34900) 6 mos +, single-dose syringe IM Intramuscular 05/25/2023 Administered Social History Tobacco Use: Social History Observation Description Date Details (start date - stop date) Never Smoker NA - NA Tobacco Use/Smoking Question Answer Notes Patient is a nonsmoker Alcohol Screen (Audit-C) Question Answer Notes Did you have a drink containing alcohol in the p ast year? 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 (Z79.4)ActiveconfirmedProblem Hypertension (55151318)Hypertension (I10)ActiveconfirmedProblemArthralgia (16698979)Arthralgia (M25.50)ActiveconfirmedProblemDisorder of female genital tract (975583664)Pelvic pressure in female (N94.89)ActiveconfirmedProblemNevus (2867142398)Nevus (D22.9)Activeconfirmed Vital Signs Blood pressure diastolic 64 mm Hg 07/03/2025 Tbsvvx18 in07/03/2025lood pressure ivczhhbf239 mm Hg07/03/20256441Xlphxn971.8 lbs 07/03/2025BMI32.75 kg/m207/03/2025 Encounters Encounter Location Date Provider Diagnosis [facility] [address] [place] [address] 08/11/2024 Fernando Garvey [facility] [place] [address] 10/25/2024Doug [facility] [place] [address]/Doug [facility] [place] [address]/Doug yType 2 diabetes mellitus without complications E11.9B[facility] [place] [address]/Doug [facility] [address] [place] [address]/Doug [address] [place] [address]/10/2024Doug [address] [address]/Doug HoyPelvic pressure in female N94.89 and Type 2 diabetes mellitus without complications E11.9B[address] [address] 07/27/2024Doug HoyHypertension I10 ; Type 2 diabetes mellitus without complications E11.9 ; Hyperlipidemia, unspecified E78.5 ; Arthralgia M25.50 [address] [place] [address]/Doug HoyType 1 diabetes mellitus with other specified complication E10.69 ; Hypertension I10 ; Arthralgia M25.50 and Hyperlipidemia, unspecified E78.5 Assessments Encounter Date Diagnosis (ICD Code) Assessment Notes Treatment Notes Treatment Clinical Notes Section Notes 07/27/2024 Hypertension (ICD-10 - I10) 07/27/2024Type 2 diabetes mellitus without complications (ICD-10 - E11.9) 01/24/2025Type 1 diabetes mellitus with other specified complication (ICD-10 - E10.69)on meds - stbale but high CancelRx Response got Denied on 2025-07-03 11:22:09 for 'Jardiance 10 MG Tablet'Pharmacy Notes: Unable to cancel prescription; prescription was transferred to another pharmacy. Some or all of Rx received:03/26/2512Pelvic pressure in female (ICD-10 - N94.89) 07/03/2025Type 2 diabetes mellitus without complications (ICD-10 - E11.9)Failing on glimepreide, januvia - unable to tolerate jardianc adn metformin and actos - needs Tofwjeyn39/31/2025Type 2 diabetes mellitus without complications (ICD-10 - E11.9)01/24/2025Hypertension (ICD-10 - I10)stabel here - working on diet 07/27/2024Hyperlipidemia, unspecified (ICD-10 - E78.5)07/27/2024rthralgia (ICD- 10 - M25.50)01/24/2025rthralgia (ICD-10 - M25.50)ankle pain now - holding off on x-ray - injecting hip on /22/2025Hyperlipidemia, unspecified (ICD- 10 - E78.5)ijlhir3507/27/2024Nevus (ICD-10 - D22.9)07/03/2025OtherYearly Flu Shot Yearly Eye Exam Check Feet Daily. Plan Of Treatment Pending Test Test Name Order Date HEMOGLOBIN A1C (GLYCO) 07/27/2024 IRON, TOTAL 07/27/2024 LIPID PANEL (CHOL/TRIG/HDL/LDL) 07/27/19 CBC WITH DIFF (EXP 05/2025) 07/27/2024 VITAMIN D, 25 LEVEL (TOTAL) 07/27/2024 UA DIP NONAUTO WO MICRO (79267) - IN OFF ICE 07/03/2025 FECAL OCCULT BLOOD 11/26/2022 GLYCOHEMOGLOBIN A1C 01/26/2023 GLYCOHEMOGLOBIN A1C 07/05/2025 GLYCOHEMOGLOBIN A1C 11/26/2022 LIPID PROFILE 11/27/2022 LIVER PROFILE 11/27/2022 THYROID PROFILE WITH TSH 11/26/2022 THYROID PROFILE WITH TSH 01/29/2024 THYROID PANEL (T4/TSH/FREE T3) 5 MM screening mammo BI 01/29/2024 CMP (COMP MET CROWE) w/eGFR CKD-EPI 2024 Next Appt Details Provider Name:Fernando Garvey, 10:15:00 AM, [address] [facility], [place], [address], Insurance Providers Payer Name Payer Address Payer Phone Subscriber Number Group Number Insured Name Patient Relationship to Insured Coverage Start Date Coverage End Date [place] [address] [place] [address] [id number] Milad Archer - patient is the insuredANTHEM MEDICARE SUPPLEMENTPO B[address] [place] [id number], JaneSelf - patient is the insured Medical (General) History Medical History History ICD Code Anxiety F41.9 Cervical disc disease M50.90 COVID-19 U07.1 Diabetes mellitus E11.9 Fibrocystic breast disease N60.19 Hyperlipidemia E78.5 Osteopenia M85.80 Pleurisy R09.1 Ptosis H02.409 Vitamin D deficiency E55.9 Kidney stones N20.0 Trochanteric bursitis, right hip Surgical History Surgery Date(Month/Year) Revision Right Knee- 03/05/2022 EGD 04/17/2021 Right Total Knee 04/2019 Left knee Total Arthroplasty- Dr. Camara 09/27/2018
--- OUTSIDE RECORDS SUMMARY | 2025-07-05 11:17 | XMS_ITS | Clinical Summary ---
Author Organization [facility] Address [address] [place] [address] Care Team Providers Care Digital Marketing Strategist Name Role Phone Prem Verdin MD Primary Care Provider [phone] Allergies Active AllergyReactionsCriticalityNoted DateCommentsDiclofenacGI intolerance, Nausea Only,XxrnXmxmaj08/07/2022LisinoprilCough,AapgjzvQxt11/07/2022ioglitazone Itching,Rash,AtjwedxHwht22/07/2022ulfa AntibioticsHives,YsaovirEfmu02/07/2022 Sulfamethoxazole-CsbsszituomkRsccIni95/07/2023TramadolItching,Rash,UnknownMedium 10/10/2021 Medications MedicationSigDispense QuantityRefillsLast FilledStart DateEnd DateStatus [...] 21 tablet 5Active Active Problems ProblemNoted DateDiagnosed GbixZxjtcnzkxm06/18/2024 Encounters DateTypeDepartmentCare DjccEsktqblamax32/10/2025linisync Result Encounter [facility] External Department Unsolicited Dawn Brewer DO 04/13/2025 5:25 PM EDTAncillary Procedure [facility] [address] [place] [address] 04/13/2025 1:45 PM EDTOffice Visit [facility] [address] [place] [address] Joe Ribeiro DPM Primary osteoarthritis of left foot (Primary Dx); Pain in joint of left foot; Hallux valgus (acquired), left foot; Difficulty ngtydne2104/13/2025amboo flowsheet [facility] [address] [place] [address] Joe Ribeiro DPM 04/13/20257422Pvjlmj37/08/3126Qxkvcx16/30/2025Travelfrom Last 3 Months Immunizations ImmunizationAdministration DatesNext DueInfluenza, High Dose Seasonal, Preservative Free06/10/2024Influenza, injectable, MDCK, preservative free, ilranbewuboh33/20/2022,05/24/2021,05/11/2020Influenza, injectable, quadrivalent, preservative free04/21/2019,04/18/2018,05/07/2017Influenza, seasonal, injectable 04/05/2020 Family History Medical HistoryRelationNameCommentsDiabetesFatherHypertensionFatherDiabetes MotherHeart diseaseMotherHypertensionMotherCancerSiblingRelationNameStatus PvfwxwlqVojwyouc2UknsfdSoangawuXuwnrrOhqdltgrOkcqkjvDhx6 Social History Tobacco UseTypesPacks/DayYears UsedDateSmoking Tobacco: NeverSmokeless Tobacco: Never Tobacco Cessation:Counseling Given: No Alcohol UseStandard Drinks/WeekCommentsYes0 (1 standard drink = 0.6 oz pure alcohol)1-2 drinks less than monthly in the past year, Caffeine intake: 1-2 cups per dayCommentsNoSex and Gender InformationValueDate RecordedSex Assigned at BirthNot on fileLegal TwiYerrhz01/15/2023 7:34 PM EDTGender Identity Not on fileSexual OrientationNot on file Last Filed Vital Signs Vital SignReadingTime TakenCommentsBlood Tfqdxfse865/7008 11:29 AM EDT Pulse--Temperature--Respiratory Rate--Oxygen Saturation--Inhaled Oxygen Concentration--Lhoxle89.2 kg (190 lb)04/13/2025 1:25 PM EDLQonjuu697.1 cm (5' 5 )04/13/2025 1:25 PM EDTBody Mass Index31.6204/13/2025 1:25 PM EDT Plan of Treatment DateTypeDepartmentCare Team (Latest Contact Info)Wugyuwpugqw60/25/2026 10:00 AM EDTProcedure Visit [facility] [address] [address] Dawn Brewer DO [address] [place], [place] [address] Health MaintenanceDue DateLast DoneCommentsCT Onskgqihiieo87/06/1959Colonoscopy 1960Colorectal Cancer Mjbcaolip77/06/1959FIT-DNA1958FIT1958 FOBT1960 9166Jkuqjmjaaregz28/06/1959Pneumococcal Vaccine: 65+ Years (1 of 1 - PCV)2008Influenza Vaccine (#1)512/12/2023, 04/24/2022, 05/24/2021, Additional history xujshmSewppwulb22/10/292999/04/2025, 05/13/2024, 05/12/2023, Additional history existsDiabetes: Hemoglobin C0AGohuabqwwlis 02/13/2022HPV/BslzjpPiebnksnalvg69/25/2023ervical Cancer ScreeningDiscontinued Pap PaivlAmefhhxdkhkg08/12/2024, 02/27/2023 Procedures Procedure NamePriorityDate/TimeAssociated DiagnosisCommentsMM TOMOSYNTHESIS SCREENING BI05/15/2025 11:14 AM EST XR FOOT 3+ VIEWS LDAQNqvpsqq44/09/2025 5:24 PM EDT Primary osteoarthritis of left foot Pain in joint of left foot Hallux valgus (acquired), left foot Difficulty walking PAP FDOXBHusaaxg05/12/2024 12:00 AM EDTTHINPREP PAP AND HPV MRNA E6/E7 W/RFL HPV 16,18/64Rbogvxy51/25/2023 10:11 AM EDT Well woman exam with routine gynecological exam from Last 3 Months or Most Recently Relevant to Health Maintenance Results * MM TOMOSYNTHESIS SCREENING BI (05/15/2025 11:14 AM EST)Anatomical Region LateralityModalityOtherSpecimen (Source)Anatomical Location / Laterality Collection Method / VolumeCollection TimeReceived Time05/15/2025 11:14 AM EST Narrative 05/15/2025 11:15 AM EST [facility] ?[address] ? [place] [address] ? Mammography Report ? Signed ? Patient: STANISLAW ARCHERE Soheila ?MR#: [id number] ?? : 1960 ?Acct:[id number] ?? Age/Sex: 64 / F ?ADM Date: 05/15/ ?? Loc: MAMMO ? Attending Dr: Dawn Brewer D.O. ? Ordering Physician: Dawn Brewer D.O. ?Results: ? Date of Service: 05/15/ ?Follow Up: ? Procedure(s): MM tomosynthesis screening BI ?? Accession Number(s): [id number] ? cc: Dawn Brewer D.O.; Prem Verdin M.D. ? Patient Name: ? KATT ARCHER ? MR#: [id number] ? : 1960 ? Exam Date: 05/15/2025 ?? Ordering Doctor: DR DAWN BREWER . ? RADIOLOGY REPORT ? PROCEDURE: ? MM TOMOSYNTHESIS SCREENING BI ? COMPARISON: ? MM TOMOSYNTHESIS SCREENING BI, 05/13/2024. ??MM TOMOSYNTHESIS ?? SCREENING BI, 05/12/2023. ??MG MAMM SCREEN 3D CARISSA CAD, 04/24/2022. ??MG MAMM ?? SCREEN 3D CARISSA CAD, 03/29/2021. ? INDICATIONS: ? Screening ? Calculator Name ? NCI Breast Cancer Risk Assessment Tool ?? 5 Year Breast Cancer Risk ? 1.90% ?? Lifetime Breast Cancer Risk ? 6.70% ?? Personal Breast Cancer ?No ?? Personal Ovarian Cancer ? No ?? Treatments ? None ?? Family Cancers ? Brother with kidney cancer at age 67. ? LOCATION: ? [facility] ? BREAST COMPOSITION: ? There are scattered areas of fibroglandular density. ? FINDINGS: ? RIGHT BREAST: ??No significant suspicious finding. ??Similar benign-appearing ?? calcifications are present. ??Similar focal asymmetries are present. ? LEFT BREAST: ??No significant suspicious finding. Similar benign-appearing ?? calcifications are present. ??Similar focal asymmetries are present. ? DIAGNOSTIC CATEGORY 2--BENIGN FINDING. NO CHANGE FROM COMPARISON. ? RECOMMENDATIONS: ? ROUTINE MAMMOGRAM AND CLINICAL EVALUATION IN 12 MONTHS. ? Dictated by: Tomas Arambula MD on 05/15/2025 at 11:10 ? Approved by: Tomas Arambula MD on 05/15/2025 at 11:13 ? Dictated By: ?Tomas Arambula M.D. ? Signed By: ?05/15/25 1115 ? DD/ 1114 ? TD/TT: ? Family Counselor: Procedure Note Radiology, Radiologist, - 05/15/2025 [place] [address] Mammography Report Signed Patient: KATT ARCHER MMR#: [id number] : 9Acct:[id number] Age/Sex: 64 / FADM Date: 05/15/25 Loc: MAMMO Attending Dr: Dawn Brewer D.O. Ordering Physician: Dawn Brewer D.O.Results: Date of Service: 05/15/25Follow Up: Procedure(s): MM tomosynthesis screening BI Accession Number(s): [id number] cc: Dawn Brewer D.O.; Prem Verdin M.D. Patient Name: KATT ARCHER MR#: [id number] : 1960 Exam Date: 05/15/2025 Ordering Doctor: DR DAWN BREWER . RADIOLOGY REPORT PROCEDURE: MM TOMOSYNTHESIS SCREENING BI COMPARISON: MM TOMOSYNTHESIS SCREENING BI, 05/13/2024. MMTOMOSYNTHESIS SCREENING BI, 05/12/2023. MG MAMM SCREEN 3D CARISSA CAD, 04/24/2022. MG MAMM SCREEN 3D CARISSA CAD, 03/29/2021. INDICATIONS: Screening Calculator Name NCI Breast Cancer Risk Assessment Tool 5 Year Breast Cancer Risk 1.90% Lifetime Breast Cancer Risk 6.70% Personal Breast Cancer No Personal Ovarian Cancer No Treatments None Family Cancers Brother with kidney cancer at age 67. LOCATION: [facility] BREAST COMPOSITION: There are scattered areas of fibroglandulardensity. FINDINGS: RIGHT BREAST: No significant suspicious finding. Similarbenign-appearing calcifications are present. Similar focal asymmetries are [...] 11:13 Dictated By: Tomas Arambula M.D. Signed By:05/15/25 1115 DD/ 1114 TD/TT: Family Counselor: Authorizing ProviderResult TypeResult StatusCorey Daniella DOCLINISYNC IMAGINGFinal Result * XR foot 3+ views left (04/13/2025 [...] the 2nd TMT joint. Authorizing ProviderResult TypeResult StatusStevalex Ribeiro DPMIMG XR PROCEDURES Final Result * Pap Smear (02/15/2024 12:00 AM EDT)Specimen (Source)Anatomical Location / LateralityCollection Method / VolumeCollection TimeReceived TimeSwabCervical swab / Unknown Narrative Authorizing ProviderResult TypeResult StatusCorey Daniella DOLAB CYTOLOGY ORDERABLESFinal ResultPerforming OrganizationAddressCity/State/ZIP CodePhone Number EXTERNAL LAB * THINPREP PAP AND HPV MRNA E6/E7 W/RFL HPV 16,18/45 (02/27/2023 10:11 AM EDT) Narrative Authorizing ProviderResult TypeResult StatusAmy Brenda PALAB BLOOD ORDERABLES Final ResultPerforming OrganizationAddressCity/State/ZIP CodePhone Number EXTERNAL LAB from Last 3 Months or Most Recently Relevant to Health Maintenance Insurance Care Teams Team MemberRelationshipSpecialtyStart DateEnd Prem Verdin MD [address] [place] [phone] PCP - GeneralFamily Medicine02/09/23
== END 2025-07-05 11:13 | disposition home or self-care (01) ==
LOC: LAB 11:14
PROVIDERS: PCP Family Medicine; Visit Provider Family Medicine
DX: E11.9 Type 2 diabetes mellitus without complications (principal)
CPT/HCPCS: 36415; 83036